=== PATIENT | female | born 1955 ===

== ENCOUNTER → 2019-12-29 14:15 | Outpatient (BNVA) | payer MEDICARE, MEDICAID, SELFPAY | PROVIDERS: PCP Internal Medicine; Visit Provider Internal Medicine | DX: I26.99 Other pulmonary embolism without acute cor pulmonale (principal); Z51.81 Encounter for therapeutic drug level monitoring; Z79.01 Long term (current) use of anticoagulants | CPT/HCPCS: 85610 ==

== ENCOUNTER 2020-01-12 15:00 | Outpatient (REF) | payer MEDICARE, MEDICAID, SELFPAY ==
[2020-01-12 15:51] LABS: Glucose Urine UA 100 MG/DL (NEG); Leukocyte Esterase Urine NEG (NEG); Nitrite Urine NEG (NEG); Specific Gravity - Urine 1.025 (1.005-1.025); Urine Blood 1+ (NEG); Urine Ketones NEG (NEG); Urine Protein NEG (NEG-TRACE)
[2020-01-12 15:53] LABS: Appearance Urine CLEAR; Color Urine YELLOW
[2020-01-12 16:10] LABS: Bacteria Urine 1+ /LPF; Squamous Epithelial Cell Urine 1+ /LPF
[2020-01-12 16:37] LABS: Creatinine Urine 87.42 mg/dL; Protein/Creatinine Ratio, Ur 0.18 (<0.2); Total Protein Urine Random 16 mg/dL (<12)
[2020-01-17 12:32] LABS: Metanephrine, Free <25 pg/mL (<=57); Normetanephrines, Free 75 pg/mL (<=148); Total Metanephrine, Free 75 pg/mL (<=205)
[2020-01-21 17:21] LABS: Renin 0.23 ng/mL/h (0.25-5.82)
== END 2020-01-12 15:01 | disposition home or self-care (01) ==
LOC: HO.LAB 15:00
PROVIDERS: PCP Internal Medicine; Visit Provider Internal Medicine Hypertension Specialist
DX: E78.00 Pure hypercholesterolemia, unspecified (principal); I10 Essential (primary) hypertension; E11.9 Type 2 diabetes mellitus without complications
CPT/HCPCS: 81001; 82088; 83835; 84156; 84244; 85610

== ENCOUNTER 2020-01-25 13:38 | Outpatient (REF) | payer MEDICARE, MEDICAID, SELFPAY ==
--- NOTE | 2020-01-25 13:47 | XR_ITS ---
EXAMINATION: LUMBAR SPINE AND RIGHT HIP. CLINICAL INFORMATION: Low back pain. COMPARISON: None. TECHNIQUE: 3 views lumbar spine and 2 views right hip. FINDINGS: LUMBAR SPINE: There is normal lumbar lordosis. The vertebral heights, alignment and disc heights are normal. No visible acute fracture, dislocation or lytic process seen. The paravertebral soft tissues are normal. RIGHT HIP: There is no acute fracture, dislocation or subluxation seen. There is soft tissue calcification superior to the greater trochanter, likely calcific tendonitis. The soft tissues are unremarkable. XR/XR hip RT min 2V IMPRESSION: Unremarkable lumbar spine exam. Likely calcific tendinitis superior to the greater trochanter right hip.
--- NOTE | 2020-01-25 13:47 | XR_ITS ---
EXAMINATION: LUMBAR SPINE AND RIGHT HIP. CLINICAL INFORMATION: Low back pain. COMPARISON: None. TECHNIQUE: 3 views lumbar spine and 2 views right hip. FINDINGS: LUMBAR SPINE: There is normal lumbar lordosis. The vertebral heights, alignment and disc heights are normal. No visible acute fracture, dislocation or lytic process seen. The paravertebral soft tissues are normal. RIGHT HIP: There is no acute fracture, dislocation or subluxation seen. There is soft tissue calcification superior to the greater trochanter, likely calcific tendonitis. The soft tissues are unremarkable. XR/XR lumbar spine 2-3V IMPRESSION: Unremarkable lumbar spine exam. Likely calcific tendinitis superior to the greater trochanter right hip.
== END 2020-01-25 13:39 | disposition home or self-care (01) ==
LOC: HO.XRAY 13:38
PROVIDERS: PCP Internal Medicine; Visit Provider Internal Medicine
DX: M25.551 Pain in right hip (principal); M54.5 Low back pain
CPT/HCPCS: 72100; 73502

== ENCOUNTER → 2020-04-16 15:01 | Outpatient (BNVA) | payer MEDICARE, MEDICAID, SELFPAY | PROVIDERS: PCP Internal Medicine; Referring Provider Internal Medicine; Visit Provider Internal Medicine | DX: E11.9 Type 2 diabetes mellitus without complications (principal); I10 Essential (primary) hypertension; E78.5 Hyperlipidemia, unspecified; E04.9 Nontoxic goiter, unspecified | CPT/HCPCS: 82947; 99202 ==

== ENCOUNTER 2020-04-25 13:56 | Outpatient (REF) | payer MEDICARE, MEDICAID, SELFPAY ==
--- NOTE | ~2020-04-25 | US_ITS ---
EXAMINATION: US THYROID CLINICAL INFORMATION: Vitamin D deficiency, unspecified COMPARISON: None TECHNIQUE: Linear transducer grayscale and color Doppler examination with attention to the region of the thyroid. FINDINGS: SIZE: Measurements of the thyroid lobes and nodules are given in sagittal, anteroposterior and transverse dimensions respectively. Right Thyroid Lobe: 5.1 x 2.1 x 1.5 cm, volume 8.4 mL. Parenchyma: The gland echotexture is heterogeneous. Thyroid vascularity is increased. Left Thyroid Lobe: 4.3 x 1.9 x 1.7 cm, volume 7.3 mL. Parenchyma: The gland echotexture is heterogeneous. Thyroid vascularity is increased. Isthmus: 0.5 cm in maximum AP dimension. Estimated total number of nodules greater than or equal to 1 cm: 1. Customer Support Manager nodules are described as follows: 1. Location: Right mid. Size: 0.8 x 0.7 x 0.7 cm, volume 0.2 mL. Nodule characteristics: Composition: Solid (2). Echogenicity: Hyperechoic (1). Shape: Not taller than wide (0). Margins: Ill-defined (0). Echogenic Foci: None (0). ACR TI-RADS total points: 3 ACR TI-RADS category: 3 2. Location: Right mid. Size: 0.8 x 0.6 x 0.6 cm, volume 0.2 mL. Nodule characteristics: Composition: Solid (2). Echogenicity: Hyperechoic (1). Shape: Not taller than wide (0). Margins: Ill-defined (0). Echogenic Foci: None (0). ACR TI-RADS total points: 3 ACR TI-RADS category: 3 3. Location: Left lower. Size: 1.5 x 1.3 x 1.2 cm, volume 1.2 mL. Nodule characteristics: Composition: Solid (2). Echogenicity: Hyperechoic (1). Shape: Not taller than wide (0). Margins: Smooth (0). Echogenic Foci: None (0). ACR TI-RADS total points: 3 ACR TI-RADS category: 3 4. Location: Left lower. Size: 0.5 x 0.3 x 0.4 cm, volume 0.03 mL. Nodule characteristics: Composition: Solid (2). Echogenicity: Very hypoechoic (3). Shape: Not taller than wide (0). Margins: Smooth (0). Echogenic Foci: None (0). ACR TI-RADS total points: 5 ACR TI-RADS category: 4 NODES: No lymphadenopathy is seen in the tissue surrounding the thyroid gland. US/US thyroid IMPRESSION: Heterogeneous thyroid gland with increased vascularity. Correlate with thyroid function. Multiple nodules are identified, as detailed above. Nodule #3 is TR3. At a maximum dimension of 1.5 cm, follow-up is recommended in 1, 3, and 5 years. ACR TI-RADS RECOMMENDATIONS: Follow-up ultrasound. * TR1 (0 point) and TR 2 (2 points): No FNA or follow up * TR3 (3 points): FNA if more than or equal to 2.5 cm in maximum dimension, follow up in 1, 3 and 5 years if 1.5 to 2.4 cm in maximum dimension. * TR 4 (4-6 points): FNA if more than or equal to 1.5 cm in maximum dimension, follow up in 1, 2, 3 and 5 years if 1 to 1.4 cm in maximum dimension. * TR 5 (more than or equal to 7 points): FNA if more than or equal to 1 cm in maximum dimension, follow up every year for 5 years if 0.5 to 0.9 cm in maximum dimension. TR3, TR4 or TR5 nodules that are below the size threshold for follow up receive no follow up.
== END 2020-04-25 13:57 | disposition home or self-care (01) ==
LOC: HO.US 13:56
PROVIDERS: Visit Provider Internal Medicine
DX: E04.9 Nontoxic goiter, unspecified (principal); E55.9 Vitamin D deficiency, unspecified
CPT/HCPCS: 76536; 85610; 99211

== ENCOUNTER → 2020-04-27 14:06 | Outpatient (BNVA) | payer MEDICARE, MEDICAID, SELFPAY | PROVIDERS: PCP Internal Medicine; Visit Provider Internal Medicine | DX: I26.99 Other pulmonary embolism without acute cor pulmonale (principal); Z51.81 Encounter for therapeutic drug level monitoring; Z79.01 Long term (current) use of anticoagulants | CPT/HCPCS: 85610; 99211 ==

== ENCOUNTER 2020-05-02 12:48 | Outpatient (REF) | payer MEDICARE, MEDICAID, SELFPAY ==
--- NOTE | ~2020-05-02 | MM_ITS ---
EXAMINATION: MM DIAGNOSTIC DIGITAL BREAST TOMOSYNTHESIS, BILATERAL US DIAGNOSTIC ULTRASOUND BREAST, RIGHT CLINICAL INFORMATION: Palpable lump right periareolar region noted by patient. Also breast pain. Due for yearly. The lifetime risk of breast cancer based on the Tyrer-Cuzick Model is 9%. COMPARISON: Mammography: 10/08/2017, 07/02/2016, 12/23/2012 TECHNIQUE: Digital breast tomosynthesis is performed in both the craniocaudal and mediolateral oblique views along with computer-aided detection (CAD). Synthesized 2D images are generated from the tomosynthesis. Additional views are obtained: Exaggerated left CC, magnification right CC, magnification right ML. Ultrasound right breast is targeted to the area of palpable concern. Additional imaging performed inferior breast 4:00 through 6:00 position. Grayscale imaging and color Doppler are performed without and with harmonics. FINDINGS: There are scattered areas of fibroglandular density (ACR BI-RADS breast composition Category b). The left breast is unremarkable, unchanged from prior studies. There is no mass or architectural abnormality or abnormal calcifications. Scattered vascular and punctate round calcifications are again seen. The right breast has mild increased coarse calcifications outer quadrant mid to posterior 9:30 o'clock position and a few central mid right breast. They are slightly increased since 2018 will be reassessed again in 6 months to include magnification views. Fibronodular parenchymal pattern is similar to prior exam. No architectural abnormality. Ultrasound right breast demonstrates oval heterogeneous hypoechoic circumscribed mass 0.8 x 0.6 cm in contact with the deep dermis at the 8:00 areolar margin and corresponding to the palpable finding. There is no definite claw sign with the deep dermis to confirm an intradermal lesion. No stalk seen extending to skin surface. No increased or decreased through transmission of sound. Color Doppler shows internal vascularity consistent with a solid mass. Results are discussed with the patient at time of visit. Excisional or percutaneous biopsy of the palpable lesion is recommended. Given the location, surgical consult is recommended to assist with management plans. MM/MM tomosynthesis diagnostic BI IMPRESSION: Right: -Nodule 0.8 cm at areolar margin in contact with deep dermis and corresponding to the palpable lesion. Probable benign mildly increased coarse calcifications central and outer right breast. Left: No mammographic evidence of malignancy. ASSESSMENT: BI-RADS 4: Suspicious RECOMMENDATION: 1. Surgical consult regarding management of the right breast mass. 2. Short interval 6 month follow up right mammography for probable benign calcifications right breast. This patient's information was entered into a reminder system with a target due date for their next mammogram.
== END 2020-05-02 12:49 | disposition home or self-care (01) ==
LOC: HO.MAMMO 12:48
PROVIDERS: PCP Nurse Practitioner Family; Visit Provider Nurse Practitioner Family
DX: N64.4 Mastodynia (principal)
CPT/HCPCS: 76642; 77062; 77066; 85610; 99211

== ENCOUNTER → 2020-05-11 10:09 | Outpatient (BNVA) | payer MEDICARE, MEDICAID, SELFPAY | PROVIDERS: PCP Internal Medicine; Visit Provider Internal Medicine | DX: I26.99 Other pulmonary embolism without acute cor pulmonale (principal); Z51.81 Encounter for therapeutic drug level monitoring; Z79.01 Long term (current) use of anticoagulants | CPT/HCPCS: 85610; 99211 ==

== ENCOUNTER → 2020-05-16 15:30 | Outpatient (BNVA) | payer MEDICARE, MEDICAID, SELFPAY | PROVIDERS: PCP Internal Medicine; Visit Provider Surgery | DX: N63.10 Unspecified lump in the right breast, unspecified quadrant (principal) | CPT/HCPCS: 99202 ==

== ENCOUNTER → 2020-05-18 13:53 | Outpatient (BNVA) | payer MEDICARE, MEDICAID, SELFPAY | PROVIDERS: PCP Internal Medicine; Visit Provider Internal Medicine | DX: I26.99 Other pulmonary embolism without acute cor pulmonale (principal); Z51.81 Encounter for therapeutic drug level monitoring; Z79.01 Long term (current) use of anticoagulants | CPT/HCPCS: 85610; 99211 ==

== ENCOUNTER → 2020-05-22 13:58 | Outpatient (BNVA) | payer MEDICARE, MEDICAID, SELFPAY | PROVIDERS: PCP Internal Medicine; Visit Provider Internal Medicine | DX: I26.99 Other pulmonary embolism without acute cor pulmonale (principal); Z51.81 Encounter for therapeutic drug level monitoring; Z79.01 Long term (current) use of anticoagulants | CPT/HCPCS: 85610; 99211 ==

== ENCOUNTER 2020-05-25 07:56 | Outpatient (REF) | payer MEDICARE, MEDICAID, SELFPAY ==
[2020-05-25 07:14] VITALS: BP 196/83; PULSE 84; RESP 17; TEMP 36.9; O2SAT 100; BMI 32.7
--- NOTE | 2020-05-25 08:39 | W.PM.OPN ---
Operative Note Operative Note Date of Service: 05/25/20 Narrative: Preoperative diagnosis:Right nipple cyst Postoperative diagnosis: same Procedure: excision of right nipple cyst Surgeon: Jorge Alberto Humphrey MD Emergency Department Rn: none Anesthesia: local Indications for procedure: 64-year-old female with a previous history of an infected cyst of the right nipple now presented for excision. Operative findings: Cystic lesion located in the 7 to 8 o'clock position within the a areola measuring approximately 1 cm in diameter Specimen: cyst right nipple Estimated blood loss: 2 cc Complications: none Procedure details: patient was brought to the minor surgery suite placed in a supine position. After assuring the site of surgery and assuring informed consent the patient's right breast was prepped with Betadine and draped in a sterile fashion. Local anesthesia consisting 1% lidocaine with epinephrine was infiltrated over the cyst. Incision was then made directly over the cyst and carried down through subcutaneous tissue. Sharp dissection was then used to dissect the cyst from the surrounding subcutaneous tissue. Hemostasis was maintained with light pressure. the cyst was excise sent to pathology for further. Skin was then closed using interrupted 5 0 nylon sutures. 2 x 2 gauze and Tegaderm were then applied. The patient tolerated the procedure well. Sponge, instrument, needle counts were correct. The patient was discharged to home in stable condition.
--- NOTE | 2020-05-25 08:42 | MHC.SHP ---
Pre-Procedural Eval Section A The patient is an INPATIENT: No Changes since office visit: No Cold of Flu in the past 2 weeks, No New Medical Problems, No Changes in Medication and No Patient answered all questions The History & Physical has been completed within 30 days and I have reviewed it.: Yes Section B Chief Complaint: Right Breast Mass Allergies: Allergies Allergy/AdvReac Type Severity Reaction Status Date / Time acetaminophen [From Percocet] Allergy Severe Shortness Verified 05/22/20 13:59 of Breath Penicillins [PENICILLINS] Allergy Severe SOB, rash, Verified 05/22/20 13:59 itching codeine [CODEINE] Allergy Intermediate RASH SOB Verified 05/22/20 13:59 oxycodone [From PERCOCET] Allergy Intermediate RASH SOB Verified 05/22/20 13:59 kiwi [KIWI] Allergy Mild ITCHY IF Verified 05/22/20 13:59 TOUCHES pineapple [PINEAPPLE] Allergy Mild ITCHY IF Verified 05/22/20 13:59 TOUCHES metformin AdvReac Intermediate dizziness, Verified 05/22/20 13:59 blurred vision Plan Diagnosis/Plan: Unchanged I have reviewed the history and physical and performed a pertinent physical examination on my patient. No changes have occurred unless specified.
== END 2020-05-25 07:57 | disposition home or self-care (01) ==
LOC: HO.MS 07:56
PROVIDERS: PCP Internal Medicine; Visit Provider Surgery
PROC: (CPT 19120; principal; 2020-05-25 08:00)
DX: D24.1 Benign neoplasm of right breast (principal); I10 Essential (primary) hypertension; E11.9 Type 2 diabetes mellitus without complications; Z79.899 Other long term (current) drug therapy; Z88.0 Allergy status to penicillin; Z88.8 Allergy status to other drugs, medicaments and biological substances
CPT/HCPCS: 19120; 88304; 88305

== ENCOUNTER → 2020-05-29 14:19 | Outpatient (BNVA) | payer MEDICARE, MEDICAID, SELFPAY | PROVIDERS: PCP Internal Medicine; Visit Provider Internal Medicine | DX: I26.99 Other pulmonary embolism without acute cor pulmonale (principal); Z51.81 Encounter for therapeutic drug level monitoring; Z79.01 Long term (current) use of anticoagulants | CPT/HCPCS: 85610; 99211 ==

== ENCOUNTER → 2020-06-05 14:52 | Outpatient (BNVA) | payer MEDICARE, MEDICAID, SELFPAY | PROVIDERS: PCP Internal Medicine; Visit Provider Surgery | DX: N63.10 Unspecified lump in the right breast, unspecified quadrant (principal) | CPT/HCPCS: 99212 ==

== ENCOUNTER → 2020-06-07 13:30 | Outpatient (BNVA) | payer MEDICARE, MEDICAID, SELFPAY | PROVIDERS: PCP Internal Medicine; Visit Provider Internal Medicine | DX: I26.99 Other pulmonary embolism without acute cor pulmonale (principal); Z51.81 Encounter for therapeutic drug level monitoring; Z79.01 Long term (current) use of anticoagulants | CPT/HCPCS: 85610; 99211 ==

== ENCOUNTER → 2020-06-13 13:29 | Outpatient (BNVA) | payer MEDICARE, MEDICAID, SELFPAY | PROVIDERS: PCP Internal Medicine; Visit Provider Internal Medicine | DX: I26.99 Other pulmonary embolism without acute cor pulmonale (principal); Z51.81 Encounter for therapeutic drug level monitoring; Z79.01 Long term (current) use of anticoagulants | CPT/HCPCS: 85610; 99211 ==

== ENCOUNTER → 2020-06-14 14:08 | Outpatient (BNVA) | payer MEDICARE, MEDICAID, SELFPAY | PROVIDERS: PCP Internal Medicine; Visit Provider Dietitian, Registered ==

== ENCOUNTER 2020-06-15 09:47 | Outpatient (REF) | payer MEDICARE, MEDICAID, SELFPAY ==
[2020-06-15 11:28] LABS: Alanine Aminotransferase 11 U/L (0-31); Alkaline Phosphatase 97 U/L (39-117); Anion Gap 14 (12-20); Aspartate Amino Transferase 11 U/L (5-31); Bilirubin Total 0.7 mg/dL (0.0-1.0); Blood Urea Nitrogen 14 mg/dL (9-16); Calcium 8.7 mg/dL (8.4-10.2); Carbon Dioxide 29 mmol/L (22-29); Chloride 102 mmol/L (96-108); Cholesterol 282 mg/dL; Estimated Average Glucose 180 mg/dL; Estimated Glomerular Filt Rate > 60; Glucose Random 182 mg/dL (60-115); HDL Cholesterol 89 mg/dL; Hemoglobin A1c % 7.9 %; LDL Cholesterol Calculated 174 mg/dl; Potassium 3.6 mmol/L (3.3-5.1); Sodium 141 mmol/L (135-145); Total Protein 6.7 g/dL (6.5-8.0); Triglycerides 97 mg/dL
[2020-06-15 11:45] LABS: Glucose Urine UA NEG (NEG); Leukocyte Esterase Urine NEG (NEG); Nitrite Urine NEG (NEG); Urine Blood 1+ (NEG); Urine Ketones NEG (NEG); Urine Protein NEG (NEG-TRACE)
[2020-06-15 11:49] LABS: Appearance Urine CLEAR; Color Urine YELLOW
[2020-06-15 12:10] LABS: Creatinine Urine 104.84 mg/dL
[2020-06-15 12:17] LABS: Mucus Urine 1+ /LPF; Squamous Epithelial Cell Urine TRACE /LPF; WBC Urine 0 /HPF (0-4)
[2020-06-16 08:07] LABS: LDL Cholesterol Direct 165 mg/dL (<100)
== END 2020-06-15 09:48 | disposition home or self-care (01) ==
LOC: HO.LAB 09:47
PROVIDERS: Absent Provider Nurse Practitioner Family; PCP Internal Medicine; Visit Provider Internal Medicine
DX: E11.9 Type 2 diabetes mellitus without complications (principal); E55.9 Vitamin D deficiency, unspecified; N39.0 Urinary tract infection, site not specified
CPT/HCPCS: 36415; 80053; 80061; 81001; 82043; 82306; 83036; 83721

== ENCOUNTER → 2020-06-27 13:32 | Outpatient (BNVA) | payer MEDICARE, MEDICAID, SELFPAY | PROVIDERS: PCP Internal Medicine; Visit Provider Internal Medicine | DX: I26.99 Other pulmonary embolism without acute cor pulmonale (principal); Z51.81 Encounter for therapeutic drug level monitoring; Z79.01 Long term (current) use of anticoagulants | CPT/HCPCS: 85610; 99211 ==

== ENCOUNTER → 2020-06-29 14:24 | Outpatient (BNVA) | payer MEDICARE, MEDICAID, SELFPAY | PROVIDERS: PCP Internal Medicine; Visit Provider Internal Medicine | DX: I26.99 Other pulmonary embolism without acute cor pulmonale (principal); Z79.01 Long term (current) use of anticoagulants; Z51.81 Encounter for therapeutic drug level monitoring | CPT/HCPCS: 85610; 99211 ==

== ENCOUNTER → 2020-07-05 13:26 | Outpatient (BNVA) | payer MEDICARE, MEDICAID, SELFPAY | PROVIDERS: PCP Internal Medicine; Visit Provider Internal Medicine | DX: Z95.2 Presence of prosthetic heart valve (principal); Z79.01 Long term (current) use of anticoagulants; Z51.81 Encounter for therapeutic drug level monitoring | CPT/HCPCS: 85610; 99211 ==

== ENCOUNTER → 2020-07-12 13:47 | Outpatient (BNVA) | payer MEDICARE, MEDICAID, SELFPAY | PROVIDERS: PCP Internal Medicine; Visit Provider Internal Medicine | DX: I26.99 Other pulmonary embolism without acute cor pulmonale (principal); Z79.01 Long term (current) use of anticoagulants; Z51.81 Encounter for therapeutic drug level monitoring | CPT/HCPCS: 85610; 99211 ==

== ENCOUNTER → 2020-07-19 14:00 | Outpatient (BNVA) | payer MEDICARE, MEDICAID, SELFPAY | PROVIDERS: PCP Internal Medicine; Visit Provider Internal Medicine | DX: I26.99 Other pulmonary embolism without acute cor pulmonale (principal); Z51.81 Encounter for therapeutic drug level monitoring; Z79.01 Long term (current) use of anticoagulants | CPT/HCPCS: 85610; 99211 ==

== ENCOUNTER 2020-07-26 13:17 | Outpatient (REF) | payer MEDICARE, MEDICAID, SELFPAY ==
[2020-07-26 16:45] LABS: Glucose Urine UA 500 MG/DL (NEG); Leukocyte Esterase Urine NEG (NEG); Nitrite Urine NEG (NEG); Specific Gravity - Urine >= 1.030 (1.005-1.025); Urine Blood 1+ (NEG); Urine Ketones 5 MG/DL (NEG); Urine Protein 1+ MG/DL (NEG-TRACE)
[2020-07-26 16:49] LABS: Appearance Urine CLOUDY; Color Urine YELLOW
[2020-07-26 16:56] LABS: Bacteria Urine TRACE /LPF; Squamous Epithelial Cell Urine 2+ /LPF; WBC Urine 0-2 /HPF (0-4)
[2020-07-26 16:57] LABS: Amorphous Sediment Urine 2+ /LPF
[2020-07-27 12:27] LABS: BV Int Neg Control Negative (Negative)
[2020-07-27 12:28] LABS: BV Int Pos Control Positive (Positive)
[2020-07-29 07:32] LABS: HPV mRNA E6/E7 rflx Not Detected (Not Detected)
== END 2020-07-26 13:18 | disposition home or self-care (01) ==
LOC: HO.LAB 13:17
PROVIDERS: Advanced Practice Midwife; PCP Internal Medicine; Visit Provider Internal Medicine
DX: Z01.419 Encounter for gynecological examination (general) (routine) without abnormal findings (principal); N89.8 Other specified noninflammatory disorders of vagina; R35.0 Frequency of micturition; E11.9 Type 2 diabetes mellitus without complications; I10 Essential (primary) hypertension; E78.5 Hyperlipidemia, unspecified; Z88.6 Allergy status to analgesic agent; Z88.5 Allergy status to narcotic agent; Z88.0 Allergy status to penicillin; Z88.8 Allergy status to other drugs, medicaments and biological substances; Z91.018 Allergy to other foods
CPT/HCPCS: 81001; 85610; 87480; 87510; 87624; 87660; 88142; 99211

== ENCOUNTER → 2020-08-09 10:23 | Outpatient (BNVA) | payer MEDICARE, MEDICAID, SELFPAY | PROVIDERS: PCP Internal Medicine; Visit Provider Internal Medicine | DX: K62.5 Hemorrhage of anus and rectum (principal); I26.99 Other pulmonary embolism without acute cor pulmonale; Z51.81 Encounter for therapeutic drug level monitoring; Z79.82 Long term (current) use of aspirin; Z79.01 Long term (current) use of anticoagulants; Z79.899 Other long term (current) drug therapy | CPT/HCPCS: 46600; 85610; 99202; 99211 ==

== ENCOUNTER → 2020-08-16 12:59 | Outpatient (BNVA) | payer MEDICARE, MEDICAID, SELFPAY | PROVIDERS: PCP Internal Medicine; Visit Provider Internal Medicine | DX: E11.9 Type 2 diabetes mellitus without complications (principal); I10 Essential (primary) hypertension; E78.5 Hyperlipidemia, unspecified; E55.9 Vitamin D deficiency, unspecified; I26.99 Other pulmonary embolism without acute cor pulmonale; Z51.81 Encounter for therapeutic drug level monitoring; Z79.01 Long term (current) use of anticoagulants | CPT/HCPCS: 82947; 85610; 99211; 99212 ==

== ENCOUNTER → 2020-08-30 14:24 | Outpatient (BNVA) | payer MEDICARE, MEDICAID, SELFPAY | PROVIDERS: PCP Internal Medicine; Visit Provider Internal Medicine | DX: I26.99 Other pulmonary embolism without acute cor pulmonale (principal); Z51.81 Encounter for therapeutic drug level monitoring; Z79.01 Long term (current) use of anticoagulants | CPT/HCPCS: 85610; 99211 ==

== ENCOUNTER 2020-09-18 17:50 | Outpatient (REF) | payer MEDICARE, MEDICAID, SELFPAY | END 2020-09-18 17:51 | disposition home or self-care (01) | LOC: HO.LNP 17:50 | PROVIDERS: Visit Provider Internal Medicine | DX: R35.0 Frequency of micturition (principal); R30.0 Dysuria | CPT/HCPCS: 87086; 87088; 87186 ==

== ENCOUNTER 2020-09-21 06:44 | Day surgery (SDC) | payer MEDICARE, MEDICAID, SELFPAY ==
[2020-09-17 11:07] VITALS: BMI 32.8
--- NOTE | 2020-09-20 09:28 | P.CONAN_ITS ---
Documented by User: Keisha Bray 09/20/20 09:39 HPI - Anesthesia Eval Consult details Narrative: 64yo F for Colonoscopy with poss Polypectomy started on abx for UTI 09/18/20 Coumadin for h/o PE PMFSH Active Problems Active Problems: All Active Problems (Updated 09/18/20 @ 15:15 by Erick Villanueva MD) Erythematous rash (Acute) Urinary frequency (Acute) Varicose veins of both lower extremities with pain (Acute) Current use of anticoagulant therapy (Acute) Personal history of pulmonary embolism (Acute) Diabetes (Acute) Breast mass, right (Acute) 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 (Acute) Rectal bleeding (Acute) Obesity (BMI 30-39.9) (Acute) Overactive bladder (Acute) Migraine (Acute) GERD without esophagitis (Acute) Allergic rhinitis (Acute) Fibromyalgia (Acute) Vitamin B12 deficiency (Acute) Asthma (Acute) Bilateral primary osteoarthritis of knee (Acute) Pure hypercholesterolemia (Acute) Benign essential hypertension (Acute) Bilateral lower extremity edema (Acute) Medicare annual wellness visit, initial (Acute) Mammogram abnormal (Acute) Intertrigo (Acute) UTI (urinary tract infection) (Acute) Breast nodule (Acute) Goiter (Acute) Vitamin D deficiency (Acute) HLD (hyperlipidemia) (Acute) HTN (hypertension) (Acute) T2DM (type 2 diabetes mellitus) (Acute) Arthritis (Acute) Breast pain, right (Acute) Calcific tendinitis of right hip (Acute) Right lumbar radiculopathy (Acute) Right hip pain (Acute) Low back pain (Acute) Past Medical History Medical History Allergic rhinitis Arthritis Asthma Benign essential hypertension Bilateral lower extremity edema Bilateral primary osteoarthritis of knee Breast nodule Breast pain, right Calcific tendinitis of right hip Fibromyalgia GERD without esophagitis Goiter HLD (hyperlipidemia) HTN (hypertension) Hx pulmonary embolism Intertrigo Low back pain Mammogram abnormal Medicare annual wellness visit, initial Migraine Obesity (BMI 30-39.9) Overactive bladder Pure hypercholesterolemia Rectal bleeding Right hip pain Right lumbar radiculopathy T2DM (type 2 diabetes mellitus) Urinary frequency UTI (urinary tract infection) Varicose veins of both lower extremities with pain Vitamin B12 deficiency Vitamin D deficiency Family History Family History Father Hypertension Myocardial infarction Stroke Mother Hypertension Diabetes Surgical History Surgical History History of colonoscopy History of incision and drainage History of mammogram History of tonsillectomy and adenoidectomy Hx of breast surgery Hx of cataract extraction Hx of cholecystectomy Hx of eye surgery Hx of tubal ligation Social History Social History Housing: House Alcohol intake: never Patient Tobacco Use Status: Never used Tobacco Second Hand Smoke Exposure: No Use of substances other than those prescribed or required for medical reasons: No Have you been hit, kicked, punched, or otherwise hurt by someone within the past year? If so, by whom?: No Are you DNR?: No Advance Directives: No Advance Directives Information Provided: No Advance Directives on File: No Recently lost weight without trying: No Eating poorly because of decreased appetite: No Nutrition Risks: No Nutritional Risk Patient : No service: No Current occupational status: disabled Meds Allergies Allergy/AdvReac Type Severity Reaction Status Date / Time Penicillins [PENICILLINS] Allergy Severe SOB, rash, Verified 09/21/20 07:23 itching codeine [CODEINE] Allergy Intermediate RASH SOB Verified 09/21/20 07:23 oxycodone [From PERCOCET] Allergy Intermediate RASH SOB Verified 09/21/20 07:23 kiwi [KIWI] Allergy Mild ITCHY IF Verified 09/21/20 07:23 TOUCHES pineapple [PINEAPPLE] Allergy Mild ITCHY IF Verified 09/21/20 07:23 TOUCHES metformin AdvReac Intermediate dizziness, Verified 09/21/20 07:23 blurred vision Home Medications Medication Instructions Recorded Confirmed Last Taken Type albuterol sulfate 90 mcg/actuation 2 puff INHALATION Q4-6H PRN 01/24/20 09/18/20 Unknown History aerosol inhaler amlodipine 10 mg tablet 10 mg PO DAILY 01/24/20 09/18/20 Unknown History ascorbate calcium (vitamin C) 500 500 mg PO DAILY 01/24/20 09/18/20 Unknown History mg tablet aspirin 81 mg tablet,delayed 81 mg PO DAILY 01/24/20 09/18/20 09/20/20 History release budesonide-formoterol HFA 160 2 puff INHALATION BID 01/24/20 09/18/20 Unknown History mcg-4.5 mcg/actuation aerosol inhaler clonidine HCl 0.1 mg tablet 0.1 mg PO BID 01/24/20 09/18/20 Unknown History cocoa butter-zinc oxide 76 %-10 % 1 supp IN BEDTIME 01/24/20 09/18/20 Unknown History rectal suppository cyanocobalamin (vitamin B-12) 1,000 mcg PO DAILY 01/24/20 09/18/20 Unknown History 1,000 mcg capsule desloratadine 5 mg tablet 5 mg PO DAILY 01/24/20 09/18/20 Unknown History ezetimibe 10 mg tablet 10 mg PO DAILY 01/24/20 09/18/20 Unknown History fluticasone 250 mcg-salmeterol 50 1 inh INHALATION BID 01/24/20 09/18/20 Unknown History mcg/dose blistr powdr for inhalation fluticasone propionate 50 2 spray INTRANASAL DAILY 01/24/20 09/18/20 Unknown History mcg/actuation nasal spray,suspension hydrochlorothiazide 25 mg tablet 25 mg PO DAILY 01/24/20 09/18/20 Unknown His tory labetalol 200 mg tablet 200 mg PO BID 01/24/20 09/18/20 Unknown History montelukast 10 mg tablet 10 mg PO DAILY 01/24/20 09/18/20 Unknown History omeprazole 20 mg capsule,delayed 20 mg PO DAILY 01/24/20 09/18/20 Unknown History release ondansetron 8 mg disintegrating 8 mg PO Q8H 01/24/20 09/18/20 Unknown History tablet sitagliptin 100 mg tablet 100 mg PO DAILY 01/24/20 09/18/20 Unknown History topiramate 25 mg tablet 25 mg PO BEDTIME tab 01/24/20 09/18/20 Unknown History metformin 500 mg tablet 1,000 mg PO BID tab 04/16/20 09/18/20 Unknown History albuterol sulfate 2.5 mg CONTINUOUS NEBULIZATION 06/13/20 09/18/20 Unknown History Q4-6H PRN metformin 500 mg tablet,extended mg PO 07/05/20 09/18/20 Unknown History release 24 hr Exam Exam Date and Time: September 20, 2020 0928 Height,Weight and Vital Signs: Height 5 ft 7 in Weight 95.254 kg Pertinent Lab Results Pertinent Lab Results: Laboratory Tests 05/03/19 06/15/20 12:10 10:10 WBC 6.4 Hgb 10.8 L Hct 34.4 L Plt Count 268 Sodium 141 Potassium 3.6 Chloride 102 Carbon Dioxide 29 BUN 14 Creatinine 0.69 Assessment and Plan Assessment Anesthesia Assessment: Chart Reviewed Documented by User: Katt Mayberry 09/21/20 07:37 [facility] Past Medical History Medical History Allergic rhinitis Arthritis Asthma Benign essential hypertension Bilateral lower extremity edema Bilateral primary osteoarthritis of knee Breast nodule Breast pain, right Calcific tendinitis of right hip Fibromyalgia GERD without esophagitis Goiter HLD (hyperlipidemia) HTN (hypertension) Hx pulmonary embolism Intertrigo Low back pain Mammogram abnormal Medicare annual wellness visit, initial Migraine Obesity (BMI 30-39.9) Overactive bladder Pure hypercholesterolemia Rectal bleeding Right hip pain Right lumbar radiculopathy T2DM (type 2 diabetes mellitus) Urinary frequency UTI (urinary tract infection) Varicose veins of both lower extremities with pain Vitamin B12 deficiency Vitamin D deficiency Family History Family History Father Hypertension Myocardial infarction Stroke Mother Hypertension Diabetes Surgical History Surgical History History of colonoscopy History of incision and drainage History of mammogram History of tonsillectomy and adenoidectomy Hx of breast surgery Hx of cataract extraction Hx of cholecystectomy Hx of eye surgery Hx of tubal ligation Social History Social History Housing: House Alcohol intake: never Patient Tobacco Use Status: Never used Tobacco Second Hand Smoke Exposure: No Use of substances other than those prescribed or required for medical reasons: No Have you been hit, kicked, punched, or otherwise hurt by someone within the past year? If so, by whom?: No Are you DNR?: No Advance Directives: No Advance Directives Information Provided: No Advance Directives on File: No Recently lost weight without trying: No Eating poorly because of decreased appetite: No Nutrition Risks: No Nutritional Risk Patient : No service: No Current occupational status: disabled Meds Allergies Allergy/AdvReac Type Severity Reaction Status Date / Time Penicillins [PENICILLINS] Allergy Severe SOB, rash, Verified 09/21/20 07:23 itching codeine [CODEINE] Allergy Intermediate RASH SOB Verified 09/21/20 07:23 oxycodone [From PERCOCET] Allergy Intermediate RASH SOB Verified 09/21/20 07:23 kiwi [KIWI] Allergy Mild ITCHY IF Verified 09/21/20 07:23 TOUCHES pineapple [PINEAPPLE] Allergy Mild ITCHY IF Verified 09/21/20 07:23 TOUCHES metformin AdvReac Intermediate dizziness, Verified 09/21/20 07:23 blurred vision Home Medications Medication Instructions Recorded Confirmed Last Taken Type albuterol sulfate 90 mcg/actuation 2 puff INHALATION Q4-6H PRN 01/24/20 09/18/20 Unknown History aerosol inhaler amlodipine 10 mg tablet 10 mg PO DAILY 01/24/20 09/18/20 Unknown History ascorbate calcium (vitamin C) 500 500 mg PO DAILY 01/24/20 09/18/20 Unknown History mg tablet aspirin 81 mg tablet,delayed 81 mg PO DAILY 01/24/20 09/18/20 09/20/20 History release budesonide-formoterol HFA 160 2 puff INHALATION BID 01/24/20 09/18/20 Unknown History mcg-4.5 mcg/actuation aerosol inhaler clonidine HCl 0.1 mg tablet 0.1 mg PO BID 01/24/20 09/18/20 Unknown History cocoa butter-zinc oxide 76 %-10 % 1 supp IN BEDTIME 01/24/20 09/18/20 Unknown History rectal suppository cyanocobalamin (vitamin B-12) 1,000 mcg PO DAILY 01/24/20 09/18/20 Unknown History 1,000 mcg capsule desloratadine 5 mg tablet 5 mg PO DAILY 01/24/20 09/18/20 Unknown History ezetimibe 10 mg tablet 10 mg PO DAILY 01/24/20 09/18/20 Unknown History fluticasone 250 mcg-salmeterol 50 1 inh INHALATION BID 01/24/20 09/18/20 Unknown History mcg/dose blistr powdr for inhalation fluticasone propionate 50 2 spray INTRANASAL DAILY 01/24/20 09/18/20 Unknown History mcg/actuation nasal spray,suspension hydrochlorothiazide 25 mg tablet 25 mg PO DAILY 01/24/20 09/18/20 Unknown History labetalol 200 mg tablet 200 mg PO BID 01/24/20 09/18/20 Unknown History montelukast 10 mg tablet 10 mg PO DAILY 01/24/20 09/18/20 Unknown History omeprazole 20 mg capsule,delayed 20 mg PO DAILY 01/24/20 09/18/20 Unknown History release ondansetron 8 mg disintegrating 8 mg PO Q8H 01/24/20 09/18/20 Unknown History tablet sitagliptin 100 mg tablet 100 mg PO DAILY 01/24/20 09/18/20 Unknown History topiramate 25 mg tablet 25 mg PO BEDTIME tab 01/24/20 09/18/20 Unknown History metformin 500 mg tablet 1,000 mg PO BID tab 04/16/20 09/18/20 Unknown History albuterol sulfate 2.5 mg CONTINUOUS NEBULIZATION 06/13/20 09/18/20 Unknown History Q4-6H PRN metformin 500 mg tablet,extended mg PO 07/05/20 09/18/20 Unknown History release 24 hr Exam Airway Mallampati Class: II TM Dist: >3cm Neck ROM: Full Heart: RRR Lungs: CTA Assessment and Plan Assessment Anesthesia Assessment: Anesthesia Plan Discussed and Chart Reviewed Final Anesthetic Review NPO: Yes ASA Class: III Final Preanesthetic Review: Meds/Allgs Chart Reviewed, Consent Obtained/Reviewed and Anes Risks/Benef Reviewed Patient Risk: Intermediate Procedure Risk: Low Anesthetic Plan Anesthetic Plan: MAC: Disposition: Standard PACU
[2020-09-21 06:56] LABS: Glucose, Whole Blood 253 mg/dL (60-115)
[2020-09-21 07:02] VITALS: BP 193/79; PULSE 96; RESP 18; TEMP 36.3; O2SAT 100
[2020-09-21 07:05] LABS: INTERNATIONAL NORM RATIO 1.3 (0.9-1.1); Prothrombin Time 15.3 SEC (10.8-13.0)
[2020-09-21] MEDS: Lactated Ringers 1,000 ML 100 ML IVCONT (07:18)
--- NOTE | 2020-09-21 07:28 | MHC.SHP ---
Pre-Procedural Eval Section A Date of Service: 09/21/20 Section B Chief Complaint: rectal bleeding Details of Present Illness: has periodic rectal bleeding, on Coumadin Relevant Family History (Specify if Yes): No Relevant Social History: None Present Medications: see Short Stay Collaborative assessment Medical History: Significant History (DM, HTN, fibromylagia, GERD, back pain, h/o of PE) Allergies: Allergies Allergy/AdvReac Type Severity Reaction Status Date / Time Penicillins [PENICILLINS] Allergy Severe SOB, rash, Verified 09/21/20 07:23 itching codeine [CODEINE] Allergy Intermediate RASH SOB Verified 09/21/20 07:23 oxycodone [From PERCOCET] Allergy Intermediate RASH SOB Verified 09/21/20 07:23 kiwi [KIWI] Allergy Mild ITCHY IF Verified 09/21/20 07:23 TOUCHES pineapple [PINEAPPLE] Allergy Mild ITCHY IF Verified 09/21/20 07:23 TOUCHES metformin AdvReac Intermediate dizziness, Verified 09/21/20 07:23 blurred vision Review of Systems Sugical H&P ROS: Negative: Constitution, Cardiovascular, Respiratory, Neurological, Psychiatric, Hem-Onc, Allergic/Immunologic, Gastrointestinal, Genitourinary, Musculoskeletal, Integumentary, Endocrine and Eyes/Ears/Nose/Throat Exam Surgical H&P Exam: Normal: HEENT, Normal: Heart, Normal: Lungs, Normal: Extremities, Normal: Abdomen, Normal: Skin and Normal: Neurological Plan Diagnosis/Plan: Unchanged I have reviewed the history and physical and performed a pertinent physical examination on my patient. No changes have occurred unless specified.
[2020-09-21 07:52] VITALS: BP 126/63; PULSE 80; RESP 14; TEMP 36.2; O2SAT 97
--- NOTE | 2020-09-21 07:53 | W.PM.OPN ---
Operative Note Operative Note Date of Service: 09/21/20 Narrative: Preop diagnosis: Rectal bleeding Postop diagnosis: 1. heavy sigmoid diverticulosis 2. external and internal hemorrhoids Procedure: Colonoscopy Surgeon: Ck Yeung MD the patient is a 64-year-old female referred to me because of passage of bright blood per rectum periodically. She is on anticoagulation for history of PE. Her last colonoscopy was in 2012. I recommended a follow-up colonoscopy because of her bleeding. She understood the technique of the procedure as well as the risks, benefits, and alternatives. She was brought to the operating room placed in left lateral decubitus position under monitored anesthesia care. A full digital rectal wasdone. There was note of bulky internal and external hemorrhoids . The tip of the Olympus scope was gently inserted through the anal orifice and advanced with insufflation all the way to the cecum. The cecum was intubated. The cecum was identified via visualization of the ileocecal valve as well as the appendiceal orifice. The cecal mucosa was unremarkable. The scope was gradually withdrawn with careful examination of the entire colonic mucosa being done with scope withdrawal. The patient had good bowel prep so it was unlikely that any lesion may have been missed. There was note of heavy diverticulosis in the sigmoid. The rectum was reached and there were no lesions seen. The anal canal showed bulky internal andexternal hemorrhoids. The scope was then withdrawn completely. The patient tolerated procedure well. There were no complications noted . She falls at average risk for colon cancer so her next colonoscopy may be in 10 years.
--- NOTE | 2020-09-21 07:57 | PM.OP ---
Brief Operative Note Date of Service: 09/21/20 Pre-op diagnosis: Rectal bleeding Post-op diagnosis: other ( internal and external hemorrhoids, sigmoid diverticulosis) Procedure: colonoscopy Surgeon: Ck Yeung MD Anesthesia: MAC Was an Coronary Care Unit Nurse used for this Procedure?: No Estimated blood loss (mL): 0 Pathology: none sent Condition: stable Disposition: PACU
[2020-09-21 08:07] VITALS: BP 165/79; PULSE 83; RESP 17; TEMP 36.2; O2SAT 97
--- NOTE | 2020-09-21 08:29 | PC.NURSE ---
Pt became nauseous upon going to DC area. Anesthesia Dr. Correa contacted. Medicated with Zofran 4 mg SL. Awaiting for med effect, no vomiting. Skin warm, dry, skin pale. Resting presently. Denies any pain.
== END 2020-09-21 09:05 | disposition home or self-care (01) ==
PROVIDERS: Nurse Practitioner; PCP Internal Medicine; Visit Provider Surgery
PROC: 0DBE8ZZ Excision of Large Intestine, Via Natural or Artificial Opening Endoscopic (ICD-10-PCS; CPT 45378; principal; 2020-09-21 07:30)
DX: K62.5 Hemorrhage of anus and rectum (principal); K57.30 Diverticulosis of large intestine without perforation or abscess without bleeding; K64.8 Other hemorrhoids; K64.4 Residual hemorrhoidal skin tags; K21.9 Gastro-esophageal reflux disease without esophagitis; J45.909 Unspecified asthma, uncomplicated; I10 Essential (primary) hypertension; E11.9 Type 2 diabetes mellitus without complications; Z79.84 Long term (current) use of oral hypoglycemic drugs; Z86.711 Personal history of pulmonary embolism; Z79.01 Long term (current) use of anticoagulants; Z79.51 Long term (current) use of inhaled steroids; Z79.899 Other long term (current) drug therapy; Z79.82 Long term (current) use of aspirin
CPT/HCPCS: 45378; 36415; 82947; 85610; J3010

== ENCOUNTER → 2020-09-25 13:45 | Outpatient (BNVA) | payer MEDICARE, MEDICAID, SELFPAY | PROVIDERS: PCP Internal Medicine; Visit Provider Internal Medicine | DX: I26.99 Other pulmonary embolism without acute cor pulmonale (principal); Z51.81 Encounter for therapeutic drug level monitoring; Z79.01 Long term (current) use of anticoagulants | CPT/HCPCS: 85610; 99211 ==

== ENCOUNTER → 2020-10-04 13:01 | Outpatient (BNVA) | payer MEDICARE, MEDICAID, SELFPAY | PROVIDERS: PCP Internal Medicine; Visit Provider Internal Medicine | DX: I26.99 Other pulmonary embolism without acute cor pulmonale (principal); Z51.81 Encounter for therapeutic drug level monitoring; Z79.01 Long term (current) use of anticoagulants | CPT/HCPCS: 85610; 99211 ==

== ENCOUNTER → 2020-10-11 13:22 | Outpatient (BNVA) | payer MEDICARE, MEDICAID, SELFPAY | PROVIDERS: PCP Internal Medicine; Visit Provider Internal Medicine | DX: I26.99 Other pulmonary embolism without acute cor pulmonale (principal); Z51.81 Encounter for therapeutic drug level monitoring; Z79.01 Long term (current) use of anticoagulants | CPT/HCPCS: 85610; 99211 ==

== ENCOUNTER → 2020-10-18 10:58 | Outpatient (BNVA) | payer MEDICARE, MEDICAID, SELFPAY | PROVIDERS: PCP Internal Medicine; Referring Provider Internal Medicine; Visit Provider Surgery | DX: K62.5 Hemorrhage of anus and rectum (principal); K57.90 Diverticulosis of intestine, part unspecified, without perforation or abscess without bleeding; K64.4 Residual hemorrhoidal skin tags; Z79.52 Long term (current) use of systemic steroids; Z79.02 Long term (current) use of antithrombotics/antiplatelets; Z79.84 Long term (current) use of oral hypoglycemic drugs; Z79.899 Other long term (current) drug therapy | CPT/HCPCS: 99212 ==

== ENCOUNTER → 2020-10-25 13:32 | Outpatient (BNVA) | payer MEDICARE, MEDICAID, SELFPAY | PROVIDERS: PCP Internal Medicine; Visit Provider Surgery Vascular Surgery | DX: I83.11 Varicose veins of right lower extremity with inflammation (principal) | CPT/HCPCS: 85610; 99202; 99211 ==

== ENCOUNTER 2020-10-31 15:12 | Outpatient (REF) | payer MEDICARE, MEDICAID, SELFPAY ==
--- NOTE | ~2020-10-31 | MM_ITS ---
EXAMINATION: MM DIAGNOSTIC DIGITAL BREAST TOMOSYNTHESIS, RIGHT CLINICAL INFORMATION: Short interval six-month follow-up probable benign coarse calcifications central and posterior outer right breast. Prior imaging demonstrated 0.8 cm nodule left areola margin in contact with deep dermis. Subsequent surgical excision performed 05/25/2020 (nipple adenoma; no malignancy identified). The lifetime risk of breast cancer based on the Tyrer-Cuzick Model is 7%. COMPARISON: Mammography: 05/02/2020 (diagnostic), 10/08/2017 (BI-RADS 2), targeted right breast ultrasound 05/02/2020. TECHNIQUE: Digital breast tomosynthesis is performed in both the craniocaudal and mediolateral oblique views along with computer-aided detection (CAD). Synthesized 2D images are generated from the tomosynthesis. Additional magnification views are obtained in the CC x2 and ML projections. FINDINGS: There are scattered areas of fibroglandular density (ACR BI-RADS breast composition Category b). Parenchymal pattern shows no interval mass or architectural abnormality. There are again numerous vascular calcifications. The grouped benign-appearing coarse calcifications central right breast mid depth and posterior 9:30 o'clock position are slightly increased in number between 2017 and 2020. Both areas are stable from prior diagnostic exam. These may represent areas of fibroadenomatous change. Calcifications will be reassessed again at time of annual bilateral mammography, due in 6 months. Results are provided to the patient at time of visit by the technologist. MM/MM tomosynthesis diagnostic RT IMPRESSION: Probable benign calcifications mid central and posterior outer right breast, stable from prior diagnostic exam 05/02/2020. ASSESSMENT: BI-RADS 3: Probably Benign RECOMMENDATION: Diagnostic mammography at time of annual bilateral mammography, due in 6 months. This patient's information was entered into a reminder system with a target due date for their next mammogram.
== END 2020-10-31 15:13 | disposition home or self-care (01) ==
LOC: HO.MAMMO 15:12
PROVIDERS: PCP Internal Medicine; Visit Provider Nurse Practitioner Family
DX: R92.1 Mammographic calcification found on diagnostic imaging of breast (principal); I26.99 Other pulmonary embolism without acute cor pulmonale; Z51.81 Encounter for therapeutic drug level monitoring; Z79.01 Long term (current) use of anticoagulants
CPT/HCPCS: 77061; 77065; 85610; 99211

== ENCOUNTER → 2020-11-06 15:05 | Outpatient (BNVA) | payer MEDICARE, MEDICAID, SELFPAY | PROVIDERS: PCP Internal Medicine; Visit Provider Internal Medicine | DX: I26.99 Other pulmonary embolism without acute cor pulmonale (principal); Z51.81 Encounter for therapeutic drug level monitoring; Z79.01 Long term (current) use of anticoagulants | CPT/HCPCS: 85610; 99211 ==

== ENCOUNTER 2020-11-15 10:04 | Outpatient (REF) | payer MEDICARE, MEDICAID, SELFPAY ==
--- NOTE | ~2020-11-15 | US_ITS ---
EXAMINATION: BILATERAL LOWER EXTREMITY VENOUS ULTRASOUND (Reflux Exam) CLINICAL INDICATION: This is a 64-year-old female with varicose veins. Venous insufficiency. COMPARISON: None. TECHNIQUE: Color flow triplex imaging and compression Doppler was performed to evaluate both the deep and the superficial systems bilaterally. To evaluate the superficial system, the examination was performed in the upright position. Color-flow Doppler ultrasound and compression ultrasound were utilized. In addition, maneuvers were utilized to demonstrate reflux. FINDINGS: 1. DEEP VENOUS ULTRASOUND OF THE RIGHT LOWER EXTREMITY: Common Femoral Vein: Compressible, normal respiratory variation and augmented flow. Femoral vein: Compressible, normal color flow and augmentation. Popliteal Vein: There is reflux in the popliteal vein with the reflux time of 3108 ms. Deep Reflux: There is evidence of reflux in the deep system in the popliteal vein. . There is no evidence of a Quinteros's cyst. 2. SUPERFICIAL ULTRASOUND WITH DOPPLER OF RIGHT LOWER EXTREMITY GREAT SAPHENOUS VEIN: Saphenofemoral junction: 0.8 cm. There is no reflux. Mid thigh: 0.3 cm. There is no reflux. Above knee: 0.4 cm. There is no reflux. Below knee: 0.3 cm. There is no reflux. Mid calf: 0.2 cm. The reflux time is 1160 ms. Ankle: 0.2 cm. There is no reflux. GSV REFLUX: No evidence of reflux at the junction. DUPLICATED GREAT SAPHENOUS VEIN: There is a duplicated lateral great saphenous vein measuring 0.5 cm with reflux at the junction of 3180 ms. SMALL SAPHENOUS VEIN: Upper: 0.3 cm. There is no reflux at the junction. Lower: 0.2 cm SSV REFLUX: There is no evidence of reflux at the junction. VEIN OF GIACOMINI: None Imaged. PERFORATORS: There are 0.2 cm proximal thigh and mid calf perforators. There is reflux in the proximal thigh jamb cutter of 2280 ms. VARICOSITIES: There are 0.2 cm anterior mid calf varicose veins with a reflux time of 1180 ms. 3. DEEP VENOUS ULTRASOUND OF THE LEFT LOWER EXTREMITY: Common Femoral Vein: Compressible, normal respiratory variation and augmented flow. Femoral vein: Compressible, normal color flow and augmentation. Popliteal Vein: There is reflux in the popliteal vein with the reflux time 1040 ms. Deep Reflux: There is is evidence of reflux in the deep system in the popliteal vein. There is no evidence of a Quinteros's cyst. 4. SUPERFICIAL ULTRASOUND WITH DOPPLER OF LEFT LOWER EXTREMITY GREAT SAPHENOUS VEIN: Saphenofemoral junction: 0.6 cm. There is no reflux at the junction. Mid thigh: 0.4 cm. There is no reflux. Above knee: 0.2 cm Below knee: 0.2 cm Mid calf: 0.2 cm. There is a reflux time of 3112 ms Ankle: 0.2 cm. There is no reflux. GSV REFLUX: There is no reflux at the junction. There is isolated reflux at the knee and the mid calf, respectively. DUPLICATED GREAT SAPHENOUS VEIN: There is a 0.3 cm duplicated right lateral great saphenous vein without reflux. SMALL SAPHENOUS VEIN: Upper: 0.2 cm Lower: 0.2 cm SSV REFLUX: No evidence of reflux. VEIN OF GIACOMINI: None Imaged. PERFORATORS: None Imaged VARICOSITIES: There is a 0.2 cm mid thigh varicose vein with reflux time of 2980 ms. US/US venous duplex LE BI IMPRESSION: 1. There are patent bilateral great saphenous veins without evidence of reflux at the saphenofemoral junction. 2. There are patent bilateral small saphenous veins without evidence of reflux at the junction. 3. There is a patent duplicated right lateral great saphenous vein with reflux at the saphenofemoral junction. 4. There are bilateral 0.2 cm varicose veins as noted with reflux.
== END 2020-11-15 10:05 | disposition home or self-care (01) ==
LOC: HO.US 10:04
PROVIDERS: Visit Provider Surgery Vascular Surgery
DX: I83.11 Varicose veins of right lower extremity with inflammation (principal); I26.99 Other pulmonary embolism without acute cor pulmonale; Z51.81 Encounter for therapeutic drug level monitoring; Z79.01 Long term (current) use of anticoagulants
CPT/HCPCS: 85610; 93970; 99211

== ENCOUNTER → 2020-11-29 13:02 | Outpatient (BNVA) | payer MEDICARE, MEDICAID, SELFPAY | PROVIDERS: PCP Internal Medicine; Visit Provider Surgery Vascular Surgery | DX: I83.813 Varicose veins of bilateral lower extremities with pain (principal) | CPT/HCPCS: 99212 ==

== ENCOUNTER 2020-12-21 12:25 | Outpatient (REF) | payer MEDICARE, MEDICAID, SELFPAY ==
[2020-12-21 09:23] LABS: MANUAL DIFF FLAG NO
[2020-12-21 09:58] LABS: Basophils Percent Auto 0.2 % (0-2); Eosinophils Absolute Auto 0.1 X10*3/uL (0.0-0.4); Eosinophils Percent Auto 2.6 % (0-4); Hematocrit 26.7 % (37-47); Hemoglobin 9.2 g/dl (12.0-16.0); Imm Gran Abs Auto 0.01 X10*3/uL (0.00-0.03); Imm Gran Pct Auto 0.2 % (0.0-0.4); Lymphocytes Absolute Auto 2.4 X10*3/uL (1.2-4.9); Lymphocytes Percent Auto 51.7 % (20-40); Mean Corpuscular HGB Conc 34.5 g/dl (31.0-35.0); Mean Corpuscular Hemoglobin 35.1 pg (27.0-33.0); Mean Corpuscular Volume 101.9 fL (80-98); Mean Platelet Volume 10.4 fL (9.4-12.3); Monocytes Absolute Auto 0.3 X10*3/uL (0.1-1.2); Monocytes Percent Auto 7.2 % (2-11); Neutrophils Absolute Auto 1.8 X10*3/uL (2.0-8.3); Neutrophils Percent Auto 38.1 % (45-73); Platelet Count 331 X10*3/uL (160-400); Red Blood Count 2.62 X10*6/uL (4.20-5.50); Red Cell Distribution Width 15.9 % (11.0-16.0); White Blood Count 4.6 X10*3/uL (4.8-10.8)
[2020-12-21 10:04] LABS: Appearance Urine CLEAR; Color Urine YELLOW; Glucose Urine UA 250 MG/DL (NEG); Leukocyte Esterase Urine NEG (NEG); Nitrite Urine NEG (NEG); Specific Gravity - Urine >= 1.030 (1.005-1.025); UACC Culture Trigger NO; Urine Blood TRACE (NEG); Urine Ketones NEG (NEG); Urine Protein 1+ MG/DL (NEG-TRACE)
[2020-12-21 10:15] LABS: Mucus Urine 3+ /LPF; RBC Urine 0-2 /HPF (0); Squamous Epithelial Cell Urine TRACE /LPF
[2020-12-21 10:27] LABS: Estimated Average Glucose 240 mg/dL
[2020-12-21 10:55] LABS: Erythrocyte Sedimentation Rate 63 MM/HR (0-20)
[2020-12-21 10:58] LABS: TSH reflex Free T4 1.16 uIU/mL (0.32-4.0); Vitamin D 25-OH Total 17.8 ng/mL (>30)
[2020-12-21 11:04] LABS: Creatinine Urine 238.05 mg/dL; Microalbum/Creatinine Ratio Ur 48.7 ug/mg cr
[2020-12-21 11:10] LABS: Folate 5.1 ng/mL (> or = 4.0); Vitamin B12 < 146 pg/mL (200-900)
[2020-12-21 11:11] LABS: Alanine Aminotransferase 11 U/L (0-31); Albumin Level 3.7 g/dL (3.5-5.0); Alkaline Phosphatase 99 U/L (39-117); Anion Gap 11 (12-20); Aspartate Amino Transferase 12 U/L (5-31); Bilirubin Total 0.9 mg/dL (0.0-1.0); Blood Urea Nitrogen 12 mg/dL (9-16); Calcium 8.6 mg/dL (8.4-10.2); Carbon Dioxide 30 mmol/L (22-29); Chloride 101 mmol/L (96-108); Cholesterol 279 mg/dL; Estimated Glomerular Filt Rate > 60; Glucose Fasting 255 mg/dL (60-99); HDL Cholesterol 73 mg/dL; LDL Cholesterol Calculated 182 mg/dl; Potassium 3.3 mmol/L (3.3-5.1); Sodium 139 mmol/L (135-145); Total Protein 6.2 g/dL (6.5-8.0); Triglycerides 120 mg/dL
== END 2020-12-21 12:26 | disposition home or self-care (01) ==
LOC: HO.LAB 12:25
PROVIDERS: Internal Medicine; PCP Internal Medicine; Visit Provider Internal Medicine
DX: I10 Essential (primary) hypertension (principal); K21.9 Gastro-esophageal reflux disease without esophagitis; E53.8 Deficiency of other specified B group vitamins; M79.7 Fibromyalgia; E11.9 Type 2 diabetes mellitus without complications; E78.00 Pure hypercholesterolemia, unspecified; R60.0 Localized edema; E66.9 Obesity, unspecified; E55.9 Vitamin D deficiency, unspecified
CPT/HCPCS: 36415; 80053; 80061; 81001; 82043; 82306; 82607; 82746; 83036; 84443; 85025; 85652

== ENCOUNTER → 2021-01-10 13:46 | Outpatient (BNVA) | payer MEDICARE, MEDICAID, SELFPAY | PROVIDERS: PCP Internal Medicine; Visit Provider Internal Medicine | DX: I26.99 Other pulmonary embolism without acute cor pulmonale (principal); Z51.81 Encounter for therapeutic drug level monitoring; Z79.01 Long term (current) use of anticoagulants | CPT/HCPCS: 85610; 99211 ==

== ENCOUNTER → 2021-01-16 14:01 | Outpatient (BNVA) | payer MEDICARE, MEDICAID, SELFPAY | PROVIDERS: PCP Internal Medicine; Visit Provider Internal Medicine | DX: I26.99 Other pulmonary embolism without acute cor pulmonale (principal); Z51.81 Encounter for therapeutic drug level monitoring; Z79.01 Long term (current) use of anticoagulants | CPT/HCPCS: 85610; 99211 ==

== ENCOUNTER → 2021-01-23 14:01 | Outpatient (BNVA) | payer MEDICARE, MEDICAID, SELFPAY | PROVIDERS: PCP Internal Medicine; Visit Provider Internal Medicine | DX: I26.99 Other pulmonary embolism without acute cor pulmonale (principal); Z51.81 Encounter for therapeutic drug level monitoring; Z79.01 Long term (current) use of anticoagulants | CPT/HCPCS: 85610 ==

== ENCOUNTER → 2021-01-30 10:36 | Outpatient (BNVA) | payer MEDICARE, MEDICAID, SELFPAY | PROVIDERS: PCP Internal Medicine; Visit Provider Internal Medicine | DX: Z86.711 Personal history of pulmonary embolism (principal); Z51.81 Encounter for therapeutic drug level monitoring; Z79.01 Long term (current) use of anticoagulants | CPT/HCPCS: 85610; 99211 ==

== ENCOUNTER 2021-02-06 12:06 | Outpatient (REF) | payer MEDICARE, MEDICAID, SELFPAY ==
[2021-02-06 15:17] LABS: Prothrombin Time 76.1 SEC (9.9-13.0)
[2021-02-06 15:21] LABS: INTERNATIONAL NORM RATIO 6.4 (0.9-1.1)
== END 2021-02-06 12:07 | disposition home or self-care (01) ==
LOC: HO.LAB 12:06
PROVIDERS: Internal Medicine; PCP Internal Medicine; Visit Provider Internal Medicine
DX: I26.99 Other pulmonary embolism without acute cor pulmonale (principal); E11.65 Type 2 diabetes mellitus with hyperglycemia; E11.40 Type 2 diabetes mellitus with diabetic neuropathy, unspecified; E11.319 Type 2 diabetes mellitus with unspecified diabetic retinopathy without macular edema; E11.21 Type 2 diabetes mellitus with diabetic nephropathy; I10 Essential (primary) hypertension; E78.5 Hyperlipidemia, unspecified; E55.9 Vitamin D deficiency, unspecified; Z51.81 Encounter for therapeutic drug level monitoring; Z79.01 Long term (current) use of anticoagulants; Z79.4 Long term (current) use of insulin
CPT/HCPCS: 36415; 82947; 85610; 96372; 99212; J1815

== ENCOUNTER → 2021-02-19 15:48 | Outpatient (BNVA) | payer MEDICARE, MEDICAID, SELFPAY | PROVIDERS: PCP Internal Medicine; Visit Provider Internal Medicine | DX: Z86.711 Personal history of pulmonary embolism (principal); Z51.81 Encounter for therapeutic drug level monitoring; Z79.01 Long term (current) use of anticoagulants | CPT/HCPCS: 85610; 99211 ==

== ENCOUNTER → 2021-02-25 10:36 | Outpatient (BNVA) | payer MEDICARE, MEDICAID, SELFPAY | PROVIDERS: PCP Internal Medicine; Visit Provider Internal Medicine | DX: I26.99 Other pulmonary embolism without acute cor pulmonale (principal); Z51.81 Encounter for therapeutic drug level monitoring; Z79.01 Long term (current) use of anticoagulants | CPT/HCPCS: 85610; 99211 ==

== ENCOUNTER → 2021-03-06 14:30 | Outpatient (BNV) | payer MEDICARE, OTHER, MEDICAID, SELFPAY | PROVIDERS: PCP Internal Medicine; Visit Provider Internal Medicine Medical Oncology | DX: Z86.711 Personal history of pulmonary embolism (principal) | CPT/HCPCS: 99203; 99212; 99213; 99214 ==

== ENCOUNTER 2021-07-24 12:49 | Outpatient (REF) | payer OTHER, MEDICAID, SELFPAY ==
--- NOTE | ~2021-07-24 | MM_ITS ---
EXAMINATION: MM DIAGNOSTIC DIGITAL BREAST TOMOSYNTHESIS, BILATERAL CLINICAL INFORMATION: Due for yearly. Also follow-up probable benign calcifications central and posterior upper outer right breast, possibly fibroadenomatous change. History surgical excision lesion near right nipple 05/25/2020 (nipple adenoma; no malignancy identified). The lifetime risk of breast cancer based on the Tyrer-Cuzick Model is 7%. COMPARISON: Mammography: 10/31/2020, 05/02/2020, 10/08/2017 TECHNIQUE: Digital breast tomosynthesis is performed in both the craniocaudal and mediolateral oblique views along with computer-aided detection (CAD). Synthesized 2D images are generated from the tomosynthesis. Additional magnification right CC and magnification right ML views are provided. FINDINGS: There are scattered areas of fibroglandular density (ACR BI-RADS breast composition Category b). Parenchymal pattern is similar to prior studies and there is no interval mass or architectural abnormality. There is right nipple retraction post surgery. Bilateral scattered punctate and bilateral vascular calcifications are again noted. The relatively coarse calcifications for follow-up mid central right breast and posterior 9:00 position are similar to prior diagnostic studies. They will be reassessed again in 12 months to conclude long-term surveillance. Results are provided to the patient at time of visit by the technologist. MM/MM tomosynthesis diagnostic BI IMPRESSION: Right: -Right breast calcifications for follow-up are stable, probable benign. -Mild right nipple retraction status post surgery (nipple adenoma). -No significant changes from prior study. Left: -No mammographic evidence of malignancy. ASSESSMENT: BI-RADS 3: Probably Benign RECOMMENDATION: Diagnostic mammography at time of next annual exam, due in 12 months. This patient's information was entered into a reminder system with a target due date for their next mammogram.
== END 2021-07-24 12:50 | disposition home or self-care (01) ==
LOC: HO.MAMMO 12:49
PROVIDERS: Visit Provider Internal Medicine
DX: R92.1 Mammographic calcification found on diagnostic imaging of breast (principal)
CPT/HCPCS: 77062; 77066

== ENCOUNTER → 2021-08-14 13:55 | Outpatient (BNVA) | payer OTHER, MEDICAID, SELFPAY | PROVIDERS: PCP Internal Medicine; Referring Provider Internal Medicine; Visit Provider Internal Medicine | DX: R07.2 Precordial pain (principal); R06.02 Shortness of breath; I10 Essential (primary) hypertension | CPT/HCPCS: 93005; 99202 ==

== ENCOUNTER 2021-09-18 15:26 | Outpatient (REF) | payer OTHER, SELFPAY ==
--- NOTE | ~2021-09-18 | XR_ITS ---
EXAMINATION: XR HAND, LEFT CLINICAL INFORMATION: Pain. COMPARISON: None TECHNIQUE: PA, lateral, and oblique views of the left hand. FINDINGS: There is no evidence of acute fracture or dislocation of the left hand. An old healed fracture about the distal 2nd metacarpal is seen. No radiopaque foreign bodies. Joint spaces are generally maintained without erosive change. XR/XR hand LT min 3V IMPRESSION: No acute fracture or dislocation of the left hand.
== END 2021-09-18 15:27 | disposition home or self-care (01) ==
LOC: HO.XRAY 15:26
PROVIDERS: PCP Internal Medicine; Visit Provider Internal Medicine
DX: M79.642 Pain in left hand (principal); M79.645 Pain in left finger(s)
CPT/HCPCS: 73130

== ENCOUNTER → 2021-12-11 07:59 | Outpatient (REF) | payer OTHER, SELFPAY ==
--- NOTE | ~2021-12-11 | NM_ITS ---
Lexiscan Myocardial perfusion study Indication: Chest pain, shortness of breath, assess for coronary disease and ischemia Technique: The patient was brought in for a Lexiscan perfusion study on 12/11/2021 and was injected 0.4 mg of Lexiscan intravenously. Within a minute of this injection 30 mCi of sestamibi was given intravenously. Images were obtained using the SPECT gamma camera interlaced with the gating device. Images were obtained in supine position. Resting perfusion study was performed on 12/13/2021. Patient was administered 30 mCi of sestamibi intravenously at rest. Images were then obtained in supine position. Total DLP 157mGy-cm. Images were processed with the software and compared side to side in short axis, horizontal long axis and vertical long axis views. Findings: Raw acquisition reviewed. Arms by the patient's side. The stress perfusion study showed mildly diminished tracer uptake in the distal inferolateral wall. There is improvement with CT attenuation correction suggestive of diaphragmatic attenuation artifact. However, in the attenuation corrected images, there is reduced uptake in the distal anterior wall and adjacent septum and apex, more likely from technical issues then true findings. The gated study shows normal LV systolic function with calculated LVEF of 57%. LV cavity is normal in size. The gated study shows normal wall thickening and contraction of segments. Resting study shows no significant perfusion abnormality. Gating at rest reveals normal wall motion with ejection fraction at 55%. The findings are consistent with mild reversible distal inferolateral reversible defect, suspected to be from diaphragmatic attenuation artifact. NM/NM cardiolite stress test Impression: 1. Myocardial perfusion imaging study shows likely normal myocardial perfusion. No definitive findings of any ischemia or infarction. 2. Gated LVEF is 57% during stress and 55% during rest. 3. Transient ischemic dilatation not present. EKG component of the test reported separately.
--- NOTE | 2021-12-11 08:02 | CA_ITS ---
Acquisition Time: 2021-12-11 08:23:25 Total Exercise Time: 00:02:00 Test Indications: Chest Pain HTN Medications: SEE H Protocol: LEXISCAN Max HR: 109 BPM 70% of Pred: 154 BPM Max BP: 156/078 mmHG Max Work Load: 1.0 METS Pharmacological stress test with Lexsican injection, while sitting and kicking her legs, without anginal symptoms, without arrythmia, with normotensive response to injection, with nondiagnostic EKG for ischemia. In recovery she reported feeling lightheaded and was treated with Aminophylline 75mg IVP to reverse Lexiscan with resolution of symptom. Nuclear images pending. Test reviewed with Dr Isaacs. Referred By: Shilo Isaacs Overread By: ELAYNE PEREZ
== END ==
LOC: HO.CARD 07:59
PROVIDERS: PCP Internal Medicine; Visit Provider Internal Medicine
DX: R07.2 Precordial pain (principal)
CPT/HCPCS: 78452; 93017; A9500; J0280; J2785

== ENCOUNTER → 2021-12-19 10:27 | Outpatient (REF) | payer OTHER, SELFPAY ==
--- NOTE | 2021-12-19 10:31 | CA_ITS ---
Transthoracic Echocardiogram Patient (Last, First, Middle): Lanny Valderrama, Gender: Female Date of : 1955 Age: 66 Procedure Date: 12/19/2021 Procedure Type: Transthoracic Echocardiogram Location: OP Height: 170.18 cm Weight: 95.71 kg BSA: 2.07 m2 Heart Rate: bpm BP: 182 / 86 mmHg Manufacturing Recruiter: PHUONG Referring MD: Shilo Isaacs MD Drop Wire Stringer: Afshin Garcia MD Symptoms: I25.10 - Atherosclerotic heart disease of [place] coronary... Study Quality: Adequate ECG Rhythm: Sinus Conclusions: - 1. Normal LV systolic function with mild LVH with impaired relaxation filling pattern 2. Normal cardiac valvular Doppler 3. No gross pericardial effusion Findings Left Ventricle Normal left ventricular size and systolic function. There is mildly increased left ventricular wall thickness. The visually estimated ejection fraction is between 60-65%. Spectral Doppler is indicative of an impaired relaxation filling pattern. E/E prime ratio is between 8 and 15 consistent with indeterminate filling pressures. Right Ventricle Normal right ventricular cavity size. There is normal right ventricular systolic function. There is mildly increased right ventricular wall thickness. Atria The left atrium is likely dilated. Interatrial shunt cannot be excluded. The right atrium is normal in size. Aortic Valve There is mild calcification of the aortic valve. There is no aortic valve stenosis. There is no aortic valve regurgitation. Mitral Valve There is mild anterior and posterior mitral leaflet thickening. There is mild mitral annular calcification. There is trace mitral valve regurgitation. There is no mitral valve stenosis. Pulmonic Valve The pulmonic valve was not well visualized. Tricuspid Valve Likely normal tricuspid valve structure and function. Tricuspid regurgitation envelope is inadequate for calculation of right ventricular systolic pressure. Great Vessels All visible segments of the aorta are normal in size. The pulmonary artery was not well visualized. Venous The inferior vena cava is normal in size and collapses greater than 50% with inspiration. Pericardium/Pleural There is no evidence of pericardial effusion. Prior Study Comparison No significant change compared to prior study dated: 11/08/2013. Measurements 2D Linear Measurements IVSd: 1.42 0.6-0.9/0.6-1.0 cm LVIDd: 3.60 3.9-5.3/4.2-5.9 cm LVIDd Index: 1.74 2.4-3.2/2.2-3.1 cm/m2 LVIDs: 2.63 2.0-3.6 cm LVPWd: 1.29 0.7-1.1 cm LA Diam: 3.10 2.7-3.8/3.0-4.0 cm LAIDs Index: 1.50 1.5-2.3 cm/m2 LV Mass: 212.77 67-162/88-224 g LV Mass Index: 102.79 43-95/49-115 g/m2 LVOT Diam: 2.20 3.0+(-)1.3 cm 2D Systolic Function EF 4C: 61.30 >55% EF 2C: 64.70 >55% EF BiP: 65.10 >55% Mitral Valve MV Pk E: 0.94 MV PK A: 1.24 MV Decel Time: 267.00 E/A: 0.80 E'Lateral: 5.00 E'Medial: 4.90 E/E' Med: 19.20 E/E' Lat: 18.90 PHT: 78.00 MVA PHT: 2.82 Decel [place]: 3.53 Aortic Valve AoV Pk Darinel: 1.78 AoV Mn Darinel: 1.20 AoV VTI: 0.38 AoV Pk Grad: 13.00 Aov Mn Grad: 7.00 SHU Cont.VTI: 2.56 LVOT LVOT Pk Darinel: 1.06 LVOT Mn Darinel: 0.75 LVOT VTI: 0.25 LVOT Pk Grad: 4.00 LVOT Mn Grad: 3.00 LVOT Diam: 2.20 LVOT Area: 3.80 Diastolic Function MV Pk E: 0.94 MV Pk A: 1.24 E/A: 0.80 E'Medial: 4.90 E/E' Med: 19.20 E' Laterial: 5.00 E/E' Lat: 18.90 Right Ventricle TAPSE (mm): 21.20 TVS' Darinel: 12.10 Tricuspid Valve RA Press: 3.00 Great Vessels Aorta Sinus of Valsalva: 3.77 2.0-3.[address] [place]: 2.75 1.7-3.4 cm Ao Asc: 3.40 2.1-3.4 cm Updated in Other Vendor System with Status of Final Afshin Garcia MD electronically signed on 12/20/2021 12:23:39 PM with status of Final
== END ==
LOC: HO.CARD 10:27
PROVIDERS: PCP Internal Medicine; Visit Provider Internal Medicine
DX: R07.2 Precordial pain (principal); I25.10 Atherosclerotic heart disease of native coronary artery without angina pectoris
CPT/HCPCS: 93306

== ENCOUNTER 2021-12-25 10:19 | Outpatient (REF) | payer OTHER, SELFPAY ==
[2021-12-25 10:56] LABS: MANUAL DIFF FLAG NO
[2021-12-25 11:38] LABS: Appearance Urine Clear; Color Urine Yellow; Glucose Urine UA Negative (Negative); Leukocyte Esterase Urine Trace (Negative); Nitrite Urine Negative (Negative); PH 5.5 (5.0-9.0); UMIC TRIGGER UACC YES; Urine Blood Negative (Negative); Urine Ketones Negative (Negative); Urine Protein Trace mg/dL (Neg-Trace)
[2021-12-25 11:41] LABS: Basophils Percent Auto 0.5 % (0-2); Eosinophils Absolute Auto 0.1 X10*3/uL (0.0-0.4); Eosinophils Percent Auto 1.5 % (0-4); Hematocrit 34.4 % (37.0-47.0); Hemoglobin 10.8 g/dl (12.0-16.0); Imm Gran Abs Auto 0.01 X10*3/uL (0.00-0.03); Imm Gran Pct Auto 0.2 % (0.0-0.4); Lymphocytes Absolute Auto 2.5 X10*3/uL (1.2-4.9); Lymphocytes Percent Auto 39.9 % (20-40); Mean Corpuscular HGB Conc 31.4 g/dl (31.0-35.0); Mean Corpuscular Hemoglobin 26.3 pg (27.0-33.0); Mean Corpuscular Volume 83.9 fL (80.0-98.0); Mean Platelet Volume 11.1 fL (9.4-12.3); Monocytes Absolute Auto 0.4 X10*3/uL (0.1-1.2); Monocytes Percent Auto 7.2 % (2-11); Neutrophils Absolute Auto 3.1 x10*3/uL (2.0-8.3); Neutrophils Percent Auto 50.7 % (45-73); Platelet Count 384 X10*3/uL (160-400); Red Cell Distribution Width 16.1 % (11.0-16.0); White Blood Count 6.1 X10*3/uL (4.8-10.8)
[2021-12-25 11:43] LABS: Bacteria Urine None Seen (None Seen); Hyaline Casts Urine 0-2 /LPF (0-2); RBC Urine 0-2 /HPF (0-2); Squamous Epithelial Cell Urine 0-2 /HPF (0-2); WBC Urine 0-5 /HPF (0-5)
[2021-12-25 11:48] LABS: Estimated Average Glucose 163 mg/dL; Hemoglobin A1c % 7.3 %
[2021-12-25 11:59] LABS: Creatinine Urine 138.44 mg/dL; Microalbum/Creatinine Ratio Ur 15.8 ug/mg cr
[2021-12-25 12:06] LABS: Alanine Aminotransferase 9 U/L (0-31); Albumin Level 4.3 g/dL (3.5-5.0); Alkaline Phosphatase 90 U/L (39-117); Anion Gap 16 (12-20); Aspartate Amino Transferase 13 U/L (5-31); Bilirubin Total 0.8 mg/dL (0.0-1.0); Blood Urea Nitrogen 14 mg/dL (9-16); Calcium 9.1 mg/dL (8.4-10.2); Carbon Dioxide 27 mmol/L (22-29); Chloride 104 mmol/L (96-108); Cholesterol 293 mg/dL; Estimated Glomerular Filt Rate > 60; Glucose Fasting 148 mg/dL (60-99); HDL Cholesterol 79 mg/dL; LDL Cholesterol Calculated 194 mg/dl; Potassium 4.1 mmol/L (3.3-5.1); Sodium 143 mmol/L (135-145); Total Protein 7.1 g/dL (6.5-8.0); Triglycerides 103 mg/dL
[2021-12-25 12:20] LABS: TSH reflex Free T4 0.55 uIU/mL (0.32-4.0); Vitamin D 25-OH Total 13.8 ng/mL (>30)
[2021-12-25 12:51] LABS: Folate 5.4 ng/mL (> or = 4.0); Vitamin B12 165 pg/mL (200-900)
== END 2021-12-25 10:20 | disposition home or self-care (01) ==
LOC: HO.LAB 10:19
PROVIDERS: PCP Internal Medicine; Visit Provider Internal Medicine
DX: E53.8 Deficiency of other specified B group vitamins (principal); E78.00 Pure hypercholesterolemia, unspecified; E11.9 Type 2 diabetes mellitus without complications; E55.9 Vitamin D deficiency, unspecified; I10 Essential (primary) hypertension
CPT/HCPCS: 36415; 80053; 80061; 81001; 82043; 82306; 82607; 82746; 83036; 84443; 85025

== ENCOUNTER 2022-05-15 15:54 | Outpatient (REF) | payer OTHER, SELFPAY | END 2022-05-15 15:55 | disposition home or self-care (01) | LOC: HO.LAB 15:54 | PROVIDERS: Visit Provider Nurse Practitioner Family | DX: R35.0 Frequency of micturition (principal) | CPT/HCPCS: 87086 ==

== ENCOUNTER 2022-05-21 16:28 | Emergency (ER) | payer OTHER, SELFPAY ==
[2022-05-21 16:48] VITALS: BP 128/70; PULSE 110; RESP 20; TEMP 36.7; O2SAT 97; BMI 28.1
--- NOTE | 2022-05-21 16:57 | ED.GENADULT ---
HPI - General Adult General Chief complaint: General Medical <Yair Kennedy - Last Filed: 05/21/22 16:59> Stated complaint: sugar level is 800 <Yair Kennedy - Last Filed: 05/21/22 16:59> Time Seen by Provider: 05/21/22 21:32 <Yair Kennedy - Last Filed: 05/21/22 16:59> Source: patient and family <Colin Mota MD - Last Filed: 05/22/22 06:36> Mode of arrival: ambulatory <Colin Mota MD - Last Filed: 05/22/22 06:36> Limitations: no limitations <Colin Mota MD - Last Filed: 05/22/22 06:36> History of Present Illness HPI narrative: Patient with History of T2DM on Trulicity 0.75 once a week metformin 1000 twice daily and Lantus 5 units q.h.s. with HbA1c 7.3, osteoarthritis, history of PE in 2003 received cortisone shots in both knees 04/06 since and noted blood sugar is elevated patient missed her Trulicity last week but took it 4 days ago patient has been urinating , having headache body aches and feeling weak , having the involuntary movements of the right arm blood sugar checked was more than 600 hence patient came to the ER, no nausea, no abdominal pain no vomiting labs done prior to my evaluation showed blood glucose of 815 negative acetone <Colin Mota MD - Last Filed: 05/22/22 06:36> Related Data Home medications: Home Medications Medication Instructions Recorded Confirmed amlodipine 10 mg tablet 10 mg PO DAILY 01/24/20 05/15/22 ascorbate calcium (vitamin C) 500 500 mg PO DAILY 01/24/20 05/15/22 mg tablet aspirin 81 mg tablet,delayed 81 mg PO DAILY 01/24/20 05/15/22 release (Adult Aspirin Regimen) budesonide-formoterol HFA 160 2 puff inhalation BID 01/24/20 05/15/22 mcg-4.5 mcg/actuation aerosol inhaler (Symbicort) cyanocobalamin (vitamin B-12) 1,000 mcg PO DAILY 01/24/20 05/15/22 1,000 mcg capsule desloratadine 5 mg tablet 5 mg PO DAILY 01/24/20 05/15/22 (Clarinex) ezetimibe 10 mg tablet (Zetia) 10 mg PO DAILY 01/24/20 05/15/22 hydrochlorothiazide 25 mg tablet 25 mg PO DAILY 01/24/20 05/15/22 omeprazole 20 mg capsule,delayed 20 mg PO DAILY 01/24/20 05/15/22 release diclofenac sodium 1 % topical gel 1 ea topical DAILY 10/31/20 05/15/22 Previous Rx's Medication Instructions Recorded cyclobenzaprine 10 mg tablet 10 mg PO BEDTIME PRN muscle spasm 03/06/20 30 days #30 tabs fwgvqvmseu-cwldqezcbywwc-xtdvvexh 1 cap PO BID-TID PRN for migraine 04/03/20 50 mg-325 mg-40 mg capsule #60 caps compression stockings #2 ea 06/18/20 blood-glucose meter (FreeStyle #1 ea 08/16/20 [place] Lite kit) cholecalciferol (vitamin D3) 50 50 mcg PO DAILY 30 days #30 caps 08/16/20 mcg (2,000 unit) capsule LIGHTWEIGHT WHEELCHAIR #1 ea 01/30/21 dulaglutide 0.75 mg/0.5 mL 0.75 mg (0.5 mL) subcut QWEEK 30 02/06/21 subcutaneous pen injector days #2.5 mL (Trulicity) insulin glargine 100 unit/mL (3 5 unit (0.05 mL) subcut QPM 30 02/06/21 mL) subcutaneous pen (Lantus days #1.5 mL Solostar U-100 Insulin) pen needle, diabetic 32 gauge x #50 ea 02/06/2103/26 (BD Ultra-Fine Micro Pen Needle) metformin 500 mg tablet,extended 1,000 mg PO BID 90 days #360 tabs 02/24/21 release 24 hr apixaban 2.5 mg tablet (Eliquis) 2.5 mg PO BID #60 tabs 02/25/21 folic acid 1 mg tablet 1 mg PO DAILY #90 tabs 02/25/21 losartan 100 mg tablet 100 mg PO DAILY #90 tabs 03/05/21 ondansetron 8 mg disintegrating 8 mg PO Q8H #30 tabs 04/10/21 tablet blood sugar diagnostic (FreeStyle #100 ea 04/12/21 Lite Strips) lancets 28 gauge (FreeStyle #100 ea 04/12/21 Lancets) blood sugar diagnostic (OneTouch #100 ea 04/18/21 Ultra Test strips) blood-glucose meter (OneTouch #1 ea 04/18/21 Ultra2 Meter kit) lancets 33 gauge (OneTouch Delica #100 ea 04/18/21 Lancets) Ventolin HFA 90 mcg/actuation 2 puff inhalation Q4-6H PRN 07/16/21 aerosol inhaler (albuterol sulfate) Bronchospasm #18 grams albuterol sulfate 2.5 mg/3 mL 2.5 mg (3 mL) continuous 07/16/21 (0.083 %) solution for nebulization nebulization Q4-6H PRN Bronchospasm #180 mL fluticasone propionate 50 2 spray intranasal DAILY #48 grams 07/26/21 mcg/actuation nasal spray,suspension carvedilol 25 mg tablet (Coreg) 25 mg PO BID 90 days #180 tabs 08/14/21 rosuvastatin 40 mg tablet 40 mg PO DAILY 90 days #90 tabs 01/01/22 celecoxib 100 mg capsule (Celebrex) 100 mg PO BID PRN pain 30 days #60 02/10/22 caps gabapentin 400 mg capsule 400 mg PO TID 30 days #90 caps 02/21/22 tramadol 50 mg tablet 50 mg PO TID PRN pain 30 days #90 04/29/22 tabs hydrocortisone acetate 25 mg 25 mg OK BID #24 ea 05/15/22 rectal suppository (Anusol-HC) nitrofurantoin 100 mg PO Q12H 7 days #14 caps 05/15/22 monohydrate/macrocrystals 100 mg capsule (Macrobid) insulin glargine 100 unit/mL (3 20 unit (0.2 mL) subcut QPM #3 05/22/22 mL) subcutaneous pen (Lantus syringe Solostar U-100 Insulin) insulin lispro 100 unit/mL 1 sliding scale dose subcut 05/22/22 subcutaneous pen (Humalog KwikPen USEASDIRECTD #15 mL (U-100) Insulin) lorazepam 1 mg tablet (Ativan) 1 mg PO DAILY PRN anxiety #10 tabs 05/22/22 <Yair Kennedy - Last Filed: 05/21/22 16:59> Allergies/adverse reactions: Allergies Allergy/AdvReac Type Severity Reaction Status Date / Time Penicillins [PENICILLINS] Allergy Severe SOB, rash, Verified 05/21/22 23:00 itching codeine [CODEINE] Allergy Intermediate RASH SOB Verified 05/21/22 23:00 oxycodone [From PERCOCET] Allergy Intermediate RASH SOB Verified 05/21/22 23:00 kiwi [KIWI] Allergy Mild ITCHY IF Verified 05/21/22 23:00 TOUCHES pineapple [PINEAPPLE] Allergy Mild ITCHY IF Verified 05/21/22 23:00 TOUCHES metformin AdvReac Intermediate dizziness, Verified 05/21/22 23:00 blurred vision <Yair Kennedy - Last Filed: 05/21/22 16:59> Review of Systems Review of Systems: Yes all other systems are reviewed and are negative <Colin Mota MD - Last Filed: 05/22/22 06:36> [facility] Past Medical History Medical History: Medical History Allergic rhinitis Arthritis Asthma Benign essential hypertension Bilateral lower extremity edema Bilateral primary osteoarthritis of knee Breast nodule Breast pain, right Calcific tendinitis of right hip Carpal tunnel syndrome, bilateral Diverticulosis Fibromyalgia GERD without esophagitis Goiter HLD (hyperlipidemia) Hx pulmonary embolism Internal and external hemorrhoids without complication Intertrigo Low back pain Mammogram abnormal Migraine Obesity (BMI 30-39.9) Overactive bladder Pure hypercholesterolemia Rectal bleed Rectal bleeding Right hip pain Right lumbar radiculopathy T2DM (type 2 diabetes mellitus) Varicose veins of both lower extremities with pain Vitamin B12 deficiency Vitamin D deficiency <Yair Kennedy - Last Filed: 05/21/22 16:59> Surgical History: Surgical History History of colonoscopy History of incision and drainage History of mammogram History of tonsillectomy and adenoidectomy Hx of breast surgery Hx of cataract extraction Hx of cholecystectomy Hx of eye surgery Hx of tubal ligation <Yair Kennedy - Last Filed: 05/21/22 16:59> Family History Family History: Family History Father Hypertension Myocardial infarction Stroke Mother Hypertension Diabetes <Yair Kennedy - Last Filed: 05/21/22 16:59> Social History Social History: Social History Household Members: Spouse and Children Housing: House Are you a primary pharmacist critical care to a significant other at home: No Do you presently have visiting nurse or other home services: No Alcohol intake: never Patient Tobacco Use Status: Never used Tobacco Smoked in Last 30 Days: No Second Hand Smoke Exposure: No Use of substances other than those prescribed or required for medical reasons: No Advance Directives: No Advance Directives Information Provided: Yes service: No Current occupational status: disabled Cognitive needs: No Hearing needs: No Vision needs: Yes <Yair Kennedy - Last Filed: 05/21/22 16:59> Physical Exam ED Vital Signs: Vital Signs - 24 hr 05/21/22 16:48 05/21/22 23:08 05/22/22 01:07 Temperature 98.0 F 98.6 F 98.8 F Pulse Rate 110 H 102 H 106 H Respiratory Rate 20 18 17 Blood Pressure 128/70 186/79 H 144/62 H Pulse Oximetry 97 96 99 Oxygen Delivery Method Room Air Room Air 05/22/22 02:44 Temperature 98.9 F Pulse Rate 100 Respiratory Rate 20 Blood Pressure 149/67 H Pulse Oximetry 99 Oxygen Delivery Method Room Air BMI result Body Mass Index 28.1 <Yair Kennedy - Last Filed: 05/21/22 16:59> Vital Signs - 24 hr 05/21/22 16:48 05/21/22 23:08 05/22/22 01:07 Temperature 98.0 F 98.6 F 98.8 F Pulse Rate 110 H 102 H 106 H Respiratory Rate 20 18 17 Blood Pressure 128/70 186/79 H 144/62 H Pulse Oximetry 97 96 99 Oxygen Delivery Method Room Air Room Air 05/22/22 02:44 Temperature 98.9 F Pulse Rate 100 Respiratory Rate 20 Blood Pressure 149/67 H Pulse Oximetry 99 Oxygen Delivery Method Room Air BMI result Body Mass Index 28.1 <Colin Mota MD - Last Filed: 05/22/22 06:36> Vital Signs - 24 hr 05/21/22 16:48 03/01/23 23:08 05/22/22 01:07 Temperature 98.0 F 98.6 F 98.8 F Pulse Rate 110 H 102 H 106 H Respiratory Rate 20 18 17 Blood Pressure 128/70 186/79 H 144/62 H Pulse Oximetry 97 96 99 Oxygen Delivery Method Room Air Room Air 05/22/22 02:44 Temperature 98.9 F Pulse Rate 100 Respiratory Rate 20 Blood Pressure 149/67 H Pulse Oximetry 99 Oxygen Delivery Method Room Air BMI result Body Mass Index 28.1 <Katt Austin MD - Last Filed: 05/22/22 09:23> Appearance: Alert. Oriented X3. No acute distress. Eyes: PERRLA, No Nystagmus ENT: Pharynx normal. Oral Mucosa dry Neck: Normal inspection. Neck supple. CVS: Normal heart rate and rhythm. Pulses normal. Respiratory: No respiratory distress. Equal air entry bilateral, no wheezing/rales/rhonchi Abdomen: Soft and nontender. Bowel sounds are present, no mass palpable, no CVA tenderness Skin: Skin warm and dry. Normal skin color. Normal skin turgor. Extremities: No lower extremity edema. No calf tenderness Neuro: Oriented X 3. No motor deficit. No sensory deficit.No cerebellar signs , cranial nerves II-XII intact involuntary movements of the right upper extremity <Colin Mota MD - Last Filed: 05/22/22 06:36> Course Course Course Narrative: RME- 66-year-old female with past medical history significant for diabetes presents for evaluation of high blood sugar. She states that she believes her blood sugars ?over 800. Patient is well appearing, vital signs are stable on arrival. Plan of care glucose was greater than 600. Plan for labs including serum acetone <Yair Kennedy - Last Filed: 05/21/22 16:59> Reevaluation(s) Reevaluation #1: I received a call from the pharmacy regarding a prescription for list broke. On review of all documentation it appears that patient's hyperglycemia is secondary to having received a steroid injection. I reviewed her previous medication list and I do not find any evidence of patient being on list pro previously and she currently is on metformin as well as Trulicity. At this time I instructed the pharmacy that they did not need to fill this prescription and asked them to please reiterate to the patient that she needed to follow-up with her primary care provider today. <Katt Austin MD - Last Filed: 05/22/22 09:23> Time: 09:22 <Katt Austin MD - Last Filed: 05/22/22 09:23> Medications Administered Discontinued Medications Generic Name Dose Route Start Last Admin Trade Name Ari PRN Reason Stop Dose Admin Diphenhydramine HCl 25 mg 05/21/22 22:28 05/21/22 23:00 Diphenhydramine Hcl 50 Mg/Ml Vial IVPUSH 05/21/22 22:29 25 mg ONCE ONE Administration Sodium Chloride 1,000 mls @ 999 mls/hr 05/21/22 21:34 05/21/22 23:37 Ns IV 05/21/22 22:34 Infused .Q1H1M ONE Infusion Sodium Chloride 1,000 mls @ 999 mls/hr 05/21/22 23:37 05/22/22 01:43 Ns IV 05/22/22 00:37 Infused .Q1H1M ONE Infusion Insulin Glargine 20 unit 05/21/22 21:35 05/21/22 22:18 Insulin Glargine,Hum.Rec.Anlog 100 Unit/Ml 10 Ml Vial SUBCUT 05/21/22 21:36 20 unit ONCE ONE Administration Insulin Human Lispro 16 unit 05/21/22 21:35 05/21/22 22:18 Insulin Lispro 100 Unit/Ml 3 Ml Vial SUBCUT 05/21/22 21:36 16 unit ONCE ONE Administration Insulin Human Lispro 12 unit 05/21/22 23:37 05/22/22 00:11 Insulin Lispro 100 Unit/Ml 3 Ml Vial SUBCUT 05/21/22 23:38 12 unit ONCE ONE Administration Ketorolac Tromethamine 30 mg 05/21/22 23:42 05/22/22 00:13 Ketorolac Tromethamine 30 Mg/Ml Vial IVPUSH 05/21/22 23:43 30 mg ONCE ONE Administration Lorazepam 1 mg 05/22/22 01:08 05/22/22 01:57 Lorazepam 2 Mg/Ml Vial IVPUSH 05/22/22 01:09 1 mg ONCE ONE Administration <Yair Kennedy - Last Filed: 05/21/22 16:59> Medications Administered Discontinued Medications Generic Name Dose Route Start Last Admin Trade Name Freq PRN Reason Stop Dose Admin Diphenhydramine HCl 25 mg 05/21/22 22:28 05/21/22 23:00 Diphenhydramine Hcl 50 Mg/Ml Vial IVPUSH 05/21/22 22:29 25 mg ONCE ONE Administration Sodium Chloride 1,000 mls @ 999 mls/hr 05/21/22 21:34 05/21/22 23:37 Ns IV 05/21/22 22:34 Infused .Q1H1M ONE Infusion Sodium Chloride 1,000 mls @ 999 mls/hr 05/21/22 23:37 05/22/22 01:43 Ns IV 05/22/22 00:37 Infused .Q1H1M ONE Infusion Insulin Glargine 20 unit 05/21/22 21:35 05/21/22 22:18 Insulin Glargine,Hum.Rec.Anlog 100 Unit/Ml 10 Ml Vial SUBCUT 05/21/22 21:36 20 unit ONCE ONE Administration Insulin Human Lispro 16 unit 05/21/22 21:35 05/21/22 22:18 Insulin Lispro 100 Unit/Ml 3 Ml Vial SUBCUT 05/21/22 21:36 16 unit ONCE ONE Administration Insulin Human Lispro 12 unit 05/21/22 23:37 05/22/22 00:11 Insulin Lispro 100 Unit/Ml 3 Ml Vial SUBCUT 05/21/22 23:38 12 unit ONCE ONE Administration Ketorolac Tromethamine 30 mg 05/21/22 23:42 05/22/22 00:13 Ketorolac Tromethamine 30 Mg/Ml Vial IVPUSH 05/21/22 23:43 30 mg ONCE ONE Administration Lorazepam 1 mg 05/22/22 01:08 05/22/22 01:57 Lorazepam 2 Mg/Ml Vial IVPUSH 05/22/22 01:09 1 mg ONCE ONE Administration <Colin Mota MD - Last Filed: 05/22/22 06:36> Medications Administered Discontinued Medications Generic Name Dose Route Start Last Admin Trade Name Freq PRN Reason Stop Dose Admin Diphenhydramine HCl 25 mg 05/21/22 22:28 05/21/22 23:00 Diphenhydramine Hcl 50 Mg/Ml Vial IVPUSH 05/21/22 22:29 25 mg ONCE ONE Administration Sodium Chloride 1,000 mls @ 999 mls/hr 05/21/22 21:34 05/21/22 23:37 Ns IV 05/21/22 22:34 Infused .Q1H1M ONE Infusion Sodium Chloride 1,000 mls @ 999 mls/hr 05/21/22 23:37 05/22/22 01:43 Ns IV 05/22/22 00:37 Infused .Q1H1M ONE Infusion Insulin Glargine 20 unit 05/21/22 21:35 05/21/22 22:18 Insulin Glargine,Hum.Rec.Anlog 100 Unit/Ml 10 Ml Vial SUBCUT 05/21/22 21:36 20 unit ONCE ONE Administration Insulin Human Lispro 16 unit 05/21/22 21:35 05/21/22 22:18 Insulin Lispro 100 Unit/Ml 3 Ml Vial SUBCUT 05/21/22 21:36 16 unit ONCE ONE Administration Insulin Human Lispro 12 unit 05/21/22 23:37 05/22/22 00:11 Insulin Lispro 100 Unit/Ml 3 Ml Vial SUBCUT 05/21/22 23:38 12 unit ONCE ONE Administration Ketorolac Tromethamine 30 mg 05/21/22 23:42 05/22/22 00:13 Ketorolac Tromethamine 30 Mg/Ml Vial IVPUSH 05/21/22 23:43 30 mg ONCE ONE Administration Lorazepam 1 mg 05/22/22 01:08 05/22/22 01:57 Lorazepam 2 Mg/Ml Vial IVPUSH 05/22/22 01:09 1 mg ONCE ONE Administration <Katt Austin MD - Last Filed: 05/22/22 09:23> Medical Decision Making Medical Decision Making [facility] Narrative: Patient with diabetes with hyperglycemia secondary to steroid injection not ketotic will give IV fluids insulin and recheck <Colin Mota MD - Last Filed: 05/22/22 06:36> Lab Data MDM Lab Attestation statement: I reviewed the patient's lab results. <Colin Mota MD - Last Filed: 05/22/22 06:36> Result Diagrams: 05/21/22 18:13 05/21/22 18:13 <Yair Kennedy - Last Filed: 05/21/22 16:59> Labs: Lab Results 05/21/22 05/21/22 05/21/22 Range/Units 16:51 16:56 18:13 WBC 9.2 (4.8-10.8) X10*3/uL RBC 4.36 (4.20-5.50) X10*6/uL Hgb 11.7 L (12.0-16.0) g/dl Hct 36.7 L (37.0-47.0) % MCV 84.2 (80.0-98.0) fL MCH 26.8 L (27.0-33.0) pg MCHC 31.9 (31.0-35.0) g/dl RDW 14.6 (11.0-16.0) % Plt Count 334 (160-400) X10*3/uL MPV 11.1 (9.4-12.3) fL Immature Gran % (Auto) 0.3 (0.0-0.4) % Neut % (Auto) 59.4 (45-73) % Lymph % (Auto) 34.2 (20-40) % [place] % (Auto) 5.7 (2-11) % Eos % (Auto) 0.3 (0-4) % Baso % (Auto) 0.1 (0-2) % Lymph # (Auto) 3.2 (1.2-4.9) X10*3/uL [place] # (Auto) 0.5 (0.1-1.2) X10*3/uL Eos # (Auto) 0.0 (0.0-0.4) X10*3/uL Baso # (Auto) 0.0 (0.0-0.2) X10*3/uL Abs Immat Gran (auto) 0.03 (0.00-0.03) X10*3/uL Absolute Neuts (auto) 5.5 (2.0-8.3) x10*3/uL Absolute Nucleated RBC 0.000 (0.0-0.012) X10*3/uL Nucleated RBC % (auto) 0.0 (0.0-0.2) /100WBC Sodium (135-145) mmol/L Potassium (3.3-5.1) mmol/L Chloride (96-108) mmol/L Carbon Dioxide (22-29) mmol/L Anion Gap (12-20) BUN (9-16) mg/dL Creatinine (0.5-1.4) mg/dL Estim Creat Clear Calc Estimated GFR POC Glucose > 600 H* > 600 H* (60-115) mg/dL Random Glucose (60-115) mg/dL Estimat Average Glucose Hemoglobin A1c % % Calcium (8.4-10.2) mg/dL Magnesium (1.6-2.6) mg/dL Total Bilirubin (0.0-1.0) mg/dL AST (5-31) U/L ALT (0-31) U/L Alkaline Phosphatase (39-117) U/L Total Protein (6.5-8.0) g/dL Albumin (3.5-5.0) g/dL Urine Color Urine Appearance Urine pH (5.0-9.0) Ur Specific [place] (1.005-1.025) Urine Protein (Neg-Trace) mg/dL Urine Glucose (UA) (Negative) mg/dL Urine Ketones (Negative) mg/dL Urine Blood (Negative) Urine Nitrite (Negative) Ur Leukocyte Esterase (Negative) Urine RBC (0-2) /HPF Urine WBC (0-5) /HPF Ur Squamous Epith Cells (0-2) /HPF Urine Bacteria (None Seen) Hyaline Casts (0-2) /LPF Acetone, Qual (Negative) 05/21/22 05/21/22 05/21/22 Range/Units 18:13 18:13 21:52 WBC (4.8-10.8) X10*3/uL RBC (4.20-5.50) X10*6/uL Hgb (12.0-16.0) g/dl Hct (37.0-47.0) % MCV (80.0-98.0) fL MCH (27.0-33.0) pg MCHC (31.0-35.0) g/dl RDW (11.0-16.0) % Plt Count (160-400) X10*3/uL MPV (9.4-12.3) fL Immature Gran % (Auto) (0.0-0.4) % Neut % (Auto) (45-73) % Lymph % (Auto) (20-40) % [place] % (Auto) (2-11) % Eos % (Auto) (0-4) % Baso % (Auto) (0-2) % Lymph # (Auto) (1.2-4.9) X10*3/uL [place] # (Auto) (0.1-1.2) X10*3/uL Eos # (Auto) (0.0-0.4) X10*3/uL Baso # (Auto) (0.0-0.2) X10*3/uL Abs Immat Gran (auto) (0.00-0.03) X10*3/uL Absolute Neuts (auto) (2.0-8.3) x10*3/uL Absolute Nucleated RBC (0.0-0.012) X10*3/uL Nucleated RBC % (auto) (0.0-0.2) /100WBC Sodium 131 L (135-145) mmol/L Potassium 4.2 (3.3-5.1) mmol/L Chloride 91 L (96-108) mmol/L Carbon Dioxide 28 (22-29) mmol/L Anion Gap 16 (12-20) BUN 7 L (9-16) mg/dL Creatinine 1.02 (0.5-1.4) mg/dL Estim Creat Clear Calc 59.6 Estimated GFR 54 POC Glucose (60-115) mg/dL Random Glucose 689 H* (60-115) mg/dL Estimat Average Glucose TNP Hemoglobin A1c % > 14.0 % Calcium 9.1 (8.4-10.2) mg/dL Magnesium (1.6-2.6) mg/dL Total Bilirubin 0.6 (0.0-1.0) mg/dL AST 12 (5-31) U/L ALT 12 (0-31) U/L Alkaline Phosphatase 128 H (39-117) U/L Total Protein 6.4 L (6.5-8.0) g/dL Albumin 3.8 (3.5-5.0) g/dL Urine Color Yellow Urine Appearance Clear Urine pH 7.0 (5.0-9.0) Ur Specific [place] >= 1.030 H (1.005-1.025) Urine Protein Negative (Neg-Trace) mg/dL Urine Glucose (UA) >=1000 H (Negative) mg/dL Urine Ketones 15 (Negative) mg/dL Urine Blood Negative (Negative) Urine Nitrite Negative (Negative) Ur Leukocyte Esterase Negative (Negative) Urine RBC 0-2 (0-2) /HPF Urine WBC 0-5 (0-5) /HPF Ur Squamous Epith Cells 0-2 (0-2) /HPF Urine Bacteria None Seen (None Seen) Hyaline Casts 0-2 (0-2) /LPF Acetone, Qual Negative (Negative) 05/21/22 05/21/22 05/22/22 Range/Units 22:16 23:11 01:15 WBC (4.8-10.8) X10*3/uL RBC (4.20-5.50) X10*6/uL Hgb (12.0-16.0) g/dl Hct (37.0-47.0) % MCV (80.0-98.0) fL MCH (27.0-33.0) pg MCHC (31.0-35.0) g/dl RDW (11.0-16.0) % Plt Count (160-400) X10*3/uL MPV (9.4-12.3) fL Immature Gran % (Auto) (0.0-0.4) % Neut % (Auto) (45-73) % Lymph % (Auto) (20-40) % [place] % (Auto) (2-11) % Eos % (Auto) (0-4) % Baso % (Auto) (0-2) % Lymph # (Auto) (1.2-4.9) X10*3/uL [place] # (Auto) (0.1-1.2) X10*3/uL Eos # (Auto) (0.0-0.4) X10*3/uL Baso # (Auto) (0.0-0.2) X10*3/uL Abs Immat Gran (auto) (0.00-0.03) X10*3/uL Absolute Neuts (auto) (2.0-8.3) x10*3/uL Absolute Nucleated RBC (0.0-0.012) X10*3/uL Nucleated RBC % (auto) (0.0-0.2) /100WBC Sodium 139 (135-145) mmol/L Potassium 3.3 D (3.3-5.1) mmol/L Chloride 103 (96-108) mmol/L Carbon Dioxide 27 (22-29) mmol/L Anion Gap 12 (12-20) BUN 6 L (9-16) mg/dL Creatinine 0.81 (0.5-1.4) mg/dL Estim Creat Clear Calc 75.1 Estimated GFR > 60 POC Glucose 471 H* 420 H* (60-115) mg/dL Random Glucose 264 H (60-115) mg/dL Estimat Average Glucose Hemoglobin A1c % % Calcium 8.2 L D (8.4-10.2) mg/dL Magnesium 1.7 (1.6-2.6) mg/dL Total Bilirubin (0.0-1.0) mg/dL AST (5-31) U/L ALT (0-31) U/L Alkaline Phosphatase (39-117) U/L Total Protein (6.5-8.0) g/dL Albumin (3.5-5.0) g/dL Urine Color Urine Appearance Urine pH (5.0-9.0) Ur Specific [place] (1.005-1.025) Urine Protein (Neg-Trace) mg/dL Urine Glucose (UA) (Negative) mg/dL Urine Ketones (Negative) mg/dL Urine Blood (Negative) Urine Nitrite (Negative) Ur Leukocyte Esterase (Negative) Urine RBC (0-2) /HPF Urine WBC (0-5) /HPF Ur Squamous Epith Cells (0-2) /HPF Urine Bacteria (None Seen) Hyaline Casts (0-2) /LPF Acetone, Qual (Negative) <Yair Kennedy - Last Filed: 05/21/22 16:59> Lab Results 05/21/22 05/21/22 05/21/22 Range/Units 16:51 16:56 18:13 WBC 9.2 (4.8-10.8) X10*3/uL RBC 4.36 (4.20-5.50) X10*6/uL Hgb 11.7 L (12.0-16.0) g/dl Hct 36.7 L (37.0-47.0) % MCV 84.2 (80.0-98.0) fL MCH 26.8 L (27.0-33.0) pg MCHC 31.9 (31.0-35.0) g/dl RDW 14.6 (11.0-16.0) % Plt Count 334 (160-400) X10*3/uL MPV 11.1 (9.4-12.3) fL Immature Gran % (Auto) 0.3 (0.0-0.4) % Neut % (Auto) 59.4 (45-73) % Lymph % (Auto) 34.2 (20-40) % [place] % (Auto) 5.7 (2-11) % Eos % (Auto) 0.3 (0-4) % Baso % (Auto) 0.1 (0-2) % Lymph # (Auto) 3.2 (1.2-4.9) X10*3/uL [place] # (Auto) 0.5 (0.1-1.2) X10*3/uL Eos # (Auto) 0.0 (0.0-0.4) X10*3/uL Baso # (Auto) 0.0 (0.0-0.2) X10*3/uL Abs Immat Gran (auto) 0.03 (0.00-0.03) X10*3/uL Absolute Neuts (auto) 5.5 (2.0-8.3) x10*3/uL Absolute Nucleated RBC 0.000 (0.0-0.012) X10*3/uL Nucleated RBC % (auto) 0.0 (0.0-0.2) /100WBC Sodium (135-145) mmol/L Potassium (3.3-5.1) mmol/L Chloride (96-108) mmol/L Carbon Dioxide (22-29) mmol/L Anion Gap (12-20) BUN (9-16) mg/dL Creatinine (0.5-1.4) mg/dL Estim Creat Clear Calc Estimated GFR POC Glucose > 600 H* > 600 H* (60-115) mg/dL Random Glucose (60-115) mg/dL Estimat Average Glucose Hemoglobin A1c % % Calcium (8.4-10.2) mg/dL Magnesium (1.6-2.6) mg/dL Total Bilirubin (0.0-1.0) mg/dL AST (5-31) U/L ALT (0-31) U/L Alkaline Phosphatase (39-117) U/L Total Protein (6.5-8.0) g/dL Albumin (3.5-5.0) g/dL Urine Color Urine Appearance Urine pH (5.0-9.0) Ur Specific [place] (1.005-1.025) Urine Protein (Neg-Trace) mg/dL Urine Glucose (UA) (Negative) mg/dL Urine Ketones (Negative) mg/dL Urine Blood (Negative) Urine Nitrite (Negative) Ur Leukocyte Esterase (Negative) Urine RBC (0-2) /HPF Urine WBC (0-5) /HPF Ur Squamous Epith Cells (0-2) /HPF Urine Bacteria (None Seen) Hyaline Casts (0-2) /LPF Acetone, Qual (Negative) 05/21/22 05/21/22 05/21/22 Range/Units 18:13 18:13 21:52 WBC (4.8-10.8) X10*3/uL RBC (4.20-5.50) X10*6/uL Hgb (12.0-16.0) g/dl Hct (37.0-47.0) % MCV (80.0-98.0) fL MCH (27.0-33.0) pg MCHC (31.0-35.0) g/dl RDW (11.0-16.0) % Plt Count (160-400) X10*3/uL MPV (9.4-12.3) fL Immature Gran % (Auto) (0.0-0.4) % Neut % (Auto) (45-73) % Lymph % (Auto) (20-40) % [place] % (Auto) (2-11) % Eos % (Auto) (0-4) % Baso % (Auto) (0-2) % Lymph # (Auto) (1.2-4.9) X10*3/uL [place] # (Auto) (0.1-1.2) X10*3/uL Eos # (Auto) (0.0-0.4) X10*3/uL Baso # (Auto) (0.0-0.2) X10*3/uL Abs Immat Gran (auto) (0.00-0.03) X10*3/uL Absolute Neuts (auto) (2.0-8.3) x10*3/uL Absolute Nucleated RBC (0.0-0.012) X10*3/uL Nucleated RBC % (auto) (0.0-0.2) /100WBC Sodium 131 L (135-145) mmol/L Potassium 4.2 (3.3-5.1) mmol/L Chloride 91 L (96-108) mmol/L Carbon Dioxide 28 (22-29) mmol/L Anion Gap 16 (12-20) BUN 7 L (9-16) mg/dL Creatinine 1.02 (0.5-1.4) mg/dL Estim Creat Clear Calc 59.6 Estimated GFR 54 POC Glucose (60-115) mg/dL Random Glucose 689 H* (60-115) mg/dL Estimat Average Glucose TNP Hemoglobin A1c % > 14.0 % Calcium 9.1 (8.4-10.2) mg/dL Magnesium (1.6-2.6) mg/dL Total Bilirubin 0.6 (0.0-1.0) mg/dL AST 12 (5-31) U/L ALT 12 (0-31) U/L Alkaline Phosphatase 128 H (39-117) U/L Total Protein 6.4 L (6.5-8.0) g/dL Albumin 3.8 (3.5-5.0) g/dL Urine Color Yellow Urine Appearance Clear Urine pH 7.0 (5.0-9.0) Ur Specific [place] >= 1.030 H (1.005-1.025) Urine Protein Negative (Neg-Trace) mg/dL Urine Glucose (UA) >=1000 H (Negative) mg/dL Urine Ketones 15 (Negative) mg/dL Urine Blood Negative (Negative) Urine Nitrite Negative (Negative) Ur Leukocyte Esterase Negative (Negative) Urine RBC 0-2 (0-2) /HPF Urine WBC 0-5 (0-5) /HPF Ur Squamous Epith Cells 0-2 (0-2) /HPF Urine Bacteria None Seen (None Seen) Hyaline Casts 0-2 (0-2) /LPF Acetone, Qual Negative (Negative) 05/21/22 05/21/22 05/22/22 Range/Units 22:16 23:11 01:15 WBC (4.8-10.8) X10*3/uL RBC (4.20-5.50) X10*6/uL Hgb (12.0-16.0) g/dl Hct (37.0-47.0) % MCV (80.0-98.0) fL MCH (27.0-33.0) pg MCHC (31.0-35.0) g/dl RDW (11.0-16.0) % Plt Count (160-400) X10*3/uL MPV (9.4-12.3) fL Immature Gran % (Auto) (0.0-0.4) % Neut % (Auto) (45-73) % Lymph % (Auto) (20-40) % [place] % (Auto) (2-11) % Eos % (Auto) (0-4) % Baso % (Auto) (0-2) % Lymph # (Auto) (1.2-4.9) X10*3/uL [place] # (Auto) (0.1-1.2) X10*3/uL Eos # (Auto) (0.0-0.4) X10*3/uL Baso # (Auto) (0.0-0.2) X10*3/uL Abs Immat Gran (auto) (0.00-0.03) X10*3/uL Absolute Neuts (auto) (2.0-8.3) x10*3/uL Absolute Nucleated RBC (0.0-0.012) X10*3/uL Nucleated RBC % (auto) (0.0-0.2) /100WBC Sodium 139 (135-145) mmol/L Potassium 3.3 D (3.3-5.1) mmol/L Chloride 103 (96-108) mmol/L Carbon Dioxide 27 (22-29) mmol/L Anion Gap 12 (12-20) BUN 6 L (9-16) mg/dL Creatinine 0.81 (0.5-1.4) mg/dL Estim Creat Clear Calc 75.1 Estimated GFR > 60 POC Glucose 471 H* 420 H* (60-115) mg/dL Random Glucose 264 H (60-115) mg/dL Estimat Average Glucose Hemoglobin A1c % % Calcium 8.2 L D (8.4-10.2) mg/dL Magnesium 1.7 (1.6-2.6) mg/dL Total Bilirubin (0.0-1.0) mg/dL AST (5-31) U/L ALT (0-31) U/L Alkaline Phosphatase (39-117) U/L Total Protein (6.5-8.0) g/dL Albumin (3.5-5.0) g/dL Urine Color Urine Appearance Urine pH (5.0-9.0) Ur Specific [place] (1.005-1.025) Urine Protein (Neg-Trace) mg/dL Urine Glucose (UA) (Negative) mg/dL Urine Ketones (Negative) mg/dL Urine Blood (Negative) Urine Nitrite (Negative) Ur Leukocyte Esterase (Negative) Urine RBC (0-2) /HPF Urine WBC (0-5) /HPF Ur Squamous Epith Cells (0-2) /HPF Urine Bacteria (None Seen) Hyaline Casts (0-2) /LPF Acetone, Qual (Negative) <Colin Mota MD - Last Filed: 05/22/22 06:36> Lab Results 05/21/22 05/21/22 05/21/22 Range/Units 16:51 16:56 18:13 WBC 9.2 (4.8-10.8) X10*3/uL RBC 4.36 (4.20-5.50) X10*6/uL Hgb 11.7 L (12.0-16.0) g/dl Hct 36.7 L (37.0-47.0) % MCV 84.2 (80.0-98.0) fL MCH 26.8 L (27.0-33.0) pg MCHC 31.9 (31.0-35.0) g/dl RDW 14.6 (11.0-16.0) % Plt Count 334 (160-400) X10*3/uL MPV 11.1 (9.4-12.3) fL Immature Gran % (Auto) 0.3 (0.0-0.4) % Neut % (Auto) 59.4 (45-73) % Lymph % (Auto) 34.2 (20-40) % [place] % (Auto) 5.7 (2-11) % Eos % (Auto) 0.3 (0-4) % Baso % (Auto) 0.1 (0-2) % Lymph # (Auto) 3.2 (1.2-4.9) X10*3/uL [place] # (Auto) 0.5 (0.1-1.2) X10*3/uL Eos # (Auto) 0.0 (0.0-0.4) X10*3/uL Baso # (Auto) 0.0 (0.0-0.2) X10*3/uL Abs Immat Gran (auto) 0.03 (0.00-0.03) X10*3/uL Absolute Neuts (auto) 5.5 (2.0-8.3) x10*3/uL Absolute Nucleated RBC 0.000 (0.0-0.012) X10*3/uL Nucleated RBC % (auto) 0.0 (0.0-0.2) /100WBC Sodium (135-145) mmol/L Potassium (3.3-5.1) mmol/L Chloride (96-108) mmol/L Carbon Dioxide (22-29) mmol/L Anion Gap (12-20) BUN (9-16) mg/dL Creatinine (0.5-1.4) mg/dL Estim Creat Clear Calc Estimated GFR POC Glucose > 600 H* > 600 H* (60-115) mg/dL Random Glucose (60-115) mg/dL Estimat Average Glucose Hemoglobin A1c % % Calcium (8.4-10.2) mg/dL Magnesium (1.6-2.6) mg/dL Total Bilirubin (0.0-1.0) mg/dL AST (5-31) U/L ALT (0-31) U/L Alkaline Phosphatase (39-117) U/L Total Protein (6.5-8.0) g/dL Albumin (3.5-5.0) g/dL Urine Color Urine Appearance Urine pH (5.0-9.0) Ur Specific [place] (1.005-1.025) Urine Protein (Neg-Trace) mg/dL Urine Glucose (UA) (Negative) mg/dL Urine Ketones (Negative) mg/dL Urine Blood (Negative) Urine Nitrite (Negative) Ur Leukocyte Esterase (Negative) Urine RBC (0-2) /HPF Urine WBC (0-5) /HPF Ur Squamous Epith Cells (0-2) /HPF Urine Bacteria (None Seen) Hyaline Casts (0-2) /LPF Acetone, Qual (Negative) 05/21/22 05/21/22 05/21/22 Range/Units 18:13 18:13 21:52 WBC (4.8-10.8) X10*3/uL RBC (4.20-5.50) X10*6/uL Hgb (12.0-16.0) g/dl Hct (37.0-47.0) % MCV (80.0-98.0) fL MCH (27.0-33.0) pg MCHC (31.0-35.0) g/dl RDW (11.0-16.0) % Plt Count (160-400) X10*3/uL MPV (9.4-12.3) fL Immature Gran % (Auto) (0.0-0.4) % Neut % (Auto) (45-73) % Lymph % (Auto) (20-40) % [place] % (Auto) (2-11) % Eos % (Auto) (0-4) % Baso % (Auto) (0-2) % Lymph # (Auto) (1.2-4.9) X10*3/uL [place] # (Auto) (0.1-1.2) X10*3/uL Eos # (Auto) (0.0-0.4) X10*3/uL Baso # (Auto) (0.0-0.2) X10*3/uL Abs Immat Gran (auto) (0.00-0.03) X10*3/uL Absolute Neuts (auto) (2.0-8.3) x10*3/uL Absolute Nucleated RBC (0.0-0.012) X10*3/uL Nucleated RBC % (auto) (0.0-0.2) /100WBC Sodium 131 L (135-145) mmol/L Potassium 4.2 (3.3-5.1) mmol/L Chloride 91 L (96-108) mmol/L Carbon Dioxide 28 (22-29) mmol/L Anion Gap 16 (12-20) BUN 7 L (9-16) mg/dL Creatinine 1.02 (0.5-1.4) mg/dL Estim Creat Clear Calc 59.6 Estimated GFR 54 POC Glucose (60-115) mg/dL Random Glucose 689 H* (60-115) mg/dL Estimat Average Glucose TNP Hemoglobin A1c % > 14.0 % Calcium 9.1 (8.4-10.2) mg/dL Magnesium (1.6-2.6) mg/dL Total Bilirubin 0.6 (0.0-1.0) mg/dL AST 12 (5-31) U/L ALT 12 (0-31) U/L Alkaline Phosphatase 128 H (39-117) U/L Total Protein 6.4 L (6.5-8.0) g/dL Albumin 3.8 (3.5-5.0) g/dL Urine Color Yellow Urine Appearance Clear Urine pH 7.0 (5.0-9.0) Ur Specific [place] >= 1.030 H (1.005-1.025) Urine Protein Negative (Neg-Trace) mg/dL Urine Glucose (UA) >=1000 H (Negative) mg/dL Urine Ketones 15 (Negative) mg/dL Urine Blood Negative (Negative) Urine Nitrite Negative (Negative) Ur Leukocyte Esterase Negative (Negative) Urine RBC 0-2 (0-2) /HPF Urine WBC 0-5 (0-5) /HPF Ur Squamous Epith Cells 0-2 (0-2) /HPF Urine Bacteria None Seen (None Seen) Hyaline Casts 0-2 (0-2) /LPF Acetone, Qual Negative (Negative) 05/21/22 05/21/22 05/22/22 Range/Units 22:16 23:11 01:15 WBC (4.8-10.8) X10*3/uL RBC (4.20-5.50) X10*6/uL Hgb (12.0-16.0) g/dl Hct (37.0-47.0) % MCV (80.0-98.0) fL MCH (27.0-33.0) pg MCHC (31.0-35.0) g/dl RDW (11.0-16.0) % Plt Count (160-400) X10*3/uL MPV (9.4-12.3) fL Immature Gran % (Auto) (0.0-0.4) % Neut % (Auto) (45-73) % Lymph % (Auto) (20-40) % [place] % (Auto) (2-11) % Eos % (Auto) (0-4) % Baso % (Auto) (0-2) % Lymph # (Auto) (1.2-4.9) X10*3/uL [place] # (Auto) (0.1-1.2) X10*3/uL Eos # (Auto) (0.0-0.4) X10*3/uL Baso # (Auto) (0.0-0.2) X10*3/uL Abs Immat Gran (auto) (0.00-0.03) X10*3/uL Absolute Neuts (auto) (2.0-8.3) x10*3/uL Absolute Nucleated RBC (0.0-0.012) X10*3/uL Nucleated RBC % (auto) (0.0-0.2) /100WBC Sodium 139 (135-145) mmol/L Potassium 3.3 D (3.3-5.1) mmol/L Chloride 103 (96-108) mmol/L Carbon Dioxide 27 (22-29) mmol/L Anion Gap 12 (12-20) BUN 6 L (9-16) mg/dL Creatinine 0.81 (0.5-1.4) mg/dL Estim Creat Clear Calc 75.1 Estimated GFR > 60 POC Glucose 471 H* 420 H* (60-115) mg/dL Random Glucose 264 H (60-115) mg/dL Estimat Average Glucose Hemoglobin A1c % % Calcium 8.2 L D (8.4-10.2) mg/dL Magnesium 1.7 (1.6-2.6) mg/dL Total Bilirubin (0.0-1.0) mg/dL AST (5-31) U/L ALT (0-31) U/L Alkaline Phosphatase (39-117) U/L Total Protein (6.5-8.0) g/dL Albumin (3.5-5.0) g/dL Urine Color Urine Appearance Urine pH (5.0-9.0) Ur Specific [place] (1.005-1.025) Urine Protein (Neg-Trace) mg/dL Urine Glucose (UA) (Negative) mg/dL Urine Ketones (Negative) mg/dL Urine Blood (Negative) Urine Nitrite (Negative) Ur Leukocyte Esterase (Negative) Urine RBC (0-2) /HPF Urine WBC (0-5) /HPF Ur Squamous Epith Cells (0-2) /HPF Urine Bacteria (None Seen) Hyaline Casts (0-2) /LPF Acetone, Qual (Negative) <Katt Austin MD - Last Filed: 05/22/22 09:23> Discharge Plan Discharge Clinical Impression: Hyperglycemia due to type 2 diabetes mellitus <Yair Kennedy - Last Filed: 05/21/22 16:59> Patient Disposition: Home, Self-Care <Yair Kennedy - Last Filed: 05/21/22 16:59> Instructions: Diabetic Hyperglycemia (ED) <Yair Kennedy - Last Filed: 05/21/22 16:59> Additional Instructions: Drink plenty of fluids Increase the dose of Lantus insulin to 20 units every night Humalog insulin 3 times a day before meals as advised on the sliding scale Follow-up with your PCP and diabetic specialist 0-150: 0 Unit 151-200: 2 Units 201-250: 4 units 251-300 : 6 units 301-350 : 8 units 351-400: 10 units and call MD/or come to ED Ativan for anxiety and abnormal hand movements as adv <Yair Kennedy - Last Filed: 05/21/22 16:59> Prescriptions: New insulin glargine [Lantus Solostar U-100 Insulin] 100 unit/mL (3 mL) insulin pen 20 unit subcut QPM Qty: 3 0RF insulin lispro [Humalog KwikPen Insulin] 100 unit/mL insulin pen 1 sliding scale dose subcut USEASDIRECTD Qty: 15 3RF lorazepam [Ativan] 1 mg tablet 1 mg PO DAILY PRN (Reason: anxiety) Qty: 10 0RF No Action [id number] 50-325-40 mg capsule 1 cap PO BID-TID PRN (Reason: for migraine) Qty: 60 0RF (DME) compression stockings See Rx Instructions .Route .MEDSUPPLY Qty: 2 1RF Rx Instructions: Use daily as directed as needed, strength - medium; length - knee high losartan 100 mg tablet 100 mg PO DAILY Qty: 90 0RF ondansetron 8 mg tablet,disintegrating 8 mg PO Q8H Qty: 30 0RF (DME) FreeStyle Lite Strips Strip See Rx Instructions .Route Qty: 100 11RF Rx Instructions: As directed to test blood sugar three times a day (DME) lancets [FreeStyle Lancets] 28 gauge misc See Rx Instructions .Route Qty: 100 11RF Rx Instructions: As directed test blood sugar three times a day (DME) blood-glucose meter [OneTouch Ultra2 Meter] Kit See Rx Instructions .Route Qty: 1 0RF Rx Instructions: As directed 3x/day (DME) OneTouch Ultra Test Strip See Rx Instructions .Route Qty: 100 11RF Rx Instructions: As directed 3x/day (DME) lancets [OneTouch Delica Lancets] 33 gauge misc See Rx Instructions .ROUTE .MEDSUPPLY Qty: 100 11RF Rx Instructions: Three times a day albuterol sulfate 2.5 mg /3 mL (0.083 %) solution for nebulization 2.5 mg continuous nebulization Q4-6H PRN (Reason: Bronchospasm) Qty: 180 5RF albuterol sulfate [Ventolin HFA] 90 mcg/actuation HFA aerosol inhaler 2 puff inhalation Q4-6H PRN (Reason: Bronchospasm) Qty: 18 5RF fluticasone propionate 50 mcg/actuation spray,suspension 2 spray intranasal DAILY Qty: 48 0RF celecoxib [Celebrex] 100 mg capsule 100 mg PO BID PRN (Reason: pain) 30 Days Qty: 60 3RF gabapentin 400 mg capsule 400 mg PO TID 30 Days Qty: 90 3RF tramadol 50 mg tablet 50 mg PO TID PRN (Reason: pain) 30 Days Qty: 90 0RF Eliquis 2.5 mg Tablet 2.5 mg PO BID Qty: 60 6RF folic acid 1 mg Tablet 1 mg PO DAILY Qty: 90 4RF cyanocobalamin (vitamin B-12) 1,000 mcg capsule 1,000 mcg PO DAILY desloratadine [Clarinex] 5 mg tablet 5 mg PO DAILY ascorbate calcium (vitamin C) 500 mg tablet 500 mg PO DAILY amlodipine 10 mg tablet 10 mg PO DAILY hydrochlorothiazide 25 mg tablet 25 mg PO DAILY budesonide-formoterol [Symbicort] 160-4.5 mcg/actuation HFA aerosol inhaler 2 puff inhalation BID aspirin [Adult Aspirin Regimen] 81 mg tablet,delayed release (DR/EC) 81 mg PO DAILY ezetimibe [Zetia] 10 mg tablet 10 mg PO DAILY omeprazole 20 mg capsule,delayed release(DR/EC) 20 mg PO DAILY cyclobenzaprine 10 mg tablet 10 mg PO BEDTIME PRN (Reason: muscle spasm) 30 Days Qty: 30 0RF (DME) LIGHTWEIGHT WHEELCHAIR See Rx Instructions .Route .MEDSUPPLY Qty: 1 0RF Rx Instructions: As directed rosuvastatin 40 mg tablet 40 mg PO DAILY 90 Days Qty: 90 1RF metformin 500 mg tablet extended release 24 hr 1,000 mg PO BID 90 Days Qty: 360 1RF hydrocortisone acetate [Anusol-HC] 25 mg suppository 25 mg OK BID Qty: 24 0RF nitrofurantoin monohyd/m-cryst [Macrobid] 100 mg capsule 100 mg PO Q12H 7 Days Qty: 14 0RF Rx Instructions: must administer with a meal/food (DME) blood-glucose meter [BiotixStyle [place] Lite] Kit See Rx Instructions .ROUTE .MEDSUPPLY Qty: 1 0RF Rx Instructions: As directed cholecalciferol (vitamin D3) 50 mcg (2,000 unit) capsule 50 mcg PO DAILY 30 Days Qty: 30 11RF diclofenac sodium 1 % gel 1 ea topical DAILY Lantus Solostar U-100 Insulin 100 unit/mL (3 mL) insulin pen 5 unit subcut QPM 30 Days Qty: 1.5 11RF (DME) pen needle, diabetic [BD Ultra-Fine Micro Pen Needle] 32 gauge x 1/4 needle See Rx Instructions .ROUTE .MEDSUPPLY Qty: 50 11RF Rx Instructions: As directed Trulicity 0.75 mg/0.5 mL pen injector 0.75 mg subcut QWEEK 30 Days Qty: 2.5 11RF carvedilol [Coreg] 25 mg tablet 25 mg PO BID 90 Days Qty: 180 3RF Rx Instructions: must administer with a meal/food <Yair Kennedy - Last Filed: 05/21/22 16:59> Interventions: ED Discharge Assessment Last Done: 05/22/22 02:52 <Yair Kennedy - Last Filed: 05/21/22 16:59> Discharge Date/Time: 05/22/22 02:52 <Yair Kennedy - Last Filed: 05/21/22 16:59>
[2022-05-21 17:08] LABS: Glucose, Whole Blood > 600 mg/dL (60-115)
[2022-05-21 17:08] LABS: Glucose, Whole Blood > 600 mg/dL (60-115)
[2022-05-21 18:19] LABS: MANUAL DIFF FLAG NO
[2022-05-21 18:25] LABS: Basophils Percent Auto 0.1 % (0-2); Eosinophils Percent Auto 0.3 % (0-4); Hematocrit 36.7 % (37.0-47.0); Hemoglobin 11.7 g/dl (12.0-16.0); Imm Gran Abs Auto 0.03 X10*3/uL (0.00-0.03); Imm Gran Pct Auto 0.3 % (0.0-0.4); Lymphocytes Absolute Auto 3.2 X10*3/uL (1.2-4.9); Lymphocytes Percent Auto 34.2 % (20-40); Mean Corpuscular HGB Conc 31.9 g/dl (31.0-35.0); Mean Corpuscular Hemoglobin 26.8 pg (27.0-33.0); Mean Corpuscular Volume 84.2 fL (80.0-98.0); Mean Platelet Volume 11.1 fL (9.4-12.3); Monocytes Absolute Auto 0.5 X10*3/uL (0.1-1.2); Monocytes Percent Auto 5.7 % (2-11); Neutrophils Absolute Auto 5.5 x10*3/uL (2.0-8.3); Neutrophils Percent Auto 59.4 % (45-73); Platelet Count 334 X10*3/uL (160-400); Red Blood Count 4.36 X10*6/uL (4.20-5.50); Red Cell Distribution Width 14.6 % (11.0-16.0); White Blood Count 9.2 X10*3/uL (4.8-10.8)
[2022-05-21 18:54] LABS: Acetone, serum QL Negative (Negative)
[2022-05-21 18:55] LABS: Alanine Aminotransferase 12 U/L (0-31); Albumin Level 3.8 g/dL (3.5-5.0); Alkaline Phosphatase 128 U/L (39-117); Anion Gap 16 (12-20); Aspartate Amino Transferase 12 U/L (5-31); Bilirubin Total 0.6 mg/dL (0.0-1.0); Blood Urea Nitrogen 7 mg/dL (9-16); Calcium 9.1 mg/dL (8.4-10.2); Carbon Dioxide 28 mmol/L (22-29); Chloride 91 mmol/L (96-108); Creatinine Clr Calc Pharmacy 59.6; Estimated Glomerular Filt Rate 54; Glucose Random 689 mg/dL (60-115); Potassium 4.2 mmol/L (3.3-5.1); Sodium 131 mmol/L (135-145); Total Protein 6.4 g/dL (6.5-8.0)
[2022-05-21 21:59] LABS: Appearance Urine Clear; Color Urine Yellow; Glucose Urine UA >=1000 mg/dL (Negative); Leukocyte Esterase Urine Negative (Negative); Nitrite Urine Negative (Negative); Specific Gravity - Urine >= 1.030 (1.005-1.025); UMIC TRIGGER UACC YES; Urine Blood Negative (Negative); Urine Ketones 15 mg/dL (Negative); Urine Protein Negative (Neg-Trace)
[2022-05-21] MEDS: 0.9 % Sodium Chloride 1,000 ML 999 ML IV (22:09)
[2022-05-21 22:15] LABS: Bacteria Urine None Seen (None Seen); Hyaline Casts Urine 0-2 /LPF (0-2); RBC Urine 0-2 /HPF (0-2); Squamous Epithelial Cell Urine 0-2 /HPF (0-2); WBC Urine 0-5 /HPF (0-5)
[2022-05-21] MEDS: Insulin Glargine,Hum.rec.anlog 100 UNIT/ML 10 ML VIAL 20 UNIT SUBCUT (22:18)
[2022-05-21] MEDS: Insulin Lispro 100 UNIT/ML 3 ML VIAL 16 UNIT SUBCUT (22:18)
[2022-05-21 22:25] LABS: Glucose, Whole Blood 471 mg/dL (60-115)
[2022-05-21] MEDS: diphenhydrAMINE HCL 50 MG/ML VIAL 25 MG IVPUSH (23:00)
--- NOTE | 2022-05-21 23:02 | PC.NURSE ---
pt a&ox3, vss, medicated per provider order, pt resting quietly, daughter at bedside.
[2022-05-21 23:08] VITALS: BP 186/79; PULSE 102; RESP 18; TEMP 37; O2SAT 96
[2022-05-21 23:17] LABS: Glucose, Whole Blood 420 mg/dL (60-115)
--- NOTE | 2022-05-21 23:36 | PC.NURSE ---
assumed care of pt daughter at bedside pt c/o headache, will f/u with provider no apparent distress
--- NOTE | 2022-05-21 23:41 | PC.NURSE ---
provider notified of headache meds to follow
[2022-05-22] MEDS: Insulin Lispro 100 UNIT/ML 3 ML VIAL 12 UNIT SUBCUT (00:11)
[2022-05-22] MEDS: Ketorolac Tromethamine 30 MG/ML VIAL IVPUSH (00:13)
[2022-05-22] MEDS: 0.9 % Sodium Chloride 1,000 ML 999 ML IV (00:16)
[2022-05-22 01:07] VITALS: BP 144/62; PULSE 106; RESP 17; TEMP 37.1; O2SAT 99
[2022-05-22 01:49] LABS: Anion Gap 12 (12-20); Blood Urea Nitrogen 6 mg/dL (9-16); Calcium 8.2 mg/dL (8.4-10.2); Carbon Dioxide 27 mmol/L (22-29); Chloride 103 mmol/L (96-108); Creatinine Clr Calc Pharmacy 75.1; Estimated Glomerular Filt Rate > 60; Glucose Random 264 mg/dL (60-115); Magnesium 1.7 mg/dL (1.6-2.6); Potassium 3.3 mmol/L (3.3-5.1); Sodium 139 mmol/L (135-145)
[2022-05-22] MEDS: LORazepam 2 MG/ML VIAL 1 MG IVPUSH (01:57)
[2022-05-22 02:44] VITALS: BP 149/67; PULSE 100; RESP 20; TEMP 37.2; O2SAT 99
--- NOTE | 2022-05-22 02:50 | PC.NURSE ---
discharge instructions given/explained, ambulates with one assist at baseline, pt is with son and leaving with him, no apparent distress, IV cath tip intact upon removal
[2022-05-22 05:50] LABS: Hemoglobin A1c % > 14.0 %
== END 2022-05-22 02:52 | disposition home or self-care (01) ==
PROVIDERS: Physician Assistant; Emergency Provider Internal Medicine; PCP Internal Medicine
DX: E11.65 Type 2 diabetes mellitus with hyperglycemia (principal); I10 Essential (primary) hypertension; E78.5 Hyperlipidemia, unspecified; Z86.711 Personal history of pulmonary embolism; Z79.01 Long term (current) use of anticoagulants; Z79.82 Long term (current) use of aspirin; Z79.899 Other long term (current) drug therapy; Z79.84 Long term (current) use of oral hypoglycemic drugs; Z79.85 Long-term (current) use of injectable non-insulin antidiabetic drugs
CPT/HCPCS: 36415; 80048; 80053; 81001; 81003; 82009; 82947; 83036; 83735; 85025; 96361; 96374; 96375; 99284; J1200; J1885; J2060

== ENCOUNTER 2022-06-03 12:06 | Outpatient (REF) | payer OTHER, SELFPAY ==
--- NOTE | ~2022-06-03 | XR_ITS ---
EXAMINATION: XR RIGHT SHOULDER XR CERVICAL SPINE CLINICAL INDICATION: Pain in right shoulder and pain in right arm. COMPARISON: Cervical spine 10/31/2014 TECHNIQUE: Right shoulder 3 views. Cervical spine 7 views. FINDINGS: RIGHT SHOULDER: There is no visible acute fracture, dislocation or subluxation. The glenohumeral joint space is normal. There is loss of right AC joint space with inferior spurring. No soft tissue abnormality seen. CERVICAL SPINE: There is normal cervical lordosis. The vertebral heights, alignment and disc heights are normal. The neural foramina are patent bilaterally on oblique views. No visible acute fracture, dislocation or lytic process seen. The prevertebral and paravertebral soft tissues are normal. XR/XR cervical spine 4V IMPRESSION: 1. Mild degenerative changes right AC joint with inferior spurring. No acute fracture or dislocation right shoulder. 2. Unremarkable cervical spine exam. 3. No major change from 2014.
--- NOTE | ~2022-06-03 | XR_ITS ---
EXAMINATION: XR RIGHT SHOULDER XR CERVICAL SPINE CLINICAL INDICATION: Pain in right shoulder and pain in right arm. COMPARISON: Cervical spine 10/31/2014 TECHNIQUE: Right shoulder 3 views. Cervical spine 7 views. FINDINGS: RIGHT SHOULDER: There is no visible acute fracture, dislocation or subluxation. The glenohumeral joint space is normal. There is loss of right AC joint space with inferior spurring. No soft tissue abnormality seen. CERVICAL SPINE: There is normal cervical lordosis. The vertebral heights, alignment and disc heights are normal. The neural foramina are patent bilaterally on oblique views. No visible acute fracture, dislocation or lytic process seen. The prevertebral and paravertebral soft tissues are normal. XR/XR shoulder RT min 2V IMPRESSION: 1. Mild degenerative changes right AC joint with inferior spurring. No acute fracture or dislocation right shoulder. 2. Unremarkable cervical spine exam. 3. No major change from 2014.
[2022-06-03 12:25] LABS: MANUAL DIFF FLAG NO
[2022-06-03 13:13] LABS: Basophils Percent Auto 0.3 % (0-2); Eosinophils Absolute Auto 0.1 X10*3/uL (0.0-0.4); Eosinophils Percent Auto 1.2 % (0-4); Hematocrit 35.3 % (37.0-47.0); Hemoglobin 11.1 g/dl (12.0-16.0); Imm Gran Abs Auto 0.02 X10*3/uL (0.00-0.03); Imm Gran Pct Auto 0.3 % (0.0-0.4); Lymphocytes Absolute Auto 2.4 X10*3/uL (1.2-4.9); Lymphocytes Percent Auto 36.1 % (20-40); Mean Corpuscular HGB Conc 31.4 g/dl (31.0-35.0); Mean Corpuscular Hemoglobin 27.5 pg (27.0-33.0); Mean Corpuscular Volume 87.6 fL (80.0-98.0); Mean Platelet Volume 10.6 fL (9.4-12.3); Monocytes Absolute Auto 0.4 X10*3/uL (0.1-1.2); Monocytes Percent Auto 6.3 % (2-11); Neutrophils Absolute Auto 3.6 x10*3/uL (2.0-8.3); Neutrophils Percent Auto 55.8 % (45-73); Platelet Count 362 X10*3/uL (160-400); Red Blood Count 4.03 X10*6/uL (4.20-5.50); Red Cell Distribution Width 14.5 % (11.0-16.0); White Blood Count 6.5 X10*3/uL (4.8-10.8)
[2022-06-03 13:48] LABS: Alanine Aminotransferase 11 U/L (0-31); Albumin Level 3.8 g/dL (3.5-5.0); Alkaline Phosphatase 92 U/L (39-117); Anion Gap 15 (12-20); Aspartate Amino Transferase 12 U/L (5-31); Bilirubin Total 0.8 mg/dL (0.0-1.0); Blood Urea Nitrogen 12 mg/dL (9-16); C Reactive Protein 0.55 mg/dL (< or = 0.50); Calcium 8.9 mg/dL (8.4-10.2); Carbon Dioxide 29 mmol/L (22-29); Chloride 100 mmol/L (96-108); Estimated Glomerular Filt Rate > 60; Glucose Random 356 mg/dL (60-115); Potassium 3.4 mmol/L (3.3-5.1); Rheumatoid Factor < 13.0 IU/mL (<15.0); Sodium 141 mmol/L (135-145); Total Protein 6.3 g/dL (6.5-8.0)
[2022-06-03 13:53] LABS: Erythrocyte Sedimentation Rate 53 MM/HR (0-20)
[2022-06-03 14:15] LABS: Folate 3.4 ng/mL (> or = 4.0); TSH reflex Free T4 1.62 uIU/mL (0.32-4.0); Vitamin B12 257 pg/mL (200-900); Vitamin D 25-OH Total 8.9 ng/mL (>30)
[2022-06-03 14:20] LABS: Hemoglobin A1c % > 14.0 %
[2022-06-06 10:48] LABS: Anti Nuclear Antibody Screen NEGATIVE (NEGATIVE)
[2022-06-08 01:53] LABS: CK-BB None Detected (None Detected); CK-MB 0 % (<5); CK-MM 100 % (95-100); Creatine Kinase,Total,Serum 28 U/L (29-143)
== END 2022-06-03 12:07 | disposition home or self-care (01) ==
LOC: HO.LAB 12:06
PROVIDERS: PCP Internal Medicine; Visit Provider Internal Medicine
DX: E55.9 Vitamin D deficiency, unspecified (principal); R20.0 Anesthesia of skin; E53.8 Deficiency of other specified B group vitamins; M25.511 Pain in right shoulder; M79.601 Pain in right arm; M79.604 Pain in right leg; M54.2 Cervicalgia; E11.9 Type 2 diabetes mellitus without complications; D68.59 Other primary thrombophilia
CPT/HCPCS: 36415; 72050; 73030; 80053; 82306; 82552; 82607; 82746; 83036; 84443; 85025; 85652; 86038; 86039; 86140; 86431

== ENCOUNTER → 2022-06-11 14:28 | Outpatient (BNVA) | payer OTHER, MEDICAID, SELFPAY | PROVIDERS: PCP Internal Medicine; Visit Provider Surgery | DX: K64.9 Unspecified hemorrhoids (principal) | CPT/HCPCS: 46600; 99212 ==

== ENCOUNTER → 2022-07-03 14:49 | Outpatient (BNVA) | payer OTHER, MEDICAID, SELFPAY | PROVIDERS: PCP Internal Medicine; Visit Provider Nurse Practitioner Family | DX: G25.5 Other chorea (principal) | CPT/HCPCS: 99202 ==

== ENCOUNTER → 2022-08-06 14:41 | Outpatient (BNVA) | payer OTHER, MEDICAID, SELFPAY | PROVIDERS: PCP Internal Medicine; Visit Provider Nurse Practitioner Family | DX: G25.5 Other chorea (principal); R25.9 Unspecified abnormal involuntary movements; Z79.899 Other long term (current) drug therapy | CPT/HCPCS: 99212 ==

== ENCOUNTER 2022-08-20 12:52 | Outpatient (REF) | payer OTHER, SELFPAY ==
--- NOTE | 2022-08-20 12:57 | EEG_ITS ---
FINDINGS: Waking background activity consists of a low voltage posterior 10 hertz alpha frequency that is seen symmetrically and attenuates well with eye opening on low voltage fast frequencies predominate anteriorly. Photic stimulation is without activation. No focal, lateralizing, or paroxysmal discharges were seen. IMPRESSION: This waking EEG is within normal limits. MD LADAN Edwards/LAKSHMI / [phone]
== END 2022-08-20 12:53 | disposition home or self-care (01) ==
LOC: HO.NEURO 12:52
PROVIDERS: PCP Internal Medicine; Visit Provider Nurse Practitioner Family
DX: G25.5 Other chorea (principal)
CPT/HCPCS: 95816

== ENCOUNTER 2022-09-09 10:23 | Outpatient (REF) | payer OTHER, MEDICAID, SELFPAY ==
--- NOTE | ~2022-09-09 | MR_ITS ---
EXAMINATION: MR BRAIN WITHOUT AND WITH CONTRAST CLINICAL INFORMATION: 66-year-old with abnormal involuntary movements. COMPARISON: None available. TECHNIQUE: Multiplanar, multisequence MRI of the brain was obtained before and after the intravenous administration of 10 mL Gadavist. Some limitations related to motion artifact. FINDINGS: BRAIN VOLUME: Mild generalized diffuse supratentorial parenchymal volume loss within the limitations of qualitative assessment. STRUCTURAL: No malformations. BRAIN AND MENINGES: DWI sequence demonstrates no restricted diffusion to suggest acute or subacute cerebral ischemia. Magnetic susceptibility weighted imaging was limited due to motion artifact. There are scattered foci of FLAIR/T2 signal hyperintensity in the subcortical white matter of both cerebral hemispheres predominantly in the frontal lobes bilaterally and posterior left temporal lobe which are nonspecific findings but could reflect chronic ischemic microangiopathy. There is deep periventricular T2 hyperintensity on the left which appears asymmetric associated with low T1 signal without abnormal enhancement, likely reflecting chronic ischemic changes. There is a zone of T2 hyperintensity in the left putamen associated with precontrast T1 hyperintensity and a small focus of cavitation. Given the appearance, this could reflect sequelae of toxic/metabolic injury. The findings are not typical for a lacunar infarct. There is also precontrast T1 shortening in the left caudate nucleus involving the caudate head which may reflect the same etiology. The left globus pallidus also is most likely involved. No definite mass lesions or pathologic intracranial enhancement are identified and there is no extra-axial fluid collection, space-occupying process or mass effect. There is a tiny developmental venous anomaly in the anterolateral left cerebellar hemisphere. VENTRICLES AND SUBARACHNOID SPACES: There is mild asymmetry of the lateral ventricles with the left being slightly larger than the right which may be developmental or related to asymmetric deep white matter volume loss on the left. No hydrocephalus. ORBITAL STRUCTURES: Right-sided lens extraction noted. Otherwise, the visualized orbital structures are grossly unremarkable within the limitations of the study. Limited assessment. VASCULAR: Signal voids are noted in the visualized major intracranial vessels. OSSEOUS STRUCTURES, SINUSES/MASTOIDS, EXTRACRANIAL SOFT TISSUES: Somewhat heterogeneous bone marrow signal intensity seen within the diploic space is a nonspecific finding. There is mild mucosal thickening in the ethmoid complex and maxillary sinuses. The visualized extracranial soft tissue structures appear grossly unremarkable. MR/MR head/brain wo/w con IMPRESSION: 1. Findings in the left putamen and left globus pallidus as described above which are nonspecific findings but could reflect sequelae of a toxic/metabolic injury. Correlation with CT scan may be of additional value to assess for calcification. 2. 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 3. No definite mass lesions or pathologic intracranial enhancement. 4. Some limitations related to motion artifact. 5. Nonspecific heterogeneous bone marrow signal intensity in the diploic space of the skull base which is a nonspecific finding. Correlate with CBC with differential and clinical history. Cannot exclude a marrow infiltrative process. 6. Mild paranasal sinus mucosal inflammatory changes.
== END 2022-09-09 10:24 | disposition home or self-care (01) ==
LOC: HO.MRI 10:23
PROVIDERS: PCP Internal Medicine; Visit Provider Nurse Practitioner Family
DX: R25.9 Unspecified abnormal involuntary movements (principal)
CPT/HCPCS: 70553; A9585

== ENCOUNTER → 2022-09-15 12:12 | Outpatient (BNVA) | payer OTHER, SELFPAY | PROVIDERS: PCP Internal Medicine; Visit Provider Internal Medicine | DX: E78.5 Hyperlipidemia, unspecified (principal); E11.9 Type 2 diabetes mellitus without complications | CPT/HCPCS: Q3014 ==

== ENCOUNTER 2022-10-16 12:55 | Outpatient (AMB) | payer OTHER, SELFPAY ==
--- NOTE | 2022-10-16 12:57 | MHC.OFFVIS ---
Intake Vital Signs 10/16/22 13:00 Weight 202 lb BP 140/90 H Blood Pressure Location Rt brachial Position Sitting Pulse 90 Pulse Source Pulse Oximeter Pulse Oximetry (%) 96 Oxygen Delivery Method Room Air Intake Visit Reasons: Cervicalgia/Pain R arm & Leg - Conf thru clearwave Intake Note: Pt presents today for fup for leg and arm pain , still no relief Allergies Penicillins [PENICILLINS] Allergy (Severe, Verified 10/16/22 13:03) SOB, rash, itching codeine [CODEINE] Allergy (Intermediate, Verified 10/16/22 13:03) RASH SOB oxycodone [From PERCOCET] Allergy (Intermediate, Verified 10/16/22 13:03) RASH SOB kiwi [KIWI] Allergy (Mild, Verified 10/16/22 13:03) ITCHY IF TOUCHES pineapple [PINEAPPLE] Allergy (Mild, Verified 10/16/22 13:03) ITCHY IF TOUCHES metformin Adverse Reaction (Intermediate, Verified 10/16/22 13:03) dizziness, blurred vision HPI HPI Comments History of Present Illness Details 66 y/o female patient presents for follow up of chorea. Pt reports that her EEG scheduled on August 20 and MRI of brain scheduled on Sep 09. Pt states that her right arm involuntary movement has been decreased a little with risperidone 0.5 BID. However, she still can't control her right hand movement, especially in the morning. She needs to hold her right hand to suppress the movement or use left hand to brush her teeth. And right upper extremity chorea can be decreased a little bit in the afternoon. Pt states that her BS still high, 201 this morning. She is followed by service dismantler and is on trulicity weekly and insulin injection 5 times a day. She also followed by diabetic education and dietitian to manage her blood sugar. MRI of brain report reviewed. 1. Findings in the left putamen and left globus pallidus as described above which are nonspecific findings but could reflect sequelae of a toxic/metabolic injury. Correlation with CT scan may be of additional value to assess for calcification. ? 2. 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 ? 3. No definite mass lesions or pathologic intracranial enhancement. ? 4. Some limitations related to motion artifact. ? 5. Nonspecific heterogeneous bone marrow signal intensity in the diploic space of the skull base which is a nonspecific finding. Correlate with CBC with differential and clinical history. Cannot exclude a marrow infiltrative process. ? 6. Mild paranasal sinus mucosal inflammatory changes. FOR[facility]LY [facility] Medical History Allergic rhinitis Arthritis Asthma Benign essential hypertension Bilateral lower extremity edema Bilateral primary osteoarthritis of knee Bleeding hemorrhoids Breast nodule Breast pain, right Calcific tendinitis of right hip Carpal tunnel syndrome, bilateral Diverticulosis Fibromyalgia GERD without esophagitis Goiter HLD (hyperlipidemia) Hx pulmonary embolism Internal and external hemorrhoids without complication Intertrigo Low back pain Mammogram abnormal Migraine Obesity (BMI 30-39.9) Overactive bladder Pure hypercholesterolemia Rectal bleed Rectal bleeding Right hip pain Right lumbar radiculopathy T2DM (type 2 diabetes mellitus) Varicose veins of both lower extremities with pain Vitamin B12 deficiency Vitamin D deficiency Surgical History History of colonoscopy History of incision and drainage History of mammogram History of tonsillectomy and adenoidectomy Hx of breast surgery Hx of cataract extraction Hx of cholecystectomy Hx of eye surgery Hx of tubal ligation Family History Father Hypertension Myocardial infarction Stroke Mother Hypertension Diabetes Social History Household Members: Spouse and Children Housing: House Are you a primary neonatal intensive care unit nurse to a significant other at home: No Do you presently have visiting nurse or other home services: No Alcohol intake: never Patient Tobacco Use Status: Never used Tobacco e-Cigarette/Vaping Use: Never Used Second Hand Smoke Exposure: No service: No Current occupational status: disabled Cognitive needs: No Hearing needs: No Vision needs: Yes Review of Systems Const All systems reviewed & are unremarkable except as noted in HPI and below Physical Exam Vital Signs: Last Vital Signs Pulse 90 10/16/22 13:00 BP 140/90 H 10/16/22 13:00 Pulse Ox 96 10/16/22 13:00 Oxygen Delivery Method Room Air 10/16/22 13:00 Const Orientation/consciousness: patient oriented x3 Neuro Other: right arm, leg and facial abnormal, involuntary and uncontrollable movement. 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 Code(s): R25.9 - Unspecified abnormal involuntary movements Plan Continue to take risperidone to 0.5 mg BID. Advised patient to undergo CT of brain to assess calcification. Advised patient to have consultation and assess for marrow infiltrative process. Continue to manage BS and increase daily exercise. Orders: Orders CT head/brain wo IV con Today E11.42 - Type 2 diabetes mellitus with diabetic polyneuropathy, G25.5 - Other chorea, R25.9 - Unspecified abnormal involuntary movements Coding Level of Care Code Est Pt Level 4 (97421) Diagnoses Chorea G25.5 Abnormal involuntary movement R25.9
[2022-10-16 13:00] VITALS: BP 140/90; PULSE 90; O2SAT 96
== END 2022-10-16 13:26 | disposition home or self-care (01) ==
PROVIDERS: Visit Provider Nurse Practitioner Family
DX: G25.5 Other chorea (principal)
CPT/HCPCS: 99214

== ENCOUNTER → 2022-10-16 12:55 | Outpatient (BNVA) | payer OTHER, SELFPAY | PROVIDERS: Visit Provider Nurse Practitioner Family | DX: G25.2 Other specified forms of tremor (principal); E11.42 Type 2 diabetes mellitus with diabetic polyneuropathy | CPT/HCPCS: 99212 ==

== ENCOUNTER 2023-01-13 12:54 | Outpatient (REF) | payer OTHER, SELFPAY ==
--- NOTE | ~2023-01-13 | MM_ITS ---
EXAMINATION: MM DIAGNOSTIC DIGITAL BREAST TOMOSYNTHESIS, BILATERAL CLINICAL INFORMATION: Patient presents for follow-up CALCIFICATIONS in the upper outer quadrant of the right breast. COMPARISON: Mammography: This study is compared with prior mammograms dating back to September 2017. TECHNIQUE: Digital breast tomosynthesis is performed in both the craniocaudal and mediolateral oblique views along with computer-aided detection (CAD). Synthesized 2D images are generated from the tomosynthesis. CC and lateral magnification imaging of the upper outer quadrant of the right breast. FINDINGS: There are scattered areas of fibroglandular density (ACR BI-RADS breast composition Category b). There are no significant masses, abnormal calcifications, or other abnormalities. The calcifications in the upper outer quadrant of the right breast a coarsening over time and are benign. MM/MM tomosynthesis diagnostic BI IMPRESSION: No mammographic signs of malignancy in either breast. Benign calcifications right breast. ASSESSMENT: BI-RADS BI-RADS 2 - Benign Findings RECOMMENDATION: 1 year F/U Results were provided to the patient at time of visit by the technologist. This patient's information was entered into a reminder system with a target due date for their next mammogram.
== END 2023-01-13 12:55 | disposition home or self-care (01) ==
LOC: HO.MAMMO 12:54
PROVIDERS: PCP Internal Medicine; Visit Provider Internal Medicine
DX: R92.1 Mammographic calcification found on diagnostic imaging of breast (principal)
CPT/HCPCS: 77062; 77066

== ENCOUNTER → 2023-01-13 13:00 | Outpatient (BNV) | payer OTHER, SELFPAY | PROVIDERS: PCP Internal Medicine; Visit Provider Radiology Diagnostic Radiology | DX: R92.1 Mammographic calcification found on diagnostic imaging of breast (principal) | CPT/HCPCS: 77062; 77066; G0279 ==

== ENCOUNTER 2023-01-20 12:52 | Outpatient (AMB) | payer OTHER, SELFPAY ==
[2023-01-20 13:40] VITALS: BP 142/86; PULSE 90; O2SAT 98; BMI 31.3
--- NOTE | 2023-01-20 13:40 | MHC.PC.OV ---
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 Required: No Accompanied by: Self / Same As Patient Allergies Penicillins [PENICILLINS] Allergy (Severe, Verified 01/26/23 02:32) SOB, rash, itching codeine [CODEINE] Allergy (Intermediate, Verified 01/26/23 02:32) RASH SOB oxycodone [From PERCOCET] Allergy (Intermediate, Verified 01/26/23 02:32) RASH SOB kiwi [KIWI] Allergy (Mild, Verified 01/26/23 02:32) ITCHY IF TOUCHES pineapple [PINEAPPLE] Allergy (Mild, Verified 01/26/23 02:32) ITCHY IF TOUCHES metformin Adverse Reaction (Intermediate, Verified 01/26/23 02:32) dizziness, blurred vision Medication List - Last Reconciled 01/26/23 by Erick Villanueva MD albuterol sulfate 2.5 mg (3 mL) continuous nebulization Q4-6H PRN amlodipine 10 mg PO DAILY ascorbate calcium (vitamin C) 500 mg PO DAILY aspirin (Adult Aspirin Regimen) 81 mg PO DAILY 90 days blood sugar diagnostic (OneTouch Ultra Test strips) 5 times per day blood sugar diagnostic (FreeStyle Lite Strips) As directed to test blood sugar three times a day blood-glucose meter (FreeStyle [place] Lite kit) As directed blood-glucose meter (OneTouch Ultra2 Meter kit) As directed 3x/day budesonide-formoterol 160-4.5 mcg/actuation (Symbicort) 2 puffs inhalation BID [id number]-[id number]-xpcg 50-325-40 mg 1 cap PO BID-TID PRN carvedilol (Coreg) 25 mg PO BID 90 days celecoxib (Celebrex) 100 mg PO BID PRN 30 days cholecalciferol (vitamin D3) 50 mcg PO DAILY 30 days [compression stockings Use daily as directed as needed, strength - medium; length - knee high ] cyanocobalamin (vitamin B-12) 1,000 mcg PO DAILY cyclobenzaprine 10 mg PO BEDTIME PRN 30 days desloratadine (Clarinex) 5 mg PO DAILY diclofenac sodium 1% 1 ea topical DAILY dulaglutide (Trulicity) 0.75 mg (0.5 mL) subcut QWEEK 30 days ezetimibe (Zetia) 10 mg PO DAILY fluticasone propionate 50 mcg/actuation 2 sprays intranasal DAILY folic acid 1 mg PO DAILY gabapentin 400 mg PO TID 30 days hydrochlorothiazide 25 mg PO DAILY hydrocortisone acetate (Anusol-HC) 25 mg [place] BID insulin aspart U-100 (Novolog FlexPen U-100 Insulin aspart) Take 2 to 10 units, dosed PER SLIDING SCALE, 4 times a day - with meals and at bedtime, subcutaneously; insulin glargine (Lantus Solostar U-100 Insulin) 30 units (0.3 mL) subcut QPM 30 days lancets 5 times per day lancets (FreeStyle Lancets) As directed test blood sugar three times a day [LIGHTWEIGHT WHEELCHAIR As directed] lorazepam (Ativan) 1 mg PO DAILY PRN losartan 100 mg PO DAILY 90 days menthol-zinc oxide 0.44-20.6 % (Calmoseptine) 1 appl topical QID PRN metformin ER 1,000 mg (2 x 500 mg) PO BID 90 days omeprazole 20 mg PO DAILY ondansetron 8 mg PO Q8H PRN pen needle, diabetic (BD Nella 2nd Gen Pen Needle) test 5 times per day pen needle, diabetic (BD Ultra-Fine Micro Pen Needle) 5 times a day as directed - Lantus QD and Humalog QID risperidone (Risperdal) 0.5 mg PO BID 30 days rosuvastatin 40 mg PO DAILY 90 days tizanidine 4 mg PO Q8H PRN tramadol 50 mg PO TID PRN 30 days Ventolin HFA 90 mcg/actuation (albuterol sulfate) 2 puffs inhalation Q4-6H PRN NS Tobacco use date assessed: 01/20/23 Fall risk assessment: No Falls in past year Last assessed Fall Risk: 01/20/23 Dental Screening Dental Screen Date: 01/20/23 Did you have a dental visit in the last 12 months?: Yes Did you have a dental problem in the last 6 months where you did not have access to dental care?: No Was dental information given to patient?: Patient has dentist HPI Involuntary muscle movements Rt arm HPI Details Patient comes in today for her follow up visit She continues to exhibit frequent involuntary movements and twitching of the muscles on her right side, mostly over the right side of her face and her right arm Patient had a brain MRI done back in August 2022 that revealed findings of chronic ischemic microangiopathic changes and findings in the basal ganglia suggestive of previous toxic metabolic injury - There is a zone of T2 hyperintensity in the left putamen associated with precontrast T1 hyperintensity and a small focus of cavitation that is possibly a sequelae of toxic/metabolic injury - the findings are not typical for a lacunar infarct. There is also precontrast T1 shortening in the left caudate nucleus involving the caudate head which may reflect the same etiology. The left globus pallidus also is most likely involved. No definite mass lesions or abnormal enhancements are seen. Correlation with CT scan may be of additional value to assess for calcification and she is advised to get a head CT done by Neurology but this has not yet been scheduled States that she is scheduled to see Neurology tomorrow for her follow-up appointment Patient states that her diffuse pain remains adequately controlled currently and that she feels okay otherwise She denies any headaches or dizziness Denies any chest pains, no increased shortness of breath No nausea / vomiting, no abdominal pain No change in bowel habits noted Needs a couple of her Rx refilled PFSH Medical History Bleeding hemorrhoids Carpal tunnel syndrome, bilateral Internal and external hemorrhoids without complication Diverticulosis Rectal bleed Varicose veins of both lower extremities with pain Hx pulmonary embolism Rectal bleeding Obesity (BMI 30-39.9) Overactive bladder Migraine GERD without esophagitis Allergic rhinitis Fibromyalgia Vitamin B12 deficiency Asthma Bilateral primary osteoarthritis of knee Pure hypercholesterolemia Benign essential hypertension Bilateral lower extremity edema Mammogram abnormal Intertrigo Breast nodule Goiter Vitamin D deficiency HLD (hyperlipidemia) T2DM (type 2 diabetes mellitus) Arthritis Breast pain, right Calcific tendinitis of right hip Right lumbar radiculopathy Right hip pain Low back pain Surgical History Hx of breast surgery History of colonoscopy History of mammogram History of incision and drainage Hx of cataract extraction Hx of cholecystectomy Hx of tubal ligation Hx of eye surgery History of tonsillectomy and adenoidectomy Family History Father Hypertension Myocardial infarction Stroke Mother Hypertension Diabetes Social History Household Members: Spouse and Children Housing: House Are you a primary manager of care to a significant other at home: No Do you presently have visiting nurse or other home services: No Alcohol intake: never Patient Tobacco Use Status: Never used Tobacco e-Cigarette/Vaping Use: Never Used Second Hand Smoke Exposure: No service: No Current occupational status: disabled Cognitive needs: No Hearing needs: No Vision needs: Yes Questionnaire PHQ-9 Over the last 2 weeks, how often have you been bothered by any of the following problems? Depression Screening Interpretation: Negative Depression Screening Done: Yes Source: Developed by Drs. Taj Willson, Elaine Tsai, Dyllan Singh and colleagues, with an educational cory from [employer]. Thrive Questionnaire Date Thrive assessed: 08/20/22 Currently or been in a relationship where the following occur: no concerns reported LELE-7 AMB Questionnaire LELE-7 Date LELE - 7 assessed: 08/20/22 Source: Developed by Drs. Taj Willson, Elaine Tsai, Dyllan Sinhg and colleagues, with an educational cory from [employer]. Review of Systems Const Denies chills, Reports fatigue, Denies fever(s) and Denies headache(s) ENT Denies dysphagia, Denies dizziness, Denies otalgia, Denies headache(s), Reports neck pain (increased lately), Denies odynophagia and Denies sore throat Card Denies chest pain, Denies rapid heart rate, Denies palpitations and Reports dyspnea on exertion (mild) Resp Denies cough and Reports dyspnea on exertion (mild) GI Denies abdominal pain, Denies dysphagia, Denies nausea, Denies odynophagia and Denies vomiting Musc Details: (+) pain over her entire right side, from the neck and shoulder down to the leg Reports arthralgias (involving both shoulders, right elbow and the right arm and right leg), Denies joint swelling, Reports neck pain (increased lately) and Reports numbness (on and off, over the fingers of the right hand) Neuro Details: (+) recurrent, involuntary tics involving primarily the right side of the face and right arm/hand Denies dizziness, Denies headache(s) and Reports numbness (on and off, over the fingers of the right hand) Psych Reports anxiety and Reports depression Endo Reports fatigue and Denies palpitations Physical exam (Primary Care) Vital Signs: Last Vital Signs Pulse 90 01/20/23 13:40 BP 142/86 H 01/20/23 13:40 Pulse Ox 98 01/20/23 13:40 Oxygen Delivery Method Room Air 01/20/23 13:40 BMI result Body Mass Index 31.3 Tobacco/Smoking Status: Tobacco use Status Tobacco use date assessed 01/20/23 01/20/23 13:42 Patient Tobacco Use Status Never used Tobacco 01/20/23 13:42 e-Cigarette/Vaping Use Never Used 01/20/23 13:42 Depression Screening Interpretation: Negative Thrive Assessment: Date of Thrive Assessment Date Thrive assessed 08/20/22 01/20/23 13:42 Currently or been in a relationship where the following occur: no concerns reported Const General: no acute distress and alert HENMT Throat: Yes posterior oropharynx normal and Yes tonsils normal (no TP congestion noted) Neck Neck: Yes no lymphadenopathy, Yes supple and Yes tender (over the cervical spine on exam) Resp Auscultation: clear to auscultation bilaterally, no rales and no wheezes Cardio Rate: regular rate Rhythm: regular rhythm Heart sounds: no murmurs GI Palpation (GI): Soft to palpation and nontender Auscultation: normal bowel sounds Back/Spine/Pelvis Cervical Spine: cervical muscular tenderness (bilateral) and Cervical spine tenderness Thoracic/Lumbar Spine: paraspinal muscle tenderness bilaterally in the upper thoracic and lumbar spinal tenderness Skin Rashes: no rashes Neuro Gait exam (Neuro): Antalgic gait present and Assistive device used (cane) Motor exam (neuro): Motor abnormalites present dystonia (involving mainly the right side of the face and the right arm) Extrem General: No clubbing, No cyanosis and Yes edema (1+ bipedal edema) Right upper extremity: shoulder/upper arm Details: tenderness Location: of the A-C joint; no swelling, elbow/forearm Details: tenderness Location: of the olecranon and of the lateral epicondyle and wrist Details: tenderness Location: of the volar wrist (on deep palpation) Right lower extremity: knee Details: tenderness and swelling (mild) Left lower extremity: knee Details: tenderness, swelling (mild) and crepitus Results AMB Hemoglobin A1c AMB Hemoglobin A1c 9.7 % Last Edit by Quintin Lauren on 01/20/23 15:33 Results Reviewed Results Reviewed: Laboratory Last Values Hgb A1c (Clinic) 9.7 % (4.0-6.0) H 01/20/23 15:17 Assessment and Plan Assessment & Plan (1) Dystonia: Code(s): G24.9 - Dystonia, unspecified Plan: Possibly due to recent injuries in the basal ganglia - ?etiology Brain MRI done back in August 2022 revealed findings of chronic ischemic microangiopathic changes as well as findings in the basal ganglia suggestive of previous toxic metabolic injury - There is a zone of T2 hyperintensity in the left putamen associated with precontrast T1 hyperintensity and a small focus of cavitation that is possibly a sequelae of toxic/metabolic injury - the findings are not typical for a lacunar infarct. There is also precontrast T1 shortening in the left caudate nucleus involving the caudate head which may reflect the same etiology. The left globus pallidus also is most likely involved. No definite mass lesions or abnormal enhancements are seen. Correlation with CT scan may be of additional value to assess for calcification and she is advised to get a head CT done by Neurology but this has not yet been scheduled States that she is scheduled to see Neurology tomorrow for her follow-up appointment but is frustrated at the lack of answers regarding her symptoms and is considering getting a second opinion Have advised patient to keep her follow up visit with neurology tomorrow and encouraged her to get her head CT done as soon as possible Will refer her, per request, to Dr. Dowling for a second opinion regarding her persistent right-sided dystonic movements (2) PMR (polymyalgia rheumatica): Code(s): M35.3 - Polymyalgia rheumatica Plan: Patient is currently OFF Prednisone; was previously on Prednisone at 60 mg QD and her diffuse pain have improved considerably with the Rx although she now has been dealing with persistent dystonic movements involving primarily her right side - right arm, right leg and right side of the face - for months now (3) Right shoulder pain: Code(s): M25.511 - Pain in right shoulder Qualifiers: Chronicity: unspecified Qualified Code(s): M25.511 - Pain in right shoulder Plan: Her recurrent shoulder symptoms were most likely related to her polymyalgia although her x-rays done recently did show some findings of AC arthritis in the joint States that her shoulder symptoms have improved with physical therapy Continue Tizanidine 4 mg Q HS (4) Numbness of right hand: Code(s): R20.0 - Anesthesia of skin Plan: Her symptoms seem to suggest carpal tunnel syndrome as Tinel's sign is positive on her exam; was advised that they may also be related to her polymyalgia May need NCV & EMG for further evaluation if her symptoms progress although her current dystonic movements on the right side makes getting an EMG and NCV impossible at this time Recommend that she continue to wear her wrist splints PRN for now for symptomatic relief (5) Right leg pain: Code(s): M79.604 - Pain in right leg Plan: May be likely related to her knee OA; had cortisone injections into her knees from [facility] a few months ago and she felt that the injections were the trigger(s) of most of her recent symptoms Advised that she will most likely need to continue to follow up with orthopedics for her knee issues but she would want to hold off on any further cortisone injections in the future (6) 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: Code(s): E11.9 - Type 2 diabetes mellitus without complications Qualifiers: 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 complication status: with hyperglycemia 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 use: without buttermilk drier operator use 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 type: type 2 Qualified Code(s): E11.65 - Type 2 diabetes mellitus with hyperglycemia Plan: In-office HgbA1c done today is at 9.7% (was at 9.6% a few months ago) - goal is <7.0% Reinforced diabetic diet Continue Metformin ER 1000 mg BID, Lantus 30 units Q HS, Trulicity 0.75 mg once a week and Humalog 2 to 10 units with meals and at bedtime per sliding scale for now Follow-up with endocrinology as scheduled (7) Pure hypercholesterolemia: Code(s): E78.00 - Pure hypercholesterolemia, unspecified Plan: Cautioned again that her cholesterol level back in December 2021 were very high and had increased further from previous - total cholesterol was at 293 mg/dl and LDL cholesterol was at 194 mg/dl; patient has not been able to get these rechecked since Reinforced low cholesterol diet Continue Rosuvastatin 40 mg QD and Ezetimibe 10 mg QD for now Will recheck her labs and fasting lipids in 3 months for follow up (8) Benign essential hypertension: Code(s): I10 - Essential (primary) hypertension Plan: Reinforced low-sodium diet - goal is systolic BP of at least 120-130 mm or less Continue Amlodipine 10 mg once a day, Clonidine 0.1 mg twice a day, Losartan 100 mg once a day, Hydrochlorothiazide 25 mg once a day in the morning and Labetalol 200 mg twice a day Follow up with cardiology as scheduled (9) Bilateral primary osteoarthritis of knee: Comment: X-rays of the knees done back on 03/15/2016 showed severe tricompartmental arthritis in both knees Symptoms have improved with cortisone injections from Orthopedics as needed Code(s): M17.0 - Bilateral primary osteoarthritis of knee Plan: Patient currently remains very limited with her activity and mobility due to her knee osteoarthritis Follow up with orthopedics at [facility] as scheduled (10) Personal history of pulmonary embolism: Code(s): Z86.711 - Personal history of pulmonary embolism Plan: Was taken off Coumadin and switched over to Apixaban 2.5 mg BID by hematology last year Patient has not had any recurrence of her embolism for years now Continue Apixaban 2.5 mg BID Follow up with hematology/oncology as scheduled (11) Carpal tunnel syndrome, bilateral: Code(s): G56.03 - Carpal tunnel syndrome, bilateral upper limbs Plan: EMG and NCV done back in 2014 revealed (+) moderate carpal tunnel syndrome on the right and mild carpal tunnel syndrome on the left side; EMG was normal Advised that she will need a repeat NCV & EMG if she feels that her symptoms are getting worse and if repeat NCV confirms progression and severity of her CTS, will need to consider referral to orthopedics for median nerve release Would not be able to get her EMG and NCV done at this time due to her current dystonic movements (12) Asthma: Code(s): J45.909 - Unspecified asthma, uncomplicated Qualifiers: Asthma complication type: uncomplicated Asthma persistence: persistent Asthma severity: moderate Qualified Code(s): J45.40 - Moderate persistent asthma, uncomplicated Plan: Stable currently Continue Symbicort 160-4.5 mcg 2 inhalations BID, ,Montelukast 10 mg QD and Ventolin HFA 2 inhalations every 6 hours PRN (13) GERD without esophagitis: Comment: Barium swallow done a couple of years ago showed (+) hiatal hernia with (+) significant acid reflux Code(s): K21.9 - Gastro-esophageal reflux disease without esophagitis Plan: Dietary restrictions reinforced Continue Omeprazole 20 mg 2 capsules QD (14) Vitamin D deficiency: Code(s): E55.9 - Vitamin D deficiency, unspecified Plan: Continue Vitamin D2 36573 units once a week (added by endocrinology) and Vitamin D3 2000 units daily (15) Fibromyalgia: Code(s): M79.7 - Fibromyalgia Plan: Follow up with Rheumatology as scheduled; can also see rheumatology regarding her PMR if she wants Patient again encouraged on regular exercise and physical activity to help manage her symptoms Continue Gabapentin 400 mg 3 times a day (16) Vitamin B12 deficiency: Code(s): E53.8 - Deficiency of other specified B group vitamins Plan: Continue Vitamin B12 injections 1000 mcg once a month and oral Vitamin B12 tablets 1000 mcg tablets once a day (17) Obesity (BMI 30-39.9): Code(s): E66.9 - Obesity, unspecified Plan: Reinforced diet; exercise and weight loss are unrealistic given patient's comorbidities and recent issues Plan Follow up in 3 months Orders: Orders Lipid Panel 3 Months E78.00 - Pure hypercholesterolemia, unspecified Comprehensive [place]. Panel Fast 3 Months E78.00 - Pure hypercholesterolemia, unspecified Microalbumin, Random (w Creat) 3 Months E11.9 - Type 2 diabetes mellitus without complications Vitamin D 25-OH Total 3 Months E55.9 - Vitamin D deficiency, unspecified Vitamin B12 and Folate 3 Months E53.8 - Deficiency of other specified B group vitamins Complete Blood Count Auto Diff 3 Months I10 - Essential (primary) hypertension Hemoglobin A1c 3 Months E11.9 - Type 2 diabetes mellitus without complications TSH reflex Free T4 3 Months E78.00 - Pure hypercholesterolemia, unspecified UA CC w/rflx Micro + Cult 3 Months R30.0 - Dysuria AMB Hemoglobin A1c 01/20/23 Z13.9 - Encounter for screening, unspecified Referrals Neurology Referral G24.9 - Dystonia, unspecified, R25.9 - Unspecified abnormal involuntary movements Medications: Refilled aspirin (Adult Aspirin Regimen) 81 mg PO DAILY 90 days 90 tabs 3RF lorazepam (Ativan) 1 mg PO DAILY PRN 30 tabs 0RF anxiety Coding Level of Care Code Est Pt Level 4 (38943) Diagnoses Dystonia G24.9 PMR (polymyalgia rheumatica) M35.3 Right shoulder pain, unspecified chronicity M25.511 Chronicity: unspecified Numbness of right hand R20.0 Right leg pain M79.604 Type 2 diabetes mellitus with hyperglycemia, without long-term current use of insulin E11.65 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 complication status: with hyperglycemia 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 longterm insulin use: without buttermilk drier operator use 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 type: type 2 Pure hypercholesterolemia E78.00 Benign essential hypertension I10 Bilateral primary osteoarthritis of knee M17.0 Personal history of pulmonary embolism Z86.711 Carpal tunnel syndrome, bilateral G56.03 Moderate persistent asthma without complication J45.40 Asthma complication type: uncomplicated Asthma persistence: persistent Asthma severity: moderate GERD without esophagitis K21.9 Vitamin D deficiency E55.9 Fibromyalgia M79.7 Vitamin B12 deficiency E53.8 Obesity (BMI 30-39.9) E66.9
== END 2023-01-20 15:18 | disposition home or self-care (01) ==
LOC: HO.HMGH 12:52
PROVIDERS: PCP Internal Medicine; Visit Provider Internal Medicine
DX: G24.9 Dystonia, unspecified (principal); E11.9 Type 2 diabetes mellitus without complications; M35.3 Polymyalgia rheumatica; M25.511 Pain in right shoulder; R20.0 Anesthesia of skin
CPT/HCPCS: 83036; 99214

== ENCOUNTER 2023-01-22 14:01 | Outpatient (AMB) | payer OTHER, SELFPAY ==
--- NOTE | 2023-01-22 14:02 | MHC.OFFVIS ---
Intake Vital Signs 01/22/23 14:05 Weight 200 lb 6 oz BP 130/88 Blood Pressure Location Rt brachial Position Sitting Pulse 78 Pulse Source Pulse Oximeter Pulse Oximetry (%) 98 Oxygen Delivery Method Room Air Intake Visit Reasons: 3m follow up Cervicalgia/Pain R arm & Leg Intake Note: Pt is here for fup still having consistent tremors Allergies Penicillins [PENICILLINS] Allergy (Severe, Verified 01/22/23 14:07) SOB, rash, itching codeine [CODEINE] Allergy (Intermediate, Verified 01/22/23 14:07) RASH SOB oxycodone [From PERCOCET] Allergy (Intermediate, Verified 01/22/23 14:07) RASH SOB kiwi [KIWI] Allergy (Mild, Verified 01/22/23 14:07) ITCHY IF TOUCHES pineapple [PINEAPPLE] Allergy (Mild, Verified 01/22/23 14:07) ITCHY IF TOUCHES metformin Adverse Reaction (Intermediate, Verified 01/22/23 14:07) dizziness, blurred vision HPI HPI Comments History of Present Illness Details 67 y/o female patient presents for follow up of chorea. Pt states that her right arm involuntary movement has been decreased a little with risperidone 0.5 BID. However, she still can't control her right hand movement. She needs to hold her right hand to suppress the movement or use left hand to brush her teeth. Pt states that her BS still high, 260s in the morning lately. She is followed by pharmacy technician assistant and is on trulicity weekly and insulin injection 4-[address] of brain is not done. [facility] Medical History Allergic rhinitis Arthritis Asthma Benign essential hypertension Bilateral lower extremity edema Bilateral primary osteoarthritis of knee Bleeding hemorrhoids Breast nodule Breast pain, right Calcific tendinitis of right hip Carpal tunnel syndrome, bilateral Diverticulosis Fibromyalgia GERD without esophagitis Goiter HLD (hyperlipidemia) Hx pulmonary embolism Internal and external hemorrhoids without complication Intertrigo Low back pain Mammogram abnormal Migraine Obesity (BMI 30-39.9) Overactive bladder Pure hypercholesterolemia Rectal bleed Rectal bleeding Right hip pain Right lumbar radiculopathy T2DM (type 2 diabetes mellitus) Varicose veins of both lower extremities with pain Vitamin B12 deficiency Vitamin D deficiency Surgical History Hx of breast surgery History of colonoscopy History of mammogram History of incision and drainage Hx of cataract extraction Hx of cholecystectomy Hx of tubal ligation Hx of eye surgery History of tonsillectomy and adenoidectomy Family History Father Hypertension Myocardial infarction Stroke Mother Hypertension Diabetes Social History Household Members: Spouse and Children Housing: House Are you a primary zoo caretaker to a significant other at home: No Do you presently have visiting nurse or other home services: No Alcohol intake: never Patient Tobacco Use Status: Never used Tobacco e-Cigarette/Vaping Use: Never Used Second Hand Smoke Exposure: No service: No Current occupational status: disabled Cognitive needs: No Hearing needs: No Vision needs: Yes Review of Systems Const All systems reviewed & are unremarkable except as noted in HPI and below Physical Exam Vital Signs: Last Vital Signs Pulse 78 01/22/23 14:05 BP 130/88 01/22/23 14:05 Pulse Ox 98 01/22/23 14:05 Oxygen Delivery Method Room Air 01/22/23 14:05 Const Orientation/consciousness: patient oriented x3 Neuro Other: right arm, leg and facial abnormal, involuntary and uncontrollable movement. 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 Code(s): R25.9 - Unspecified abnormal involuntary movements Plan Continue to take risperidone to 0.5 mg BID. Advised patient to undergo CT of brain to assess calcification. Continue to manage BS and increase daily exercise. Medications: Refilled risperidone (Risperdal) 0.5 mg PO BID 60 tabs 1RF 30 days Coding Level of Care Code Est Pt Level 3 (62320) Diagnoses Chorea G25.5 Abnormal involuntary movement R25.9
[2023-01-22 14:05] VITALS: BP 130/88; PULSE 78; O2SAT 98
== END 2023-01-22 14:30 | disposition home or self-care (01) ==
PROVIDERS: PCP Internal Medicine; Visit Provider Nurse Practitioner Family
DX: G25.5 Other chorea (principal)
CPT/HCPCS: 99213

== ENCOUNTER → 2023-01-22 14:01 | Outpatient (BNVA) | payer OTHER, MEDICAID, SELFPAY | PROVIDERS: PCP Internal Medicine; Visit Provider Nurse Practitioner Family | DX: G25.5 Other chorea (principal); R25.9 Unspecified abnormal involuntary movements | CPT/HCPCS: 99212 ==

== ENCOUNTER 2023-02-06 13:08 | Outpatient (RCR) | payer OTHER, MEDICAID, SELFPAY ==
[2023-02-06 13:24] VITALS: BP 164/80; PULSE 98
--- NOTE | 2023-02-06 17:31 | MHC.PT.EP ---
[facility] [place] Office [place] Office [place] Office [address] Yohannes Camacho [address] [phone] F: [phone] F: [phone] F: [phone] F: [phone] Physical Therapy Plan of Care Date of Evaluation: 02/06/23 Date of Surgery: Diagnosis: Pain in R shoulder, dystonia unspecified, unspecified abnormal involuntary movements, other sun, polymyalgia. Assessment: Pt is a 67 y/o female how is legally blind with Hx of metabolic stroke, PE, fibromyalgia, dystonia unspecified, unspecified abnormal involuntary movements, other sun, polymyalgia presents for eval and treat of pain in R shoulder resulting in decreased tolerance for restful nights' sleep, tolerating static postures, performing ADLs of dressing pullovers, dressing hair, performing heavy and light HH chores secondary to Hx of stroke in may affecting R side, uncontrolled athetoid movements if R UE, decreased R shoulder ROM, TTP of R shoulder, and pain. Pt is deemed an appropriate candidate to receive skilled PT services to address her physical impairments in order to improve her functional ability. Frequency and Duration: The patient will be seen 2 x/ kw x 4 wks. Short Term Goals: Initiate home program. Improve baseline R shoulder pain to < 5/10; initial: 8/10. [employer] Goals: I with home program. Improve SPADI outcome measure by at least 13 points. Decrease TTP of R shoulder from 3+ considerable to at most 1+ mild. Pt will report improved sleep to < 25% disturbed: initial: reports 50% disturbed. Treatment Plan: Modalities to reduce pain, spasms and effusion. Manual therapy to restore motion and function. Therapeutic exercise to improve strength and flexibility. Neuromuscular re-education for posture and balance. Therapeutic activities to return to functional activities of daily living. Electronically signed by: Rafi Denny PT. Please sign and return to therapist. Thank you for your referral.
--- NOTE | 2023-06-26 10:48 | MHC.PT.DC ---
[facility] [place] [facility] [place] [facility] [address] Yohannes Camacho [address] [facility] [phone] F: [phone] F: [phone] F: [phone] F: [phone] Physical Therapy Discharge Report Diagnosis: Pain in R shoulder, dystonia unspecified, unspecified abnormal involuntary movements, other sun, polymyalgia. Date of Surgery: Date of Evaluation: 02/06/23 Date of Discharge: 06/26/23 Treatments to Date: 1 Cancellations to Date: No Shows to Date: Discharge Status: Patient Elected to Stop Discharge Summary: Electronically signed by: Rafi Denny PT. Please sign and return to therapist. Thank you for your referral.
== END 2023-06-26 10:49 | disposition home or self-care (01) ==
LOC: HO.PT 13:08
PROVIDERS: PCP Internal Medicine; Visit Provider Internal Medicine
DX: M35.3 Polymyalgia rheumatica (principal); M25.511 Pain in right shoulder; G25.5 Other chorea; G24.9 Dystonia, unspecified
CPT/HCPCS: 97162

== ENCOUNTER 2023-04-28 13:12 | Outpatient (AMB) | payer OTHER, SELFPAY ==
[2023-04-28 13:13] VITALS: BP 156/82; PULSE 81; O2SAT 96; BMI 28.0
--- NOTE | 2023-04-28 13:13 | A.OFFPC_ITS ---
Vital Signs 04/28/23 13:13 Height 5 ft 7 in Weight 178 lb 9.191 oz BMI 28.0 BP 156/82 H Blood Pressure Location Lt brachial Position Sitting Pulse 81 Pulse Source Pulse Oximeter Pulse Oximetry (%) 96 Oxygen Delivery Method Room Air Intake Visit Reasons: 3 month f/u Social Work Nurse Required: No Accompanied by: Self / Same As Patient Allergies Penicillins [PENICILLINS] Allergy (Severe, Verified 04/28/23 14:08) SOB, rash, itching codeine [CODEINE] Allergy (Intermediate, Verified 04/28/23 14:08) RASH SOB oxycodone [From PERCOCET] Allergy (Intermediate, Verified 04/28/23 14:08) RASH SOB kiwi [KIWI] Allergy (Mild, Verified 04/28/23 14:08) ITCHY IF TOUCHES pineapple [PINEAPPLE] Allergy (Mild, Verified 04/28/23 14:08) ITCHY IF TOUCHES metformin Adverse Reaction (Intermediate, Verified 04/28/23 14:08) dizziness, blurred vision Medication List - Last Reconciled 04/28/23 by Erick Villanueva MD albuterol sulfate 2.5 mg (3 mL) continuous nebulization Q4-6H PRN amlodipine 10 mg PO DAILY ascorbate calcium (vitamin C) 500 mg PO DAILY aspirin (Adult Aspirin Regimen) 81 mg PO DAILY 90 days blood sugar diagnostic (OneTouch Ultra Test strips) 5 times per day blood sugar diagnostic (FreeStyle Lite Strips) As directed to test blood sugar three times a day blood-glucose meter (FreeStyle [place] Lite kit) As directed blood-glucose meter (OneTouch Ultra2 Meter kit) As directed 3x/day budesonide-formoterol 160-4.5 mcg/actuation (Symbicort) 2 puffs inhalation BID bxrgppofjd-aioktnaghhbhx-keeb 50-325-40 mg 1 cap PO BID-TID PRN carvedilol (Coreg) 25 mg PO BID 90 days celecoxib (Celebrex) 100 mg PO BID PRN 30 days cholecalciferol (vitamin D3) 50 mcg PO DAILY 30 days [compression stockings Use daily as directed as needed, strength - medium; length - knee high ] cyanocobalamin (vitamin B-12) 1,000 mcg PO DAILY cyclobenzaprine 10 mg PO BEDTIME PRN 30 days desloratadine (Clarinex) 5 mg PO DAILY diclofenac sodium 1% 1 ea topical DAILY dulaglutide (Trulicity) 0.75 mg (0.5 mL) subcut QWEEK 30 days ezetimibe (Zetia) 10 mg PO DAILY fluticasone propionate 50 mcg/actuation 2 sprays intranasal DAILY folic acid 1 mg PO DAILY gabapentin 400 mg PO TID 30 days hydrochlorothiazide 25 mg PO DAILY hydrocortisone acetate (Anusol-HC) 25 mg NM BID insulin aspart U-100 (Novolog FlexPen U-100 Insulin aspart) Take 2 to 10 units, dosed PER SLIDING SCALE, 4 times a day - with meals and at bedtime, subcutaneously; insulin glargine (Lantus Solostar U-100 Insulin) 30 units (0.3 mL) subcut QPM 30 days lancets 5 times per day lancets (FreeStyle Lancets) As directed test blood sugar three times a day [LIGHTWEIGHT WHEELCHAIR As directed] lorazepam (Ativan) 1 mg PO DAILY PRN losartan 100 mg PO DAILY 90 days menthol-zinc oxide 0.44-20.6 % (Calmoseptine) 1 appl topical QID PRN metformin ER 1,000 mg (2 x 500 mg) PO BID 90 days omeprazole 20 mg PO DAILY ondansetron 8 mg PO Q8H PRN pen needle, diabetic (BD Nella 2nd Gen Pen Needle) test 5 times per day pen needle, diabetic (BD Ultra-Fine Micro Pen Needle) 5 times a day as directed - Lantus QD and Humalog QID risperidone (Risperdal) 0.5 mg PO BID 30 days rosuvastatin 40 mg PO DAILY 90 days tizanidine 4 mg PO Q8H PRN tramadol 50 mg PO TID PRN 30 days Ventolin HFA 90 mcg/actuation (albuterol sulfate) 2 puffs inhalation Q4-6H PRN NS Tobacco use date assessed: 04/28/23 Fall risk assessment: No Falls in past year Last assessed Fall Risk: 04/28/23 Dental Screening Dental Screen Date: 04/28/23 Did you have a dental visit in the last 12 months?: Yes Did you have a dental problem in the last 6 months where you did not have access to dental care?: No Was dental information given to patient?: Patient has dentist HPI 3 month f/u HPI Details Patient comes in today for her follow up visit States that she still has the uncontrollable movements on her right side, especially on her face She was seen by [facility] back in January 2023 for follow up and was advised to just continue on her Risperidone and get her CT done, which she has not done yet She was also referred to Dr. Dowling for a second opinion regarding her symptoms but she still has not yet seen him - recalls that she was told to call their office to schedule her appt some time ago but she has not yet gotten around to it States that she has been feeling very thirsty often lately but is afraid that she will keep going to the bathroom if she keeps drinking She denies any headaches or dizziness Denies any chest pains, no increased SOB No nausea/vomiting, no abdominal pain No change in bowel habits noted Adds that her right knee is still bothering her and feels that the pain in her knee has gotten worse lately Was not able to get her follow up labs done yet - states that she will try to get these done tomorrow [facility] Medical History Bleeding hemorrhoids Carpal tunnel syndrome, bilateral Internal and external hemorrhoids without complication Diverticulosis Rectal bleed Varicose veins of both lower extremities with pain Hx pulmonary embolism Rectal bleeding Obesity (BMI 30-39.9) Overactive bladder Migraine GERD without esophagitis Allergic rhinitis Fibromyalgia Vitamin B12 deficiency Asthma Bilateral primary osteoarthritis of knee Pure hypercholesterolemia Benign essential hypertension Bilateral lower extremity edema Mammogram abnormal Intertrigo Breast nodule Goiter Vitamin D deficiency HLD (hyperlipidemia) T2DM (type 2 diabetes mellitus) Arthritis Breast pain, right Calcific tendinitis of right hip Right lumbar radiculopathy Right hip pain Low back pain Surgical History Hx of breast surgery History of colonoscopy History of mammogram History of incision and drainage Hx of cataract extraction Hx of cholecystectomy Hx of tubal ligation Hx of eye surgery History of tonsillectomy and adenoidectomy Family History Father Hypertension Myocardial infarction Stroke Mother Hypertension Diabetes Social History Household Members: Spouse and Children Housing: House Are you a primary insurance healthcare consultant to a significant other at home: No Do you presently have visiting nurse or other home services: No Alcohol intake: never Patient Tobacco Use Status: Never used Tobacco e-Cigarette/Vaping Use: Never Used Second Hand Smoke Exposure: No service: No Current occupational status: disabled Cognitive needs: No Hearing needs: No Vision needs: Yes Questionnaire PHQ-9 Over the last 2 weeks, how often have you been bothered by any of the following problems? 1. Little interest or pleasure in doing things: not at all 2. Feeling down, depressed, or hopeless: not at all 3. Trouble falling or staying asleep, or sleeping too much: not at all 4. Feeling tired or having little energy: not at all 5. Poor appetite or overeating: not at all 6. Feeling bad about yourself - or that you are a failure or have let yourself or your family down: not at all 7. Trouble concentrating on things, such as reading the newspaper or watching television: not at all 8. Moving or speaking so slowly that other people could have noticed. Or the opposite - being so fidgety or restless that you have been moving around a lot more than usual: not at all 9. Thoughts that you would be better off or of hurting yourself in some way: not at all Total score: 0 Depression Screening Interpretation: Negative Depression Screening Done: Yes 93514 - PHQ-9 Billing: Yes Source: Developed by Drs. Taj Willson, Elaine Tsai, Dyllan Singh and colleagues, with an educational cory from [employer]. Thrive Questionnaire Date Thrive assessed: 04/28/23 I am a: Patient What is your living situation today?: I have a steady place to live Within the past 12 months, did the food you bought not last and you didn't have the money to get more?: Never true Within the past 12 months, did you worry whether your food would run out before you got money to buy more?: Never true Do you have trouble paying for medicines?: No Do you have trouble getting transportation to medical appointments?: No Do you have trouble paying your heating and electricity bill?: No Do you have trouble taking care of your child, family member or friend?: No Do you have trouble with day-to-day activities such as bathing, preparing meals, shopping, managing finances, etc.?: No Are you currently unemployed and looking for a job?: No Are you interested in more education?: No Please select the resources that you would like help with: None Currently or been in a relationship where the following occur: no concerns reported THRIVE Score: 0 AUDIT C Alcohol Use Questionnaire (AUDIT-C) 1. How often do you have a drink containing alcohol?: Never 3. How often do you have six or more drinks on one occasion?: Never Total Score: 0 Score Reviewed/Action Taken: Yes LELE-7 AMB Questionnaire LELE-7 Date LELE - 7 assessed: 04/28/23 Feeling nervous, anxious, or on edge: 0 = Not at all Not being able to stop or control worryin = Not at all Worrying too much about different things: 0 = Not at all Trouble relaxin = Not at all Being so restless that it is hard to sit still: 0 = Not at all Becoming easily annoyed or irritable: 0 = Not at all Feeling afraid as if something awful might happen: 0 = Not at all Total LELE-7 score (0-4 normal; 5-9 mild; 10-14 moderate; 15-21 severe): 0 Source: Developed by Drs. Taj Willson, Elaine Tsai, Dyllan Singh and colleagues, with an educational cory from [employer]. Review of Systems Const Denies chills, Reports fatigue, Denies fever(s) and Denies headache(s) ENT Denies dysphagia, Denies dizziness, Denies otalgia, Denies headache(s), Reports neck pain (increased lately), Denies odynophagia and Denies sore throat Card Denies chest pain, Denies rapid heart rate, Denies palpitations and Reports dyspnea on exertion (mild) Resp Denies cough and Reports dyspnea on exertion (mild) GI Denies abdominal pain, Denies dysphagia, Denies nausea, Denies odynophagia and Denies vomiting Musc Details: (+) pain over her entire right side, from the neck and shoulder down to the leg Reports arthralgias (involving both shoulders, right elbow, arm and leg; R knee - increasing), Denies joint swelling, Reports neck pain (increased lately) and Reports numbness (on and off, over the fingers of the right hand) Skin/Breast Denies rash Neuro Details: (+) recurrent, involuntary tics involving primarily the right side of the face and right arm/hand Denies dizziness, Denies headache(s) and Reports numbness (on and off, over the fingers of the right hand) Psych Reports anxiety and Reports depression Endo Reports fatigue and Denies palpitations Physical exam (Primary Care) Vital Signs: Last Vital Signs Pulse 81 04/28/23 13:13 BP 156/82 H 04/28/23 13:13 Pulse Ox 96 04/28/23 13:13 Oxygen Delivery Method Room Air 04/28/23 13:13 BMI result Body Mass Index 28.0 Tobacco/Smoking Status: Tobacco use Status Tobacco use date assessed 04/28/23 04/28/23 13:18 Patient Tobacco Use Status Never used Tobacco 04/28/23 13:18 e-Cigarette/Vaping Use Never Used 04/28/23 13:18 PHQ-9: PHQ-9 Score PHQ-9: Total score 0 04/28/23 19:22 Depression Screening Interpretation: Negative Thrive Assessment: Date of Thrive Assessment Date Thrive assessed 04/28/23 04/28/23 13:18 Currently or been in a relationship where the following occur: no concerns reported Const General: no acute distress and alert HENMT Throat: Yes posterior oropharynx normal and Yes tonsils normal (no TP congestion noted) Neck Neck: Yes no lymphadenopathy, Yes supple and Yes tender (over the cervical spine on exam) Resp Auscultation: clear to auscultation bilaterally, no rales and no wheezes Cardio Rate: regular rate Rhythm: regular rhythm Heart sounds: no murmurs GI Palpation (GI): Soft to palpation and nontender Auscultation: normal bowel sounds Back/Spine/Pelvis Cervical Spine: cervical muscular tenderness (bilateral) and Cervical spine tenderness Thoracic/Lumbar Spine: paraspinal muscle tenderness bilaterally in the upper thoracic and lumbar spinal tenderness Skin Rashes: no rashes Neuro Gait exam (Neuro): Antalgic gait present and Assistive device used (cane) Motor exam (neuro): Motor abnormalites present dystonia (involving mainly the right side of the face and the right arm) Extrem General: No clubbing, No cyanosis and Yes edema (1+ bipedal edema) Right upper extremity: shoulder/upper arm Details: tenderness Location: of the A-C joint; no swelling, elbow/forearm Details: tenderness Location: of the olecranon and of the lateral epicondyle and wrist Details: tenderness Location: of the volar wrist (on deep palpation) Right lower extremity: knee Details: tenderness and swelling (mild) Left lower extremity: knee Details: tenderness, swelling (mild) and crepitus Results AMB Hemoglobin A1c AMB Hemoglobin A1c 14.0 % Last Edit by Quintin Lauren on 04/28/23 13:39 Results Reviewed Results Reviewed: Laboratory Last Values Hgb A1c (Clinic) 14.0 % (4.0-6.0) H 04/28/23 13:18 Assessment and Plan Assessment & Plan (1) Dystonia: Code(s): G24.9 - Dystonia, unspecified Plan: Discussed again that her symptoms may be due to the effects of her very high blood sugar over the past year (HgbA1c has been consistently >14%) Advised that the toxic effects of hyperglycemia on the brain can sometimes cause symptoms similar to what she has but her symptoms may also be possibly be due to recent injuries in the basal ganglia brought about by other causes - her etiology remains unclear at this time Brain MRI done back in August 2022 revealed findings of chronic ischemic microangiopathic changes as well as findings in the basal ganglia suggestive of previous toxic metabolic injury - There is a zone of T2 hyperintensity in the left putamen associated with precontrast T1 hyperintensity and a small focus of cavitation that is possibly a sequelae of toxic/metabolic injury - the findings are not typical for a lacunar infarct. There is also precontrast T1 shortening in the left caudate nucleus involving the caudate head which may reflect the same etiology. The left globus pallidus also is most likely involved. No definite mass lesions or abnormal enhancements are seen. Correlation with CT scan may be of additional value to assess for calcification, per radiology, and she is advised to get a head CT done by Neurology but this has not yet been scheduled or done I am concerned that she may have some heretofore undiagnosed progressive cerebrovascular condition or arteriopathy that caused her symptoms and may continue to do so I have referred her previously, per her request, to Dr. Dowling for a second opinion regarding her persistent right-sided dystonic symptoms States that she was instructed a while back to call Dr. Dowling's office to schedule her appt but she has not yet been able to do so and is encouraged to get this done L[facility] I have instructed her to continue on low dose Aspirin therapy (81 mg) daily in the meantime (2) PMR (polymyalgia rheumatica): Code(s): M35.3 - Polymyalgia rheumatica Plan: Patient is currently OFF Prednisone; was previously on Prednisone at 60 mg QD and her diffuse pain have improved considerably with the Rx although she now has been dealing with persistent dystonic movements involving primarily her right side - right arm, right leg and right side of the face - for months now (3) Right shoulder pain: Code(s): M25.511 - Pain in right shoulder Qualifiers: Chronicity: unspecified Qualified Code(s): M25.511 - Pain in right shoulder Plan: Her recurrent shoulder symptoms were most likely related to her polymyalgia although her x-rays done recently did show some findings of AC arthritis in the joint States that her shoulder symptoms have improved with physical therapy Continue Tizanidine 4 mg Q HS (4) Numbness of right hand: Code(s): R20.0 - Anesthesia of skin Plan: Her symptoms seem to suggest carpal tunnel syndrome as Tinel's sign is positive on her exam; was advised that they may also be related to her polymyalgia May need NCV & EMG for further evaluation if her symptoms progress although her current dystonic movements on the right side makes getting an EMG and NCV impossible at this time Recommend that she continue to wear her wrist splints PRN for now for symptomatic relief (5) Right leg pain: Code(s): M79.604 - Pain in right leg Plan: May be likely related to her knee OA; had cortisone injections into her knees from [facility] a few months ago and she felt that the injections were the trigger(s) of most of her recent symptoms Advised that she will most likely need to continue to follow up with orthopedics for her knee issues but she would want to hold off on any further cortisone injections in the future Will send her for repeat x-rays of the right knee for further evaluation of her recent increasing knee pain (6) 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: Code(s): E11.9 - Type 2 diabetes mellitus without complications Qualifiers: 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 complication status: with hyperglycemia 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 ad terminal makeup operator insulin use: without residential use 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 type: type 2 Qualified Code(s): E11.65 - Type 2 diabetes mellitus with hyperglycemia Plan: In-office HgbA1c done today is again >14.0% - goal is <7.0% Reinforced diabetic diet Continue Metformin ER 1000 mg BID, Lantus 30 units Q HS, Trulicity 0.75 mg once a week and Humalog 2 to 10 units with meals and at bedtime per sliding scale for now Will have her go and get her previously ordered labs done LIDIA (tomorrow morning) and will readjust or change her meds accordingly depending on how her labs come out Follow-up with endocrinology as scheduled (7) Pure hypercholesterolemia: Code(s): E78.00 - Pure hypercholesterolemia, unspecified Plan: Cautioned again that her cholesterol level back in December 2021 were very high and had increased further from previous - total cholesterol was at 293 mg/dl and LDL cholesterol was at 194 mg/dl; patient has not been able to get these rechecked since Should try to get her follow up labs done L[facility] Reinforced low cholesterol diet Continue Rosuvastatin 40 mg QD and Ezetimibe 10 mg QD for now Will recheck her labs and fasting lipids in 3 months for follow up (8) Benign essential hypertension: Code(s): I10 - Essential (primary) hypertension Plan: Reinforced low-sodium diet - goal is systolic BP of at least 120-130 mm or less Continue Amlodipine 10 mg once a day, Clonidine 0.1 mg twice a day, Losartan 100 mg once a day, Hydrochlorothiazide 25 mg once a day in the morning and Labetalol 200 mg twice a day Follow up with cardiology as scheduled (9) Bilateral primary osteoarthritis of knee: Comment: X-rays of the knees done back on 03/15/2016 showed severe tricompartmental arthritis in both knees Symptoms have improved with cortisone injections from Orthopedics as needed Code(s): M17.0 - Bilateral primary osteoarthritis of knee Plan: Patient currently remains very limited with her activity and mobility due to her knee osteoarthritis Follow up with orthopedics at [facility] as scheduled (10) Personal history of pulmonary embolism: Code(s): Z86.711 - Personal history of pulmonary embolism Plan: Was taken off Coumadin and switched over to Apixaban 2.5 mg BID by hematology last year Patient has not had any recurrence of her embolism for years now Continue Apixaban 2.5 mg BID Follow up with hematology/oncology as scheduled (11) Carpal tunnel syndrome, bilateral: Code(s): G56.03 - Carpal tunnel syndrome, bilateral upper limbs Plan: EMG and NCV done back in 2014 revealed (+) moderate carpal tunnel syndrome on the right and mild carpal tunnel syndrome on the left side; EMG was normal Advised that she will need a repeat NCV & EMG if she feels that her symptoms are getting worse and if repeat NCV confirms progression and severity of her CTS, will need to consider referral to orthopedics for median nerve release Would not be able to get her EMG and NCV done at this time due to her current dystonic movements (12) Asthma: Code(s): J45.909 - Unspecified asthma, uncomplicated Qualifiers: Asthma complication type: uncomplicated Asthma persistence: persistent Asthma severity: moderate Qualified Code(s): J45.40 - Moderate persistent as thma, uncomplicated Plan: Stable currently Continue Symbicort 160-4.5 mcg 2 inhalations BID, ,Montelukast 10 mg QD and Ventolin HFA 2 inhalations every 6 hours PRN (13) GERD without esophagitis: Comment: Barium swallow done a couple of years ago showed (+) hiatal hernia with (+) significant acid reflux Code(s): K21.9 - Gastro-esophageal reflux disease without esophagitis Plan: Dietary restrictions reinforced Continue Omeprazole 20 mg 2 capsules QD (14) Vitamin D deficiency: Code(s): E55.9 - Vitamin D deficiency, unspecified Plan: Continue Vitamin D2 14785 units once a week (added by endocrinology) and Vitamin D3 2000 units daily (15) Fibromyalgia: Code(s): M79.7 - Fibromyalgia Plan: Follow up with Rheumatology as scheduled; can also see rheumatology regarding her PMR if she wants Patient again encouraged on regular exercise and physical activity to help manage her symptoms Continue Gabapentin 400 mg 3 times a day (16) Vitamin B12 deficiency: Code(s): E53.8 - Deficiency of other specified B group vitamins Plan: Continue Vitamin B12 injections 1000 mcg once a month and oral Vitamin B12 tablets 1000 mcg tablets once a day (17) Obesity (BMI 30-39.9): Code(s): E66.9 - Obesity, unspecified Plan: Reinforced diet; exercise and weight loss are unrealistic given patient's comorbidities and recent issues Plan Follow up in 3 months Orders: Orders AMB Hemoglobin A1c 04/28/23 Z13.9 - Encounter for screening, unspecified Hemoglobin A1c 3 Months E11.9 - Type 2 diabetes mellitus without complications Complete Blood Count Auto Diff 3 Months D64.9 - Anemia, unspecified UA CC w/rflx Micro + Cult 3 Months R30.0 - Dysuria C Peptide Today E11.9 - Type 2 diabetes mellitus without complications Glutamic acid decarboxylase Ab Today E11.9 - Type 2 diabetes mellitus without complications XR knee RT 4V Today M25.561 - Pain in right knee Microalbumin, Random (w Creat) 3 Months E11.9 - Type 2 diabetes mellitus without complications Comprehensive [place]. Panel Fast 3 Months E78.00 - Pure hypercholesterolemia, unspecified Lipid Panel 3 Months E78.00 - Pure hypercholesterolemia, unspecified TSH reflex Free T4 3 Months E78.00 - Pure hypercholesterolemia, unspecified Vitamin D 25-OH Total 3 Months E55.9 - Vitamin D deficiency, unspecified Coding Level of Care Code Est Pt Level 4 (11664) Diagnoses Dystonia G24.9 PMR (polymyalgia rheumatica) M35.3 Right shoulder pain, unspecified chronicity M25.511 Chronicity: unspecified Numbness of right hand R20.0 Right leg pain M79.604 Type 2 diabetes mellitus with hyperglycemia, without long-term current use of insulin E11.65 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 complication status: with hyperglycemia 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 ad terminal makeup operator insulin use: without residential use 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 type: type 2 Pure hypercholesterolemia E78.00 Benign essential hypertension I10 Bilateral primary osteoarthritis of knee M17.0 Personal history of pulmonary embolism Z86.711 Carpal tunnel syndrome, bilateral G56.03 Moderate persistent asthma without complication J45.40 Asthma complication type: uncomplicated Asthma persistence: persistent Asthma severity: moderate GERD without esophagitis K21.9 Vitamin D deficiency E55.9 Fibromyalgia M79.7 Vitamin B12 deficiency E53.8 Obesity (BMI 30-39.9) E66.9
== END 2023-04-28 14:27 | disposition home or self-care (01) ==
PROVIDERS: PCP Internal Medicine; Visit Provider Internal Medicine
DX: E11.9 Type 2 diabetes mellitus without complications (principal)
CPT/HCPCS: 83036; 99214

== ENCOUNTER 2023-04-29 09:14 | Outpatient (REF) | payer OTHER, SELFPAY ==
--- NOTE | ~2023-04-29 | XR_ITS ---
EXAMINATION: XR KNEE, RIGHT CLINICAL INFORMATION: Pain. COMPARISON: None available. TECHNIQUE: AP, lateral, and both oblique views of the right knee. FINDINGS: There is bony demineralization. There is marked asymmetric narrowing of the medial joint space compartment. The lateral and patellofemoral joint space compartments are well-maintained. There is a moderate varus configuration. There is tricompartment peripheral osteophyte formation. No fracture or dislocation is seen. There is a small joint effusion. No foreign body is seen. There are femoral atherosclerotic calcifications. XR/XR knee RT 4V IMPRESSION: 1. There is tricompartment osteoarthritic change of the right knee, most pronounced of the lateral joint space compartment, where degenerative change is severe. 2. There is a moderate varus configuration. 3. There is a small joint effusion.
[2023-04-29 09:47] LABS: MANUAL DIFF FLAG NO
[2023-04-29 10:16] LABS: Basophils Percent Auto 0.4 % (0-2); Eosinophils Absolute Auto 0.1 X10*3/uL (0.0-0.4); Eosinophils Percent Auto 1.3 % (0-4); Hematocrit 36.5 % (37.0-47.0); Hemoglobin 11.6 g/dl (12.0-16.0); Imm Gran Abs Auto 0.01 X10*3/uL (0.00-0.03); Imm Gran Pct Auto 0.2 % (0.0-0.4); Lymphocytes Absolute Auto 2.3 X10*3/uL (1.2-4.9); Lymphocytes Percent Auto 42.4 % (20-40); Mean Corpuscular HGB Conc 31.8 g/dl (31.0-35.0); Mean Corpuscular Volume 81.8 fL (80.0-98.0); Mean Platelet Volume 11.1 fL (9.4-12.3); Monocytes Absolute Auto 0.4 X10*3/uL (0.1-1.2); Neutrophils Absolute Auto 2.6 x10*3/uL (2.0-8.3); Neutrophils Percent Auto 47.7 % (45-73); Platelet Count 329 X10*3/uL (160-400); Red Blood Count 4.46 X10*6/uL (4.20-5.50); Red Cell Distribution Width 14.6 % (11.0-16.0); White Blood Count 5.5 X10*3/uL (4.8-10.8)
[2023-04-29 10:29] LABS: Hemoglobin A1c % > 14.0 % (<6.0)
[2023-04-29 10:49] LABS: Appearance Urine Clear; Color Urine Yellow; Glucose Urine UA >=1000 mg/dL (Negative); Leukocyte Esterase Urine Negative (Negative); Nitrite Urine Negative (Negative); PH 5.5 (5.0-9.0); Specific Gravity - Urine >= 1.030 (1.005-1.025); UMIC TRIGGER UACC YES; Urine Blood Negative (Negative); Urine Ketones 15 mg/dL (Negative); Urine Protein Trace mg/dL (Neg-Trace)
[2023-04-29 10:58] LABS: Erythrocyte Sedimentation Rate 51 MM/HR (0-20)
[2023-04-29 11:05] LABS: Bacteria Urine None Seen (None Seen); Hyaline Casts Urine 0-2 /LPF (0-2); RBC Urine 0-2 /HPF (0-2); Squamous Epithelial Cell Urine 0-2 /HPF (0-2); WBC Urine 0-5 /HPF (0-5)
[2023-04-29 11:15] LABS: Alanine Aminotransferase 8 U/L (0-31); Albumin Level 3.9 g/dL (3.5-5.0); Alkaline Phosphatase 120 U/L (39-117); Anion Gap 14 (12-20); Aspartate Amino Transferase 10 U/L (5-31); Bilirubin Total 0.7 mg/dL (0.0-1.0); Blood Urea Nitrogen 9 mg/dL (9-16); C Reactive Protein 1.05 mg/dL (< or = 0.50); Calcium 9.2 mg/dL (8.4-10.2); Carbon Dioxide 27 mmol/L (22-29); Chloride 100 mmol/L (96-108); Cholesterol 288 mg/dL (<200); Estimated Glomerular Filt Rate > 60; Glucose Fasting 424 mg/dL (60-99); HDL Cholesterol 76 mg/dL (>40); LDL Cholesterol Calculated 191 mg/dL (<100); Sodium 138 mmol/L (135-145); Total Protein 7.2 g/dL (6.5-8.0); Triglycerides 108 mg/dL (<150)
[2023-04-29 11:19] LABS: TSH reflex Free T4 1.08 uIU/mL (0.32-4.0); Vitamin D 25-OH Total 11.4 ng/mL (>30)
[2023-04-29 11:31] LABS: Creatinine Urine 74.77 mg/dL; Microalbum/Creatinine Ratio Ur 109.6 ug/mg cr (<30)
[2023-04-29 11:59] LABS: Folate 5.7 ng/mL (> or = 4.0); Vitamin B12 < 148 pg/mL (200-900)
[2023-04-30 15:29] LABS: C Peptide 1.38 ng/mL (0.80-3.85)
[2023-05-03 15:24] LABS: Glutamic acid decarboxylase Ab <5 IU/mL (<5)
== END 2023-04-29 09:15 | disposition home or self-care (01) ==
LOC: HO.LAB 09:14
PROVIDERS: PCP Internal Medicine; Visit Provider Internal Medicine
DX: I10 Essential (primary) hypertension (principal); E11.9 Type 2 diabetes mellitus without complications; E78.00 Pure hypercholesterolemia, unspecified; E53.8 Deficiency of other specified B group vitamins; E55.9 Vitamin D deficiency, unspecified; M25.561 Pain in right knee; M79.7 Fibromyalgia; M35.3 Polymyalgia rheumatica
CPT/HCPCS: 36415; 73564; 80053; 80061; 81001; 82043; 82306; 82570; 82607; 82746; 83036; 84443; 84681; 85025; 85652; 86140; 86341

== ENCOUNTER 2023-05-06 13:55 | Outpatient (AMB) | payer OTHER, MEDICAID, SELFPAY ==
--- NOTE | 2023-05-06 13:59 | AM.OFFVISNUR ---
Intake Intake Visit Reasons: Vitamin B12 Allergies Penicillins [PENICILLINS] Allergy (Severe, Verified 04/28/23 14:08) SOB, rash, itching codeine [CODEINE] Allergy (Intermediate, Verified 04/28/23 14:08) RASH SOB oxycodone [From PERCOCET] Allergy (Intermediate, Verified 04/28/23 14:08) RASH SOB kiwi [KIWI] Allergy (Mild, Verified 04/28/23 14:08) ITCHY IF TOUCHES pineapple [PINEAPPLE] Allergy (Mild, Verified 04/28/23 14:08) ITCHY IF TOUCHES metformin Adverse Reaction (Intermediate, Verified 04/28/23 14:08) dizziness, blurred vision Office Meds cyanocobalamin (vitamin B-12) 1,000 mcg/mL injection solution Performing Provider: Erick Villanueva MD [facility] [place] Administered by: yTron Eden PA-C on 05/06/23 13:59 Dose Route Admin Location Dispensed Lot Number Expiration Date [facility] Soccer Coach 1,000 mcg IM 1 mL [id number] 01/22/24 7453-9727-95 [facility] Coding Assessment & Plan Assessment & Plan Orders: Orders AMB Vitamin B12 Injection Patient Supplied Today E53.8 - Deficiency of other specified B group vitamins
== END 2023-05-06 16:23 | disposition home or self-care (01) ==
PROVIDERS: PCP Internal Medicine; Visit Provider Internal Medicine
DX: E53.8 Deficiency of other specified B group vitamins (principal)
CPT/HCPCS: 96372; J3420

== ENCOUNTER 2023-05-08 13:34 | Outpatient (AMB) | payer OTHER, MEDICAID, SELFPAY ==
--- NOTE | 2023-05-08 13:25 | AM.OFFVISNUR ---
Intake Intake Visit Reasons: b12 injection Allergies Penicillins [PENICILLINS] Allergy (Severe, Verified 04/28/23 14:08) SOB, rash, itching codeine [CODEINE] Allergy (Intermediate, Verified 04/28/23 14:08) RASH SOB oxycodone [From PERCOCET] Allergy (Intermediate, Verified 04/28/23 14:08) RASH SOB kiwi [KIWI] Allergy (Mild, Verified 04/28/23 14:08) ITCHY IF TOUCHES pineapple [PINEAPPLE] Allergy (Mild, Verified 04/28/23 14:08) ITCHY IF TOUCHES metformin Adverse Reaction (Intermediate, Verified 04/28/23 14:08) dizziness, blurred vision Office Meds cyanocobalamin (vitamin B-12) 1,000 mcg/mL injection solution Performing Provider: Erick Villanueva MD [facility] Administered by: Elaina Cosby RN on 05/08/23 13:25 Dose Route Admin Location Dispensed Lot Number Expiration Date [facility] Television Technician 1,000 mcg IM right deltoid 1 mL [id number] 02/20/24 8930-5198-55 [facility] Coding Assessment & Plan Assessment & Plan Orders: Orders AMB Vitamin B12 Injection Patient Supplied Today E53.8 - Deficiency of other specified B group vitamins
== END 2023-05-08 14:33 | disposition home or self-care (01) ==
PROVIDERS: PCP Internal Medicine; Visit Provider Internal Medicine
DX: E53.8 Deficiency of other specified B group vitamins (principal)
CPT/HCPCS: 96372; J3420

== ENCOUNTER 2023-05-11 13:20 | Outpatient (AMB) | payer OTHER, MEDICAID, SELFPAY ==
--- NOTE | 2023-05-11 13:39 | AM.OFFVISNUR ---
Intake Intake Visit Reasons: B-12 Allergies Penicillins [PENICILLINS] Allergy (Severe, Verified 04/28/23 14:08) SOB, rash, itching codeine [CODEINE] Allergy (Intermediate, Verified 04/28/23 14:08) RASH SOB oxycodone [From PERCOCET] Allergy (Intermediate, Verified 04/28/23 14:08) RASH SOB kiwi [KIWI] Allergy (Mild, Verified 04/28/23 14:08) ITCHY IF TOUCHES pineapple [PINEAPPLE] Allergy (Mild, Verified 04/28/23 14:08) ITCHY IF TOUCHES metformin Adverse Reaction (Intermediate, Verified 04/28/23 14:08) dizziness, blurred vision Office Meds cyanocobalamin (vitamin B-12) 1,000 mcg/mL injection solution Performing Provider: Erick Villanueva MD [facility] Administered by: Elaina Cosby RN on 05/11/23 13:48 Dose Route Admin Location Dispensed Lot Number Expiration Date [facility] [employer] Executive Director 1,000 mcg IM 1 mL [id number] 02/20/24 7276-8243-24 [facility] Coding Assessment & Plan Assessment & Plan Orders: Orders AMB Vitamin B12 Injection Patient Supplied Today E53.8 - Deficiency of other specified B group vitamins
== END 2023-05-11 13:50 | disposition home or self-care (01) ==
LOC: HO.HMGH 13:20
PROVIDERS: PCP Internal Medicine; Visit Provider Internal Medicine
DX: E53.8 Deficiency of other specified B group vitamins (principal)
CPT/HCPCS: 96372; J3420

== ENCOUNTER 2023-05-12 13:14 | Outpatient (AMB) | payer OTHER, MEDICAID, SELFPAY ==
--- NOTE | 2023-05-12 13:31 | AM.OFFVISNUR ---
Intake Visit Reasons: B-12 Allergies Penicillins [PENICILLINS] Allergy (Severe, Verified 02/09/24 15:18) SOB, rash, itching codeine [CODEINE] Allergy (Intermediate, Verified 02/09/24 15:18) RASH SOB oxycodone [From PERCOCET] Allergy (Intermediate, Verified 02/09/24 15:18) RASH SOB kiwi [KIWI] Allergy (Mild, Verified 02/09/24 15:18) ITCHY IF TOUCHES pineapple [PINEAPPLE] Allergy (Mild, Verified 02/09/24 15:18) ITCHY IF TOUCHES metformin Adverse Reaction (Intermediate, Verified 02/09/24 15:18) dizziness, blurred vision Office Meds cyanocobalamin (vitamin B-12) 1,000 mcg/mL injection solution Performing Provider: Erick Villanueva MD [facility] Administered by: Ailyn Orlando RN on 05/12/23 13:31 Dose Route Admin Location Dispensed Lot Number Expiration Date [facility] Medical Equipment Sales 1,000 mcg IM right deltoid 1 mL [id number] 02/20/24 2627-7621-38 [facility] Assessment & Plan Assessment & Plan Orders: Orders AMB Vitamin B12 Injection Patient Supplied 05/12/23 E53.8 - Deficiency of other specified B group vitamins
== END 2023-05-12 13:34 | disposition home or self-care (01) ==
PROVIDERS: PCP Internal Medicine; Visit Provider Internal Medicine
DX: E53.8 Deficiency of other specified B group vitamins (principal)
CPT/HCPCS: 96372; J3420

== ENCOUNTER 2023-05-13 13:31 | Outpatient (AMB) | payer OTHER, MEDICAID, SELFPAY ==
--- NOTE | 2023-05-13 13:34 | AM.OFFVISNUR ---
Intake Intake Visit Reasons: b12 Allergies Penicillins [PENICILLINS] Allergy (Severe, Verified 04/28/23 14:08) SOB, rash, itching codeine [CODEINE] Allergy (Intermediate, Verified 04/28/23 14:08) RASH SOB oxycodone [From PERCOCET] Allergy (Intermediate, Verified 04/28/23 14:08) RASH SOB kiwi [KIWI] Allergy (Mild, Verified 04/28/23 14:08) ITCHY IF TOUCHES pineapple [PINEAPPLE] Allergy (Mild, Verified 04/28/23 14:08) ITCHY IF TOUCHES metformin Adverse Reaction (Intermediate, Verified 04/28/23 14:08) dizziness, blurred vision Office Meds cyanocobalamin (vitamin B-12) 1,000 mcg/mL injection solution Performing Provider: Tyron Eden PA-C Performing Location: [facility] Administered by: Tyron Eden PA-C on 05/13/23 13:35 Dose Route Admin Location Dispensed Lot Number Expiration Date [facility] Water Pump Installer 1,000 mcg IM 1 mL [id number] 01/22/24 5607-7415-06 [facility] Coding Assessment & Plan Assessment & Plan Orders: Orders AMB Vitamin B12 Injection Patient Supplied Today E53.8 - Deficiency of other specified B group vitamins
== END 2023-05-13 15:36 | disposition home or self-care (01) ==
PROVIDERS: PCP Internal Medicine; Visit Provider Physician Assistant
DX: E53.8 Deficiency of other specified B group vitamins (principal)
CPT/HCPCS: 96372; J3420

== ENCOUNTER 2023-05-14 13:18 | Outpatient (AMB) | payer OTHER, MEDICAID, SELFPAY ==
--- NOTE | 2023-05-14 13:35 | AM.OFFVISNUR ---
Intake Intake Visit Reasons: B12 Allergies Penicillins [PENICILLINS] Allergy (Severe, Verified 04/28/23 14:08) SOB, rash, itching codeine [CODEINE] Allergy (Intermediate, Verified 04/28/23 14:08) RASH SOB oxycodone [From PERCOCET] Allergy (Intermediate, Verified 04/28/23 14:08) RASH SOB kiwi [KIWI] Allergy (Mild, Verified 04/28/23 14:08) ITCHY IF TOUCHES pineapple [PINEAPPLE] Allergy (Mild, Verified 04/28/23 14:08) ITCHY IF TOUCHES metformin Adverse Reaction (Intermediate, Verified 04/28/23 14:08) dizziness, blurred vision Office Meds cyanocobalamin (vitamin B-12) 1,000 mcg/mL injection solution Performing Provider: Erick Villanueva MD [facility] Administered by: Elaina Cosby RN on 05/14/23 13:36 Dose Route Admin Location Dispensed Lot Number Expiration Date [facility] [employer] Cleaner 1,000 mcg IM 1 mL [id number] 02/20/24 Coding Assessment & Plan Assessment & Plan Orders: Orders AMB Vitamin B12 Injection Patient Supplied Today E53.8 - Deficiency of other specified B group vitamins
== END 2023-05-14 13:38 | disposition home or self-care (01) ==
PROVIDERS: PCP Internal Medicine; Visit Provider Internal Medicine
DX: E53.8 Deficiency of other specified B group vitamins (principal)
CPT/HCPCS: 96372; J3420

== ENCOUNTER 2023-05-19 13:34 | Outpatient (AMB) | payer OTHER, MEDICAID, SELFPAY ==
--- NOTE | 2023-05-19 13:47 | AM.OFFVISNUR ---
Intake Intake Visit Reasons: b-12 Shot Allergies Penicillins [PENICILLINS] Allergy (Severe, Verified 04/28/23 14:08) SOB, rash, itching codeine [CODEINE] Allergy (Intermediate, Verified 04/28/23 14:08) RASH SOB oxycodone [From PERCOCET] Allergy (Intermediate, Verified 04/28/23 14:08) RASH SOB kiwi [KIWI] Allergy (Mild, Verified 04/28/23 14:08) ITCHY IF TOUCHES pineapple [PINEAPPLE] Allergy (Mild, Verified 04/28/23 14:08) ITCHY IF TOUCHES metformin Adverse Reaction (Intermediate, Verified 04/28/23 14:08) dizziness, blurred vision Office Meds cyanocobalamin (vitamin B-12) 1,000 mcg/mL injection solution Performing Provider: Erick Villanueva MD Performing [facility] Administered by: Ailyn Orlando RN on 05/19/23 13:47 Dose Route Admin Location Dispensed Lot Number Expiration Date [facility] Pencil Inspector 1,000 mcg IM left deltoid 1 mL [id number] 02/20/24 [id number] [facility] Coding Assessment & Plan Assessment & Plan Orders: Orders AMB Vitamin B12 Injection Patient Supplied Today E53.8 - Deficiency of other specified B group vitamins
== END 2023-05-19 13:49 | disposition home or self-care (01) ==
PROVIDERS: PCP Internal Medicine; Visit Provider Internal Medicine
DX: E53.8 Deficiency of other specified B group vitamins (principal)
CPT/HCPCS: 96372; J3420

== ENCOUNTER 2023-05-26 13:44 | Inpatient (IN) | payer OTHER, MEDICAID, SELFPAY ==
--- NOTE | ~2023-05-26 | CT_ITS ---
EXAMINATION: CT HEAD WITHOUT CONTRAST (STROKE PROTOCOL) CLINICAL INFORMATION: Stroke protocol. Right sided hemiparesis. COMPARISON: MRI brain 09/09/2022 TECHNIQUE: Contiguous axial imaging was performed from the skull base to vertex without intravenous administration of contrast. This CT examination was performed using dose optimization techniques as appropriate, variously including the following: *Automated exposure control *Adjustment of mA and/or kV according to patient size (this includes techniques or standardized protocols for targeted exams where dose is matched to indication/reason for exam; i.e. extremities or head) *Use of iterative reconstruction technique DLP: 705 mGy-cm FINDINGS: There is old shape hypodensity left insula extending the left external capsule and lateral basal ganglia likely old infarction as noted on the previous MRI brain. There is no acute intra-axial, extra-axial bleed, masses or midline shift. There is no acute infarction evolution. There is no acute edema or midline shift. The buck to white matter differentiation is maintained normal. The major cerebral vasculature shows no hyperdense sign. The lateral ventricles are symmetrical in size and configuration with mild asymmetry with enlarged left lateral ventricle. Bone windows reveal no calvarial abnormality. The scalp soft tissues are normal. Bilateral paranasal sinuses and mastoid air cells are well-aerated. There is mild paradoxical right middle turbinate. CT/CT head for stroke IMPRESSION: No acute intracranial process seen. There is old left lateral basal ganglia, external capsule and medial insular old infarct. There is no associated edema. This critical result was discussed with Dr. Carolina Judge at 2:15 PM on 05/26/2023. It was ascertained that the content and urgency of the report was understood at the time of direct communication.
--- NOTE | ~2023-05-26 | MR_ITS ---
EXAMINATION: MR BRAIN WITHOUT CONTRAST CLINICAL INFORMATION: Right hemiparesis. COMPARISON: CT head from 05/26/2023. TECHNIQUE: MRI of the brain was obtained using routine sequences without contrast. FINDINGS: Small region of restricted diffusion within the deep white matter of the left frontal lobe. No focal restricted diffusion is demonstrated to suggest acute or subacute cerebral ischemia. Region of chronic encephalomalacia within the left lentiform nucleus with hemosiderin staining. No evidence of acute hemorrhagic products on heme-sensitive imaging. Scattered and partially confluent periventricular, deep white matter, and brainstem T2 FLAIR hyperintensities consistent with mild to moderate underlying microangiopathy. Ex vacuo dilatation of the left lateral ventricle. Otherwise, proportional prominence of the ventricles and sulcal spaces without evidence of obstructive hydrocephalus. No abnormal mass effect. No midline shift. Normal appearance of the pituitary gland. Normal positioning of the cerebellar tonsils. Normal arterial and venous vascular flow voids are present. Normal, homogeneous marrow signal. Mild mucosal thickening of the paranasal sinuses. No signal abnormalities within the mastoids. MR/MR head/brain wo con IMPRESSION: 1. Small acute white matter infarct within the deep white matter of the left frontal lobe. 2. Chronic encephalomalacia of the left lentiform nucleus. Mild to moderate underlying microangiopathy and generalized cerebral volume loss.
--- NOTE | ~2023-05-26 | CT_ITS ---
CT ANGIOGRAM NECK WITH CONTRAST CT ANGIOGRAM BRAIN WITH CONTRAST CLINICAL INFORMATION: Right-sided hemiparesis and slurred speech. COMPARISON: Head CT performed the same day. Brain MRI 09/09/2022. TECHNIQUE: Test bolus sequences followed by intravenous administration 70 mL of Omnipaque 350. Helical imaging was performed in the axial plane from the thoracic inlet to the skull vertex. Delayed postcontrast imaging of the head was also performed. The data was processed at the electro mechanical technologist workstation for generation of MIP sequences. Angled MIPs and volume rendered reformatted images were also generated at an offline 3D workstation under concurrent supervision. Stenoses are assessed in accordance with NASCET criteria unless otherwise indicated. This CT examination was performed using dose optimization techniques as appropriate, variously including the following: *Automated exposure control *Adjustment of mA and/or kV according to patient size (this includes techniques or standardized protocols for targeted exams where dose is matched to indication/reason for exam; i.e. extremities or head) *Use of iterative reconstruction technique FINDINGS: BRAIN: Similar-appearing chronic left striatocapsular infarct when compared to the brain MRI from 09/09/2022. If there is new neurologic deficit clinically, MRI would be more sensitive in assessment. There is no intracranial hemorrhage, hydrocephalus, extra-axial surface collection, midline shift, or other herniation pattern. The basilar cisterns are preserved. No significant soft tissue abnormality. No acute osseous abnormality. The paranasal sinuses and the mastoid air cells are well aerated.] Right lens extraction. CERVICAL SOFT TISSUES AND LUNG APICES: Imaged upper lungs are clear. There is multilevel cervical spondylosis. NECK CTA: [There is a classic 3 vessel configuration of the aortic arch. Proximal arch vessels are non-stenotic. The vertebral arteries are codominant. No significant ostial stenosis is visualized on either side. Both vertebral arteries are widely patent throughout their extracranial cervical course. Normal variant fenestration of the V3 segment of the right vertebral artery. Both common and internal carotid arteries are normal in course and caliber.] BRAIN CTA: There is atherosclerotic calcification throughout the carotid siphons bilaterally resulting in mild luminal narrowing. Severe stenosis involving the left P2/P3 posterior cerebral artery junction. Mild narrowing of the left M1 MCA segment. A 2.5 mm aneurysm projects inferomedially from the communicating segment of the left internal carotid artery. There is also a shallow possible 2 mm aneurysm along the undersurface of the communicating segment of the right internal carotid artery. Timing of the contrast bolus allows assessment of the major dural venous sinuses, which all opacify normally] CT/CT angio head neck stroke IMPRESSION: - No definite acute intracranial findings. Similar-appearing chronic left striatocapsular infarct when compared to the brain MRI from 09/09/2022. If there is new neurologic deficit clinically, MRI would be more sensitive in assessment. - No acute arterial occlusions intracranially. Severe stenosis involving the left P2/P3 posterior cerebral artery junction. No significant - A 2.5 mm aneurysm projects inferomedially from the communicating segment of the left internal carotid artery. There is also a shallow possible 2 mm aneurysm along the undersurface of the communicating segment of the right internal carotid artery. Findings discussed with Dr. Sumner at 2:40 PM on 05/26/2023.
[2023-05-26 13:49] VITALS: BP 119/55; PULSE 96; RESP 16; TEMP 36.1; O2SAT 100; BMI 33.4
--- NOTE | 2023-05-26 13:53 | ED.GENADULT ---
HPI - General Adult General Chief complaint: Neuro Symptoms/Deficit Stated complaint: R Leg Pain Fall 05/26/23 Time Seen by Provider: 05/26/23 13:57 Source: patient, family and old records reviewed Mode of arrival: ambulatory Limitations: no limitations History of Present Illness HPI narrative: 67 yo female with PMH of dystonia, movement disorder, DM, PE was on coumadin now off, GI bleed, asthma, GERD, HTN, HLD, comes in with family member - patient initially did not want to get medical treatment. Presents with R arm, leg weakness, slurring of speech, R lower facial droop and reports worsening vision in R eye. Symptoms started 10pm. Family member had to coax her to come. Denies trauma. complaint: R sided weakness Onset (ago): day(s) (10pm yesterday) Location: face, right, upper extremity and lower extremity Radiation: non-radiation Severity: moderate Relieving factors: none Exacerbating factors: movement Associated symptoms: headaches Treatments prior to arrival: none Related Data Home Medications Medication Instructions Recorded Confirmed amlodipine 10 mg tablet 10 mg PO DAILY 01/24/20 04/28/23 ascorbate calcium (vitamin C) 500 500 mg PO DAILY 01/24/20 04/28/23 mg tablet budesonide-formoterol HFA 160 2 puff inhalation BID 01/24/20 04/28/23 mcg-4.5 mcg/actuation aerosol inhaler (Symbicort) cyanocobalamin (vitamin B-12) 1,000 mcg PO DAILY 01/24/20 04/28/23 1,000 mcg capsule desloratadine 5 mg tablet 5 mg PO DAILY 01/24/20 04/28/23 (Clarinex) ezetimibe 10 mg tablet (Zetia) 10 mg PO DAILY 01/24/20 04/28/23 hydrochlorothiazide 25 mg tablet 25 mg PO DAILY 01/24/20 04/28/23 omeprazole 20 mg capsule,delayed 20 mg PO DAILY 01/24/20 04/28/23 release diclofenac sodium 1 % topical gel 1 ea topical DAILY 10/31/20 04/28/23 Previous Rx's Medication Instructions Recorded cyclobenzaprine 10 mg tablet 10 mg PO BEDTIME PRN muscle spasm 03/06/20 30 days #30 tabs dswiceypil-ggfjeyfzdobgy-htnijmvi 1 cap PO BID-TID PRN for migraine 04/03/20 50 mg-325 mg-40 mg capsule #60 caps compression stockings #2 ea 06/18/20 blood-glucose meter (FreeStyle #1 ea 08/16/20 [place] Lite kit) LIGHTWEIGHT WHEELCHAIR #1 ea 01/30/21 metformin 500 mg tablet,extended 1,000 mg (2 x 500 mg) PO BID 90 02/24/21 release 24 hr days #360 tabs folic acid 1 mg tablet 1 mg PO DAILY #90 tabs 02/25/21 blood sugar diagnostic (FreeStyle #100 ea 04/12/21 Lite Strips) lancets 28 gauge (FreeStyle #100 ea 04/12/21 Lancets) blood-glucose meter (OneTouch #1 ea 04/18/21 Ultra2 Meter kit) Ventolin HFA 90 mcg/actuation 2 puff inhalation Q4-6H PRN 07/16/21 aerosol inhaler (albuterol sulfate) Bronchospasm #18 grams carvedilol 25 mg tablet (Coreg) 25 mg PO BID 90 days #180 tabs 08/14/21 rosuvastatin 40 mg tablet 40 mg PO DAILY 90 days #90 tabs 01/01/22 hydrocortisone acetate 25 mg 25 mg VT BID #24 ea 05/15/22 rectal suppository (Anusol-HC) ondansetron 8 mg disintegrating 8 mg PO Q8H PRN nausea and 06/03/22 tablet vomiting #30 tabs menthol 0.44 %-zinc oxide 20.6 % 1 appl topical QID PRN perianal 06/11/22 topical ointment (Calmoseptine) skin irritation #113 grams tizanidine 4 mg tablet 4 mg PO Q8H PRN muscle spasms #30 06/20/22 tabs insulin glargine 100 unit/mL (3 30 unit (0.3 mL) subcut QPM 30 07/09/22 mL) subcutaneous pen (Lantus days #9 mL Solostar U-100 Insulin) insulin aspart U-100 100 unit/mL See Rx Instructions .Route 07/10/22 (3 mL) subcutaneous pen (Novolog .COMPLEX #15 mL FlexPen U-100 Insulin aspart) dulaglutide 0.75 mg/0.5 mL 0.75 mg (0.5 mL) subcut QWEEK 30 09/15/22 subcutaneous pen injector days #2.5 mL (Trulicity) albuterol sulfate 2.5 mg/3 mL 2.5 mg (3 mL) continuous 09/26/22 (0.083 %) solution for nebulization nebulization Q4-6H PRN Bronchospasm #180 mL blood sugar diagnostic (OneTouch #100 ea 09/26/22 Ultra Test strips) fluticasone propionate 50 2 spray intranasal DAILY #48 grams 09/26/22 mcg/actuation nasal spray,suspension lancets 33 gauge #100 ea 09/26/22 pen needle, diabetic 32 gauge x #150 ea 09/26/2203/26 (BD Ultra-Fine Micro Pen Needle) pen needle, diabetic 32 gauge x #1,200 ea 09/26/22 (BD Nella 2nd Gen Pen Needle) gabapentin 400 mg capsule 400 mg PO TID 30 days #90 caps 12/01/22 celecoxib 100 mg capsule (Celebrex) 100 mg PO BID PRN pain 30 days #60 03/11/23 caps risperidone 0.5 mg tablet 0.5 mg PO BID 30 days #60 tabs 03/11/23 (Risperdal) aspirin 81 mg tablet,delayed 81 mg PO DAILY 90 days #90 tabs 03/17/23 release (Adult Aspirin Regimen) tramadol 50 mg tablet 50 mg PO TID PRN pain 30 days #90 03/17/23 tabs lorazepam 1 mg tablet (Ativan) 1 mg PO DAILY PRN anxiety #30 tabs 03/26/23 losartan 100 mg tablet 100 mg PO DAILY 90 days #90 tabs 03/26/23 cholecalciferol (vitamin D3) 125 5,000 unit PO DAILY 30 days #30 04/29/23 mcg (5,000 unit) capsule caps cyanocobalamin (vitamin B-12) 1,000 mcg IM DAILY 1 week #7 mL 04/29/23 1,000 mcg/mL injection solution potassium chloride 20 mEq 20 meq PO DAILY 30 days #30 tabs 04/29/23 tablet,extended release(part/cryst) (Klor-Con M) Allergies Allergy/AdvReac Type Severity Reaction Status Date / Time Penicillins [PENICILLINS] Allergy Severe SOB, rash, Verified 04/28/23 14:08 itching codeine [CODEINE] Allergy Intermediate RASH SOB Verified 04/28/23 14:08 oxycodone [From PERCOCET] Allergy Intermediate RASH SOB Verified 04/28/23 14:08 kiwi [KIWI] Allergy Mild ITCHY IF Verified 04/28/23 14:08 TOUCHES pineapple [PINEAPPLE] Allergy Mild ITCHY IF Verified 04/28/23 14:08 TOUCHES metformin AdvReac Intermediate dizziness, Verified 04/28/23 14:08 blurred vision Review of Systems Review of Systems: Constitutional : No Fever, No Chills, No Fatigue ENT/Mouth : No sore throat, No Rhinorrhea Eyes: No Eye Pain, No Swelling, No Redness Cardiovascular : No Chest Pain, No SOB, No Dyspnea on Exertion Respiratory : No Cough, No Sputum Gastrointestinal : No Nausea, No Vomiting, No Diarrhea, No abdominal Pain Genitourinary : No Dysuria, No Urinary Frequency, No Hematuria, Musculoskeletal : No joint pain, No Myalgias, No Joint Swelling Skin : No Skin Lesions, No rash Neuro : pos Weakness, No Numbness, No Dizziness, positive Headache Psych : No Anxiety/Panic, No Depression All other systems reviewed and are negative [facility] Past Medical History Attestation statement: The following information was validated with the patient. Source: old records reviewed Medical History Bleeding hemorrhoids Carpal tunnel syndrome, bilateral Internal and external hemorrhoids without complication Diverticulosis Rectal bleed Varicose veins of both lower extremities with pain Hx pulmonary embolism Rectal bleeding Obesity (BMI 30-39.9) Overactive bladder Migraine GERD without esophagitis Allergic rhinitis Fibromyalgia Vitamin B12 deficiency Asthma Bilateral primary osteoarthritis of knee Pure hypercholesterolemia Benign essential hypertension Bilateral lower extremity edema Mammogram abnormal Intertrigo Breast nodule Goiter Vitamin D deficiency HLD (hyperlipidemia) T2DM (type 2 diabetes mellitus) Arthritis Breast pain, right Calcific tendinitis of right hip Right lumbar radiculopathy Right hip pain Low back pain Surgical History Hx of breast surgery History of colonoscopy History of mammogram History of incision and drainage Hx of cataract extraction Hx of cholecystectomy Hx of tubal ligation Hx of eye surgery History of tonsillectomy and adenoidectomy Family History Family History Father Hypertension Myocardial infarction Stroke Mother Hypertension Diabetes Social History Social History Household Members: Spouse and Children Housing: House Are you a primary intensive care medicine specialist to a significant other at home: No Do you presently have visiting nurse or other home services: No Alcohol intake: never Patient Tobacco Use Status: Never used Tobacco e-Cigarette/Vaping Use: Never Used Second Hand Smoke Exposure: No Advance Directives: No service: No Current occupational status: disabled Cognitive needs: No Hearing needs: No Vision needs: Yes Physical Exam ED Vital Signs: Vital Signs - 24 hr 05/26/23 13:49 05/26/23 14:00 Temperature 97 F Pulse Rate 96 85 Respiratory Rate 16 13 Blood Pressure 119/55 L 187/80 H Pulse Oximetry 100 95 Oxygen Delivery Method Room Air Room Air BMI result Body Mass Index 33.4 Appearance: Alert. Oriented X3. No acute distress. Eyes: Pupils equal, round and reactive to light. reports she has vision out of L temporal area ENT: Pharynx normal. Neck: Normal inspection. Neck supple. CVS: Normal heart rate and rhythm. Pulses normal. Respiratory: No respiratory distress. Breath sounds normal. Abdomen: Soft and nontender. Skin: Skin warm and dry. Normal skin color. Normal skin turgor. Extremities: No lower extremity edema. No calf ttp Neuro: Oriented X 3. R sided hemiparesis limited movement R hand, R leg sig weakness, R lower facial droop, mild slurred speech NIH Stroke Scale Internal: Initial- Upon Arrival Time: 13:48 Level of Consciousness: Alert Level of Consciousness Questions: Answers both questions correctly Level of Consciousness Commands: Performs both tasks correctly Best Gaze: Normal Visual: Partial hemianopia Facial Palsy: Minor paralyis Motor Arm (Right): Some effort against gravity Motor Arm (Left): No drift Motor Leg (Right): No effort against gravity Motor Leg (Left): No drift Limb Ataxia: Absent Sensory: Normal Best Language: No aphasia Dysarthia: Mild to moderate dysarthria Extinction and Inattention: No abnormality Score: 8 Course Course Course Narrative: RME- 67-year-old female with past medical history significant for CVA, not currently anticoagulated, She reports stopping warfarin 3 weeks ago presenting for evaluation of right-sided weakness. Patient reports feeling weakness in both of her legs last night around 10:00 p.m., she felt that her right leg was ?heavy. ? She also endorses weakness to her right arm but is able to move that somewhat. She does describe involuntary movements of her right arm. Per the patient's daughter the patient has some slurred speech which is appreciable. She also has some mild left facial droop. Plan for stroke workup in the patient be brought back as soon as possible. She is well outside the window for TNK/tPA treatment Medications Administered Discontinued Medications Generic Name Dose Route Start Last Admin Trade Name Ari PRN Reason Stop Dose Admin Iohexol 100 ml 05/26/23 14:13 05/26/23 14:13 Iohexol 350 Mg/Ml 100 Ml Infus..Btl IV 05/26/23 14:14 70 ml ONCE ONE Administration Medical Decision Making Medical Decision Making [facility] Narrative: 67 yo female with PMH of dystonia, movement disorder, DM, PE was on coumadin now off, GI bleed, asthma, GERD, HTN, HLD here with delayed presentation of R sided hemiparesis worsening vision changes, slurred speech at this time given window she is not a candidate for TNK will obtain labs, CT head/CTA stroke protocol, EKG, basic labs. No trauma reported. Differential Diagnosis Differential Diagnoses: The differential diagnosis associated with the presentation includes stroke, LVO Admission/Observation Consideration of admission/observation: Escalation of care including admission/observation considered will admit for stroke workup PO aspirin ordered initially 325mg ordered she then stated she was on lovenox so 81mg aspirin ordered but got confused and is actually on lantus so initial 325mg aspirin ordered Consult Healthcare Provider Management of the patient was discussed with: Hospitalist (will admit) and Behavioral Health Aide Lab Data [facility] Lab Attestation statement: I reviewed the patient's lab results. 05/26/23 14:55 05/26/23 14:55 Labs: Lab Results 05/26/23 05/26/23 Range/Units 14:12 14:55 WBC 6.7 (4.8-10.8) X10*3/uL RBC 4.13 L (4.20-5.50) X10*6/uL Hgb 10.9 L (12.0-16.0) g/dl Hct 34.0 L (37.0-47.0) % MCV 82.3 (80.0-98.0) fL MCH 26.4 L (27.0-33.0) pg MCHC 32.1 (31.0-35.0) g/dl RDW 14.6 (11.0-16.0) % Plt Count 273 (160-400) X10*3/uL MPV 11.0 (9.4-12.3) fL Immature Gran % (Auto) 0.2 (0.0-0.4) % Neut % (Auto) 66.8 (45-73) % Lymph % (Auto) 27.0 (20-40) % [place] % (Auto) 5.3 (2-11) % Eos % (Auto) 0.5 (0-4) % Baso % (Auto) 0.2 (0-2) % Lymph # (Auto) 1.8 (1.2-4.9) X10*3/uL [place] # (Auto) 0.4 (0.1-1.2) X10*3/uL Eos # (Auto) 0.0 (0.0-0.4) X10*3/uL Baso # (Auto) 0.0 (0.0-0.2) X10*3/uL Abs Immat Gran (auto) 0.01 (0.00-0.03) X10*3/uL Absolute Neuts (auto) 4.5 (2.0-8.3) x10*3/uL Absolute Nucleated RBC 0.000 (0.0-0.012) X10*3/uL Nucleated RBC % (auto) 0.0 (0.0-0.2) /100WBC POC Glucose 393 H* (60-115) mg/dL Independent Interpretation I performed an independent interpretation of an: EKG and CT Scan (no ICH, no LVO) Interpretation: Rate: 86 Rhythm: NSR [place]: normal Normal P waves. Normal SUSAN. Normal QRS complex. ST T wave : no ISSAC, inverted t waves I aVL, V3-V6 changed from 2014 qTC: 497 prior studies: changed from 2015 The study has been interpreted contemporaneously by me. . Radiology Impression Discussion of test interpretation with radiology: I discussed test interpretation with the radiologist and I have reviewed the radiologist's reading. Radiologist Impression: no ICH no LVO small aneurysm 240pm Independent Historian Clinical information obtained from an independent historian. History obtained from or confirmed by: EMS and Other (family) radiology 215pm - no ICH External Record Review External record reviewed: Inpatient record Critical Care Time Critical Care Time Critical Care Time: Yes Total Critical Care Time: 40 Attestation: review of records, family discussion, admit to hospital, stroke protocol I attest to this time spent taking care of the patient Discharge Plan Discharge Clinical Impression: Acute right-sided weakness, Acute hyperglycemia, ST segment changes on electrocardiography Patient Disposition: Admitted As Inpatient
--- NOTE | 2023-05-26 13:54 | ECG_ITS ---
Test Reason : STROKE SYMPTOMS Blood Pressure : / mmHG Vent. Rate : 086 BPM Atrial Rate : 086 BPM P-R Int : 138 ms QRS Dur : 084 ms QT Int : 416 ms P-R-T Axes : 041 014 125 degrees QTc Int : 497 ms Normal sinus rhythm Possible Left atrial enlargement ST & T wave abnormality, consider anterolateral ischemia Prolonged QT Abnormal ECG When compared with ECG of 20-NOV-2017 11:15, Non-specific change in ST segment in Anterior leads T wave inversion more evident in Anterolateral leads QT has lengthened Referred By: Carolina Sumner Electronically Signed By:Fred Messina
[2023-05-26 14:00] VITALS: BP 187/80; PULSE 85; RESP 13; O2SAT 95
[2023-05-26] MEDS: iohexoL 350 MG/ML 100 ML INFUS..BTL IV (14:13)
[2023-05-26 14:22] LABS: Glucose, Whole Blood 393 mg/dL (60-115)
[2023-05-26 15:00] LABS: MANUAL DIFF FLAG NO
[2023-05-26 15:03] LABS: Basophils Percent Auto 0.2 % (0-2); Eosinophils Percent Auto 0.5 % (0-4); Hemoglobin 10.9 g/dl (12.0-16.0); Imm Gran Abs Auto 0.01 X10*3/uL (0.00-0.03); Imm Gran Pct Auto 0.2 % (0.0-0.4); Lymphocytes Absolute Auto 1.8 X10*3/uL (1.2-4.9); Mean Corpuscular HGB Conc 32.1 g/dl (31.0-35.0); Mean Corpuscular Hemoglobin 26.4 pg (27.0-33.0); Mean Corpuscular Volume 82.3 fL (80.0-98.0); Monocytes Absolute Auto 0.4 X10*3/uL (0.1-1.2); Monocytes Percent Auto 5.3 % (2-11); Neutrophils Absolute Auto 4.5 x10*3/uL (2.0-8.3); Neutrophils Percent Auto 66.8 % (45-73); Platelet Count 273 X10*3/uL (160-400); Red Blood Count 4.13 X10*6/uL (4.20-5.50); Red Cell Distribution Width 14.6 % (11.0-16.0); White Blood Count 6.7 X10*3/uL (4.8-10.8)
[2023-05-26 15:09] LABS: INTERNATIONAL NORM RATIO 0.9 (0.9-1.1); Prothrombin Time 10.9 SEC (11.1-13.3)
[2023-05-26 15:12] LABS: Partial Thromboplastin Time 28.3 SEC (26.0-36.8)
[2023-05-26 15:18] LABS: Appearance Urine Clear; Color Urine Yellow; Glucose Urine UA >=1000 mg/dL (Negative); Leukocyte Esterase Urine Negative (Negative); Nitrite Urine Negative (Negative); Specific Gravity - Urine >= 1.030 (1.005-1.025); UMIC TRIGGER UACC YES; Urine Blood Negative (Negative); Urine Ketones Negative (Negative); Urine Protein Negative (Neg-Trace)
[2023-05-26 15:22] LABS: Cholesterol 275 mg/dL (<200); HDL Cholesterol 80 mg/dL (>40); LDL Cholesterol Calculated 169 mg/dL (<100); Triglycerides 132 mg/dL (<150)
[2023-05-26 15:26] LABS: COVID-19 Test Negative (Negative); IDNOW Serial# 152EDE1D
[2023-05-26 15:28] LABS: Bacteria Urine None Seen (None Seen); Hyaline Casts Urine 0-2 /LPF (0-2); RBC Urine 0-2 /HPF (0-2); Squamous Epithelial Cell Urine 0-2 /HPF (0-2); WBC Urine 0-5 /HPF (0-5)
[2023-05-26 15:28] LABS: Amphetamine Screen Urine Not Detected (Not Detect); Barbiturates, Urine Not Detected (Not Detect); Benzodiazepines Screen Urine Not Detected (Not Detect); Cannabinoid Screen Urine Not Detected (Not Detect); Cocaine Screen Urine Not Detected (Not Detect); Fentanyl, urine Not Detected (Not Detect); Opiate Screen Urine Not Detected (Not Detect); Phencyclidine Screen Urine Not Detected (Not Detect)
[2023-05-26 15:37] LABS: Alanine Aminotransferase 7 U/L (0-31); Albumin Level 3.7 g/dL (3.5-5.0); Alkaline Phosphatase 114 U/L (39-117); Anion Gap 10 (12-20); Aspartate Amino Transferase 8 U/L (5-31); Bilirubin Direct 0.2 mg/dL (0.0-0.5); Bilirubin Total 0.7 mg/dL (0.0-1.0); Blood Urea Nitrogen 8 mg/dL (9-16); Calcium 9.3 mg/dL (8.4-10.2); Carbon Dioxide 31 mmol/L (22-29); Chloride 102 mmol/L (96-108); Creatinine Clr Calc Pharmacy 76.6; Estimated Glomerular Filt Rate > 60; Ethanol < 10 mg/dL; Glucose Random 421 mg/dL (60-115); Lipase 27 U/L (8-78); Magnesium 1.7 mg/dL (1.6-2.6); Potassium 3.5 mmol/L (3.3-5.1); Sodium 139 mmol/L (135-145); Total Protein 6.8 g/dL (6.5-8.0)
[2023-05-26 15:38] LABS: Troponin-I High Sensitivity < 2.7 ng/L (<3.5-17.0)
--- NOTE | 2023-05-26 15:56 | MHC.STROKE ---
Notified by provider of stroke protocol. Arrived to ED to see patient and spoke with both the patient and her daughter. Pt is awake, alert and oriented x 3. Skin warm and dry. Resp unlabored. Speech is clear and patient answers questions appropriately. smile symmetrical, tongue midline. Pt reports that she has difficulty with vision in her right eye at baseline. Right sided arm drift and right leg weakness noted. Hand grasp weak on the right. Pt reports that she was at school last night until 2200 and got home around 2230. She reports that she almost fell getting through the door. Pt reports that she took a short nap and around 0200 she decided to take a shower. Patient reports that her right leg felt very heavy and she had trouble getting into the tub and fell. Pt states that her had to come and help her. Pt denies hitting her head. Denies LOC and denies headache. Pt arrived to ED this afternoon after being persuaded by her daughter to come. She continues with weakness to the right side. Stroke education provided. Swallow screen to be completed. Family at bedside. Patient updated on plan of care.
[2023-05-26] MEDS: Aspirin 325 MG TABLET PO (15:59)
[2023-05-26] MEDS: Insulin Regular, Human 100 UNIT/ML 3 ML VIAL IVPUSH (16:02)
--- NOTE | 2023-05-26 16:25 | PM.IMHP ---
History of Present Illness Date of Service: 05/26/23 Chief Complaint: right hemiparesis 67F PMH DM, cva with residual mild right hemiparesis, dystonia, movement disorder, PMR, htn, history of pe no longer on AC, b12 deficiency, mild intermittent asthma, hld, presented with right hemiparesis. At baseline patient does have mild right hemiparesis from stroke from May 2022. However, on day prior to presentation patient noted sudden onset of worsening right sided weakness with tingling and slurred speech. Patient went home. Not evening in the middle of the night had worsening of her symptoms unable to ambulate. Patient was reluctant to come to the hospital until family convinced her to come. She arrived outside thrombolytic window. CTA head and neck did not show acute stroke or large vessel occlusion, did have incidental 2.5 mm aneurysm. Patient continues to have right hemiparesis worsened baseline. Review of Systems Review of Systems: Yes all other systems are reviewed and are negative [facility] Medical History Bleeding hemorrhoids Carpal tunnel syndrome, bilateral Internal and external hemorrhoids without complication Diverticulosis Rectal bleed Varicose veins of both lower extremities with pain Hx pulmonary embolism Rectal bleeding Obesity (BMI 30-39.9) Overactive bladder Migraine GERD without esophagitis Allergic rhinitis Fibromyalgia Vitamin B12 deficiency Asthma Bilateral primary osteoarthritis of knee Pure hypercholesterolemia Benign essential hypertension Bilateral lower extremity edema Mammogram abnormal Intertrigo Breast nodule Goiter Vitamin D deficiency HLD (hyperlipidemia) T2DM (type 2 diabetes mellitus) Arthritis Breast pain, right Calcific tendinitis of right hip Right lumbar radiculopathy Right hip pain Low back pain Family History Father Hypertension Myocardial infarction Stroke Mother Hypertension Diabetes Surgical History Hx of breast surgery History of colonoscopy History of mammogram History of incision and drainage Hx of cataract extraction Hx of cholecystectomy Hx of tubal ligation Hx of eye surgery History of tonsillectomy and adenoidectomy Social History Household Members: Spouse and Children Housing: House Are you a primary career services representative to a significant other at home: No Do you presently have visiting nurse or other home services: No Alcohol intake: never Patient Tobacco Use Status: Never used Tobacco e-Cigarette/Vaping Use: Never Used Second Hand Smoke Exposure: No Advance Directives: No service: No Current occupational status: disabled Cognitive needs: No Hearing needs: No Vision needs: Yes Meds Allergies Allergy/AdvReac Type Severity Reaction Status Date / Time Penicillins [PENICILLINS] Allergy Severe SOB, rash, Verified 04/28/23 14:08 itching codeine [CODEINE] Allergy Intermediate RASH SOB Verified 04/28/23 14:08 oxycodone [From PERCOCET] Allergy Intermediate RASH SOB Verified 04/28/23 14:08 kiwi [KIWI] Allergy Mild ITCHY IF Verified 04/28/23 14:08 TOUCHES pineapple [PINEAPPLE] Allergy Mild ITCHY IF Verified 04/28/23 14:08 TOUCHES metformin AdvReac Intermediate dizziness, Verified 04/28/23 14:08 blurred vision Active Medications: Current Medications Acetaminophen (Acetaminophen 325 Mg Tablet) 650 mg PO Q6H PRN PRN Reason: Pain, Mild (Pain Scale 1-3) Aspirin (Aspirin Enteric Coated 81 Mg Tablet.Dr) 81 mg PO DAILY KENDAL Atorvastatin Calcium (Atorvastatin Calcium 80 Mg Tablet) 80 mg PO BEDTIME KENDAL Ondansetron HCl (Ondansetron Hcl 4 Mg/2 Ml Vial) 4 mg IVPUSH Q8H PRN PRN Reason: Nausea and Vomiting Home Medications Medication Instructions Recorded Confirmed Last Taken Type amlodipine 10 mg tablet 10 mg PO DAILY 01/24/20 04/28/23 Unknown History ascorbate calcium (vitamin C) 500 500 mg PO DAILY 01/24/20 04/28/23 Unknown History mg tablet budesonide-formoterol HFA 160 2 puff inhalation BID 01/24/20 04/28/23 Unknown History mcg-4.5 mcg/actuation aerosol inhaler (Symbicort) cyanocobalamin (vitamin B-12) 1,000 mcg PO DAILY 01/24/20 04/28/23 Unknown History 1,000 mcg capsule desloratadine 5 mg tablet 5 mg PO DAILY 01/24/20 04/28/23 Unknown History (Clarinex) ezetimibe 10 mg tablet (Zetia) 10 mg PO DAILY 01/24/20 04/28/23 Unknown History hydrochlorothiazide 25 mg tablet 25 mg PO DAILY 01/24/20 04/28/23 Unknown History omeprazole 20 mg capsule,delayed 20 mg PO DAILY 01/24/20 04/28/23 Unknown History release diclofenac sodium 1 % topical gel 1 ea topical DAILY 10/31/20 04/28/23 Unknown History Physical Exam Vital Signs and Narrative: Vital Signs: Last Vital Signs Temp 97 F 05/26/23 13:49 Pulse 85 05/26/23 14:00 Resp 13 05/26/23 14:00 BP 187/80 H 05/26/23 14:00 Pulse Ox 95 05/26/23 14:00 O2 Del Method Room Air 05/26/23 14:00 BMI result Body Mass Index 33.4 General: AO X 3, no acute distress Resp: CTA bilateral, no accessory muscles used CVS: S1,S2,RRR GI: soft, non tender, non distended Neuro: rUE 3/5, RLE 2+/5, alert Psych: appropriate affect, appropriate insight Results Labs 05/26/23 14:55 05/26/23 14:55 Labs: Laboratory Results - last 24 hr 05/26/23 05/26/23 05/26/23 14:12 14:55 15:02 MCV 82.3 MCH 26.4 L MCHC 32.1 RDW 14.6 Plt Count 273 MPV 11.0 Immature Gran % (Auto) 0.2 Neut % (Auto) 66.8 Lymph % (Auto) 27.0 [place] % (Auto) 5.3 Eos % (Auto) 0.5 Baso % (Auto) 0.2 Lymph # (Auto) 1.8 [place] # (Auto) 0.4 Eos # (Auto) 0.0 Baso # (Auto) 0.0 Abs Immat Gran (auto) 0.01 Absolute Neuts (auto) 4.5 Absolute Nucleated RBC 0.000 Nucleated RBC % (auto) 0.0 PT 10.9 L INR 0.9 D APTT 28.3 Anion Gap 10 L Estim Creat Clear Calc 76.6 Estimated GFR > 60 POC Glucose 393 H* Random Glucose 421 H* Calcium 9.3 Magnesium 1.7 Total Bilirubin 0.7 Direct Bilirubin 0.2 AST 8 ALT 7 Alkaline Phosphatase 114 Troponin I High Sens < 2.7 Total Protein 6.8 Albumin 3.7 Triglycerides 132 Cholesterol 275 H LDL Cholesterol, Calc 169 H HDL Cholesterol 80 Lipase 27 Urine Color Yellow Urine Appearance Clear Urine pH 6.0 Ur Specific [place] >= 1.030 H Urine Protein Negative Urine Glucose (UA) >=1000 H Urine Ketones Negative Urine Blood Negative Urine Nitrite Negative Ur Leukocyte Esterase Negative Urine RBC 0-2 Urine WBC 0-5 Ur Squamous Epith Cells 0-2 Urine Bacteria None Seen Hyaline Casts 0-2 Urine Opiates Screen Urine Fentanyl Screen Ur Barbiturates Screen Ur Phencyclidine Scrn Ur Amphetamines Screen U Benzodiazepines Scrn Urine Cocaine Screen U Marijuana (THC) Screen Ethyl Alcohol < 10 COVID-19 ([facility]) Negative COVID-19 Clin Com See Note 05/26/23 15:08 MCV MCH MCHC RDW Plt Count MPV Immature Gran % (Auto) Neut % (Auto) Lymph % (Auto) [place] % (Auto) Eos % (Auto) Baso % (Auto) Lymph # (Auto) [place] # (Auto) Eos # (Auto) Baso # (Auto) Abs Immat Gran (auto) Absolute Neuts (auto) Absolute Nucleated RBC Nucleated RBC % (auto) PT INR APTT Anion Gap Estim Creat Clear Calc Estimated GFR POC Glucose Random Glucose Calcium Magnesium Total Bilirubin Direct Bilirubin AST ALT Alkaline Phosphatase Troponin I High Sens Total Protein Albumin Triglycerides Cholesterol LDL Cholesterol, Calc HDL Cholesterol Lipase Urine Color Urine Appearance Urine pH Ur Specific [place] Urine Protein Urine Glucose (UA) Urine Ketones Urine Blood Urine Nitrite Ur Leukocyte Esterase Urine RBC Urine WBC Ur Squamous Epith Cells Urine Bacteria Hyaline Casts Urine Opiates Screen Not Detected Urine Fentanyl Screen Not Detected Ur Barbiturates Screen Not Detected Ur Phencyclidine Scrn Not Detected Ur Amphetamines Screen Not Detected U Benzodiazepines Scrn Not Detected Urine Cocaine Screen Not Detected U Marijuana (THC) Screen Not Detected Ethyl Alcohol COVID-19 ([facility]) COVID-19 Clin Com Imaging Radiologist's Impressions: Impressions Head CT 05/26/23 14:03 IMPRESSION: No acute intracranial process seen. There is old left lateral basal ganglia, external capsule and medial insular old infarct. There is no associated edema. This critical result was discussed with Dr. Carolina Judge at 2:15 PM on 05/26/2023. It was ascertained that the content and urgency of the report was understood at the time of direct communication. Head/Neck CTA 05/26/23 14:19 IMPRESSION: - No definite acute intracranial findings. Similar-appearing chronic left striatocapsular infarct when compared to the brain MRI from 09/09/2022. If there is new neurologic deficit clinically, MRI would be more sensitive in assessment. - No acute arterial occlusions intracranially. Severe stenosis involving the left P2/P3 posterior cerebral artery junction. No significant - A 2.5 mm aneurysm projects inferomedially from the communicating segment of the left internal carotid artery. There is also a shallow possible 2 mm aneurysm along the undersurface of the communicating segment of the right internal carotid artery. Findings discussed with Dr. Sumner at 2:40 PM on 05/26/2023. Assessment and Plan (1) Acute hyperglycemia: Status: Acute Plan 67F PMH DM, cva with residual mild right hemiparesis, dystonia, movement disorder, PMR, htn, history of pe no longer on AC, b12 deficiency, mild intermittent asthma, hld, presented with right hemiparesis acute on chronic right hemiparesis concern for CVA asa, statin, neuro evat pt, ot echo, mri tele DM with hyperglycemia basal bolus insulin, monitor htn permissive htn history of pe no longer on AC b12 deficiency b12 supplement mild intermittent asthma stable hld statin dvt prophylaxis - lovenox full code patient with acute stroke, due to history of cva, dm, htn, at risk for short term recurrence, will likely need atleast 2 midnights in patient. Quality Stroke Does the patient have a stroke diagnosis?: Yes Reason for No Anti-thrombotic by Day Two: N/A - Med Ordered VTE Prior VTE?: Yes VTE Risk Level:: Medical - moderate - high VTE Device Contraindication: Treatment Not Indicated VTE Drug Contraindication: N/A - Med Ordered
[2023-05-26 16:51] VITALS: BP 164/87; PULSE 88; RESP 21; O2SAT 98
[2023-05-26 17:04] VITALS: BP 164/87; PULSE 85; RESP 21
--- NOTE | 2023-05-26 17:09 | PHA.MEDREC ---
Pharmacy Consult ? Medication Reconciliation Pharmacy has completed the medication reconciliation. Patient reported taking ezetimibe, simvastatin, HCTz and carvedilol. Pharmacy has no history of caredilol, ezetimibe or HCTZ. Carvedilol was prescribed by airplane cabin attendant in 2021. Pharmacy's last histroy of a statin was 2021 when rosuvastatin was prescribed by PCP. Since patient reports taking medications, I left on home medications list. Marilee Borrego, CalistaD
[2023-05-26 17:15] LABS: Glucose, Whole Blood 241 mg/dL (60-115)
[2023-05-26] MEDS: Insulin Lispro 100 UNIT/ML 3 ML VIAL SUBCUT ×2 (17:32→21:03)
[2023-05-26 19:05] LABS: Prothrombin Time Whole Bld POC 11.2 sec (11.1-13.5); ~PT, ~INR - Anti Coag Clinic 0.9 (0.9-1.1)
[2023-05-26 19:19] VITALS: BP 165/79; PULSE 76; RESP 18; TEMP 36.6; O2SAT 98
--- NOTE | 2023-05-26 19:20 | PC.NURSE ---
this rn assumed care of pt. pt sitting in stretcher, no acute distress at this time. vss.
[2023-05-26 20:02] LABS: Hemoglobin A1c % > 14 % (<6.0)
[2023-05-26 21:01] LABS: Glucose, Whole Blood 274 mg/dL (60-115)
[2023-05-26] MEDS: Insulin Glargine,Hum.rec.anlog 100 UNIT/ML 10 ML VIAL 15 UNIT SUBCUT (21:03)
[2023-05-26] MEDS: Gabapentin 400 MG CAPSULE PO (21:04)
[2023-05-26] MEDS: Atorvastatin Calcium 80 MG TABLET PO (21:04)
--- NOTE | 2023-05-26 21:36 | PC.NURSE ---
pharmacy to bring medication up for pt.
[2023-05-26] MEDS: Celecoxib 100 MG CAPSULE PO (21:39)
--- NOTE | 2023-05-26 21:41 | PC.NURSE ---
pt medicated per mar,pt tolerated well with water.
--- NOTE | 2023-05-26 23:52 | MHC.EDTECH ---
PT used her call cervantes, When this tech went in she asked for assistance to the commode. This tech helped her to and from the commode. All set
[2023-05-27] VITALS (8 sets, daily range): BP systolic 160–184; BP diastolic 71–85; PULSE 76–97; RESP 16–23; TEMP 36.3–36.7; O2SAT 96–98; BMI 27.7
[2023-05-27 05:31] LABS: Hematocrit 32.2 % (37.0-47.0); Hemoglobin 10.3 g/dl (12.0-16.0); Mean Corpuscular Hemoglobin 26.2 pg (27.0-33.0); Mean Corpuscular Volume 81.9 fL (80.0-98.0); Platelet Count 276 X10*3/uL (160-400); Red Blood Count 3.93 X10*6/uL (4.20-5.50); Red Cell Distribution Width 14.6 % (11.0-16.0); White Blood Count 5.9 X10*3/uL (4.8-10.8)
[2023-05-27 05:43] LABS: Anion Gap 10 (12-20); Blood Urea Nitrogen 15 mg/dL (9-16); Calcium 8.8 mg/dL (8.4-10.2); Carbon Dioxide 27 mmol/L (22-29); Chloride 105 mmol/L (96-108); Creatinine Clr Calc Pharmacy 95.8; Estimated Glomerular Filt Rate > 60; Glucose Fasting 195 mg/dL (60-99); Potassium 3.1 mmol/L (3.3-5.1); Sodium 139 mmol/L (135-145)
[2023-05-27] MEDS: Omeprazole 20 MG CAPSULE.DR PO (06:09)
--- NOTE | 2023-05-27 06:10 | PC.NURSE ---
pt medicated per mar, pt tolerated well with water. pt a&ox4, respirations even and unlabored.
--- NOTE | 2023-05-27 06:23 | MHC.EDTECH ---
Pt was assisted to beside commode during rounds. Pt needed 1 assist to the bedside commode due to them being weak and knees buckling when trying to stand on their own. Pt urinated and was assisted with personal hygiene and a partial bed bath. Linen were changed and pt was assited with oral hygiene.
--- NOTE | 2023-05-27 07:00 | CA_ITS ---
Transthoracic Echocardiogram Patient (Last, First, Middle): Lanny Valderrama, Gender: Female Date of : 1955 Age: 67 Procedure Date: 05/27/2023 Procedure Type: Transthoracic Echocardiogram Location: ER Height: 170.18 cm Weight: 96.62 kg BSA: 2.08 m2 Heart Rate: 74 bpm BP: 163 / 78 mmHg [employer]: [employer] Referring MD: Hany Medina MD Symptoms: cva Study Quality: Adequate ECG Rhythm: Sinus Conclusions: - Normal left ventricular cavity size. The left ventricular systolic function is hyperdynamic. The visually estimated ejection fraction is >70%. There is no evidence of regional wall motion abnormalities. Diastolic function is indeterminate on the basis of available data. There is severe septal asymmetric hypertrophy. - Normal right ventricular cavity size and systolic function. Findings Left Ventricle Normal left ventricular cavity size. The left ventricular systolic function is hyperdynamic. The visually estimated ejection fraction is >70%. There is no evidence of regional wall motion abnormalities. Diastolic function is indeterminate on the basis of available data. There is severe septal asymmetric hypertrophy. Right Ventricle Normal right ventricular cavity size and systolic function. Atria The left atrium is normal in size. The right atrium is normal in size. Aortic Valve There is a normal trileaflet aortic valve. There is mild calcification of the aortic valve. There is no aortic valve stenosis. There is no aortic valve regurgitation. Mitral Valve There is severe mitral annular calcification. There is mild mitral valve regurgitation. There is no mitral valve stenosis. Pulmonic Valve The pulmonic valve is normal. There is no pulmonic valve regurgitation. Tricuspid Valve Normal tricuspid valve structure. There is trace tricuspid valve regurgitation. Normal right atrial pressure. There is no evidence of pulmonary hypertension. Great Vessels All visible segments of the aorta are normal in size. Venous The inferior vena cava is normal in size and collapses greater than 50% with inspiration. Pericardium/Pleural There is no evidence of pericardial effusion. Prior Study Comparison Changes noted compared to prior study dated: 12/19/2021. Hyperdynamic LV. Measurements 2D Linear Measurements IVSd: 1.25 0.6-0.9/0.6-1.0 cm LVIDd: 4.66 3.9-5.3/4.2-5.9 cm LVIDd Index: 2.24 2.4-3.2/2.2-3.1 cm/m2 LVIDs: 2.98 2.0-3.6 cm LVPWd: 0.86 0.7-1.1 cm LA Diam: 4.00 2.7-3.8/3.0-4.0 cm LAIDs Index: 1.92 1.5-2.3 cm/m2 LV Mass: 217.46 67-162/88-224 g LV Mass Index: 104.55 43-95/49-115 g/m2 LVOT Diam: 2.30 3.0+(-)1.3 cm 2D Systolic Function EF 4C: 61.00 >55% EF 2C: 57.20 >55% EF BiP: 58.50 >55% Mitral Valve MV VTI: 0.34 MV Pk Darinel: 1.39 MV Mn Darinel: 0.84 MV Pk Grad: 8.00 MV Mn Grad: 4.00 MV Pk E: 0.93 MV PK A: 1.22 MV Decel Time: 261.00 E/A: 0.80 E'Lateral: 4.24 E'Medial: 4.57 E/E' Med: 20.40 E/E' Lat: 22.00 PHT: 76.00 MVA PHT: 2.89 MVA Continuity: 3.27 Decel Bulloch: 3.58 Aortic Valve AoV Pk Darinel: 1.96 AoV Mn Darinel: 1.26 AoV VTI: 0.35 AoV Pk Grad: 15.00 Aov Mn Grad: 8.00 SHU Cont.VTI: 3.22 LVOT LVOT Pk Darinel: 1.42 LVOT Mn Darinel: 0.92 LVOT VTI: 0.27 LVOT Pk Grad: 8.00 LVOT Mn Grad: 4.00 LVOT Diam: 2.30 LVOT Area: 4.15 Diastolic Function MV Pk E: 0.93 MV Pk A: 1.22 E/A: 0.80 E'Medial: 4.57 E/E' Med: 20.40 E' Laterial: 4.24 E/E' Lat: 22.00 Right Ventricle TAPSE (mm): 18.50 TVS' Darinel: 14.10 Tricuspid Valve TR Pk Darinel: 2.44 TR Pk Grad: 24.00 RA Press: 3.00 RVSP: 27.00 Great Vessels Aorta Sinus of Valsalva: 3.30 2.0-3.5 cm Ao Asc: 3.50 2.1-3.4 cm Pulmonary Valve PV Pk Darinel: 0.94 Peak PV Grad: 4.00 Updated in Other Vendor System with Status of Final Fred Messina MD electronically signed on 05/27/2023 8:35:38 PM with status of Final
[2023-05-27 07:17] LABS: Glucose, Whole Blood 205 mg/dL (60-115)
[2023-05-27] MEDS: Insulin Lispro 100 UNIT/ML 3 ML VIAL SUBCUT ×5 (07:49→20:12)
[2023-05-27] MEDS: Enoxaparin Sodium 40 MG/0.4 ML SYRINGE SUBCUT (07:51)
[2023-05-27] MEDS: LORazepam 1 MG TABLET PO (07:51)
[2023-05-27] MEDS: Cholecalciferol (Vitamin D3) 25 MCG TABLET 125 MCG PO (07:51)
[2023-05-27] MEDS: Ezetimibe 10 MG TABLET PO (07:52)
[2023-05-27] MEDS: Gabapentin 400 MG CAPSULE PO ×3 (07:52→20:11)
[2023-05-27] MEDS: Potassium Chloride ER 20 MEQ TAB.ER.PRT PO (07:52)
[2023-05-27] MEDS: Cyanocobalamin (Vitamin B-12) 1,000 MCG TABLET 1000 MCG PO (07:52)
[2023-05-27] MEDS: Aspirin Enteric Coated 81 MG TABLET.DR PO (07:52)
[2023-05-27] MEDS: Ascorbic Acid 500 MG TABLET PO (07:52)
[2023-05-27] MEDS: Folic Acid 1 MG TABLET PO (07:52)
--- NOTE | 2023-05-27 08:02 | PC.NURSE ---
Patient alert and oriented, respirations even and unlabored, patient reports 5/10 headache, right sided weakness noted in RUE and RLE, smile even at this time, left eye reactive to light, right eye not reactive to light due to cataracts and patient reports loss of vision which is baseline to right eye, vss.
--- NOTE | 2023-05-27 08:15 | PC.NURSE ---
called pharmacy to bring celebrex to ED
[2023-05-27] MEDS: Celecoxib 100 MG CAPSULE PO ×2 (09:13→20:11)
[2023-05-27] MEDS: Acetaminophen 325 MG TABLET 650 MG PO ×2 (09:17→21:18)
--- NOTE | 2023-05-27 09:36 | HO.PM.IMPN ---
Subjective Subjective Date of Service: 05/27/23 Interval History: no improvement in RLE hemiparesis Review of Systems Review of Systems: Yes all other systems are reviewed and are negative Physical Exam Vital Signs: Vital Signs: Last Vital Signs Temp 97.9 F 05/27/23 08:19 Pulse 81 05/27/23 08:19 Resp 23 H 05/27/23 08:19 BP 165/71 H 05/27/23 08:19 Pulse Ox 97 05/27/23 08:19 O2 Del Method Room Air 05/27/23 08:19 BMI result Body Mass Index 33.4 General: AO X 3, no acute distress Resp: CTA bilateral, no accessory muscles used CVS: S1,S2,RRR GI: soft, non tender, non distended Neuro: right arm choreaform movements, RUE 4/5, RLE 2+/5 Psych: appropriate affect, appropriate insight Objective Data Active Medications Acetaminophen (Acetaminophen 325 Mg Tablet) 650 mg PO Q6H PRN PRN Reason: Pain, Mild (Pain Scale 1-3) Last Admin: 05/27/23 09:17 Dose: 650 mg Documented By: SHOAIB Albuterol Sulfate (Albuterol Sulfate (0.083%) 2.5 Mg/3 Ml Vial.Neb) 2.5 mg INHALE Q4H PRN PRN Reason: Bronchospasm Albuterol Sulfate (Albuterol Sulfate 90 Mcg 8 Gm Inhaler) 2 puff INHALE Q4H PRN PRN Reason: Bronchospasm Ascorbic Acid (Ascorbic Acid 500 Mg Tablet) 500 mg PO DAILY [facility] Last Admin: 05/27/23 07:52 Dose: 500 mg Documented By: SHOAIB Aspirin (Aspirin Enteric Coated 81 Mg Tablet.) 81 mg PO DAILY [facility] Last Admin: 05/27/23 07:52 Dose: 81 mg Documented By: SHOAIB Atorvastatin Calcium (Atorvastatin Calcium 80 Mg Tablet) 80 mg PO BEDTIME [facility] Last Admin: 05/26/23 21:04 Dose: 80 mg Documented By: TC Celecoxib (Celecoxib 100 Mg Capsule) 100 mg PO BID [facility] Last Admin: 05/27/23 09:13 Dose: 100 mg Documented By: SHOAIB Cyanocobalamin (Cyanocobalamin (Vitamin B-12) 1,000 Mcg Tablet) 1,000 mcg PO DAILY [facility] Last Admin: 05/27/23 07:52 Dose: 1,000 mcg Documented By: SHOAIB Dextrose (Dextrose 50 % 25 Gm/50 Ml Syringe) 25 gm IVPUSH Q15M PRN; Protocol PRN Reason: per Hypoglycemia Standing Ord. Ezetimibe (Ezetimibe 10 Mg Tablet) 10 mg PO DAILY [facility] Last Admin: 05/27/23 07:52 Dose: 10 mg Documented By: SHOAIB Folic Acid (Folic Acid 1 Mg Tablet) 1 mg PO DAILY [facility] Last Admin: 05/27/23 07:52 Dose: 1 mg Documented By: SHOAIB Gabapentin (Gabapentin 400 Mg Capsule) 400 mg PO TID [facility] Last Admin: 05/27/23 07:52 Dose: 400 mg Documented By: SHOAIB Glucose (Glucose Gel 15 Gm Gel..Gram.) 15 gm PO Q15M PRN; Protocol PRN Reason: per Hypoglycemia Standing Ord. Insulin Glargine (Insulin Glargine,Hum.Rec.Anlog 100 Unit/Ml 10 Ml Vial) 15 unit SUBCUT BEDTIME [facility] Last Admin: 05/26/23 21:03 Dose: 15 unit Documented By: TC Insulin Human Lispro (Insulin Lispro 100 Unit/Ml 3 Ml Vial) 0 unit SUBCUT QIDACHS [facility]; Protocol Last Admin: 05/27/23 07:49 Dose: 4 unit Documented By: SHOAIB Lorazepam (Lorazepam 1 Mg Tablet) 1 mg PO DAILY [facility] Last Admin: 05/27/23 07:51 Dose: 1 mg Documented By: SHOAIB Omeprazole (Omeprazole 20 Mg Abran.) 20 mg PO DAILY@0630 [facility] Last Admin: 05/27/23 06:09 Dose: 20 mg Documented By: YOVANY Ondansetron HCl (Ondansetron Hcl 4 Mg/2 Ml Vial) 4 mg IVPUSH Q8H PRN PRN Reason: Nausea and Vomiting Potassium Chloride (Potassium Chloride Er 20 Meq Tab.Er.Prt) 20 meq PO DAILY [facility] Last Admin: 05/27/23 07:52 Dose: 20 meq Documented By: SHOAIB Vitamin D (Cholecalciferol (Vitamin D3) 25 Mcg Tablet) 125 mcg PO DAILY [facility] Last Admin: 05/27/23 07:51 Dose: 125 mcg Documented By: SHOAIB Labs 05/27/23 05:09 05/27/23 05:09 Labs: Laboratory Results - last 24 hr 05/26/23 05/26/23 05/26/23 14:12 14:15 14:55 MCV 82.3 MCH 26.4 L MCHC 32.1 RDW 14.6 Plt Count 273 MPV 11.0 Immature Gran % (Auto) 0.2 Neut % (Auto) 66.8 Lymph % (Auto) 27.0 [place] % (Auto) 5.3 Eos % (Auto) 0.5 Baso % (Auto) 0.2 Lymph # (Auto) 1.8 [place] # (Auto) 0.4 Eos # (Auto) 0.0 Baso # (Auto) 0.0 Abs Immat Gran (auto) 0.01 Absolute Neuts (auto) 4.5 Absolute Nucleated RBC 0.000 Nucleated RBC % (auto) 0.0 PT 10.9 L Whole Blood PT 11.2 INR 0.9 D Whole Blood INR 0.9 APTT 28.3 Anion Gap 10 L Estim Creat Clear Calc 76.6 Estimated GFR > 60 POC Glucose 393 H* Random Glucose 421 H* Fasting Glucose Estimat Average Glucose TNP Hemoglobin A1c % > 14 H Calcium 9.3 Magnesium 1.7 Total Bilirubin 0.7 Direct Bilirubin 0.2 AST 8 ALT 7 Alkaline Phosphatase 114 Troponin I High Sens < 2.7 Total Protein 6.8 Albumin 3.7 Triglycerides 132 Cholesterol 275 H LDL Cholesterol, Calc 169 H HDL Cholesterol 80 Lipase 27 Urine Color Urine Appearance Urine pH Ur Specific [place] Urine Protein Urine Glucose (UA) Urine Ketones Urine Blood Urine Nitrite Ur Leukocyte Esterase Urine RBC Urine WBC Ur Squamous Epith Cells Urine Bacteria Hyaline Casts Urine Opiates Screen Urine Fentanyl Screen Ur Barbiturates Screen Ur Phencyclidine Scrn Ur Amphetamines Screen U Benzodiazepines Scrn Urine Cocaine Screen U Marijuana (THC) Screen Ethyl Alcohol < 10 COVID-19 ([facility]) Negative COVID-19 Clin Com See Note 05/26/23 05/26/23 05/26/23 15:02 15:08 17:11 MCV MCH MCHC RDW Plt Count MPV Immature Gran % (Auto) Neut % (Auto) Lymph % (Auto) [place] % (Auto) Eos % (Auto) Baso % (Auto) Lymph # (Auto) [place] # (Auto) Eos # (Auto) Baso # (Auto) Abs Immat Gran (auto) Absolute Neuts (auto) Absolute Nucleated RBC Nucleated RBC % (auto) PT Whole Blood PT INR Whole Blood INR APTT Anion Gap Estim Creat Clear Calc Estimated GFR POC Glucose 241 H Random Glucose Fasting Glucose Estimat Average Glucose Hemoglobin A1c % Calcium Magnesium Total Bilirubin Direct Bilirubin AST ALT Alkaline Phosphatase Troponin I High Sens Total Protein Albumin Triglycerides Cholesterol LDL Cholesterol, Calc HDL Cholesterol Lipase Urine Color Yellow Urine Appearance Clear Urine pH 6.0 Ur Specific [place] >= 1.030 H Urine Protein Negative Urine Glucose (UA) >=1000 H Urine Ketones Negative Urine Blood Negative Urine Nitrite Negative Ur Leukocyte Esterase Negative Urine RBC 0-2 Urine WBC 0-5 Ur Squamous Epith Cells 0-2 Urine Bacteria None Seen Hyaline Casts 0-2 Urine Opiates Screen Not Detected Urine Fentanyl Screen Not Detected Ur Barbiturates Screen Not Detected Ur Phencyclidine Scrn Not Detected Ur Amphetamines Screen Not Detected U Benzodiazepines Scrn Not Detected Urine Cocaine Screen Not Detected U Marijuana (THC) Screen Not Detected Ethyl Alcohol COVID-19 ([facility]) COVID-19 Clin [facility] 05/26/23 05/27/23 05/27/23 20:56 05:09 07:13 MCV 81.9 MCH 26.2 L MCHC 32.0 RDW 14.6 Plt Count 276 MPV 11.0 Immature Gran % (Auto) Neut % (Auto) Lymph % (Auto) [place] % (Auto) Eos % (Auto) Baso % (Auto) Lymph # (Auto) [place] # (Auto) Eos # (Auto) Baso # (Auto) Abs Immat Gran (auto) Absolute Neuts (auto) Absolute Nucleated RBC 0.000 Nucleated RBC % (auto) 0.0 PT Whole Blood PT INR Whole Blood INR APTT Anion Gap 10 L Estim Creat Clear Calc 95.8 Estimated GFR > 60 POC Glucose 274 H 205 H Random Glucose Fasting Glucose 195 H Estimat Average Glucose Hemoglobin A1c % Calcium 8.8 Magnesium Total Bilirubin Direct Bilirubin AST ALT Alkaline Phosphatase Troponin I High Sens Total Protein Albumin Triglycerides Cholesterol LDL Cholesterol, Calc HDL Cholesterol Lipase Urine Color Urine Appearance Urine pH Ur Specific [place] Urine Protein Urine Glucose (UA) Urine Ketones Urine Blood Urine Nitrite Ur Leukocyte Esterase Urine RBC Urine WBC Ur Squamous Epith Cells Urine Bacteria Hyaline Casts Urine Opiates Screen Urine Fentanyl Screen Ur Barbiturates Screen Ur Phencyclidine Scrn Ur Amphetamines Screen U Benzodiazepines Scrn Urine Cocaine Screen U Marijuana (THC) Screen Ethyl Alcohol COVID-19 ([facility]) COVID-19 Clin Com Assessment and Plan (1) Acute hyperglycemia: Status: Acute Plan 67F PMH DM, cva with residual mild right hemiparesis, dystonia, movement disorder, PMR, htn, history of pe no longer on AC, b12 deficiency, mild intermittent asthma, hld, presented with worsening right hemiparesis acute on chronic right hemiparesis do to acute CVA MRI: Small acute white matter infarct within the deep white matter of the left frontal lobe. asa, statin, neuro eval pt, ot - recommending acute rehab echo tele DM with hyperglycemia basal bolus insulin, monitor htn permissive htn history of pe no longer on AC b12 deficiency b12 supplement mild intermittent asthma stable, albuterol prn hld statin dvt prophylaxis - lovenox full code reason for continued hospitalization: ongoing stroke work up Quality Stroke Does the patient have a stroke diagnosis?: Yes Reason for No Anti-thrombotic by Day Two: N/A - Med Ordered VTE Prior VTE?: Yes VTE Risk Level:: Medical - moderate - high VTE Device Contraindication: Treatment Not Indicated VTE Drug Contraindication: N/A - Med Ordered
--- NOTE | 2023-05-27 09:39 | P.CNNE_ITS ---
History of Present Illness Data of Consult Service Date: 05/27/23 Primary Care Provider: Unknown Physician HPI Reason for consult: stroke This is a 67 yr old woman with h/o DM, remote stroke in May 2022 with residual mild right hemiparesis, dystonia, movement disorder, PMR, HBP, history of PE no longer on AC, b12 deficiency, mild intermittent asthma, hyperlipidemia, presented with right hemiparesis. At baseline patient does have mild right hemiparesis from previous stroke from May 2022, that had sudden worsening , with tingling and slurred speech. Later in the middle of the night she had worsening of her symptoms unable to ambulate. Patient was reluctant to come to the hospital until family convinced her to come. She arrived outside thrombolytic window. CTA head and neck did not show acute stroke or large vessel occlusion, did have incidental 2.5 mm aneurysm. Patient continues to have right hemiparesis worsened baseline.MRI shows a small acute stroke in the subcortical white matter of the left fronto-parietal area along with the old left basal ganglia stroke . Review of Systems 2 Review of Systems: Constitutional : No Fever, No Chills, No Fatigue ENT/Mouth : No sore throat, No Rhinorrhea Eyes: No Eye Pain, No Swelling, No Redness Cardiovascular : No Chest Pain, No SOB, No Dyspnea on Exertion Respiratory : No Cough, No Sputum Gastrointestinal : No Nausea, No Vomiting, No Diarrhea, No abdominal Pain Genitourinary : No Dysuria, No Urinary Frequency, No Hematuria, Musculoskeletal : No joint pain, No Myalgias, No Joint Swelling Skin : No Skin Lesions, No rash Neuro : pos Weakness, No Numbness, No Dizziness, positive Headache Psych : No Anxiety/Panic, No Depression All other systems reviewed and are negative Yes all other systems are reviewed and are negative [facility] Past Medical History Medical History Bleeding hemorrhoids Carpal tunnel syndrome, bilateral Internal and external hemorrhoids without complication Diverticulosis Rectal bleed Varicose veins of both lower extremities with pain Hx pulmonary embolism Rectal bleeding Obesity (BMI 30-39.9) Overactive bladder Migraine GERD without esophagitis Allergic rhinitis Fibromyalgia Vitamin B12 deficiency Asthma Bilateral primary osteoarthritis of knee Pure hypercholesterolemia Benign essential hypertension Bilateral lower extremity edema Mammogram abnormal Intertrigo Breast nodule Goiter Vitamin D deficiency HLD (hyperlipidemia) T2DM (type 2 diabetes mellitus) Arthritis Breast pain, right Calcific tendinitis of right hip Right lumbar radiculopathy Right hip pain Low back pain Family History Family History Father Hypertension Myocardial infarction Stroke Mother Hypertension Diabetes Surgical History Surgical History Hx of breast surgery History of colonoscopy History of mammogram History of incision and drainage Hx of cataract extraction Hx of cholecystectomy Hx of tubal ligation Hx of eye surgery History of tonsillectomy and adenoidectomy Social History Social History Household Members: Spouse and Children Housing: House Are you a primary child care worker to a significant other at home: No Do you presently have visiting nurse or other home services: No Alcohol intake: never Patient Tobacco Use Status: Never used Tobacco Smoked in Last 30 Days: No e-Cigarette/Vaping Use: Never Used Second Hand Smoke Exposure: No Use of substances other than those prescribed or required for medical reasons: No Advance Directives: No Nutrition Risks: No Nutritional Risk service: No Current occupational status: disabled Cognitive needs: No Hearing needs: No Vision needs: Yes Meds Allergies Allergy/AdvReac Type Severity Reaction Status Date / Time Penicillins [PENICILLINS] Allergy Severe SOB, rash, Verified 04/28/23 14:08 itching codeine [CODEINE] Allergy Intermediate RASH SOB Verified 04/28/23 14:08 oxycodone [From PERCOCET] Allergy Intermediate RASH SOB Verified 04/28/23 14:08 kiwi [KIWI] Allergy Mild ITCHY IF Verified 04/28/23 14:08 TOUCHES pineapple [PINEAPPLE] Allergy Mild ITCHY IF Verified 04/28/23 14:08 TOUCHES metformin AdvReac Intermediate dizziness, Verified 04/28/23 14:08 blurred vision Active Medications: Current Medications Acetaminophen (Acetaminophen 325 Mg Tablet) 650 mg PO Q6H PRN PRN Reason: Pain, Mild (Pain Scale 1-3) Last Admin: 05/27/23 09:17 Dose: 650 mg Albuterol Sulfate (Albuterol Sulfate (0.083%) 2.5 Mg/3 Ml Vial.Neb) 2.5 mg INHALE Q4H PRN PRN Reason: Bronchospasm Albuterol Sulfate (Albuterol Sulfate 90 Mcg 8 Gm Inhaler) 2 puff INHALE Q4H PRN PRN Reason: Bronchospasm Ascorbic Acid (Ascorbic Acid 500 Mg Tablet) 500 mg PO DAILY [facility] Last Admin: 05/27/23 07:52 Dose: 500 mg Aspirin (Aspirin Enteric Coated 81 Mg Tablet.) 81 mg PO DAILY [facility] Last Admin: 05/27/23 07:52 Dose: 81 mg Atorvastatin Calcium (Atorvastatin Calcium 80 Mg Tablet) 80 mg PO BEDTIME [facility] Last Admin: 05/26/23 21:04 Dose: 80 mg Celecoxib (Celecoxib 100 Mg Capsule) 100 mg PO BID [facility] Last Admin: 05/27/23 09:13 Dose: 100 mg Cyanocobalamin (Cyanocobalamin (Vitamin B-12) 1,000 Mcg Tablet) 1,000 mcg PO DAILY [facility] Last Admin: 05/27/23 07:52 Dose: 1,000 mcg Dextrose (Dextrose 50 % 25 Gm/50 Ml Syringe) 25 gm IVPUSH Q15M PRN; Protocol PRN Reason: per Hypoglycemia Standing Ord. Ezetimibe (Ezetimibe 10 Mg Tablet) 10 mg PO DAILY [facility] Last Admin: 05/27/23 07:52 Dose: 10 mg Folic Acid (Folic Acid 1 Mg Tablet) 1 mg PO DAILY [facility] Last Admin: 05/27/23 07:52 Dose: 1 mg Gabapentin (Gabapentin 400 Mg Capsule) 400 mg PO TID [facility] Last Admin: 05/27/23 07:52 Dose: 400 mg Glucose (Glucose Gel 15 Gm Gel..Gram.) 15 gm PO Q15M PRN; Protocol PRN Reason: per Hypoglycemia Standing Ord. Insulin Glargine (Insulin Glargine,Hum.Rec.Anlog 100 Unit/Ml 10 Ml Vial) 15 unit SUBCUT BEDTIME [facility] Last Admin: 05/26/23 21:03 Dose: 15 unit Insulin Human Lispro (Insulin Lispro 100 Unit/Ml 3 Ml Vial) 0 unit SUBCUT QIDACHS [facility]; Protocol Last Admin: 05/27/23 07:49 Dose: 4 unit Lorazepam (Lorazepam 1 Mg Tablet) 1 mg PO DAILY [facility] Last Admin: 05/27/23 07:51 Dose: 1 mg Omeprazole (Omeprazole 20 Mg Capsule.) 20 mg PO DAILY@0630 [facility] Last Admin: 05/27/23 06:09 Dose: 20 mg Ondansetron HCl (Ondansetron Hcl 4 Mg/2 Ml Vial) 4 mg IVPUSH Q8H PRN PRN Reason: Nausea and Vomiting Potassium Chloride (Potassium Chloride Er 20 Meq Tab.Er.Prt) 20 meq PO DAILY [facility] Last Admin: 05/27/23 07:52 Dose: 20 meq Vitamin D (Cholecalciferol (Vitamin D3) 25 Mcg Tablet) 125 mcg PO DAILY [facility] Last Admin: 05/27/23 07:51 Dose: 125 mcg Home Medications Medication Instructions Recorded Confirmed Last Taken Type ascorbate calcium (vitamin C) 500 500 mg PO DAILY 01/24/20 05/26/23 05/25/23 History mg tablet cyanocobalamin (vitamin B-12) 1,000 mcg PO DAILY 01/24/20 05/26/23 05/25/23 History 1,000 mcg capsule ezetimibe 10 mg tablet (Zetia) 10 mg PO DAILY 01/24/20 05/26/23 Unknown History hydrochlorothiazide 25 mg tablet 25 mg PO DAILY 01/24/20 05/26/23 Unknown History omeprazole 20 mg capsule,delayed 20 mg PO DAILY 01/24/20 05/26/23 05/25/23 History release celecoxib 100 mg capsule (Celebrex) 100 mg PO BID pain 05/26/23 05/26/23 05/25/23 History dulaglutide 0.75 mg/0.5 mL 0.75 mg subcut SA 05/26/23 05/26/23 05/25/23 History subcutaneous pen injector (Trulicity) insulin aspart U-100 100 unit/mL 0 sliding scale dose subcut QIDACHS 05/26/23 05/26/23 05/25/23 History (3 mL) subcutaneous pen (Novolog FlexPen U-100 Insulin aspart) lorazepam 1 mg tablet (Ativan) 1 mg PO DAILY anxiety 05/26/23 05/26/23 05/25/23 History Physical Exam 2 Vital Signs: Vital Signs: Last Vital Signs Temp 97.9 F 05/27/23 08:19 Pulse 81 05/27/23 08:19 Resp 23 H 05/27/23 08:19 BP 165/71 H 05/27/23 08:19 Pulse Ox 97 05/27/23 08:19 O2 Del Method Room Air 05/27/23 08:19 BMI result Body Mass Index 33.4 Neuro: Other: She is alert and oriented. Cranial nerrves are normal, but no field cuts. She has a mild right facial droop and mild right hemiparalysis 4-4+/5 in the right upper extremity and 4 minus/5 in the right lower extremity. Plantar responses are extensor on the right. Gait was not tested. Results Labs 05/27/23 05:09 05/27/23 05:09 Labs: Short CBC 05/26/23 05/27/23 Range/Units 14:55 05:09 WBC 6.7 5.9 (4.8-10.8) X10*3/uL Hgb 10.9 L 10.3 L (12.0-16.0) g/dl Hct 34.0 L 32.2 L (37.0-47.0) % Plt Count 273 276 (160-400) X10*3/uL BMP 05/26/23 05/27/23 14:55 05:09 Sodium 139 139 Potassium 3.5 3.1 L Chloride 102 105 Carbon Dioxide 31 H 27 BUN 8 L 15 Creatinine 0.85 0.68 Calcium 9.3 8.8 Liver Function 05/26/23 Range/Units 14:55 Total Bilirubin 0.7 (0.0-1.0) mg/dL Direct Bilirubin 0.2 (0.0-0.5) mg/dL AST 8 (5-31) U/L ALT 7 (0-31) U/L Alkaline Phosphatase 114 (39-117) U/L Albumin 3.7 (3.5-5.0) g/dL Urine 05/26/23 Range/Units 15:02 Urine Color Yellow Urine Appearance Clear Urine pH 6.0 (5.0-9.0) Ur Specific [place] >= 1.030 H (1.005-1.025) Urine Protein Negative (Neg-Trace) mg/dL Urine Glucose (UA) >=1000 H (Negative) mg/dL Assessment and Plan (1) Acute right-sided weakness: Status: Acute She has a new small white matter infarct in the left frontal parietal area. Superimposed on the previous left basal gannglia stroke with residual right hemiparalysis which is increased slightly. The strokes are due to small vessel disease rather than embolic or due to carotid or intracranial disease. I have reviewed, and the CTA and MRI films personally. Recommendations: Aspirin 81 mg a day. Plavix 75 mg a day. Atorvastatin. PT, OT (2) Acute hyperglycemia: Status: Acute Plan 67F PMH DM, cva with residual mild right hemiparesis, dystonia, movement disorder, PMR, htn, history of pe no longer on AC, b12 deficiency, mild intermittent asthma, hld, presented with right hemiparesis acute on chronic right hemiparesis concern for CVA asa, statin, neuro evat pt, ot echo, mri tele DM with hyperglycemia basal bolus insulin, monitor htn permissive htn history of pe no longer on AC b12 deficiency b12 supplement mild intermittent asthma stable hld statin dvt prophylaxis - lovenox full code patient with acute stroke, due to history of cva, dm, htn, at risk for short term recurrence, will likely need atleast 2 midnights in patient. Procedures Date of Service Date of Service: 05/27/23
--- NOTE | 2023-05-27 11:17 | MHC.CM.PN ---
CM ATTEMPTED TO MEET WITH PT WHO WAS SLEEPING CM CALLED PTS DAUGHTER, KULDEEP, WHO PROVIDED SOME INFORMATION, BUT STATED SHE BELIEVES THE PTS IS HER HCP. CM CALLED THE PTS , PR[facility]AN[facility] [phone] AND OBTAINED THE FOLLOWING INFORMATION: PT LIVES AT HOME WITH HER AND IS INDEPENDENT WITH SELF CARE PT IS LEGALLY BLIND AND USES A [facility] MOST OF THE TIME BUT HAS ALSO BEEN USING A WALKER LATELY PT HAD NO SERVICES [employer] PRASANNA BELIEVES THE PT HAS SIGNED A HCP IN THE PAST, BUT IS UNSURE IF THEY HAVE A COPY PCP: MARIXA CRUZ IMM DELIVERED DCP: PT AND OT ARE RECOMMENDING ACUTE REHAB PER [facility] THE PREFERRED [facility]AC[facility], FOLLOWING BY [facility] AND THEN [facility] TRANSPORT
[2023-05-27 12:36] LABS: Glucose, Whole Blood 255 mg/dL (60-115)
[2023-05-27] MEDS: Clopidogrel Bisulfate 75 MG TABLET PO (12:51)
--- NOTE | 2023-05-27 12:55 | PC.NURSE ---
Patient reports dizziness that feels like she is spinning in circles, left eye reactive to light, right eye patient reports cataracts/sluggish to light, right hand weakness, smile equal at this time, patient reports 5/10 headache persists that was unrelieved by tylenol, vss, NS on monitor, admitting aware of new findings.
--- NOTE | 2023-05-27 14:25 | PC.NURSE ---
called pharmacy to bring down meclizine
[2023-05-27] MEDS: Meclizine HCl 12.5 MG TABLET PO (15:45)
[2023-05-27 16:32] LABS: Glucose, Whole Blood 448 mg/dL (60-115)
[2023-05-27 20:09] LABS: Glucose, Whole Blood 247 mg/dL (60-115)
[2023-05-27] MEDS: Atorvastatin Calcium 80 MG TABLET PO (20:11)
[2023-05-27] MEDS: carvediloL 12.5 MG TABLET PO (20:11)
[2023-05-27] MEDS: Insulin Glargine,Hum.rec.anlog 100 UNIT/ML 10 ML VIAL 24 UNIT SUBCUT (20:12)
[2023-05-28] VITALS: BP 156/82; PULSE 76; RESP 18; TEMP 36.2; O2SAT 98
[2023-05-28 03:11] VITALS: BP 146/78; PULSE 71; RESP 18; TEMP 36.1; O2SAT 98
[2023-05-28] MEDS: Omeprazole 20 MG CAPSULE.DR PO (05:51)
[2023-05-28 06:25] LABS: Anion Gap 12 (12-20); Blood Urea Nitrogen 21 mg/dL (9-16); Calcium 8.6 mg/dL (8.4-10.2); Carbon Dioxide 28 mmol/L (22-29); Chloride 102 mmol/L (96-108); Creatinine Clr Calc Pharmacy 88.7; Estimated Glomerular Filt Rate > 60; Glucose Fasting 240 mg/dL (60-99); Magnesium 1.7 mg/dL (1.6-2.6); Potassium 3.5 mmol/L (3.3-5.1); Sodium 138 mmol/L (135-145)
[2023-05-28 06:35] LABS: Hematocrit 31.2 % (37.0-47.0); Hemoglobin 9.9 g/dl (12.0-16.0); Mean Corpuscular HGB Conc 31.7 g/dl (31.0-35.0); Mean Corpuscular Hemoglobin 26.6 pg (27.0-33.0); Mean Corpuscular Volume 83.9 fL (80.0-98.0); Mean Platelet Volume 11.3 fL (9.4-12.3); Platelet Count 283 X10*3/uL (160-400); Red Blood Count 3.72 X10*6/uL (4.20-5.50); Red Cell Distribution Width 14.6 % (11.0-16.0); White Blood Count 5.4 X10*3/uL (4.8-10.8)
[2023-05-28 07:05] VITALS: BP 161/74; PULSE 72; RESP 20; TEMP 36.6; O2SAT 97
[2023-05-28 07:11] LABS: Glucose, Whole Blood 233 mg/dL (60-115)
[2023-05-28] MEDS: Insulin Lispro 100 UNIT/ML 3 ML VIAL SUBCUT ×2 (07:48→12:02)
[2023-05-28] MEDS: Enoxaparin Sodium 40 MG/0.4 ML SYRINGE SUBCUT (07:49)
[2023-05-28] MEDS: Aspirin Enteric Coated 81 MG TABLET.DR PO (08:34)
[2023-05-28] MEDS: Gabapentin 400 MG CAPSULE PO ×2 (08:34→14:43)
[2023-05-28] MEDS: LORazepam 1 MG TABLET PO (08:34)
[2023-05-28] MEDS: Celecoxib 100 MG CAPSULE PO (08:35)
[2023-05-28] MEDS: Folic Acid 1 MG TABLET PO (08:35)
[2023-05-28] MEDS: carvediloL 12.5 MG TABLET PO (08:35)
[2023-05-28] MEDS: Cyanocobalamin (Vitamin B-12) 1,000 MCG TABLET 1000 MCG PO (08:35)
[2023-05-28] MEDS: Ascorbic Acid 500 MG TABLET PO (08:35)
[2023-05-28] MEDS: Clopidogrel Bisulfate 75 MG TABLET PO (08:35)
[2023-05-28] MEDS: Cholecalciferol (Vitamin D3) 25 MCG TABLET 125 MCG PO (08:35)
[2023-05-28] MEDS: Ezetimibe 10 MG TABLET PO (08:36)
[2023-05-28] MEDS: Potassium Chloride ER 20 MEQ TAB.ER.PRT PO (08:36)
--- NOTE | 2023-05-28 10:15 | MHC.CM.PN ---
Per ROUNDS discussion, Patient is medically cleared for dc to Acute Rehab today. Patient's first choice facility ([place]) is not contracted with Patient's insurance. Second choice facility ([place]) has accepted Patient and CM has requested that they initiate [facility] auth. CM will follow.
[2023-05-28 10:54] VITALS: BP 161/74; PULSE 72; O2SAT 97
[2023-05-28 11:13] VITALS: BP 144/69; PULSE 73; RESP 18; TEMP 36.3; O2SAT 96
[2023-05-28 11:20] LABS: Glucose, Whole Blood 181 mg/dL (60-115)
--- NOTE | 2023-05-28 11:38 | PM.DS ---
DS: Providers Provider Date of Service: 05/28/23 Date of admission: 05/26/23 16:21 Primary care physician: Unknown Physician Consults: 05/26/23 16:21 Consult to Neurology Routine Consulting Provider: Jesica Boo Reason for consultation: right thomas DS: Diagnosis Discharge Diagnosis (1) Acute right-sided weakness: Status: Acute (2) Acute hyperglycemia: Status: Acute DS: Summary Hospital Course Hospital Course: Date of Service: 05/26/23 Chief Complaint: right hemiparesis 67F PMH DM, cva with residual mild right hemiparesis, dystonia, movement disorder, PMR, htn, history of pe no longer on AC, b12 deficiency, mild intermittent asthma, hld, presented with right hemiparesis. At baseline patient does have mild right hemiparesis from stroke from May 2022. However, on day prior to presentation patient noted sudden onset of worsening right sided weakness with tingling and slurred speech. Patient went home. Not evening in the middle of the night had worsening of her symptoms unable to ambulate. Patient was reluctant to come to the hospital until family convinced her to come. She arrived outside thrombolytic window. CTA head and neck did not show acute stroke or large vessel occlusion, did have incidental 2.5 mm aneurysm. Patient continues to have right hemiparesis worsened baseline. Hospital course: 67F PMH DM, cva with residual mild right hemiparesis, dystonia, movement disorder, PMR, htn, history of pulmonary embolism, no longer on AC, b12 deficiency, mild intermittent asthma, hyperlipidemia, presented with worsening right hemiparesis and diagnosed to have acute CVA, MRI showed small acute white matter infarction within deep white matter of the frontal lobe patient evaluated by Neurology they recommend to continue aspirin, statin and added Plavix patient evaluated by Physical therapy and Occupational therapy they recommended acute rehab due to persistent dense right lower extremity weakness, and echocardiogram showed EF greater than 70 no wall motion abnormality and indeterminate diastolic function patient noted to have LDL of 169 and blood sugars in 200s strongly recommend compliance with statin and good blood sugar and blood pressure control. DM on insulin recommend to continue diabetic diet and Lantus Hypertension on multiple antihypertensive medication recommend to continue Coreg and losartan, hydrochlorothiazide discontinued recommend to follow blood pressure closely. history of pulmonary embolism no longer on AC b12 deficiency continue supplements mild intermittent asthma is stable continue home inhalers Hyperlipidemia on Crestor 40 mg and Zetia, elevated LDL recommend compliance with diet and medications , will switch to Lipitor 80 mg. Time Attestation Discharge Coordination Time (in mins): 35minutes Quality: Safe Use of Opioids Does Pt have an Active Cancer Diagnosis on the Problem List?: No Quality: Stroke Does the patient have a stroke diagnosis?: No Physical Exam Vital Signs: Vital Signs: Last Vital Signs Temp 97.3 F 05/28/23 11:13 Pulse 73 05/28/23 11:13 Resp 18 05/28/23 11:13 BP 144/69 H 05/28/23 11:13 Pulse Ox 96 05/28/23 11:13 O2 Del Method Room Air 05/28/23 11:13 BMI result Body Mass Index 27.7 Const: Other: General: Ax O X 3, no acute distress Anicteric sclera Neck is supple, no JVD Resp: CTA bilateral, no accessory muscles used CVS: S1,S2,RRR GI: soft, non tender, non distended Neuro: right arm choreaform movements, RUE 4/5, RLE 2+/5 Psych: appropriate affect, appropriate insight DS: Data Data Completed and Pending Labs on day of discharge: Laboratory Results - last 24 hr 05/27/23 05/27/23 05/27/23 12:29 16:28 20:05 WBC RBC Hgb Hct MCV MCH MCHC RDW Plt Count MPV Absolute Nucleated RBC Nucleated RBC % (auto) Sodium Potassium Chloride Carbon Dioxide Anion Gap BUN Creatinine Estim Creat Clear Calc Estimated GFR POC Glucose 255 H 448 H* 247 H Fasting Glucose Calcium Magnesium 05/28/23 05/28/23 05/28/23 05:50 07:08 11:16 WBC 5.4 RBC 3.72 L Hgb 9.9 L Hct 31.2 L MCV 83.9 MCH 26.6 L MCHC 31.7 RDW 14.6 Plt Count 283 MPV 11.3 Absolute Nucleated RBC 0.000 Nucleated RBC % (auto) 0.0 Sodium 138 Potassium 3.5 Chloride 102 Carbon Dioxide 28 Anion Gap 12 BUN 21 H Creatinine 0.67 Estim Creat Clear Calc 88.7 Estimated GFR > 60 POC Glucose 233 H 181 H Fasting Glucose 240 H Calcium 8.6 Magnesium 1.7 Discharge Plan Discharge Anticipated Discharge Date/Time: 05/28/23 11:21 Patient Disposition: Xfer Inpatient Rehab Fac Discharge Diagnosis: Acute CVA Acute on chronic right hemiparesis Referrals: [facility] [Outside] - 1 Week Physician,Unknown J [Primary Care Provider] - 1 Week Discharge Medications: New clopidogrel 75 mg Tablet 75 mg PO DAILY Qty: 30 0RF atorvastatin [Lipitor] 80 mg tablet 80 mg PO BEDTIME Qty: 30 0RF Continued (DME) compression stockings See Rx Instructions .Route .MEDSUPPLY Qty: 2 1RF Rx Instructions: Use daily as directed as needed, strength - medium; length - knee high (DME) FreeStyle Lite Strips Strip See Rx Instructions .Route Qty: 100 11RF Rx Instructions: As directed to test blood sugar three times a day (DME) lancets [FreeStyle Lancets] 28 gauge misc See Rx Instructions .Route Qty: 100 11RF Rx Instructions: As directed test blood sugar three times a day (DME) blood-glucose meter [OneTouch Ultra2 Meter] Kit See Rx Instructions .Route Qty: 1 0RF Rx Instructions: As directed 3x/day albuterol sulfate [Ventolin HFA] 90 mcg/actuation HFA aerosol inhaler 2 puff inhalation Q4-6H PRN (Reason: Bronchospasm) Qty: 18 5RF (DME) pen needle, diabetic [BD Ultra-Fine Micro Pen Needle] 32 gauge x 1/4 needle See Rx Instructions .ROUTE .MEDSUPPLY Qty: 150 11RF Rx Instructions: 5 times a day as directed - Lantus QD and Humalog QID (DME) pen needle, diabetic [BD Nella 2nd Gen Pen Needle] 32 gauge x 5/32 needle See Rx Instructions .ROUTE .MEDSUPPLY Qty: 1200 3RF Rx Instructions: test 5 times per day albuterol sulfate 2.5 mg /3 mL (0.083 %) solution for nebulization 2.5 mg continuous nebulization Q4-6H PRN (Reason: Bronchospasm) Qty: 180 5RF (DME) OneTouch Ultra Test Strip See Rx Instructions .Route Qty: 100 11RF Rx Instructions: 5 times per day (DME) lancets 33 gauge misc See Rx Instructions .ROUTE .MEDSUPPLY Qty: 100 11RF Rx Instructions: 5 times per day gabapentin 400 mg capsule 400 mg PO TID 30 Days Qty: 90 3RF aspirin [Adult Aspirin Regimen] 81 mg tablet,delayed release (DR/EC) 81 mg PO DAILY 90 Days Qty: 90 3RF tramadol 50 mg tablet 50 mg PO TID PRN (Reason: pain) 30 Days Qty: 90 0RF losartan 100 mg tablet 100 mg PO DAILY 90 Days Qty: 90 3RF cholecalciferol (vitamin D3) 125 mcg (5,000 unit) capsule 5,000 unit PO DAILY 30 Days Qty: 30 1RF risperidone [Risperdal] 0.5 mg tablet 0.5 mg PO BID 30 Days Qty: 60 1RF folic acid 1 mg Tablet 1 mg PO DAILY Qty: 90 4RF lorazepam [Ativan] 1 mg tablet 1 mg PO DAILY Trulicity 0.75 mg/0.5 mL pen injector 0.75 mg subcut SA celecoxib [Celebrex] 100 mg capsule 100 mg PO BID insulin aspart U-100 [Novolog FlexPen U-100 Insulin] 100 unit/mL (3 mL) insulin pen 0 sliding scale dose subcut QIDACHS Protocol: Insulin Correction Scale Less than or equal to 110 ---- Give (units): 0 111 to 150 Give (units): 0 151 to 200 Give (units): 2 201 to 250 Give (units): 4 251 to 300 Give (units): 6 301 to 350 Give (units): 8 Greater than 350 Give (units): 10 Call MD if Blood Glucose > : 350 Rx Instructions: Take 2 to 10 units, dosed PER SLIDING SCALE, 4 times a day - with meals and at bedtime, subcutaneously; cyanocobalamin (vitamin B-12) 1,000 mcg capsule 1,000 mcg PO DAILY ascorbate calcium (vitamin C) 500 mg tablet 500 mg PO DAILY ezetimibe [Zetia] 10 mg tablet 10 mg PO DAILY omeprazole 20 mg capsule,delayed release(DR/EC) 20 mg PO DAILY (DME) LIGHTWEIGHT WHEELCHAIR See Rx Instructions .Route .MEDSUPPLY Qty: 1 0RF Rx Instructions: As directed insulin glargine [Lantus Solostar U-100 Insulin] 100 unit/mL (3 mL) insulin pen 30 unit subcut QPM 30 Days Qty: 9 3RF ondansetron 8 mg tablet,disintegrating 8 mg PO Q8H PRN (Reason: nausea and vomiting) Qty: 30 2RF (DME) blood-glucose meter [FreeStyle Plato Lite] Kit See Rx Instructions .ROUTE .MEDSUPPLY Qty: 1 0RF Rx Instructions: As directed carvedilol [Coreg] 25 mg tablet 25 mg PO BID 90 Days Qty: 180 3RF Rx Instructions: must administer with a meal/food Discontinued potassium chloride [Klor-Con M20] 20 mEq tablet,ER particles/crystals 20 meq PO DAILY 30 Days Qty: 30 0RF hydrochlorothiazide 25 mg tablet 25 mg PO DAILY rosuvastatin 40 mg tablet 40 mg PO DAILY 90 Days Qty: 90 1RF Discharge Orders: Discharge Order (Routine); Ordered 05/28/23 Ordered By: Tressa Moon Diet: Diabetic diet Activity on Discharge: As tolerated Stand Alone Forms: Patient Portal Discharge page Care Plan Goals: Acute CVA with right lower extremity dense hemiparesis recommend acute rehab to maximize function and safety at home Strongly recommend to follow diabetic low-fat diet, elevated LDL recommend compliance with home medications and diet and repeat labs in 3-4 months Health Concerns: Hypertension Hyperlipidemia Diabetes Plan of Treatment: Outpatient follow-up with PCP Assessment: As above
--- NOTE | 2023-05-28 11:40 | MHC.CM.PN ---
Per MD, Patient is medically cleared for dc to Acute Rehab today. Patient will dc to [facility] today at 2:30 PM, via [facility]. Patient and her /Sudeep @ [phone] are aware of and in agreement with the dc plan. Last IMM addressed yesterday.
[2023-05-28] MEDS: Losartan Potassium 50 MG TABLET 100 MG PO (12:03)
--- NOTE | 2023-05-28 13:29 | MHC.CM.PN ---
CM met with Patient and her Daughter at bedside and addressed questions regarding dc plan/rehab in general; CM has asked MD to meet with them to address medical questions.
== END 2023-05-28 14:45 | DRG 65 ==
LOC: HO.ED 14:44 → HO.EDOVER 16:31 → HO.S3 05-27 07:31 → HO.EDOVER 05-27 08:01 → HO.IMC 05-27 15:24
PROVIDERS: Admitting Provider Internal Medicine; Emergency Provider Emergency Medicine; PCP Internal Medicine; Visit Provider Hospitalist
DX: I63.9 Cerebral infarction, unspecified (principal); I69.351 Hemiplegia and hemiparesis following cerebral infarction affecting right dominant side; E11.65 Type 2 diabetes mellitus with hyperglycemia; J45.20 Mild intermittent asthma, uncomplicated; R29.708 NIHSS score 8; E53.8 Deficiency of other specified B group vitamins; I10 Essential (primary) hypertension; Z86.711 Personal history of pulmonary embolism; Z20.822 Contact with and (suspected) exposure to COVID-19; Z79.4 Long term (current) use of insulin; Z79.85 Long-term (current) use of injectable non-insulin antidiabetic drugs; Z79.899 Other long term (current) drug therapy
CPT/HCPCS: 36415; 70450; 70496; 70498; 70551; 80048; 80061; 80076; 80307; 81001; 82947; 83036; 83690; 83735; 84484; 85025; 85027; 85610; 85730; 87635; 93005; 93306; 97110; 97112; 97163; 97167; 97530; 99285; J1650; Q9967

== ENCOUNTER → 2023-05-26 13:54 | Outpatient (BNV) | payer OTHER, MEDICAID, SELFPAY | PROVIDERS: Admitting Provider Internal Medicine; Emergency Provider Emergency Medicine; Visit Provider Internal Medicine Cardiovascular Disease | DX: R94.31 Abnormal electrocardiogram [ECG] [EKG] (principal) | CPT/HCPCS: 93010 ==

== ENCOUNTER 2023-05-26 16:21 | Outpatient (BNV) | payer OTHER, MEDICAID, SELFPAY | END 2023-05-27 07:00 | PROVIDERS: Admitting Provider Internal Medicine; Emergency Provider Emergency Medicine; Visit Provider Internal Medicine Cardiovascular Disease | DX: I34.0 Nonrheumatic mitral (valve) insufficiency (principal); I35.8 Other nonrheumatic aortic valve disorders | CPT/HCPCS: 93306 ==

== ENCOUNTER → 2023-05-26 16:21 | Outpatient (BNV) | payer OTHER, MEDICAID, SELFPAY | PROVIDERS: Admitting Provider Internal Medicine; Emergency Provider Emergency Medicine; Visit Provider Internal Medicine | DX: E11.65 Type 2 diabetes mellitus with hyperglycemia (principal) | CPT/HCPCS: 99223; 99232; 99239 ==

== ENCOUNTER → 2023-05-26 16:21 | Outpatient (BNV) | payer OTHER, MEDICAID, SELFPAY | PROVIDERS: Admitting Provider Internal Medicine; Emergency Provider Emergency Medicine; Visit Provider Psychiatry & Neurology Neurology | DX: R53.1 Weakness (principal); E11.65 Type 2 diabetes mellitus with hyperglycemia | CPT/HCPCS: 99222 ==

== ENCOUNTER 2023-06-10 22:11 | Emergency (ER) | payer OTHER, MEDICAID, SELFPAY ==
--- NOTE | 2023-06-10 | ECG_ITS ---
Test Reason : CHEST PAIN Blood Pressure : / mmHG Vent. Rate : 108 BPM Atrial Rate : 108 BPM P-R Int : 132 ms QRS Dur : 076 ms QT Int : 324 ms P-R-T Axes : 024 005 098 degrees QTc Int : 434 ms Sinus tachycardia with occasional Premature ventricular complexes ST & T wave abnormality, consider lateral ischemia Abnormal ECG When compared with ECG of 26-MAY-2023 14:48, Premature ventricular complexes are now Present T wave inversion less evident in Anterolateral leads QT has shortened Referred By: Generic ED Physician Electronically Signed By:MARYLU BRITO
--- NOTE | ~2023-06-10 | XR_ITS ---
EXAMINATION: XR CHEST CLINICAL INFORMATION: Cough chest pain COMPARISON: Chest radiograph from 11/20/2017 TECHNIQUE: 2 views of the chest were obtained. FINDINGS: No focal consolidation. No pneumothorax. Trachea is midline. Cardiac mediastinal silhouette is not enlarged. No large pleural effusion. Osseous structures are intact. Soft tissues are unremarkable. XR/XR chest 2V IMPRESSION: No acute cardiopulmonary process.
[2023-06-10 22:12] VITALS: BP 158/64; PULSE 110; RESP 20; TEMP 37.7; O2SAT 94; BMI 28.9
[2023-06-10 22:36] LABS: MANUAL DIFF FLAG NO
[2023-06-10 22:44] LABS: Basophils Percent Auto 0.2 % (0-2); Eosinophils Percent Auto 0.2 % (0-4); Hematocrit 34.7 % (37.0-47.0); Hemoglobin 11.3 g/dl (12.0-16.0); Imm Gran Abs Auto 0.02 X10*3/uL (0.00-0.03); Imm Gran Pct Auto 0.4 % (0.0-0.4); Lymphocytes Percent Auto 19.4 % (20-40); Mean Corpuscular HGB Conc 32.6 g/dl (31.0-35.0); Mean Corpuscular Hemoglobin 26.7 pg (27.0-33.0); Mean Corpuscular Volume 81.8 fL (80.0-98.0); Mean Platelet Volume 10.6 fL (9.4-12.3); Monocytes Absolute Auto 0.5 X10*3/uL (0.1-1.2); Monocytes Percent Auto 9.7 % (2-11); Neutrophils Absolute Auto 3.6 x10*3/uL (2.0-8.3); Neutrophils Percent Auto 70.1 % (45-73); Platelet Count 290 X10*3/uL (160-400); Red Blood Count 4.24 X10*6/uL (4.20-5.50); Red Cell Distribution Width 14.4 % (11.0-16.0); White Blood Count 5.2 X10*3/uL (4.8-10.8)
[2023-06-10 22:50] LABS: Alanine Aminotransferase 21 U/L (0-31); Alkaline Phosphatase 101 U/L (39-117); Anion Gap 16 (12-20); Aspartate Amino Transferase 27 U/L (5-31); Bilirubin Total 0.3 mg/dL (0.0-1.0); Blood Urea Nitrogen 25 mg/dL (9-16); Calcium 9.6 mg/dL (8.4-10.2); Carbon Dioxide 26 mmol/L (22-29); Chloride 99 mmol/L (96-108); Creatinine Clr Calc Pharmacy 54.2; Estimated Glomerular Filt Rate 51; Glucose Random 118 mg/dL (60-115); INTERNATIONAL NORM RATIO 1.1 (0.9-1.1); Magnesium 1.6 mg/dL (1.6-2.6); Potassium 4.6 mmol/L (3.3-5.1); Prothrombin Time 13.7 SEC (11.1-13.3); Sodium 136 mmol/L (135-145); Total Protein 7.4 g/dL (6.5-8.0)
[2023-06-10 22:57] LABS: Troponin-I High Sensitivity 4.6 ng/L (<3.5-17.0)
[2023-06-10 23:13] LABS: Influenza A PCR POSITIVE (Negative); Influenza B PCR NEGATIVE (Negative); Resp Syncy Virus RNA Qual PCR NEGATIVE (Negative); SARS COV2 PCR INHOUSE NEGATIVE (Negative)
[2023-06-10 23:34] VITALS: BP 126/74; PULSE 101; RESP 22; TEMP 37.7; O2SAT 93
[2023-06-10 23:51] VITALS: BP 129/63; PULSE 97; RESP 18; O2SAT 93
--- NOTE | 2023-06-10 23:52 | ED_ITS ---
HPI - General Adult General Chief complaint: General Medical Stated complaint: Chest pain, pneumonia Time Seen by Provider: 06/10/23 23:32 Source: patient and family Mode of arrival: ambulatory History of Present Illness HPI narrative: 67-year-old female was discharged from rehab today after suffering a stroke but family reports she appeared to be confused, increased urination at home and patient states that she has had subjective fevers felt tired and had a sore throat as well as cough since yesterday. Patient also reports chest pain associated with her coughing episodes Related Data Home Medications Medication Instructions Recorded Confirmed ascorbate calcium (vitamin C) 500 500 mg PO DAILY 01/24/20 05/26/23 mg tablet cyanocobalamin (vitamin B-12) 1,000 mcg PO DAILY 01/24/20 05/26/23 1,000 mcg capsule omeprazole 20 mg capsule,delayed 20 mg PO DAILY 01/24/20 05/26/23 release celecoxib 100 mg capsule (Celebrex) 100 mg PO BID pain 05/26/23 05/26/23 insulin aspart U-100 100 unit/mL 0 sliding scale dose subcut QIDACHS 05/26/23 05/26/23 (3 mL) subcutaneous pen (Novolog FlexPen U-100 Insulin aspart) lorazepam 1 mg tablet (Ativan) 1 mg PO DAILY anxiety 05/26/23 05/26/23 Previous Rx's Medication Instructions Recorded compression stockings #2 ea 06/18/20 blood-glucose meter (FreeStyle #1 ea 08/16/20 Reed Lite kit) LIGHTWEIGHT WHEELCHAIR #1 ea 01/30/21 folic acid 1 mg tablet 1 mg PO DAILY #90 tabs 02/25/21 blood sugar diagnostic (FreeStyle #100 ea 04/12/21 Lite Strips) lancets 28 gauge (FreeStyle #100 ea 04/12/21 Lancets) blood-glucose meter (OneTouch #1 ea 04/18/21 Ultra2 Meter kit) Ventolin HFA 90 mcg/actuation 2 puff inhalation Q4-6H PRN 07/16/21 aerosol inhaler (albuterol sulfate) Bronchospasm #18 grams carvedilol 25 mg tablet (Coreg) 25 mg PO BID 90 days #180 tabs 08/14/21 ondansetron 8 mg disintegrating 8 mg PO Q8H PRN nausea and 06/03/22 tablet vomiting #30 tabs insulin glargine 100 unit/mL (3 30 unit (0.3 mL) subcut QPM 30 07/09/22 mL) subcutaneous pen (Lant days #9 mL Solostar U-100 Insulin) albuterol sulfate 2.5 mg/3 mL 2.5 mg (3 mL) continuous 09/26/22 (0.083 %) solution for nebulization nebulization Q4-6H PRN Bronchospasm #180 mL blood sugar diagnostic (OneTouch #100 ea 09/26/22 Ultra Test strips) lancets 33 gauge #100 ea 09/26/22 pen needle, diabetic 32 gauge x #150 ea 09/26/2203/26 (BD Ultra-Fine Micro Pen Needle) pen needle, diabetic 32 gauge x #1,200 ea 09/26/22 (BD Nella 2nd Gen Pen Needle) gabapentin 400 mg capsule 400 mg PO TID 30 days #90 caps 12/01/22 aspirin 81 mg tablet,delayed 81 mg PO DAILY 90 days #90 tabs 03/17/23 release (Adult Aspirin Regimen) tramadol 50 mg tablet 50 mg PO TID PRN pain 30 days #90 03/17/23 tabs losartan 100 mg tablet 100 mg PO DAILY 90 days #90 tabs 03/26/23 cholecalciferol (vitamin D3) 125 5,000 unit PO DAILY 30 days #30 04/29/23 mcg (5,000 unit) capsule caps risperidone 0.5 mg tablet 0.5 mg PO BID 30 days #60 tabs 05/26/23 (Risperdal) atorvastatin 80 mg tablet (Lipitor) 80 mg PO BEDTIME #30 tabs 05/28/23 clopidogrel 75 mg tablet 75 mg PO DAILY #30 tabs 05/28/23 dulaglutide 0.75 mg/0.5 mL 0.75 mg (0.5 mL) subcut QWEEK #2 mL 06/02/23 subcutaneous pen injector (Trulicity) ezetimibe 10 mg tablet (Zetia) 10 mg PO DAILY 90 days #90 tabs 06/03/23 ondansetron 4 mg disintegrating 4 mg PO BID PRN nausea and 06/10/23 tablet vomiting 5 days #10 tabs oseltamivir 75 mg capsule (Tamiflu) 75 mg PO Q12H 5 days #10 caps 06/10/23 Allergies Allergy/AdvReac Type Severity Reaction Status Date / Time Penicillins [PENICILLINS] Allergy Severe SOB, rash, Verified 06/10/23 22:19 itching codeine [CODEINE] Allergy Intermediate RASH SOB Verified 06/10/23 22:19 oxycodone [From PERCOCET] Allergy Intermediate RASH SOB Verified 06/10/23 22:19 kiwi [KIWI] Allergy Mild ITCHY IF Verified 06/10/23 22:19 TOUCHES pineapple [PINEAPPLE] Allergy Mild ITCHY IF Verified 06/10/23 22:19 TOUCHES metformin AdvReac Intermediate dizziness, Verified 06/10/23 22:19 blurred vision Review of Systems 2 Review of Systems: Pertinent positives and negatives as stated in HPI [facility] Past Medical History Source: nursing notes reviewed Medical History Bleeding hemorrhoids Carpal tunnel syndrome, bilateral Internal and external hemorrhoids without complication Diverticulosis Rectal bleed Varicose veins of both lower extremities with pain Hx pulmonary embolism Rectal bleeding Obesity (BMI 30-39.9) Overactive bladder Migraine GERD without esophagitis Allergic rhinitis Fibromyalgia Vitamin B12 deficiency Asthma Bilateral primary osteoarthritis of knee Pure hypercholesterolemia Benign essential hypertension Bilateral lower extremity edema Mammogram abnormal Intertrigo Breast nodule Goiter Vitamin D deficiency HLD (hyperlipidemia) T2DM (type 2 diabetes mellitus) Arthritis Breast pain, right Calcific tendinitis of right hip Right lumbar radiculopathy Right hip pain Low back pain Surgical History Hx of breast surgery History of colonoscopy History of mammogram History of incision and drainage Hx of cataract extraction Hx of cholecystectomy Hx of tubal ligation Hx of eye surgery History of tonsillectomy and adenoidectomy Family History Family History Father Hypertension Myocardial infarction Stroke Mother Hypertension Diabetes Social History Social History Household Members: Spouse, Family and Children Housing: House Are you a primary rn urgent care to a significant other at home: No Do you presently have visiting nurse or other home services: No Alcohol intake: never Patient Tobacco Use Status: Never used Tobacco e-Cigarette/Vaping Use: Never Used Second Hand Smoke Exposure: No service: No Current occupational status: disabled Cognitive needs: No Hearing needs: No Vision needs: Yes Physical Exam ED Vital Signs: Vital Signs - 24 hr 06/10/23 22:12 06/10/23 23:34 06/10/23 23:51 Temperature 99.9 F 99.8 F Pulse Rate 110 H 101 H 97 Respiratory Rate 20 22 H 18 Blood Pressure 158/64 H 126/74 129/63 Pulse Oximetry 94 93 93 Oxygen Delivery Method Room Air Room Air Room Air BMI result Body Mass Index 28.9 VITAL SIGNS: Reviewed. GENERAL: Well developed, well nourished, in no acute distress. HEAD: Normocephalic/atraumatic EYES: PERRLA, EOMI EARS: Ext canals without abnormality, TMs non-bulging and non-erythematous NOSE: Nares patent bilateral OROPHARYNX: no oral lesions noted, posterior pharynx clear and non-erythematous without noted tonsillar enlargement/erythema/exudates NECK: Supple, no adenopathy LUNGS: Normal breath sounds. No adventitious sounds or accessory muscle use. SpO2<93> CARDIOVASCULAR: Regular rate and rhythm without noted murmurs, no JVD or lower extremity edema. ABDOMEN: Soft, non-tender, non-distended with bowel sounds. MUSCULOSKELETAL: No tenderness, deformities, or effusions noted on gross inspection. EXTREMITIES: No cyanosis, clubbing or edema. SKIN: Inspection of the skin reveals no rashes NEUROLOGIC: Alert and oriented x 4. Strength and sensation to light touch were grossly intact x 4, patient was some residual facial asymmetry secondary to recent stroke. Medical Decision Making Medical Decision Making MDM Narrative: 67-year-old female with history and clinical presentation, DDX: Viral infection, pneumonia I reviewed all investigations and hematologic indices are negative for leukocytosis or left shift, there is a stable normocytic anemia no thrombocytopenia. Coagulation studies her with in normal limits and chronically stable. Chemistry indices do not demonstrate an ARIANNA or electrolyte/liver enzyme derangements. I sensitivity troponin although detectable is not elevated. Urinalysis is negative for UTI or hematuria. Viral testing is positive for influenza a and patient received combination analgesics as well as 1st dose of Tamiflu. Chest x-ray negative for infiltrate or venous congestion and otherwise my interpretation is in agreement with radiology's impression. Differential Diagnosis Differential Diagnoses: The differential diagnosis associated with the presentation includes Please see the discussion above Admission/Observation Consideration of admission/observation: Escalation of care including admission/observation considered Please see the discussion above Lab Data MDM Lab Attestation statement: I reviewed the patient's lab results. Please see the discussion above 06/10/23 22:31 06/10/23 22:31 Labs: Lab Results 06/10/23 06/10/23 Range/Units 22:31 23:52 WBC 5.2 (4.8-10.8) X10*3/uL RBC 4.24 (4.20-5.50) X10*6/uL Hgb 11.3 L (12.0-16.0) g/dl Hct 34.7 L (37.0-47.0) % MCV 81.8 (80.0-98.0) fL MCH 26.7 L (27.0-33.0) pg MCHC 32.6 (31.0-35.0) g/dl RDW 14.4 (11.0-16.0) % Plt Count 290 (160-400) X10*3/uL MPV 10.6 (9.4-12.3) fL Immature Gran % (Auto) 0.4 (0.0-0.4) % Neut % (Auto) 70.1 (45-73) % Lymph % (Auto) 19.4 L (20-40) % [place] % (Auto) 9.7 (2-11) % Eos % (Auto) 0.2 (0-4) % Baso % (Auto) 0.2 (0-2) % Lymph # (Auto) 1.0 L (1.2-4.9) X10*3/uL [place] # (Auto) 0.5 (0.1-1.2) X10*3/uL Eos # (Auto) 0.0 (0.0-0.4) X10*3/uL Baso # (Auto) 0.0 (0.0-0.2) X10*3/uL Abs Immat Gran (auto) 0.02 (0.00-0.03) X10*3/uL Absolute Neuts (auto) 3.6 (2.0-8.3) x10*3/uL Absolute Nucleated RBC 0.000 (0.0-0.012) X10*3/uL Nucleated RBC % (auto) 0.0 (0.0-0.2) /100WBC PT 13.7 H D (11.1-13.3) SEC INR 1.1 (0.9-1.1) Sodium 136 (135-145) mmol/L Potassium 4.6 D (3.3-5.1) mmol/L Chloride 99 (96-108) mmol/L Carbon Dioxide 26 (22-29) mmol/L Anion Gap 16 (12-20) BUN 25 H (9-16) mg/dL Creatinine 1.08 (0.5-1.4) mg/dL Estim Creat Clear Calc 54.2 Estimated GFR 51 Random Glucose 118 H (60-115) mg/dL Calcium 9.6 D (8.4-10.2) mg/dL Magnesium 1.6 (1.6-2.6) mg/dL Total Bilirubin 0.3 (0.0-1.0) mg/dL AST 27 (5-31) U/L ALT 21 (0-31) U/L Alkaline Phosphatase 101 (39-117) U/L Troponin I High Sens 4.6 D (<3.5-17.0) ng/L Total Protein 7.4 (6.5-8.0) g/dL Albumin 4.0 (3.5-5.0) g/dL Urine Color Yellow Urine Appearance Clear Urine pH 5.5 (5.0-9.0) Ur Specific [place] 1.020 (1.005-1.025) Urine Protein Trace (Neg-Trace) mg/dL Urine Glucose (UA) Negative (Negative) mg/dL Urine Ketones Trace (Negative) mg/dL Urine Blood Negative (Negative) Urine Nitrite Negative (Negative) Ur Leukocyte Esterase Small (1+) H (Negative) Urine RBC 0-2 (0-2) /HPF Urine WBC 0-5 (0-5) /HPF Ur Squamous Epith Cells 6-10 (0-2) /HPF Urine Bacteria None Seen (None Seen) Hyaline Casts 3-5 (0-2) /LPF Influenza Type A (PCR) POSITIVE A (Negative) Influenza Type B (PCR) NEGATIVE (Negative) RSV RNA Qual (PCR) NEGATIVE (Negative) SARS-CoV-2 RNA (RT-PCR) NEGATIVE (Negative) Independent Interpretation I performed an independent interpretation of an: EKG Interpretation: Sinus tachycardia, HR-108, no STEMI, FL/QRS/QTC is within normal limits. Radiology Impression Discussion of test interpretation with radiology: I have reviewed the radiologist's reading. Radiologist Impression: Please see the discussion above Chronic Conditions Patient?s care impacted by: Diabetes and Hypertension History CVA Critical Care Time Critical Care Time Critical Care Time: Yes Total Critical Care Time: 30 Attestation: I personally attest to this time spent taking care of the patient. Discharge Plan Discharge Clinical Impression: Viral syndrome, Influenza A Patient Disposition: Home, Self-Care Instructions: Influenza (ED), Viral Syndrome (ED) Additional Instructions: 1. Resume all other home medications as prescribed. Recommend Tylenol for the treatment of any body aches, temperatures greater than 100.4. 2. Follow-up with your primary care doctor in the next 1-2 days. 3. Complete the entire course of Tamiflu as prescribed. Return to the ER for any worsening symptoms. Prescriptions: New oseltamivir [Tamiflu] 75 mg capsule 75 mg PO Q12H 5 Days Qty: 10 0RF ondansetron 4 mg tablet,disintegrating 4 mg PO BID PRN (Reason: nausea and vomiting) 5 Days Qty: 10 0RF No Action (DME) compression stockings See Rx Instructions .Route .MEDSUPPLY Qty: 2 1RF Rx Instructions: Use daily as directed as needed, strength - medium; length - knee high (DME) FreeStyle Lite Strips Strip See Rx Instructions .Route Qty: 100 11RF Rx Instructions: As directed to test blood sugar three times a day (DME) lancets [FreeStyle Lancets] 28 gauge misc See Rx Instructions .Route Qty: 100 11RF Rx Instructions: As directed test blood sugar three times a day (DME) blood-glucose meter [OneTouch Ultra2 Meter] Kit See Rx Instructions .Route Qty: 1 0RF Rx Instructions: As directed 3x/day albuterol sulfate [Ventolin HFA] 90 mcg/actuation HFA aerosol inhaler 2 puff inhalation Q4-6H PRN (Reason: Bronchospasm) Qty: 18 5RF (DME) pen needle, diabetic [BD Ultra-Fine Micro Pen Needle] 32 gauge x 1/4 needle See Rx Instructions .ROUTE .MEDSUPPLY Qty: 150 11RF Rx Instructions: 5 times a day as directed - Lantus QD and Humalog QID (DME) pen needle, diabetic [BD Nella 2nd Gen Pen Needle] 32 gauge x 5/32 needle See Rx Instructions .ROUTE .MEDSUPPLY Qty: 1200 3RF Rx Instructions: test 5 times per day albuterol sulfate 2.5 mg /3 mL (0.083 %) solution for nebulization 2.5 mg continuous nebulization Q4-6H PRN (Reason: Bronchospasm) Qty: 180 5RF (DME) OneTouch Ultra Test Strip See Rx Instructions .Route Qty: 100 11RF Rx Instructions: 5 times per day (DME) lancets 33 gauge misc See Rx Instructions .ROUTE .MEDSUPPLY Qty: 100 11RF Rx Instructions: 5 times per day gabapentin 400 mg capsule 400 mg PO TID 30 Days Qty: 90 3RF aspirin [Adult Aspirin Regimen] 81 mg tablet,delayed release (DR/EC) 81 mg PO DAILY 90 Days Qty: 90 3RF tramadol 50 mg tablet 50 mg PO TID PRN (Reason: pain) 30 Days Qty: 90 0RF losartan 100 mg tablet 100 mg PO DAILY 90 Days Qty: 90 3RF cholecalciferol (vitamin D3) 125 mcg (5,000 unit) capsule 5,000 unit PO DAILY 30 Days Qty: 30 1RF risperidone [Risperdal] 0.5 mg tablet 0.5 mg PO BID 30 Days Qty: 60 1RF Trulicity 0.75 mg/0.5 mL pen injector 0.75 mg subcut QWEEK Qty: 2 3RF ezetimibe [Zetia] 10 mg tablet 10 mg PO DAILY 90 Days Qty: 90 1RF folic acid 1 mg Tablet 1 mg PO DAILY Qty: 90 4RF lorazepam [Ativan] 1 mg tablet 1 mg PO DAILY celecoxib [Celebrex] 100 mg capsule 100 mg PO BID insulin aspart U-100 [Novolog FlexPen U-100 Insulin] 100 unit/mL (3 mL) insulin pen 0 sliding scale dose subcut QIDACHS Protocol: Insulin Correction Scale Less than or equal to 110 ---- Give (units): 0 111 to 150 Give (units): 0 151 to 200 Give (units): 2 201 to 250 Give (units): 4 251 to 300 Give (units): 6 301 to 350 Give (units): 8 Greater than 350 Give (units): 10 Call MD if Blood Glucose > : 350 Rx Instructions: Take 2 to 10 units, dosed PER SLIDING SCALE, 4 times a day - with meals and at bedtime, subcutaneously; clopidogrel 75 mg Tablet 75 mg PO DAILY Qty: 30 0RF atorvastatin [Lipitor] 80 mg tablet 80 mg PO BEDTIME Qty: 30 0RF cyanocobalamin (vitamin B-12) 1,000 mcg capsule 1,000 mcg PO DAILY ascorbate calcium (vitamin C) 500 mg tablet 500 mg PO DAILY omeprazole 20 mg capsule,delayed release(DR/EC) 20 mg PO DAILY (DME) LIGHTWEIGHT WHEELCHAIR See Rx Instructions .Route .MEDSUPPLY Qty: 1 0RF Rx Instructions: As directed insulin glargine [Lantus Solostar U-100 Insulin] 100 unit/mL (3 mL) insulin pen 30 unit subcut QPM 30 Days Qty: 9 3RF ondansetron 8 mg tablet,disintegrating 8 mg PO Q8H PRN (Reason: nausea and vomiting) Qty: 30 2RF (DME) blood-glucose meter [FreeStyle Reed Lite] Kit See Rx Instructions .ROUTE .MEDSUPPLY Qty: 1 0RF Rx Instructions: As directed carvedilol [Coreg] 25 mg tablet 25 mg PO BID 90 Days Qty: 180 3RF Rx Instructions: must administer with a meal/food
[2023-06-10 23:58] LABS: Appearance Urine Clear; Color Urine Yellow; Glucose Urine UA Negative (Negative); Leukocyte Esterase Urine Small (1+) (Negative); Nitrite Urine Negative (Negative); PH 5.5 (5.0-9.0); UMIC TRIGGER UACC YES; Urine Blood Negative (Negative); Urine Ketones Trace mg/dL (Negative); Urine Protein Trace mg/dL (Neg-Trace)
[2023-06-11 00:07] LABS: Bacteria Urine None Seen (None Seen); RBC Urine 0-2 /HPF (0-2); UACC Culture Trigger YES; WBC Urine 0-5 /HPF (0-5)
[2023-06-11] MEDS: Acetaminophen 325 MG TABLET 975 MG PO (00:08)
[2023-06-11] MEDS: Ibuprofen 400 MG TABLET PO (00:09)
[2023-06-11] MEDS: Oseltamivir Phosphate 75 MG CAPSULE PO (00:09)
[2023-06-11 00:41] VITALS: BP 125/65; PULSE 95; RESP 18; TEMP 37.7; O2SAT 95
== END 2023-06-11 00:43 | disposition home or self-care (01) ==
PROVIDERS: Emergency Provider Student in an Organized Health Care Education/Training Program; PCP Internal Medicine
DX: J10.1 Influenza due to other identified influenza virus with other respiratory manifestations (principal); B34.9 Viral infection, unspecified; R05.9 Cough, unspecified; R07.89 Other chest pain; R35.0 Frequency of micturition; R41.0 Disorientation, unspecified; Z11.52 Encounter for screening for COVID-19; Z20.822 Contact with and (suspected) exposure to COVID-19; Z79.899 Other long term (current) drug therapy
CPT/HCPCS: 0241U; 36415; 71046; 80053; 81001; 83735; 84484; 85025; 85610; 87086; 93005; 99283; 99284

== ENCOUNTER → 2023-06-10 22:23 | Outpatient (BNV) | payer OTHER, MEDICAID, SELFPAY | PROVIDERS: Emergency Provider Student in an Organized Health Care Education/Training Program; PCP Internal Medicine; Visit Provider Internal Medicine | DX: R07.9 Chest pain, unspecified (principal) | CPT/HCPCS: 93010 ==

== ENCOUNTER 2023-07-08 16:27 | Outpatient (AMB) | payer OTHER, MEDICAID, SELFPAY ==
[2023-07-08 16:30] VITALS: BP 148/70; PULSE 66; O2SAT 97
--- NOTE | 2023-07-08 16:30 | MHC.PC.OV ---
Vital Signs 07/08/23 16:30 Height 5 ft 6 in BMI Reason not done Patient refused/unable BP 148/70 H Blood Pressure Location Lt brachial Position Sitting Pulse 66 Pulse Source Pulse Oximeter Pulse Oximetry (%) 97 Oxygen Delivery Method Room Air Intake Visit Reasons: [facility]F [facility] Stroke 06/07/23 Intake Note: Patient is here for hospital discharge follow up. 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: No Allergies Penicillins [PENICILLINS] Allergy (Severe, Verified 07/08/23 16:43) SOB, rash, itching codeine [CODEINE] Allergy (Intermediate, Verified 07/08/23 16:43) RASH SOB oxycodone [From PERCOCET] Allergy (Intermediate, Verified 07/08/23 16:43) RASH SOB kiwi [KIWI] Allergy (Mild, Verified 07/08/23 16:43) ITCHY IF TOUCHES pineapple [PINEAPPLE] Allergy (Mild, Verified 07/08/23 16:43) ITCHY IF TOUCHES metformin Adverse Reaction (Intermediate, Verified 07/08/23 16:43) dizziness, blurred vision Medication List - Last Reconciled 07/08/23 by Erick Villanueva MD albuterol sulfate 2.5 mg (3 mL) continuous nebulization Q4-6H PRN ascorbate calcium (vitamin C) 500 mg PO DAILY aspirin (Adult Aspirin Regimen) 81 mg PO DAILY 90 days atorvastatin 40 mg PO BEDTIME blood sugar diagnostic (OneTouch Ultra Test strips) 5 times per day blood sugar diagnostic (FreeStyle Lite Strips) As directed to test blood sugar three times a day blood-glucose meter (FreeStyle [place] Lite kit) As directed blood-glucose meter (OneTouch Ultra2 Meter kit) As directed 3x/day carvedilol (Coreg) 25 mg PO BID 90 days cholecalciferol (vitamin D3) 5,000 units PO DAILY 30 days clopidogrel 75 mg PO DAILY [compression stockings Use daily as directed as needed, strength - medium; length - knee high ] cyanocobalamin (vitamin B-12) 1,000 mcg PO DAILY dulaglutide (Trulicity) 0.75 mg (0.5 mL) subcut QWEEK folic acid 1 mg PO DAILY gabapentin 400 mg PO TID 30 days insulin aspart U-100 (Novolog FlexPen U-100 Insulin aspart) See Protocol Take 2 to 10 units, dosed PER SLIDING SCALE, 4 times a day - with meals and at bedtime, subcutaneously; insulin glargine (Lantus Solostar U-100 Insulin) 30 units (0.3 mL) subcut QPM 30 days lancets 5 times per day lancets (FreeStyle Lancets) As directed test blood sugar three times a day lansoprazole 15 mg PO DAILY [LIGHTWEIGHT STANDARD WHEELCHAIR As directed] [LIGHTWEIGHT WHEELCHAIR As directed] lorazepam (Ativan) 1 mg PO DAILY losartan 100 mg PO DAILY 90 days pen needle, diabetic (BD Nella 2nd Gen Pen Needle) test 5 times per day pen needle, diabetic (BD Ultra-Fine Micro Pen Needle) 5 times a day as directed - Lantus QD and Humalog QID risperidone (Risperdal) 0.5 mg PO BID 30 days tramadol 50 mg PO TID PRN 30 days [Transport wheel chair As directed] Ventolin HFA 90 mcg/actuation (albuterol sulfate) 2 puffs inhalation Q4-6H PRN NS Tobacco use date assessed: 07/08/23 Fall risk assessment: No Falls in past year Last assessed Fall Risk: 07/08/23 Dental Screening Dental Screen Date: 04/28/23 [facility] Stroke 06/07/23 HPI Details Patient comes in today for her [facility] follow up visit She was initially admitted briefly to [facility] early last month for worsening of her right-sided weakness to the point where she could not walk As she arrived outside the thrombolytic window, she was not a candidate for thrombolysis treatment Brain MRI done revealed (+) small acute white matter infarct within the deep white matter of the left frontal lobe She was seen by neurology and recommend adding Clopidogrel and statin Tx to her Aspirin 81 mg QD and she was subsequently discharged to short-term rehab at [facility] but she started experiencing retrosternal chest pains after a few hours at rehab and was sent to [facility] for further evaluation Patient's EKG at the ER showed T-wave inversions in the anterolateral leads and she was admitted for further evaluation Cardiac workups done at the hospital were negative, troponin x3 negative and her EKG showed no changes from previous and she was then subsequently discharged back to [facility] for continue PT and OT She was eventually discharged home after a couple of weeks on 06/10/2023 and she is presently continuing with home physical therapy She has not yet seen or followed up with Neurology since her discharge and currently has no appointment scheduled States that she is currently still experiencing some on and off chest pains; she denies any increased shortness of breath Denies any headaches or dizziness No nausea/vomiting, no abdominal pain No change in bowel habits noted She still has frequent dystonic movements on her right side, with right hemiparesis Needs her Tramadol and a few other Rx refilled States that she would also like to get a prescription for her own wheelchair Patient's daughter also needs her FMLA form filled out so she can take time off as needed to help her mother with her ADLs as well as with her appointments and follow-up visits [facility] Medical History (Updated 07/09/23 @ 02:47 by Erick Villanueva MD) CVA (cerebral vascular accident) Bleeding hemorrhoids Carpal tunnel syndrome, bilateral Internal and external hemorrhoids without complication Diverticulosis Rectal bleed Varicose veins of both lower extremities with pain Hx pulmonary embolism Rectal bleeding Obesity (BMI 30-39.9) Overactive bladder Migraine GERD without esophagitis Allergic rhinitis Fibromyalgia Vitamin B12 deficiency Asthma Bilateral primary osteoarthritis of knee Pure hypercholesterolemia Benign essential hypertension Bilateral lower extremity edema Mammogram abnormal Intertrigo Breast nodule Goiter Vitamin D deficiency HLD (hyperlipidemia) T2DM (type 2 diabetes mellitus) Arthritis Breast pain, right Calcific tendinitis of right hip Right lumbar radiculopathy Right hip pain Low back pain Surgical History Hx of breast surgery History of colonoscopy History of mammogram History of incision and drainage Hx of cataract extraction Hx of cholecystectomy Hx of tubal ligation Hx of eye surgery History of tonsillectomy and adenoidectomy Family History Father Hypertension Myocardial infarction Stroke Mother Hypertension Diabetes Social History Household Members: Spouse, Family and Children Housing: House Are you a primary progressive care nurse to a significant other at home: No Do you presently have visiting nurse or other home services: No Alcohol intake: never Patient Tobacco Use Status: Never used Tobacco e-Cigarette/Vaping Use: Never Used Second Hand Smoke Exposure: No service: No Current occupational status: disabled Cognitive needs: No Hearing needs: No Vision needs: Yes Questionnaire Thrive Questionnaire Date Thrive assessed: 05/27/23 AUDIT C Alcohol Use Questionnaire (AUDIT-C) 1. How often do you have a drink containing alcohol?: Never 3. How often do you have six or more drinks on one occasion?: Never Total Score: 0 Score Reviewed/Action Taken: Yes LELE-7 AMB Questionnaire LELE-7 Date LELE - 7 assessed: 04/28/23 Source: Developed by Drs. Taj Willson, Elaine Tsai, Dyllan Singh and colleagues, with an educational cory from [employer]. Review of Systems Const Denies chills, Reports fatigue, Denies fever(s) and Denies headache(s) ENT Denies dysphagia, Denies dizziness, Denies otalgia, Denies headache(s), Reports neck pain, Denies odynophagia and Denies sore throat Card Reports chest pain (on and off), Denies rapid heart rate, Denies palpitations and Reports dyspnea on exertion (mild) Resp Denies cough and Reports dyspnea on exertion (mild) GI Denies abdominal pain, Denies dysphagia, Denies nausea, Denies odynophagia and Denies vomiting Denies nocturia, Denies dysuria and Denies urinary urgency Musc Details: (+) pain over her entire right side, from the neck and shoulder down to the leg Reports arthralgias (involving both shoulders, right elbow, arm and leg; R knee), Denies joint swelling, Reports neck pain and Reports numbness (on and off, over the fingers of the right hand) Skin/Breast Denies rash Neuro Details: (+) recurrent, involuntary movements involving primarily the right side of the face and right arm/hand Denies dizziness, Denies headache(s) and Reports numbness (on and off, over the fingers of the right hand) Psych Reports anxiety and Reports depression Endo Reports fatigue and Denies palpitations Physical exam (Primary Care) Vital Signs: Last Vital Signs Pulse 66 07/08/23 16:30 BP 148/70 H 07/08/23 16:30 Pulse Ox 97 07/08/23 16:30 Oxygen Delivery Method Room Air 07/08/23 16:30 Tobacco/Smoking Status: Tobacco use Status Tobacco use date assessed 07/08/23 07/08/23 16:34 Patient Tobacco Use Status Never used Tobacco 07/08/23 16:34 e-Cigarette/Vaping Use Never Used 07/08/23 16:34 Thrive Assessment: Date of Thrive Assessment Date Thrive assessed 05/27/23 07/08/23 16:34 Const General: no acute distress and alert HENMT Throat: Yes posterior oropharynx normal and Yes tonsils normal (no TP congestion noted) Neck Neck: Yes no lymphadenopathy, Yes supple and Yes tender (over the cervical spine on exam) Thyroid: Thyroid normal Resp Auscultation: clear to auscultation bilaterally, no rales and no wheezes Cardio Rate: regular rate Rhythm: regular rhythm Heart sounds: no murmurs GI Palpation (GI): Soft to palpation and nontender Auscultation: normal bowel sounds Back/Spine/Pelvis Cervical Spine: cervical muscular tenderness (bilateral) and Cervical spine tenderness Thoracic/Lumbar Spine: paraspinal muscle tenderness bilaterally in the upper thoracic and lumbar spinal tenderness Skin Rashes: no rashes Neuro Other: right hemiparesis Cognition (Neuro): normal cognition Gait exam (Neuro): Antalgic gait present and Assistive device used (cane) Motor exam (neuro): Motor abnormalites present dystonia (involving mainly the right side of the face and the right arm) Extrem General: No clubbing, No cyanosis and Yes edema (1+ bipedal edema) Right upper extremity: shoulder/upper arm Details: tenderness Location: of the A-C joint; no swelling, elbow/forearm Details: tenderness Location: of the olecranon and of the lateral epicondyle and wrist Details: tenderness Location: of the volar wrist (on deep palpation) Right lower extremity: knee Details: tenderness and swelling (mild) Left lower extremity: knee Details: tenderness, swelling (mild) and crepitus Assessment and Plan Assessment & Plan (1) CVA (cerebral vascular accident): Code(s): I63.9 - Cerebral infarction, unspecified Qualifiers: CVA mechanism: unspecified Qualified Code(s): I63.9 - Cerebral infarction, unspecified Plan: S/P CVA in May 2022; new CVA in May 2023 - repeat brain MRI revealed (+) new small acute white matter infarct within the deep white matter of the left frontal lobe Continue Aspirin 81 mg QD, Clopidogrel 75 mg QD and high dose statins Follow up with neurology as scheduled - family is instructed to call up neurology to schedule a follow up appt for her LIDIA Per request, patient's daughter's FMLA for filled out and completed (2) Hemiparesis affecting right side as late effect of cerebrovascular accident (CVA): Code(s): I69.351 - Hemiplegia and hemiparesis following cerebral infarction affecting right dominant side Plan: S/P PT and OT at [facility] last month - discharged on 06/10/2023 She is currently still receiving home PT Rx for standard lightweight wheelchair provided to patient (3) Dystonia: Code(s): G24.9 - Dystonia, unspecified Plan: This is likely a sequelae of her previous CVA in May 2022 and may gradually subside over time although there is no guarantee on this (4) Pure hypercholesterolemia: Code(s): E78.00 - Pure hypercholesterolemia, unspecified Plan: Cautioned again that her cholesterol level back in December 2021 were very high and had increased further from previous - total cholesterol was at 293 mg/dl and LDL cholesterol was at 194 mg/dl She was finally able to get her fasting lipids rechecked last month (May 2023), with her total cholesterol now still at 275 mg/dl and LDL at 169 mg/dl She was previously on Rosuvastatin 40 mg QD and Ezetimibe 10 mg QD but since her hospital admission last month, her Rx was changed to Atorvastatin 40 mg QD alone Will have her continue on this for now and see how her numbers are when she has her follow up labs done next month Reinforced low cholesterol diet If her cholesterol numbers have not improved significantly by next month, may need to consider starting her on one of the newer PCSK9 inhibitors for better efficacy (5) 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: Code(s): E11.9 - Type 2 diabetes mellitus without complications Qualifiers: 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 type: type 2 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 fci insulin use: without fci use 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 complication status: with hyperglycemia Qualified Code(s): E11.65 - Type 2 diabetes mellitus with hyperglycemia Plan: In-office HgbA1c was >14.0% a couple of months ago - goal is <7.0% Reinforced diabetic diet Continue Metformin ER 1000 mg BID, Lantus 30 units Q HS, Trulicity 0.75 mg once a week and Humalog 2 to 10 units with meals and at bedtime per sliding scale for now Follow up with endocrinology as scheduled Will try to send in Rx for CGM to help patient better monitor and manage her blood sugar (6) Benign essential hypertension: Code(s): I10 - Essential (primary) hypertension Plan: Reinforced low-sodium diet - goal is systolic BP of at least 120-130 mm or less Continue Losartan 100 mg QD and Carvedilol 25 mg BID Follow up with cardiology as scheduled (7) Personal history of pulmonary embolism: Code(s): Z86.711 - Personal history of pulmonary embolism Plan: Was taken off Coumadin and switched over to Apixaban 2.5 mg BID by hematology last year as patient has not had any recurrence of her embolism for years This was discontinued and patient was started instead on Clopidogrel 75 mg QD after her recent CVA Follow up with hematology/oncology as scheduled (8) PMR (polymyalgia rheumatica): Code(s): M35.3 - Polymyalgia rheumatica Plan: Patient is currently OFF Prednisone; was previously on Prednisone at 60 mg QD and her diffuse pain have improved considerably with the Rx (9) Fibromyalgia: Code(s): M79.7 - Fibromyalgia Plan: Follow up with Rheumatology as scheduled; can also see rheumatology regarding her PMR if she wants Patient again encouraged on regular exercise and physical activity to help manage her symptoms Continue Gabapentin 400 mg 3 times a day (10) Bilateral primary osteoarthritis of knee: Comment: X-rays of the knees done back on 03/15/2016 showed severe tricompartmental arthritis in both knees Symptoms have improved with cortisone injections from Orthopedics as needed Code(s): M17.0 - Bilateral primary osteoarthritis of knee Plan: Patient currently remains very limited with her activity and mobility due to her knee osteoarthritis and her CVA She is advised that her right leg pain is most likely related to her knee OA; had cortisone injections into her knees from [facility] last year and she felt that the injections were the trigger(s) of most of her recent symptoms of dystonia Repeat x-rays of the right knee in April 2023 revealed (+) tricompartment osteoarthritic change of the right knee, most pronounced in the lateral joint space compartment, where degenerative change is severe Follow up with orthopedics ([facility]) as scheduled (11) Right shoulder pain: Code(s): M25.511 - Pain in right shoulder Qualifiers: Chronicity: unspecified Qualified Code(s): M25.511 - Pain in right shoulder Plan: Right shoulder x-rays done last year showed some findings of AC arthritis in the joint Her shoulder symptoms have since improved with physical therapy Continue Tramadol 50 mg TID PRN for pain (12) Carpal tunnel syndrome, bilateral: Code(s): G56.03 - Carpal tunnel syndrome, bilateral upper limbs Plan: EMG and NCV done back in 2014 revealed (+) moderate carpal tunnel syndrome on the right and mild carpal tunnel syndrome on the left side; EMG was normal Advised that she will need a repeat NCV & EMG if she feels that her right hand symptoms are getting worse and if repeat NCV confirms progression and severity of her CTS, will need to consider referral to orthopedics for median nerve release Would not be able to get her EMG and NCV done at this time due to her current dystonic movements (13) Asthma: Code(s): J45.909 - Unspecified asthma, uncomplicated Qualifiers: Asthma severity: moderate Asthma persistence: persistent Asthma complication type: uncomplicated Qualified Code(s): J45.40 - Moderate persistent asthma, uncomplicated Plan: Stable currently Continue Symbicort 160-4.5 mcg 2 inhalations BID, ,Montelukast 10 mg QD and Ventolin HFA 2 inhalations every 6 hours PRN (14) GERD without esophagitis: Comment: Barium swallow done a couple of years ago showed (+) hiatal hernia with (+) significant acid reflux Code(s): K21.9 - Gastro-esophageal reflux disease without esophagitis Plan: Dietary restrictions reinforced Her previous Omeprazole was changed to Lansoprazole 15 mg QD due to potential interactions of Omeprazole with Clopidogrel (15) Vitamin D deficiency: Code(s): E55.9 - Vitamin D deficiency, unspecified Plan: Continue Vitamin D2 89349 units once a week (added by endocrinology) and Vitamin D3 2000 units daily (16) Vitamin B12 deficiency: Code(s): E53.8 - Deficiency of other specified B group vitamins Plan: Continue Vitamin B12 injections 1000 mcg once a month and oral Vitamin B12 tablets 1000 mcg tablets once a day (17) Obesity (BMI 30-39.9): Code(s): E66.9 - Obesity, unspecified Plan: Reinforced diet; exercise and weight loss are unrealistic given patient's comorbidities and recent issues Plan Follow up as scheduled next month Patient is reminded to get her follow-up labs done before she returns for her appointment next month Medications: New [LIGHTWEIGHT STANDARD WHEELCHAIR] As directed 1 ea 0RF I69.351 - Hemiplegia and hemiparesis following cerebral infarction affecting right dominant side flash glucose scanning reader (FreeStyle [place] 2 [place]) As directed 1 ea 5RF E11.9 - Type 2 diabetes mellitus without complications flash glucose sensor (FreeStyle [place] 2 Sensor kit) As directed 1 ea 5RF E11.9 - Type 2 diabetes mellitus without complications Changed From ascorbate calcium (vitamin C) 500 mg PO DAILY To ascorbate calcium (vitamin C) 500 mg PO DAILY 90 days 90 tabs 3RF From cyanocobalamin (vitamin B-12) 1,000 mcg PO DAILY To cyanocobalamin (vitamin B-12) 1,000 mcg PO DAILY 90 days 90 caps 3RF From cholecalciferol (vitamin D3) 5,000 units PO DAILY 30 days 30 caps 1RF E11.9 - Type 2 diabetes mellitus without complications To cholecalciferol (vitamin D3) 5,000 units PO DAILY 90 days 90 caps 3RF E11.9 - Type 2 diabetes mellitus without complications Refilled tramadol 50 mg PO TID 30 days PRN 90 tabs 0RF pain insulin glargine (Lantus Solostar U-100 Insulin) 30 units (0.3 mL) subcut QPM 30 days 9 mL 3RF Coding Level of Care Code Est Pt Level 4 (30822) Diagnoses Cerebrovascular accident (CVA), unspecified mechanism I63.9 CVA mechanism: unspecified Hemiparesis affecting right side as late effect of cerebrovascular accident (CVA) I69.351 Dystonia G24.9 Pure hypercholesterolemia E78.00 Type 2 diabetes mellitus with hyperglycemia, without long-term current use of insulin E11.65 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 type: type 2 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 fci insulin use: without local intermodal truck driver use 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 complication status: with hyperglycemia Benign essential hypertension I10 Personal history of pulmonary embolism Z86.711 PMR (polymyalgia rheumatica) M35.3 Fibromyalgia M79.7 Bilateral primary osteoarthritis of knee M17.0 Right shoulder pain, unspecified chronicity M25.511 Chronicity: unspecified Carpal tunnel syndrome, bilateral G56.03 Moderate persistent asthma without complication J45.40 Asthma severity: moderate Asthma persistence: persistent Asthma complication type: uncomplicated GERD without esophagitis K21.9 Vitamin D deficiency E55.9 Vitamin B12 deficiency E53.8 Obesity (BMI 30-39.9) E66.9
== END 2023-07-08 17:36 | disposition home or self-care (01) ==
PROVIDERS: PCP Internal Medicine; Visit Provider Internal Medicine
DX: E11.65 Type 2 diabetes mellitus with hyperglycemia (principal); I69.351 Hemiplegia and hemiparesis following cerebral infarction affecting right dominant side; M35.3 Polymyalgia rheumatica; G24.9 Dystonia, unspecified; E78.00 Pure hypercholesterolemia, unspecified; I10 Essential (primary) hypertension; Z86.711 Personal history of pulmonary embolism; M79.7 Fibromyalgia; M17.0 Bilateral primary osteoarthritis of knee; M25.511 Pain in right shoulder; G56.03 Carpal tunnel syndrome, bilateral upper limbs; J45.40 Moderate persistent asthma, uncomplicated
CPT/HCPCS: 99214

== ENCOUNTER 2023-07-22 09:20 | Outpatient (REF) | payer OTHER, MEDICAID, SELFPAY ==
[2023-07-22 09:48] LABS: MANUAL DIFF FLAG NO
[2023-07-22 10:53] LABS: Basophils Percent Auto 0.2 % (0-2); Hematocrit 30.7 % (37.0-47.0); Hemoglobin 9.6 g/dl (12.0-16.0); Mean Corpuscular HGB Conc 31.3 g/dl (31.0-35.0); Mean Corpuscular Hemoglobin 26.4 pg (27.0-33.0); Mean Corpuscular Volume 84.3 fL (80.0-98.0); Neutrophils Absolute Auto 2.6 x10*3/uL (2.0-8.3); Platelet Count 317 X10*3/uL (160-400); Red Blood Count 3.64 X10*6/uL (4.20-5.50); White Blood Count 4.9 X10*3/uL (4.8-10.8)
[2023-07-22 11:22] LABS: Estimated Average Glucose 220 mg/dL; Hemoglobin A1c % 9.3 % (<6.0)
[2023-07-22 11:54] LABS: Alanine Aminotransferase 10 U/L (0-31); Albumin Level 3.6 g/dL (3.5-5.0); Alkaline Phosphatase 66 U/L (39-117); Aspartate Amino Transferase 10 U/L (5-31); Bilirubin Total 0.5 mg/dL (0.0-1.0); Calcium 8.9 mg/dL (8.4-10.2); Chloride 106 mmol/L (96-108); Cholesterol 222 mg/dL (<200); Estimated Glomerular Filt Rate > 60; Glucose Fasting 196 mg/dL (60-99); HDL Cholesterol 66 mg/dL (>40); LDL Cholesterol Calculated 141 mg/dL (<100); Potassium 3.3 mmol/L (3.3-5.1); Sodium 142 mmol/L (135-145); Total Protein 6.4 g/dL (6.5-8.0); Triglycerides 77 mg/dL (<150)
[2023-07-22 11:55] LABS: Vitamin D 25-OH Total 28.2 ng/mL (>30)
[2023-07-22 12:15] LABS: Appearance Urine Clear; Color Urine Yellow; Glucose Urine UA Negative (Negative); Leukocyte Esterase Urine Negative (Negative); Nitrite Urine Negative (Negative); PH 5.5 (5.0-9.0); Urine Blood Negative (Negative); Urine Ketones Negative (Negative); Urine Protein Trace mg/dL (Neg-Trace)
[2023-07-22 12:45] LABS: Creatinine Urine 136.77 mg/dL; Microalbum/Creatinine Ratio Ur 10.2 ug/mg cr (<30)
[2023-07-25 05:39] LABS: Methylmalonic Acid 154 nmol/L (87-318)
== END 2023-07-22 09:21 | disposition home or self-care (01) ==
LOC: HO.LAB 09:20
PROVIDERS: Visit Provider Internal Medicine
DX: R30.0 Dysuria (principal); E53.8 Deficiency of other specified B group vitamins; E78.00 Pure hypercholesterolemia, unspecified; E11.9 Type 2 diabetes mellitus without complications; D64.9 Anemia, unspecified; E55.9 Vitamin D deficiency, unspecified
CPT/HCPCS: 36415; 80053; 80061; 81003; 82043; 82306; 82570; 82607; 82746; 83036; 83921; 84443; 85025

== ENCOUNTER 2023-07-28 12:27 | Outpatient (AMB) | payer OTHER, MEDICAID, SELFPAY ==
[2023-07-28 12:30] VITALS: BP 130/68; PULSE 76; O2SAT 98; BMI 30.4
--- NOTE | 2023-07-28 12:30 | A.OFFPC_ITS ---
Vital Signs 07/28/23 12:30 Height 5 ft 6 in Weight 188 lb 7.924 oz BMI 30.4 BP 130/68 Blood Pressure Location Lt brachial Position Sitting Pulse 76 Pulse Source Pulse Oximeter Pulse Oximetry (%) 98 Oxygen Delivery Method Room Air Intake Visit Reasons: dystonia, DM Intake Note: Patient is here to follow up Portfolio Assistant Required: No Allergies Penicillins [PENICILLINS] Allergy (Severe, Verified 07/28/23 12:52) SOB, rash, itching codeine [CODEINE] Allergy (Intermediate, Verified 07/28/23 12:52) RASH SOB oxycodone [From PERCOCET] Allergy (Intermediate, Verified 07/28/23 12:52) RASH SOB kiwi [KIWI] Allergy (Mild, Verified 07/28/23 12:52) ITCHY IF TOUCHES pineapple [PINEAPPLE] Allergy (Mild, Verified 07/28/23 12:52) ITCHY IF TOUCHES metformin Adverse Reaction (Intermediate, Verified 07/28/23 12:52) dizziness, blurred vision Medication List - Last Reconciled 07/28/23 by Erick Villanueva MD albuterol sulfate 2.5 mg (3 mL) continuous nebulization Q4-6H PRN ascorbate calcium (vitamin C) 500 mg PO DAILY 90 days aspirin (Adult Aspirin Regimen) 81 mg PO DAILY 90 days atorvastatin 40 mg PO BEDTIME blood sugar diagnostic (OneTouch Ultra Test strips) 5 times per day blood sugar diagnostic (FreeStyle Lite Strips) As directed to test blood sugar three times a day blood-glucose meter (FreeStyle [place] Lite kit) As directed blood-glucose meter (OneTouch Ultra2 Meter kit) As directed 3x/day carvedilol (Coreg) 25 mg PO BID 90 days cholecalciferol (vitamin D3) 5,000 units PO DAILY 90 days clopidogrel 75 mg PO DAILY [compression stockings Use daily as directed as needed, strength - medium; length - knee high ] cyanocobalamin (vitamin B-12) 1,000 mcg PO DAILY 90 days dulaglutide (Trulicity) 0.75 mg (0.5 mL) subcut QWEEK flash glucose scanning reader (VSS MonitoringStTarget Data Carol 2 [place]) As directed flash glucose sensor (FreeStyle Carol 2 Sensor kit) As directed folic acid 1 mg PO DAILY gabapentin 400 mg PO TID 30 days insulin aspart U-100 (Novolog FlexPen U-100 Insulin aspart) See Protocol Take 2 to 10 units, dosed PER SLIDING SCALE, 4 times a day - with meals and at bedtime, subcutaneously; insulin glargine (Lantus Solostar U-100 Insulin) 30 units (0.3 mL) subcut QPM 30 days lancets 5 times per day lancets (FreeStyle Lancets) As directed test blood sugar three times a day lansoprazole 15 mg PO DAILY [LIGHTWEIGHT STANDARD WHEELCHAIR As directed] [LIGHTWEIGHT WHEELCHAIR As directed] lorazepam (Ativan) 1 mg PO DAILY losartan 100 mg PO DAILY 90 days pen needle, diabetic (BD Nella 2nd Gen Pen Needle) test 5 times per day pen needle, diabetic (BD Ultra-Fine Micro Pen Needle) 5 times a day as directed - Lantus QD and Humalog QID risperidone (Risperdal) 0.5 mg PO BID 30 days tramadol 50 mg PO TID PRN 30 days [Transport wheel chair As directed] Ventolin HFA 90 mcg/actuation (albuterol sulfate) 2 puffs inhalation Q4-6H PRN NS Tobacco use date assessed: 07/28/23 Fall risk assessment: No Falls in past year Last assessed Fall Risk: 07/28/23 Dental Screening Dental Screen Date: 04/28/23 HPI dystonia, DM HPI Details Patient comes in today for her follow up visit States that she currently feels okay She denies any headaches or dizziness Denies any chest pains, no SOB No nausea/vomiting, no abdominal pain No change in bowel habits noted Needs a few of her Rx refilled Had her follow up labs done last week - to discuss her results [facility] Medical History (Updated 07/28/23 @ 13:23 by Erick Villanueva MD) CVA (cerebral vascular accident) Bleeding hemorrhoids Carpal tunnel syndrome, bilateral Internal and external hemorrhoids without complication Diverticulosis Rectal bleed Varicose veins of both lower extremities with pain Hx pulmonary embolism Rectal bleeding Obesity (BMI 30-39.9) Overactive bladder Migraine GERD without esophagitis Allergic rhinitis Fibromyalgia Vitamin B12 deficiency Asthma Bilateral primary osteoarthritis of knee Pure hypercholesterolemia Benign essential hypertension Bilateral lower extremity edema Mammogram abnormal Intertrigo Breast nodule Goiter Vitamin D deficiency HLD (hyperlipidemia) T2DM (type 2 diabetes mellitus) Arthritis Breast pain, right Calcific tendinitis of right hip Right lumbar radiculopathy Right hip pain Low back pain Surgical History Hx of breast surgery History of colonoscopy History of mammogram History of incision and drainage Hx of cataract extraction Hx of cholecystectomy Hx of tubal ligation Hx of eye surgery History of tonsillectomy and adenoidectomy Family History Father Hypertension Myocardial infarction Stroke Mother Hypertension Diabetes Social History Household Members: Spouse, Family and Children Housing: House Are you a primary respiratory care instructor to a significant other at home: No Do you presently have visiting nurse or other home services: No Alcohol intake: never Patient Tobacco Use Status: Never used Tobacco e-Cigarette/Vaping Use: Never Used Second Hand Smoke Exposure: No service: No Current occupational status: disabled Cognitive needs: No Hearing needs: No Vision needs: Yes Questionnaire Thrive Questionnaire Date Thrive assessed: 05/27/23 AUDIT C Alcohol Use Questionnaire (AUDIT-C) 1. How often do you have a drink containing alcohol?: Never 3. How often do you have six or more drinks on one occasion?: Never Total Score: 0 Score Reviewed/Action Taken: Yes LELE-7 AMB Questionnaire LELE-7 Date LELE - 7 assessed: 04/28/23 Source: Developed by Drs. Taj Willson, Elaine Tsai, Dyllan Snigh and colleagues, with an educational cory from [employer]. Physical exam (Primary Care) Vital Signs: Last Vital Signs Pulse 76 07/28/23 12:30 BP 130/68 07/28/23 12:30 Pulse Ox 98 07/28/23 12:30 Oxygen Delivery Method Room Air 07/28/23 12:30 BMI result Body Mass Index 30.4 Tobacco/Smoking Status: Tobacco use Status Tobacco use date assessed 07/28/23 07/28/23 12:38 Patient Tobacco Use Status Never used Tobacco 07/28/23 12:38 e-Cigarette/Vaping Use Never Used 07/28/23 12:38 Thrive Assessment: Date of Thrive Assessment Date Thrive assessed 05/27/23 07/28/23 12:38 Assessment and Plan Assessment & Plan (1) CVA (cerebral vascular accident): Code(s): I63.9 - Cerebral infarction, unspecified Qualifiers: CVA mechanism: unspecified Qualified Code(s): I63.9 - Cerebral infarction, unspecified Plan: S/P CVA in May 2022; new CVA in May 2023 - repeat brain MRI revealed (+) new small acute white matter infarct within the deep white matter of the left frontal lobe Continue Aspirin 81 mg QD, Clopidogrel 75 mg QD and high dose statins Follow up with neurology as scheduled - family is instructed to call up neurology to schedule a follow up appt for her LIDIA Per request, patient's daughter's FMLA for filled out and completed (2) Hemiparesis affecting right side as late effect of cerebrovascular accident (CVA): Code(s): I69.351 - Hemiplegia and hemiparesis following cerebral infarction affecting right dominant side Plan: S/P PT and OT at [facility] last month - discharged on 06/10/2023 She is currently still receiving home PT Rx for standard lightweight wheelchair provided to patient (3) Dystonia: Code(s): G24.9 - Dystonia, unspecified Plan: This is likely a sequelae of her previous CVA in May 2022 and may gradually subside over time although there is no guarantee on this (4) Pure hypercholesterolemia: Code(s): E78.00 - Pure hypercholesterolemia, unspecified Plan: Cautioned again that her cholesterol level back in December 2021 were very high and had increased further from previous - total cholesterol was at 293 mg/dl and LDL cholesterol was at 194 mg/dl She was finally able to get her fasting lipids rechecked last month (May 2023), with her total cholesterol now still at 275 mg/dl and LDL at 169 mg/dl She was previously on Rosuvastatin 40 mg QD and Ezetimibe 10 mg QD but since her hospital admission last month, her Rx was changed to Atorvastatin 40 mg QD alone Will have her continue on this for now and see how her numbers are when she has her follow up labs done next month Reinforced low cholesterol diet If her cholesterol numbers have not improved significantly by next month, may need to consider starting her on one of the newer PCSK9 inhibitors for better efficacy (5) 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: Code(s): E11.9 - Type 2 diabetes mellitus without complications Qualifiers: 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 type: type 2 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 director of field sales insulin use: without mcfp use 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 complication status: with hyperglycemia Qualified Code(s): E11.65 - Type 2 diabetes mellitus with hyperglycemia Plan: In-office HgbA1c was >14.0% a couple of months ago - goal is <7.0% Reinforced diabetic diet Continue Metformin ER 1000 mg BID, Lantus 30 units Q HS, Trulicity 0.75 mg once a week and Humalog 2 to 10 units with meals and at bedtime per sliding scale for now Follow up with endocrinology as scheduled Will try to send in Rx for CGM to help patient better monitor and manage her blood sugar (6) Benign essential hypertension: Code(s): I10 - Essential (primary) hypertension Plan: Reinforced low-sodium diet - goal is systolic BP of at least 120-130 mm or less Continue Losartan 100 mg QD and Carvedilol 25 mg BID Follow up with cardiology as scheduled (7) Personal history of pulmonary embolism: Code(s): Z86.711 - Personal history of pulmonary embolism Plan: Was taken off Coumadin and switched over to Apixaban 2.5 mg BID by hematology last year as patient has not had any recurrence of her embolism for years This was discontinued and patient was started instead on Clopidogrel 75 mg QD after her recent CVA Follow up with hematology/oncology as scheduled (8) PMR (polymyalgia rheumatica): Code(s): M35.3 - Polymyalgia rheumatica Plan: Patient is currently OFF Prednisone; was previously on Prednisone at 60 mg QD and her diffuse pain have improved considerably with the Rx (9) Fibromyalgia: Code(s): M79.7 - Fibromyalgia Plan: Follow up with Rheumatology as scheduled; can also see rheumatology regarding her PMR if she wants Patient again encouraged on regular exercise and physical activity to help manage her symptoms Continue Gabapentin 400 mg 3 times a day (10) Bilateral primary osteoarthritis of knee: Comment: X-rays of the knees done back on 03/15/2016 showed severe tricompartmental arthritis in both knees Symptoms have improved with cortisone injections from Orthopedics as needed Code(s): M17.0 - Bilateral primary osteoarthritis of knee Plan: Patient currently remains very limited with her activity and mobility due to her knee osteoarthritis and her CVA She is advised that her right leg pain is most likely related to her knee OA; had cortisone injections into her knees from [facility] last year and she felt that the injections were the trigger(s) of most of her recent symptoms of dystonia Repeat x-rays of the right knee in April 2023 revealed (+) tricompartment osteoarthritic change of the right knee, most pronounced in the lateral joint space compartment, where degenerative change is severe Follow up with orthopedics ([facility]) as scheduled (11) Right shoulder pain: Code(s): M25.511 - Pain in right shoulder Qualifiers: Chronicity: unspecified Qualified Code(s): M25.511 - Pain in right shoulder Plan: Right shoulder x-rays done last year showed some findings of AC arthritis in the joint Her shoulder symptoms have since improved with physical therapy Continue Tramadol 50 mg TID PRN for pain (12) Carpal tunnel syndrome, bilateral: Code(s): G56.03 - Carpal tunnel syndrome, bilateral upper limbs Plan: EMG and NCV done back in 2014 revealed (+) moderate carpal tunnel syndrome on the right and mild carpal tunnel syndrome on the left side; EMG was normal Advised that she will need a repeat NCV & EMG if she feels that her right hand symptoms are getting worse and if repeat NCV confirms progression and severity of her CTS, will need to consider referral to orthopedics for median nerve release Would not be able to get her EMG and NCV done at this time due to her current dystonic movements (13) Asthma: Code(s): J45.909 - Unspecified asthma, uncomplicated Qualifiers: Asthma severity: moderate Asthma persistence: persistent Asthma complication type: uncomplicated Qualified Code(s): J45.40 - Moderate persistent asthma, uncomplicated Plan: Stable currently Continue Symbicort 160-4.5 mcg 2 inhalations BID, ,Montelukast 10 mg QD and Ventolin HFA 2 inhalations every 6 hours PRN (14) GERD without esophagitis: Comment: Barium swallow done a couple of years ago showed (+) hiatal hernia with (+) significant acid reflux Code(s): K21.9 - Gastro-esophageal reflux disease without esophagitis Plan: Dietary restrictions reinforced Her previous Omeprazole was changed to Lansoprazole 15 mg QD due to potential interactions of Omeprazole with Clopidogrel (15) Vitamin D deficiency: Code(s): E55.9 - Vitamin D deficiency, unspecified Plan: Continue Vitamin D2 71870 units once a week (added by endocrinology) and Vitamin D3 2000 units daily (16) Vitamin B12 deficiency: Code(s): E53.8 - Deficiency of other specified B group vitamins Plan: Continue Vitamin B12 injections 1000 mcg once a month and oral Vitamin B12 tablets 1000 mcg tablets once a day (17) Obesity (BMI 30-39.9): Code(s): E66.9 - Obesity, unspecified Plan: Reinforced diet; exercise and weight loss are unrealistic given patient's comorbidities and recent issues Plan Follow up as scheduled next month Patient is reminded to get her follow-up labs done before she returns for her appointment next month Orders: Orders Complete Blood Count Auto Diff 3 Months D64.9 - Anemia, unspecified Hemoglobin A1c 3 Months E11.9 - Type 2 diabetes mellitus without complications TSH reflex Free T4 3 Months E78.00 - Pure hypercholesterolemia, unspecified Lipid Panel 3 Months E78.00 - Pure hypercholesterolemia, unspecified Comprehensive [place]. Panel Fast 3 Months E78.00 - Pure hypercholesterolemia, unspecified Microalbumin, Random (w Creat) 3 Months E11.9 - Type 2 diabetes mellitus without complications UA CC w/rflx Micro + Cult 3 Months R30.0 - Dysuria Vitamin D 25-OH Total 3 Months E55.9 - Vitamin D deficiency, unspecified Vitamin B12 and Folate 3 Months E53.8 - Deficiency of other specified B group vitamins Referrals Hematology & Oncology Referral D64.9 - Anemia, unspecified Medications: Changed From atorvastatin 40 mg PO BEDTIME To atorvastatin 40 mg PO BEDTIME 90 days 90 tabs 1RF From folic acid 1 mg PO DAILY 90 tabs 4RF To folic acid 1 mg PO DAILY 90 days 90 tabs 3RF Refilled tramadol 50 mg PO TID 30 days PRN 90 tabs 0RF pain Coding Diagnoses Cerebrovascular accident (CVA), unspecified mechanism I63.9 CVA mechanism: unspecified Hemiparesis affecting right side as late effect of cerebrovascular accident (CVA) I69.351 Dystonia G24.9 Pure hypercholesterolemia E78.00 Type 2 diabetes mellitus with hyperglycemia, without long-term current use of insulin E11.65 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 type: type 2 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 director of field sales insulin use: without mcfp use 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 complication status: with hyperglycemia Benign essential hypertension I10 Personal history of pulmonary embolism Z86.711 PMR (polymyalgia rheumatica) M35.3 Fibromyalgia M79.7 Bilateral primary osteoarthritis of knee M17.0 Right shoulder pain, unspecified chronicity M25.511 Chronicity: unspecified Carpal tunnel syndrome, bilateral G56.03 Moderate persistent asthma without complication J45.40 Asthma severity: moderate Asthma persistence: persistent Asthma complication type: uncomplicated GERD without esophagitis K21.9 Vitamin D deficiency E55.9 Vitamin B12 deficiency E53.8 Obesity (BMI 30-39.9) E66.9
--- NOTE | 2023-07-28 12:30 | MHC.PC.OV ---
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 Required: No Allergies Penicillins [PENICILLINS] Allergy (Severe, Verified 05/16/24 16:36) SOB, rash, itching codeine [CODEINE] Allergy (Intermediate, Verified 05/16/24 16:36) RASH SOB oxycodone [From PERCOCET] Allergy (Intermediate, Verified 05/16/24 16:36) RASH SOB kiwi [KIWI] Allergy (Mild, Verified 05/16/24 16:36) ITCHY IF TOUCHES pineapple [PINEAPPLE] Allergy (Mild, Verified 05/16/24 16:36) ITCHY IF TOUCHES metformin Adverse Reaction (Intermediate, Verified 05/16/24 16:36) dizziness, blurred vision Medication List - Last Reconciled 07/28/23 by Erick Villanueva MD albuterol sulfate 2.5 mg (3 mL) continuous nebulization Q4-6H PRN ascorbate calcium (vitamin C) 500 mg PO DAILY 90 days aspirin (Adult Aspirin Regimen) 81 mg PO DAILY 90 days atorvastatin 40 mg PO BEDTIME blood sugar diagnostic (OneTouch Ultra Test strips) 5 times per day blood sugar diagnostic (FreeStyle Lite Strips) As directed to test blood sugar three times a day blood-glucose meter (FreeStyle Woodson Lite kit) As directed blood-glucose meter (OneTouch Ultra2 Meter kit) As directed 3x/day carvedilol (Coreg) 25 mg PO BID 90 days cholecalciferol (vitamin D3) 5,000 units PO DAILY 90 days clopidogrel 75 mg PO DAILY [compression stockings Use daily as directed as needed, strength - medium; length - knee high ] cyanocobalamin (vitamin B-12) 1,000 mcg PO DAILY 90 days dulaglutide (Trulicity) 0.75 mg (0.5 mL) subcut QWEEK flash glucose scanning reader (Amplience Carol 2 Auberry) As directed flash glucose sensor (FreeStyle Carol 2 Sensor kit) As directed folic acid 1 mg PO DAILY gabapentin 400 mg PO TID 30 days insulin aspart U-100 (Novolog FlexPen U-100 Insulin aspart) See Protocol Take 2 to 10 units, dosed PER SLIDING SCALE, 4 times a day - with meals and at bedtime, subcutaneously; insulin glargine (Lantus Solostar U-100 Insulin) 30 units (0.3 mL) subcut QPM 30 days lancets 5 times per day lancets (FreeStyle Lancets) As directed test blood sugar three times a day lansoprazole 15 mg PO DAILY [LIGHTWEIGHT STANDARD WHEELCHAIR As directed] [LIGHTWEIGHT WHEELCHAIR As directed] lorazepam (Ativan) 1 mg PO DAILY losartan 100 mg PO DAILY 90 days pen needle, diabetic (BD Nella 2nd Gen Pen Needle) test 5 times per day pen needle, diabetic (BD Ultra-Fine Micro Pen Needle) 5 times a day as directed - Lantus QD and Humalog QID risperidone (Risperdal) 0.5 mg PO BID 30 days tramadol 50 mg PO TID PRN 30 days [Transport wheel chair As directed] Ventolin HFA 90 mcg/actuation (albuterol sulfate) 2 puffs inhalation Q4-6H PRN NS Tobacco use date assessed: 07/28/23 Fall risk assessment: No Falls in past year Last assessed Fall Risk: 07/28/23 Dental Screening Dental Screen Date: 04/28/23 HPI dystonia, DM HPI Details Patient comes in today for her follow up visit States that she still has her recurrent right-sided dystonic movements and right-sided pain but she otherwise feels okay She denies any headaches or dizziness lately Denies any chest pains, no increased SOB No nausea/vomiting, no abdominal pain No change in bowel habits noted Needs a few of her Rx refilled She had her follow up labs done last week - to discuss her results [facility] Medical History Primary osteoarthritis, right shoulder CVA (cerebral vascular accident) Bleeding hemorrhoids Carpal tunnel syndrome, bilateral Internal and external hemorrhoids without complication Diverticulosis Rectal bleed Varicose veins of both lower extremities with pain Hx pulmonary embolism Rectal bleeding Obesity (BMI 30-39.9) Overactive bladder Migraine GERD without esophagitis Allergic rhinitis Fibromyalgia Vitamin B12 deficiency Asthma Bilateral primary osteoarthritis of knee Pure hypercholesterolemia Benign essential hypertension Bilateral lower extremity edema Mammogram abnormal Intertrigo Breast nodule Goiter Vitamin D deficiency HLD (hyperlipidemia) T2DM (type 2 diabetes mellitus) Arthritis Breast pain, right Calcific tendinitis of right hip Right lumbar radiculopathy Right hip pain Low back pain Surgical History Hx of breast surgery History of colonoscopy History of mammogram History of incision and drainage Hx of cataract extraction Hx of cholecystectomy Hx of tubal ligation Hx of eye surgery History of tonsillectomy and adenoidectomy Family History Father Hypertension Myocardial infarction Stroke Mother Hypertension Diabetes Social History Household Members: Spouse, Family and Children Housing: House Are you a primary care associate to a significant other at home: No Do you presently have visiting nurse or other home services: No Alcohol intake: never Patient Tobacco Use Status: Never used Tobacco e-Cigarette/Vaping Use: Never Used Second Hand Smoke Exposure: No service: No Current occupational status: disabled Cognitive needs: No Hearing needs: No Vision needs: Yes Questionnaire Thrive Questionnaire Date Thrive assessed: 05/27/23 AUDIT C Alcohol Use Questionnaire (AUDIT-C) 1. How often do you have a drink containing alcohol?: Never 3. How often do you have six or more drinks on one occasion?: Never Total Score: 0 Score Reviewed/Action Taken: Yes LELE-7 AMB Questionnaire LELE-7 Date ELLE - 7 assessed: 04/28/23 Source: Developed by Drs. Taj Willson, Elaine Tsai, Dyllan Singh and colleagues, with an educational cory from [employer]. Review of Systems Const Denies chills, Reports fatigue, Denies fever(s) and Denies headache(s) ENT Denies dysphagia, Denies dizziness, Denies otalgia, Denies headache(s), Reports neck pain, Denies odynophagia and Denies sore throat Card Reports chest pain (on and off), Denies rapid heart rate, Denies palpitations and Reports dyspnea on exertion (mild) Resp Denies cough and Reports dyspnea on exertion (mild) GI Denies abdominal pain, Denies dysphagia, Denies nausea, Denies odynophagia and Denies vomiting Denies nocturia, Denies dysuria and Denies urinary urgency Musc Details: (+) pain over her entire right side, from the neck and shoulder down to the leg Reports arthralgias (involving both shoulders, right elbow, arm and leg; R knee), Denies joint swelling, Reports neck pain and Reports numbness (on and off, over the fingers of the right hand) Skin/Breast Denies rash Neuro Details: (+) recurrent, involuntary movements involving primarily the right side of the face and right arm/hand Denies dizziness, Denies headache(s) and Reports numbness (on and off, over the fingers of the right hand) Psych Reports anxiety and Reports depression Endo Reports fatigue and Denies palpitations Physical exam (Primary Care) Vital Signs: Last Vital Signs Pulse 76 07/28/23 12:30 BP 130/68 07/28/23 12:30 Pulse Ox 98 07/28/23 12:30 Oxygen Delivery Method Room Air 07/28/23 12:30 BMI result Body Mass Index 30.4 Tobacco/Smoking Status: Tobacco use Status Tobacco use date assessed 07/28/23 07/28/23 12:38 Patient Tobacco Use Status Never used Tobacco 07/28/23 12:38 e-Cigarette/Vaping Use Never Used 07/28/23 12:38 Thrive Assessment: Date of Thrive Assessment Date Thrive assessed 05/27/23 07/28/23 12:38 Const General: no acute distress and alert HENMT Throat: Yes posterior oropharynx normal and Yes tonsils normal (no TP congestion noted) Neck Neck: Yes no lymphadenopathy, Yes supple and Yes tender (over the cervical spine on exam) Thyroid: Thyroid normal Resp Auscultation: clear to auscultation bilaterally, no rales and no wheezes Cardio Rate: regular rate Rhythm: regular rhythm Heart sounds: no murmurs GI Palpation (GI): Soft to palpation and nontender Auscultation: normal bowel sounds Back/Spine/Pelvis Cervical Spine: cervical muscular tenderness (bilateral) and Cervical spine tenderness Thoracic/Lumbar Spine: paraspinal muscle tenderness bilaterally in the upper thoracic and lumbar spinal tenderness Skin Rashes: no rashes Neuro Other: right hemiparesis Cognition (Neuro): normal cognition Gait exam (Neuro): Antalgic gait present and Assistive device used (cane) Motor exam (neuro): Motor abnormalites present dystonia (involving mainly the right side of the face and the right arm) Extrem General: No clubbing, No cyanosis and Yes edema (1+ bipedal edema) Right upper extremity: shoulder/upper arm Details: tenderness Location: of the A-C joint; no swelling, elbow/forearm Details: tenderness Location: of the olecranon and of the lateral epicondyle and wrist Details: tenderness Location: of the volar wrist (on deep palpation) Right lower extremity: knee Details: tenderness and swelling (mild) Left lower extremity: knee Details: tenderness, swelling (mild) and crepitus Results Reviewed Results Reviewed: Laboratory Tests 07/22/23 07/22/23 12/31/23 09:47 10:56 04:20 WBC 4.9 6.4 Hgb 9.6 L 11.5 L Hct 30.7 L 35.8 L Plt Count 317 313 Sodium 142 Potassium 3.3 D Creatinine 0.62 Estimated GFR > 60 Fasting Glucose 196 H Hemoglobin A1c % 9.3 H Calcium 8.9 D Total Bilirubin 0.5 AST 10 ALT 10 Triglycerides 77 Cholesterol 222 H LDL Cholesterol, Calc 141 H HDL Cholesterol 66 Vitamin B12 544 25-OH Vitamin D Total 28.2 L TSH 0.52 Urine pH 5.5 Ur Specific Rowan 1.020 Urine Protein Trace Urine Glucose (UA) Negative Urine Blood Negative Urine Nitrite Negative Ur Leukocyte Esterase Negative Microalb/Creat Ratio 10.2 Coding Level of Care Code Est Pt Level 4 (84935) Diagnoses Cerebrovascular accident (CVA), unspecified mechanism I63.9 CVA mechanism: unspecified Hemiparesis affecting right side as late effect of cerebrovascular accident (CVA) I69.351 Dystonia G24.9 Pure hypercholesterolemia E78.00 Type 2 diabetes mellitus with hyperglycemia, without long-term current use of insulin E11.65 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 complication status: with hyperglycemia 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 halfway insulin use: without halfway use 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 type: type 2 Benign essential hypertension I10 Personal history of pulmonary embolism Z86.711 PMR (polymyalgia rheumatica) M35.3 Fibromyalgia M79.7 Bilateral primary osteoarthritis of knee M17.0 Right shoulder pain, unspecified chronicity M25.511 Chronicity: unspecified Carpal tunnel syndrome, bilateral G56.03 Moderate persistent asthma without complication J45.40 Asthma complication type: uncomplicated Asthma persistence: persistent Asthma severity: moderate GERD without esophagitis K21.9 Vitamin D deficiency E55.9 Vitamin B12 deficiency E53.8 Obesity (BMI 30-39.9) E66.9
== END 2023-07-28 13:30 | disposition home or self-care (01) ==
PROVIDERS: PCP Internal Medicine; Visit Provider Internal Medicine
DX: I63.9 Cerebral infarction, unspecified (principal); I69.351 Hemiplegia and hemiparesis following cerebral infarction affecting right dominant side; G24.9 Dystonia, unspecified; E78.00 Pure hypercholesterolemia, unspecified; E11.65 Type 2 diabetes mellitus with hyperglycemia; I10 Essential (primary) hypertension; Z86.711 Personal history of pulmonary embolism; M35.3 Polymyalgia rheumatica; M79.7 Fibromyalgia; M17.0 Bilateral primary osteoarthritis of knee; M25.511 Pain in right shoulder; G56.03 Carpal tunnel syndrome, bilateral upper limbs; J45.40 Moderate persistent asthma, uncomplicated; K21.9 Gastro-esophageal reflux disease without esophagitis; E55.9 Vitamin D deficiency, unspecified; E53.8 Deficiency of other specified B group vitamins; E66.9 Obesity, unspecified
CPT/HCPCS: 99499

== ENCOUNTER 2023-08-11 13:27 | Outpatient (AMB) | payer OTHER, SELFPAY ==
[2023-08-11 13:29] VITALS: BP 130/70; PULSE 60
--- NOTE | 2023-08-11 13:29 | MHC.OFFVIS ---
Vital Signs 08/11/23 13:29 Height 5 ft 6 in BP 130/70 Blood Pressure Location Rt brachial Position Sitting Pulse 60 Pulse Source Pulse Oximeter Intake Visit Reasons: DM2, previously Dr. Padilla[facility] Intake Note: Patient present today to follow up on Type 2 Diabetes Mellitus. Last seen by Dr. Freitas on 09/15/22. Last Diabetic Eye exam: 06/26/2023 [facility] Last Podiatry Visit: Doesn't have one Random Glucose: 113 mg/dl HgA1C: 9.3% 07/22/2023 Head Of Operation And Logistics Required: No Accompanied by: Daughter Allergies Penicillins [PENICILLINS] Allergy (Severe, Verified 08/11/23 13:35) SOB, rash, itching codeine [CODEINE] Allergy (Intermediate, Verified 08/11/23 13:35) RASH SOB oxycodone [From PERCOCET] Allergy (Intermediate, Verified 08/11/23 13:35) RASH SOB kiwi [KIWI] Allergy (Mild, Verified 08/11/23 13:35) ITCHY IF TOUCHES pineapple [PINEAPPLE] Allergy (Mild, Verified 08/11/23 13:35) ITCHY IF TOUCHES metformin Adverse Reaction (Intermediate, Verified 08/11/23 13:35) dizziness, blurred vision HPI Comments Details: 67 YO F with PMHx T2DM who is seen in F/U for T2DM. The patient last saw Dr. Freitas on 09/15/2022 Initially diagnosed with T2DM in 2001. Was initially started on treatment with Metformin. Current regimen Metformin 1000 mg PO BID stopped it , Lantus 30 units AC and Novolog sliding scale AC 2-5 units . . She currently on truclity 0.75 mg once a week and Jardiance 25 mg PO daily but stopped these of her own accord. Unable to review her sugars today. Reports low sugars in the3 X/in last 2 mos Treats lows with juice. Checks sugar after to ensure it is rising. Treats according to rule of 15's. Most recent A1C: 9.3% 07/22/2023, Family history of T2DM in her Mother and Sister. Last eye exam last mo , has retinopathy. Has neuropathy. Refused foot exam today. Has nephropathy, on Losartan 100 mg PO daily. UAC 48.7 12/21/2020. Has HLD, on Atorvastatin 40 mg PO daily and Zetia 10 mg PO daily. LDL 182 12/21/2020. Denies CAD. Has not had diabetes education. Labs: Laboratory Tests 12/21/20 12/21/20 12/21/20 09:19 09:19 09:19 Creatinine 0.71 Estimated GFR > 60 Glucose (Clinic) Hemoglobin A1c % 10.0 LDL Cholesterol, Calc 182 Vitamin B12 < 146 L TSH 1.16 Microalb/Creat Ratio 12/21/20 02/06/21 09:20 12:26 Creatinine Estimated GFR Glucose (Clinic) 393 H* Hemoglobin A1c % LDL Cholesterol, Calc Vitamin B12 TSH Microalb/Creat Ratio 48.7 PFSH Medical History (Updated 07/28/23 @ 13:23 by Erick Villanueva MD) CVA (cerebral vascular accident) Bleeding hemorrhoids Carpal tunnel syndrome, bilateral Internal and external hemorrhoids without complication Diverticulosis Rectal bleed Varicose veins of both lower extremities with pain Hx pulmonary embolism Rectal bleeding Obesity (BMI 30-39.9) Overactive bladder Migraine GERD without esophagitis Allergic rhinitis Fibromyalgia Vitamin B12 deficiency Asthma Bilateral primary osteoarthritis of knee Pure hypercholesterolemia Benign essential hypertension Bilateral lower extremity edema Mammogram abnormal Intertrigo Breast nodule Goiter Vitamin D deficiency HLD (hyperlipidemia) T2DM (type 2 diabetes mellitus) Arthritis Breast pain, right Calcific tendinitis of right hip Right lumbar radiculopathy Right hip pain Low back pain Surgical History Hx of breast surgery History of colonoscopy History of mammogram History of incision and drainage Hx of cataract extraction Hx of cholecystectomy Hx of tubal ligation Hx of eye surgery History of tonsillectomy and adenoidectomy Family History Father Hypertension Myocardial infarction Stroke Mother Hypertension Diabetes Social History Household Members: Spouse, Family and Children Housing: House Are you a primary md do resident urgent care to a significant other at home: No Do you presently have visiting nurse or other home services: No Alcohol intake: never Patient Tobacco Use Status: Never used Tobacco e-Cigarette/Vaping Use: Never Used Second Hand Smoke Exposure: No service: No Current occupational status: disabled Cognitive needs: No Hearing needs: No Vision needs: Yes Physical Exam Vital Signs: Last Vital Signs Pulse 60 08/11/23 13:29 BP 130/70 08/11/23 13:29 Absence of Cushingoid features. Absence of acromegalic features. Neck exam reveals nl size thyroid about 15 gms. No thyroid nodules palpable. No carotid bruits present. Lungs CTA. Heart S1 S2, Reg R/R. No M/R/ G. Skin exam reveals absence of vitiligo or acanthosis nigricans. Abdominal exam reveals Soft NT/ND with NA BS. No organomegaly present. Neck Other: . Extrem Other: Visual exam of foot performed. No ulcerations or open lesions. No onchomycosis, no callouses.Pulses 2 + distally Sensation intact to monofilament exam. Vibratory sensation sensed is decreased with 128 Hz tuning fork Results Reviewed Results Reviewed: Laboratory Last Values Glucose (Clinic) 113 mg/dL (60-115) 08/11/23 13:37 Assessment & Plan Assessment & Plan (1) T2DM (type 2 diabetes mellitus): Code(s): E11.9 - Type 2 diabetes mellitus without complications Category: Medical Plan: This is a 67-year-old female with a history of type 2 diabetes being treated with metformin and basal-bolus insulin with poor glycemic control and known microvascular and macrovascular complications namely neuropathy, CKD and CVA. Plan is to have the patient check her point cares pre and post meals. She had be a good candidate for Carol and I will reinitiate the Carol or Dexcom. I also prescribed glucagon rescue Baqimi. I made appointments with community health educator and litharge mill operator. Can not make any changes to the patient's regimen because of lack of data today. Went over with patient and daughter correlation of poor glycemic control with development and progression of complications. (2) Pure hypercholesterolemia: Code(s): E78.00 - Pure hypercholesterolemia, unspecified Category: Medical Plan: LDL not at goal considering history of CVAs. Will increase atorvastatin to 80 mg recheck lipid profile in about 8 week's time Orders: Orders Lipid Panel 2 Months E78.00 - Pure hypercholesterolemia, unspecified Referrals Diabetes Education Referral E11.9 - Type 2 diabetes mellitus without complications Nutrition/Dietitian Referral E11.9 - Type 2 diabetes mellitus without complications Medications: New glucagon 3 mg/actuation (Baqsimi) 3 mg intranasal ONCE 2 ea 4RF atorvastatin 80 mg PO DAILY 30 tabs 5RF Discontinued atorvastatin Discontinued Reason: Doctor's Order 40 mg PO BEDTIME 90 days 90 tabs 1RF Coding Level of Care Code Est Pt Level 4 (13807) Diagnoses T2DM (type 2 diabetes mellitus) E11.9 Pure hypercholesterolemia E78.00
[2023-08-11 13:41] LABS: Glucose, Whole Blood 113 mg/dL (60-115)
== END 2023-08-11 14:26 | disposition home or self-care (01) ==
PROVIDERS: PCP Internal Medicine; Visit Provider Internal Medicine Endocrinology, Diabetes & Metabolism
DX: E11.9 Type 2 diabetes mellitus without complications (principal); E78.00 Pure hypercholesterolemia, unspecified
CPT/HCPCS: 99214

== ENCOUNTER → 2023-08-11 13:27 | Outpatient (BNVA) | payer OTHER, SELFPAY | PROVIDERS: PCP Internal Medicine; Visit Provider Internal Medicine Endocrinology, Diabetes & Metabolism | DX: E11.9 Type 2 diabetes mellitus without complications (principal); E78.00 Pure hypercholesterolemia, unspecified | CPT/HCPCS: 82947; 99212 ==

== ENCOUNTER 2023-09-08 14:02 | Outpatient (AMB) | payer OTHER, SELFPAY ==
--- NOTE | 2023-09-08 15:16 | A.OFFVIS_ITS ---
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 Accompanied by: Daughter Allergies Penicillins [PENICILLINS] Allergy (Severe, Verified 08/14/23 14:28) SOB, rash, itching codeine [CODEINE] Allergy (Intermediate, Verified 08/14/23 14:28) RASH SOB oxycodone [From PERCOCET] Allergy (Intermediate, Verified 08/14/23 14:28) RASH SOB kiwi [KIWI] Allergy (Mild, Verified 08/14/23 14:28) ITCHY IF TOUCHES pineapple [PINEAPPLE] Allergy (Mild, Verified 08/14/23 14:28) ITCHY IF TOUCHES metformin Adverse Reaction (Intermediate, Verified 08/14/23 14:28) dizziness, blurred vision HPI Comprehensive Diabetes Asmnt Most Recent Diabetes Results: Microalb/Creat Ratio 10.2 ug/mg cr (<30) 07/22/23 Cholesterol 222 mg/dL (<200) H 07/22/23 HDL Cholesterol 66 mg/dL (>40) 07/22/23 Triglycerides 77 mg/dL (<150) 07/22/23 Creatinine 0.81 mg/dL (0.5-1.4) 08/14/23 Blood Urea Nitrogen 23 mg/dL (9-16) H 08/14/23 Sodium 141 mmol/L (135-145) 08/14/23 Potassium 4.3 mmol/L (3.3-5.1) 08/14/23 Chloride 104 mmol/L (96-108) 08/14/23 Carbon Dioxide 29 mmol/L (22-29) 08/14/23 Calcium 9.8 mg/dL (8.4-10.2) 08/14/23 AST 90 U/L (5-31) H 08/14/23 ALT 208 U/L (0-31) H 08/14/23 Total Protein 7.2 g/dL (6.5-8.0) 08/14/23 Albumin 4.0 g/dL (3.5-5.0) 08/14/23 [facility] Medical History (Updated 08/14/23 @ 14:33 by Polina Medina MD) CVA (cerebral vascular accident) Bleeding hemorrhoids Carpal tunnel syndrome, bilateral Internal and external hemorrhoids without complication Diverticulosis Rectal bleed Varicose veins of both lower extremities with pain Hx pulmonary embolism Rectal bleeding Obesity (BMI 30-39.9) Overactive bladder Migraine GERD without esophagitis Allergic rhinitis Fibromyalgia Vitamin B12 deficiency Asthma Bilateral primary osteoarthritis of knee Pure hypercholesterolemia Benign essential hypertension Bilateral lower extremity edema Mammogram abnormal Intertrigo Breast nodule Goiter Vitamin D deficiency HLD (hyperlipidemia) T2DM (type 2 diabetes mellitus) Arthritis Breast pain, right Calcific tendinitis of right hip Right lumbar radiculopathy Right hip pain Low back pain Surgical History Hx of breast surgery History of colonoscopy History of mammogram History of incision and drainage Hx of cataract extraction Hx of cholecystectomy Hx of tubal ligation Hx of eye surgery History of tonsillectomy and adenoidectomy Family History Father Hypertension Myocardial infarction Stroke Mother Hypertension Diabetes Social History Household Members: Spouse, Family and Children Housing: House Are you a primary career resource technician to a significant other at home: No Do you presently have visiting nurse or other home services: No Alcohol intake: never Patient Tobacco Use Status: Never used Tobacco e-Cigarette/Vaping Use: Never Used Second Hand Smoke Exposure: No service: No Current occupational status: disabled Cognitive needs: No Hearing needs: No Vision needs: Yes Assessment & Plan Assessment & Plan (1) 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: Code(s): E11.9 - Type 2 diabetes mellitus without complications Qualifiers: 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 type: type 2 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 usp insulin use: without usp use 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 complication status: with hyperglycemia Qualified Code(s): E11.65 - Type 2 diabetes mellitus with hyperglycemia Plan: Learning objectives: The patient was provided with verbal and written education on the following topics as outlined below. Assess patient education level/literacy/barriers, patient at visit with her 2 daughters, patient using a wheelchair has limited mobility option Patient questions/concerns, patient reports having diabetes for over 20 years. Patient's last A1c on 07/22/2023 9.3%, this was down from 14% in 04/11/2023 Patient has been prescribed Carol 2 sensor, has not picked it up from pharmacy. Patient is on Lantus 30 units daily NovoLog sliding scale, however patient's daughter stated that she does not always follow sliding scale Trulicity 0.75 mg weekly The patient met all learning objectives and was able to verbalize understanding and provide teach back of education topics discussed . The patient was provided with the opportunity to ask questions and all questions were answered. Topics covered in today?s session included: Medications (If applicable) * Name of medication? * Dosing/administration instructions? * Mechanism of action? * Potential side effects? * Potential adverse reaction and appropriate treatment? * Review onset, peak, duration Assess for concerns re: insurance coverage, cost, barriers to compliance Insulin/Injectables (If applicable) * Storage/care of insulin?? * Injection sites? * Site rotation? * Onset, peak, duration * Drawing up insulin? * Injecting insulin/other injectables? * Sharps disposal Continuous blood glucose monitoring (if applicable) Hypoglycemia and Hyperglycemia * Signs and symptoms? * Causes?? * Treatment? * Preventing hypoglycemia? * When to seek medical attention * Blood glucose targets and how you feel when your blood glucose is in and out of your target ranges. * Monitoring and knowing your A1C. * What can make blood glucose go up and down and preventing high and low blood glucose. * Review of blood sugar targets in expected goal range and outside of expected goal range. * Problem solving and preventing hyper/hypoglycemia. * Sick day management of diabetes. * Using blood sugar results in decision making process in managing diabetes. ?Patient was receptive to information provided and participated in the discussion. Asked?appropriate questions and demonstrated good understanding of the topics discussed.? ? Educational Materials: The patient was provided with the following written educational materials: Target Goal handout Smart Goal:? Patient will use sliding scale as prescribed Patient Response to instructions: Comprehension of Instructions: Fair Readiness to make changes:? Contemplation How confident they feel about making changes: Fair Portions of this note were created using voice recognition software, please excuse any words or phrases that may have been misinterpreted. Patient Instructions: Patient will make follow-up appointment on 09/15/2023 for Carol set up Coding Level of Care Code Est Pt Level 1 (58588) Diagnoses Type 2 diabetes mellitus with hyperglycemia, without long-term current use of insulin E11.65 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 type: type 2 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 usp insulin use: without usp use 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 complication status: with hyperglycemia
== END 2023-09-08 15:18 | disposition home or self-care (01) ==
PROVIDERS: PCP Internal Medicine; Visit Provider Registered Nurse Diabetes Educator
DX: E11.65 Type 2 diabetes mellitus with hyperglycemia (principal)

== ENCOUNTER 2023-09-08 14:02 | Outpatient (AMB) | payer OTHER, SELFPAY ==
[2023-09-08 09:26] VITALS: BMI 33.0
--- NOTE | 2023-09-08 14:23 | A.OFFVIS_ITS ---
VS Expanded 09/08/23 09:26 09/17/23 09:27 Height 5 ft 7 in 5 ft 7 in Weight 211 lb 211 lb BMI 33.0 33.0 Intake Visit Reasons: T2DM/CONFIRMED Allergies Penicillins [PENICILLINS] Allergy (Severe, Verified 08/14/23 14:28) SOB, rash, itching codeine [CODEINE] Allergy (Intermediate, Verified 08/14/23 14:28) RASH SOB oxycodone [From PERCOCET] Allergy (Intermediate, Verified 08/14/23 14:28) RASH SOB kiwi [KIWI] Allergy (Mild, Verified 08/14/23 14:28) ITCHY IF TOUCHES pineapple [PINEAPPLE] Allergy (Mild, Verified 08/14/23 14:28) ITCHY IF TOUCHES metformin Adverse Reaction (Intermediate, Verified 08/14/23 14:28) dizziness, blurred vision Nutrition Presentation Details: Pt presents for initial MNT for T2DM Pt presents with daughters to this appt. BS Monitoring Most Recent Diabetes Results: Microalb/Creat Ratio 10.2 ug/mg cr (<30) 07/22/23 Cholesterol 222 mg/dL (<200) H 07/22/23 HDL Cholesterol 66 mg/dL (>40) 07/22/23 Triglycerides 77 mg/dL (<150) 07/22/23 Creatinine 0.81 mg/dL (0.5-1.4) 08/14/23 Blood Urea Nitrogen 23 mg/dL (9-16) H 08/14/23 Sodium 141 mmol/L (135-145) 08/14/23 Potassium 4.3 mmol/L (3.3-5.1) 08/14/23 Chloride 104 mmol/L (96-108) 08/14/23 Carbon Dioxide 29 mmol/L (22-29) 08/14/23 Calcium 9.8 mg/dL (8.4-10.2) 08/14/23 AST 90 U/L (5-31) H 08/14/23 ALT 208 U/L (0-31) H 08/14/23 Total Protein 7.2 g/dL (6.5-8.0) 08/14/23 Albumin 4.0 g/dL (3.5-5.0) 08/14/23 DGN-Pobbapf-Tg.Jeor Equation Height: 5 ft 7 in Weight: 211 lb Resting Metabolic Rate: 1529.11 Calculated Activity Level: Sedentary Calories Needed to Maintain Weight: 1834.93 Diagnosis Nutrition problem #1: food nutri know defi As related to (etiology) #1: diagnosis As evidenced by (sign/symptom) #1: knowledge deficit of diet Monitoring/Goals Nutrition problem monitoring: HgbA1c and level of knowledge/skill Nutrition goal/outcome: HgbA1c <7% in 3 months, list 3 CHO foods and wt gain 5lbs in 2 months Outcome progress: verbalized understanding Learning/Education Readiness to learn: fair [facility] Medical History (Updated 08/14/23 @ 14:33 by Polina Medina MD) CVA (cerebral vascular accident) Bleeding hemorrhoids Carpal tunnel syndrome, bilateral Internal and external hemorrhoids without complication Diverticulosis Rectal bleed Varicose veins of both lower extremities with pain Hx pulmonary embolism Rectal bleeding Obesity (BMI 30-39.9) Overactive bladder Migraine GERD without esophagitis Allergic rhinitis Fibromyalgia Vitamin B12 deficiency Asthma Bilateral primary osteoarthritis of knee Pure hypercholesterolemia Benign essential hypertension Bilateral lower extremity edema Mammogram abnormal Intertrigo Breast nodule Goiter Vitamin D deficiency HLD (hyperlipidemia) T2DM (type 2 diabetes mellitus) Arthritis Breast pain, right Calcific tendinitis of right hip Right lumbar radiculopathy Right hip pain Low back pain Surgical History Hx of breast surgery History of colonoscopy History of mammogram History of incision and drainage Hx of cataract extraction Hx of cholecystectomy Hx of tubal ligation Hx of eye surgery History of tonsillectomy and adenoidectomy Family History Father Hypertension Myocardial infarction Stroke Mother Hypertension Diabetes Social History Household Members: Spouse, Family and Children Housing: House Are you a primary urgent care technician to a significant other at home: No Do you presently have visiting nurse or other home services: No Alcohol intake: never Patient Tobacco Use Status: Never used Tobacco e-Cigarette/Vaping Use: Never Used Second Hand Smoke Exposure: No service: No Current occupational status: disabled Cognitive needs: No Hearing needs: No Vision needs: Yes Assessment & Plan Assessment & Plan (1) 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: Code(s): E11.9 - Type 2 diabetes mellitus without complications Category: Medical Qualifiers: 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 type: type 2 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 remote computer terminal operator insulin use: without remote computer terminal operator use 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 complication status: with hyperglycemia Qualified Code(s): E11.65 - Type 2 diabetes mellitus with hyperglycemia Plan: Wt: 96 Kg ( 08/2023 ) Est kcal needs as per MSJ: 1800 (40% carb, 30% protein/fat) Est fluid needs as per 25ml/d: 2400 Est prot per day as per 1 g/kg bw: 96 Recommend fiber intake : 8-10 g per day and gradually increase to 25-28 g per day for women and 35-38 g for men or as tolerated Recommend sodium intake per day : less than 2000 mg Educated patient on: ( R = reviewed V = verbalizes understanding N/R = needs review N/A = not applicable * Food sources of carbohydrate, adequate serving sizes and its role in various health conditions: R * Differences between complex carbohydrates a simple carbohydrates, role of fiber in diet: R V N/R * Lean protein sources of foods: R V NR * Differences between types of fats and role in diet (mono on saturated fat fatty acids, saturated fatty acids, trans fats): R V N/R * Food sources of sodium in salt and healthy modifications for heart health in kidney health: R V R/V * Vitamins and minerals: R V N/R * Healthy plate method concept: R * Physical activity: Benefits a precaution: R V N/R * Hypoglycemia protocol (rule of 15): R V N/R * Dietary prevention of Hyperglycemia: R Patient Instructions: Follow healthy plate method at dinner Reduce carb as snack to 20 g and combine with a lean protein food Choose low sugar beverages or milk with your meals and water with your snacks Coding Level of Care Code Nutr Indiv Intake (28517) Diagnoses Type 2 diabetes mellitus with hyperglycemia, without long-term current use of insulin E11.65 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 type: type 2 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 detention insulin use: without remote computer terminal operator use 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 complication status: with hyperglycemia Time Spent (min) 30
[2023-09-17 09:27] VITALS: BMI 33.0
== END 2023-09-08 15:21 | disposition home or self-care (01) ==
PROVIDERS: PCP Internal Medicine; Visit Provider Dietitian, Registered
DX: E11.65 Type 2 diabetes mellitus with hyperglycemia (principal)

== ENCOUNTER → 2023-09-08 14:02 | Outpatient (BNVA) | payer OTHER, SELFPAY | PROVIDERS: PCP Internal Medicine; Visit Provider Registered Nurse Diabetes Educator | DX: E11.65 Type 2 diabetes mellitus with hyperglycemia (principal); Z71.3 Dietary counseling and surveillance | CPT/HCPCS: 97802; 99211 ==

== ENCOUNTER 2023-09-15 15:31 | Outpatient (AMB) | payer OTHER, SELFPAY ==
--- NOTE | 2023-09-15 15:57 | A.OFFVIS_ITS ---
Intake Intake Visit Reasons: 3:30 for Carol setup Allergies Penicillins [PENICILLINS] Allergy (Severe, Verified 08/14/23 14:28) SOB, rash, itching codeine [CODEINE] Allergy (Intermediate, Verified 08/14/23 14:28) RASH SOB oxycodone [From PERCOCET] Allergy (Intermediate, Verified 08/14/23 14:28) RASH SOB kiwi [KIWI] Allergy (Mild, Verified 08/14/23 14:28) ITCHY IF TOUCHES pineapple [PINEAPPLE] Allergy (Mild, Verified 08/14/23 14:28) ITCHY IF TOUCHES metformin Adverse Reaction (Intermediate, Verified 08/14/23 14:28) dizziness, blurred vision HPI Comprehensive Diabetes Asmnt Most Recent Diabetes Results: Microalb/Creat Ratio 10.2 ug/mg cr (<30) 07/22/23 Cholesterol 222 mg/dL (<200) H 07/22/23 HDL Cholesterol 66 mg/dL (>40) 07/22/23 Triglycerides 77 mg/dL (<150) 07/22/23 Creatinine 0.81 mg/dL (0.5-1.4) 08/14/23 Blood Urea Nitrogen 23 mg/dL (9-16) H 08/14/23 Sodium 141 mmol/L (135-145) 08/14/23 Potassium 4.3 mmol/L (3.3-5.1) 08/14/23 Chloride 104 mmol/L (96-108) 08/14/23 Carbon Dioxide 29 mmol/L (22-29) 08/14/23 Calcium 9.8 mg/dL (8.4-10.2) 08/14/23 AST 90 U/L (5-31) H 08/14/23 ALT 208 U/L (0-31) H 08/14/23 Total Protein 7.2 g/dL (6.5-8.0) 08/14/23 Albumin 4.0 g/dL (3.5-5.0) 08/14/23 [facility] Medical History (Updated 08/14/23 @ 14:33 by Polina Medina MD) CVA (cerebral vascular accident) Bleeding hemorrhoids Carpal tunnel syndrome, bilateral Internal and external hemorrhoids without complication Diverticulosis Rectal bleed Varicose veins of both lower extremities with pain Hx pulmonary embolism Rectal bleeding Obesity (BMI 30-39.9) Overactive bladder Migraine GERD without esophagitis Allergic rhinitis Fibromyalgia Vitamin B12 deficiency Asthma Bilateral primary osteoarthritis of knee Pure hypercholesterolemia Benign essential hypertension Bilateral lower extremity edema Mammogram abnormal Intertrigo Breast nodule Goiter Vitamin D deficiency HLD (hyperlipidemia) T2DM (type 2 diabetes mellitus) Arthritis Breast pain, right Calcific tendinitis of right hip Right lumbar radiculopathy Right hip pain Low back pain Surgical History Hx of breast surgery History of colonoscopy History of mammogram History of incision and drainage Hx of cataract extraction Hx of cholecystectomy Hx of tubal ligation Hx of eye surgery History of tonsillectomy and adenoidectomy Family History Father Hypertension Myocardial infarction Stroke Mother Hypertension Diabetes Social History Household Members: Spouse, Family and Children Housing: House Are you a primary field care coordinator to a significant other at home: No Do you presently have visiting nurse or other home services: No Alcohol intake: never Patient Tobacco Use Status: Never used Tobacco e-Cigarette/Vaping Use: Never Used Second Hand Smoke Exposure: No service: No Current occupational status: disabled Cognitive needs: No Hearing needs: No Vision needs: Yes Assessment & Plan Assessment & Plan (1) 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: Code(s): E11.9 - Type 2 diabetes mellitus without complications Qualifiers: 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 type: type 2 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 fpc insulin use: without long chain quiller tender use 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 complication status: with hyperglycemia Qualified Code(s): E11.65 - Type 2 diabetes mellitus with hyperglycemia Plan: Patient at visit to set up an insert Carol 2 Instructed patient sensors water proof you can shower, or swim do not submerge sensor in water for over 30 minutes Is sensor falls off cannot put back in you need to replace sensor, customer service number given to patient for sensor replacement Sensor placed on the back of R arm Patient left visit with sensor in warmup Reviewed how to interpret trend arrows Reminded patient that to check finger sticks if symptoms do not match sensor reading. Discussed lag time between finger stick and sensor data.? Instructed patient she should always keep blood glucometer for backup testing if needed Reviewed delay of CGM from fingersticks Reminded pt that if symptoms do not match sensor still needs to check fingersticks. Portions of this note were created using voice recognition software, please excuse any words or phrases that may have been misinterpreted. Patient Instructions: Patient instruction: CGM provides information on blood glucose control throughout the day, including hyperglycemia and hypoglycemia. ? Continue to monitor blood glucose as instructed. Follow nutrition guidelines provided. Report any discomfort promptly to health care provider. ?Stay well-hydrated. You can bathe ,shower, swim and exercise while wearing the glucose sensor. Do not submerge glucose sensor in water for more than 30 minutes. Coding Level of Care Code Est Pt Level 1 (71433) Diagnoses Type 2 diabetes mellitus with hyperglycemia, without long-term current use of insulin E11.65 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 type: type 2 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 fpc insulin use: without fpc use 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 complication status: with hyperglycemia
== END 2023-09-15 16:06 | disposition home or self-care (01) ==
PROVIDERS: PCP Internal Medicine; Visit Provider Registered Nurse Diabetes Educator
DX: E11.65 Type 2 diabetes mellitus with hyperglycemia (principal)

== ENCOUNTER → 2023-09-15 15:31 | Outpatient (BNVA) | payer OTHER, SELFPAY | PROVIDERS: PCP Internal Medicine; Visit Provider Registered Nurse Diabetes Educator | DX: E11.65 Type 2 diabetes mellitus with hyperglycemia (principal) | CPT/HCPCS: 99211 ==

== ENCOUNTER 2023-09-29 09:02 | Outpatient (AMB) | payer OTHER, SELFPAY ==
--- NOTE | 2023-09-29 09:38 | MHC.AMDMED ---
Intake Intake Visit Reasons: 60 min Scrap Preparation Supervisor Required: No Accompanied by: Daughter Allergies Penicillins [PENICILLINS] Allergy (Severe, Verified 08/14/23 14:28) SOB, rash, itching codeine [CODEINE] Allergy (Intermediate, Verified 08/14/23 14:28) RASH SOB oxycodone [From PERCOCET] Allergy (Intermediate, Verified 08/14/23 14:28) RASH SOB kiwi [KIWI] Allergy (Mild, Verified 08/14/23 14:28) ITCHY IF TOUCHES pineapple [PINEAPPLE] Allergy (Mild, Verified 08/14/23 14:28) ITCHY IF TOUCHES metformin Adverse Reaction (Intermediate, Verified 08/14/23 14:28) dizziness, blurred vision HPI Comprehensive Diabetes Asmnt Most Recent Diabetes Results: Microalb/Creat Ratio 10.2 ug/mg cr (<30) 07/22/23 Cholesterol 222 mg/dL (<200) H 07/22/23 HDL Cholesterol 66 mg/dL (>40) 07/22/23 Triglycerides 77 mg/dL (<150) 07/22/23 Creatinine 0.81 mg/dL (0.5-1.4) 08/14/23 Blood Urea Nitrogen 23 mg/dL (9-16) H 08/14/23 Sodium 141 mmol/L (135-145) 08/14/23 Potassium 4.3 mmol/L (3.3-5.1) 08/14/23 Chloride 104 mmol/L (96-108) 08/14/23 Carbon Dioxide 29 mmol/L (22-29) 08/14/23 Calcium 9.8 mg/dL (8.4-10.2) 08/14/23 AST 90 U/L (5-31) H 08/14/23 ALT 208 U/L (0-31) H 08/14/23 Total Protein 7.2 g/dL (6.5-8.0) 08/14/23 Albumin 4.0 g/dL (3.5-5.0) 08/14/23 [facility] Medical History (Updated 08/14/23 @ 14:33 by Polina Medina MD) CVA (cerebral vascular accident) Bleeding hemorrhoids Carpal tunnel syndrome, bilateral Internal and external hemorrhoids without complication Diverticulosis Rectal bleed Varicose veins of both lower extremities with pain Hx pulmonary embolism Rectal bleeding Obesity (BMI 30-39.9) Overactive bladder Migraine GERD without esophagitis Allergic rhinitis Fibromyalgia Vitamin B12 deficiency Asthma Bilateral primary osteoarthritis of knee Pure hypercholesterolemia Benign essential hypertension Bilateral lower extremity edema Mammogram abnormal Intertrigo Breast nodule Goiter Vitamin D deficiency HLD (hyperlipidemia) T2DM (type 2 diabetes mellitus) Arthritis Breast pain, right Calcific tendinitis of right hip Right lumbar radiculopathy Right hip pain Low back pain Surgical History Hx of breast surgery History of colonoscopy History of mammogram History of incision and drainage Hx of cataract extraction Hx of cholecystectomy Hx of tubal ligation Hx of eye surgery History of tonsillectomy and adenoidectomy Family History Father Hypertension Myocardial infarction Stroke Mother Hypertension Diabetes Social History Household Members: Spouse, Family and Children Housing: House Are you a primary long term care administrator to a significant other at home: No Do you presently have visiting nurse or other home services: No Alcohol intake: never Patient Tobacco Use Status: Never used Tobacco e-Cigarette/Vaping Use: Never Used Second Hand Smoke Exposure: No service: No Current occupational status: disabled Cognitive needs: No Hearing needs: No Vision needs: Yes Assessment & Plan Assessment & Plan (1) 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: Code(s): E11.9 - Type 2 diabetes mellitus without complications Qualifiers: 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 type: type 2 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 bed bug exterminator insulin use: without bed bug exterminator use 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 complication status: with hyperglycemia Qualified Code(s): E11.65 - Type 2 diabetes mellitus with hyperglycemia Plan: Personal Continuous Glucose Monitor: Patients CGM information reviewed Reviewed patient's sensor data: Hypoglycemia: ? 1% Hyperglycemia:?15% Time in Range:? 84% Average glucose for the last 2 weeks 144? mg/dL Pt had 2 episodes of hypo, reviewed Rule of 15s, handout given. If hypos continue contact Diabetes Education Nurse Pt will be due for next A1c in 10/2023 f/u with DM nurse in 1 month Reviewed how to interpret trend arrows Reminded patient that to check finger sticks if symptoms do not match sensor reading. Discussed lag time between finger stick and sensor data.? Patient able to insert sensor independently at home without issue.? Portions of this note were created using voice recognition software, please excuse any words or phrases that may have been misinterpreted. Coding Level of Care Code Est Pt Level 1 (44750) Diagnoses Type 2 diabetes mellitus with hyperglycemia, without long-term current use of insulin E11.65 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 type: type 2 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 bed bug exterminator insulin use: without detention use 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 complication status: with hyperglycemia
== END 2023-09-29 09:42 | disposition home or self-care (01) ==
PROVIDERS: PCP Internal Medicine; Visit Provider Registered Nurse Diabetes Educator
DX: E11.65 Type 2 diabetes mellitus with hyperglycemia (principal)

== ENCOUNTER → 2023-09-29 09:02 | Outpatient (BNVA) | payer OTHER, SELFPAY | PROVIDERS: PCP Internal Medicine; Visit Provider Registered Nurse Diabetes Educator | DX: E11.65 Type 2 diabetes mellitus with hyperglycemia (principal) | CPT/HCPCS: 99211 ==

== ENCOUNTER 2023-10-06 15:00 | Outpatient (RCR) | payer OTHER, SELFPAY ==
--- NOTE | 2023-09-16 16:39 | MHC.PT.EP ---
[facility] [place] Office [place] [facility] [place] Office [address] Yohannes Camacho [address] [phone] F: [phone] F: [phone] F: [phone] F: [phone] Physical Therapy Plan of Care Date of Evaluation: 09/16/23 Date of Surgery: N/A Diagnosis: CVA affecting right side, strain of shoulder (RL) Assessment: pt is a 67 y/o female presenting to physical therapy w/ referring diagnosis of CVA affecting right side, strain of shoulder. pt has residual impairments from a CVA affecting her R side causing athetoid movements that is not well managed via medication. She does present w/ B pain and L side is more painful at this time. Overall, her poor habitual posturing is most likely causing her symptoms. Will continue to monitor and refer as appropriate. Impairments include pain, decreased range of motion, decreased strength, impaired functional mobility, impaired postural awareness, and altered ambulation mechanics. pt is a fair candidate for skilled PT due to age, potential remediation of impairments, typical disease/condition progression and prognosis, comorbidities, and motivation. pt would benefit from skilled PT intervention to provide a tailored strengthening and stretching exercise program, functional training, gait training, postural re-training, neuromuscular re-education, modalities as needed for pain, equipment safety demonstration. Frequency and Duration: The patient will be seen 2x/wk for 4 wks Short Term Goals: pt will be I w/ HEP to promote self-management of condition. pt will improve L shoulder flexion by at least 10 degrees to promote ease in overhead reaching. Content Assistant Goals: pt will demo neutral cervical and shoulder posturing w/ standing and ambulating using rollator walker to reduce stress on UEs and reduce fall risk. pt will report <5/10 L shoulder pain w/ picking up 5# object to promote return to some meal prep. Treatment Plan: Modalities to reduce pain, spasms and effusion. Manual therapy to restore motion and function. Therapeutic exercise to improve strength and flexibility. Neuromuscular re-education for posture and balance. Therapeutic activities to return to functional activities of daily living. Electronically signed by: Regine Jerry PT, DPT Please sign and return to therapist. Thank you for your referral.
--- NOTE | 2023-11-11 14:33 | MHC.PT.DC ---
[facility] [place] [facility] [place] [facility] [place] [facility] [address] Yohannes Camacho [address] [phone] F: [phone] F: [phone] F: [phone] F: [phone] Physical Therapy Discharge Report Diagnosis: CVA affecting right side, strain of shoulder (RL) Date of Surgery: N/A Date of Evaluation: 09/16/23 Date of Discharge: 11/11/23 Treatments to Date: 5 Cancellations to Date: 2 No Shows to Date: 1 Discharge Status: Improved Function Visit Non-compliance Discharge Summary: Patient has not been seen in 35 days. Per last treatment note on 10/06/23: pt reporting less intense pain since starting PT. She has better postural awareness but does require mod verbal cueing to avoid [place] compensation. When she self-approximates her hand in an attempt to reduce involuntary movements she tends to horizontally adduct and internally rotate. She would continue to benefit from postural awareness, periscap strengthening, and soft tissue work to continue to reduce pain. I do not feel PT will address her functional limitations. She sees neuro on 11/01. Encouraged her to advocate for herself to see what injections/medications are available. She is discharged from this physical therapy plan of care due to non-compliance. Electronically signed by: Regine Jerry PT, DPT Please sign and return to therapist. Thank you for your referral.
== END 2023-11-11 14:33 | disposition home or self-care (01) ==
LOC: HO.PT 15:00
PROVIDERS: PCP Internal Medicine; Visit Provider Internal Medicine
DX: S46.912D Strain of unspecified muscle, fascia and tendon at shoulder and upper arm level, left arm, subsequent encounter (principal); I63.9 Cerebral infarction, unspecified; I69.351 Hemiplegia and hemiparesis following cerebral infarction affecting right dominant side
CPT/HCPCS: 97110; 97112; 97140; 97162

== ENCOUNTER 2023-10-13 13:05 | Outpatient (AMB) | payer OTHER, SELFPAY ==
[2023-10-13 11:40] VITALS: BMI 33.0
--- NOTE | 2023-10-13 13:16 | A.OFFVIS_ITS ---
VS Expanded 10/13/23 11:40 Height 5 ft 7 in Weight 211 lb BMI 33.0 Intake Visit Reasons: T2DM/LVM Allergies Penicillins [PENICILLINS] Allergy (Severe, Verified 08/14/23 14:28) SOB, rash, itching codeine [CODEINE] Allergy (Intermediate, Verified 08/14/23 14:28) RASH SOB oxycodone [From PERCOCET] Allergy (Intermediate, Verified 08/14/23 14:28) RASH SOB kiwi [KIWI] Allergy (Mild, Verified 08/14/23 14:28) ITCHY IF TOUCHES pineapple [PINEAPPLE] Allergy (Mild, Verified 08/14/23 14:28) ITCHY IF TOUCHES metformin Adverse Reaction (Intermediate, Verified 08/14/23 14:28) dizziness, blurred vision Nutrition Presentation Details: Pt presents for MNT f/u for T2DM Pt reports working on diet modification. BS Monitoring Most Recent Diabetes Results: Cholesterol 277 mg/dL 02/25/21 HDL Cholesterol 66 mg/dL 02/25/21 Triglycerides 173 mg/dL 02/25/21 Creatinine 0.81 mg/dL (0.5-1.4) 08/14/23 Blood Urea Nitrogen 23 mg/dL (9-16) H 08/14/23 Sodium 141 mmol/L (135-145) 08/14/23 Potassium 4.3 mmol/L (3.3-5.1) 08/14/23 Chloride 104 mmol/L (96-108) 08/14/23 Carbon Dioxide 29 mmol/L (22-29) 08/14/23 Calcium 9.8 mg/dL (8.4-10.2) 08/14/23 AST 90 U/L (5-31) H 08/14/23 ALT 208 U/L (0-31) H 08/14/23 Total Protein 7.2 g/dL (6.5-8.0) 08/14/23 Albumin 4.0 g/dL (3.5-5.0) 08/14/23 [facility] Medical History (Updated 08/14/23 @ 14:33 by Polina Medina MD) CVA (cerebral vascular accident) Bleeding hemorrhoids Carpal tunnel syndrome, bilateral Internal and external hemorrhoids without complication Diverticulosis Rectal bleed Varicose veins of both lower extremities with pain Hx pulmonary embolism Rectal bleeding Obesity (BMI 30-39.9) Overactive bladder Migraine GERD without esophagitis Allergic rhinitis Fibromyalgia Vitamin B12 deficiency Asthma Bilateral primary osteoarthritis of knee Pure hypercholesterolemia Benign essential hypertension Bilateral lower extremity edema Mammogram abnormal Intertrigo Breast nodule Goiter Vitamin D deficiency HLD (hyperlipidemia) T2DM (type 2 diabetes mellitus) Arthritis Breast pain, right Calcific tendinitis of right hip Right lumbar radiculopathy Right hip pain Low back pain Surgical History Hx of breast surgery History of colonoscopy History of mammogram History of incision and drainage Hx of cataract extraction Hx of cholecystectomy Hx of tubal ligation Hx of eye surgery History of tonsillectomy and adenoidectomy Family History Father Hypertension Myocardial infarction Stroke Mother Hypertension Diabetes Social History Household Members: Spouse, Family and Children Housing: House Are you a primary behavioral health care manager to a significant other at home: No Do you presently have visiting nurse or other home services: No Alcohol intake: never Patient Tobacco Use Status: Never used Tobacco e-Cigarette/Vaping Use: Never Used Second Hand Smoke Exposure: No service: No Current occupational status: disabled Cognitive needs: No Hearing needs: No Vision needs: Yes Assessment & Plan Assessment & Plan (1) 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: Code(s): E11.9 - Type 2 diabetes mellitus without complications Category: Medical Qualifiers: 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 type: type 2 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 snf insulin use: without snf use 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 complication status: with hyperglycemia Qualified Code(s): E11.65 - Type 2 diabetes mellitus with hyperglycemia Plan: Wt: 96 Kg ( 08/2023 ), 09/2023 Est kcal needs as per MSJ: 1800 (40% carb, 30% protein/fat) Est fluid needs as per 25ml/d: 2400 Est prot per day as per 1 g/kg bw: 96 Recommend fiber intake : 8-10 g per day and gradually increase to 25-28 g per day for women and 35-38 g for men or as tolerated Recommend sodium intake per day : less than 2000 mg Educated patient on: ( R = reviewed V = verbalizes understanding N/R = needs review N/A = not applicable * Food sources of carbohydrate, adequate serving sizes and its role in various health conditions: R * Differences between complex carbohydrates a simple carbohydrates, role of fiber in diet: R * Lean protein sources of foods: R V NR * Differences between types of fats and role in diet (mono on saturated fat fatty acids, saturated fatty acids, trans fats): R V N/R * Food sources of sodium in salt and healthy modifications for heart health in kidney health: R V R/V * Vitamins and minerals: R V N/R * Healthy plate method concept: R * Physical activity: Benefits a precaution: R V N/R * Hypoglycemia protocol (rule of 15): R , V * Dietary prevention of Hyperglycemia: R Patient Instructions: Choose foods with fiber (vegetables, seeds, nuts, fruits, whole grain foods, when reading food labels choose food with 3 g fiber or more per serving ) Treat low blood sugar by following rule of 15 , continue medication recommendations as per your doctor, /certified diabetes educator call for nutrition questions Coding Level of Care Code Nutr Indiv Subseq (01225) Diagnoses Type 2 diabetes mellitus with hyperglycemia, without long-term current use of insulin E11.65 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 type: type 2 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 snf insulin use: without director long term care use 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 complication status: with hyperglycemia Time Spent (min) 30
== END 2023-10-13 13:45 | disposition home or self-care (01) ==
PROVIDERS: PCP Internal Medicine; Visit Provider Dietitian, Registered
DX: E11.65 Type 2 diabetes mellitus with hyperglycemia (principal)

== ENCOUNTER → 2023-10-13 13:05 | Outpatient (BNVA) | payer OTHER, SELFPAY | PROVIDERS: PCP Internal Medicine; Visit Provider Dietitian, Registered | DX: E11.65 Type 2 diabetes mellitus with hyperglycemia (principal); Z71.3 Dietary counseling and surveillance | CPT/HCPCS: 97803 ==

== ENCOUNTER 2023-10-28 12:50 | Outpatient (AMB) | payer OTHER, MEDICAID, SELFPAY ==
[2023-10-28 12:59] VITALS: BP 162/92; PULSE 87; O2SAT 96; BMI 29.8
--- NOTE | 2023-10-28 12:59 | A.OFFPC_ITS ---
Vital Signs 10/28/23 12:59 Height 5 ft 7 in Weight 190 lb BMI 29.8 BP 162/92 H Blood Pressure Location Lt brachial Position Sitting Pulse 87 Pulse Source Pulse Oximeter Pulse Oximetry (%) 96 Oxygen Delivery Method Room Air Intake Visit Reasons: CVA, DM, hyperlipidemia, anemia Allergies Penicillins [PENICILLINS] Allergy (Severe, Verified 10/28/23 14:15) SOB, rash, itching codeine [CODEINE] Allergy (Intermediate, Verified 10/28/23 14:15) RASH SOB oxycodone [From PERCOCET] Allergy (Intermediate, Verified 10/28/23 14:15) RASH SOB kiwi [KIWI] Allergy (Mild, Verified 10/28/23 14:15) ITCHY IF TOUCHES pineapple [PINEAPPLE] Allergy (Mild, Verified 10/28/23 14:15) ITCHY IF TOUCHES metformin Adverse Reaction (Intermediate, Verified 10/28/23 14:15) dizziness, blurred vision Medication List - Last Reconciled 10/28/23 by Erick Villanueva MD albuterol sulfate 2.5 mg (3 mL) continuous nebulization Q4-6H PRN ascorbate calcium (vitamin C) 500 mg PO DAILY 90 days aspirin (Adult Aspirin Regimen) 81 mg PO DAILY 90 days atorvastatin 80 mg PO DAILY blood sugar diagnostic (OneTouch Ultra Test strips) 5 times per day blood sugar diagnostic (FreeStyle Lite Strips) As directed to test blood sugar three times a day blood-glucose meter (FreeStyle [place] Lite kit) As directed blood-glucose meter (OneTouch Ultra2 Meter kit) As directed 3x/day carvedilol (Coreg) 25 mg PO BID 90 days cholecalciferol (vitamin D3) 5,000 units PO DAILY 90 days clopidogrel 75 mg PO DAILY [compression stockings Use daily as directed as needed, strength - medium; length - knee high ] cyanocobalamin (vitamin B-12) 1,000 mcg PO DAILY 90 days dulaglutide (Trulicity) 0.75 mg (0.5 mL) subcut QWEEK ferrous sulfate 325 mg PO BID flash glucose scanning reader (iSoftStoneStyle Carol 2 [place]) As directed flash glucose sensor (FreeStyle Carol 2 Sensor kit) As directed change every 14 days folic acid 1 mg PO DAILY 90 days gabapentin 400 mg PO TID 30 days glucagon (Gvoke HypoPen 1-Pack) 1 mg (0.2 mL) subcut ONCE insulin glargine (Lantus Solostar U-100 Insulin) 30 units (0.3 mL) subcut QPM 30 days lancets 5 times per day lancets (FreeStyle Lancets) As directed test blood sugar three times a day lansoprazole 15 mg PO DAILY [LIGHTWEIGHT STANDARD WHEELCHAIR As directed] [LIGHTWEIGHT WHEELCHAIR As directed] losartan 100 mg PO DAILY 90 days Novolog FlexPen U-100 Insulin (insulin aspart U-100) See Protocol Take 2 to 10 units, dosed PER SLIDING SCALE, 4 times a day - with meals and at bedtime, subcutaneously; NS pen needle, diabetic (BD Nella 2nd Gen Pen Needle) test 5 times per day pen needle, diabetic (BD Ultra-Fine Micro Pen Needle) 5 times a day as directed - Lantus QD and Humalog QID [ROLLATOR As directed] tramadol 50 mg PO TID PRN 30 days [Transport wheel chair As directed] Ventolin HFA 90 mcg/actuation (albuterol sulfate) 2 puffs inhalation Q4-6H PRN NS [WALKER LEG RUBBER TIPS As directed] Tobacco use date assessed: 07/28/23 Fall risk assessment: 2 + Falls in past year Last assessed Fall Risk: 10/28/23 Dental Screening Dental Screen Date: 04/28/23 HPI CVA, DM, hyperlipidemia, anemia HPI Details Patient comes in today for her follow up visit States that she has been experiencing increased pain over the back of her neck for a while now and she does not feel that it has improved much at all over the past few months States that her last 2 sessions of physical therapy was cancelled and she has not yet been able to call them up to reschedule but will try to do so in the next few days She also still has the involuntary repetitive movements of her right arm but states that she has no trouble sleeping at night and her gait also appears to have improved over the past few months as she is seen to be moving around much faster although she still uses her walker all the time States that the leg tips of her walker are both worn out and she may need a new replacement - states that the metal leg of the walker is now often causing scratches on her wooden floor She does have a follow up appointment with Dr. Boo (neurology) coming up in a couple of weeks She denies any headaches or dizziness Denies any chest pains, no SOB No nausea/vomiting, no abdominal pain No change in bowel habits noted She was not able to get her follow up labs done prior to her appointment today - have advised her to try to get these done L[facility] as I am not only tracking her cholesterol numbers but am also following up on her significantly elevated LFTs from a few months ago [facility] Medical History CVA (cerebral vascular accident) Bleeding hemorrhoids Carpal tunnel syndrome, bilateral Internal and external hemorrhoids without complication Diverticulosis Rectal bleed Varicose veins of both lower extremities with pain Hx pulmonary embolism Rectal bleeding Obesity (BMI 30-39.9) Overactive bladder Migraine GERD without esophagitis Allergic rhinitis Fibromyalgia Vitamin B12 deficiency Asthma Bilateral primary osteoarthritis of knee Pure hypercholesterolemia Benign essential hypertension Bilateral lower extremity edema Mammogram abnormal Intertrigo Breast nodule Goiter Vitamin D deficiency HLD (hyperlipidemia) T2DM (type 2 diabetes mellitus) Arthritis Breast pain, right Calcific tendinitis of right hip Right lumbar radiculopathy Right hip pain Low back pain Surgical History Hx of breast surgery History of colonoscopy History of mammogram History of incision and drainage Hx of cataract extraction Hx of cholecystectomy Hx of tubal ligation Hx of eye surgery History of tonsillectomy and adenoidectomy Family History Father Hypertension Myocardial infarction Stroke Mother Hypertension Diabetes Social History Household Members: Spouse, Family and Children Housing: House Are you a primary care assistant to a significant other at home: No Do you presently have visiting nurse or other home services: No Alcohol intake: never Patient Tobacco Use Status: Never used Tobacco e-Cigarette/Vaping Use: Never Used Second Hand Smoke Exposure: No service: No Current occupational status: disabled Cognitive needs: No Hearing needs: No Vision needs: Yes Questionnaire PHQ-9 Over the last 2 weeks, how often have you been bothered by any of the following problems? 1. Little interest or pleasure in doing things: not at all 2. Feeling down, depressed, or hopeless: not at all 3. Trouble falling or staying asleep, or sleeping too much: not at all 4. Feeling tired or having little energy: not at all 5. Poor appetite or overeating: not at all 6. Feeling bad about yourself - or that you are a failure or have let yourself or your family down: not at all 7. Trouble concentrating on things, such as reading the newspaper or watching television: not at all 8. Moving or speaking so slowly that other people could have noticed. Or the opposite - being so fidgety or restless that you have been moving around a lot more than usual: not at all 9. Thoughts that you would be better off or of hurting yourself in some way: not at all Total score: 0 Depression Screening Interpretation: Negative Depression Screening Done: Yes 50480 - PHQ-9 Billing: Yes Source: Developed by Drs. Taj Willson, Elaine Tsai, Dyllan Singh and colleagues, with an educational cory from [employer]. Thrive Questionnaire Date Thrive assessed: 05/27/23 AUDIT C Alcohol Use Questionnaire (AUDIT-C) 1. How often do you have a drink containing alcohol?: Never 3. How often do you have six or more drinks on one occasion?: Never Total Score: 0 Score Reviewed/Action Taken: Yes LELE-7 AMB Questionnaire LELE-7 Date LELE - 7 assessed: 04/28/23 Source: Developed by Drs. Taj Willson, Elaine Tsai, Dyllan Singh and colleagues, with an educational cory from [employer]. Review of Systems Const Denies chills, Reports fatigue, Denies fever(s) and Denies headache(s) ENT Denies dysphagia, Denies dizziness, Denies otalgia, Denies headache(s), Reports neck pain (increasing), Denies odynophagia and Denies sore throat Card Denies chest pain, Denies rapid heart rate, Denies palpitations and Reports dyspnea on exertion (mild) Resp Denies cough, Reports dyspnea on exertion (mild) and Denies wheezing GI Denies abdominal pain, Denies dysphagia, Denies nausea, Denies odynophagia and Denies vomiting Denies nocturia, Denies dysuria and Denies urinary urgency Musc Details: (+) pain over her entire right side, from the neck and shoulder down to the leg Denies back pain, Reports arthralgias (involving both shoulders, right elbow, arm and leg; R knee), Denies joint swelling, Reports neck pain (increasing) and Reports numbness (on and off, over the fingers of the right hand) Skin/Breast Denies rash Neuro Details: (+) recurrent, involuntary movements involving primarily the right side of the face and right arm/hand Denies dizziness, Denies headache(s) and Reports numbness (on and off, over the fingers of the right hand) Psych Reports anxiety (better controlled) and Reports depression (better controlled) Endo Reports fatigue and Denies palpitations Aller/Immun Denies wheezing Physical exam (Primary Care) Vital Signs: Last Vital Signs Pulse 87 10/28/23 12:59 BP 162/92 H 10/28/23 12:59 Pulse Ox 96 10/28/23 12:59 Oxygen Delivery Method Room Air 10/28/23 12:59 BMI result Body Mass Index 29.8 Tobacco/Smoking Status: Tobacco use Status Tobacco use date assessed 07/28/23 10/28/23 13:01 Patient Tobacco Use Status Never used Tobacco 10/28/23 13:01 e-Cigarette/Vaping Use Never Used 10/28/23 13:01 PHQ-9: PHQ-9 Score PHQ-9: Total score 0 10/28/23 13:13 Depression Screening Interpretation: Negative Thrive Assessment: Date of Thrive Assessment Date Thrive assessed 05/27/23 10/28/23 13:01 Const General: no acute distress and alert HENMT Ears: TM's normal bilaterally and EAC's normal Throat: Yes posterior oropharynx normal and Yes tonsils normal (no TP congestion noted) Neck Neck: Yes no lymphadenopathy, Yes supple and Yes tender (over the cervical spine on exam) Thyroid: Thyroid normal Resp Auscultation: clear to auscultation bilaterally, no rales and no wheezes Cardio Rate: regular rate Rhythm: regular rhythm Heart sounds: no murmurs GI Palpation (GI): Soft to palpation and nontender Auscultation: normal bowel sounds Back/Spine/Pelvis Cervical Spine: cervical muscular tenderness (bilateral) and Cervical spine tenderness Thoracic/Lumbar Spine: paraspinal muscle tenderness bilaterally in the upper thoracic and lumbar spinal tenderness Skin Rashes: no rashes Neuro Other: right hemiparesis Cognition (Neuro): normal cognition Gait exam (Neuro): Antalgic gait present and Assistive device used (cane) Motor exam (neuro): Motor abnormalites present dystonia (involving mainly the right side of the face and the right arm) Extrem General: No clubbing, No cyanosis and Yes edema (1+ bipedal edema) Right upper extremity: shoulder/upper arm Details: tenderness Location: of the A-C joint; no swelling, elbow/forearm Details: tenderness Location: of the olecranon and of the lateral epicondyle and wrist Details: tenderness Location: of the volar wrist (on deep palpation) Right lower extremity: knee Details: tenderness and swelling (mild) Left lower extremity: knee Details: tenderness, swelling (mild) and crepitus Results AMB Hemoglobin A1c AMB Hemoglobin A1c 7.0 % Last Edit by Yolanda Pedro CMA on 10/28/23 13 :14 Results Reviewed Results Reviewed: Laboratory Last Values Hgb A1c (Clinic) 7.0 % (4.0-6.0) H 10/28/23 13:02 Assessment and Plan Assessment & Plan (1) CVA (cerebral vascular accident): Code(s): I63.9 - Cerebral infarction, unspecified Qualifiers: CVA mechanism: unspecified Qualified Code(s): I63.9 - Cerebral infarction, unspecified Plan: S/P CVA in May 2022; new CVA in May 2023 - repeat brain MRI revealed (+) new small acute white matter infarct within the deep white matter of the left frontal lobe Continue Aspirin 81 mg QD, Clopidogrel 75 mg QD and high dose statins Follow up with neurology as scheduled - she has appointment with Dr. Boo coming up in a couple of weeks (2) Hemiparesis affecting right side as late effect of cerebrovascular accident (CVA): Code(s): I69.351 - Hemiplegia and hemiparesis following cerebral infarction affecting right dominant side Plan: S/P PT and OT at [facility] a few months ago - was discharged from there on 06/10/2023 She is currently still receiving home PT (3) Dystonia: Code(s): G24.9 - Dystonia, unspecified Plan: This is likely a sequelae of her previous CVA in May 2022 and may gradually subside over time although there is no guarantee on this She is currently on Chlorpromazine 25 mg TID - started by neurology (4) Pure hypercholesterolemia: Code(s): E78.00 - Pure hypercholesterolemia, unspecified Plan: She is cautioned again that her cholesterol level back in December 2021 were very high and had increased further from previous - total cholesterol was at 293 mg/dl and LDL cholesterol was at 194 mg/dl She was finally able to get her fasting lipids rechecked last month (May 2023), with her total cholesterol now still at 275 mg/dl and LDL at 169 mg/dl She was previously on Rosuvastatin 40 mg QD and Ezetimibe 10 mg QD but since her hospital admission last month, her Rx was changed to Atorvastatin 40 mg QD alone Will have her continue on this for now and see how her numbers are when she has her follow up labs done - was instructed to get these done L[facility] Reinforced low cholesterol diet If her cholesterol numbers have not improved significantly with her current Rx, then may need to consider starting her on one of the newer PCSK9 inhibitors for better efficacy (5) 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: Code(s): E11.9 - Type 2 diabetes mellitus without complications Qualifiers: 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 type: type 2 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 halfway insulin use: without terminal block assembler use 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 complication status: with hyperglycemia Qualified Code(s): E11.65 - Type 2 diabetes mellitus with hyperglycemia Plan: Her in-office HgbA1c today is at 7.0% - was >14.0% just a few months ago in April 2023 - goal is <7.0% Reinforced diabetic diet Continue Metformin ER 1000 mg BID, Lantus 30 units Q HS, Trulicity 0.75 mg once a week and Humalog 2 to 10 units with meals and at bedtime per sliding scale for now Follow up with endocrinology as scheduled (6) Benign essential hypertension: Code(s): I10 - Essential (primary) hypertension Plan: Reinforced low-sodium diet - goal is systolic BP of at least 120-130 mm or less Continue Losartan 100 mg QD and Carvedilol 25 mg BID Follow up with cardiology as scheduled (7) Personal history of pulmonary embolism: Code(s): Z86.711 - Personal history of pulmonary embolism Plan: She was taken off Coumadin and switched over to Apixaban 2.5 mg BID by hematology last year as patient has not had any recurrence of her embolism for years This was discontinued and patient was started instead on Clopidogrel 75 mg QD after her recent CVA Follow up with hematology/oncology as scheduled (8) PMR (polymyalgia rheumatica): Code(s): M35.3 - Polymyalgia rheumatica Plan: Patient is currently OFF Prednisone; was previously on Prednisone at 60 mg QD and her diffuse pain have improved considerably with the Rx (9) Fibromyalgia: Code(s): M79.7 - Fibromyalgia Plan: Follow up with Rheumatology as scheduled; can also see rheumatology regarding her PMR if she wants Patient again encouraged on regular exercise and physical activity to help manage her symptoms Continue Gabapentin 400 mg 3 times a day (10) Bilateral primary osteoarthritis of knee: Comment: X-rays of the knees done back on 03/15/2016 showed severe tricompartmental arthritis in both knees Symptoms have improved with cortisone injections from Orthopedics as needed Code(s): M17.0 - Bilateral primary osteoarthritis of knee Plan: Patient currently remains very limited with her activity and mobility due to her knee osteoarthritis and her CVA She is advised that her right leg pain is most likely related to her knee OA; had cortisone injections into her knees from [facility] last year and she felt that the injections were the trigger(s) of most of her recent symptoms of dystonia Repeat x-rays of the right knee in April 2023 revealed (+) tricompartment osteoarthritic change of the right knee, most pronounced in the lateral joint space compartment, where degenerative change is severe Follow up with orthopedics ([facility]) as scheduled (11) Right shoulder pain: Code(s): M25.511 - Pain in right shoulder Qualifiers: Chronicity: unspecified Qualified Code(s): M25.511 - Pain in right shoulder Plan: Right shoulder x-rays done last year showed some findings of AC arthritis in the joint Her shoulder symptoms have since improved with physical therapy Continue Tramadol 50 mg TID PRN for pain (12) Carpal tunnel syndrome, bilateral: Code(s): G56.03 - Carpal tunnel syndrome, bilateral upper limbs Plan: EMG and NCV done back in 2014 revealed (+) moderate carpal tunnel syndrome on the right and mild carpal tunnel syndrome on the left side; EMG was normal Advised that she will need a repeat NCV & EMG if she feels that her right hand symptoms are getting worse and if repeat NCV confirms progression and severity of her CTS, will need to consider referral to orthopedics for median nerve release Would not be able to get her EMG and NCV done at this time due to her current dystonic movements (13) Asthma: Code(s): J45.909 - Unspecified asthma, uncomplicated Qualifiers: Asthma severity: moderate Asthma persistence: persistent Asthma complication type: uncomplicated Qualified Code(s): J45.40 - Moderate persistent asthma, uncomplicated Plan: Stable currently Continue Symbicort 160-4.5 mcg 2 inhalations BID, ,Montelukast 10 mg QD and Ventolin HFA 2 inhalations every 6 hours PRN (14) GERD without esophagitis: Comment: Barium swallow done a couple of years ago showed (+) hiatal hernia with (+) significant acid reflux Code(s): K21.9 - Gastro-esophageal reflux disease without esophagitis Plan: Dietary restrictions reinforced Her previous Omeprazole was changed to Lansoprazole 15 mg QD due to potential interactions of Omeprazole with Clopidogrel (15) Vitamin D deficiency: Code(s): E55.9 - Vitamin D deficiency, unspecified Plan: Continue Vitamin D2 67915 units once a week (added by endocrinology) and Vitamin D3 2000 units daily (16) Vitamin B12 deficiency: Code(s): E53.8 - Deficiency of other specified B group vitamins Plan: Continue Vitamin B12 injections 1000 mcg once a month and oral Vitamin B12 tablets 1000 mcg tablets once a day Will have her recheck her Vitamin B12 level LIDIA for follow up (17) Obesity (BMI 30-39.9): Code(s): E66.9 - Obesity, unspecified Plan: Reinforced diet; exercise and weight loss are unrealistic given patient's comorbidities and recent issues Plan Follow up in 3 months Orders: Orders Complete Blood Count Auto Diff 3 Months D64.9 - Anemia, unspecified Microalbumin, Random (w Creat) 3 Months E11.9 - Type 2 diabetes mellitus without complications AMB Hemoglobin A1c Today Z13.9 - Encounter for screening, unspecified Hemoglobin A1c 3 Months E11.9 - Type 2 diabetes mellitus without complications Comprehensive Candor. Panel Fast 3 Months E78.00 - Pure hypercholesterolemia, unspecified Lipid Panel 3 Months E78.00 - Pure hypercholesterolemia, unspecified UA CC w/rflx Micro + Cult 3 Months R30.0 - Dysuria Vitamin D 25-OH Total 3 Months E55.9 - Vitamin D deficiency, unspecified Medications: New [WALKER LEG RUBBER TIPS] As directed 2 ea 0RF I63.9 - Cerebral infarction, unspecified, I69.351 - Hemiplegia and hemiparesis following cerebral infarction affecting right dominant side [ROLLATOR] As directed 1 ea 0RF I63.9 - Cerebral infarction, unspecified, I69.351 - Hemiplegia and hemiparesis following cerebral infarction affecting right dominant side Coding Level of Care Code Est Pt Level 4 (84862) Complex EM visit Add On G2211 Diagnoses Cerebrovascular accident (CVA), unspecified mechanism I63.9 CVA mechanism: unspecified Hemiparesis affecting right side as late effect of cerebrovascular accident (CVA) I69.351 Dystonia G24.9 Pure hypercholesterolemia E78.00 Type 2 diabetes mellitus with hyperglycemia, without long-term current use of insulin E11.65 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 type: type 2 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 halfway insulin use: without terminal block assembler use 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 complication status: with hyperglycemia Benign essential hypertension I10 Personal history of pulmonary embolism Z86.711 PMR (polymyalgia rheumatica) M35.3 Fibromyalgia M79.7 Bilateral primary osteoarthritis of knee M17.0 Right shoulder pain, unspecified chronicity M25.511 Chronicity: unspecified Carpal tunnel syndrome, bilateral G56.03 Moderate persistent asthma without complication J45.40 Asthma severity: moderate Asthma persistence: persistent Asthma complication type: uncomplicated GERD without esophagitis K21.9 Vitamin D deficiency E55.9 Vitamin B12 deficiency E53.8 Obesity (BMI 30-39.9) E66.9
== END 2023-10-28 14:00 | disposition home or self-care (01) ==
PROVIDERS: PCP Internal Medicine; Visit Provider Internal Medicine
DX: I69.351 Hemiplegia and hemiparesis following cerebral infarction affecting right dominant side (principal); G24.9 Dystonia, unspecified; E11.65 Type 2 diabetes mellitus with hyperglycemia; M35.3 Polymyalgia rheumatica; I10 Essential (primary) hypertension; Z86.711 Personal history of pulmonary embolism; M17.0 Bilateral primary osteoarthritis of knee; M25.511 Pain in right shoulder; G56.03 Carpal tunnel syndrome, bilateral upper limbs; J45.40 Moderate persistent asthma, uncomplicated; K21.9 Gastro-esophageal reflux disease without esophagitis; E55.9 Vitamin D deficiency, unspecified; E53.8 Deficiency of other specified B group vitamins
CPT/HCPCS: 83036; 99214; G2211

== ENCOUNTER 2023-10-29 09:08 | Outpatient (REF) | payer OTHER, SELFPAY ==
[2023-10-29 09:27] LABS: MANUAL DIFF FLAG NO
[2023-10-29 09:36] LABS: Basophils Percent Auto 0.4 % (0-2); Eosinophils Absolute Auto 0.1 X10*3/uL (0.0-0.4); Eosinophils Percent Auto 2.3 % (0-4); Hematocrit 36.1 % (37.0-47.0); Hemoglobin 11.5 g/dl (12.0-16.0); Imm Gran Abs Auto 0.01 X10*3/uL (0.00-0.03); Imm Gran Pct Auto 0.2 % (0.0-0.4); Lymphocytes Absolute Auto 1.8 X10*3/uL (1.2-4.9); Lymphocytes Percent Auto 34.5 % (20-40); Mean Corpuscular HGB Conc 31.9 g/dl (31.0-35.0); Mean Corpuscular Hemoglobin 26.4 pg (27.0-33.0); Mean Corpuscular Volume 82.8 fL (80.0-98.0); Mean Platelet Volume 10.3 fL (9.4-12.3); Monocytes Absolute Auto 0.4 X10*3/uL (0.1-1.2); Monocytes Percent Auto 7.2 % (2-11); Neutrophils Absolute Auto 2.9 x10*3/uL (2.0-8.3); Neutrophils Percent Auto 55.4 % (45-73); Platelet Count 298 X10*3/uL (160-400); Red Blood Count 4.36 X10*6/uL (4.20-5.50); Red Cell Distribution Width 14.2 % (11.0-16.0); White Blood Count 5.3 X10*3/uL (4.8-10.8)
[2023-10-29 10:19] LABS: Alanine Aminotransferase 9 U/L (0-31); Albumin Level 4.2 g/dL (3.5-5.0); Alkaline Phosphatase 94 U/L (39-117); Anion Gap 12 (12-20); Aspartate Amino Transferase 11 U/L (5-31); Bilirubin Total 0.5 mg/dL (0.0-1.0); Blood Urea Nitrogen 11 mg/dL (9-16); Calcium 9.7 mg/dL (8.4-10.2); Carbon Dioxide 29 mmol/L (22-29); Chloride 104 mmol/L (96-108); Estimated Glomerular Filt Rate > 60; Glucose Fasting 192 mg/dL (60-99); Potassium 3.6 mmol/L (3.3-5.1); Sodium 141 mmol/L (135-145)
[2023-10-29 10:25] LABS: TSH reflex Free T4 0.57 uIU/mL (0.32-4.0); Vitamin D 25-OH Total 46.5 ng/mL (>30)
[2023-10-29 10:35] LABS: Estimated Average Glucose 163 mg/dL; Hemoglobin A1c % 7.3 % (<6.0)
[2023-10-29 11:16] LABS: Folate 13.7 ng/mL (> or = 4.0); Vitamin B12 779 pg/mL (200-900)
[2023-10-29 11:16] LABS: Appearance Urine Clear; Color Urine Yellow; Glucose Urine UA Negative (Negative); Leukocyte Esterase Urine Trace (Negative); Nitrite Urine Negative (Negative); PH 6.5 (5.0-9.0); Specific Gravity - Urine 1.015 (1.005-1.025); UMIC TRIGGER UACC YES; Urine Blood Negative (Negative); Urine Ketones Negative (Negative); Urine Protein Negative (Neg-Trace)
[2023-10-29 11:19] LABS: Bacteria Urine None Seen (None Seen); Hyaline Casts Urine 0-2 /LPF (0-2); RBC Urine 0-2 /HPF (0-2); Squamous Epithelial Cell Urine 0-2 /HPF (0-2); WBC Urine 0-5 /HPF (0-5)
[2023-10-29 11:39] LABS: Creatinine Urine 87.26 mg/dL; Microalbum/Creatinine Ratio Ur 18.3 ug/mg cr (<30)
== END 2023-10-29 09:09 | disposition home or self-care (01) ==
LOC: HO.LAB 09:08
PROVIDERS: PCP Internal Medicine; Visit Provider Internal Medicine
DX: E11.9 Type 2 diabetes mellitus without complications (principal); D64.9 Anemia, unspecified; E78.00 Pure hypercholesterolemia, unspecified; E55.9 Vitamin D deficiency, unspecified; E53.8 Deficiency of other specified B group vitamins
CPT/HCPCS: 36415; 80053; 81001; 82043; 82306; 82570; 82607; 82746; 83036; 84443; 85025

== ENCOUNTER → 2023-11-17 14:05 | Outpatient (BNVA) | payer OTHER, SELFPAY | PROVIDERS: PCP Internal Medicine; Visit Provider Registered Nurse Diabetes Educator | DX: E11.65 Type 2 diabetes mellitus with hyperglycemia (principal); Z79.4 Long term (current) use of insulin | CPT/HCPCS: 99211 ==

== ENCOUNTER 2023-12-24 14:04 | Outpatient (AMB) | payer OTHER, SELFPAY ==
--- NOTE | 2023-12-24 14:10 | A.OFFVIS_ITS ---
Vital Signs 12/24/23 14:12 Height 5 ft 7 in Weight 196 lb 3.382 oz BMI 30.7 BP 142/68 H Blood Pressure Location Rt brachial Position Sitting Pulse 72 Pulse Source Pulse Oximeter Intake Visit Reasons: T2DM Intake Note: Patient presents today to re-establish treatment for Type Diabetes Mellitus: Last Diabetic eye exam was on: DUE Last Podiatry exam was on: Does not see a Senior Javascript Developer Most recent HbA1c: 7.3%, 10/29/2023 Random Glucose- ___ mg/dL, Today Medical Billing Clerk Required: Yes Medical Billing Clerk Language: School Photograph Editor Services: Medical Billing Clerk Offered & Declined Accompanied by: Self / Same As Patient Allergies Penicillins [PENICILLINS] Allergy (Severe, Verified 12/24/23 14:11) SOB, rash, itching codeine [CODEINE] Allergy (Intermediate, Verified 12/24/23 14:11) RASH SOB oxycodone [From PERCOCET] Allergy (Intermediate, Verified 12/24/23 14:11) RASH SOB kiwi [KIWI] Allergy (Mild, Verified 12/24/23 14:11) ITCHY IF TOUCHES pineapple [PINEAPPLE] Allergy (Mild, Verified 12/24/23 14:11) ITCHY IF TOUCHES metformin Adverse Reaction (Intermediate, Verified 12/24/23 14:11) dizziness, blurred vision HPI Comments Details: 67 YO F with PMHx T2DM who is seen in F/U for T2DM. The patient last saw Dr. Freitas on 09/15/2022 Initially diagnosed with T2DM in 2001. Current meds: Lantus 30 units and Novolog currently taking 2u TIDac( stopped bedtime dose in October was having some hypoglycemia). She currently on truclity 0.75 mg once a week Previously on Metformin and Jardiance 25 mg PO daily but stopped these over the past year 2/2 side effects Last A1C 7.3% in 10/28. Carol download 69% use with GMI 8.2%, 69% high, 31% target no lows. Hyperglycemic in 200s almost all of the time in past two weeks. She did have her psych med uptitrated-she has gained 6 pounds since the beginning of October. Treats lows with juice. Checks sugar after to ensure it is rising. Treats according to rule of 15's. Family history of T2DM in her Mother and Sister. Last eye exam last mo , has retinopathy. Has neuropathy. Refused foot exam today. Has nephropathy, on Losartan 100 mg PO daily. Has HLD, on Atorvastatin 40 mg PO daily and Zetia 10 mg PO daily. Denies CAD. ROS CONSTITUTIONAL: Denies weight loss, fever and chills. HEENT: Denies changes in vision and hearing. RESPIRATORY: Denies SOB and cough. CV: Denies palpitations and CP GI: Denies abdominal pain, nausea, vomiting and diarrhea. : Denies dysuria and urinary frequency. MSK: Denies new myalgia and joint pain. SKIN: Denies rash and pruritus. NEUROLOGICAL: Denies headache PSYCHIATRIC: Denies recent changes in mood. PHYSICAL EXAM: GENERAL: Alert and oriented x 3. NAD EYES: EOMI. Anicteric. HENT: Moist mucous membranes. No scleral icterus. No cervical lymphadenopathy. LUNGS: Clear to auscultation bilaterally. CARDIOVASCULAR: Regular rate and rhythm. No murmur. No JVD. ABDOMEN: Soft, non-tender +bs EXTREMITIES: No edema. Non-tender. SKIN: No rashes or lesions. Warm. NEUROLOGIC: No focal neurological deficits. CN II-XII grossly intact PSYCHIATRIC: Cooperative. Appropriate mood and affect [facility] Medical History CVA (cerebral vascular accident) Bleeding hemorrhoids Carpal tunnel syndrome, bilateral Internal and external hemorrhoids without complication Diverticulosis Rectal bleed Varicose veins of both lower extremities with pain Hx pulmonary embolism Rectal bleeding Obesity (BMI 30-39.9) Overactive bladder Migraine GERD without esophagitis Allergic rhinitis Fibromyalgia Vitamin B12 deficiency Asthma Bilateral primary osteoarthritis of knee Pure hypercholesterolemia Benign essential hypertension Bilateral lower extremity edema Mammogram abnormal Intertrigo Breast nodule Goiter Vitamin D deficiency HLD (hyperlipidemia) T2DM (type 2 diabetes mellitus) Arthritis Breast pain, right Calcific tendinitis of right hip Right lumbar radiculopathy Right hip pain Low back pain Surgical History Hx of breast surgery History of colonoscopy History of mammogram History of incision and drainage Hx of cataract extraction Hx of cholecystectomy Hx of tubal ligation Hx of eye surgery History of tonsillectomy and adenoidectomy Family History Father Hypertension Myocardial infarction Stroke Mother Hypertension Diabetes Social History Household Members: Spouse, Family and Children Housing: House Are you a primary hospice care transitions coordinator to a significant other at home: No Do you presently have visiting nurse or other home services: No Alcohol intake: never Patient Tobacco Use Status: Never used Tobacco e-Cigarette/Vaping Use: Never Used Second Hand Smoke Exposure: No service: No Current occupational status: disabled Cognitive needs: No Hearing needs: No Vision needs: Yes Physical Exam Vital Signs: Last Vital Signs Pulse 72 12/24/23 14:12 BP 142/68 H 12/24/23 14:12 BMI result Body Mass Index 30.7 Assessment & Plan Assessment & Plan (1) 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: Code(s): E11.9 - Type 2 diabetes mellitus without complications Category: Medical Qualifiers: 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 type: type 2 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 fci insulin use: without delicatessen clerk use 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 complication status: with hyperglycemia Qualified Code(s): E11.65 - Type 2 diabetes mellitus with hyperglycemia Plan: With weight gain and hyperglycemia in past few weeks Need to avoid hypoglycemia Increase novolog to 4 units before meals. continue lantus 30 u. Increase trulicity to 1.5mg weekly Follow up in 4 weeks Medications: New dulaglutide (Trulicity) 1.5 mg (0.5 mL) subcut QWEEK 6 mL 3RF E11.9 - Type 2 diabetes mellitus without complications Changed From Novolog FlexPen U-100 Insulin (insulin aspart U-100) See Protocol Take 2 to 10 units, dosed PER SLIDING SCALE, 4 times a day - with meals and at bedtime, subcutaneously; 15 mL 5RF NS To Novolog FlexPen U-100 Insulin (insulin aspart U-100) 4 units See Protocol subcut TIDWMEAL 15 mL 5RF NS Discontinued dulaglutide (Trulicity) Discontinued Reason: Doctor's Order 0.75 mg (0.5 mL) subcut QWEEK 2 mL 2RF E11.65 - Type 2 diabetes mellitus with hyperglycemia Coding Level of Care Code Est Pt Level 5 (14114) Diagnoses Type 2 diabetes mellitus with hyperglycemia, without long-term current use of insulin E11.65 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 type: type 2 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 delicatessen clerk insulin use: without fci use 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 complication status: with hyperglycemia Time Spent (min) 42
[2023-12-24 14:12] VITALS: BP 142/68; PULSE 72; BMI 30.7
[2023-12-29 15:49] LABS: Glucose, Whole Blood 210 mg/dL (60-115)
== END 2023-12-24 14:37 | disposition home or self-care (01) ==
PROVIDERS: PCP Internal Medicine; Visit Provider Internal Medicine
DX: E11.65 Type 2 diabetes mellitus with hyperglycemia (principal)

== ENCOUNTER → 2023-12-24 14:04 | Outpatient (BNVA) | payer OTHER, SELFPAY | PROVIDERS: PCP Internal Medicine; Visit Provider Internal Medicine | DX: E11.65 Type 2 diabetes mellitus with hyperglycemia (principal); Z79.4 Long term (current) use of insulin | CPT/HCPCS: 82947; 99212 ==

== ENCOUNTER 2023-12-31 16:07 | Outpatient (REF) | payer OTHER, SELFPAY ==
[2023-12-31 16:22] LABS: MANUAL DIFF FLAG NO
[2023-12-31 16:47] LABS: Basophils Percent Auto 0.3 % (0-2); Eosinophils Absolute Auto 0.1 X10*3/uL (0.0-0.4); Eosinophils Percent Auto 1.1 % (0-4); Hematocrit 35.8 % (37.0-47.0); Hemoglobin 11.5 g/dl (12.0-16.0); Imm Gran Abs Auto 0.02 X10*3/uL (0.00-0.03); Imm Gran Pct Auto 0.3 % (0.0-0.4); Lymphocytes Absolute Auto 2.9 X10*3/uL (1.2-4.9); Lymphocytes Percent Auto 44.6 % (20-40); Mean Corpuscular HGB Conc 32.1 g/dl (31.0-35.0); Mean Corpuscular Hemoglobin 26.8 pg (27.0-33.0); Mean Corpuscular Volume 83.4 fL (80.0-98.0); Mean Platelet Volume 10.8 fL (9.4-12.3); Monocytes Absolute Auto 0.5 X10*3/uL (0.1-1.2); Monocytes Percent Auto 7.8 % (2-11); Neutrophils Absolute Auto 2.9 x10*3/uL (2.0-8.3); Neutrophils Percent Auto 45.9 % (45-73); Platelet Count 313 X10*3/uL (160-400); Red Blood Count 4.29 X10*6/uL (4.20-5.50); Red Cell Distribution Width 14.6 % (11.0-16.0); White Blood Count 6.4 X10*3/uL (4.8-10.8)
[2023-12-31 17:39] LABS: Erythrocyte Sedimentation Rate 38 MM/HR (0-20)
== END 2023-12-31 16:08 | disposition home or self-care (01) ==
LOC: HO.LAB 16:07
PROVIDERS: PCP Internal Medicine; Visit Provider Psychiatry & Neurology Neurology
DX: I63.9 Cerebral infarction, unspecified (principal)
CPT/HCPCS: 36415; 85025; 85652

== ENCOUNTER 2024-02-09 14:53 | Outpatient (AMB) | payer OTHER, SELFPAY ==
[2024-02-09 15:03] VITALS: BP 136/80; PULSE 88; O2SAT 97; BMI 30.9
--- NOTE | 2024-02-09 15:03 | A.OFFPC_ITS ---
Vital Signs 02/09/24 15:03 Height 5 ft 7 in Weight 197 lb 2 oz BMI 30.9 BP 136/80 Blood Pressure Location Lt brachial Position Sitting Pulse 88 Pulse Source Pulse Oximeter Pulse Oximetry (%) 97 Oxygen Delivery Method Room Air Intake Visit Reasons: 3mth f/u Corsets Salesperson Required: No Accompanied by: Self / Same As Patient Allergies Penicillins [PENICILLINS] Allergy (Severe, Verified 02/09/24 15:18) SOB, rash, itching codeine [CODEINE] Allergy (Intermediate, Verified 02/09/24 15:18) RASH SOB oxycodone [From PERCOCET] Allergy (Intermediate, Verified 02/09/24 15:18) RASH SOB kiwi [KIWI] Allergy (Mild, Verified 02/09/24 15:18) ITCHY IF TOUCHES pineapple [PINEAPPLE] Allergy (Mild, Verified 02/09/24 15:18) ITCHY IF TOUCHES metformin Adverse Reaction (Intermediate, Verified 02/09/24 15:18) dizziness, blurred vision Medication List - Last Reconciled 02/09/24 by Erick Villanueva MD albuterol sulfate 2.5 mg (3 mL) continuous nebulization Q4-6H PRN ascorbate calcium (vitamin C) 500 mg PO DAILY 90 days aspirin (Adult Aspirin Regimen) 81 mg PO DAILY 90 days atorvastatin 80 mg PO DAILY blood sugar diagnostic (OneTouch Ultra Test strips) 5 times per day blood sugar diagnostic (FreeStyle Lite Strips) As directed to test blood sugar three times a day blood-glucose meter (FreeStyle [place] Lite kit) As directed blood-glucose meter (OneTouch Ultra2 Meter kit) As directed 3x/day carvedilol (Coreg) 25 mg PO BID 90 days chlorpromazine 50 mg PO TID cholecalciferol (vitamin D3) 5,000 units PO DAILY 90 days clopidogrel 75 mg PO DAILY [compression stockings Use daily as directed as needed, strength - medium; length - knee high ] cyanocobalamin (vitamin B-12) 1,000 mcg PO DAILY 90 days dulaglutide (Trulicity) 1.5 mg (0.5 mL) subcut QWEEK ferrous sulfate 325 mg PO BID flash glucose scanning reader ([employer] Cod [employer]Style Carol 2 Devol) As directed flash glucose sensor (FreeStyle Carol 2 Sensor kit) As directed change every 14 days folic acid 1 mg PO DAILY 90 days gabapentin 400 mg PO TID 30 days glucagon (Gvoke HypoPen 1-Pack) 1 mg (0.2 mL) subcut ONCE insulin glargine (Lantus Solostar U-100 Insulin) 30 units (0.3 mL) subcut QPM 30 days lancets 5 times per day lancets (FreeStyle Lancets) As directed test blood sugar three times a day lansoprazole 15 mg PO DAILY [LIGHTWEIGHT STANDARD WHEELCHAIR As directed] [LIGHTWEIGHT WHEELCHAIR As directed] losartan 100 mg PO DAILY 90 days Novolog FlexPen U-100 Insulin (insulin aspart U-100) 4 units See Protocol subcut TIDWMEAL NS pen needle, diabetic (BD Nella 2nd Gen Pen Needle) test 5 times per day pen needle, diabetic (BD Ultra-Fine Micro Pen Needle) 5 times a day as directed - Lantus QD and Humalog QID [ROLLATOR As directed] tramadol 50 mg PO TID PRN 30 days [Transport wheel chair As directed] Ventolin HFA 90 mcg/actuation (albuterol sulfate) 2 puffs inhalation Q4-6H PRN NS [WALKER LEG RUBBER TIPS As directed] Tobacco use date assessed: 02/09/24 Fall risk assessment: 2 + Falls in past year Last assessed Fall Risk: 02/09/24 Dental Screening Dental Screen Date: 02/09/24 Did you have a dental visit in the last 12 months?: Yes Did you have a dental problem in the last 6 months where you did not have access to dental care?: No Was dental information given to patient?: Patient has dentist HPI 3mth f/u HPI Details Patient comes in today for her follow up visit States that she still has the involuntary repetitive movements of her right arm and that they are driving her crazy These movements seem to be more pronounced when the patient is sitting down and is idle as opposed to when she is up and moving about and grasping her walker with her hand - her involuntary movements are hardly noticeable when she is using her walker States that Dr. Boo just recently increased her Chlorpromazine to 50 mg TID but that has not really resulted in any noticeable improvement on the patient's part States that she has no trouble sleeping at night and that the movements do not bother her or keep her up Her gait also appears to have improved over the past few months as she is seen to be moving around much faster although she still uses her walker all the time when moving about She is wondering if a referral to a specialty clinic for movement disorders may be helpful for her situation Would like to try to get a referral to neurology at [facility] to look into this She is also currently out of her Plavix - states that her Rx ran out a few weeks ago and she could not get her Rx refilled for unclear reasons and is wondering if this means that her Rx has been stopped although she does not recall being advised by any of her doctors to do so She denies any increased headaches or dizziness Denies any chest pains, no SOB No nausea/vomiting, no abdominal pain No change in bowel habits noted She was also apparently started by endocrinology on Trulicity at her last visit with them She does not appear to have had any follow up labs done recently [facility] Medical History (Updated 02/15/24 @ 02:56 by Erick Villanueva MD) Primary osteoarthritis, right shoulder CVA (cerebral vascular accident) Bleeding hemorrhoids Carpal tunnel syndrome, bilateral Internal and external hemorrhoids without complication Diverticulosis Rectal bleed Varicose veins of both lower extremities with pain Hx pulmonary embolism Rectal bleeding Obesity (BMI 30-39.9) Overactive bladder Migraine GERD without esophagitis Allergic rhinitis Fibromyalgia Vitamin B12 deficiency Asthma Bilateral primary osteoarthritis of knee Pure hypercholesterolemia Benign essential hypertension Bilateral lower extremity edema Mammogram abnormal Intertrigo Breast nodule Goiter Vitamin D deficiency HLD (hyperlipidemia) T2DM (type 2 diabetes mellitus) Arthritis Breast pain, right Calcific tendinitis of right hip Right lumbar radiculopathy Right hip pain Low back pain Surgical History Hx of breast surgery History of colonoscopy History of mammogram History of incision and drainage Hx of cataract extraction Hx of cholecystectomy Hx of tubal ligation Hx of eye surgery History of tonsillectomy and adenoidectomy Family History Father Hypertension Myocardial infarction Stroke Mother Hypertension Diabetes Social History Household Members: Spouse, Family and Children Housing: House Are you a primary healthcare interpreter to a significant other at home: No Do you presently have visiting nurse or other home services: No Alcohol intake: never Patient Tobacco Use Status: Never used Tobacco e-Cigarette/Vaping Use: Never Used Second Hand Smoke Exposure: No service: No Current occupational status: disabled Cognitive needs: No Hearing needs: No Vision needs: Yes Questionnaire PHQ-9 Over the last 2 weeks, how often have you been bothered by any of the following problems? 1. Little interest or pleasure in doing things: not at all 2. Feeling down, depressed, or hopeless: not at all 3. Trouble falling or staying asleep, or sleeping too much: not at all 4. Feeling tired or having little energy: not at all 5. Poor appetite or overeating: not at all 6. Feeling bad about yourself - or that you are a failure or have let yourself or your family down: not at all 7. Trouble concentrating on things, such as reading the newspaper or watching television: not at all 8. Moving or speaking so slowly that other people could have noticed. Or the opposite - being so fidgety or restless that you have been moving around a lot more than usual: not at all 9. Thoughts that you would be better off or of hurting yourself in some way: not at all Total score: 0 Depression Screening Interpretation: Negative Depression Screening Done: Yes 61319 - PHQ-9 Billing: Yes Source: Developed by Drs. Taj Willson, Elaine Tsai, Dyllan Singh and colleagues, with an educational cory from [employer]. Thrive Questionnaire Date Thrive assessed: 02/09/24 I am a: Patient What is your living situation today?: I have a steady place to live Within the past 12 months, did the food you bought not last and you didn't have the money to get more?: Never true Within the past 12 months, did you worry whether your food would run out before you got money to buy more?: Never true Do you have trouble paying for medicines?: No Do you have trouble getting transportation to medical appointments?: No Do you have trouble paying your heating and electricity bill?: No Do you have trouble taking care of your child, family member or friend?: No Do you have trouble with day-to-day activities such as bathing, preparing meals, shopping, managing finances, etc.?: No Are you currently unemployed and looking for a job?: No Are you interested in more education?: No Please select the resources that you would like help with: None Currently or been in a relationship where the following occur: No concerns reported THRIVE Score: 0 AUDIT C Alcohol Use Questionnaire (AUDIT-C) 1. How often do you have a drink containing alcohol?: Never 3. How often do you have six or more drinks on one occasion?: Never Total Score: 0 Score Reviewed/Action Taken: Yes LELE-7 AMB Questionnaire LELE-7 Date LELE - 7 assessed: 02/09/24 Feeling nervous, anxious, or on edge: 0 = Not at all Not being able to stop or control worryin = Not at all Worrying too much about different things: 0 = Not at all Trouble relaxin = Not at all Being so restless that it is hard to sit still: 0 = Not at all Becoming easily annoyed or irritable: 0 = Not at all Feeling afraid as if something awful might happen: 0 = Not at all Total LELE-7 score (0-4 normal; 5-9 mild; 10-14 moderate; 15-21 severe): 0 Source: Developed by Drs. Taj Willson, Elaine Tsai, Dyllan Singh and colleagues, with an educational cory from [employer]. Review of Systems Const Denies chills, Reports fatigue, Denies fever(s) and Denies headache(s) ENT Denies dysphagia, Denies dizziness, Denies otalgia, Denies headache(s), Reports neck pain (increasing), Denies odynophagia and Denies sore throat Card Denies chest pain, Denies rapid heart rate, Denies palpitations and Reports dyspnea on exertion (mild) Resp Denies cough, Reports dyspnea on exertion (mild) and Denies wheezing GI Denies abdominal pain, Denies dysphagia, Denies nausea, Denies odynophagia and Denies vomiting Denies nocturia, Denies dysuria and Denies urinary urgency Musc Details: (+) pain over her entire right side, from the neck and shoulder down to the leg Denies back pain, Reports arthralgias (involving both shoulders, right elbow, arm and leg; R knee), Denies joint swelling, Reports neck pain (increasing) and Reports numbness (on and off, over the fingers of the right hand) Skin/Breast Denies rash Neuro Details: (+) recurrent, involuntary movements involving primarily the right side of the face and right arm/hand Denies dizziness, Denies headache(s) and Reports numbness (on and off, over the fingers of the right hand) Psych Reports anxiety (better controlled) and Reports depression (better controlled) Endo Reports fatigue and Denies palpitations Aller/Immun Denies wheezing Physical exam (Primary Care) Vital Signs: Last Vital Signs Pulse 88 02/09/24 15:03 BP 136/80 02/09/24 15:03 Pulse Ox 97 02/09/24 15:03 Oxygen Delivery Method Room Air 02/09/24 15:03 BMI result Body Mass Index 30.9 Tobacco/Smoking Status: Tobacco use Status Tobacco use date assessed 02/09/24 02/09/24 15:10 Patient Tobacco Use Status Never used Tobacco 02/09/24 15:10 e-Cigarette/Vaping Use Never Used 02/09/24 15:10 PHQ-9: PHQ-9 Score PHQ-9: Total score 0 02/09/24 15:33 Depression Screening Interpretation: Negative Thrive Assessment: Date of Thrive Assessment Date Thrive assessed 02/09/24 02/09/24 15:10 Currently or been in a relationship where the following occur: No concerns reported Const General: no acute distress and alert HENMT Ears: TM's normal bilaterally and EAC's normal Throat: Yes posterior oropharynx normal and Yes tonsils normal (no TP congestion noted) Neck Neck: Yes no lymphadenopathy, Yes supple and Yes tender (over the cervical spine on exam) Thyroid: Thyroid normal Resp Auscultation: clear to auscultation bilaterally, no rales and no wheezes Cardio Rate: regular rate Rhythm: regular rhythm Heart sounds: no murmurs GI Palpation (GI): Soft to palpation and nontender Auscultation: normal bowel sounds Back/Spine/Pelvis Cervical Spine: cervical muscular tenderness (bilateral) and Cervical spine tenderness Thoracic/Lumbar Spine: paraspinal muscle tenderness bilaterally in the upper thoracic and lumbar spinal tenderness Skin Rashes: no rashes Neuro Other: right hemiparesis Cognition (Neuro): normal cognition Gait exam (Neuro): Antalgic gait present and Assistive device used (cane) Motor exam (neuro): Motor abnormalites present dystonia (involving mainly the right side of the face and the right arm) Extrem General: No clubbing, No cyanosis and Yes edema (1+ bipedal edema) Right upper extremity: shoulder/upper arm Details: tenderness Location: of the A-C joint; no swelling, elbow/forearm Details: tenderness Location: of the olecranon and of the lateral epicondyle and wrist Details: tenderness Location: of the volar wrist (on deep palpation) Right lower extremity: knee Details: tenderness and swelling (mild) Left lower extremity: knee Details: tenderness, swelling (mild) and crepitus Coding Level of Care Code Est Pt Level 4 (67638) Complex EM visit Add On G2211 Diagnoses Cerebrovascular accident (CVA), unspecified mechanism I63.9 CVA mechanism: unspecified Hemiparesis affecting right side as late effect of cerebrovascular accident (CVA) I69.351 Dystonia G24.9 Pure hypercholesterolemia E78.00 Type 2 diabetes mellitus with hyperglycemia, without long-term current use of insulin E11.65 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 type: type 2 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 terminal operations manager insulin use: without detention use 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 complication status: with hyperglycemia Benign essential hypertension I10 Personal history of pulmonary embolism Z86.711 Fibromyalgia M79.7 Bilateral primary osteoarthritis of knee M17.0 Primary osteoarthritis, right shoulder M19.011 Carpal tunnel syndrome, bilateral G56.03 Moderate persistent asthma without complication J45.40 Asthma severity: moderate Asthma persistence: persistent Asthma complication type: uncomplicated GERD without esophagitis K21.9 Vitamin B12 deficiency E53.8 Vitamin D deficiency E55.9 Obesity (BMI 30-39.9) E66.9 Additional Codes PHQ-9 - 36623 - PHQ-9 Billing: Yes ([id number]) Assessment & Plan Assessment & Plan (1) CVA (cerebral vascular accident): Code(s): I63.9 - Cerebral infarction, unspecified Category: Medical Qualifiers: CVA mechanism: unspecified Qualified Code(s): I63.9 - Cerebral infarction, unspecified Plan: S/P CVA in May 2022; new CVA in May 2023 - repeat brain MRI revealed (+) new small acute white matter infarct within the deep white matter of the left frontal lobe Continue Aspirin 81 mg QD, Clopidogrel 75 mg QD and high dose statins Follow up with neurology (Dr. Boo) as scheduled (2) Hemiparesis affecting right side as late effect of cerebrovascular accident (CVA): Code(s): I69.351 - Hemiplegia and hemiparesis following cerebral infarction affecting right dominant side Category: Medical Plan: S/P PT and OT at [facility] earlier this year (was discharged from there on 06/10/2023), followed by home PT for a while She is currently requesting for a referral for PT again as she feels that her mobility has declined recently due to a perceived increased in her right-sided dystonic movements Will refer her back to PT, per her request (3) Dystonia: Code(s): G24.9 - Dystonia, unspecified Category: Medical Plan: This is likely a sequelae of her previous CVA in May 2022 and may gradually subside over time although there is no guarantee on this Continue Chlorpromazine 50 mg TID Follow up with neurology as scheduled Per request, we will also try referring patient to neurology at [facility] to see if they have any recommendations regarding having patient go to their Movement Disorder Clinic there or not (4) Pure hypercholesterolemia: Code(s): E78.00 - Pure hypercholesterolemia, unspecified Category: Medical Plan: She was cautioned that her cholesterol level back in December 2021 were very high and had increased further from previous - total cholesterol was at 293 mg/dl and LDL cholesterol was at 194 mg/dl Her fasting lipids rechecked in May 2023 revealed a total cholesterol of 275 mg/dl and LDL at 169 mg/dl She was previously on Rosuvastatin 40 mg QD and Ezetimibe 10 mg QD but since her hospital admission a few months ago, her Rx was changed to Atorvastatin 40 mg QD alone She has not been able to get her cholesterol levels rechecked since Reinforced low cholesterol diet Will have her recheck her fasting lipids in 3 months - if her cholesterol numbers have not improved significantly with her current Rx, then may need to consider starting her on one of the newer PCSK9 inhibitors for better efficacy (5) 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: Code(s): E11.9 - Type 2 diabetes mellitus without complications Category: Medical Qualifiers: 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 type: type 2 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 terminal operations manager insulin use: without terminal operations manager use 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 complication status: with hyperglycemia Qualified Code(s): E11.65 - Type 2 diabetes mellitus with hyperglycemia Plan: Her HgbA1c was at 7.3% when last checked a few months ago on 10/29/2023 - goal is at least <7.0% Reinforced diabetic diet Continue Metformin ER 1000 mg BID, Lantus 30 units Q HS, Trulicity 0.75 mg once a week and Humalog 2 to 10 units with meals and at bedtime per sliding scale for now Follow up with endocrinology as scheduled (6) Benign essential hypertension: Code(s): I10 - Essential (primary) hypertension Category: Medical Plan: Reinforced low-sodium diet - goal is systolic BP of at least 120-130 mm or less Continue Losartan 100 mg QD and Carvedilol 25 mg BID Follow up with cardiology as scheduled (7) Personal history of pulmonary embolism: Code(s): Z86.711 - Personal history of pulmonary embolism Category: Medical Plan: She was taken off Coumadin and switched over to Apixaban 2.5 mg BID by hematology last year as patient has not had any recurrence of her embolism for years This was discontinued and patient was started instead on Clopidogrel 75 mg QD after her recent CVA Follow up with hematology/oncology as scheduled (8) Fibromyalgia: Code(s): M79.7 - Fibromyalgia Category: Medical Plan: Follow up with Rheumatology as scheduled Patient again encouraged on regular exercise and physical activity to help manage her symptoms Continue Gabapentin 400 mg 3 times a day (9) Bilateral primary osteoarthritis of knee: Comment: X-rays of the knees done back on 03/15/2016 showed severe tricompartmental arthritis in both knees Symptoms have improved with cortisone injections from Orthopedics as needed Code(s): M17.0 - Bilateral primary osteoarthritis of knee Category: Medical Plan: Patient currently remains very limited with her activity and mobility due to her knee osteoarthritis and her CVA She is advised that her right leg pain is most likely related to her knee OA; had cortisone injections into her knees from [facility] last year and she felt that the injections were the trigger(s) of most of her recent symptoms of dystonia Repeat x-rays of the right knee in April 2023 revealed (+) tricompartment osteoarthritic change of the right knee, most pronounced in the lateral joint space compartment, where degenerative change is severe Follow up with orthopedics ([facility]) as scheduled (10) Primary osteoarthritis, right shoulder: Code(s): M19.011 - Primary osteoarthritis, right shoulder Category: Medical Plan: Right shoulder x-rays done last year showed some findings of AC arthritis in the joint Her shoulder symptoms have since improved with physical therapy Continue Tramadol 50 mg TID PRN for pain (11) Carpal tunnel syndrome, bilateral: Code(s): G56.03 - Carpal tunnel syndrome, bilateral upper limbs Category: Medical Plan: EMG and NCV done back in 2014 revealed (+) moderate carpal tunnel syndrome on the right and mild carpal tunnel syndrome on the left side; EMG was normal Advised that she will need a repeat NCV & EMG if she feels that her right hand symptoms are getting worse and if repeat NCV confirms progression and severity of her CTS, will need to consider referral to orthopedics for median nerve relea se She would not be able to get her EMG and NCV done at this time due to her current dystonic movements (12) Asthma: Code(s): J45.909 - Unspecified asthma, uncomplicated Category: Medical Qualifiers: Asthma severity: moderate Asthma persistence: persistent Asthma complication type: uncomplicated Qualified Code(s): J45.40 - Moderate pers istent asthma, uncomplicated Plan: Stable currently Continue Symbicort 160-4.5 mcg 2 inhalations BID, ,Montelukast 10 mg QD and Ventolin HFA 2 inhalations every 6 hours PRN (13) GERD without esophagitis: Comment: Barium swallow done a couple of years ago showed (+) hiatal hernia with (+) significant acid reflux Code(s): K21.9 - Gastro-esophageal reflux disease without esophagitis Category: Medical Plan: Dietary restrictions reinforced Her previous Omeprazole was changed to Lansoprazole 15 mg QD due to potential interactions of Omeprazole with Clopidogrel (14) Vitamin B12 deficiency: Code(s): E53.8 - Deficiency of other specified B group vitamins Category: Medical Plan: Continue Vitamin B12 injections 1000 mcg once a month and oral Vitamin B12 tablets 1000 mcg tablets once a day (15) Vitamin D deficiency: Code(s): E55.9 - Vitamin D deficiency, unspecified Category: Medical Plan: Continue Vitamin D2 14946 units once a week (added by endocrinology) and Vitamin D3 2000 units daily (16) Obesity (BMI 30-39.9): Code(s): E66.9 - Obesity, unspecified Category: Medical Plan: Reinforced diet; exercise and weight loss are unrealistic given patient's comorbidities and recent issues Plan Follow up in 3 months Orders: Orders Complete Blood Count Auto Diff 3 Months D64.9 - Anemia, unspecified PT Evaluation and Treatment 02/09/24 I63.9 - Cerebral infarction, unspecified, I69.351 - Hemiplegia and hemiparesis following cerebral infarction affecting right dominant side, R25.9 - Unspecified abnormal involuntary movements Hemoglobin A1c 3 Months E11.9 - Type 2 diabetes mellitus without complications Lipid Panel 3 Months E78.00 - Pure hypercholesterolemia, unspecified Comprehensive [place]. Panel Fast 3 Months E78.00 - Pure hypercholesterolemia, unspecified TSH reflex Free T4 3 Months E78.00 - Pure hypercholesterolemia, unspecified UA CC w/rflx Micro + Cult 3 Months R30.0 - Dysuria Vitamin D 25-OH Total 3 Months E55.9 - Vitamin D deficiency, unspecified Referrals Neurology Referral I69.351 - Hemiplegia and hemiparesis following cerebral infarction affecting right dominant side Medications: Changed From clopidogrel 75 mg PO DAILY 90 tabs 0RF To clopidogrel 75 mg PO DAILY 90 days 90 tabs 3RF
== END 2024-02-09 15:39 | disposition home or self-care (01) ==
PROVIDERS: PCP Internal Medicine; Visit Provider Internal Medicine
DX: E11.65 Type 2 diabetes mellitus with hyperglycemia (principal); I69.351 Hemiplegia and hemiparesis following cerebral infarction affecting right dominant side; G24.9 Dystonia, unspecified; E78.00 Pure hypercholesterolemia, unspecified; I10 Essential (primary) hypertension; Z86.711 Personal history of pulmonary embolism; M79.7 Fibromyalgia; M17.0 Bilateral primary osteoarthritis of knee; M19.011 Primary osteoarthritis, right shoulder; G56.03 Carpal tunnel syndrome, bilateral upper limbs; J45.40 Moderate persistent asthma, uncomplicated; K21.9 Gastro-esophageal reflux disease without esophagitis

== ENCOUNTER → 2024-02-09 14:53 | Outpatient (BNVA) | payer OTHER, SELFPAY | PROVIDERS: PCP Internal Medicine; Visit Provider Internal Medicine | DX: I63.9 Cerebral infarction, unspecified (principal); G24.9 Dystonia, unspecified; E78.00 Pure hypercholesterolemia, unspecified; I69.351 Hemiplegia and hemiparesis following cerebral infarction affecting right dominant side; E11.65 Type 2 diabetes mellitus with hyperglycemia; I10 Essential (primary) hypertension; M79.7 Fibromyalgia; M17.0 Bilateral primary osteoarthritis of knee; M19.011 Primary osteoarthritis, right shoulder; J45.40 Moderate persistent asthma, uncomplicated; G56.03 Carpal tunnel syndrome, bilateral upper limbs; Z86.711 Personal history of pulmonary embolism | CPT/HCPCS: 96127; 99212 ==

== ENCOUNTER 2024-03-01 14:15 | Outpatient (REF) | payer OTHER, SELFPAY | END 2024-03-01 14:16 | disposition home or self-care (01) | LOC: HO.MRI 14:15 | PROVIDERS: PCP Internal Medicine; Visit Provider Psychiatry & Neurology Neurology | DX: G25.9 Extrapyramidal and movement disorder, unspecified (principal) | CPT/HCPCS: 70551 ==

== ENCOUNTER 2024-05-16 15:45 | Outpatient (AMB) | payer MEDICARE, SELFPAY ==
--- NOTE | 2024-05-16 15:54 | MHC.PC.OV ---
Vital Signs 05/16/24 15:55 05/16/24 16:38 Height 5 ft 7 in BMI Reason not done Patient refused/unable BP 158/90 H 160/90 H Blood Pressure Location Lt brachial Lt brachial Position Sitting Sitting Pulse 104 H Pulse Source Pulse Oximeter Pulse Oximetry (%) 95 Oxygen Delivery Method Room Air Intake Visit Reasons: 3 Months f/u Class C Driver Required: No Accompanied by: Self / Same As Patient Allergies Penicillins [PENICILLINS] Allergy (Severe, Verified 05/16/24 16:36) SOB, rash, itching codeine [CODEINE] Allergy (Intermediate, Verified 05/16/24 16:36) RASH SOB oxycodone [From PERCOCET] Allergy (Intermediate, Verified 05/16/24 16:36) RASH SOB kiwi [KIWI] Allergy (Mild, Verified 05/16/24 16:36) ITCHY IF TOUCHES pineapple [PINEAPPLE] Allergy (Mild, Verified 05/16/24 16:36) ITCHY IF TOUCHES metformin Adverse Reaction (Intermediate, Verified 05/16/24 16:36) dizziness, blurred vision Medication List - Last Reconciled 05/16/24 by Erick Villanueva MD albuterol sulfate 2.5 mg (3 mL) continuous nebulization Q4-6H PRN ascorbate calcium (vitamin C) 500 mg PO DAILY 90 days aspirin (Adult Aspirin Regimen) 81 mg PO DAILY 90 days atorvastatin 80 mg PO DAILY blood sugar diagnostic (OneTouch Ultra Test strips) 5 times per day blood sugar diagnostic (FreeStyle Lite Strips) As directed to test blood sugar three times a day blood-glucose meter (FreeStyle [place] Lite kit) As directed blood-glucose meter (OneTouch Ultra2 Meter kit) As directed 3x/day carvedilol (Coreg) 25 mg PO BID 90 days chlorpromazine 50 mg PO TID cholecalciferol (vitamin D3) 5,000 units PO DAILY 90 days clopidogrel 75 mg PO DAILY 90 days [compression stockings Use daily as directed as needed, strength - medium; length - knee high ] cyanocobalamin (vitamin B-12) 1,000 mcg PO DAILY 90 days dulaglutide (Trulicity) 1.5 mg (0.5 mL) subcut QWEEK ferrous sulfate 325 mg PO BID flash glucose scanning reader (shoply Carol 2 [place]) As directed flash glucose sensor (FreeStyle Carol 2 Sensor kit) As directed change every 14 days folic acid 1 mg PO DAILY 90 days gabapentin 400 mg PO TID 30 days glucagon (Gvoke HypoPen 1-Pack) 1 mg (0.2 mL) subcut ONCE insulin glargine (Lantus Solostar U-100 Insulin) 30 units (0.3 mL) subcut QPM 30 days lancets 5 times per day lancets (FreeStyle Lancets) As directed test blood sugar three times a day lansoprazole 15 mg PO DAILY [LIGHTWEIGHT STANDARD WHEELCHAIR As directed] [LIGHTWEIGHT WHEELCHAIR As directed] losartan 100 mg PO DAILY 90 days Novolog FlexPen U-100 Insulin (insulin aspart U-100) 4 units See Protocol subcut TIDWMEAL NS pen needle, diabetic (BD Nella 2nd Gen Pen Needle) test 5 times per day pen needle, diabetic (BD Ultra-Fine Micro Pen Needle) 5 times a day as directed - Lantus QD and Humalog QID [ROLLATOR As directed] tramadol 50 mg PO TID PRN 30 days [Transport wheel chair As directed] Ventolin HFA 90 mcg/actuation (albuterol sulfate) 2 puffs inhalation Q4-6H PRN NS [WALKER LEG RUBBER TIPS As directed] Tobacco use date assessed: 05/16/24 Fall risk assessment: No Falls in past year Last assessed Fall Risk: 05/16/24 Dental Screening Dental Screen Date: 05/16/24 Did you have a dental visit in the last 12 months?: No Did you have a dental problem in the last 6 months where you did not have access to dental care?: No Was dental information given to patient?: No HPI 3 Months f/u HPI Details Patient comes in today for her follow-up visit States that she is flying out to [place] tomorrow for a couple of weeks Relates that she has been experiencing some on and off dizziness lately; denies any headaches She denies any chest pains, no increased shortness of breath No nausea/vomiting, no abdominal pain No change in bowel habits noted She was not able to get her follow-up labs done prior to her appointment today It also appears that she missed her neurology follow-up appointment last month (March 2024) but her daughter states that they had to cancel that appointment due to some issues with patient's insurance and they will try to reschedule her appointment again once this is clarified [facility] Medical History Primary osteoarthritis, right shoulder CVA (cerebral vascular accident) Bleeding hemorrhoids Carpal tunnel syndrome, bilateral Internal and external hemorrhoids without complication Diverticulosis Rectal bleed Varicose veins of both lower extremities with pain Hx pulmonary embolism Rectal bleeding Obesity (BMI 30-39.9) Overactive bladder Migraine GERD without esophagitis Allergic rhinitis Fibromyalgia Vitamin B12 deficiency Asthma Bilateral primary osteoarthritis of knee Pure hypercholesterolemia Benign essential hypertension Bilateral lower extremity edema Mammogram abnormal Intertrigo Breast nodule Goiter Vitamin D deficiency HLD (hyperlipidemia) T2DM (type 2 diabetes mellitus) Arthritis Breast pain, right Calcific tendinitis of right hip Right lumbar radiculopathy Right hip pain Low back pain Surgical History Hx of breast surgery History of colonoscopy History of mammogram History of incision and drainage Hx of cataract extraction Hx of cholecystectomy Hx of tubal ligation Hx of eye surgery History of tonsillectomy and adenoidectomy Family History Father Hypertension Myocardial infarction Stroke Mother Hypertension Diabetes Social History Household Members: Spouse, Family and Children Housing: House Are you a primary lawn care technician to a significant other at home: No Do you presently have visiting nurse or other home services: No Alcohol intake: never Patient Tobacco Use Status: Never used Tobacco e-Cigarette/Vaping Use: Never Used Second Hand Smoke Exposure: No service: No Current occupational status: disabled Cognitive needs: No Hearing needs: No Vision needs: Yes Questionnaire PHQ-9 Over the last 2 weeks, how often have you been bothered by any of the following problems? 1. Little interest or pleasure in doing things: not at all 2. Feeling down, depressed, or hopeless: not at all 3. Trouble falling or staying asleep, or sleeping too much: not at all 4. Feeling tired or having little energy: not at all 5. Poor appetite or overeating: not at all 6. Feeling bad about yourself - or that you are a failure or have let yourself or your family down: not at all 7. Trouble concentrating on things, such as reading the newspaper or watching television: not at all 8. Moving or speaking so slowly that other people could have noticed. Or the opposite - being so fidgety or restless that you have been moving around a lot more than usual: not at all 9. Thoughts that you would be better off or of hurting yourself in some way: not at all Total score: 0 Depression Screening Interpretation: Negative Depression Screening Done: Yes 85774 - PHQ-9 Billing: Yes Source: Developed by Drs. Taj Willson, Elaine Tsai, Dyllan Singh and colleagues, with an educational cory from [employer]. Thrive Questionnaire Date Thrive assessed: 05/16/24 I am a: Patient What is your living situation today?: I have a steady place to live Within the past 12 months, did the food you bought not last and you didn't have the money to get more?: Never true Within the past 12 months, did you worry whether your food would run out before you got money to buy more?: Never true Do you have trouble paying for medicines?: No Do you have trouble getting transportation to medical appointments?: No Do you have trouble paying your heating and electricity bill?: No Do you have trouble taking care of your child, family member or friend?: No Do you have trouble with day-to-day activities such as bathing, preparing meals, shopping, managing finances, etc.?: No Are you currently unemployed and looking for a job?: No Are you interested in more education?: No Please select the resources that you would like help with: None Currently or been in a relationship where the following occur: No concerns reported THRIVE Score: 0 AUDIT C Alcohol Use Questionnaire (AUDIT-C) 1. How often do you have a drink containing alcohol?: Never 3. How often do you have six or more drinks on one occasion?: Never Total Score: 0 Score Reviewed/Action Taken: Yes LELE-7 AMB Questionnaire LELE-7 Date LELE - 7 assessed: 05/16/24 Feeling nervous, anxious, or on edge: 0 = Not at all Not being able to stop or control worryin = Not at all Worrying too much about different things: 0 = Not at all Trouble relaxin = Not at all Being so restless that it is hard to sit still: 0 = Not at all Becoming easily annoyed or irritable: 0 = Not at all Feeling afraid as if something awful might happen: 0 = Not at all Total LELE-7 score (0-4 normal; 5-9 mild; 10-14 moderate; 15-21 severe): 0 Source: Developed by Drs. Taj Willson, Elaine Tsai, Dyllan Singh and colleagues, with an educational cory from [employer]. Review of Systems Const Denies chills, Reports fatigue, Denies fever(s) and Denies headache(s) ENT Denies dysphagia, Reports dizziness (on and off lately), Denies otalgia, Denies headache(s), Reports neck pain (chronic), Denies odynophagia and Denies sore throat Card Denies chest pain, Denies rapid heart rate, Denies palpitations and Reports dyspnea on exertion (mild) Resp Denies chest congestion, Denies cough and Reports dyspnea on exertion (mild) GI Denies abdominal pain, Denies constipation, Denies dysphagia, Denies heartburn, Denies diarrhea, Denies nausea, Denies odynophagia and Denies vomiting Denies difficulty voiding, Denies nocturia, Denies dysuria and Denies urinary urgency Musc Details: (+) pain over her entire right side, from the neck and shoulder down to the leg Denies back pain, Reports arthralgias (involving both shoulders, right elbow, arm and leg; R knee), Denies joint swelling, Reports neck pain (chronic) and Reports numbness (on and off, over the fingers of the right hand) Skin/Breast Denies rash Neuro Details: (+) recurrent, involuntary movements involving primarily the right side of the face and right arm/hand but these appear much better controlled/less prominent currently Reports dizziness (on and off lately), Denies headache(s) and Reports numbness (on and off, over the fingers of the right hand) Psych Reports anxiety (better controlled) and Reports depression (better controlled) Endo Reports fatigue and Denies palpitations Physical exam (Primary Care) Vital Signs: Last Vital Signs Pulse 104 H 05/16/24 15:55 BP 160/90 H 05/16/24 16:38 Pulse Ox 95 05/16/24 15:55 Oxygen Delivery Method Room Air 05/16/24 15:55 Tobacco/Smoking Status: Tobacco use Status Tobacco use date assessed 05/16/24 05/16/24 16:00 Patient Tobacco Use Status Never used Tobacco 05/16/24 16:00 e-Cigarette/Vaping Use Never Used 05/16/24 16:00 PHQ-9: PHQ-9 Score PHQ-9: Total score 0 05/16/24 16:40 Depression Screening Interpretation: Negative Thrive Assessment: Date of Thrive Assessment Date Thrive assessed 05/16/24 05/16/24 16:00 Currently or been in a relationship where the following occur: No concerns reported Const General: no acute distress and alert HENMT Ears: TM's normal bilaterally and EAC's normal Throat: Yes posterior oropharynx normal and Yes tonsils normal (no TP congestion noted) Neck Neck: Yes no lymphadenopathy, Yes supple and Yes tender (over the cervical spine on exam) Thyroid: Thyroid normal Resp Auscultation: clear to auscultation bilaterally, no rales and no wheezes Cardio Rate: regular rate Rhythm: regular rhythm Heart sounds: no murmurs GI Palpation (GI): Soft to palpation and nontender Auscultation: normal bowel sounds Back/Spine/Pelvis Cervical Spine: cervical muscular tenderness (bilateral) and Cervical spine tenderness Thoracic/Lumbar Spine: paraspinal muscle tenderness bilaterally in the upper thoracic and lumbar spinal tenderness Skin Rashes: no rashes Neuro Other: right hemiparesis Cognition (Neuro): normal cognition Gait exam (Neuro): Antalgic gait present and Assistive device used (cane) Motor exam (neuro): Motor abnormalites present dystonia (involving mainly the right side of the face and the right arm) Extrem General: No clubbing, No cyanosis and Yes edema (1+ bipedal edema) Right upper extremity: shoulder/upper arm Details: tenderness Location: of the A-C joint; no swelling, elbow/forearm Details: tenderness Location: of the olecranon and of the lateral epicondyle and wrist Details: tenderness Location: of the volar wrist (on deep palpation) Right lower extremity: knee Details: tenderness and swelling (mild) Left lower extremity: knee Details: tenderness, swelling (mild) and crepitus Results AMB Hemoglobin A1c AMB Hemoglobin A1c 13.1 % Last Edit by ADRIENNE Peña on 05/16/24 16:39 Results Reviewed Results Reviewed: Laboratory Last Values Hgb A1c (Clinic) 13.1 % (4.0-6.0) H 05/16/24 16:37 Coding Level of Care Code Est Pt Level 4 (23287) Complex EM visit Add On G2211 Diagnoses Cerebrovascular accident (CVA), unspecified mechanism I63.9 CVA mechanism: unspecified Hemiparesis affecting right side as late effect of cerebrovascular accident (CVA) I69.351 Dystonia G24.9 Pure hypercholesterolemia E78.00 Type 2 diabetes mellitus with hyperglycemia, without long-term current use of insulin E11.65 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 complication status: with hyperglycemia 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 senior care insulin use: without lumber puller use 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 type: type 2 Benign essential hypertension I10 Personal history of pulmonary embolism Z86.711 Fibromyalgia M79.7 Bilateral primary osteoarthritis of knee M17.0 Primary osteoarthritis, right shoulder M19.011 Carpal tunnel syndrome, bilateral G56.03 Moderate persistent asthma without complication J45.40 Asthma complication type: uncomplicated Asthma persistence: persistent Asthma severity: moderate GERD without esophagitis K21.9 Vitamin B12 deficiency E53.8 Vitamin D deficiency E55.9 Obesity (BMI 30-39.9) E66.9 Additional Codes PHQ-9 - 01019 - PHQ-9 Billing: Yes ([id number]) Assessment & Plan Assessment & Plan (1) CVA (cerebral vascular accident): Code(s): I63.9 - Cerebral infarction, unspecified Category: Medical Qualifiers: CVA mechanism: unspecified Qualified Code(s): I63.9 - Cerebral infarction, unspecified Plan: S/P CVA in May 2022; new CVA in May 2023 - repeat brain MRI revealed (+) new small acute white matter infarct within the deep white matter of the left frontal lobe Continue Aspirin 81 mg QD, Clopidogrel 75 mg QD and high dose statins Follow up with neurology (Dr. Boo) as scheduled (2) Hemiparesis affecting right side as late effect of cerebrovascular accident (CVA): Code(s): I69.351 - Hemiplegia and hemiparesis following cerebral infarction affecting right dominant side Category: Medical Plan: S/P PT and OT at [facility] last year (was discharged from there on 06/10/2023), followed by home PT for a while She was referred back to PT last year as she felt that her mobility has declined due to a perceived increase in her right-sided dystonic movements Will refer her back to physical therapy on an as-needed basis at this time (3) Dystonia: Code(s): G24.9 - Dystonia, unspecified Category: Medical Plan: This is likely a sequelae of her previous CVA in May 2022 Continue Chlorpromazine 50 mg TID Follow up with neurology as scheduled (4) Pure hypercholesterolemia: Code(s): E78.00 - Pure hypercholesterolemia, unspecified Category: Medical Plan: Patient was again not able to get her follow up labs done prior to her appointment today Her fasting lipids last checked in July 2023 were still high, with total cholesterol at 222 mg/dl and LDL at 141 mg/dl She was previously on Rosuvastatin 40 mg QD and Ezetimibe 10 mg QD but since her hospital admission last year, her Rx was changed to Atorvastatin 40 mg QD alone Reinforced low cholesterol diet Will have her recheck her labs and fasting lipids in 1 month for follow up and we have emphasized to her daughter today that these need to be done without fail and will have to help her mother ensure this as patient has not been very compliant at all with her medical care over the past couple of years - not sure if this is just due to her own personal choice or she may have some cognitive impairment or impairment of executive functioning at this time that is affecting her judgment They have been advised that if her cholesterol numbers have not improved significantly with her current Rx when her labs are done next month, then we may need to consider starting her on one of the newer PCSK9 inhibitors for better efficacy (5) 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: Code(s): E11.9 - Type 2 diabetes mellitus without complications Category: Medical Qualifiers: 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 complication status: with hyperglycemia 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 senior care insulin use: without senior care use 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 type: type 2 Qualified Code(s): E11.65 - Type 2 diabetes mellitus with hyperglycemia Plan: Patient's in-office HgbA1c today is at 13.1% (her HgbA1c was at 7.3% when previously checked on 10/29/2023) - goal is at least <7.0% Reinforced diabetic diet - patient admits to poor compliance with her diet over the recent holiday season Continue Metformin ER 1000 mg BID, Lantus 30 units Q HS, Trulicity 1.5 mg once a week and Humalog 4 units with meals and at bedtime per sliding scale for now Follow up with endocrinology as scheduled (6) Benign essential hypertension: Code(s): I10 - Essential (primary) hypertension Category: Medical Plan: Reinforced low-sodium diet - goal is systolic BP of at least 120-130 mm or less Continue Losartan 100 mg QD and Carvedilol 25 mg BID for now she is flying out to [place] tomorrow and it would not be a good idea to adjust her medications if she will be out of the country and unable to check back in for any unexpected symptoms or side effects He will have her return in a month when she returns from her overseas trip to address this further (7) Personal history of pulmonary embolism: Code(s): Z86.711 - Personal history of pulmonary embolism Category: Medical Plan: She was taken off Coumadin and switched over to Apixaban 2.5 mg BID by hematology last year as patient has not had any recurrence of her embolism for years This was discontinued and patient was started instead on Clopidogrel 75 mg QD after her recent CVA Follow up with hematology/oncology as scheduled (8) Fibromyalgia: Code(s): M79.7 - Fibromyalgia Category: Medical Plan: Follow up with Rheumatology as scheduled Patient again encouraged on regular exercise and physical activity to help manage her symptoms Continue Gabapentin 400 mg 3 times a day (9) Bilateral primary osteoarthritis of knee: Comment: X-rays of the knees done back on 03/15/2016 showed severe tricompartmental arthritis in both knees Symptoms have improved with cortisone injections from Orthopedics as needed Code(s): M17.0 - Bilateral primary osteoarthritis of knee Category: Medical Plan: Patient currently remains very limited with her activity and mobility due to her knee osteoarthritis and her CVA She is advised that her right leg pain is most likely related to her knee OA; she had cortisone injections into her knees from [facility] last year and she felt that the injections were the trigger(s) of most of her symptoms of dystonia (and not her CVA) Repeat x-rays of the right knee in April 2023 revealed (+) tricompartment osteoarthritic change of the right knee, most pronounced in the lateral joint space compartment, where degenerative change is severe Follow up with orthopedics ([facility]) as scheduled (10) Primary osteoarthritis, right shoulder: Code(s): M19.011 - Primary osteoarthritis, right shoulder Category: Medical Plan: Right shoulder x-rays done a couple of years ago revealed some findings of AC arthritis in the joint Her shoulder symptoms have since improved with physical therapy Continue Tramadol 50 mg TID PRN for pain (11) Carpal tunnel syndrome, bilateral: Code(s): G56.03 - Carpal tunnel syndrome, bilateral upper limbs Category: Medical Plan: EMG and NCV done back in 2014 revealed (+) moderate carpal tunnel syndrome on the right and mild carpal tunnel syndrome on the left side; EMG was normal She has been advised that she will need repeat NCV & EMG if she feels that her right hand symptoms are getting worse and if repeat NCV confirms progression and severity of her CTS, will need to consider referral to orthopedics for median nerve release She would not be able to get her EMG and NCV done at this time due to her recurrent dystonic movements (12) Asthma: Code(s): J45.909 - Unspecified asthma, uncomplicated Category: Medical Qualifiers: Asthma complication type: uncomplicated Asthma persistence: persistent Asthma severity: moderate Qualified Code(s): J45.40 - Moderate persistent asthma, uncomplicated Plan: Stable currently Continue Symbicort 160-4.5 mcg 2 inhalations BID, ,Montelukast 10 mg QD and Ventolin HFA 2 inhalations every 6 hours PRN (13) GERD without esophagitis: Comment: Barium swallow done a couple of years ago showed (+) hiatal hernia with (+) significant acid reflux Code(s): K21.9 - Gastro-esophageal reflux disease without esophagitis Category: Medical Plan: Dietary restrictions reinforced Her previous Omeprazole was changed to Lansoprazole 15 mg QD due to potential interactions of Omeprazole with Clopidogrel (14) Vitamin B12 deficiency: Code(s): E53.8 - Deficiency of other specified B group vitamins Category: Medical Plan: Continue Vitamin B12 injections 1000 mcg once a month and oral Vitamin B12 tablets 1000 mcg tablets once a day (15) Vitamin D deficiency: Code(s): E55.9 - Vitamin D deficiency, unspecified Category: Medical Plan: Continue Vitamin D2 67244 units once a week (added by endocrinology) and Vitamin D3 2000 units daily (16) Obesity (BMI 30-39.9): Code(s): E66.9 - Obesity, unspecified Category: Medical Plan: Reinforced diet; exercise and weight loss are unrealistic given patient's comorbidities and recent issues with her CVA and right-sided dystonic movements Plan Follow up in 1 month Orders: Orders AMB Hemoglobin A1c 05/16/24 Z13.9 - Encounter for screening, unspecified Complete Blood Count Auto Diff 1 Month D64.9 - Anemia, unspecified Comprehensive [place]. Panel Fast 1 Month E78.00 - Pure hypercholesterolemia, unspecified Hemoglobin A1c 1 Month E11.9 - Type 2 diabetes mellitus without complications Vitamin D 25-OH Total 1 Month E55.9 - Vitamin D deficiency, unspecified Lipid Panel 1 Month E78.00 - Pure hypercholesterolemia, unspecified TSH reflex Free T4 1 Month E78.00 - Pure hypercholesterolemia, unspecified UA CC w/rflx Micro + Cult 1 Month R30.0 - Dysuria
[2024-05-16 15:55] VITALS: BP 158/90; PULSE 104; O2SAT 95
[2024-05-16 16:38] VITALS: BP 160/90
== END 2024-05-16 16:51 | disposition home or self-care (01) ==
PROVIDERS: PCP Internal Medicine; Visit Provider Internal Medicine
DX: Z13.9 Encounter for screening, unspecified (principal)

== ENCOUNTER → 2024-05-16 15:45 | Outpatient (BNVA) | payer MEDICARE, SELFPAY | PROVIDERS: PCP Internal Medicine; Visit Provider Internal Medicine | DX: I63.9 Cerebral infarction, unspecified (principal); G24.9 Dystonia, unspecified; E78.00 Pure hypercholesterolemia, unspecified; E11.65 Type 2 diabetes mellitus with hyperglycemia; I10 Essential (primary) hypertension; M79.7 Fibromyalgia; M17.0 Bilateral primary osteoarthritis of knee; M19.011 Primary osteoarthritis, right shoulder; J45.40 Moderate persistent asthma, uncomplicated; E53.8 Deficiency of other specified B group vitamins; K21.9 Gastro-esophageal reflux disease without esophagitis; E55.9 Vitamin D deficiency, unspecified; E66.9 Obesity, unspecified; Z86.711 Personal history of pulmonary embolism | CPT/HCPCS: 83036; 96127; 99212 ==

== ENCOUNTER 2024-06-02 14:40 | Outpatient (AMB) | payer MEDICARE, MEDICAID, SELFPAY ==
--- NOTE | 2024-06-02 11:31 | MHC.OFFVIS ---
Vital Signs 06/02/24 14:44 Height 5 ft 7 in BMI Reason not done Patient refused/unable BP 148/80 H Blood Pressure Location Rt brachial Position Sitting Pulse 96 Pulse Source Pulse Oximeter Pulse Oximetry (%) 97 Oxygen Delivery Method Room Air Intake Visit Reasons: T2DM Intake Note: Patient presents today for a follow-up on Type 2 Diabetes Mellitus: Last Diabetic eye exam was on: DUE Last Podiatry exam was on: Does not see a Sharepoint Solutions Developer Most recent HbA1c: 13.1%, 05/16/2024 Random Glucose- 219 mg/dL, Today Meter Readers Supervisor Required: Yes Meter Readers Supervisor Language: Farm [employer] Member Services: Meter Readers Supervisor Offered & Declined Meter Readers Supervisor Name: DAUGHTER Accompanied by: Self / Same As Patient Allergies Penicillins [PENICILLINS] Allergy (Severe, Verified 05/16/24 16:36) SOB, rash, itching codeine [CODEINE] Allergy (Intermediate, Verified 05/16/24 16:36) RASH SOB oxycodone [From PERCOCET] Allergy (Intermediate, Verified 05/16/24 16:36) RASH SOB kiwi [KIWI] Allergy (Mild, Verified 05/16/24 16:36) ITCHY IF TOUCHES pineapple [PINEAPPLE] Allergy (Mild, Verified 05/16/24 16:36) ITCHY IF TOUCHES metformin Adverse Reaction (Intermediate, Verified 05/16/24 16:36) dizziness, blurred vision HPI Comments Details: 68 YO F with PMHx T2DM who is seen in F/U for T2DM. The patient last saw 12/24/23 at which time bolus insulin and Trulicity were increased. Hemoglobin A1c 06/02/2024 13 %, 10/29/2023 7.3. She was in [place] several weeks ago without her insulin. Glucose readings were in the 700. She did go to the ER in [place] and her NovoLog insulin was increased. Her daughter is concerned that she may have had a stroke at the time and did have some difficulty with speech temporarily when her glucose was high. she has an upcoming appointment with her PCP Initially diagnosed with T2DM in 2001. Previous medications: Metformin and Jardiance which were both stopped secondary to side effects Current meds: Lantus 30 units Novolog 10 units tid before meals Trulicity 1.5mg weekly freestyle sensor: 224 average overnight 12am to 6am 170's, 194 fasting 293 12noon mid 200's throughout the day Treats lows with juice. Checks sugar after to ensure it is rising. Treats according to rule of 15's. Family history of T2DM in her Mother and Sister. Has retinopathy Last eye exam 11/2023 Has neuropathy. Symptoms reported: Numbness, tingling, no pain or cramping does not see podiatry Has nephropathy, on Losartan 100 mg PO daily. 10/29/2023 microalbumin 16.0 11/13/2023 eGFR>60 Has HLD, on Atorvastatin 40 mg PO daily and Zetia 10 mg PO daily. Denies CAD. [facility] [place] Medical History Primary osteoarthritis, right shoulder CVA (cerebral vascular accident) Bleeding hemorrhoids Carpal tunnel syndrome, bilateral Internal and external hemorrhoids without complication Diverticulosis Rectal bleed Varicose veins of both lower extremities with pain Hx pulmonary embolism Rectal bleeding Obesity (BMI 30-39.9) Overactive bladder Migraine GERD without esophagitis Allergic rhinitis Fibromyalgia Vitamin B12 deficiency Asthma Bilateral primary osteoarthritis of knee Pure hypercholesterolemia Benign essential hypertension Bilateral lower extremity edema Mammogram abnormal Intertrigo Breast nodule Goiter Vitamin D deficiency HLD (hyperlipidemia) T2DM (type 2 diabetes mellitus) Arthritis Breast pain, right Calcific tendinitis of right hip Right lumbar radiculopathy Right hip pain Low back pain Surgical History Hx of breast surgery History of colonoscopy History of mammogram History of incision and drainage Hx of cataract extraction Hx of cholecystectomy Hx of tubal ligation Hx of eye surgery History of tonsillectomy and adenoidectomy Family History Father Hypertension Myocardial infarction Stroke Mother Hypertension Diabetes Social History Household Members: Spouse, Family and Children Housing: House Are you a primary child care development specialist to a significant other at home: No Do you presently have visiting nurse or other home services: No Alcohol intake: never Patient Tobacco Use Status: Never used Tobacco e-Cigarette/Vaping Use: Never Used Second Hand Smoke Exposure: No service: No Current occupational status: disabled Cognitive needs: No Hearing needs: No Vision needs: Yes Physical Exam Vital Signs: Last Vital Signs Pulse 96 06/02/24 14:44 BP 148/80 H 06/02/24 14:44 Pulse Ox 97 06/02/24 14:44 Oxygen Delivery Method Room Air 06/02/24 14:44 Const Other: Absence of Cushingoid features. Absence of acromegalic features. Neck exam reveals nl size thyroid about 15 gms. No thyroid nodules palpable. Heart S1 S2, Reg R/R. systolic murmur, no R G. Skin exam reveals absence of vitiligo or acanthosis nigricans. No edema. utilizes walker for ambulation. some involuntary right arm movements (baseline per daughter) Visual exam of foot performed. No ulcerations or open lesions. No inter digit maceration or fissuring. No onychomycosis, no callouses. Sensation intact to monofilament exam. Vibratory sensation is normal with 128 Hz tuning fork. good cap refil Results Reviewed Results Reviewed: Laboratory Last Values Glucose (Clinic) 219 mg/dL (60-115) H 06/02/24 14:45 Assessment & Plan Assessment & Plan (1) T2DM (type 2 diabetes mellitus): Code(s): E11.9 - Type 2 diabetes mellitus without complications Category: Medical Plan: This is a 68-year-old female with a history of type 2 diabetes being treated with metformin and basal-bolus insulin with poor glycemic control and known microvascular and macrovascular complications namely neuropathy, CKD and CVA. She was hospitalized several weeks ago in [place] with glucose readings in the 600s. freestyle average is now 223. new dosing: Lantus 32 units NovoLog 12 units before meals continue Trulicity 1.5 weekly Will start low-dose pioglitazone 15mg as this has been shown to decrease chances of additional stroke. side effects which typically occur at higher dose were reviewed with patient and daughter. will keep it low dose She reports being diagnosed approximately 20 years ago and has been on Lantus almost since the time of diagnosis. will check labs for Brianda. The patient had an opportunity to ask questions regarding treatment plan. The patient expressed understanding and agreement with the above treatment plan. The patient is aware they should contact our office by phone for worsening glucose readings or for any low blood sugars which may warrant a change in diabetes medication. Compliance is encouraged with medications and any followup testing/consults which may have been ordered. Orders: Orders Islet Cell Antibody Scrn/Titer Today E11.9 - Type 2 diabetes mellitus without complications Glutamic acid decarboxylase Ab Today E11.9 - Type 2 diabetes mellitus without complications C Peptide Today E11.9 - Type 2 diabetes mellitus without complications Medications: New pioglitazone 15 mg PO DAILY 30 days 30 tabs 2RF blood-glucose sensor (FreeStyle Carol 3 Plus Sensor device) As directed every 15 days 2 ea 11RF Changed From insulin glargine (Lantus Solostar U-100 Insulin) 30 units (0.3 mL) subcut QPM 30 days 9 mL 3RF To insulin glargine (Lantus Solostar U-100 Insulin) 32 units (0.32 mL) subcut QPM 30 days 12 mL 3RF Discontinued flash glucose scanning reader (FreeStyle Carol 2 [place]) Discontinued Reason: No Longer Medically Relevant As directed 1 ea 5RF E11.9 - Type 2 diabetes mellitus without complications flash glucose sensor (FreeStyle Carol 2 Sensor kit) Discontinued Reason: Doctor's Order As directed change every 14 days 2 ea 5RF E11.9 - Type 2 diabetes mellitus without complications Patient Instructions: plate method given and reviewed. The patient was counseled to achieve a target A1C of 7% (154 avg). Fasting blood sugars should be 90-130 in the morning and less than 180 two hours after meals. Reviewed the relationship between poor diabetic control and the development of complications. Take 15 carb carbohydrate grams to treat a low sugar (3-4 glucose tablets, half a glass of juice or 15 carbohydrate grams of soft candy such as gummie snacks). Recheck your sugar in 15 minutes and re-treat again with 15 carbohydrate grams if low or still with symptoms. Do not drive a car or operate machinery if you do not know what your blood sugar is, if it is low or in excess of 300. Check your feet daily looking for any signs of infection, drainage, redness, ulceration and seek medical attention if this occurs. Break in shoes gradually and do not wear open-toed shoes or walk stocking footed or barefooted. Sick day management reviewed. Coding Level of Care Code Est Pt Level 5 (99838) Complex EM visit Add On G2211 Diagnoses T2DM (type 2 diabetes mellitus) E11.9 Time Spent (min) 45 Comment Time spent reviewing labs/provider notes, face to face, chart doc
[2024-06-02 14:44] VITALS: BP 148/80; PULSE 96; O2SAT 97
[2024-06-02 14:49] LABS: Glucose, Whole Blood 219 mg/dL (60-115)
== END 2024-06-02 15:25 | disposition home or self-care (01) ==
LOC: HO.ENCR 14:41
PROVIDERS: PCP Internal Medicine; Visit Provider Nurse Practitioner Adult Health
DX: E11.9 Type 2 diabetes mellitus without complications (principal)
CPT/HCPCS: 99215; G2211

== ENCOUNTER → 2024-06-02 14:40 | Outpatient (BNVA) | payer MEDICARE, MEDICAID, SELFPAY | PROVIDERS: PCP Internal Medicine; Visit Provider Nurse Practitioner Adult Health | DX: E11.319 Type 2 diabetes mellitus with unspecified diabetic retinopathy without macular edema (principal); E11.40 Type 2 diabetes mellitus with diabetic neuropathy, unspecified; E11.21 Type 2 diabetes mellitus with diabetic nephropathy; E78.5 Hyperlipidemia, unspecified; Z79.4 Long term (current) use of insulin; Z79.899 Other long term (current) drug therapy | CPT/HCPCS: 82947; 99212 ==

== ENCOUNTER 2024-06-13 15:52 | Outpatient (AMB) | payer MEDICARE, SELFPAY ==
--- NOTE | 2024-06-13 16:02 | A.OFFPC_ITS ---
Vital Signs 06/13/24 16:03 Height 5 ft 7 in Weight 193 lb 4 oz BMI 30.3 BP 140/70 H Blood Pressure Location Lt brachial Position Sitting Pulse 87 Pulse Source Pulse Oximeter Temp 96.4 F L Temp Source Temporal Artery Scan Pulse Oximetry (%) 96 Oxygen Delivery Method Room Air Intake Visit Reasons: uncontrolled DM, hyperlipidemia, HTN Intake Note: Patient is here to follow up on Uncontrolled DM, HLD, HTN. Nozzleman Required: No Acid Concentrator: Present Accompanied by: Daughter Allergies Penicillins [PENICILLINS] Allergy (Severe, Verified 06/13/24 16:12) SOB, rash, itching codeine [CODEINE] Allergy (Intermediate, Verified 06/13/24 16:12) RASH SOB oxycodone [From PERCOCET] Allergy (Intermediate, Verified 06/13/24 16:12) RASH SOB kiwi [KIWI] Allergy (Mild, Verified 06/13/24 16:12) ITCHY IF TOUCHES pineapple [PINEAPPLE] Allergy (Mild, Verified 06/13/24 16:12) ITCHY IF TOUCHES metformin Adverse Reaction (Intermediate, Verified 06/13/24 16:12) dizziness, blurred vision Medication List - Last Reconciled 06/13/24 by BECKY Amezcua albuterol sulfate 2.5 mg (3 mL) continuous nebulization Q4-6H PRN ascorbate calcium (vitamin C) 500 mg PO DAILY 90 days aspirin (Adult Aspirin Regimen) 81 mg PO DAILY 90 days atorvastatin 80 mg PO DAILY blood sugar diagnostic (OneTouch Ultra Test strips) 5 times per day blood sugar diagnostic (FreeStyle Lite Strips) As directed to test blood sugar three times a day blood-glucose meter (FreeStyle [place] Lite kit) As directed blood-glucose meter (OneTouch Ultra2 Meter kit) As directed 3x/day blood-glucose sensor (FreeStyle Carol 3 Plus Sensor device) As directed every 15 days carvedilol (Coreg) 25 mg PO BID 90 days chlorpromazine 50 mg PO TID cholecalciferol (vitamin D3) 5,000 units PO DAILY 90 days clopidogrel 75 mg PO DAILY 90 days [compression stockings Use daily as directed as needed, strength - medium; length - knee high ] cyanocobalamin (vitamin B-12) 1,000 mcg PO DAILY 90 days dulaglutide (Trulicity) 1.5 mg (0.5 mL) subcut QWEEK ferrous sulfate 325 mg PO BID folic acid 1 mg PO DAILY 90 days gabapentin 400 mg PO TID 30 days glucagon (Gvoke HypoPen 1-Pack) 1 mg (0.2 mL) subcut ONCE insulin glargine (Lantus Solostar U-100 Insulin) 32 units (0.32 mL) subcut QPM 30 days lancets 5 times per day lancets (FreeStyle Lancets) As directed test blood sugar three times a day lansoprazole 15 mg PO DAILY [LIGHTWEIGHT STANDARD WHEELCHAIR As directed] [LIGHTWEIGHT WHEELCHAIR As directed] losartan 100 mg PO DAILY 90 days Novolog FlexPen U-100 Insulin (insulin aspart U-100) 4 units See Protocol subcut TIDWMEAL NS pen needle, diabetic (BD Nella 2nd Gen Pen Needle) test 5 times per day pen needle, diabetic (BD Ultra-Fine Micro Pen Needle) 5 times a day as directed - Lantus QD and Humalog QID pioglitazone 15 mg PO DAILY 30 days [ROLLATOR As directed] tramadol 50 mg PO TID PRN 30 days [Transport wheel chair As directed] Ventolin HFA 90 mcg/actuation (albuterol sulfate) 2 puffs inhalation Q4-6H PRN NS [WALKER LEG RUBBER TIPS As directed] Tobacco use date assessed: 06/13/24 Fall risk assessment: No Falls in past year Last assessed Fall Risk: 06/13/24 Dental Screening Dental Screen Date: 05/16/24 HPI uncontrolled DM, hyperlipidemia, HTN HPI Details The patient is a 68 year old female who is presenting with her daughter. Patient of [facility]: DM, remote stroke in May 2022 with residual mild right hemiparesis, dystonia, movement disorder, PMR, HTN, history of PE no longer on AC, b12 deficiency, mild intermittent asthma, hyperlipidemia, sustained another stroke in 2023 Patient is presenting today for follow up of her chronic conditions Patient did not get blood work done-she has some labs available from different specialties that were reviewed for her and daughter The patient reports that few weeks ago, she was in [place] and the forgot he insulin and was without insulin for over a week Reports that she started slurring her word and was noted to be off from her bas good Her blood pressure was checked and the meter resulted with the word Hi instead of a number She was brought to the ER in [place] and had to be admitted because her blood sugar was in the 700s Reports that every since that happens the tremors in her right arm have increased. Reports that she gets tired easily. Reports that she would of her [facility] to see if she had another stroke. The reports that she gets chest pain every day on random intermittently. The patient pointed to the right side of her chest, just below the right shoulder-reports that this pain is in her right shoulder as well She described the pain as tightness. She denies any other symptoms-nausea, diaphoresis, dizziness or lightheadedness during these episodes Reports that she does feel dizziness or lightheaded on and off when her blood sugars are out of control Soft systolic murmur heard on auscultation. The patient reports that she is going to get pre-scheduled labs done tomorrow-will add an ekg as well to further evaluate The patient was seen by endocrine on 06/02/24 A1C was 13% on 10/29/23 it was 7.3%. The patient is concern that she might have had an stroke in [place]-causing her to have the increased tremors in the right arm The patient is presenting with HG&E paperwork to be filled out [facility] Medical History Primary osteoarthritis, right shoulder CVA (cerebral vascular accident) Bleeding hemorrhoids Carpal tunnel syndrome, bilateral Internal and external hemorrhoids without complication Diverticulosis Rectal bleed Varicose veins of both lower extremities with pain Hx pulmonary embolism Rectal bleeding Obesity (BMI 30-39.9) Overactive bladder Migraine GERD without esophagitis Allergic rhinitis Fibromyalgia Vitamin B12 deficiency Asthma Bilateral primary osteoarthritis of knee Pure hypercholesterolemia Benign essential hypertension Bilateral lower extremity edema Mammogram abnormal Intertrigo Breast nodule Goiter Vitamin D deficiency HLD (hyperlipidemia) T2DM (type 2 diabetes mellitus) Arthritis Breast pain, right Calcific tendinitis of right hip Right lumbar radiculopathy Right hip pain Low back pain Surgical History Hx of breast surgery History of colonoscopy History of mammogram History of incision and drainage Hx of cataract extraction Hx of cholecystectomy Hx of tubal ligation Hx of eye surgery History of tonsillectomy and adenoidectomy Family History Father Hypertension Myocardial infarction Stroke Mother Hypertension Diabetes Social History Household Members: Spouse, Family and Children Housing: House Are you a primary critical care rn to a significant other at home: No Do you presently have visiting nurse or other home services: No Alcohol intake: never Patient Tobacco Use Status: Never used Tobacco e-Cigarette/Vaping Use: Never Used Second Hand Smoke Exposure: No service: No Current occupational status: disabled Cognitive needs: No Hearing needs: No Vision needs: Yes Questionnaire Thrive Questionnaire Date Thrive assessed: 05/16/24 LELE-7 AMB Questionnaire LELE-7 Date LELE - 7 assessed: 05/16/24 Source: Developed by Drs. Taj Willson, Elaine Tsai, Dyllan Singh and colleagues, with an educational cory from [employer]. Review of Systems Const Reports fatigue, Denies headache(s) and Reports weakness Eyes Denies loss of vision ENT Denies vertigo, Denies dizziness, Denies headache(s) and Denies sore throat Card Reports chest pain (right sided/pressure/right shoulder involvement-everyday intermittently), Denies leg edema and Denies lightheadedness Resp Denies cough, Denies hemoptysis and Denies wheezing GI Denies abdominal pain, Denies melena, Denies constipation, Denies diarrhea and Denies vomiting Denies urinary frequency, Denies dysuria and Denies urinary urgency Musc Reports arthralgias (bilateral knees), Denies joint swelling, Denies numbness and Denies tingling Neuro Denies Abnormal speech present, Denies behavioral changes, Denies vertigo, Denies dizziness, Denies headache(s), Reports lack of coordination (right arm), Denies loss of vision, Denies memory loss, Denies numbness, Denies tingling, Reports paresthesias (right arm), Reports tremor(s) (right arm tremors) and Reports weakness Psych Denies anxiety, Denies behavioral changes, Denies depression, Denies memory loss and Denies panic attacks Endo Reports fatigue Ruben/Lymph Denies easy bleeding and Denies easy bruising Aller/Immun Denies wheezing Physical exam (Primary Care) Vital Signs: Last Vital Signs Temp 96.4 F L 06/13/24 16:03 Pulse 87 06/13/24 16:03 BP 140/70 H 06/13/24 16:03 Pulse Ox 96 06/13/24 16:03 Oxygen Delivery Method Room Air 06/13/24 16:03 BMI result Body Mass Index 30.3 Tobacco/Smoking Status: Tobacco use Status Tobacco use date assessed 06/13/24 06/13/24 16:09 Patient Tobacco Use Status Never used Tobacco 06/13/24 16:09 e-Cigarette/Vaping Use Never Used 06/13/24 16:09 Thrive Assessment: Date of Thrive Assessment Date Thrive assessed 05/16/24 06/13/24 16:09 Const General: healthy appearing, no acute distress, alert and awake Nutritional Appearance: well nourished Orientation/consciousness: oriented to person, oriented to place and oriented to time HENMT Ears: TM's normal bilaterally General nose exam: Normal nasal mucous membranes and turbinates present Eyes Conjunctivae: conjunctivae normal Sclerae: sclerae normal Pupils: Equal, round and reactive pupils present Neck Neck: Yes no lymphadenopathy and Yes no JVD Thyroid: Thyroid normal Carotids: no bruits Resp Effort & Inspection: normal respiratory effort and not tachypneic Auscultation: no crackles, no rales, no rhonchi and no wheezes Cardio Rate: regular rate Rhythm: regular rhythm Heart sounds: Murmur heart sound present systolic Peripheral pulses: Peripheral pulses 2+ throughout GI Palpation (GI): Soft to palpation, nontender, no hepatomegaly and no splenomegaly Auscultation: normal bowel sounds General: Yes no CVA tenderness Back/Spine/Pelvis Back: no CVA tenderness Skin General skin exam: no rashes or lesions noted and dry skin Neuro General: oriented to person, oriented to place and oriented to time Cranial nerves: Yes Equal, round and reactive pupils present Speech: No Abnormal speech present Gait exam (Neuro): Normal gait present Motor exam (neuro): Tremors during motor activity present (right arm) Extrem Right upper extremity: ROM limited (passive ROM in right arm) Left upper extremity: full ROM Right lower extremity: full ROM and knee Details: tenderness; no swelling; no edema Left lower extremity: full ROM and knee Details: tenderness; no swelling; no edema Psych Mental Status: mental status grossly normal Speech and movement: Normal speech and movement present Affect: normal affect Attitude: cooperative Thought process: Normal thought process present Coding Level of Care Code Est Pt Level 4 (92028) Diagnoses Precordial pain R07.2 Chest pain type: precordial pain Type 2 diabetes mellitus with hyperglycemia, with long-term current use of insulin E11.65; Z79.4 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: with truck terminal manager use 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 complication status: with hyperglycemia Hemiparesis affecting right side as late effect of cerebrovascular accident (CVA) I69.351 Primary osteoarthritis, right shoulder M19.011 Uncontrolled hypertension I10 B12 deficiency E53.8 Obesity (BMI 30-39.9) E66.9 GERD without esophagitis K21.9 Migraine without status migrainosus, not intractable, unspecified migraine type G43.909 Intractability: not intractable Migraine type: unspecified Status migrainosus presence: without status migrainosus Fibromyalgia M79.7 Pure hypercholesterolemia E78.00 Vitamin D deficiency E55.9 Time Spent (min) 45 Assessment & Plan Assessment & Plan (1) Chest pain: Code(s): R07.9 - Chest pain, unspecified Category: Medical Qualifiers: Chest pain type: precordial pain Qualified Code(s): R07.2 - Precordial pain Plan: Right-sided chest pain, just below right clavicle, suspected referred pain due to reported right shoulder with each episode. Patient reports that she has this pain everyday intermittently. Reports that the pain is random and does not last long. Patient denies shortness of breath, heart palpitation, diaphoresis, nausea associated with this pain. Patient reports that she is going to complete her scheduled labs in the morning. EKG added to further evaluate. 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 Her A1c prior was 7.3%. Patient reports going to [place] for 3 weeks ago and forgetting to take her insulin. Reports that she was without insulin for over a week until she was noted to be altered. Her blood sugars was checked and the meter showed Hi instead of a number. She was brought to the emergency room in [place]. There they found her blood sugar to be in the 700s. The patient was held for a couple of days for observation. She reports that her right arm involuntary movements have increased significantly since this episode and she is worried that she might have sustained another stroke while she was in [place]. Patient was evaluated by Endocrine on 06/02/2024 and her regimen was adjusted accordingly. Continue Lantus 30 units subQ q.p.m., on NovoLog 4 units t.i.d. with meals and pioglitazone 15 mg daily. Monitor blood sugar regularly (3) Hemiparesis affecting right side as late effect of cerebrovascular accident (CVA): Code(s): I69.351 - Hemiplegia and hemiparesis following cerebral infarction affecting right dominant side Category: Medical Plan: Patient has a history of CVA x2. Residual of right arm dystonia-reports that the tremors in her right arm has increased since hyperglycemic episode in [place]. Patient is concerned that she might have had another stroke in [place] and is asking for a CT of the head to evaluate. Continue aspirin 81 mg daily, atorvastatin 80 mg daily, and Plavix [address] of the head without contrast ordered (4) Primary osteoarthritis, right shoulder: Code(s): M19.011 - Primary osteoarthritis, right shoulder Category: Medical Plan: Ongoing. Continue gabapentin 400 mg t.i.d and tramadol 50 mg p.o. t.i.d. p.r.n. (5) Uncontrolled hypertension: Code(s): I10 - Essential (primary) hypertension Category: Medical Plan: Patient blood pressure continue to be elevated. She is currently on losartan 100 mg daily, carvedilol 25 mg b.i.d. we will add amlodipine 5 mg daily. Encourage patient to reestablish contact with Cardiology. Reinforced low-sodium diet (6) B12 deficiency: Code(s): E53.8 - Deficiency of other specified B group vitamins Category: Medical Plan: Continue vitamin B12 a 1000 mcg daily (7) Obesity (BMI 30-39.9): Code(s): E66.9 - Obesity, unspecified Category: Medical Plan: Reinforced low cholesterol diet and activity as tolerated (8) GERD without esophagitis: Comment: Barium swallow done a couple of years ago showed (+) hiatal hernia with (+) significant acid reflux Code(s): K21.9 - Gastro-esophageal reflux disease without esophagitis Category: Medical Plan: Do not eat meals or drink carbonated beverages within 3 hr of bedtime Decrease the amount of fried, fatty, and spicy foods to decrease gastric acid production Raise the head of the bed using 4 to 6-inch blocks, especially if nocturnal symptoms are present Lose weight if indicated; avoid tight-fitting clothing, especially around the waist Avoid foods that relax the Lower esophageal sphincter (chocolate, peppermint, high-fat foods etc.,) Continue lansoprazole 15 mg daily (9) Migraine: Code(s): G43.909 - Migraine, unspecified, not intractable, without status migrainosus Category: Medical Qualifiers: Intractability: not intractable Migraine type: unspecified Status migrainosus presence: without status migrainosus Qualified Code(s): G43.909 - Migraine, unspecified, not intractable, without status migrainosus Plan: Lifestyle changes for acute onset or preventative migraine headache Consistent swelling times, at least 8 hours a night Regularly scheduled meals and between meal snacks Adequate fluid intake to prevent dehydration, especially with high intensity sports/activity Avoid triggers (bright light, loud noises, strong smells, etc.,0 Keep headache diary to try to pinpoint triggers (10) Fibromyalgia: Code(s): M79.7 - Fibromyalgia Category: Medical Plan: Patient is encouraged to stay as active as possible. Continue gabapentin 400 mg t.i.d. (11) Pure hypercholesterolemia: Code(s): E78.00 - Pure hypercholesterolemia, unspecified Category: Medical Plan: Last lipid panel 07/2023. Total cholesterol and LDL were elevated. No recent labs, patient will be getting labs in the morning. 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, E11.9 - Type 2 diabetes mellitus without complications, E53.8 - Deficiency of other specified B group vitamins, E55.9 - Vitamin D deficiency, unspecified, E66.9 - Obesity, unspecified, E78.00 - Pure hypercholesterolemia, unspecified, G43.909 - Migraine, unspecified, not intractable, without status migrainosus, I10 - Essential (primary) hypertension, I69.351 - Hemiplegia and hemiparesis following cerebral infarction affecting right dominant side, K21.9 - Gastro- esophageal reflux disease without esophagitis, M35.3 - Polymyalgia rheumatica, R20.0 - Anesthesia of skin, Z79.01 - 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 (current) use of anticoagulants, Z86.711 - Personal history of pulmonary embolism TSH reflex Free T4 3 Months 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, E11.9 - Type 2 diabetes mellitus without complications, E53.8 - Deficiency of other specified B group vitamins, E55.9 - Vitamin D deficiency, unspecified, E66.9 - Obesity, unspecified, E78.00 - Pure hypercholesterolemia, unspecified, G43.909 - Migraine, unspecified, not intractable, without status migrainosus, I10 - Essential (primary) hypertension, I69.351 - Hemiplegia and hemiparesis following cerebral infarction affecting right dominant side, K21.9 - Gastro-esophageal reflux disease without esophagitis, M35.3 - Polymyalgia rheumatica, R20.0 - Anesthesia of skin, Z79.01 - 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 (current) use of anticoagulants, Z86.711 - Personal history of pulmonary embolism UA CC w/rflx Micro + Cult 3 Months 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, E11.9 - Type 2 diabetes mellitus without complications, E53.8 - Deficiency of other specified B group vitamins, E55.9 - Vitamin D deficiency, unspecified, E66.9 - Obesity, unspecified, E78.00 - Pure hypercholesterolemia, unspecified, G43.909 - Migraine, unspecified, not intractable, without status migrainosus, I10 - Essential (primary) hypertension, I69.351 - Hemiplegia and hemiparesis following cerebral infarction affecting right dominant side, K21.9 - Gastro-esophageal reflux disease without esophagitis, M35.3 - Polymyalgia rheumatica, R20.0 - Anes thesia of skin, Z79.01 - snf (current) use of anticoagulants, Z86.711 - Personal history of pulmonary embolism Hemoglobin A1c 3 Months 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, E11.9 - Type 2 diabetes mellitus without complications, E53.8 - Deficiency of other specified B group vitamins, E55.9 - Vitamin D deficiency, unspecified, E66.9 - Obesity, unspecified, E78.00 - Pure hypercholesterolemia, unspecified, G43.909 - Migraine, unspecified, not intractable, without status migrainosus, I10 - Essential (primary) hypertension, I69.351 - Hemiplegia and hemiparesis following cerebral infarction affecting right dominant side, K21.9 - Gastro-esophageal reflux disease without esophagitis, M35.3 - Polymyalgia rheumatica, R20.0 - Anesthesia of skin, Z79.01 - snf (current) use of anticoagulants, Z86.711 - Personal history of pulmonary embolism Vitamin B12 and Folate 3 Months 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, E11.9 - Type 2 diabetes mellitus without complications, E53.8 - Deficiency of other specified B group vitamins, E55.9 - Vitamin D deficiency, unspecified, E66.9 - Obesity, unspecified, E78.00 - Pure hypercholesterolemia, unspecified, G43.909 - Migraine, unspecified, not intractable, without status migrainosus, I10 - Essential (primary) hypertension, I69.351 - Hemiplegia and hemiparesis following cerebral infarction affecting right dominant side, K21.9 - Gastro-esophageal reflux disease without esophagitis, M35.3 - Polymyalgia rheumatica, R20.0 - Anesthesia of skin, Z79.01 - snf (current) use of anticoagulants, Z86.711 - Personal history of pulmonary embolism ECG 12 lead EKG 06/13/24 I10 - Essential (primary) hypertension, R07.9 - Chest pain, unspecified CT head/brain wo IV con 06/13/24 I69.351 - Hemiplegia and hemiparesis following cerebral infarction affecting right dominant side Comprehensive [place]. 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, E11.9 - Type 2 diabetes mellitus without complications, E53.8 - Deficiency of other specified B group vitamins, E55.9 - Vitamin D deficiency, unspecified, E66.9 - Obesity, unspecified, E78.00 - Pure hypercholesterolemia, unspecified, G43.909 - Migraine, unspecified, not intractable, without status migrainosus, I10 - Essential (primary) hypertension, I69.351 - Hemiplegia and hemiparesis following cerebral infarction affecting right dominant side, K21.9 - Gastro- esophageal reflux disease without esophagitis, M35.3 - Polymyalgia rheumatica, R20.0 - Anesthesia of skin, Z79.01 - snf (current) use of anticoagulants, Z86.711 - Personal history of pulmonary embolism Vitamin D 25-OH Total 3 Months 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, E11.9 - Type 2 diabetes mellitus without complications, E53.8 - Deficiency of other specified B group vitamins, E55.9 - Vitamin D deficiency, unspecified, E66.9 - Obesity, unspecified, E78.00 - Pure hypercholesterolemia, unspecified, G43.909 - Migraine, unspecified, not intractable, without status migrainosus, I10 - Essential (primary) hypertension, I69.351 - Hemiplegia and hemiparesis following cerebral infarction affecting right dominant side, K21.9 - Gastro-esophageal reflux disease without esophagitis, M35.3 - Polymyalgia rheumatica, R20.0 - Anesthesia of skin, Z79.01 - 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 (current) use of anticoagulants, Z86.711 - Personal history of pulmonary embolism Lipid Panel 3 Months 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, E11.9 - Type 2 diabetes mellitus without complications, E53.8 - Deficiency of other specified B group vitamins, E55.9 - Vitamin D deficiency, unspecified, E66.9 - Obesity, unspecified, E78.00 - Pure hypercholesterolemia, unspecified, G43.909 - Migraine, unspecified, not intractable, without status migrainosus, I10 - Essential (primary) hypertension, I69.351 - Hemiplegia and hemiparesis following cerebral infarction affecting right dominant side, K21.9 - Gastro-esophageal reflux disease without esophagitis, M35.3 - Polymyalgia rheumatica, R20.0 - Anesthesia of skin, Z79.01 - 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 (current) use of anticoagulants, Z86.711 - Personal history of pulmonary embolism Glucose Fasting 3 Months 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, E11.9 - Type 2 diabetes mellitus without complications, E53.8 - Deficiency of other specified B group vitamins, E55.9 - Vitamin D deficiency, unspecified, E66.9 - Obesity, unspecified, E78.00 - Pure hypercholesterolemia, unspecified, G43.909 - Migraine, unspecified, not intractable, without status migrainosus, I10 - Essential (primary) hypertension, I69.351 - Hemiplegia and hemiparesis following cerebral infarction affecting right dominant side, K21.9 - Gastro-esophageal reflux disease without esophagitis, M35.3 - Polymyalgia rheumatica, R20.0 - Anesthesia of skin, Z79.01 - 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 (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) use of anticoagulants, Z86.711 - Personal history of pulmonary embolism Microalbumin, Random (w Creat) 3 Months 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, E11.9 - Type 2 diabetes mellitus without complications, E53.8 - Deficiency of other specified B group vitamins, E55.9 - Vitamin D deficiency, unspecified, E66.9 - Obesity, unspecified, E78.00 - Pure hypercholesterolemia, unspecified, G43.909 - Migraine, unspecified, not intractable, without status migrainosus, I10 - Essential (primary) hypertension, 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
[2024-06-13 16:03] VITALS: BP 140/70; PULSE 87; TEMP 35.8; O2SAT 96; BMI 30.3
== END 2024-06-13 16:58 | disposition home or self-care (01) ==
LOC: HO.HMCH 15:52
PROVIDERS: PCP Internal Medicine
DX: E11.65 Type 2 diabetes mellitus with hyperglycemia (principal); Z79.4 Long term (current) use of insulin; I69.351 Hemiplegia and hemiparesis following cerebral infarction affecting right dominant side; Z68.30 Body mass index [BMI] 30.0-30.9, adult; E66.9 Obesity, unspecified; R07.2 Precordial pain; M19.011 Primary osteoarthritis, right shoulder; I10 Essential (primary) hypertension; E53.8 Deficiency of other specified B group vitamins; K21.9 Gastro-esophageal reflux disease without esophagitis; G43.909 Migraine, unspecified, not intractable, without status migrainosus; M79.7 Fibromyalgia

== ENCOUNTER → 2024-06-13 15:52 | Outpatient (BNVA) | payer MEDICARE, SELFPAY | PROVIDERS: PCP Internal Medicine | DX: R07.2 Precordial pain (principal); E11.65 Type 2 diabetes mellitus with hyperglycemia; Z79.4 Long term (current) use of insulin; I69.351 Hemiplegia and hemiparesis following cerebral infarction affecting right dominant side; M19.011 Primary osteoarthritis, right shoulder; I10 Essential (primary) hypertension; E53.8 Deficiency of other specified B group vitamins; E66.9 Obesity, unspecified; K21.9 Gastro-esophageal reflux disease without esophagitis; G43.909 Migraine, unspecified, not intractable, without status migrainosus; M79.7 Fibromyalgia; E78.00 Pure hypercholesterolemia, unspecified; E55.9 Vitamin D deficiency, unspecified | CPT/HCPCS: 99212 ==

== ENCOUNTER 2024-06-14 07:50 | Outpatient (REF) | payer MEDICARE, SELFPAY ==
[2024-06-14 08:34] LABS: MANUAL DIFF FLAG NO
[2024-06-14 08:58] LABS: Basophils Percent Auto 0.3 % (0-2); Eosinophils Absolute Auto 0.1 X10*3/uL (0.0-0.4); Eosinophils Percent Auto 2.3 % (0-4); Hematocrit 33.7 % (37.0-47.0); Hemoglobin 10.7 g/dl (12.0-16.0); Imm Gran Abs Auto 0.03 X10*3/uL (0.00-0.03); Imm Gran Pct Auto 0.5 % (0.0-0.4); Lymphocytes Absolute Auto 2.1 X10*3/uL (1.2-4.9); Mean Corpuscular HGB Conc 31.8 g/dl (31.0-35.0); Mean Corpuscular Hemoglobin 26.8 pg (27.0-33.0); Mean Corpuscular Volume 84.3 fL (80.0-98.0); Mean Platelet Volume 10.5 fL (9.4-12.3); Monocytes Absolute Auto 0.5 X10*3/uL (0.1-1.2); Monocytes Percent Auto 7.7 % (2-11); Neutrophils Absolute Auto 3.3 x10*3/uL (2.0-8.3); Neutrophils Percent Auto 54.2 % (45-73); Platelet Count 285 X10*3/uL (160-400); Red Cell Distribution Width 13.6 % (11.0-16.0); White Blood Count 6.1 X10*3/uL (4.8-10.8)
[2024-06-14 09:14] LABS: Appearance Urine Cloudy; Color Urine Yellow; Glucose Urine UA 250 mg/dL (Negative); Leukocyte Esterase Urine Small (1+) (Negative); Nitrite Urine Negative (Negative); PH 5.5 (5.0-9.0); UMIC TRIGGER UACC YES; Urine Blood Negative (Negative); Urine Ketones Trace mg/dL (Negative); Urine Protein 30 (1+) mg/dL (Neg-Trace)
[2024-06-14 09:25] LABS: Estimated Average Glucose 318 mg/dL; Hemoglobin A1c % 12.7 % (<6.0)
[2024-06-14 09:32] LABS: Bacteria Urine None Seen (None Seen); Hyaline Casts Urine 0-2 /LPF (0-2); RBC Urine 0-2 /HPF (0-2); UACC Culture Trigger YES; WBC Urine 0-5 /HPF (0-5)
[2024-06-14 09:42] LABS: Alanine Aminotransferase 12 U/L (0-31); Albumin Level 3.8 g/dL (3.5-5.0); Alkaline Phosphatase 101 U/L (39-117); Anion Gap 13 (12-20); Aspartate Amino Transferase 17 U/L (5-31); Bilirubin Total 0.7 mg/dL (0.0-1.0); Blood Urea Nitrogen 14 mg/dL (9-16); Carbon Dioxide 26 mmol/L (22-29); Chloride 106 mmol/L (96-108); Cholesterol 173 mg/dL (<200); Estimated Glomerular Filt Rate > 60; Glucose Fasting 238 mg/dL (60-99); HDL Cholesterol 63 mg/dL (>40); LDL Cholesterol Calculated 94 mg/dL (<100); Potassium 3.5 mmol/L (3.3-5.1); Sodium 141 mmol/L (135-145); Total Protein 6.6 g/dL (6.5-8.0); Triglycerides 82 mg/dL (<150)
[2024-06-14 09:53] LABS: Creatinine Urine 179.08 mg/dL; Microalbum/Creatinine Ratio Ur 35.7 ug/mg cr (<30)
[2024-06-14 10:00] LABS: TSH reflex Free T4 0.84 uIU/mL (0.32-4.0); Vitamin D 25-OH Total 47.7 ng/mL (>30)
[2024-06-17 07:54] LABS: Islet Cell Antibody Screen NEGATIVE (NEGATIVE)
[2024-06-18 08:23] LABS: C Peptide 1.44 ng/mL (0.80-3.85)
[2024-06-20 16:28] LABS: Glutamic acid decarboxylase Ab <5 IU/mL (<5)
== END 2024-06-14 07:51 | disposition home or self-care (01) ==
LOC: HO.LAB 07:50
PROVIDERS: Nurse Practitioner Adult Health; PCP Internal Medicine; Visit Provider Internal Medicine
DX: E11.9 Type 2 diabetes mellitus without complications (principal); D64.9 Anemia, unspecified; E78.00 Pure hypercholesterolemia, unspecified; E55.9 Vitamin D deficiency, unspecified; R30.0 Dysuria
CPT/HCPCS: 36415; 80053; 80061; 81001; 82043; 82306; 82570; 83036; 84443; 84681; 85025; 86341; 87086

== ENCOUNTER 2024-06-22 15:47 | Outpatient (REF) | payer MEDICARE, SELFPAY ==
[2024-06-22 17:29] LABS: C Reactive Protein 0.77 mg/dL (< or = 0.50)
[2024-06-22 18:06] LABS: Erythrocyte Sedimentation Rate 71 MM/HR (0-20)
== END 2024-06-22 15:48 | disposition home or self-care (01) ==
LOC: HO.LAB 15:47
PROVIDERS: PCP Internal Medicine; Visit Provider Registered Nurse
DX: I63.9 Cerebral infarction, unspecified (principal)
CPT/HCPCS: 36415; 85652; 86140

== ENCOUNTER 2024-06-30 14:56 | Outpatient (AMB) | payer MEDICARE, SELFPAY ==
--- NOTE | 2024-06-30 15:10 | A.OFFVIS_ITS ---
Vital Signs 06/30/24 15:11 Height 5 ft 7 in Weight 189 lb 9.561 oz BMI 29.7 BP 134/82 Blood Pressure Location Rt brachial Position Sitting Pulse 96 Pulse Source Pulse Oximeter Pulse Oximetry (%) 98 Oxygen Delivery Method Room Air Intake Visit Reasons: T2DM Intake Note: Patient presents today for a follow-up on Type 2 Diabetes Mellitus: Last Diabetic eye exam was on: DUE Last Podiatry exam was on: Does not see a Geophysical Party Chief Most recent HbA1c: 13.1%, 05/16/2024 Random Glucose- 265 mg/dL, Today Electronic Tester Required: Yes Electronic Tester Language: Gang Hemstitching Machine Operator Services: Electronic Tester Offered & Declined Electronic Tester Name: DAUGHTER Accompanied by: Self / Same As Patient Allergies Penicillins [PENICILLINS] Allergy (Severe, Verified 06/30/24 15:14) SOB, rash, itching codeine [CODEINE] Allergy (Intermediate, Verified 06/30/24 15:14) RASH SOB oxycodone [From PERCOCET] Allergy (Intermediate, Verified 06/30/24 15:14) RASH SOB kiwi [KIWI] Allergy (Mild, Verified 06/30/24 15:14) ITCHY IF TOUCHES pineapple [PINEAPPLE] Allergy (Mild, Verified 06/30/24 15:14) ITCHY IF TOUCHES metformin Adverse Reaction (Intermediate, Verified 06/30/24 15:14) dizziness, blurred vision HPI Comments Details: 68 YO F with PMHx T2DM who is seen in F/U for T2DM. The patient last saw 12/24/23 at which time bolus insulin and Trulicity were increased. Hemoglobin A1c 06/02/2024 13 %, 10/29/2023 7.3. She was in [place] several months ago without her insulin. Glucose readings were in the 700. She did go to the ER in [place] and her NovoLog insulin was increased. Her daughter is concerned that she may have had a stroke at the time and did have some difficulty with speech temporarily when her glucose was high. she has an upcoming appointment with her PCP Initially diagnosed with T2DM in 2001. Previous medications: Metformin and Jardiance which were both stopped secondary to side effects Current meds: Lantus 30 units Novolog 10 units tid before meals Trulicity 1.5mg weekly freestyle sensor: 224 average overnight 12am to 6am 170's, 194 fasting 293 12noon mid 200's throughout the day Treats lows with juice. Checks sugar after to ensure it is rising. Treats according to rule of 15's. Family history of T2DM in her Mother and Sister. Has retinopathy Last eye exam 11/2023 Has neuropathy. Symptoms reported: Numbness, tingling, no pain or cramping does not see podiatry Has nephropathy, on Losartan 100 mg PO daily. 10/29/2023 microalbumin 16.0 11/13/2023 eGFR>60 Has HLD, on Atorvastatin 40 mg PO daily and Zetia 10 mg PO daily. Denies CAD. [facility] Medical History Primary osteoarthritis, right shoulder CVA (cerebral vascular accident) Bleeding hemorrhoids Carpal tunnel syndrome, bilateral Internal and external hemorrhoids without complication Diverticulosis Rectal bleed Varicose veins of both lower extremities with pain Hx pulmonary embolism Rectal bleeding Obesity (BMI 30-39.9) Overactive bladder Migraine GERD without esophagitis Allergic rhinitis Fibromyalgia Vitamin B12 deficiency Asthma Bilateral primary osteoarthritis of knee Pure hypercholesterolemia Benign essential hypertension Bilateral lower extremity edema Mammogram abnormal Intertrigo Breast nodule Goiter Vitamin D deficiency HLD (hyperlipidemia) T2DM (type 2 diabetes mellitus) Arthritis Breast pain, right Calcific tendinitis of right hip Right lumbar radiculopathy Right hip pain Low back pain Surgical History Hx of breast surgery History of colonoscopy History of mammogram History of incision and drainage Hx of cataract extraction Hx of cholecystectomy Hx of tubal ligation Hx of eye surgery History of tonsillectomy and adenoidectomy Family History Father Hypertension Myocardial infarction Stroke Mother Hypertension Diabetes Social History (Reviewed 08/03/24 @ 15:11 by AGUSTIN Patino Household Members: Spouse, Family and Children Housing: House Are you a primary gericare aide to a significant other at home: No Do you presently have visiting nurse or other home services: No Alcohol intake: never Patient Tobacco Use Status: Never used Tobacco e-Cigarette/Vaping Use: Never Used Second Hand Smoke Exposure: No service: No Current occupational status: disabled Cognitive needs: No Hearing needs: No Vision needs: Yes Physical Exam Vital Signs: Last Vital Signs Pulse 96 06/30/24 15:11 BP 134/82 06/30/24 15:11 Pulse Ox 98 06/30/24 15:11 Oxygen Delivery Method Room Air 06/30/24 15:11 BMI result Body Mass Index 29.7 Const Other: Absence of Cushingoid features. Absence of acromegalic features. Neck exam reveals nl size thyroid about 15 gms. No thyroid nodules palpable. Heart S1 S2, Reg R/R. No M/R G. Skin exam reveals absence of vitiligo or acanthosis nigricans. No edema. utilizes walker for ambulation. some involuntary right arm movements (baseline per daughter) Visual exam of foot performed. No ulcerations or open lesions. No inter digit maceration or fissuring. No onychomycosis, no callouses. Sensation intact to monofilament exam. Vibratory sensation is normal with 128 Hz tuning fork. good cap refil Results Reviewed Results Reviewed: Laboratory Last Values Glucose (Clinic) 265 mg/dL (60-115) H 06/30/24 15:15 Assessment & Plan Assessment & Plan (1) T2DM (type 2 diabetes mellitus): Code(s): E11.9 - Type 2 diabetes mellitus without complications Category: Medical Qualifiers: 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 retirement insulin use: with retirement use 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 complication status: with hyperglycemia Qualified Code(s): E11.65 - Type 2 diabetes mellitus with hyperglycemia; Z79.4 - MCFP (current) use of insulin Plan: 60-year-old type 2 diabetic with neuropathy, nephropathy and retinopathy with sugars remaining above target. We will increase insulin New dosing: Lantus 32 units Novolog 12 units before meals Trulicity 1.5 weekly The patient had an opportunity to ask questions regarding treatment plan. The patient expressed understanding and agreement with the above treatment plan. The patient is aware they should contact our office by phone for worsening glucose readings or for any low blood sugars which may warrant a change in diabetes medication. Compliance is encouraged with medications and any followup testing/consults which may have been ordered. Coding Level of Care Code Est Pt Level 4 (42118) Complex EM visit Add On G2211 Diagnoses Type 2 diabetes mellitus with hyperglycemia, with long-term current use of insulin E11.65; Z79.4 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 retirement insulin use: with intermediate manager use 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 complication status: with hyperglycemia
[2024-06-30 15:11] VITALS: BP 134/82; PULSE 96; O2SAT 98; BMI 29.7
[2024-06-30 15:19] LABS: Glucose, Whole Blood 265 mg/dL (60-115)
== END 2024-06-30 15:46 | disposition home or self-care (01) ==
LOC: HO.ENCR 14:57
PROVIDERS: PCP Internal Medicine; Visit Provider Nurse Practitioner Adult Health
DX: E11.65 Type 2 diabetes mellitus with hyperglycemia (principal); Z79.4 Long term (current) use of insulin
CPT/HCPCS: 99214; G2211

== ENCOUNTER → 2024-06-30 14:56 | Outpatient (BNVA) | payer MEDICARE, SELFPAY | PROVIDERS: PCP Internal Medicine; Visit Provider Nurse Practitioner Adult Health | DX: E11.65 Type 2 diabetes mellitus with hyperglycemia (principal); Z79.4 Long term (current) use of insulin; Z79.899 Other long term (current) drug therapy | CPT/HCPCS: 82947; 99212 ==

== ENCOUNTER 2024-08-03 14:20 | Outpatient (AMB) | payer MEDICARE, SELFPAY ==
--- NOTE | 2024-08-03 07:57 | MHC.OFFVIS ---
Intake Visit Reasons: T2DM Allergies Penicillins [PENICILLINS] Allergy (Severe, Verified 06/30/24 15:14) SOB, rash, itching codeine [CODEINE] Allergy (Intermediate, Verified 06/30/24 15:14) RASH SOB oxycodone [From PERCOCET] Allergy (Intermediate, Verified 06/30/24 15:14) RASH SOB kiwi [KIWI] Allergy (Mild, Verified 06/30/24 15:14) ITCHY IF TOUCHES pineapple [PINEAPPLE] Allergy (Mild, Verified 06/30/24 15:14) ITCHY IF TOUCHES metformin Adverse Reaction (Intermediate, Verified 06/30/24 15:14) dizziness, blurred vision HPI Comments Details: 68 YO F with PMHx T2DM who is seen in F/U for T2DM. The patient was last seen 06/02/2024 at which time her insulin dosing was increased and pioglitazone low-dose was added for stroke prevention. Her A1c had risen dramatically because she went to [place] and did not have any medications for 3 weeks. Her family was concerned that she might have had a small stroke when she was there when her sugars were high because she had slurred speech for a short time. Initially diagnosed with T2DM in 2001. Previous medications: Metformin and Jardiance which were both stopped secondary to side effects Current meds: Lantus 32 units NovoLog 12 units before meals Trulicity 1.5 weekly pioglitazone 15mg Freestyle maria c sensor 3 average glucose: [ ] 14 day continuous glucose sensor report reviewed Glucose Management indicator [ ] % Time CGM active [ ] % TIme in ranges: [ ] % very high (above 250) [ ] % high (181-250) [ ] % in range (70-180] [ ] % low (69-55) [ ] % very low (below 54) [ ] Glucose variability [ ] (target <36%) Interpretation of CGMS [ ] Treats lows with juice. Checks sugar after to ensure it is rising. Treats according to rule of 15's. Family history of T2DM in her Mother and Sister. Has retinopathy Last eye exam 11/2023 Has neuropathy. Symptoms reported: Numbness, tingling, no pain or cramping does not see podiatry Has nephropathy, on Losartan 100 mg PO daily. 10/29/2023 microalbumin 16.0 11/13/2023 eGFR>60 Has HLD, on Atorvastatin 40 mg PO daily and Zetia 10 mg PO daily. Denies CAD. [facility] Medical History Primary osteoarthritis, right shoulder CVA (cerebral vascular accident) Bleeding hemorrhoids Carpal tunnel syndrome, bilateral Internal and external hemorrhoids without complication Diverticulosis Rectal bleed Varicose veins of both lower extremities with pain Hx pulmonary embolism Rectal bleeding Obesity (BMI 30-39.9) Overactive bladder Migraine GERD without esophagitis Allergic rhinitis Fibromyalgia Vitamin B12 deficiency Asthma Bilateral primary osteoarthritis of knee Pure hypercholesterolemia Benign essential hypertension Bilateral lower extremity edema Mammogram abnormal Intertrigo Breast nodule Goiter Vitamin D deficiency HLD (hyperlipidemia) T2DM (type 2 diabetes mellitus) Arthritis Breast pain, right Calcific tendinitis of right hip Right lumbar radiculopathy Right hip pain Low back pain Surgical History Hx of breast surgery History of colonoscopy History of mammogram History of incision and drainage Hx of cataract extraction Hx of cholecystectomy Hx of tubal ligation Hx of eye surgery History of tonsillectomy and adenoidectomy Family History Father Hypertension Myocardial infarction Stroke Mother Hypertension Diabetes Social History Household Members: Spouse, Family and Children Housing: House Are you a primary care companion to a significant other at home: No Do you presently have visiting nurse or other home services: No Alcohol intake: never Patient Tobacco Use Status: Never used Tobacco e-Cigarette/Vaping Use: Never Used Second Hand Smoke Exposure: No service: No Current occupational status: disabled Cognitive needs: No Hearing needs: No Vision needs: Yes Coding
[2024-08-03 14:24] VITALS: BP 194/94; PULSE 100; O2SAT 98; BMI 28.3
--- NOTE | 2024-08-03 14:24 | A.OFFVIS_ITS ---
Vital Signs 08/03/24 14:24 Height 5 ft 7 in Weight 180 lb 12.465 oz BMI 28.3 BP 194/94 H Blood Pressure Location Rt brachial Position Sitting Pulse 100 Pulse Source Pulse Oximeter Pulse Oximetry (%) 98 Oxygen Delivery Method Room Air Intake Visit Reasons: T2DM Intake Note: Patient presents today for a follow-up on Type 2 Diabetes Mellitus: Last Diabetic eye exam was on: DUE Last Podiatry exam was on: Does not see a Leg Man Most recent HbA1c: 12.7%, 06/14/2024 Random Glucose- 595 mg/dL, Today, Patient advised to go to the ER. Ambulance was called. International Tax Manager Required: No Accompanied by: Self / Same As Patient Allergies Penicillins [PENICILLINS] Allergy (Severe, Verified 06/30/24 15:14) SOB, rash, itching codeine [CODEINE] Allergy (Intermediate, Verified 06/30/24 15:14) RASH SOB oxycodone [From PERCOCET] Allergy (Intermediate, Verified 06/30/24 15:14) RASH SOB kiwi [KIWI] Allergy (Mild, Verified 06/30/24 15:14) ITCHY IF TOUCHES pineapple [PINEAPPLE] Allergy (Mild, Verified 06/30/24 15:14) ITCHY IF TOUCHES metformin Adverse Reaction (Intermediate, Verified 06/30/24 15:14) dizziness, blurred vision HPI Comments Details: The patient arrived in our clinic 20 minutes late for her appt. On check in her glucose was 595. She was alert, orientated and talking. I advised the patient that it was best for her to be transported via ambulance to the hospital. She expressed her desire to go to [facility] which was communicated to the EMT's. The patient agreed with the treatment plan [facility] Medical History Primary osteoarthritis, right shoulder CVA (cerebral vascular accident) Bleeding hemorrhoids Carpal tunnel syndrome, bilateral Internal and external hemorrhoids without complication Diverticulosis Rectal bleed Varicose veins of both lower extremities with pain Hx pulmonary embolism Rectal bleeding Obesity (BMI 30-39.9) Overactive bladder Migraine GERD without esophagitis Allergic rhinitis Fibromyalgia Vitamin B12 deficiency Asthma Bilateral primary osteoarthritis of knee Pure hypercholesterolemia Benign essential hypertension Bilateral lower extremity edema Mammogram abnormal Intertrigo Breast nodule Goiter Vitamin D deficiency HLD (hyperlipidemia) T2DM (type 2 diabetes mellitus) Arthritis Breast pain, right Calcific tendinitis of right hip Right lumbar radiculopathy Right hip pain Low back pain Surgical History Hx of breast surgery History of colonoscopy History of mammogram History of incision and drainage Hx of cataract extraction Hx of cholecystectomy Hx of tubal ligation Hx of eye surgery History of tonsillectomy and adenoidectomy Family History Father Hypertension Myocardial infarction Stroke Mother Hypertension Diabetes Social History Household Members: Spouse, Family and Children Housing: House Are you a primary managed care coordinator to a significant other at home: No Do you presently have visiting nurse or other home services: No Alcohol intake: never Patient Tobacco Use Status: Never used Tobacco e-Cigarette/Vaping Use: Never Used Second Hand Smoke Exposure: No service: No Current occupational status: disabled Cognitive needs: No Hearing needs: No Vision needs: Yes Physical Exam Vital Signs: Last Vital Signs Pulse 100 08/03/24 14:24 BP 194/94 H 08/03/24 14:24 Pulse Ox 98 08/03/24 14:24 Oxygen Delivery Method Room Air 08/03/24 14:24 BMI result Body Mass Index 28.3 Const Other: Absence of Cushingoid features. Absence of acromegalic features. No dyspnea noted.Alert and orientated, responds to questions. No edema Skin exam reveals absence of vitiligo or acanthosis nigricans.BP elevated. Results Reviewed Results Reviewed: Laboratory Last Values Glucose (Clinic) 595 mg/dL (60-115) H* 08/03/24 14:26 Assessment & Plan Assessment & Plan (1) T2DM (type 2 diabetes mellitus): Code(s): E11.9 - Type 2 diabetes mellitus without complications Category: Medical Qualifiers: 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 intermediate insulin use: with intermediate designer use 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 complication status: with hyperglycemia Qualified Code(s): E11.65 - Type 2 diabetes mellitus with hyperglycemia; Z79.4 - custodial (current) use of insulin Plan: Patient is a 68-year-old type 2 diabetic who presented to clinic 20 minutes after the start of her appointment. Her blood sugar on check in was 595. She was awake alert and speaking and breathing comfortably. She agreed to the [facility] to transport by [address] [facility]. Coding Level of Care Code Est Pt Level 1 (17917) Diagnoses Type 2 diabetes mellitus with hyperglycemia, with long-term current use of insulin E11.65; Z79.4 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 intermediate insulin use: with intermediate designer use 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 complication status: with hyperglycemia Time Spent (min) 10 Comment discussion of treatment plan to transport to [facility]
[2024-08-03 14:32] LABS: Glucose, Whole Blood 595 mg/dL (60-115)
== END 2024-08-03 15:18 | disposition home or self-care (01) ==
LOC: HO.ENCR 14:21
PROVIDERS: PCP Internal Medicine; Visit Provider Nurse Practitioner Adult Health
DX: E11.65 Type 2 diabetes mellitus with hyperglycemia (principal); Z79.4 Long term (current) use of insulin

== ENCOUNTER → 2024-08-03 14:20 | Outpatient (BNVA) | payer MEDICARE, SELFPAY | PROVIDERS: PCP Internal Medicine; Visit Provider Nurse Practitioner Adult Health | DX: E11.65 Type 2 diabetes mellitus with hyperglycemia (principal); Z79.4 Long term (current) use of insulin | CPT/HCPCS: 82947; 99211 ==

== ENCOUNTER 2024-08-30 13:23 | Outpatient (AMB) | payer MEDICARE, SELFPAY ==
[2024-08-30 13:26] VITALS: BP 190/94; PULSE 93; RESP 24; TEMP 36.8; O2SAT 99; BMI 28.9
--- NOTE | 2024-08-30 13:26 | MHC.PC.OV ---
Vital Signs 08/30/24 13:26 08/30/24 14:05 Height 5 ft 7 in Weight 184 lb 11.958 oz BMI 28.9 BP 190/94 H 196/102 H Blood Pressure Location Lt brachial Lt brachial Position Sitting Respiration 24 H Pulse 93 Pulse Source Pulse Oximeter Temp 98.2 F Temp Source Oral Pulse Oximetry (%) 99 Oxygen Delivery Method Room Air Intake Visit Reasons: T2DM/HTN with Supervisor Telephone Answering Service Required: No Accompanied by: Self / Same As Patient Allergies Penicillins [PENICILLINS] Allergy (Severe, Verified 08/30/24 15:12) SOB, rash, itching codeine [CODEINE] Allergy (Intermediate, Verified 08/30/24 15:12) RASH SOB oxycodone [From PERCOCET] Allergy (Intermediate, Verified 08/30/24 15:12) RASH SOB kiwi [KIWI] Allergy (Mild, Verified 08/30/24 15:12) ITCHY IF TOUCHES pineapple [PINEAPPLE] Allergy (Mild, Verified 08/30/24 15:12) ITCHY IF TOUCHES metformin Adverse Reaction (Intermediate, Verified 08/30/24 15:12) dizziness, blurred vision Medication List - Last Reconciled 08/30/24 by BECKY Amezcua albuterol sulfate 2.5 mg (3 mL) continuous nebulization Q4-6H PRN amlodipine 5 mg PO DAILY ascorbate calcium (vitamin C) 500 mg PO DAILY 90 days aspirin (Adult Aspirin Regimen) 81 mg PO DAILY 90 days atorvastatin 80 mg PO DAILY blood sugar diagnostic (OneTouch Ultra Test strips) 5 times per day blood sugar diagnostic (FreeStyle Lite Strips) As directed to test blood sugar three times a day blood-glucose meter (FreeStyle Chester Lite kit) As directed blood-glucose meter (OneTouch Ultra2 Meter kit) As directed 3x/day blood-glucose sensor (FreeStyle Carol 3 Plus Sensor device) As directed every 15 days carvedilol (Coreg) 25 mg PO BID 90 days chlorpromazine 50 mg PO TID cholecalciferol (vitamin D3) 5,000 units PO DAILY 90 days clopidogrel 75 mg PO DAILY 90 days [compression stockings Use daily as directed as needed, strength - medium; length - knee high ] cyanocobalamin (vitamin B-12) 1,000 mcg PO DAILY 90 days dulaglutide (Trulicity) 1.5 mg (0.5 mL) subcut QWEEK ferrous sulfate 325 mg PO BID folic acid 1 mg PO DAILY 90 days gabapentin 400 mg PO TID 30 days glucagon (Gvoke HypoPen 1-Pack) 1 mg subcut QID insulin glargine (Lantus Solostar U-100 Insulin) 32 units (0.32 mL) subcut QPM 30 days lancets 5 times per day lancets (FreeStyle Lancets) As directed test blood sugar three times a day lansoprazole 15 mg PO DAILY [LIGHTWEIGHT STANDARD WHEELCHAIR As directed] [LIGHTWEIGHT WHEELCHAIR As directed] losartan 100 mg PO DAILY 90 days Novolog FlexPen U-100 Insulin (insulin aspart U-100) 4 units See Protocol subcut TIDWMEAL NS pen needle, diabetic (BD Nella 2nd Gen Pen Needle) test 5 times per day pen needle, diabetic (BD Ultra-Fine Micro Pen Needle) 5 times a day as directed - Lantus QD and Humalog QID pioglitazone 15 mg PO DAILY 30 days [ROLLATOR As directed] tramadol 50 mg PO TID PRN 30 days [Transport wheel chair As directed] Ventolin HFA 90 mcg/actuation (albuterol sulfate) 2 puffs inhalation Q4-6H PRN NS [WALKER LEG RUBBER TIPS As directed] Tobacco use date assessed: 08/30/24 Fall risk assessment: 2 + Falls in past year Last assessed Fall Risk: 08/30/24 Dental Screening Dental Screen Date: 08/30/24 Did you have a dental visit in the last 12 months?: Yes Did you have a dental problem in the last 6 months where you did not have access to dental care?: No Was dental information given to patient?: Patient has dentist HPI T2DM/HTN with HPI Details Patient is a 68-year-old female with significant past medical history of CVA x2 right-sided residual, uncontrolled diabetes and HTN. She is presenting today for follow up appointment. She is status post 2 days discharged from [facility] for high blood pressure/high glucose concerns. Prior to [facility] the patient had went into see her info analyst on 08/03/2024, her blood sugar was 595 and she was sent to [place] [facility] and from there she was transferred to [facility]. Per patient, they were not ready to discharge her but compromised with her because it was her son's graduation. Patient blood pressure is elevated in office 190/94, recheck 196/102. Patient denies chest pain. Reports progressively increased dyspnea. Denies lightheadedness or change in vision. Denies headache, denies nausea or vomiting. Per patient she checked her blood sugar this morning and it was in the 200s. Blood sugar checked in office, and read high and was to elevated to be detected by our machine. Advised the patient to go back to the emergency room. Ambulance was called. The patient daughter that dropped her off was called and updated on the plan to transfer her back to the emergency room. No new deficits noted, RUE weakness an action tremors, RLE weakness, gait was steady with rolling walker. She left via stretcher with two attendants. [facility] Medical History Primary osteoarthritis, right shoulder CVA (cerebral vascular accident) Bleeding hemorrhoids Carpal tunnel syndrome, bilateral Internal and external hemorrhoids without complication Diverticulosis Rectal bleed Varicose veins of both lower extremities with pain Hx pulmonary embolism Rectal bleeding Obesity (BMI 30-39.9) Overactive bladder Migraine GERD without esophagitis Allergic rhinitis Fibromyalgia Vitamin B12 deficiency Asthma Bilateral primary osteoarthritis of knee Pure hypercholesterolemia Benign essential hypertension Bilateral lower extremity edema Mammogram abnormal Intertrigo Breast nodule Goiter Vitamin D deficiency HLD (hyperlipidemia) T2DM (type 2 diabetes mellitus) Arthritis Breast pain, right Calcific tendinitis of right hip Right lumbar radiculopathy Right hip pain Low back pain Surgical History Hx of breast surgery History of colonoscopy History of mammogram History of incision and drainage Hx of cataract extraction Hx of cholecystectomy Hx of tubal ligation Hx of eye surgery History of tonsillectomy and adenoidectomy Family History Father Hypertension Myocardial infarction Stroke Mother Hypertension Diabetes Social History Household Members: Spouse, Family and Children Housing: House Are you a primary career technology teacher to a significant other at home: No Do you presently have visiting nurse or other home services: No Alcohol intake: never Patient Tobacco Use Status: Never used Tobacco Smoked in Last 30 Days: No e-Cigarette/Vaping Use: Never Used Second Hand Smoke Exposure: No Use of substances other than those prescribed or required for medical reasons: No Advance Directives: No Advance Directives Information Provided: No service: No Current occupational status: disabled Cognitive needs: No Hearing needs: No Vision needs: Yes (Glasses) Questionnaire PHQ-9 Over the last 2 weeks, how often have you been bothered by any of the following problems? 1. Little interest or pleasure in doing things: not at all 2. Feeling down, depressed, or hopeless: not at all 3. Trouble falling or staying asleep, or sleeping too much: not at all 4. Feeling tired or having little energy: not at all 5. Poor appetite or overeating: not at all 6. Feeling bad about yourself - or that you are a failure or have let yourself or your family down: not at all 7. Trouble concentrating on things, such as reading the newspaper or watching television: not at all 8. Moving or speaking so slowly that other people could have noticed. Or the opposite - being so fidgety or restless that you have been moving around a lot more than usual: not at all 9. Thoughts that you would be better off or of hurting yourself in some way: not at all Total score: 0 Depression Screening Interpretation: Negative Depression Screening Done: Yes Source: Developed by Drs. Taj Willson, Elaine Tsai, Dyllan Singh and colleagues, with an educational cory from [email or web address]. Thrive Questionnaire Date Thrive assessed: 08/30/24 I am a: Patient What is your living situation today?: I have a steady place to live Within the past 12 months, did the food you bought not last and you didn't have the money to get more?: Never true Within the past 12 months, did you worry whether your food would run out before you got money to buy more?: Never true Do you have trouble paying for medicines?: No Do you have trouble getting transportation to medical appointments?: No Do you have trouble paying your heating and electricity bill?: No Do you have trouble taking care of your child, family member or friend?: No Do you have trouble with day-to-day activities such as bathing, preparing meals, shopping, managing finances, etc.?: No Are you currently unemployed and looking for a job?: No Are you interested in more education?: No Please select the resources that you would like help with: None Currently or been in a relationship where the following occur: No concerns reported THRIVE Score: 0 AUDIT C Alcohol Use Questionnaire (AUDIT-C) 1. How often do you have a drink containing alcohol?: Never Total Score: 0 Score Reviewed/Action Taken: No LELE-7 AMB Questionnaire LELE-7 Date LELE - 7 assessed: 08/30/24 Feeling nervous, anxious, or on edge: 0 = Not at all Not being able to stop or control worryin = Not at all Worrying too much about different things: 0 = Not at all Trouble relaxin = Not at all Being so restless that it is hard to sit still: 0 = Not at all Becoming easily annoyed or irritable: 0 = Not at all Feeling afraid as if something awful might happen: 0 = Not at all Total LELE-7 score (0-4 normal; 5-9 mild; 10-14 moderate; 15-21 severe): 0 Source: Developed by Drs. Taj Willson, Elaine Tsai, Dyllan Singh and colleagues, with an educational cory from [email or web address]. LELE-7 Assessment Billing LELE-7 Assessment Tool: LELE-7 Assessment 05590 Review of Systems Const Denies headache(s) Eyes Reports loss of vision (In right eye) ENT Denies vertigo, Denies dizziness, Denies headache(s) and Denies sore throat Card Denies chest pain, Denies leg edema, Denies lightheadedness and Reports dyspnea (progressively getting worse since discharge) Resp Denies cough, Denies hemoptysis, Reports dyspnea (progressively getting worse since discharge) and Denies wheezing GI Denies abdominal pain, Denies melena, Denies constipation, Denies diarrhea and Denies vomiting Denies urinary frequency, Denies dysuria and Denies urinary urgency Musc Denies numbness Neuro Denies Abnormal speech present, Denies behavioral changes, Denies vertigo, Denies dizziness, Denies headache(s), Reports focal weakness ([id number] weakness status post CVA), Reports loss of vision (In right eye), Denies numbness and Reports tremor(s) (Right arm uncoordinated movements-chronic) Psych Denies anxiety, Denies behavioral changes, Denies depression and Denies panic attacks Ruben/Lymph Denies easy bleeding and Denies easy bruising Aller/Immun Denies wheezing Physical exam (Primary Care) Vital Signs: Last Vital Signs Temp 98.2 F 08/30/24 13:26 Pulse 93 08/30/24 13:26 Resp 24 H 08/30/24 13:26 BP 196/102 H 08/30/24 14:05 Pulse Ox 99 08/30/24 13:26 Oxygen Delivery Method Room Air 08/30/24 13:26 BMI result Body Mass Index 28.9 Tobacco/Smoking Status: Tobacco use Status Tobacco use date assessed 08/30/24 08/30/24 13:30 Patient Tobacco Use Status Never used Tobacco 08/30/24 13:30 e-Cigarette/Vaping Use Never Used 08/30/24 13:30 PHQ-9: PHQ-9 Score PHQ-9: Total score 0 08/30/24 14:07 Depression Screening Interpretation: Negative Thrive Assessment: Date of Thrive Assessment Date Thrive assessed 08/30/24 08/30/24 13:30 Currently or been in a relationship where the following occur: No concerns reported Const General: healthy appearing, no acute distress, alert and awake Nutritional Appearance: well nourished Orientation/consciousness: oriented to person, oriented to place and oriented to time HENMT Ears: external ears normal General nose exam: Normal external nose present Eyes Conjunctivae: conjunctivae normal Sclerae: sclerae normal Pupils: Equal, round and reactive pupils present Neck Neck: Yes no lymphadenopathy Thyroid: Thyroid normal Carotids: no bruits Resp Effort & Inspection: normal respiratory effort and not tachypneic Auscultation: no crackles, no rales, no rhonchi and no wheezes Cardio Rate: regular rate Rhythm: regular rhythm Heart sounds: no murmurs and normal S1 and S2 GI Palpation (GI): Soft to palpation, nontender, no hepatomegaly and no splenomegaly Auscultation: normal bowel sounds Skin General skin exam: no rashes or lesions noted and dry skin Neuro General: oriented to person, oriented to place and oriented to time Cranial nerves: Yes Equal, round and reactive pupils present Speech: No Abnormal speech present Gait exam (Neuro): Normal gait present Extrem Right upper extremity: full ROM Left upper extremity: full ROM Right lower extremity: full ROM; no edema Left lower extremity: full ROM; no edema Psych Mental Status: mental status grossly normal Speech and movement: Normal speech and movement present Affect: normal affect Attitude: cooperative Thought process: Normal thought process present Results AMB Random Glucose (hemocue) AMB Random Glucose (hemocue) 401 mg/dL Last Edit by Patricia Rios CMA on 08/30/24 14:01 [facility] Patricia Rios 08/30/24 14:01 [facility] Results Reviewed Results Reviewed: Laboratory Last Values Random Glu (Clinic) 401 mg/dL H* 08/30/24 13:52 Coding Level of Care Code New Pt Level 5 (26476) Diagnoses SOB (shortness of breath) R06.02 Uncontrolled hypertension I10 Type 2 diabetes mellitus with hyperglycemia, with long-term current use of insulin E11.65; Z79.4 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 residential insulin use: with exterminator helper use 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 complication status: with hyperglycemia Additional Codes LELE-7 Assessment Billing - LELE-7 Assessment Tool: LELE-7 Assessment 22370 ([id number]) Time Spent (min) 45 Assessment & Plan Assessment & Plan (1) SOB (shortness of breath): Code(s): R06.02 - Shortness of breath Category: Medical Plan: Reports progressive shortness of breath with exertion Lung sounds are clear History of asthma and PE, denies chest pain Given the patient other symptoms she was advised to go to emergency room (2) Uncontrolled hypertension: Code(s): I10 - Essential (primary) hypertension Category: Medical Plan: Uncontrolled blood pressure 190/94, repeat 196/102 Again patient denies chest pain but endorses shortness of breath has been progressively getting worse She was advised to go to emergency room, ambulance called, waiting with the patient and reported off to EMT staff (3) T2DM (type 2 diabetes mellitus): Code(s): E11.9 - Type 2 diabetes mellitus without complications Category: Medical Qualifiers: 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 residential insulin use: with exterminator helper use 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 complication status: with hyperglycemia Qualified Code(s): E11.65 - Type 2 diabetes mellitus with hyperglycemia; Z79.4 - retirement (current) use of insulin Plan: Patient reports that her blood sugar this morning was in the 200s Rechecked in office and blood pressure was too high to be detected on the machine She was sent to the emergency room to be evaluated Orders: Orders AMB Random Glucose (hemocue) Today BECKY Amezcua E11.65 - Type 2 diabetes mellitus with hyperglycemia Medications: Changed From glucagon (Gvoke HypoPen 1-Pack) 1 mg (0.2 mL) subcut ONCE 0.1 mL 5RF To glucagon (Gvoke HypoPen 1-Pack) 1 mg subcut QID Taj Velez MD Refilled blood-glucose sensor (FreeStyle Carol 3 Plus Sensor device) As directed every 15 days 2 ea 11RF BECKY Amezcua
[2024-08-30 14:05] VITALS: BP 196/102
== END 2024-08-30 14:24 | disposition home or self-care (01) ==
LOC: HO.HMCH 13:24
PROVIDERS: PCP Internal Medicine
DX: R06.02 Shortness of breath (principal); I10 Essential (primary) hypertension; E11.65 Type 2 diabetes mellitus with hyperglycemia; Z79.4 Long term (current) use of insulin

== ENCOUNTER → 2024-08-30 13:23 | Outpatient (BNVA) | payer MEDICARE, SELFPAY | PROVIDERS: PCP Internal Medicine | DX: Z13.89 Encounter for screening for other disorder (principal) | CPT/HCPCS: 82948; 96127; 99212 ==

== ENCOUNTER 2024-08-30 14:33 | Emergency (ER) | payer MEDICARE, SELFPAY ==
--- NOTE | 2024-08-30 15:01 | ECG_ITS ---
Test Reason : cp Blood Pressure : */* mmHG Vent. Rate : 78 BPM Atrial Rate : 78 BPM P-R Int : 144 ms QRS Dur : 84 ms QT Int : 430 ms P-R-T Axes : 53 46 197 degrees QTcB Int : 490 ms Normal sinus rhythm Left ventricular hypertrophy with repolarization abnormality ( Sokolow-Wallace , V[place]org product ) Prolonged QT Abnormal ECG When compared with ECG of 10-Jun-2023 22:23, Premature ventricular complexes are no longer Present Non-specific change in ST segment in Anterior leads T wave inversion now evident in Inferior leads T wave inversion more evident in Anterolateral leads QT has lengthened Referred By: Elizabeth Travis Electronically Signed By: LEEANNA NELSON MD
--- NOTE | 2024-08-30 15:04 | ED_ITS ---
HPI - Weakness General Chief complaint: Recheck/Abnormal Lab/Rx Stated complaint: HTN/hyperglycemia (POC 505) from PCP office Time Seen by Provider: 08/30/24 14:47 History of Present Illness HPI Narrative: Patient is a 68-year-old female with a history of strokes history of diabetes, hypercholesterolemia previous history of PE presented today with having elevated sugar noted by the primary care doctor's office. Patient had lunch she claims she ate a hot dog with some catch-up. No soda no desert. The dose of insulin was unchanged patient took her blood pressure medication this morning including amlodipine, carvedilol and losartan. There is no fever no chills no chest pain or shortness breath patient has no symptoms that is new. 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 Related Data Home Medications ?Medication ?Instructions ?Recorded ?Confirmed lansoprazole 15 mg delayed 15 mg PO DAILY 07/08/23 08/30/24 release,disintegrating tablet chlorpromazine 50 mg tablet 50 mg PO TID 02/09/24 08/30/24 glucagon 0.5 mg/0.1 mL 1 mg subcut QID 08/30/24 08/30/24 subcutaneous auto-injector (Gvoke HypoPen 1-Pack) Previous Rx's ?Medication ?Instructions ?Recorded compression stockings #2 ea 06/18/20 blood-glucose meter (FreeStyle #1 ea 08/16/20 [place] Lite kit) LIGHTWEIGHT WHEELCHAIR #1 ea 01/30/21 blood sugar diagnostic (FreeStyle #100 ea 04/12/21 Lite Strips) lancets 28 gauge (FreeStyle #100 ea 04/12/21 Lancets) blood-glucose meter (OneTouch #1 ea 04/18/21 Ultra2 Meter kit) carvedilol 25 mg tablet (Coreg) 25 mg PO BID 90 days #180 tabs 08/14/21 albuterol sulfate 2.5 mg/3 mL 2.5 mg (3 mL) continuous 09/26/22 (0.083 %) solution for nebulization nebulization Q4-6H PRN Bronchospasm #180 mL lancets 33 gauge #100 ea 09/26/22 pen needle, diabetic 32 gauge x #150 ea 09/26/22 1/4 (BD Ultra-Fine Micro Pen Needle) pen needle, diabetic 32 gauge x #1,200 ea 09/26/22 532 (BD Nella 2nd Gen Pen Needle) Transport wheel chair #1 ea 06/16/23 losartan 100 mg tablet 100 mg PO DAILY 90 days #90 tabs 06/26/23 LIGHTWEIGHT STANDARD WHEELCHAIR #1 ea 07/08/23 ascorbate calcium (vitamin C) 500 500 mg PO DAILY 90 days #90 tabs 07/08/23 mg tablet cholecalciferol (vitamin D3) 125 5,000 unit PO DAILY 90 days #90 07/08/23 mcg (5,000 unit) capsule caps blood sugar diagnostic (OneTouch #100 ea 08/19/23 Ultra Test strips) ROLLATOR #1 ea 11/30/23 cyanocobalamin (vitamin B-12) 1,000 mcg PO DAILY 90 days #90 caps 12/03/23 1,000 mcg capsule folic acid 1 mg tablet 1 mg PO DAILY 90 days #90 tabs 12/03/23 WALKER LEG RUBBER TIPS #2 ea 12/11/23 Novolog FlexPen U-100 Insulin 100 4 unit subcut TIDWMEAL #15 mL 12/24/23 unit/mL (3 mL) subcutaneous (insulin aspart U-100) dulaglutide 1.5 mg/0.5 mL 1.5 mg (0.5 mL) subcut QWEEK #6 mL 12/29/23 subcutaneous pen injector (Trulicity) aspirin 81 mg tablet,delayed 81 mg PO DAILY 90 days #90 tabs 02/07/24 release (Adult Aspirin Regimen) clopidogrel 75 mg tablet 75 mg PO DAILY 90 days #90 tabs 02/09/24 atorvastatin 80 mg tablet 80 mg PO DAILY #30 tabs 03/11/24 Ventolin HFA 90 mcg/actuation 2 puff inhalation Q4-6H PRN 05/05/24 aerosol inhaler (albuterol sulfate) Bronchospasm #18 grams gabapentin 400 mg capsule 400 mg PO TID 30 days #90 caps 05/11/24 insulin glargine 100 unit/mL (3 32 unit (0.32 mL) subcut QPM 30 06/02/24 mL) subcutaneous pen (Lantus days #12 mL Solostar U-100 Insulin) pioglitazone 15 mg tablet 15 mg PO DAILY 30 days #30 tabs 06/02/24 amlodipine 5 mg tablet 5 mg PO DAILY #90 tabs 06/13/24 ferrous sulfate 325 mg (65 mg 325 mg PO BID #60 tabs 06/13/24 iron) tablet tramadol 50 mg tablet 50 mg PO TID PRN pain 30 days #90 07/29/24 tabs blood-glucose sensor (FreeStyle #2 ea 08/30/24 Carol 3 Plus Sensor device) Allergies Allergy/AdvReac Type Severity Reaction Status Date / Time Penicillins [PENICILLINS] Allergy Severe SOB, rash, Verified 08/30/24 15:12 itching codeine [CODEINE] Allergy Intermediate RASH SOB Verified 08/30/24 15:12 oxycodone [From PERCOCET] Allergy Intermediate RASH SOB Verified 08/30/24 15:12 kiwi [KIWI] Allergy Mild ITCHY IF Verified 08/30/24 15:12 TOUCHES pineapple [PINEAPPLE] Allergy Mild ITCHY IF Verified 08/30/24 15:12 TOUCHES metformin AdvReac Intermediate dizziness, Verified 08/30/24 15:12 blurred vision Review of Systems 2 Review of Systems: No fever no chills no chest pain or shortness of breath no systemic complaints Yes all other systems are reviewed and are negative [facility] Past Medical History Attestation statement: The following information was validated with the patient. Medical History Primary osteoarthritis, right shoulder CVA (cerebral vascular accident) Bleeding hemorrhoids Carpal tunnel syndrome, bilateral Internal and external hemorrhoids without complication Diverticulosis Rectal bleed Varicose veins of both lower extremities with pain Hx pulmonary embolism Rectal bleeding Obesity (BMI 30-39.9) Overactive bladder Migraine GERD without esophagitis Allergic rhinitis Fibromyalgia Vitamin B12 deficiency Asthma Bilateral primary osteoarthritis of knee Pure hypercholesterolemia Benign essential hypertension Bilateral lower extremity edema Mammogram abnormal Intertrigo Breast nodule Goiter Vitamin D deficiency HLD (hyperlipidemia) T2DM (type 2 diabetes mellitus) Arthritis Breast pain, right Calcific tendinitis of right hip Right lumbar radiculopathy Right hip pain Low back pain Surgical History Hx of breast surgery History of colonoscopy History of mammogram History of incision and drainage Hx of cataract extraction Hx of cholecystectomy Hx of tubal ligation Hx of eye surgery History of tonsillectomy and adenoidectomy Family History Family History Father Hypertension Myocardial infarction Stroke Mother Hypertension Diabetes Social History Social History Household Members: Spouse, Family and Children Housing: House Are you a primary geriatric personal care aide to a significant other at home: No Do you presently have visiting nurse or other home services: No Alcohol intake: never Patient Tobacco Use Status: Never used Tobacco Smoked in Last 30 Days: No e-Cigarette/Vaping Use: Never Used Second Hand Smoke Exposure: No Use of substances other than those prescribed or required for medical reasons: No Advance Directives: No Advance Directives Information Provided: No service: No Current occupational status: disabled Cognitive needs: No Hearing needs: No Vision needs: Yes (Glasses) Physical Exam 2 Vital Signs: Vital Signs: Last Vital Signs Temp 98.1 F 08/30/24 15:36 Pulse 80 08/30/24 16:55 Resp 18 08/30/24 16:55 BP 172/82 H 08/30/24 16:55 Pulse Ox 99 08/30/24 16:55 O2 Del Method Room Air 08/30/24 16:55 BMI result Body Mass Index 28.8 Appearance: Alert. Oriented X3. No acute distress. Eyes: Pupils equal, round and reactive to light. ENT: Pharynx normal. Neck: Normal inspection. Neck supple. No lymph nodes noted. No crepitus CVS: Normal heart rate and rhythm. Pulses normal. Normal S1 and S2 Respiratory: No respiratory distress. Breath sounds normal. No Wheezing. No rales Abdomen: Soft and nontender. No rigidity. No distention. good BS x4 Skin: Skin warm and dry. Normal skin color. Normal skin turgor. Extremities: No lower extremity edema. Neurovascular intact to all extremities. No Lacerations. No Rash Neuro: Oriented X 3. No motor deficit. No sensory deficit. Moving all extermities. No slurred speech Medications Administered Discontinued Medications Generic Name Dose Route Start Last Admin Trade Name Freq PRN Reason Stop Dose Admin Amlodipine Besylate 5 mg 08/30/24 15:02 08/30/24 15:41 Amlodipine Besylate 5 Mg Tablet PO 08/30/24 15:03 5 mg ONCE ONE Administration Protocol Sodium Chloride 1,000 mls @ 999 mls/hr 08/30/24 15:15 08/30/24 15:41 Ns IV 08/30/24 16:15 999 mls/hr .Q1H1M KENDAL Administration Insulin Human Regular 8 unit 08/30/24 15:40 08/30/24 15:46 Insulin Regular, Human 100 Unit/Ml 10 Ml Vial IVPUSH 08/30/24 15:41 8 unit ONCE ONE Administration Medical Decision Making Medical Decision Making [facility] Narrative: Patient was given 5 mg of amlodipine. Monitor in the emergency department. Insulin was given for the elevated glucose about 500. Came down nicely. Patient is asymptomatic. Electrolytes showed no evidence of diabetic ketoacidosis. PH was normal. My interpretation of patient's EKG showed a sinus rhythm heart rate was 70 SC QRS QTC normal there is significant T-wave inversions over the anterior and lateral leads. When compared to previous EKGs these findings was also present patient's troponin was negative no distress. Will discharge patient home explained to patient the need to follow her diet carefully. Will need close follow-up with her primary physician for blood pressure recheck. Patient's current blood pressure is proximally 160/90. Differential Diagnosis Differential Diagnoses: The differential diagnosis associated with the presentation includes Hypertensive urgency hypertensive emergency, hyperglycemia, diabetic ketoacidosis Admission/Observation Consideration of admission/observation: Escalation of care including admission/observation considered Lab Data [facility] Lab Attestation statement: I reviewed the patient's lab results. 08/30/24 15:15 08/30/24 15:15 Labs: Lab Results 08/30/24 08/30/24 08/30/24 Range/Units 15:05 15:15 15:20 WBC 6.8 (4.8-10.8) X10*3/uL RBC 3.98 L (4.20-5.50) X10*6/uL Hgb 10.9 L (12.0-16.0) g/dl Hct 32.5 L (37.0-47.0) % MCV 81.7 (80.0-98.0) fL MCH 27.4 (27.0-33.0) pg MCHC 33.5 (31.0-35.0) g/dl RDW 13.5 (11.0-16.0) % Plt Count 278 (160-400) X10*3/uL MPV 10.6 (9.4-12.3) fL Immature Gran % (Auto) 0.3 (0.0-0.4) % Neut % (Auto) 62.5 (45-73) % Lymph % (Auto) 29.5 (20-40) % Dawson % (Auto) 6.8 (2-11) % Eos % (Auto) 0.6 (0-4) % Baso % (Auto) 0.3 (0-2) % Lymph # (Auto) 2.0 (1.2-4.9) X10*3/uL Dawson # (Auto) 0.5 (0.1-1.2) X10*3/uL Eos # (Auto) 0.0 (0.0-0.4) X10*3/uL Baso # (Auto) 0.0 (0.0-0.2) X10*3/uL Abs Immat Gran (auto) 0.02 (0.00-0.03) X10*3/uL Absolute Neuts (auto) 4.2 (2.0-8.3) x10*3/uL Absolute Nucleated RBC 0.000 (0.0-0.012) X10*3/uL Nucleated RBC % (auto) 0.0 (0.0-0.2) /100WBC VBG pH 7.46 H (7.32-7.43) VBG pCO2 36 mmHg VBG pO2 40 mmHg VBG HCO3 26 (22-26) mmol/L VBG O2 Saturation 58.0 % VBG Base Excess 2.4 mmol/L Sodium 137 (135-145) mmol/L Potassium 3.7 (3.3-5.1) mmol/L Chloride 102 (96-108) mmol/L Carbon Dioxide 25 (22-29) mmol/L Anion Gap 14 (12-20) BUN 16 (9-16) mg/dL Creatinine 0.95 (0.5-1.4) mg/dL Estim Creat Clear Calc 62.9 Estimated GFR 58 POC Glucose 424 H* (60-115) mg/dL Random Glucose 452 H* (60-115) mg/dL Calcium 9.4 (8.4-10.2) mg/dL Troponin I High Sens < 2.7 (<3.5-17.0) ng/L Beta-Hydroxybutyrate 0.11 (0.02-0.27) mmol/L 08/30/24 Range/Units 16:53 WBC (4.8-10.8) X10*3/uL RBC (4.20-5.50) X10*6/uL Hgb (12.0-16.0) g/dl Hct (37.0-47.0) % MCV (80.0-98.0) fL MCH (27.0-33.0) pg MCHC (31.0-35.0) g/dl RDW (11.0-16.0) % Plt Count (160-400) X10*3/uL MPV (9.4-12.3) fL Immature Gran % (Auto) (0.0-0.4) % Neut % (Auto) (45-73) % Lymph % (Auto) (20-40) % Dawson % (Auto) (2-11) % Eos % (Auto) (0-4) % Baso % (Auto) (0-2) % Lymph # (Auto) (1.2-4.9) X10*3/uL Dawson # (Auto) (0.1-1.2) X10*3/uL Eos # (Auto) (0.0-0.4) X10*3/uL Baso # (Auto) (0.0-0.2) X10*3/uL Abs Immat Gran (auto) (0.00-0.03) X10*3/uL Absolute Neuts (auto) (2.0-8.3) x10*3/uL Absolute Nucleated RBC (0.0-0.012) X10*3/uL Nucleated RBC % (auto) (0.0-0.2) /100WBC VBG pH (7.32-7.43) VBG pCO2 mmHg VBG pO2 mmHg VBG HCO3 (22-26) mmol/L VBG O2 Saturation % VBG Base Excess mmol/L Sodium (135-145) mmol/L Potassium (3.3-5.1) mmol/L Chloride (96-108) mmol/L Carbon Dioxide (22-29) mmol/L Anion Gap (12-20) BUN (9-16) mg/dL Creatinine (0.5-1.4) mg/dL Estim Creat Clear Calc Estimated GFR POC Glucose 148 H (60-115) mg/dL Random Glucose (60-115) mg/dL Calcium (8.4-10.2) mg/dL Troponin I High Sens (<3.5-17.0) ng/L Beta-Hydroxybutyrate (0.02-0.27) mmol/L Independent Interpretation I performed an independent interpretation of an: EKG (My interpretation patient's EKG as above) External Record Review External record reviewed: Office record Chronic Conditions Patient?s care impacted by: Diabetes and Hypertension Social Determinants Patient?s care significantly limited by Social Determinants of Health including: Problems related to primary support group Discharge Plan Discharge Clinical Impression: Acute hyperglycemia, Hypertension Patient Disposition: Home, Self-Care Instructions: Hypertension (ED), Diabetic Hyperglycemia (ED) Prescriptions: No Action (DME) compression stockings See Rx Instructions .Route .MEDSUPPLY Qty: 2 1RF Rx Instructions: Use daily as directed as needed, strength - medium; length - knee high (DME) FreeStyle Lite Strips Strip See Rx Instructions .Route Qty: 100 11RF Rx Instructions: As directed to test blood sugar three times a day (DME) lancets [FreeStyle Lancets] 28 gauge misc See Rx Instructions .Route Qty: 100 11RF Rx Instructions: As directed test blood sugar three times a day (DME) blood-glucose meter [OneTouch Ultra2 Meter] Kit See Rx Instructions .Route Qty: 1 0RF Rx Instructions: As directed 3x/day (DME) pen needle, diabetic [BD Ultra-Fine Micro Pen Needle] 32 gauge x 1/4 needle See Rx Instructions .ROUTE .MEDSUPPLY Qty: 150 11RF Rx Instructions: 5 times a day as directed - Lantus QD and Humalog QID (DME) pen needle, diabetic [BD Nella 2nd Gen Pen Needle] 32 gauge x 5/32 needle See Rx Instructions .ROUTE .MEDSUPPLY Qty: 1200 3RF Rx Instructions: test 5 times per day albuterol sulfate 2.5 mg /3 mL (0.083 %) solution for nebulization 2.5 mg continuous nebulization Q4-6H PRN (Reason: Bronchospasm) Qty: 180 5RF (DME) lancets 33 gauge misc See Rx Instructions .ROUTE .MEDSUPPLY Qty: 100 11RF Rx Instructions: 5 times per day (DME) Transport wheel chair See Rx Instructions .Route .MEDSUPPLY Qty: 1 0RF Rx Instructions: As directed losartan 100 mg tablet 100 mg PO DAILY 90 Days Qty: 90 3RF (DME) OneTouch Ultra Test Strip See Rx Instructions .Route Qty: 100 11RF Rx Instructions: 5 times per day (DME) ROLLATOR See Rx Instructions .Route .MEDSUPPLY Qty: 1 0RF Rx Instructions: As directed cyanocobalamin (vitamin B-12) 1,000 mcg capsule 1,000 mcg PO DAILY 90 Days Qty: 90 3RF folic acid 1 mg tablet 1 mg PO DAILY 90 Days Qty: 90 3RF (DME) WALKER LEG RUBBER TIPS See Rx Instructions .Route .MEDSUPPLY Qty: 2 0RF Rx Instructions: As directed Trulicity 1.5 mg/0.5 mL pen injector 1.5 mg subcut QWEEK Qty: 6 3RF aspirin [Adult Aspirin Regimen] 81 mg tablet,delayed release (DR/EC) 81 mg PO DAILY 90 Days Qty: 90 3RF atorvastatin 80 mg tablet 80 mg PO DAILY Qty: 30 5RF albuterol sulfate [Ventolin HFA] 90 mcg/actuation HFA aerosol inhaler 2 puff inhalation Q4-6H PRN (Reason: Bronchospasm) Qty: 18 5RF gabapentin 400 mg capsule 400 mg PO TID 30 Days Qty: 90 11RF amlodipine 5 mg tablet 5 mg PO DAILY Qty: 90 0RF tramadol 50 mg tablet 50 mg PO TID PRN (Reason: pain) 30 Days Qty: 90 0RF ferrous sulfate 325 mg (65 mg iron) Tablet 325 mg PO BID Qty: 60 5RF (DME) LIGHTWEIGHT WHEELCHAIR See Rx Instructions .Route .MEDSUPPLY Qty: 1 0RF Rx Instructions: As directed (DME) LIGHTWEIGHT STANDARD WHEELCHAIR See Rx Instructions .Route .MEDSUPPLY Qty: 1 0RF Rx Instructions: As directed lansoprazole 15 mg tablet,disintegrat, delay rel 15 mg PO DAILY cholecalciferol (vitamin D3) 125 mcg (5,000 unit) capsule 5,000 unit PO DAILY 90 Days Qty: 90 3RF ascorbate calcium (vitamin C) 500 mg tablet 500 mg PO DAILY 90 Days Qty: 90 3RF (DME) blood-glucose meter [FreeStyle [place] Lite] Kit See Rx Instructions .ROUTE .MEDSUPPLY Qty: 1 0RF Rx Instructions: As directed carvedilol [Coreg] 25 mg tablet 25 mg PO BID 90 Days Qty: 180 3RF Rx Instructions: must administer with a meal/food chlorpromazine 50 mg tablet 50 mg PO TID clopidogrel 75 mg tablet 75 mg PO DAILY 90 Days Qty: 90 3RF pioglitazone 15 mg tablet 15 mg PO DAILY 30 Days Qty: 30 2RF insulin glargine [Lantus Solostar U-100 Insulin] 100 unit/mL (3 mL) insulin pen 32 unit subcut QPM 30 Days Qty: 12 3RF insulin aspart U-100 [Novolog FlexPen U-100 Insulin] 100 unit/mL (3 mL) insulin pen 4 unit subcut TIDWMEAL Qty: 15 5RF Protocol: Insulin Correction Scale Less than or equal to 110 ---- Give (units): 0 111 to 150 Give (units): 0 151 to 200 Give (units): 2 201 to 250 Give (units): 4 251 to 300 Give (units): 6 301 to 350 Give (units): 8 Greater than 350 Give (units): 10 Call MD if Blood Glucose > : 350 Gvoke HypoPen 1-Pack 0.5 mg/0.1 mL auto-injector 1 mg subcut QID (DME) FreeStyle Carol 3 Plus Sensor Device See Rx Instructions .ROUTE .MEDSUPPLY Qty: 2 11RF Rx Instructions: As directed every 15 days Referrals: Erick Villanueva MD [Primary Care Provider] - 09/01/24 Print Language: Turkish
[2024-08-30 15:08] LABS: Glucose, Whole Blood 424 mg/dL (60-115)
[2024-08-30 15:09] VITALS: BP 146/108; PULSE 94; O2SAT 95; BMI 28.8
[2024-08-30 15:19] LABS: MANUAL DIFF FLAG NO
[2024-08-30 15:21] LABS: Basophils Percent Auto 0.3 % (0-2); Eosinophils Percent Auto 0.6 % (0-4); Hematocrit 32.5 % (37.0-47.0); Hemoglobin 10.9 g/dl (12.0-16.0); Imm Gran Abs Auto 0.02 X10*3/uL (0.00-0.03); Imm Gran Pct Auto 0.3 % (0.0-0.4); Lymphocytes Percent Auto 29.5 % (20-40); Mean Corpuscular HGB Conc 33.5 g/dl (31.0-35.0); Mean Corpuscular Hemoglobin 27.4 pg (27.0-33.0); Mean Corpuscular Volume 81.7 fL (80.0-98.0); Mean Platelet Volume 10.6 fL (9.4-12.3); Monocytes Absolute Auto 0.5 X10*3/uL (0.1-1.2); Monocytes Percent Auto 6.8 % (2-11); Neutrophils Absolute Auto 4.2 x10*3/uL (2.0-8.3); Neutrophils Percent Auto 62.5 % (45-73); Platelet Count 278 X10*3/uL (160-400); Red Blood Count 3.98 X10*6/uL (4.20-5.50); Red Cell Distribution Width 13.5 % (11.0-16.0); White Blood Count 6.8 X10*3/uL (4.8-10.8)
[2024-08-30 15:23] LABS: Venous Blood Gas Refer to POC result
[2024-08-30 15:23] LABS: VBG Base Excess 2.4 mmol/L; VBG HCO3 26 mmol/L (22-26); VBG pCO2 36 mmHg; VBG pH 7.46 (7.32-7.43); VBG pO2 40 mmHg
[2024-08-30 15:33] LABS: Beta-Hydroxybutyrate 0.11 mmol/L (0.02-0.27)
[2024-08-30 15:36] VITALS: BP 201/81; PULSE 81; RESP 18; TEMP 36.7; O2SAT 94
[2024-08-30 15:38] LABS: Anion Gap 14 (12-20); Blood Urea Nitrogen 16 mg/dL (9-16); Calcium 9.4 mg/dL (8.4-10.2); Carbon Dioxide 25 mmol/L (22-29); Chloride 102 mmol/L (96-108); Creatinine Clr Calc Pharmacy 62.9; Estimated Glomerular Filt Rate 58; Glucose Random 452 mg/dL (60-115); Potassium 3.7 mmol/L (3.3-5.1); Sodium 137 mmol/L (135-145)
[2024-08-30 15:41] VITALS: BP 201/81
[2024-08-30] MEDS: 0.9 % Sodium Chloride 1,000 ML 999 ML IV (15:41)
[2024-08-30] MEDS: amLODIPine Besylate 5 MG TABLET PO (15:41)
[2024-08-30] MEDS: Insulin Regular, Human 100 UNIT/ML 10 ML VIAL 8 UNIT IVPUSH (15:46)
[2024-08-30 16:01] LABS: Troponin-I High Sensitivity < 2.7 ng/L (<3.5-17.0)
--- NOTE | 2024-08-30 16:09 | PC.NURSE ---
Pt walked to BR with walker and was very dizzy and unsteady on feet returning. Bed was brought to patient.
[2024-08-30 16:55] VITALS: BP 172/82; PULSE 80; RESP 18; O2SAT 99
[2024-08-30 16:57] LABS: Glucose, Whole Blood 148 mg/dL (60-115)
--- NOTE | 2024-08-30 19:14 | PC.NURSE ---
this rn assumed care of pt, this rn assisted pt to bathroom with stand by assist, denied dizziness at this time, fluids administering.
[2024-08-30 20:00] VITALS: BP 162/82; PULSE 84; RESP 17; TEMP 36.9; O2SAT 99
--- NOTE | 2024-08-30 20:00 | PC.NURSE ---
manual bp taken at this time, provider aware, pt offers no complaints at this time
[2024-08-30 20:50] VITALS: BP 162/82; PULSE 84; RESP 17; TEMP 36.9; O2SAT 99
== END 2024-08-30 21:01 | disposition home or self-care (01) ==
PROVIDERS: Emergency Provider Emergency Medicine Emergency Medical Services; PCP Internal Medicine
DX: R79.89 Other specified abnormal findings of blood chemistry (principal); E11.65 Type 2 diabetes mellitus with hyperglycemia; R07.89 Other chest pain; R11.0 Nausea; R94.31 Abnormal electrocardiogram [ECG] [EKG]; I10 Essential (primary) hypertension; Z79.4 Long term (current) use of insulin; Z79.899 Other long term (current) drug therapy
CPT/HCPCS: 36415; 80048; 82010; 82803; 82947; 82948; 84484; 85025; 93005; 96127; 96361; 96374; 99212; 99285

== ENCOUNTER → 2024-08-30 15:01 | Outpatient (BNV) | payer MEDICARE, SELFPAY | PROVIDERS: Emergency Provider Emergency Medicine Emergency Medical Services; PCP Internal Medicine; Visit Provider Internal Medicine Cardiovascular Disease | DX: I51.7 Cardiomegaly (principal) | CPT/HCPCS: 93010 ==

== ENCOUNTER → 2024-09-02 13:59 | Outpatient (BNVA) | payer MEDICARE, SELFPAY | PROVIDERS: PCP Internal Medicine | DX: Z13.89 Encounter for screening for other disorder (principal) ==

== ENCOUNTER 2024-09-08 12:44 | Outpatient (REF) | payer MEDICARE, SELFPAY ==
--- NOTE | ~2024-09-08 | MM_ITS ---
EXAMINATION: DXA BONE DENSITY AXIAL HISTORY: Osteopenia TECHNIQUE: Browsarity Dual energy absorptiometry (DEXA) of the lumbar spine, total left hip, and femoral neck was performed. COMPARISON: Comparison is made with the prior examination dated 01/22/2010. FINDINGS: The bone mineral density of the lumbar spine is 0.907, corresponding to a T-score of -2.3, and a Z-score of -1.6. This is indicative of osteopenia. This represents a BMD change of -18.8% compared to the prior exam. This is statistically significant. The bone mineral density of the left total hip is 0.631, corresponding to a T-score of -3.0, and a Z-score of -2.3. This is indicative of osteoporosis. This represents a BMD change of -30.2% compared to the prior exam. This is statistically significant. The bone mineral density of the left femoral neck is 0.701, corresponding to a T-score of -2.4, and a Z-score of -1.4. This is indicative of osteopenia. This represents a BMD change of -25.1% compared to the prior exam. MM/XR DEXA axial skeleton IMPRESSION: Based on bone mineral density, and according to World Health Organization (WHO) criteria, the diagnosis is consistent with osteoporosis. All bone density values are in grams per centimeter squared (g/cm2). Statistically, 68% of repeat scans fall within 1 SD (+/- 0.010 g/cm2 for AP spine L1-L4) and 1 SD (+/- 0.012 g/cm2 for femur total) FRAX is a trademark of the [employer] [place] for Metabolic Bone Disease, a World Health Organization (WHO) Collaborating Center. Electronically signed by: Taj Lozano MD 09/12/2024 07:12 AM EDT
--- NOTE | ~2024-09-08 | MM_ITS ---
EXAMINATION: MM SCREENING DIGITAL BREAST TOMOSYNTHESIS, BILATERAL CLINICAL INFORMATION: Screening. Asymptomatic. COMPARISON: Mammography: Comparison is made with available priors TECHNIQUE: Digital breast mammography with tomosynthesis is performed in both the craniocaudal and mediolateral oblique views along with computer-aided detection (CAD). FINDINGS: There are scattered areas of fibroglandular density (ACR BI-RADS breast composition Category b). There are no significant masses, abnormal calcifications, or other abnormalities. MM/MM tomosynthesis screening BI IMPRESSION: No mammographic evidence of malignancy. ASSESSMENT: BI-RADS BI-RADS 1 - Negative RECOMMENDATION: Routine annual mammography screening. 1 year F/U This examination should not preclude the clinical evaluation of a suspicious palpable abnormality. This patient's information was entered into a reminder system with a target due date for their next mammogram. Electronically signed by: Sallie Pringle DO 09/13/2024 03:51 PM EDT
== END 2024-09-08 12:45 | disposition home or self-care (01) ==
LOC: HO.MAMMO 12:44
PROVIDERS: PCP Internal Medicine; Visit Provider Internal Medicine Medical Oncology
DX: Z12.31 Encounter for screening mammogram for malignant neoplasm of breast (principal); Z13.820 Encounter for screening for osteoporosis; M81.0 Age-related osteoporosis without current pathological fracture
CPT/HCPCS: 77063; 77067; 77080

== ENCOUNTER → 2024-09-08 13:00 | Outpatient (BNV) | payer MEDICARE, SELFPAY | PROVIDERS: PCP Internal Medicine; Visit Provider Radiology Diagnostic Radiology | DX: Z12.31 Encounter for screening mammogram for malignant neoplasm of breast (principal) | CPT/HCPCS: 77063; 77067 ==

== ENCOUNTER 2024-09-14 20:41 | Inpatient (IN) | payer MEDICARE, SELFPAY ==
--- NOTE | ~2024-09-14 | CT_ITS ---
CLINICAL HISTORY: ?cva CT head without contrast Comparison: 05/26/2023 Findings: No intracranial mass, midline shift, hydrocephalus, or acute hemorrhage. Mild chronic ischemic white matter disease with volume loss. Old left basal ganglia lacunar infarct with encephalomalacia. No acute process in sinuses or mastoids. No acute bony abnormality. Impression: No acute intracranial process This document has been electronically signed by: Delio Mcdonald MD on 09/14/2024 23:14:21
[2024-09-14 20:46] VITALS: BP 163/73; BP 195/75; PULSE 100; PULSE 102; RESP 16; TEMP 37.2; O2SAT 96; O2SAT 98; BMI 29.6
--- NOTE | 2024-09-14 20:48 | ECG_ITS ---
Test Reason : DIZZINESS Blood Pressure : */* mmHG Vent. Rate : 101 BPM Atrial Rate : 101 BPM P-R Int : 132 ms QRS Dur : 84 ms QT Int : 328 ms P-R-T Axes : 28 6 126 degrees QTcB Int : 425 ms Sinus tachycardia Left ventricular hypertrophy with repolarization abnormality ( R in aVL , Sokolow-Wallace , Gregg product ) Abnormal ECG When compared with ECG of 30-Aug-2024 15:18, T wave inversion no longer evident in Inferior leads T wave inversion no longer evident in Anterior leads QT has shortened Referred By: Generic ED Physician Electronically Signed By: MARYLU BRITO
--- NOTE | 2024-09-14 21:05 | PC.NURSE ---
Notified Dr. Trivedi of possible stroke alert
[2024-09-14 21:07] LABS: Glucose, Whole Blood 445 mg/dL (60-115)
--- NOTE | 2024-09-14 21:20 | PC.NURSE ---
Family at bedside who just arrived notified TW that previous report of PT's slurred speech being baseline was incorrect. Slurred speech is new. Notfified Dr. Trivedi of updated information and updated triage note. Notified charger operatorRosi.
--- NOTE | 2024-09-14 21:20 | ED.NEUROSD ---
HPI - Neuro Symptoms/Deficit General Chief Complaint: Dizziness Stated Complaint: Dizzy,weak, bgl 576 Time Seen by Provider: 09/14/24 21:16 Source: patient and family Mode of arrival: EMS Limitations: no limitations History of Present Illness ED Provider: HPI Narrative: Patient is 68 years old with history of diabetes on insulin CVA with residual right hemiparesis dystonia movement disorder polymyalgia rheumatica hypotension history of PE not on anticoagulation asthma on clopidogrel and aspirin comes here for slurring of the speech started about 20:00. Patient does have similar complaints in the past when will diagnose with acute CVA in 06/13 and started on clopidogrel and aspirin patient apparently missed her insulin earlier today went to the charge had food when she came to the ER her blood sugar was elevated was 576 per EMS give 500 cc of normal saline on arrival patient's blood glucose was 489 patient was not noted to have low-grade temperature of 100.4 on arrival no worsening of the weakness noticed per patient also does have a headache does complain of chills Related Data Home Medications ?Medication ?Instructions ?Recorded ?Confirmed lansoprazole 15 mg delayed 15 mg PO DAILY 07/08/23 08/30/24 release,disintegrating tablet chlorpromazine 50 mg tablet 50 mg PO TID 02/09/24 08/30/24 glucagon 0.5 mg/0.1 mL 1 mg subcut QID 08/30/24 08/30/24 subcutaneous auto-injector (Gvoke HypoPen 1-Pack) Previous Rx's ?Medication ?Instructions ?Recorded compression stockings #2 ea 06/18/20 blood-glucose meter (FreeStyle #1 ea 08/16/20 [place] Lite kit) LIGHTWEIGHT WHEELCHAIR #1 ea 01/30/21 blood sugar diagnostic (FreeStyle #100 ea 04/12/21 Lite Strips) lancets 28 gauge (FreeStyle #100 ea 04/12/21 Lancets) blood-glucose meter (OneTouch #1 ea 04/18/21 Ultra2 Meter kit) carvedilol 25 mg tablet (Coreg) 25 mg PO BID 90 days #180 tabs 08/14/21 albuterol sulfate 2.5 mg/3 mL 2.5 mg (3 mL) continuous 09/26/22 (0.083 %) solution for nebulization nebulization Q4-6H PRN Bronchospasm #180 mL lancets 33 gauge #100 ea 09/26/22 pen needle, diabetic 32 gauge x #150 ea 09/26/22 1/4 (BD Ultra-Fine Micro Pen Needle) pen needle, diabetic 32 gauge x #1,200 ea 09/26/22 (BD Nella 2nd Gen Pen Needle) Transport wheel chair #1 ea 06/16/23 losartan 100 mg tablet 100 mg PO DAILY 90 days #90 tabs 06/26/23 LIGHTWEIGHT STANDARD WHEELCHAIR #1 ea 07/08/23 ascorbate calcium (vitamin C) 500 500 mg PO DAILY 90 days #90 tabs 07/08/23 mg tablet cholecalciferol (vitamin D3) 125 5,000 unit PO DAILY 90 days #90 07/08/23 mcg (5,000 unit) capsule caps blood sugar diagnostic (OneTouch #100 ea 08/19/23 Ultra Test strips) ROLLATOR #1 ea 11/30/23 cyanocobalamin (vitamin B-12) 1,000 mcg PO DAILY 90 days #90 caps 12/03/23 1,000 mcg capsule folic acid 1 mg tablet 1 mg PO DAILY 90 days #90 tabs 12/03/23 WALKER LEG RUBBER TIPS #2 ea 12/11/23 Novolog FlexPen U-100 Insulin 100 4 unit subcut TIDWMEAL #15 mL 12/24/23 unit/mL (3 mL) subcutaneous (insulin aspart U-100) dulaglutide 1.5 mg/0.5 mL 1.5 mg (0.5 mL) subcut QWEEK #6 mL 12/29/23 subcutaneous pen injector (Trulicity) aspirin 81 mg tablet,delayed 81 mg PO DAILY 90 days #90 tabs 02/07/24 release (Adult Aspirin Regimen) clopidogrel 75 mg tablet 75 mg PO DAILY 90 days #90 tabs 02/09/24 atorvastatin 80 mg tablet 80 mg PO DAILY #30 tabs 03/11/24 Ventolin HFA 90 mcg/actuation 2 puff inhalation Q4-6H PRN 05/05/24 aerosol inhaler (albuterol sulfate) Bronchospasm #18 grams gabapentin 400 mg capsule 400 mg PO TID 30 days #90 caps 05/11/24 insulin glargine 100 unit/mL (3 32 unit (0.32 mL) subcut QPM 30 06/02/24 mL) subcutaneous pen (Lantus days #12 mL Solostar U-100 Insulin) amlodipine 5 mg tablet 5 mg PO DAILY #90 tabs 06/13/24 ferrous sulfate 325 mg (65 mg 325 mg PO BID #60 tabs 06/13/24 iron) tablet tramadol 50 mg tablet 50 mg PO TID PRN pain 30 days #90 07/29/24 tabs blood-glucose sensor (FreeStyle #2 ea 08/30/24 Carol 3 Plus Sensor device) pioglitazone 15 mg tablet 15 mg PO DAILY 30 days #30 tabs 09/13/24 Allergies Allergy/AdvReac Type Severity Reaction Status Date / Time Penicillins (PENICILLINS) Allergy Severe SOB, rash, Verified 09/14/24 20:56 itching codeine (CODEINE) Allergy Intermediate RASH SOB Verified 09/14/24 20:56 oxycodone (From PERCOCET) Allergy Intermediate RASH SOB Verified 09/14/24 20:56 kiwi (KIWI) Allergy Mild ITCHY IF Verified 09/14/24 20:56 TOUCHES pineapple (PINEAPPLE) Allergy Mild ITCHY IF Verified 09/14/24 20:56 TOUCHES metformin AdvReac Intermediate dizziness, Verified 09/14/24 20:56 blurred vision Review of Systems Review of Systems: Yes all other systems are reviewed and are negative PMFSH Past Medical History Medical History Primary osteoarthritis, right shoulder CVA (cerebral vascular accident) Bleeding hemorrhoids Carpal tunnel syndrome, bilateral Internal and external hemorrhoids without complication Diverticulosis Rectal bleed Varicose veins of both lower extremities with pain Hx pulmonary embolism Rectal bleeding Obesity (BMI 30-39.9) Overactive bladder Migraine GERD without esophagitis Allergic rhinitis Fibromyalgia Vitamin B12 deficiency Asthma Bilateral primary osteoarthritis of knee Pure hypercholesterolemia Benign essential hypertension Bilateral lower extremity edema Mammogram abnormal Intertrigo Breast nodule Goiter Vitamin D deficiency HLD (hyperlipidemia) T2DM (type 2 diabetes mellitus) Arthritis Breast pain, right Calcific tendinitis of right hip Right lumbar radiculopathy Right hip pain Low back pain Surgical History Hx of breast surgery History of colonoscopy History of mammogram History of incision and drainage Hx of cataract extraction Hx of cholecystectomy Hx of tubal ligation Hx of eye surgery History of tonsillectomy and adenoidectomy Family History Family History Father Hypertension Myocardial infarction Stroke Mother Hypertension Diabetes Social History Social History Household Members: Spouse, Family and Children Housing: House Are you a primary acute care assistant to a significant other at home: No Do you presently have visiting nurse or other home services: No Alcohol intake: never Patient Tobacco Use Status: Never used Tobacco Smoked in Last 30 Days: No e-Cigarette/Vaping Use: Never Used Second Hand Smoke Exposure: No Use of substances other than those prescribed or required for medical reasons: No Advance Directives: Yes Advance Directives Information Provided: Yes Advance Directives on File: No Do you have a plan to hurt others: No Plan Patient : No service: No Current occupational status: disabled Cognitive needs: No Hearing needs: No Vision needs: Yes (Glasses) Physical Exam Vital Signs: Vital Signs: Last Vital Signs Temp 99.3 F 09/14/24 23:23 Pulse 109 H 09/14/24 23:26 Resp 23 H 09/14/24 23:26 BP 141/60 H 09/15/24 01:12 Pulse Ox 96 09/14/24 23:23 O2 Del Method Room Air 09/14/24 23:23 BMI result Body Mass Index 29.6 Appearance: Alert. Oriented X3. No acute distress. Eyes: PERRLA, No Nystagmus ENT: Pharynx normal. Oral Mucosa moist Neck: Normal inspection. Neck supple. CVS: Normal heart rate and rhythm. Pulses normal. Respiratory: No respiratory distress. Equal air entry bilateral, no wheezing/rales/rhonchi Abdomen: Soft and nontender. Bowel sounds are present, no mass palpable, no CVA tenderness Skin: Skin warm and dry. Normal skin color. Normal skin turgor. Extremities: No lower extremity edema. No calf tenderness Neuro: Oriented X 3. Residual right hemiparesis slow speech no dysarthria no aphasia No sensory deficit.No cerebellar signs , cranial nerves II-XII intact Medications Administered Generic Name Dose Route Start Last Admin Trade Name Freq PRN Reason Stop Dose Admin Heparin Sodium (Porcine) 5,000 unit 09/15/24 00:15 09/15/24 01:06 Heparin Sodium,Porcine 5,000 Unit/Ml Vial SUBCUT 5,000 unit Q12H KENDAL Administration Sodium Chloride 1,000 mls @ 100 mls/hr 09/15/24 00:15 09/15/24 01:07 Ns IVCONT 100 mls/hr .Q10H KENDAL Administration Discontinued Medications Generic Name Dose Route Start Last Admin Trade Name Freq PRN Reason Stop Dose Admin Amlodipine Besylate 5 mg 09/15/24 01:02 09/15/24 01:12 Amlodipine Besylate 5 Mg Tablet PO 09/15/24 01:03 5 mg ONCE ONE Administration Protocol Ceftriaxone Sodium 1 gm 09/14/24 22:54 09/14/24 23:19 Ceftriaxone Sodium 1 Gm Vial IVPUSH 09/14/24 22:55 1 gm ONCE ONE Administration Sodium Chloride 1,000 mls @ 999 mls/hr 09/14/24 21:26 09/14/24 23:04 Ns IV 09/14/24 22:26 Infused .Q1H1M ONE Infusion Acetaminophen 1,000 mg in 100 mls @ 400 mls/hr 09/14/24 21:51 09/14/24 22:48 Ofirmev IV 09/14/24 22:05 Infused ONCE ONE Infusion Sodium Chloride 1,000 mls @ 999 mls/hr 09/14/24 22:54 09/15/24 00:30 Ns IV 09/14/24 23:54 Infused .Q1H1M ONE Infusion Insulin Glargine 20 unit 09/15/24 00:19 09/15/24 01:06 Insulin Glargine,Hum.Rec.Anlog 100 Unit/Ml 10 Ml Vial SUBCUT 09/15/24 00:20 20 unit ONCE ONE Administration Insulin Human Lispro 14 unit 09/14/24 21:26 09/14/24 21:50 Insulin Lispro 100 Unit/Ml 3 Ml Vial SUBCUT 09/14/24 21:27 14 unit ONCE ONE Administration Insulin Human Lispro 12 unit 09/14/24 22:54 09/14/24 23:20 Insulin Lispro 100 Unit/Ml 3 Ml Vial SUBCUT 09/14/24 22:55 12 unit ONCE ONE Administration Medical Decision Making Medical Decision Making MDM Narrative: Patient is diabetic with history of CVA on clopidogrel and aspirin comes here for hyperglycemia fever and slow speech CT head was negative for acute patient is noted to have UTI patient has received IV fluids insulin symptoms improved will admit patient for further evaluation Differential Diagnosis Differential Diagnoses: The differential diagnosis associated with the presentation includes Admission/Observation Consideration of admission/observation: Escalation of care including admission/observation considered Consult Healthcare Provider Management of the patient was discussed with: Hospitalist Lab Data MDM Lab Attestation statement: I reviewed the patient's lab results. 09/14/24 21:16 09/14/24 21:16 Labs: Lab Results 09/14/24 09/14/24 09/14/24 Range/Units 21:04 21:15 21:16 WBC 10.6 (4.8-10.8) X10*3/uL RBC 4.08 L (4.20-5.50) X10*6/uL Hgb 10.8 L (12.0-16.0) g/dl Hct 32.9 L (37.0-47.0) % MCV 80.6 (80.0-98.0) fL MCH 26.5 L (27.0-33.0) pg MCHC 32.8 (31.0-35.0) g/dl RDW 13.6 (11.0-16.0) % Plt Count 239 (160-400) X10*3/uL MPV 10.9 (9.4-12.3) fL Immature Gran % (Auto) 0.5 H (0.0-0.4) % Neut % (Auto) 78.5 H (45-73) % Lymph % (Auto) 12.8 L (20-40) % [place] % (Auto) 8.1 (2-11) % Eos % (Auto) 0.0 (0-4) % Baso % (Auto) 0.1 (0-2) % Lymph # (Auto) 1.4 (1.2-4.9) X10*3/uL [place] # (Auto) 0.9 (0.1-1.2) X10*3/uL Eos # (Auto) 0.0 (0.0-0.4) X10*3/uL Baso # (Auto) 0.0 (0.0-0.2) X10*3/uL Abs Immat Gran (auto) 0.05 H (0.00-0.03) X10*3/uL Absolute Neuts (auto) 8.3 (2.0-8.3) x10*3/uL Absolute Nucleated RBC 0.000 (0.0-0.012) X10*3/uL Nucleated RBC % (auto) 0.0 (0.0-0.2) /100WBC PT 12.3 (10.9-12.4) SEC INR 1.1 (0.9-1.1) VBG pH (7.32-7.43) VBG pCO2 mmHg VBG pO2 mmHg VBG HCO3 (22-26) mmol/L VBG O2 Saturation % VBG Base Excess mmol/L Sodium 132 L (135-145) mmol/L Potassium 3.2 L (3.3-5.1) mmol/L Chloride 96 (96-108) mmol/L Carbon Dioxide 24 (22-29) mmol/L Anion Gap 15 (12-20) BUN 17 H (9-16) mg/dL Creatinine 1.75 H (0.5-1.4) mg/dL Estim Creat Clear Calc 34.6 Estimated GFR 29 POC Glucose 445 H* (60-115) mg/dL Random Glucose 489 H* (60-115) mg/dL Lactic Acid (0.5-2.0) mmol/L Lactic Acid F/U @ 2Hr (0.5-2.0) mmol/L Calcium 8.5 D (8.4-10.2) mg/dL Magnesium 1.9 (1.6-2.6) mg/dL Total Bilirubin 0.8 (0.0-1.0) mg/dL AST 13 (5-31) U/L ALT 8 (0-31) U/L Alkaline Phosphatase 96 (39-117) U/L Troponin I High Sens 16.1 D (<3.5-17.0) ng/L B-Natriuretic Peptide 144 H (<100) pg/mL Total Protein 6.6 (6.5-8.0) g/dL Albumin 3.7 (3.5-5.0) g/dL Beta-Hydroxybutyrate 0.07 (0.02-0.27) mmol/L TSH 2.64 (0.32-4.0) uIU/mL Free T4 1.21 (0.71-1.85) ng/dL Urine Color Urine Appearance Urine pH (5.0-9.0) Ur Specific [place] (1.005-1.025) Urine Protein (Neg-Trace) mg/dL Urine Glucose (UA) (Negative) mg/dL Urine Ketones (Negative) mg/dL Urine Blood (Negative) Urine Nitrite (Negative) Ur Leukocyte Esterase (Negative) Urine RBC (0-2) /HPF Urine WBC (0-5) /HPF Ur Squamous Epith Cells (0-2) /HPF Urine Bacteria (None Seen) Hyaline Casts (0-2) /LPF 09/14/24 09/14/24 09/14/24 Range/Units 21:24 21:43 21:55 WBC (4.8-10.8) X10*3/uL RBC (4.20-5.50) X10*6/uL Hgb (12.0-16.0) g/dl Hct (37.0-47.0) % MCV (80.0-98.0) fL MCH (27.0-33.0) pg MCHC (31.0-35.0) g/dl RDW (11.0-16.0) % Plt Count (160-400) X10*3/uL MPV (9.4-12.3) fL Immature Gran % (Auto) (0.0-0.4) % Neut % (Auto) (45-73) % Lymph % (Auto) (20-40) % [place] % (Auto) (2-11) % Eos % (Auto) (0-4) % Baso % (Auto) (0-2) % Lymph # (Auto) (1.2-4.9) X10*3/uL [place] # (Auto) (0.1-1.2) X10*3/uL Eos # (Auto) (0.0-0.4) X10*3/uL Baso # (Auto) (0.0-0.2) X10*3/uL Abs Immat Gran (auto) (0.00-0.03) X10*3/uL Absolute Neuts (auto) (2.0-8.3) x10*3/uL Absolute Nucleated RBC (0.0-0.012) X10*3/uL Nucleated RBC % (auto) (0.0-0.2) /100WBC PT (10.9-12.4) SEC INR (0.9-1.1) VBG pH 7.37 (7.32-7.43) VBG pCO2 47 mmHg VBG pO2 32 mmHg VBG HCO3 27 H (22-26) mmol/L VBG O2 Saturation 34.0 % VBG Base Excess 2.0 mmol/L Sodium (135-145) mmol/L Potassium (3.3-5.1) mmol/L Chloride (96-108) mmol/L Carbon Dioxide (22-29) mmol/L Anion Gap (12-20) BUN (9-16) mg/dL Creatinine (0.5-1.4) mg/dL Estim Creat Clear Calc Estimated GFR POC Glucose 462 H* (60-115) mg/dL Random Glucose (60-115) mg/dL Lactic Acid (0.5-2.0) mmol/L Lactic Acid F/U @ 2Hr (0.5-2.0) mmol/L Calcium (8.4-10.2) mg/dL Magnesium (1.6-2.6) mg/dL Total Bilirubin (0.0-1.0) mg/dL AST (5-31) U/L ALT (0-31) U/L Alkaline Phosphatase (39-117) U/L Troponin I High Sens (<3.5-17.0) ng/L B-Natriuretic Peptide (<100) pg/mL Total Protein (6.5-8.0) g/dL Albumin (3.5-5.0) g/dL Beta-Hydroxybutyrate (0.02-0.27) mmol/L TSH (0.32-4.0) uIU/mL Free T4 (0.71-1.85) ng/dL Urine Color Yellow Urine Appearance Turbid Urine pH 5.5 (5.0-9.0) Ur Specific [place] 1.020 (1.005-1.025) Urine Protein 100 (2+) H (Neg-Trace) mg/dL Urine Glucose (UA) >=1000 H (Negative) mg/dL Urine Ketones Negative (Negative) mg/dL Urine Blood Small (1+) H (Negative) Urine Nitrite Negative (Negative) Ur Leukocyte Esterase Moderate (2+) H (Negative) Urine RBC 6-10 H (0-2) /HPF Urine WBC >50 H (0-5) /HPF Ur Squamous Epith Cells 6-10 (0-2) /HPF Urine Bacteria 1+ (None Seen) Hyaline Casts 6-10 (0-2) /LPF 09/14/24 09/14/24 09/15/24 Range/Units 22:23 22:42 00:50 WBC (4.8-10.8) X10*3/uL RBC (4.20-5.50) X10*6/uL Hgb (12.0-16.0) g/dl Hct (37.0-47.0) % MCV (80.0-98.0) fL MCH (27.0-33.0) pg MCHC (31.0-35.0) g/dl RDW (11.0-16.0) % Plt Count (160-400) X10*3/uL MPV (9.4-12.3) fL Immature Gran % (Auto) (0.0-0.4) % Neut % (Auto) (45-73) % Lymph % (Auto) (20-40) % [place] % (Auto) (2-11) % Eos % (Auto) (0-4) % Baso % (Auto) (0-2) % Lymph # (Auto) (1.2-4.9) X10*3/uL [place] # (Auto) (0.1-1.2) X10*3/uL Eos # (Auto) (0.0-0.4) X10*3/uL Baso # (Auto) (0.0-0.2) X10*3/uL Abs Immat Gran (auto) (0.00-0.03) X10*3/uL Absolute Neuts (auto) (2.0-8.3) x10*3/uL Absolute Nucleated RBC (0.0-0.012) X10*3/uL Nucleated RBC % (auto) (0.0-0.2) /100WBC PT (10.9-12.4) SEC INR (0.9-1.1) VBG pH (7.32-7.43) VBG pCO2 mmHg VBG pO2 mmHg VBG HCO3 (22-26) mmol/L VBG O2 Saturation % VBG Base Excess mmol/L Sodium (135-145) mmol/L Potassium (3.3-5.1) mmol/L Chloride (96-108) mmol/L Carbon Dioxide (22-29) mmol/L Anion Gap (12-20) BUN (9-16) mg/dL Creatinine (0.5-1.4) mg/dL Estim Creat Clear Calc Estimated GFR POC Glucose 386 H* (60-115) mg/dL Random Glucose (60-115) mg/dL Lactic Acid 2.5 H* (0.5-2.0) mmol/L Lactic Acid F/U @ 2Hr 1.5 (0.5-2.0) mmol/L Calcium (8.4-10.2) mg/dL Magnesium (1.6-2.6) mg/dL Total Bilirubin (0.0-1.0) mg/dL AST (5-31) U/L ALT (0-31) U/L Alkaline Phosphatase (39-117) U/L Troponin I High Sens (<3.5-17.0) ng/L B-Natriuretic Peptide (<100) pg/mL Total Protein (6.5-8.0) g/dL Albumin (3.5-5.0) g/dL Beta-Hydroxybutyrate (0.02-0.27) mmol/L TSH (0.32-4.0) uIU/mL Free T4 (0.71-1.85) ng/dL Urine Color Urine Appearance Urine pH (5.0-9.0) Ur Specific [place] (1.005-1.025) Urine Protein (Neg-Trace) mg/dL Urine Glucose (UA) (Negative) mg/dL Urine Ketones (Negative) mg/dL Urine Blood (Negative) Urine Nitrite (Negative) Ur Leukocyte Esterase (Negative) Urine RBC (0-2) /HPF Urine WBC (0-5) /HPF Ur Squamous Epith Cells (0-2) /HPF Urine Bacteria (None Seen) Hyaline Casts (0-2) /LPF Independent Interpretation I performed an independent interpretation of an: EKG Interpretation: Sinus tachycardia with heart rate of 101 beats per minute LVH no acute STT wave changes no acute ischemia Radiology Impression Discussion of test interpretation with radiology: I have reviewed the radiologist's reading. Radiologist Impression: No acute Critical Care Time Critical Care Time Critical Care Time: Yes Total Critical Care Time: 60 Attestation: Time is exclusive of separately billable procedures. Time includes: direct patient care, patient reassessment, coordination of patient care, interpretation of data (laboratory data, pulse oximetry, arterial blood gases and chest xrays), review of patient's medical records, medical consultation and documentation of patient care. Procedures excluded from critical care time: central intravenous line placement and electrocardiography. Discharge Plan Discharge Clinical Impression: Acute hyperglycemia, Acute UTI, ARIANNA (acute kidney injury) Patient Disposition: Admitted As Inpatient Print Language: Spanish
[2024-09-14 21:24] LABS: MANUAL DIFF FLAG NO
--- NOTE | 2024-09-14 21:25 | PC.NURSE ---
pt en route to CT
[2024-09-14 21:30] LABS: Basophils Percent Auto 0.1 % (0-2); Hematocrit 32.9 % (37.0-47.0); Hemoglobin 10.8 g/dl (12.0-16.0); Imm Gran Abs Auto 0.05 X10*3/uL (0.00-0.03); Imm Gran Pct Auto 0.5 % (0.0-0.4); Lymphocytes Absolute Auto 1.4 X10*3/uL (1.2-4.9); Lymphocytes Percent Auto 12.8 % (20-40); Mean Corpuscular HGB Conc 32.8 g/dl (31.0-35.0); Mean Corpuscular Hemoglobin 26.5 pg (27.0-33.0); Mean Corpuscular Volume 80.6 fL (80.0-98.0); Mean Platelet Volume 10.9 fL (9.4-12.3); Monocytes Absolute Auto 0.9 X10*3/uL (0.1-1.2); Monocytes Percent Auto 8.1 % (2-11); Neutrophils Absolute Auto 8.3 x10*3/uL (2.0-8.3); Neutrophils Percent Auto 78.5 % (45-73); Platelet Count 239 X10*3/uL (160-400); Red Blood Count 4.08 X10*6/uL (4.20-5.50); Red Cell Distribution Width 13.6 % (11.0-16.0); White Blood Count 10.6 X10*3/uL (4.8-10.8)
[2024-09-14 21:31] LABS: VBG HCO3 27 mmol/L (22-26); VBG pCO2 47 mmHg; VBG pH 7.37 (7.32-7.43); VBG pO2 32 mmHg
[2024-09-14 21:33] LABS: Venous Blood Gas Refer to POC result
[2024-09-14 21:35] LABS: INTERNATIONAL NORM RATIO 1.1 (0.9-1.1); Prothrombin Time 12.3 SEC (10.9-12.4)
[2024-09-14 21:50] LABS: Troponin-I High Sensitivity 16.1 ng/L (<3.5-17.0)
[2024-09-14] MEDS: Insulin Lispro 100 UNIT/ML 3 ML VIAL 14 UNIT SUBCUT (21:50)
[2024-09-14] MEDS: 0.9 % Sodium Chloride 1,000 ML 999 ML IV ×2 (21:50→23:20)
[2024-09-14 21:52] LABS: Appearance Urine Turbid; Color Urine Yellow; Glucose Urine UA >=1000 mg/dL (Negative); Leukocyte Esterase Urine Moderate (2+) (Negative); Nitrite Urine Negative (Negative); PH 5.5 (5.0-9.0); UMIC TRIGGER UACC YES; Urine Blood Small (1+) (Negative); Urine Ketones Negative (Negative); Urine Protein 100 (2+) mg/dL (Neg-Trace)
[2024-09-14 22:00] VITALS: TEMP 38
[2024-09-14 22:01] LABS: Glucose, Whole Blood 462 mg/dL (60-115)
[2024-09-14 22:16] LABS: Bacteria Urine 1+ (None Seen); UACC Culture Trigger YES; WBC Urine >50 /HPF (0-5)
[2024-09-14] MEDS: Acetaminophen 1,000 MG/100 ML PIGGYBACK 400 MG IV (22:33)
[2024-09-14 22:46] LABS: Glucose, Whole Blood 386 mg/dL (60-115)
[2024-09-14 22:52] VITALS: BP 163/61; PULSE 100; RESP 24; O2SAT 97
[2024-09-14 23:04] LABS: Lactic Acid 2.5 mmol/L (0.5-2.0)
[2024-09-14 23:05] LABS: Alanine Aminotransferase 8 U/L (0-31); Albumin Level 3.7 g/dL (3.5-5.0); Alkaline Phosphatase 96 U/L (39-117); Anion Gap 15 (12-20); Aspartate Amino Transferase 13 U/L (5-31); Bilirubin Total 0.8 mg/dL (0.0-1.0); Blood Urea Nitrogen 17 mg/dL (9-16); Calcium 8.5 mg/dL (8.4-10.2); Carbon Dioxide 24 mmol/L (22-29); Chloride 96 mmol/L (96-108); Creatinine Clr Calc Pharmacy 34.6; Estimated Glomerular Filt Rate 29; Glucose Random 489 mg/dL (60-115); Potassium 3.2 mmol/L (3.3-5.1); Sodium 132 mmol/L (135-145); Total Protein 6.6 g/dL (6.5-8.0)
[2024-09-14] MEDS: cefTRIAXone sodium 1 GM VIAL IVPUSH (23:19)
[2024-09-14] MEDS: Insulin Lispro 100 UNIT/ML 3 ML VIAL 12 UNIT SUBCUT (23:20)
[2024-09-14 23:23] VITALS: BP 178/61; PULSE 113; RESP 25; TEMP 37.4; O2SAT 96
[2024-09-14 23:26] VITALS: PULSE 109; RESP 23
[2024-09-15] VITALS (18 sets, daily range): BP systolic 122–199; BP diastolic 47–111; PULSE 72–137; RESP 18–24; TEMP 36.6–37.6; O2SAT 94–100; BMI 29.5; BMI 29.8
[2024-09-15 00:08] LABS: Beta-Hydroxybutyrate 0.07 mmol/L (0.02-0.27)
--- NOTE | 2024-09-15 00:16 | PM.IMHP ---
History of Present Illness Date of Service: 09/15/24 Attending physician on admission: Chantel Rudolph Chief Complaint: hyperglycemia, dizziness Patient is a 68-year-old female Upper Sorbian speaking with past medical history CVA X2, speech impediment, hypertension, insulin-dependent diabetes type 2, peripheral vascular disease, osteoarthritis bilateral knees with history of cortisone injection, heart murmur/ septal hypertrophy, asthma, CAD, ASHOK, legally blind, GERD presents to ED after being brought in by ambulance from [facility] for high BG level recorded on pt's dexcom and dizziness. Patient states she has been feeling dizzy for the last 4 months. Patient denies any issues with hypoglycemia or thyroid abnormalities. Patient does report recent burning sensation with urination only. Patient denies any diarrhea. Patient is not having any chest pain or shortness of breath at rest or with exertion. Patient denies any recent falls or injury. Patient denies any current open wounds. Work up in ED reveals hyperglycemia, no DKA as CO2 24, gap is closed, UTI with positive UA and HTN. Pt underwent sepsis protocol as pt was febrile 100.4, reported chills, was tachy and has elevated LA of 2.5. Pt was not hypoxic on arrival. UA positive for +2 protein, greater than 1000 glucose, small amount of heme, negative for nitrites positive for moderate leukocyte esterase and white blood cells greater than 50 with minimal squamous epithelial cells. Bacteria +1. Patient was started on ceftriaxone in the ED and this will continue. Pt is reporting a speech impediment that is not new and pt reports her tongue is weak . Pt is reporting issues with swallowing but is nonspecific with description when asked about overall symptoms. Initially emergency department did a CT of the head for suspicion for stroke and that is CT of the head is negative for any acute findings. Pt does have a holosystolic murmur III/ and pt states she was told about this murmur since she was 14 yoa. Last echo 06/13 and noted EF with severe septal asymmetric hypertrophy but no obvious valvular disorder. BNP pending. Patient presents euvolemic. This card writer hand reviewed echocardiogram results from May of [address] Love. Will await BNP results and if abnormal can consider echocardiogram. Review of Systems Review of Systems: Patient denies any chest pain, shortness of breath at rest or with exertion. Patient denies any issues with obvious infection including open wounds. Patient is reporting burning with urination only. Patient's reports dizziness that is been ongoing for the last 4 months. Patient denies any falls or injury. Patient is not having any diarrhea or constipation issues Yes all other systems are reviewed and are negative Constitutional: Constitutional: Reports as per [facility] Medical History Primary osteoarthritis, right shoulder CVA (cerebral vascular accident) Bleeding hemorrhoids Carpal tunnel syndrome, bilateral Internal and external hemorrhoids without complication Diverticulosis Rectal bleed Varicose veins of both lower extremities with pain Hx pulmonary embolism Rectal bleeding Obesity (BMI 30-39.9) Overactive bladder Migraine GERD without esophagitis Allergic rhinitis Fibromyalgia Vitamin B12 deficiency Asthma Bilateral primary osteoarthritis of knee Pure hypercholesterolemia Benign essential hypertension Bilateral lower extremity edema Mammogram abnormal Intertrigo Breast nodule Goiter Vitamin D deficiency HLD (hyperlipidemia) T2DM (type 2 diabetes mellitus) Arthritis Breast pain, right Calcific tendinitis of right hip Right lumbar radiculopathy Right hip pain Low back pain Cognitive capacity: Alert and orientated x3 Functional capacity: uses cane/walker Patient : No Family History Father Hypertension Myocardial infarction Stroke Mother Hypertension Diabetes Surgical History Hx of breast surgery History of colonoscopy History of mammogram History of incision and drainage Hx of cataract extraction Hx of cholecystectomy Hx of tubal ligation Hx of eye surgery History of tonsillectomy and adenoidectomy Social History Household Members: Spouse, Family and Children Housing: House Are you a primary career services assistant to a significant other at home: No Do you presently have visiting nurse or other home services: No Alcohol intake: never Patient Tobacco Use Status: Never used Tobacco Smoked in Last 30 Days: No e-Cigarette/Vaping Use: Never Used Second Hand Smoke Exposure: No Use of substances other than those prescribed or required for medical reasons: No Advance Directives: Yes Advance Directives Information Provided: Yes Advance Directives on File: No Do you have a plan to hurt others: No Plan Patient : No service: No Current occupational status: disabled Cognitive needs: No Hearing needs: No Vision needs: Yes (Glasses) Ebola Risk: Travel/Contact With Anyone From Affected Area/s: No Has Patient Experienced Ebola Symptoms: No Meds Allergies Allergy/AdvReac Type Severity Reaction Status Date / Time Penicillins (PENICILLINS) Allergy Severe SOB, rash, Verified 09/14/24 20:56 itching codeine (CODEINE) Allergy Intermediate RASH SOB Verified 09/14/24 20:56 oxycodone (From PERCOCET) Allergy Intermediate RASH SOB Verified 09/14/24 20:56 kiwi (KIWI) Allergy Mild ITCHY IF Verified 09/14/24 20:56 TOUCHES pineapple (PINEAPPLE) Allergy Mild ITCHY IF Verified 09/14/24 20:56 TOUCHES metformin AdvReac Intermediate dizziness, Verified 09/14/24 20:56 blurred vision Active Medications: Current Medications Acetaminophen (Acetaminophen 325 Mg Tablet) 650 mg PO Q6H PRN PRN Reason: Pain, Mild 1-3,fever,headache Albuterol/Ipratropium (Albuterol/Iprat 2.5/0.5mg 3 Ml Ampul.Neb) 3 ml INHALE Q4H PRN PRN Reason: Shortness of Breath/Wheezing Calcium Carbonate (Calcium Carbonate 750 Mg Tab.Chew) 750 mg PO Q4H PRN PRN Reason: Heartburn Dextrose (Dextrose 50 % 25 Gm/50 Ml Syringe) 25 gm IVPUSH Q15M PRN; Protocol PRN Reason: per Hypoglycemia Standing Ord. Glucose (Glucose Gel 15 Gm Gel..Gram.) 15 gm PO Q15M PRN; Protocol PRN Reason: per Hypoglycemia Standing Ord. Heparin Sodium (Porcine) (Heparin Sodium,Porcine 5,000 Unit/Ml Vial) 5,000 unit SUBCUT Q12H KENDAL Sodium Chloride (Ns) 1,000 mls @ 100 mls/hr IVCONT .Q10H KENDAL Insulin Human Lispro (Insulin Lispro 100 Unit/Ml 3 Ml Vial) 0 unit SUBCUT QIDACHS KENDAL; Protocol Magnesium Hydroxide (Milk Of Magnesia 30 Ml Oral.Susp) 30 ml PO DAILY PRN PRN Reason: Constipation Melatonin (Melatonin 3 Mg Tablet) 6 mg PO BEDTIME PRN PRN Reason: Insomnia Ondansetron HCl (Ondansetron Hcl 4 Mg/2 Ml Vial) 4 mg IVPUSH Q8H PRN PRN Reason: Nausea and Vomiting Polyethylene Glycol (Polyethylene Glycol 3350 17 Gm Powd.Pack) 17 gm PO DAILY PRN PRN Reason: Constipation Senna (Sennosides 8.6 Mg Tablet) 17.2 mg PO BEDTIME KENDAL Sodium Chloride (0.9 % Sodium Chloride Flush 3 Ml Syringe) 3 ml IVFLUSH QSHIFT KENDAL Home Medications ?Medication ?Instructions ?Recorded ?Confirmed ?Last Taken ?Type lansoprazole 15 mg delayed 15 mg PO DAILY 07/08/23 08/30/24 Unknown History release,disintegrating tablet chlorpromazine 50 mg tablet 50 mg PO TID 02/09/24 08/30/24 Unknown History glucagon 0.5 mg/0.1 mL 1 mg subcut QID 08/30/24 08/30/24 Unknown History subcutaneous auto-injector (Gvoke HypoPen 1-Pack) Physical Exam Vital Signs and Narrative: Vital Signs: Last Vital Signs Temp 99.3 F 09/14/24 23:23 Pulse 109 H 09/14/24 23:26 Resp 23 H 09/14/24 23:26 BP 178/61 H 09/14/24 23:23 Pulse Ox 96 09/14/24 23:23 O2 Del Method Room Air 09/14/24 23:23 BMI result Body Mass Index 29.6 Alert and orientated X3, able to give good history. Speech impediment noted Neuro: CN II-X11 intact, visual acuity poor right eye EYES: PERRLA, EOM intact, sclera nonicteric, conjunctiva pink, glasses on ENT: hearing intact, uvula midline, lips moist, nares patent no epistaxis Cardiac: S1 S2 RRR, holosystolic murmur, no JVD, no edema in Lower ext Pulmonary: lungs clear to auscultation B Abdominal: BS active in all 4 quadrants, no guarding, tenderness, rebounding MSK: strength 4/5 upper and lower extremities : no CVA tenderness no bladder distension Extremities: no edema in lower extremities, PT and DP pulses palpable +2 Psych: mood stable, judgement and insight good Skin: Intact Results Labs 09/14/24 21:16 09/14/24 21:16 Labs: Laboratory Results - last 24 hr 09/14/24 09/14/24 09/14/24 21:04 21:16 21:24 MCV 80.6 MCH 26.5 L MCHC 32.8 RDW 13.6 Plt Count 239 MPV 10.9 Immature Gran % (Auto) 0.5 H Neut % (Auto) 78.5 H Lymph % (Auto) 12.8 L [place] % (Auto) 8.1 Eos % (Auto) 0.0 Baso % (Auto) 0.1 Lymph # (Auto) 1.4 [place] # (Auto) 0.9 Eos # (Auto) 0.0 Baso # (Auto) 0.0 Abs Immat Gran (auto) 0.05 H Absolute Neuts (auto) 8.3 Absolute Nucleated RBC 0.000 Nucleated RBC % (auto) 0.0 PT 12.3 INR 1.1 VBG pH 7.37 VBG pCO2 47 VBG pO2 32 VBG HCO3 27 H VBG O2 Saturation 34.0 VBG Base Excess 2.0 Anion Gap 15 Estim Creat Clear Calc 34.6 Estimated GFR 29 POC Glucose 445 H* Random Glucose 489 H* Lactic Acid Calcium 8.5 D Total Bilirubin 0.8 AST 13 ALT 8 Alkaline Phosphatase 96 Troponin I High Sens 16.1 D Total Protein 6.6 Albumin 3.7 Beta-Hydroxybutyrate 0.07 Urine Color Urine Appearance Urine pH Ur Specific [place] Urine Protein Urine Glucose (UA) Urine Ketones Urine Blood Urine Nitrite Ur Leukocyte Esterase Urine RBC Urine WBC Ur Squamous Epith Cells Urine Bacteria Hyaline Casts 09/14/24 09/14/24 09/14/24 21:43 21:55 22:23 MCV MCH MCHC RDW Plt Count MPV Immature Gran % (Auto) Neut % (Auto) Lymph % (Auto) [place] % (Auto) Eos % (Auto) Baso % (Auto) Lymph # (Auto) [place] # (Auto) Eos # (Auto) Baso # (Auto) Abs Immat Gran (auto) Absolute Neuts (auto) Absolute Nucleated RBC Nucleated RBC % (auto) PT INR VBG pH VBG pCO2 VBG pO2 VBG HCO3 VBG O2 Saturation VBG Base Excess Anion Gap Estim Creat Clear Calc Estimated GFR POC Glucose 462 H* Random Glucose Lactic Acid 2.5 H* Calcium Total Bilirubin AST ALT Alkaline Phosphatase Troponin I High Sens Total Protein Albumin Beta-Hydroxybutyrate Urine Color Yellow Urine Appearance Turbid Urine pH 5.5 Ur Specific [place] 1.020 Urine Protein 100 (2+) H Urine Glucose (UA) >=1000 H Urine Ketones Negative Urine Blood Small (1+) H Urine Nitrite Negative Ur Leukocyte Esterase Moderate (2+) H Urine RBC 6-10 H Urine WBC >50 H Ur Squamous Epith Cells 6-10 Urine Bacteria 1+ Hyaline Casts 6-10 09/14/24 22:42 MCV MCH MCHC RDW Plt Count MPV Immature Gran % (Auto) Neut % (Auto) Lymph % (Auto) [place] % (Auto) Eos % (Auto) Baso % (Auto) Lymph # (Auto) [place] # (Auto) Eos # (Auto) Baso # (Auto) Abs Immat Gran (auto) Absolute Neuts (auto) Absolute Nucleated RBC Nucleated RBC % (auto) PT INR VBG pH VBG pCO2 VBG pO2 VBG HCO3 VBG O2 Saturation VBG Base Excess Anion Gap Estim Creat Clear Calc Estimated GFR POC Glucose 386 H* Random Glucose Lactic Acid Calcium Total Bilirubin AST ALT Alkaline Phosphatase Troponin I High Sens Total Protein Albumin Beta-Hydroxybutyrate Urine Color Urine Appearance Urine pH Ur Specific [place] Urine Protein Urine Glucose (UA) Urine Ketones Urine Blood Urine Nitrite Ur Leukocyte Esterase Urine RBC Urine WBC Ur Squamous Epith Cells Urine Bacteria Hyaline Casts ECG Attestation: I personally reviewed and interpreted this ECG as follows: (Sinus tachycardia, left ventricular hypertrophy, T-wave inversions no longer present in inferior and anterior leads) Prior ECG tracings: available for review Imaging Radiologist's Impressions: Head CT No acute findings Assessment and Plan (1) UTI (urinary tract infection): Qualifiers: Hematuria presence: with hematuria Urinary tract infection type: acute cystitis Qualified Code(s): N30.01 - Acute cystitis with hematuria Status: Acute Plan Patient is a 68-year-old female Upper Sorbian speaking with past medical history CVA X2, speech impediment, hypertension, insulin-dependent diabetes type 2, peripheral vascular disease, osteoarthritis bilateral knees with history of cortisone injection, heart murmur/ septal hypertrophy, asthma, CAD, ASHOK, legally blind, GERD presents to the emergency room via ambulance after being at [facility] and noting that her Dexcom indicated a very high blood sugar and patient was reporting dizziness. Incidentally patient has evidence of UTI and was started on ceftriaxone and IV fluids per sepsis protocol. Lactic acid elevated, no leukocytosis but patient tachycardic with fever on arrival. Sepsis -Sepsis protocol followed in the emergency department, patient received 30 mL/kilogram protocol for IV fluids -IVF continue with 0.9 NS at 100 mls per hour -Patient is started on ceftriaxone and this will continue -UA is the likely source, follow urine culture -Blood cultures x2 pending -No hypoxia -Trend lactic acid, 2.5 on admission -Telemetry UTI -Patient is started on ceftriaxone -Follow urine culture -IV fluids ARIANNA/ hyponatremia -Creatinine clearance 34.6, GFR 29 - this is a reduction from patient's baseline -Nephrology consulted -Avoid hypotension -IV fluids running -Avoid nephrotoxic drugs including NSAIDs -Hold losartan -Urine for Na, Creat, Osmo and serum osmo ordered -Trend BMP Hypokalemia K 3.2, replacement ordered BMP in AM Telemetry Dizziness Orthostatics ordered [id number] No report of syncope or near syncopal events May be attributed to urinary tract infection but patient reports dizziness for the last 4 months Pt denies hx of vertigo, reports hx of [address] negative for any acute findings IV fluids administered PT eval History of CVA with noted speech impediment Speech therapy eval ordered, speech impediment not new Patient reports her tongue is ?weak? Head CT negative for any acute findings Hyperglycemia/IDDM II Diabetic diet Sliding scale insulin 1 time dose of Lantus 20 units prior to med rec completion No evidence of DKA or HHS Hydration continues A1C pending HTN No issues with hypotension since admission noting sepsis Hydralazine p.r.n. Patient normally on Coreg, amlodipine, and losartan - med rec pending, losartan held due to ARIANNA Will give amlodipine 5 mg 1 time Murmur on exam Last echo 06/13 - EF >70%, no valvular issues noted but abnormal hypertrophy of the septum indicated BNP pending Patient presents euvolemic Consider echo if BNP is abnormal Asthma, chronic - no hypoxia Duo nebs p.r.n. Pt does not use home O2 GERD Omeprazole DVT prophylaxis: Heparin subQ Ppi prophylaxis: Omeprazole Med rec pending Full Code status Quality Stroke Does the patient have a stroke diagnosis?: No Reason for No Anti-thrombotic by Day Two: N/A - Med Ordered VTE Prior VTE?: No VTE Risk Level:: Medical - moderate - high VTE Device Contraindication: N/A - Device Ordered VTE Drug Contraindication: N/A - Med Ordered
[2024-09-15 00:27] LABS: Reflex Lactate? Lactic Acid Added
[2024-09-15 00:59] LABS: Magnesium 1.9 mg/dL (1.6-2.6)
[2024-09-15 01:06] LABS: Free T4 (Free Thyroxine) 1.21 ng/dL (0.71-1.85); Thyroid Stimulating Hormone 2.64 uIU/mL (0.32-4.0)
[2024-09-15] MEDS: Insulin Glargine,Hum.rec.anlog 100 UNIT/ML 10 ML VIAL 20 UNIT SUBCUT (01:06)
[2024-09-15] MEDS: Heparin Sodium,Porcine 5,000 UNIT/ML VIAL 5000 UNIT SUBCUT ×2 (01:06→11:31)
[2024-09-15] MEDS: 0.9 % Sodium Chloride 1,000 ML 100 ML IVCONT ×2 (01:07→16:21)
[2024-09-15] MEDS: amLODIPine Besylate 5 MG TABLET PO (01:12)
[2024-09-15 01:19] LABS: ~Lactic Acid-LAB USE ONLY 1.5 mmol/L (0.5-2.0)
[2024-09-15 01:34] LABS: B Type Natriuretic Peptide 144 pg/mL (<100)
[2024-09-15] MEDS: hydrALAZINE HCl 20 MG/ML VIAL 10 MG IVPUSH (04:58)
[2024-09-15] MEDS: Acetaminophen 325 MG TABLET 650 MG PO ×2 (04:58→16:25)
--- NOTE | 2024-09-15 05:45 | MHC.EDTECH ---
Assisted patient to use the commode .
[2024-09-15 05:57] LABS: Glucose, Whole Blood 200 mg/dL (60-115)
[2024-09-15] MEDS: carvediloL 25 MG TABLET PO ×2 (06:12→21:04)
[2024-09-15] MEDS: Omeprazole 20 MG CAPSULE.DR PO (06:12)
[2024-09-15 07:09] LABS: Glucose, Whole Blood 249 mg/dL (60-115)
[2024-09-15] MEDS: Insulin Lispro 100 UNIT/ML 3 ML VIAL SUBCUT ×4 (07:38→21:06)
--- NOTE | 2024-09-15 08:37 | MHC.CM.PN ---
CM met with Patient at bedside and addressed IMM with her, providing Patient with the original and a copy has been placed on the chart. Patient lives in a 2 level house, uses a walker, and her /HCP/Caregiver/Sudeep, assists her with stairs.Patient lives with her and adult Son. Patient had no services RECEPTIONIST SCHEDULER and may benefit from a PT Eval to assist with disposition (return home self care as before vs new VNA). CM has initiated and will follow for dc planning. PCP is Dr. Erick Villanueva and will transport to home at time of dc.
--- NOTE | 2024-09-15 08:45 | PHA.MEDREC ---
Addendum entered by Randi Pitts [facility] 09/15/24 08:50: Utilize claims and patient to complete med rec. Will update when family calls. Original Note: Pharmacy Consult ? Medication Reconciliation Pharmacy has completed the medication reconciliation. Spoke with pt, while son slept in room. Confirmed all medications with patient, as she did not have a list. She states she takes Trulicty on Sundays, Lantus 30 units at bedtime, and Humalog on a sliding scale, but could not provide the numbers of the sliding scale, but stated her max dose was 18 unit, with no context with which sugar level. She stated to call her , Sudeep, as he helps her with her meds: he was not aware of the Trulicity day of the week, and could not confirm in the insulin units. Sudeep referred us to call his daughter Martha for these questions. Left voicemail with daughter and will update med rec when she calls back.
[2024-09-15 09:21] LABS: MANUAL DIFF FLAG NO
[2024-09-15 09:22] LABS: Basophils Percent Auto 0.2 % (0-2); Hematocrit 27.2 % (37.0-47.0); Hemoglobin 9.1 g/dl (12.0-16.0); Imm Gran Abs Auto 0.05 X10*3/uL (0.00-0.03); Imm Gran Pct Auto 0.4 % (0.0-0.4); Lymphocytes Absolute Auto 1.9 X10*3/uL (1.2-4.9); Lymphocytes Percent Auto 14.6 % (20-40); Mean Corpuscular HGB Conc 33.5 g/dl (31.0-35.0); Mean Corpuscular Volume 80.7 fL (80.0-98.0); Mean Platelet Volume 10.2 fL (9.4-12.3); Monocytes Absolute Auto 1.1 X10*3/uL (0.1-1.2); Monocytes Percent Auto 8.5 % (2-11); Neutrophils Absolute Auto 9.8 x10*3/uL (2.0-8.3); Neutrophils Percent Auto 76.3 % (45-73); Platelet Count 200 X10*3/uL (160-400); Red Blood Count 3.37 X10*6/uL (4.20-5.50); Red Cell Distribution Width 13.7 % (11.0-16.0); White Blood Count 12.8 X10*3/uL (4.8-10.8)
[2024-09-15 09:38] LABS: Alanine Aminotransferase 13 U/L (0-31); Albumin Level 3.1 g/dL (3.5-5.0); Alkaline Phosphatase 86 U/L (39-117); Anion Gap 11 (12-20); Aspartate Amino Transferase 21 U/L (5-31); Bilirubin Total 0.5 mg/dL (0.0-1.0); Blood Urea Nitrogen 15 mg/dL (9-16); Calcium 7.8 mg/dL (8.4-10.2); Carbon Dioxide 21 mmol/L (22-29); Chloride 106 mmol/L (96-108); Creatinine Clr Calc Pharmacy 48.5; Estimated Glomerular Filt Rate 43; Glucose Random 297 mg/dL (60-115); Sodium 135 mmol/L (135-145); Total Protein 5.6 g/dL (6.5-8.0)
[2024-09-15 09:41] LABS: Estimated Average Glucose 289 mg/dL; Hemoglobin A1c % 11.7 % (<6.0)
[2024-09-15 10:51] LABS: Glucose, Whole Blood 245 mg/dL (60-115)
--- NOTE | 2024-09-15 10:59 | MHC.SL.SWA ---
Speech Pathologist Impression: WFL Risk of Aspiration Due to: Dysphasia Diet Status: Regular/Thin Liquid Consistency and Strategies for Safe Swallow: Liquid Intake Recommendation: Thin Liquid Intake Strategies: Solid Food Consistency: Dietary Recommendations: Regular Additional Modifications to Solid Foods: Oral Medication Intake: Whole with Liquid Please contact the pharmacy regarding appropriate crushable or liquid drug formulations that are available whenever modified delivery is recommended. Compensatory Strategies and Precautions to be Taken for Safe Swallow: Supervision While Eating and Drinking for Safe Swallow: Tray Set Up Foods to Avoid: Too large pieces of food: Patient needs food cut up for her. Swallowing Recommended Treatments: Recommendation for Speech: NA:Typical Evaluation Comment: Patient presents with swallow WFL, and with c/o speech slurring mostly resolved. 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 Recommend continue on REGULAR diet with THIN liquids, pills WHOLE with liquid. Patient reports that caregiver/ cuts up food for her, and will need this assistance with her food tray if no family present at meals. It was recommended to patient if she continues to have concerns about her mild dysarthria, that she seek a referral for outpatient speech from her PCP (not needed as a part of this inpatient stay). It was further recommended that she elect softer foods from the Regular Menu, given difficulty independently cutting up food. No further TRANSPORTATION DEPARTMENT SUPERVISOR service indicated as a part of this inpatient stay, will discharge Speech. EMILY TERRAZAS notified by secure text of recommendations. Frequency/Duration: Date Range for Service Req: Timeline to reassess: Miller Head Wet Process Clinican/Clinical Fellow: No Supervisory Statement: I have reviewed and agree with the student/clinical fellow's documentation: N/A Speech Language Pathologist: Karishma Duenas M.A., CCC-TRANSPORTATION DEPARTMENT SUPERVISOR
[2024-09-15] MEDS: Potassium Chloride ER 20 MEQ TAB.ER.PRT PO (12:27)
[2024-09-15 17:06] LABS: Glucose, Whole Blood 207 mg/dL (60-115)
--- NOTE | 2024-09-15 18:09 | P.PNIM_ITS ---
Subjective Subjective Date of Service: 09/15/24 Interval History: uti,bacteremia ,sepsis Review of Systems no new speech abnormality ,dizziness improving blood pressure flactuating Physical Exam 2 Vital Signs: Vital Signs: Last Vital Signs Temp 99.4 F 09/15/24 16:00 Pulse 95 09/15/24 17:05 Resp 19 09/15/24 16:00 BP 173/81 H 09/15/24 17:05 Pulse Ox 100 09/15/24 16:00 O2 Del Method Room Air 09/15/24 16:00 BMI result Body Mass Index 29.8 Appearance: Alert.? Oriented X3.? cvs: [id number], [id number] , no murmur res: clear to auscultation ,no rhonchii or wheezing abd: no rebound or guarding ,nt, bs present. ext pulses present , no cyanosis . neuro: axo3 , nonfocal. Objective Data Active Medications Acetaminophen (Acetaminophen 325 Mg Tablet) 650 mg PO Q6H PRN PRN Reason: Pain, Mild 1-3,fever,headache Last Admin: 09/15/24 16:25 Dose: 650 mg Documented By: AMPARO Albuterol/Ipratropium (Albuterol/Iprat 2.5/0.5mg 3 Ml Ampul.Neb) 3 ml INHALE Q4H PRN PRN Reason: Shortness of Breath/Wheezing Calcium Carbonate (Calcium Carbonate 750 Mg Tab.Chew) 750 mg PO Q4H PRN PRN Reason: Heartburn Carvedilol (Carvedilol 25 Mg Tablet) 25 mg PO BID [facility]; Protocol Last Admin: 09/15/24 06:12 Dose: 25 mg Documented By: JOANNA Ceftriaxone Sodium (Ceftriaxone Sodium 2 Gm Vial) 2 gm IVPUSH Q24H [facility] Dextrose (Dextrose 50 % 25 Gm/50 Ml Syringe) 25 gm IVPUSH Q15M PRN; Protocol PRN Reason: per Hypoglycemia Standing Ord. Glucose (Glucose Gel 15 Gm Gel..Gram.) 15 gm PO Q15M PRN; Protocol PRN Reason: per Hypoglycemia Standing Ord. Heparin Sodium (Porcine) (Heparin Sodium,Porcine 5,000 Unit/Ml Vial) 5,000 unit SUBCUT Q12H [facility] Last Admin: 09/15/24 11:31 Dose: 5,000 unit Documented By: AMPARO Hydralazine HCl (Hydralazine Hcl 20 Mg/Ml Vial) 10 mg IVPUSH Q6H PRN; Protocol PRN Reason: SBP > 160 Last Admin: 09/15/24 04:58 Dose: 10 mg Documented By: JOANNA Sodium Chloride (Ns) 1,000 mls @ 100 mls/hr IVCONT .Q10H [facility] Last Admin: 09/15/24 16:21 Dose: 100 mls/hr Documented By: AMPARO Insulin Human Lispro (Insulin Lispro 100 Unit/Ml 3 Ml Vial) 0 unit SUBCUT QIDACHS [facility]; Protocol Last Admin: 09/15/24 17:17 Dose: 6 unit Documented By: AMPARO Magnesium Hydroxide (Milk Of Magnesia 30 Ml Oral.Susp) 30 ml PO DAILY PRN PRN Reason: Constipation Melatonin (Melatonin 3 Mg Tablet) 6 mg PO BEDTIME PRN PRN Reason: Insomnia Omeprazole (Omeprazole 20 Mg Capsule.Dr) 20 mg PO DAILY@0630 [facility] Last Admin: 09/15/24 06:12 Dose: 20 mg Documented By: JOANNA Ondansetron HCl (Ondansetron Hcl 4 Mg/2 Ml Vial) 4 mg IVPUSH Q8H PRN PRN Reason: Nausea and Vomiting Polyethylene Glycol (Polyethylene Glycol 3350 17 Gm Powd.Pack) 17 gm PO DAILY PRN PRN Reason: Constipation Senna (Sennosides 8.6 Mg Tablet) 17.2 mg PO BEDTIME [facility] Sodium Chloride (0.9 % Sodium Chloride Flush 3 Ml Syringe) 3 ml IVFLUSH QSHIFT [facility] Last Admin: 09/15/24 17:20 Dose: Not Given Documented By: AMPARO Non-Admin Reason: IV Running Labs 09/15/24 09:16 09/15/24 09:16 Labs: Laboratory Results - last 24 hr 09/14/24 09/14/24 09/14/24 21:04 21:15 21:16 MCV 80.6 MCH 26.5 L MCHC 32.8 RDW 13.6 Plt Count 239 MPV 10.9 Immature Gran % (Auto) 0.5 H Neut % (Auto) 78.5 H Lymph % (Auto) 12.8 L [place] % (Auto) 8.1 Eos % (Auto) 0.0 Baso % (Auto) 0.1 Lymph # (Auto) 1.4 [place] # (Auto) 0.9 Eos # (Auto) 0.0 Baso # (Auto) 0.0 Abs Immat Gran (auto) 0.05 H Absolute Neuts (auto) 8.3 Absolute Nucleated RBC 0.000 Nucleated RBC % (auto) 0.0 PT 12.3 INR 1.1 VBG pH VBG pCO2 VBG pO2 VBG HCO3 VBG O2 Saturation VBG Base Excess Anion Gap 15 Estim Creat Clear Calc 34.6 Estimated GFR 29 POC Glucose 445 H* Random Glucose 489 H* Estimat Average Glucose Hemoglobin A1c % Lactic Acid Lactic Acid F/U @ 2Hr Calcium 8.5 D Magnesium 1.9 Total Bilirubin 0.8 AST 13 ALT 8 Alkaline Phosphatase 96 Troponin I High Sens 16.1 D B-Natriuretic Peptide 144 H Total Protein 6.6 Albumin 3.7 Beta-Hydroxybutyrate 0.07 TSH 2.64 Free T4 1.21 Urine Color Urine Appearance Urine pH Ur Specific [place] Urine Protein Urine Glucose (UA) Urine Ketones Urine Blood Urine Nitrite Ur Leukocyte Esterase Urine RBC Urine WBC Ur Squamous Epith Cells Urine Bacteria Hyaline Casts 09/14/24 09/14/24 09/14/24 21:24 21:43 21:55 MCV MCH MCHC RDW Plt Count MPV Immature Gran % (Auto) Neut % (Auto) Lymph % (Auto) [place] % (Auto) Eos % (Auto) Baso % (Auto) Lymph # (Auto) [place] # (Auto) Eos # (Auto) Baso # (Auto) Abs Immat Gran (auto) Absolute Neuts (auto) Absolute Nucleated RBC Nucleated RBC % (auto) PT INR VBG pH 7.37 VBG pCO2 47 VBG pO2 32 VBG HCO3 27 H VBG O2 Saturation 34.0 VBG Base Excess 2.0 Anion Gap Estim Creat Clear Calc Estimated GFR POC Glucose 462 H* Random Glucose Estimat Average Glucose Hemoglobin A1c % Lactic Acid Lactic Acid F/U @ 2Hr Calcium Magnesium Total Bilirubin AST ALT Alkaline Phosphatase Troponin I High Sens B-Natriuretic Peptide Total Protein Albumin Beta-Hydroxybutyrate TSH Free T4 Urine Color Yellow Urine Appearance Turbid Urine pH 5.5 Ur Specific [place] 1.020 Urine Protein 100 (2+) H Urine Glucose (UA) >=1000 H Urine Ketones Negative Urine Blood Small (1+) H Urine Nitrite Negative Ur Leukocyte Esterase Moderate (2+) H Urine RBC 6-10 H Urine WBC >50 H Ur Squamous Epith Cells 6-10 Urine Bacteria 1+ Hyaline Casts 6-10 09/14/24 09/14/24 09/15/24 22:23 22:42 00:50 MCV MCH MCHC RDW Plt Count MPV Immature Gran % (Auto) Neut % (Auto) Lymph % (Auto) [place] % (Auto) Eos % (Auto) Baso % (Auto) Lymph # (Auto) [place] # (Auto) Eos # (Auto) Baso # (Auto) Abs Immat Gran (auto) Absolute Neuts (auto) Absolute Nucleated RBC Nucleated RBC % (auto) PT INR VBG pH VBG pCO2 VBG pO2 VBG HCO3 VBG O2 Saturation VBG Base Excess Anion Gap Estim Creat Clear Calc Estimated GFR POC Glucose 386 H* Random Glucose Estimat Average Glucose Hemoglobin A1c % Lactic Acid 2.5 H* Lactic Acid F/U @ 2Hr 1.5 Calcium Magnesium Total Bilirubin AST ALT Alkaline Phosphatase Troponin I High Sens B-Natriuretic Peptide Total Protein Albumin Beta-Hydroxybutyrate TSH Free T4 Urine Color Urine Appearance Urine pH Ur Specific [place] Urine Protein Urine Glucose (UA) Urine Ketones Urine Blood Urine Nitrite Ur Leukocyte Esterase Urine RBC Urine WBC Ur Squamous Epith Cells Urine Bacteria Hyaline Casts 09/15/24 09/15/24 09/15/24 05:53 06:59 09:16 MCV 80.7 MCH 27.0 MCHC 33.5 RDW 13.7 Plt Count 200 MPV 10.2 Immature Gran % (Auto) 0.4 Neut % (Auto) 76.3 H Lymph % (Auto) 14.6 L [place] % (Auto) 8.5 Eos % (Auto) 0.0 Baso % (Auto) 0.2 Lymph # (Auto) 1.9 [place] # (Auto) 1.1 Eos # (Auto) 0.0 Baso # (Auto) 0.0 Abs Immat Gran (auto) 0.05 H Absolute Neuts (auto) 9.8 H Absolute Nucleated RBC 0.000 Nucleated RBC % (auto) 0.0 PT INR VBG pH VBG pCO2 VBG pO2 VBG HCO3 VBG O2 Saturation VBG Base Excess Anion Gap 11 L Estim Creat Clear Calc 48.5 Estimated GFR 43 POC Glucose 200 H 249 H Random Glucose 297 H Estimat Average Glucose 289 Hemoglobin A1c % 11.7 H Lactic Acid Lactic Acid F/U @ 2Hr Calcium 7.8 L D Magnesium Total Bilirubin 0.5 AST 21 ALT 13 Alkaline Phosphatase 86 Troponin I High Sens B-Natriuretic Peptide Total Protein 5.6 L Albumin 3.1 L Beta-Hydroxybutyrate TSH Free T4 Urine Color Urine Appearance Urine pH Ur Specific [place] Urine Protein Urine Glucose (UA) Urine Ketones Urine Blood Urine Nitrite Ur Leukocyte Esterase Urine RBC Urine WBC Ur Squamous Epith Cells Urine Bacteria Hyaline Casts 09/15/24 09/15/24 10:43 16:36 MCV MCH MCHC RDW Plt Count MPV Immature Gran % (Auto) Neut % (Auto) Lymph % (Auto) [place] % (Auto) Eos % (Auto) Baso % (Auto) Lymph # (Auto) [place] # (Auto) Eos # (Auto) Baso # (Auto) Abs Immat Gran (auto) Absolute Neuts (auto) Absolute Nucleated RBC Nucleated RBC % (auto) PT INR VBG pH VBG pCO2 VBG pO2 VBG HCO3 VBG O2 Saturation VBG Base Excess Anion Gap Estim Creat Clear Calc Estimated GFR POC Glucose 245 H 207 H Random Glucose Estimat Average Glucose Hemoglobin A1c % Lactic Acid Lactic Acid F/U @ 2Hr Calcium Magnesium Total Bilirubin AST ALT Alkaline Phosphatase Troponin I High Sens B-Natriuretic Peptide Total Protein Albumin Beta-Hydroxybutyrate TSH Free T4 Urine Color Urine Appearance Urine pH Ur Specific [place] Urine Protein Urine Glucose (UA) Urine Ketones Urine Blood Urine Nitrite Ur Leukocyte Esterase Urine RBC Urine WBC Ur Squamous Epith Cells Urine Bacteria Hyaline Casts Microbiology Microbiology Results: Microbiology 09/14/24 22:23 Blood Culture - Preliminary Blood - Venous Prelim: GNR Gram Stain only 09/14/24 22:23 Blood Culture - Preliminary Blood - Venous Prelim: GNR Gram Stain only 09/14/24 Unknown Urine Culture - Preliminary Urine clean catch - Clean Catch Midstream Gram negative telly Assessment and Plan (1) ARIANNA (acute kidney injury): Status: Acute Assessment and Plan: 68-year-old female Kenyan speaking with past medical history CVA X2, speech impediment, hypertension, insulin-dependent diabetes type 2, peripheral vascular disease, osteoarthritis bilateral knees with history of cortisone injection, heart murmur/ septal hypertrophy, asthma, CAD, ASHOK, legally blind, GERD presents to the emergency room via ambulance [facility] being [facility] and noting that her Dexcom indicated a very high blood sugar and patient was reporting dizziness. Incidentally patient has evidence of UTI and was started on ceftriaxone and IV fluids per sepsis protocol. Lactic acid elevated, no leukocytosis but patient tachycardic with fever on arrival. Sepsis sec to uti,gram negative bacteremia acute lactic acidosis-improved. continue iv ceftriaxone. ARIANNA/ hyponatremia -Creatinine clearance 34.6, GFR 29 - this is a reduction from patient's baseline given iv f,Avoid nephrotoxic drugs including NSAIDs,Hold losartan Hypokalemia: repelted moniter bmp. Dizziness Orthostatics negatives No report of syncope or near syncopal events May be attributed to urinary tract infection but patient reports dizziness for the last 4 months Pt denies hx of vertigo, reports hx of [address] negative for any acute findings PT eval. History of CVA with noted speech impediment Speech therapy eval ordered, speech impediment not new Patient reports her tongue is ?weak? Head CT negative for any acute findings. Hyperglycemia/IDDM II: lantus 30 units qpm ,sliding scle coverage hba1c 11.7 Diabetic diet HTN continue on Coreg, amlodipine,hold losaratn due to arianna Murmur on exam Last echo 06/13 - EF >70%, no valvular issues noted but abnormal hypertrophy of the septum indicated seems euvolemic Denies any chest pain or shortness of breath Further workup outpatient. Asthma, chronic - no hypoxia Duo nebs p.r.n. Pt does not use home O2 GERD Omeprazole DVT prophylaxis: Heparin subQ Ppi prophylaxis: Omeprazole Ongoing need: Sepsis and bacteremia-need IV antibiotics, also need close blood pressure monitoring as well as renal function electrolytes monitoring due to ARIANNA. Quality Stroke Does the patient have a stroke diagnosis?: No Reason for No Anti-thrombotic by Day Two: N/A - Med Ordered VTE Prior VTE?: No VTE Risk Level:: Medical - moderate - high VTE Device Contraindication: N/A - Device Ordered VTE Drug Contraindication: N/A - Med Ordered
[2024-09-15] MEDS: Cyanocobalamin (Vitamin B-12) 1,000 MCG TABLET 1000 MCG PO (18:58)
[2024-09-15] MEDS: Potassium Chloride Packet 20 MEQ PACKET PO (18:58)
[2024-09-15] MEDS: Folic Acid 1 MG TABLET PO (18:58)
[2024-09-15] MEDS: Clopidogrel Bisulfate 75 MG TABLET PO (18:58)
[2024-09-15 20:44] LABS: Glucose, Whole Blood 201 mg/dL (60-115)
[2024-09-15] MEDS: Sennosides 8.6 MG TABLET 17.2 MG PO (21:04)
[2024-09-15] MEDS: chlorproMAZINE HCl 25 MG TABLET 50 MG PO (21:04)
[2024-09-15] MEDS: Ferrous Sulfate 324 MG TABLET.DR PO (21:04)
[2024-09-15] MEDS: 0.9 % Sodium Chloride Flush 3 ML SYRINGE IVFLUSH (21:07)
[2024-09-15] MEDS: Insulin Glargine,Hum.rec.anlog 100 UNIT/ML 10 ML VIAL 30 UNIT SUBCUT (21:07)
[2024-09-15] MEDS: traMADoL HCL 50 MG TABLET PO (21:23)
[2024-09-16] VITALS (13 sets, daily range): BP systolic 117–168; BP diastolic 64–82; PULSE 71–100; RESP 16–20; TEMP 36.1–37.6; O2SAT 82–99; BMI 31.4
[2024-09-16] MEDS: cefTRIAXone sodium 2 GM VIAL IVPUSH ×2 (00:23→22:55)
[2024-09-16] MEDS: Heparin Sodium,Porcine 5,000 UNIT/ML VIAL 5000 UNIT SUBCUT ×3 (00:23→23:00)
[2024-09-16] MEDS: Omeprazole 20 MG CAPSULE.DR PO (06:15)
[2024-09-16 07:19] LABS: Glucose, Whole Blood 179 mg/dL (60-115)
[2024-09-16] MEDS: Cholecalciferol (Vitamin D3) 25 MCG TABLET 125 MCG PO (08:53)
[2024-09-16] MEDS: carvediloL 25 MG TABLET PO ×2 (08:54→21:13)
[2024-09-16] MEDS: Clopidogrel Bisulfate 75 MG TABLET PO (08:54)
[2024-09-16] MEDS: Ferrous Sulfate 324 MG TABLET.DR PO ×2 (08:54→21:13)
[2024-09-16] MEDS: Aspirin Enteric Coated 81 MG TABLET.DR PO (08:54)
[2024-09-16] MEDS: chlorproMAZINE HCl 25 MG TABLET 50 MG PO ×3 (08:54→21:13)
[2024-09-16] MEDS: amLODIPine Besylate 5 MG TABLET PO (08:54)
[2024-09-16] MEDS: Cyanocobalamin (Vitamin B-12) 1,000 MCG TABLET 1000 MCG PO (08:54)
[2024-09-16] MEDS: Ascorbic Acid 500 MG TABLET PO (08:54)
[2024-09-16] MEDS: Atorvastatin Calcium 80 MG TABLET PO (08:55)
[2024-09-16] MEDS: Folic Acid 1 MG TABLET PO (08:55)
[2024-09-16] MEDS: Insulin Lispro 100 UNIT/ML 3 ML VIAL SUBCUT ×4 (09:01→21:14)
[2024-09-16] MEDS: Acetaminophen 325 MG TABLET 650 MG PO ×2 (09:01→22:55)
[2024-09-16] MEDS: 0.9 % Sodium Chloride Flush 3 ML SYRINGE IVFLUSH ×3 (09:02→21:15)
[2024-09-16 10:46] LABS: Anion Gap 11 (12-20); Blood Urea Nitrogen 13 mg/dL (9-16); Calcium 8.3 mg/dL (8.4-10.2); Carbon Dioxide 22 mmol/L (22-29); Chloride 104 mmol/L (96-108); Creatinine Clr Calc Pharmacy 64.9; Estimated Glomerular Filt Rate 58; Glucose Random 257 mg/dL (60-115); Potassium 2.9 mmol/L (3.3-5.1); Sodium 134 mmol/L (135-145)
[2024-09-16 11:11] LABS: Glucose, Whole Blood 199 mg/dL (60-115)
--- NOTE | 2024-09-16 11:12 | MHC.CM.PN ---
Per ROUNDS discussion, Patient is not yet medically cleared for dc (still Bacteremic/cultures pending); PT is recommending home with services and CM will continue to follow.
[2024-09-16 16:11] LABS: Glucose, Whole Blood 232 mg/dL (60-115)
--- NOTE | 2024-09-16 16:31 | HO.PM.IMPN ---
Subjective Subjective Date of Service: 09/16/24 Interval History: uti/bactermia Review of Systems seem improving denies any chest pain or sob dizziness improving Physical Exam Vital Signs: Vital Signs: Last Vital Signs Temp 97.6 F 09/16/24 15:04 Pulse 75 09/16/24 15:04 Resp 18 09/16/24 15:04 BP 146/64 H 09/16/24 15:04 Pulse Ox 98 09/16/24 15:04 O2 Del Method Room Air 09/16/24 15:04 BMI result Body Mass Index 31.4 Appearance: Alert.? Oriented X3.? cvs: [id number], [id number] . res: clear to auscultation ,no rhonchii or wheezing abd: no rebound or guarding ,nt, bs present. ext pulses present , no cyanosis . neuro: axo3 , nonfocal. Objective Data Active Medications Acetaminophen (Acetaminophen 325 Mg Tablet) 650 mg PO Q6H PRN PRN Reason: Pain, Mild 1-3,fever,headache Last Admin: 09/16/24 09:01 Dose: 650 mg Documented By: CLEMENCIA Albuterol Sulfate (Albuterol Sulfate (0.083%) 2.5 Mg/3 Ml Vial.Neb) 2.5 mg INHALE Q4H PRN PRN Reason: Bronchospasm Albuterol Sulfate (Albuterol Sulfate 90 Mcg 8 Gm Inhaler) 2 puff INHALE Q4H PRN PRN Reason: Bronchospasm Albuterol/Ipratropium (Albuterol/Iprat 2.5/0.5mg 3 Ml Ampul.Neb) 3 ml INHALE Q4H PRN PRN Reason: Shortness of Breath/Wheezing Amlodipine Besylate (Amlodipine Besylate 5 Mg Tablet) 5 mg PO DAILY [facility]; Protocol Last Admin: 09/16/24 08:54 Dose: 5 mg Documented By: CLEMENCIA Ascorbic Acid (Ascorbic Acid 500 Mg Tablet) 500 mg PO DAILY [facility] Last Admin: 09/16/24 08:54 Dose: 500 mg Documented By: CLEMENCIA Aspirin (Aspirin Enteric Coated 81 Mg Tablet.) 81 mg PO DAILY [facility] Last Admin: 09/16/24 08:54 Dose: 81 mg Documented By: CLEMENCIA Atorvastatin Calcium (Atorvastatin Calcium 80 Mg Tablet) 80 mg PO DAILY [facility] Last Admin: 09/16/24 08:55 Dose: 80 mg Documented By: CLEMENCIA Calcium Carbonate (Calcium Carbonate 750 Mg Tab.Chew) 750 mg PO Q4H PRN PRN Reason: Heartburn Carvedilol (Carvedilol 25 Mg Tablet) 25 mg PO BID [facility]; Protocol Last Admin: 09/16/24 08:54 Dose: 25 mg Documented By: CLEMENCIA Ceftriaxone Sodium (Ceftriaxone Sodium 2 Gm Vial) 2 gm IVPUSH Q24H [facility] Last Admin: 09/16/24 00:23 Dose: 2 gm Documented By: COLE Chlorpromazine HCl (Chlorpromazine Hcl 25 Mg Tablet) 50 mg PO TID [facility] Last Admin: 09/16/24 08:54 Dose: 50 mg Documented By: CLEMENCIA Clopidogrel Bisulfate (Clopidogrel Bisulfate 75 Mg Tablet) 75 mg PO DAILY [facility] Last Admin: 09/16/24 08:54 Dose: 75 mg Documented By: CLEMENCIA Cyanocobalamin (Cyanocobalamin (Vitamin B-12) 1,000 Mcg Tablet) 1,000 mcg PO DAILY [facility] Last Admin: 09/16/24 08:54 Dose: 1,000 mcg Documented By: CLEMENCIA Dextrose (Dextrose 50 % 25 Gm/50 Ml Syringe) 25 gm IVPUSH Q15M PRN; Protocol PRN Reason: per Hypoglycemia Standing Ord. Ferrous Sulfate (Ferrous Sulfate 324 Mg Tablet.Dr) 324 mg PO BID [facility] Last Admin: 09/16/24 08:54 Dose: 324 mg Documented By: CLEMENCIA Folic Acid (Folic Acid 1 Mg Tablet) 1 mg PO DAILY [facility] Last Admin: 09/16/24 08:55 Dose: 1 mg Documented By: CLEMENCIA Glucose (Glucose Gel 15 Gm Gel..Gram.) 15 gm PO Q15M PRN; Protocol PRN Reason: per Hypoglycemia Standing Ord. Heparin Sodium (Porcine) (Heparin Sodium,Porcine 5,000 Unit/Ml Vial) 5,000 unit SUBCUT Q12H [facility] Last Admin: 09/16/24 11:44 Dose: 5,000 unit Documented By: CLEMENCIA Hydralazine HCl (Hydralazine Hcl 20 Mg/Ml Vial) 10 mg IVPUSH Q6H PRN; Protocol PRN Reason: SBP > 160 Last Admin: 09/15/24 04:58 Dose: 10 mg Documented By: MONTEKRISHAN Insulin Glargine (Insulin Glargine,Hum.Rec.Anlog 100 Unit/Ml 10 Ml Vial) 30 unit SUBCUT BEDTIME [facility] Last Admin: 09/15/24 21:07 Dose: 30 unit Documented By: COLE Insulin Human Lispro (Insulin Lispro 100 Unit/Ml 3 Ml Vial) 0 unit SUBCUT QIDACHS [facility]; Protocol Last Admin: 09/16/24 11:44 Dose: 4 unit Documented By: CLEMENCIA Magnesium Hydroxide (Milk Of Magnesia 30 Ml Oral.Susp) 30 ml PO DAILY PRN PRN Reason: Constipation Melatonin (Melatonin 3 Mg Tablet) 6 mg PO BEDTIME PRN PRN Reason: Insomnia Non-Formulary Medication (Dulaglutide [Trulicity]) 1.5 mg SUBCUT MYERS@0900 [facility] Omeprazole (Omeprazole 20 Mg Capsule.Dr) 20 mg PO DAILY@0630 [facility] Last Admin: 09/16/24 06:15 Dose: 20 mg Documented By: COLE Ondansetron HCl (Ondansetron Hcl 4 Mg/2 Ml Vial) 4 mg IVPUSH Q8H PRN PRN Reason: Nausea and Vomiting Polyethylene Glycol (Polyethylene Glycol 3350 17 Gm Powd.Pack) 17 gm PO DAILY PRN PRN Reason: Constipation Senna (Sennosides 8.6 Mg Tablet) 17.2 mg PO BEDTIME [facility] Last Admin: 09/15/24 21:04 Dose: 17.2 mg Documented By: COLE Sodium Chloride (0.9 % Sodium Chloride Flush 3 Ml Syringe) 3 ml IVFLUSH QSHIFT [facility] Last Admin: 09/16/24 09:02 Dose: 3 ml Documented By: CLEMENCIA Vitamin D (Cholecalciferol (Vitamin D3) 25 Mcg Tablet) 125 mcg PO DAILY [facility] Last Admin: 09/16/24 08:53 Dose: 125 mcg Documented By: CLEMENCIA Labs 09/15/24 09:16 09/16/24 10:13 Labs: Laboratory Results - last 24 hr 09/15/24 09/15/24 09/16/24 16:36 20:37 07:12 Anion Gap Estim Creat Clear Calc Estimated GFR POC Glucose 207 H 201 H 179 H Random Glucose Calcium 09/16/24 09/16/24 09/16/24 10:13 11:05 16:07 Anion Gap 11 L Estim Creat Clear Calc 64.9 Estimated GFR 58 POC Glucose 199 H 232 H Random Glucose 257 H Calcium 8.3 L D Microbiology Microbiology Results: Microbiology 09/14/24 Unknown Urine Culture - Final Urine clean catch - Clean Catch Midstream Escherichia coli 09/14/24 22:23 Blood Culture - Preliminary Blood - Venous Gram negative telly 09/14/24 22:23 Blood Culture - Preliminary Blood - Venous Gram negative telly Assessment and Plan (1) ARIANNA (acute kidney injury): Status: Acute Assessment and Plan: 68-year-old female Cambodian speaking with past medical history CVA X2, speech impediment, hypertension, insulin-dependent diabetes type 2, peripheral vascular disease, osteoarthritis bilateral knees with history of cortisone injection, heart murmur/ septal hypertrophy, asthma, CAD, ASHOK, legally blind, GERD presents to the emergency room via ambulance [facility] being at [facility] and noting that her Dexcom indicated a very high blood sugar and patient was reporting dizziness. Incidentally patient has evidence of UTI and was started on ceftriaxone and IV fluids per sepsis protocol. Lactic acid elevated, no leukocytosis but patient tachycardic with fever on arrival. Sepsis sec to uti,gram negative bacteremia acute lactic acidosis-improved. continue iv ceftriaxone. ARIANNA/ hyponatremia -improving given ivf,Avoid nephrotoxic drugs including NSAIDs,Hold losartan Hypokalemia: repelted moniter bmp. Dizziness Orthostatics negatives No report of syncope or near syncopal events May be attributed to urinary tract infection but patient reports dizziness for the last 4 months Pt denies hx of vertigo, reports hx of [address] negative for any acute findings PT eval. History of CVA with noted speech impediment Speech therapy eval ordered, speech impediment not new Patient reports her tongue is ?weak? Head CT negative for any acute findings. Hyperglycemia/IDDM II: lantus 30 units qpm ,sliding scle coverage hba1c 11.7 Diabetic diet HTN continue on Coreg, amlodipine,hold losaratn due to arianna Murmur on exam Last echo 06/13 - EF >70%, no valvular issues noted but abnormal hypertrophy of the septum indicated seems euvolemic Denies any chest pain or shortness of breath Further workup outpatient. Asthma, chronic - no hypoxia Duo nebs p.r.n. Pt does not use home O2 GERD Omeprazole DVT prophylaxis: Heparin subQ Ppi prophylaxis: Omeprazole Ongoing need: Sepsis and bacteremia-need IV antibiotics, also need close blood pressure monitoring as well as renal function electrolytes monitoring due to ARIANNA. Quality Stroke Does the patient have a stroke diagnosis?: No Reason for No Anti-thrombotic by Day Two: N/A - Med Ordered VTE Prior VTE?: No VTE Risk Level:: Medical - moderate - high VTE Device Contraindication: N/A - Device Ordered VTE Drug Contraindication: N/A - Med Ordered
--- NOTE | 2024-09-16 16:36 | P.CDIM_ITS ---
PROVIDER RESPONSE TEXT: To clarify, the appropriate diagnosis supported by the clinical indicators: Mild intermittent QUERY TEXT: PHYSICIAN'S DOCUMENTATION REQUEST Date of Query: 09/16/2024 08:14 AM EDT Patient Name: Lanny Valderrama Admit Date: 09/15/2024 Dear Cecil Cruz MD, A review of the medical record indicates additional documentation may be needed. Please review below and update the documentation accordingly. Clinical indicators: Progress notes 09/15/24: Asthma, chronic No hypoxia Albuterol 3ml inhale Q4H prn Based on the above, please clarify in the Progress Notes further specificity regarding the type of asthma: Mild intermittent Mild persistent Moderate persistent Severe persistent Exercise induced Other (explain) Clinically unable to determine (explain) Thank you, Libra Lynn, CCS, CDIS Use of terms such as suspected, likely, concern for, or probable (associated with a specific diagnosis that is being evaluated, monitored, or treated as if it exists) are acceptable and can be coded in the inpatient setting, when documented at the time of discharge. Please use your independent medical judgment in providing your response. THIS QUERY IS PART OF THE PERMANENT MEDICAL RECORD
[2024-09-16] MEDS: Potassium Chloride ER 20 MEQ TAB.ER.PRT 40 MEQ PO (16:40)
[2024-09-16 20:55] LABS: Glucose, Whole Blood 255 mg/dL (60-115)
[2024-09-16] MEDS: Sennosides 8.6 MG TABLET 17.2 MG PO (21:14)
[2024-09-16] MEDS: Insulin Glargine,Hum.rec.anlog 100 UNIT/ML 10 ML VIAL 32 UNIT SUBCUT (21:14)
[2024-09-17] VITALS (11 sets, daily range): BP systolic 142–198; BP diastolic 66–85; PULSE 78–94; RESP 16–18; TEMP 36.1–36.7; O2SAT 95–99; BMI 31.9
[2024-09-17] MEDS: Omeprazole 20 MG CAPSULE.DR PO (06:07)
[2024-09-17 07:35] LABS: Glucose, Whole Blood 101 mg/dL (60-115)
[2024-09-17] MEDS: Aspirin Enteric Coated 81 MG TABLET.DR PO (08:12)
[2024-09-17] MEDS: chlorproMAZINE HCl 25 MG TABLET 50 MG PO ×3 (08:12→21:56)
[2024-09-17] MEDS: Cyanocobalamin (Vitamin B-12) 1,000 MCG TABLET 1000 MCG PO (08:12)
[2024-09-17] MEDS: Folic Acid 1 MG TABLET PO (08:12)
[2024-09-17] MEDS: Clopidogrel Bisulfate 75 MG TABLET PO (08:12)
[2024-09-17] MEDS: Cholecalciferol (Vitamin D3) 25 MCG TABLET 125 MCG PO (08:12)
[2024-09-17] MEDS: Ferrous Sulfate 324 MG TABLET.DR PO ×2 (08:12→21:55)
[2024-09-17] MEDS: Ascorbic Acid 500 MG TABLET PO (08:13)
[2024-09-17] MEDS: amLODIPine Besylate 5 MG TABLET PO (08:13)
[2024-09-17] MEDS: carvediloL 25 MG TABLET PO ×2 (08:13→21:56)
[2024-09-17] MEDS: Atorvastatin Calcium 80 MG TABLET PO (08:13)
[2024-09-17] MEDS: traMADoL HCL 50 MG TABLET PO (08:13)
[2024-09-17] MEDS: 0.9 % Sodium Chloride Flush 3 ML SYRINGE IVFLUSH ×3 (08:16→22:09)
[2024-09-17 08:18] LABS: Anion Gap 13 (12-20); Blood Urea Nitrogen 12 mg/dL (9-16); Calcium 8.8 mg/dL (8.4-10.2); Carbon Dioxide 24 mmol/L (22-29); Chloride 107 mmol/L (96-108); Creatinine Clr Calc Pharmacy 62.8; Estimated Glomerular Filt Rate 55; Glucose Random 110 mg/dL (60-115); Magnesium 1.7 mg/dL (1.6-2.6); Potassium 3.3 mmol/L (3.3-5.1); Sodium 141 mmol/L (135-145)
--- NOTE | 2024-09-17 11:14 | P.PNIM_ITS ---
Subjective Subjective Date of Service: 09/17/24 Interval History: uti/bactermia Review of Systems no new c/o Review of Systems: Yes all other systems are reviewed and are negative Physical Exam 2 Vital Signs: Vital Signs: Last Vital Signs Temp 97.8 F 09/17/24 07:59 Pulse 94 09/17/24 08:10 Resp 18 09/17/24 07:59 BP 180/77 H 09/17/24 08:10 Pulse Ox 96 09/17/24 07:59 O2 Del Method Room Air 09/17/24 07:59 BMI result Body Mass Index 31.9 Appearance: Alert.? Oriented X3.? cvs: rrr, [id number] . res: clear to auscultation ,no rhonchii or wheezing abd: no rebound or guarding ,nt, bs present. ext pulses present , no cyanosis . neuro: axo3 , nonfocal. Objective Data Active Medications Acetaminophen (Acetaminophen 325 Mg Tablet) 650 mg PO Q6H PRN PRN Reason: Pain, Mild 1-3,fever,headache Last Admin: 09/16/24 22:55 Dose: 650 mg Documented By: JONES Albuterol Sulfate (Albuterol Sulfate (0.083%) 2.5 Mg/3 Ml Vial.Neb) 2.5 mg INHALE Q4H PRN PRN Reason: Bronchospasm Albuterol Sulfate (Albuterol Sulfate 90 Mcg 8 Gm Inhaler) 2 puff INHALE Q4H PRN PRN Reason: Bronchospasm Albuterol/Ipratropium (Albuterol/Iprat 2.5/0.5mg 3 Ml Ampul.Neb) 3 ml INHALE Q4H PRN PRN Reason: Shortness of Breath/Wheezing Amlodipine Besylate (Amlodipine Besylate 5 Mg Tablet) 5 mg PO DAILY [facility]; Protocol Last Admin: 09/17/24 08:13 Dose: 5 mg Documented By: CLEMENCIA Amlodipine Besylate (Amlodipine Besylate 2.5 Mg Tablet) 2.5 mg PO BEDTIME [facility]; Protocol Ascorbic Acid (Ascorbic Acid 500 Mg Tablet) 500 mg PO DAILY [facility] Last Admin: 09/17/24 08:13 Dose: 500 mg Documented By: CLEMENCIA Aspirin (Aspirin Enteric Coated 81 Mg Tablet.) 81 mg PO DAILY [facility] Last Admin: 09/17/24 08:12 Dose: 81 mg Documented By: CLEMENCIA Atorvastatin Calcium (Atorvastatin Calcium 80 Mg Tablet) 80 mg PO DAILY [facility] Last Admin: 09/17/24 08:13 Dose: 80 mg Documented By: CLEMENCIA Calcium Carbonate (Calcium Carbonate 750 Mg Tab.Chew) 750 mg PO Q4H PRN PRN Reason: Heartburn Carvedilol (Carvedilol 25 Mg Tablet) 25 mg PO BID [facility]; Protocol Last Admin: 09/17/24 08:13 Dose: 25 mg Documented By: CLEMENCIA Ceftriaxone Sodium (Ceftriaxone Sodium 2 Gm Vial) 2 gm IVPUSH Q24H [facility] Last Admin: 09/16/24 22:55 Dose: 2 gm Documented By: JONES Chlorpromazine HCl (Chlorpromazine Hcl 25 Mg Tablet) 50 mg PO TID [facility] Last Admin: 09/17/24 08:12 Dose: 50 mg Documented By: CLEMENCIA Clopidogrel Bisulfate (Clopidogrel Bisulfate 75 Mg Tablet) 75 mg PO DAILY [facility] Last Admin: 09/17/24 08:12 Dose: 75 mg Documented By: CLEMENCIA Cyanocobalamin (Cyanocobalamin (Vitamin B-12) 1,000 Mcg Tablet) 1,000 mcg PO DAILY [facility] Last Admin: 09/17/24 08:12 Dose: 1,000 mcg Documented By: CLEMENCIA Dextrose (Dextrose 50 % 25 Gm/50 Ml Syringe) 25 gm IVPUSH Q15M PRN; Protocol PRN Reason: per Hypoglycemia Standing Ord. Ferrous Sulfate (Ferrous Sulfate 324 Mg Tablet.) 324 mg PO BID [facility] Last Admin: 09/17/24 08:12 Dose: 324 mg Documented By: CLEMENCIA Folic Acid (Folic Acid 1 Mg Tablet) 1 mg PO DAILY [facility] Last Admin: 09/17/24 08:12 Dose: 1 mg Documented By: CLEMENCIA Glucose (Glucose Gel 15 Gm Gel..Gram.) 15 gm PO Q15M PRN; Protocol PRN Reason: per Hypoglycemia Standing Ord. Heparin Sodium (Porcine) (Heparin Sodium,Porcine 5,000 Unit/Ml Vial) 5,000 unit SUBCUT Q12H [facility] Last Admin: 09/16/24 23:00 Dose: 5,000 unit Documented By: JONES Hydralazine HCl (Hydralazine Hcl 20 Mg/Ml Vial) 10 mg IVPUSH Q6H PRN; Protocol PRN Reason: SBP > 160 Last Admin: 09/15/24 04:58 Dose: 10 mg Documented By: JOANNA Insulin Glargine (Insulin Glargine,Hum.Rec.Anlog 100 Unit/Ml 10 Ml Vial) 32 unit SUBCUT BEDTIME [facility] Last Admin: 09/16/24 21:14 Dose: 32 unit Documented By: JONES Insulin Human Lispro (Insulin Lispro 100 Unit/Ml 3 Ml Vial) 0 unit SUBCUT QIDACHS [facility]; Protocol Last Admin: 09/17/24 07:43 Dose: Not Given Documented By: CLEMENCIA Non-Admin Reason: No Insulin Coverage Magnesium Hydroxide (Milk Of Magnesia 30 Ml Oral.Susp) 30 ml PO DAILY PRN PRN Reason: Constipation Melatonin (Melatonin 3 Mg Tablet) 6 mg PO BEDTIME PRN PRN Reason: Insomnia Non-Formulary Medication (Dulaglutide [Trulicity]) 1.5 mg SUBCUT MYERS@0900 [facility] Omeprazole (Omeprazole 20 Mg Capsule.Dr) 20 mg PO DAILY@0630 [facility] Last Admin: 09/17/24 06:07 Dose: 20 mg Documented By: JONES Ondansetron HCl (Ondansetron Hcl 4 Mg/2 Ml Vial) 4 mg IVPUSH Q8H PRN PRN Reason: Nausea and Vomiting Polyethylene Glycol (Polyethylene Glycol 3350 17 Gm Powd.Pack) 17 gm PO DAILY PRN PRN Reason: Constipation Senna (Sennosides 8.6 Mg Tablet) 17.2 mg PO BEDTIME [facility] Last Admin: 09/16/24 21:14 Dose: 17.2 mg Documented By: JONES Sodium Chloride (0.9 % Sodium Chloride Flush 3 Ml Syringe) [facility] Last Admin: 09/17/24 08:16 Dose: 3 ml Documented By: CLEMENCIA Vitamin D (Cholecalciferol (Vitamin D3) 25 Mcg Tablet) 125 mcg PO DAILY [facility] Last Admin: 09/17/24 08:12 Dose: 125 mcg Documented By: CLEMENCIA Labs 09/15/24 09:16 09/17/24 07:58 Labs: Laboratory Results - last 24 hr 09/16/24 09/16/24 09/17/24 16:07 20:51 07:23 Anion Gap Estim Creat Clear Calc Estimated GFR POC Glucose 232 H 255 H 101 Random Glucose Calcium Magnesium 09/17/24 07:58 Anion Gap 13 Estim Creat Clear Calc 62.8 Estimated GFR 55 POC Glucose Random Glucose 110 Calcium 8.8 D Magnesium 1.7 Microbiology Microbiology Results: Microbiology 09/14/24 22:23 Blood Culture - Final Blood - Venous Escherichia coli 09/14/24 22:23 Blood Culture - Final Blood - Venous Escherichia coli 09/14/24 Unknown Urine Culture - Final Urine clean catch - Clean Catch Midstream Escherichia coli Assessment and Plan (1) ARIANNA (acute kidney injury): Status: Acute Assessment and Plan: 68-year-old female Frisian speaking with past medical history CVA X2, speech impediment, hypertension, insulin-dependent diabetes type 2, peripheral vascular disease, osteoarthritis bilateral knees with history of cortisone injection, heart murmur/ septal hypertrophy, asthma, CAD, [place], legally blind, GERD presents to the emergency room via ambulance after being [facility] and noting that her Dexcom indicated a very high blood sugar and patient was reporting dizziness. Incidentally patient has evidence of UTI and was started on ceftriaxone and IV fluids per sepsis protocol. Lactic acid elevated, no leukocytosis but patient tachycardic with fever on arrival. Sepsis sec to uti,gram negative bacteremia acute lactic acidosis-improved. continue iv ceftriaxone. ARIANNA/ hyponatremia -improving given ivf,Avoid nephrotoxic drugs including NSAIDs,Hold losartan Hypokalemia: repelted moniter bmp. Dizziness Orthostatics negatives No report of syncope or near syncopal events May be attributed to urinary tract infection but patient reports dizziness for the last 4 months Pt denies hx of vertigo, reports hx of [address] negative for any acute findings PT eval. History of CVA with noted speech impediment Speech therapy eval ordered, speech impediment not new Patient reports her tongue is ?weak? Head CT negative for any acute findings. Hyperglycemia/IDDM II: lantus 30 units qpm ,sliding scle coverage hba1c 11.7 Diabetic diet HTN continue on Coreg, amlodipine,hold losaratn due to arianna Murmur on exam Last echo 06/13 - EF >70%, no valvular issues noted but abnormal hypertrophy of the septum indicated seems euvolemic Denies any chest pain or shortness of breath Further workup outpatient per pcp in needed. Asthma, chronic - no hypoxia Duo nebs p.r.n. Pt does not use home O2 GERD Omeprazole DVT prophylaxis: Heparin subQ Ppi prophylaxis: Omeprazole Ongoing need: Sepsis and bacteremia-need IV antibiotics, also need close blood pressure monitoring as well as renal function electrolytes monitoring due to ARIANNA. Quality Stroke Does the patient have a stroke diagnosis?: No Reason for No Anti-thrombotic by Day Two: N/A - Med Ordered VTE Prior VTE?: No VTE Risk Level:: Medical - moderate - high VTE Device Contraindication: N/A - Device Ordered VTE Drug Contraindication: N/A - Med Ordered
[2024-09-17 11:36] LABS: Glucose, Whole Blood 242 mg/dL (60-115)
[2024-09-17] MEDS: Insulin Lispro 100 UNIT/ML 3 ML VIAL SUBCUT ×3 (13:15→21:55)
[2024-09-17] MEDS: Heparin Sodium,Porcine 5,000 UNIT/ML VIAL 5000 UNIT SUBCUT (13:16)
[2024-09-17 16:07] LABS: Glucose, Whole Blood 200 mg/dL (60-115)
[2024-09-17 20:46] LABS: Glucose, Whole Blood 133 mg/dL (60-115)
[2024-09-17] MEDS: Insulin Glargine,Hum.rec.anlog 100 UNIT/ML 10 ML VIAL 32 UNIT SUBCUT (21:54)
[2024-09-17] MEDS: Sennosides 8.6 MG TABLET 17.2 MG PO (21:55)
[2024-09-17] MEDS: amLODIPine Besylate 2.5 MG TABLET PO (21:58)
[2024-09-17] MEDS: Acetaminophen 325 MG TABLET 650 MG PO (22:07)
[2024-09-17] MEDS: cefTRIAXone sodium 2 GM VIAL IVPUSH (22:09)
--- NOTE | 2024-09-17 23:48 | W.PM.IDCN ---
History of Present Illness Data of Consult Service Date: 09/17/24 Requesting physician: Cecil Cruz Primary Care Provider: Erick Villanueva MD HPI Reason for consult: chills, E coli bacteremia She presents with chills as well as mental status changes and weakness. She hs E coli bacteremia. She has right hemiparesis ,had previously. [facility] Past Medical History Medical History (Updated 09/17/24 @ 23:54 by Cintia Davidson MD) Bacteremia Primary osteoarthritis, right shoulder CVA (cerebral vascular accident) Bleeding hemorrhoids Carpal tunnel syndrome, bilateral Internal and external hemorrhoids without complication Diverticulosis Rectal bleed Varicose veins of both lower extremities with pain Hx pulmonary embolism Rectal bleeding Obesity (BMI 30-39.9) Overactive bladder Migraine GERD without esophagitis Allergic rhinitis Fibromyalgia Vitamin B12 deficiency Asthma Bilateral primary osteoarthritis of knee Pure hypercholesterolemia Benign essential hypertension Bilateral lower extremity edema Mammogram abnormal Intertrigo Breast nodule Goiter Vitamin D deficiency HLD (hyperlipidemia) T2DM (type 2 diabetes mellitus) Arthritis Breast pain, right Calcific tendinitis of right hip Right lumbar radiculopathy Right hip pain Low back pain Family History Family History Father Hypertension Myocardial infarction Stroke Mother Hypertension Diabetes Surgical History Surgical History Hx of breast surgery History of colonoscopy History of mammogram History of incision and drainage Hx of cataract extraction Hx of cholecystectomy Hx of tubal ligation Hx of eye surgery History of tonsillectomy and adenoidectomy Social History Social History Household Members: Spouse and Children Housing: Homeless Are you a primary childcare center administrator to a significant other at home: No Do you presently have visiting nurse or other home services: No Alcohol intake: never Patient Tobacco Use Status: Never used Tobacco e-Cigarette/Vaping Use: Never Used Second Hand Smoke Exposure: No service: No Current occupational status: disabled Cognitive needs: No Hearing needs: No Vision needs: Yes (Glasses) Travel History Ebola Risk: Travel/Contact With Anyone From Affected Area/s: No Has Patient Experienced Ebola Symptoms: No Meds Allergies Allergy/AdvReac Type Severity Reaction Status Date / Time Penicillins (PENICILLINS) Allergy Severe SOB, rash, Verified 09/14/24 20:56 itching codeine (CODEINE) Allergy Intermediate RASH SOB Verified 09/14/24 20:56 oxycodone (From PERCOCET) Allergy Intermediate RASH SOB Verified 09/14/24 20:56 kiwi (KIWI) Allergy Mild ITCHY IF Verified 09/14/24 20:56 TOUCHES pineapple (PINEAPPLE) Allergy Mild ITCHY IF Verified 09/14/24 20:56 TOUCHES metformin AdvReac Intermediate dizziness, Verified 09/14/24 20:56 blurred vision Active Medications: Current Medications Acetaminophen (Acetaminophen 325 Mg Tablet) 650 mg PO Q6H PRN PRN Reason: Pain, Mild 1-3,fever,headache Last Admin: 09/17/24 22:07 Dose: 650 mg Albuterol Sulfate (Albuterol Sulfate (0.083%) 2.5 Mg/3 Ml Vial.Neb) 2.5 mg INHALE Q4H PRN PRN Reason: Bronchospasm Albuterol Sulfate (Albuterol Sulfate 90 Mcg 8 Gm Inhaler) 2 puff INHALE Q4H PRN PRN Reason: Bronchospasm Albuterol/Ipratropium (Albuterol/Iprat 2.5/0.5mg 3 Ml Ampul.Neb) 3 ml INHALE Q4H PRN PRN Reason: Shortness of Breath/Wheezing Amlodipine Besylate (Amlodipine Besylate 5 Mg Tablet) 5 mg PO DAILY [facility]; Protocol Last Admin: 09/17/24 08:13 Dose: 5 mg Amlodipine Besylate (Amlodipine Besylate 2.5 Mg Tablet) 2.5 mg PO BEDTIME [facility]; Protocol Last Admin: 09/17/24 21:58 Dose: 2.5 mg Ascorbic Acid (Ascorbic Acid 500 Mg Tablet) 500 mg PO DAILY [facility] Last Admin: 09/17/24 08:13 Dose: 500 mg Aspirin (Aspirin Enteric Coated 81 Mg Tablet.Dr) 81 mg PO DAILY [facility] Last Admin: 09/17/24 08:12 Dose: 81 mg Atorvastatin Calcium (Atorvastatin Calcium 80 Mg Tablet) 80 mg PO DAILY [facility] Last Admin: 09/17/24 08:13 Dose: 80 mg Calcium Carbonate (Calcium Carbonate 750 Mg Tab.Chew) 750 mg PO Q4H PRN PRN Reason: Heartburn Carvedilol (Carvedilol 25 Mg Tablet) 25 mg PO BID [facility]; Protocol Last Admin: 09/17/24 21:56 Dose: 25 mg Ceftriaxone Sodium (Ceftriaxone Sodium 2 Gm Vial) 2 gm IVPUSH Q24H [facility] Last Admin: 09/17/24 22:09 Dose: 2 gm Chlorpromazine HCl (Chlorpromazine Hcl 25 Mg Tablet) 50 mg PO TID [facility] Last Admin: 09/17/24 21:56 Dose: 50 mg Clopidogrel Bisulfate (Clopidogrel Bisulfate 75 Mg Tablet) 75 mg PO DAILY [facility] Last Admin: 09/17/24 08:12 Dose: 75 mg Cyanocobalamin (Cyanocobalamin (Vitamin B-12) 1,000 Mcg Tablet) 1,000 mcg PO DAILY [facility] Last Admin: 09/17/24 08:12 Dose: 1,000 mcg Dextrose (Dextrose 50 % 25 Gm/50 Ml Syringe) 25 gm IVPUSH Q15M PRN; Protocol PRN Reason: per Hypoglycemia Standing Ord. Ferrous Sulfate (Ferrous Sulfate 324 Mg Tablet.) 324 mg PO BID [facility] Last Admin: 09/17/24 21:55 Dose: 324 mg Folic Acid (Folic Acid 1 Mg Tablet) 1 mg PO DAILY [facility] Last Admin: 09/17/24 08:12 Dose: 1 mg Glucose (Glucose Gel 15 Gm Gel..Gram.) 15 gm PO Q15M PRN; Protocol PRN Reason: per Hypoglycemia Standing Ord. Heparin Sodium (Porcine) (Heparin Sodium,Porcine 5,000 Unit/Ml Vial) 5,000 unit SUBCUT Q12H [facility] Last Admin: 09/17/24 13:16 Dose: 5,000 unit Hydralazine HCl (Hydralazine Hcl 20 Mg/Ml Vial) 10 mg IVPUSH Q6H PRN; Protocol PRN Reason: SBP > 160 Last Admin: 09/15/24 04:58 Dose: 10 mg Insulin Glargine (Insulin Glargine,Hum.Rec.Anlog 100 Unit/Ml 10 Ml Vial) 32 unit SUBCUT BEDTIME [facility] Last Admin: 09/17/24 21:54 Dose: 32 unit Insulin Human Lispro (Insulin Lispro 100 Unit/Ml 3 Ml Vial) 0 unit SUBCUT QIDACHS [facility]; Protocol Last Admin: 09/17/24 21:55 Dose: 2 unit Magnesium Hydroxide (Milk Of Magnesia 30 Ml Oral.Susp) 30 ml PO DAILY PRN PRN Reason: Constipation Melatonin (Melatonin 3 Mg Tablet) 6 mg PO BEDTIME PRN PRN Reason: Insomnia Non-Formulary Medication (Dulaglutide [Trulicity]) 1.5 mg SUBCUT MYERS@0900 [facility] Omeprazole (Omeprazole 20 Mg Capsule.Dr) 20 mg PO DAILY@0630 [facility] Last Admin: 09/17/24 06:07 Dose: 20 mg Ondansetron HCl (Ondansetron Hcl 4 Mg/2 Ml Vial) 4 mg IVPUSH Q8H PRN PRN Reason: Nausea and Vomiting Polyethylene Glycol (Polyethylene Glycol 3350 17 Gm Powd.Pack) 17 gm PO DAILY PRN PRN Reason: Constipation Senna (Sennosides 8.6 Mg Tablet) 17.2 mg PO BEDTIME [facility] Last Admin: 09/17/24 21:55 Dose: 17.2 mg Sodium Chloride (0.9 % Sodium Chloride Flush 3 Ml Syringe) 3 ml IVFLUSH QSHIFT [facility] Last Admin: 09/17/24 22:09 Dose: 3 ml Vitamin D (Cholecalciferol (Vitamin D3) 25 Mcg Tablet) 125 mcg PO DAILY [facility] Last Admin: 09/17/24 08:12 Dose: 125 mcg Home Medications ?Medication ?Instructions ?Recorded ?Confirmed ?Last Taken ?Type chlorpromazine 50 mg tablet 50 mg PO TID 02/09/24 09/15/24 09/14/24 History acetaminophen 325 mg tablet 650 mg PO Q4H PRN Pain 09/15/24 09/15/24 Unknown History dulaglutide 1.5 mg/0.5 mL 1.5 mg subcut MYERS@0900 09/15/24 09/15/24 09/14/24 History subcutaneous pen injector (Trulicity) insulin glargine 100 unit/mL (3 30 unit subcut QPM 09/15/24 09/15/24 09/14/24 History mL) subcutaneous pen (Lantus Solostar U-100 Insulin) insulin lispro 100 unit/mL 0 sliding scale dose subcut TIDAC 09/15/24 09/15/24 09/14/24 History subcutaneous solution (Humalog U-100 Insulin) Physical Exam Vital Signs: Vital Signs: Last Vital Signs Temp 97.8 F 09/17/24 19:49 Pulse 85 09/17/24 19:49 Resp 16 09/17/24 19:49 BP 178/74 H 09/17/24 22:50 Pulse Ox 99 09/17/24 19:49 O2 Del Method Room Air 09/17/24 19:49 BMI result Body Mass Index 31.9 Const: General: cooperative HEENT: Head: Yes normal to inspection Face and sinus: Yes normal facial exam Mouth: Normal oral and palatal mucosa present Teeth and gingiva: dentition normal Eyes: General: appearance normal, both eyes and all related structures Pupils: Equal, round and reactive pupils present Resp: Effort & Inspection: normal respiratory effort Cardio: Other: 2/6 MAYRA Rate: regular rate Rhythm: regular rhythm GI: Palpation (GI): Soft to palpation and nontender : Other: right flank pain General: Yes no CVA tenderness Back/Spine/Pelvis: Back: no CVA tenderness Skin: General skin exam: no rashes or lesions noted Neuro: Other: right hemiparesis Cranial nerves: Yes Equal, round and reactive pupils present Extrem: General: Yes normal to inspection Psych: Appearance: grossly normal Results Labs 09/15/24 09:16 09/17/24 07:58 Labs: BMP 09/17/24 07:58 Sodium 141 Potassium 3.3 Chloride 107 Carbon Dioxide 24 BUN 12 Creatinine 1.00 Calcium 8.8 D Microbiology Microbiology Results: Microbiology 09/14/24 22:23 Blood - Venous Blood Culture - Final Escherichia coli 09/14/24 22:23 Blood - Venous Blood Culture - Final Escherichia coli 09/14/24 Unknown Urine clean catch - Clean Catch Midstream Urine Culture - Final Escherichia coli Assessment and Plan (1) Bacteremia: Status: Acute Plan probably urinary source Ceftriaxone continue Check CT abdomen and pelvis evaluate obstruction urinary tract/stone. Probably 14 d total antibiotics including oral.
[2024-09-18] VITALS (7 sets, daily range): BP systolic 109–190; BP diastolic 55–80; PULSE 72–87; RESP 16–18; TEMP 36.8; O2SAT 96–98; BMI 32.0
[2024-09-18] MEDS: Heparin Sodium,Porcine 5,000 UNIT/ML VIAL 5000 UNIT SUBCUT ×2 (01:14→11:46)
[2024-09-18] MEDS: Omeprazole 20 MG CAPSULE.DR PO (05:07)
[2024-09-18 07:03] LABS: Glucose, Whole Blood 148 mg/dL (60-115)
[2024-09-18] MEDS: Insulin Lispro 100 UNIT/ML 3 ML VIAL SUBCUT ×2 (08:09→11:46)
[2024-09-18] MEDS: Acetaminophen 325 MG TABLET 975 MG PO (08:10)
[2024-09-18] MEDS: chlorproMAZINE HCl 25 MG TABLET 50 MG PO (08:10)
[2024-09-18] MEDS: Aspirin Enteric Coated 81 MG TABLET.DR PO (08:11)
[2024-09-18] MEDS: Folic Acid 1 MG TABLET PO (08:11)
[2024-09-18] MEDS: Cholecalciferol (Vitamin D3) 25 MCG TABLET 125 MCG PO (08:11)
[2024-09-18] MEDS: Cyanocobalamin (Vitamin B-12) 1,000 MCG TABLET 1000 MCG PO (08:11)
[2024-09-18] MEDS: amLODIPine Besylate 2.5 MG TABLET 7.5 MG PO (08:11)
[2024-09-18] MEDS: Ferrous Sulfate 324 MG TABLET.DR PO (08:11)
[2024-09-18] MEDS: Clopidogrel Bisulfate 75 MG TABLET PO (08:11)
[2024-09-18] MEDS: carvediloL 25 MG TABLET PO (08:11)
[2024-09-18] MEDS: Atorvastatin Calcium 80 MG TABLET PO (08:11)
[2024-09-18 08:12] LABS: Hematocrit 28.2 % (37.0-47.0); Hemoglobin 9.2 g/dl (12.0-16.0); Mean Corpuscular HGB Conc 32.6 g/dl (31.0-35.0); Mean Corpuscular Hemoglobin 26.2 pg (27.0-33.0); Mean Corpuscular Volume 80.3 fL (80.0-98.0); Mean Platelet Volume 10.1 fL (9.4-12.3); Platelet Count 261 X10*3/uL (160-400); Red Blood Count 3.51 X10*6/uL (4.20-5.50); Red Cell Distribution Width 13.9 % (11.0-16.0); White Blood Count 4.7 X10*3/uL (4.8-10.8)
[2024-09-18] MEDS: 0.9 % Sodium Chloride Flush 3 ML SYRINGE IVFLUSH (08:12)
[2024-09-18] MEDS: Ascorbic Acid 500 MG TABLET PO (08:12)
[2024-09-18 11:30] LABS: Glucose, Whole Blood 132 mg/dL (60-115)
--- NOTE | 2024-09-18 12:19 | P.F2F_ITS ---
Service Date Service Date: 09/18/24 Encounter Date of encounter: 09/18/24 Encounter: htn, dm ,johnna, uti/bacteremia Reasons for Services Signs and symptoms assessed: Any new symptoms fever or abdominal pain or nausea vomiting or any new symptoms. Reason for halfway: CV/CP assess and/or care, diabetic teaching, monitoring of unstable blood sugar, medication management, medication treatment and teach disease management Reason for physical therapy: home safety and mobility, therapeutic exercises, restore joint function, gait/transfer training, assess need for DME, ADL training, energy conservation and other Reason for speech therapy: swallowing impairment, speech impairment and other MD Overseeing Care: Erick Villanueva Homebound: Leaving the home is medically contraindicated at this time without the asist of a device and/or another person due th the listed conditions above and below. Reason homebound: weakness related to hospital stay Homebound supporting statement: Patient is generalised weak post hospitlisation and need help with going to appointments and labs draws as well as PT. Certification: Based on the above findings, I certify that this patient is confined to the home and needs intermittent halfway care, physical therapy and/or speech therapy, or continues to need occupational therapy. The patient is under my care, and I have initiated the establishment of the plan of care. The patient will be followed by a physician who will periodically review the plan of care. Time Spent With Patient Time: Total time managing care of this patient today ____ minutes.
--- NOTE | 2024-09-18 12:20 | P.DS_ITS ---
DS: Providers Provider Date of Service: 09/18/24 Date of admission: 09/14/24 23:40 Date of discharge: 09/18/24 Primary care physician: Erick Villanueva MD Consults: 09/16/24 16:38 Consult to Infectious Diseases Routine Consulting Provider: [facility] Reason for consultation: gram negative bacteremia Has provider been notified: No Attending physician on discharge: Cecil Cruz Discharging clinician: Cecil Cruz DS: Diagnosis Discharge Diagnosis (1) Bacteremia: Status: Acute DS: Summary Hospital Course Hospital Course: HPI:68-year-old female [place] speaking with past medical history CVA X2, speech impediment, hypertension, insulin-dependent diabetes type 2, peripheral vascular disease, osteoarthritis bilateral knees with history of cortisone injection, heart murmur/ septal hypertrophy, asthma, CAD, ASHOK, legally blind, GERD presents to ED after being brought in by ambulance from [facility] for high BG level recorded on pt's dexcom and dizziness. Patient states she has been feeling dizzy for the last 4 months. Patient denies any issues with hypoglycemia or thyroid abnormalities. Patient does report recent burning sensation with urination only. Patient denies any diarrhea. Patient is not having any chest pain or shortness of breath at rest or with exertion. Patient denies any recent falls or injury. Patient denies any current open wounds. Work up in ED reveals hyperglycemia, no DKA as CO2 24, gap is closed, UTI with positive UA and HTN. Pt underwent sepsis protocol as pt was febrile 100.4, reported chills, was tachy and has elevated LA of 2.5. Pt was not hypoxic on arrival. UA positive for +2 protein, greater than 1000 glucose, small amount of heme, negative for nitrites positive for moderate leukocyte esterase and white blood cells greater than 50 with minimal squamous epithelial cells. Bacteria +1. Patient was started on ceftriaxone in the ED and this will continue. Pt is reporting a speech impediment that is not new and pt reports her tongue is weak . Pt is reporting issues with swallowing but is nonspecific with description when asked about overall symptoms. Initially emergency department did a CT of the head for suspicion for stroke and that is CT of the head is negative for any acute findings. Pt does have a holosystolic murmur III/ and pt states she was told about this murmur since she was 14 yoa. Last echo 06/13 and noted EF with severe septal asymmetric hypertrophy but no obvious valvular disorder. BNP pending. Patient presents euvolemic. 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 Rudolph. Will await BNP results and if abnormal can consider echocardiogram. Hospital course: 68-year-old female [place] speaking with past medical history CVA X2, speech impediment, hypertension, insulin-dependent diabetes type 2, peripheral vascular disease, osteoarthritis bilateral knees with history of cortisone injection, heart murmur/ septal hypertrophy, asthma, CAD, ASHOK, legally blind, GERD presents to the emergency room via ambulance after being at [facility] and noting that her Dexcom indicated a very high blood sugar and patient was reporting dizziness. Incidentally patient has evidence of UTI and was started on ceftriaxone and IV fluids per sepsis protocol. Lactic acid elevated, no leukocytosis but patient tachycardic with fever on arrival. Sepsis sec to uti,gram negative bacteremia acute lactic acidosis-improved. continue iv ceftriaxone. ARIANNA/ hyponatremia -improving given ivf,Avoid nephrotoxic drugs including NSAIDs,Hold losartan. Hypokalemia: repelted moniter bmp. Dizziness/generalised weakness -likely in steting of uti/electrolytic abnormalities:Orthostatics negatives No report of syncope or near syncopal events May be attributed to urinary tract infection but patient reports dizziness for the last 4 months Pt denies hx of vertigo, reports hx of [address] negative for any acute findings. Currently asymptomatic. History of CVA with noted speech impediment (reports her tongue is ?weak?) speech impediment not new. Head CT negative for any acute findings. seen by speech -outpatient speech from her PCP . Hyperglycemia/IDDM II: lantus 30 units qpm ,sliding scle coverage Diabetic diet educated. HTN:continue on Coreg, amlodipine,hold losaratn due to arianna Murmur on exam patient and daughter confirmed since [facility]. Last echo 06/13 - EF >70%, no valvular issues noted but abnormal hypertrophy of the septum indicated seems euvolemic Denies any chest pain or shortness of breath Further workup outpatient per pcp in needed. normocytic anemia : baseline h/h is 10 to 11 range currently in 9.2 range Denies any melena or acute bleeding. Monitor CBC outpatient and further workup with PCP outpatient. plan: Patient was encouraged for hydration, hold losartan due to recent ARIANNA, monitor BP outpatient b.i.d. and also monitor BMP in 1 week-if renal function allows, reintroduce losartan outpatient. While patient is off losartan, amlodipine adjusted to 10 mg daily. potassium 10 meq po dialy for 4 days. Complete Ceftin 500 mg p.o. b.i.d. for 14 days. Diabetes with hyperglycemia Lantus adjusted to 32 unit evening time, monitor fingersticks pre meal and use sliding scale as prescribed. Diabetic education given. Above management discussed with the patient and her daughters in detail length- they all understand and in agreement with the above plan, time spent 40 minute, all question answered, staff present during conversation. Time Attestation Total time managing care of this patient today: 40 mintues. Discharge Coordination Time (in mins): 40 min Quality: Safe Use of Opioids Does Pt have an Active Cancer Diagnosis on the Problem List?: No Quality: Stroke Does the patient have a stroke diagnosis?: No Physical Exam Vital Signs: Vital Signs: Last Vital Signs Temp 98.2 F 09/18/24 11:43 Pulse 79 09/18/24 11:43 Resp 18 09/18/24 11:43 BP 131/79 09/18/24 11:43 Pulse Ox 98 09/18/24 11:43 O2 Del Method Room Air 09/18/24 11:43 BMI result Body Mass Index 32.0 Appearance: Alert.? Oriented X3.? cvs: rrr, [id number] . res: clear to auscultation ,no rhonchii or wheezing abd: no rebound or guarding ,nt, bs present. ext pulses present , no cyanosis . neuro: axo3 , nonfocal. DS: Data Data Completed and Pending Labs on day of discharge: Laboratory Results - last 24 hr 09/17/24 09/17/24 09/18/24 16:03 20:38 06:59 WBC RBC Hgb Hct MCV MCH MCHC RDW Plt Count MPV Absolute Nucleated RBC Nucleated RBC % (auto) POC Glucose 200 H 133 H 148 H 09/18/24 09/18/24 08:05 11:27 WBC 4.7 L RBC 3.51 L Hgb 9.2 L Hct 28.2 L MCV 80.3 MCH 26.2 L MCHC 32.6 RDW 13.9 Plt Count 261 D MPV 10.1 Absolute Nucleated RBC 0.000 Nucleated RBC % (auto) 0.0 POC Glucose 132 H Imaging Chest x-ray: My impression: head ct: Impression: No acute intracranial process Discharge Plan Discharge Anticipated Discharge Date/Time: 09/18/24 11:47 Patient Disposition: Home Health Service Discharge Diagnosis: uti and e coli bacteremia , dm with hyperglycemia, arianna Referrals: [facility] [Outside] Erick Villanueva MD [Primary Care Provider, Internal Medicine] - 1 Week Discharge Medications: New cefuroxime axetil 500 mg Tablet 500 mg PO Q12H Qty: 27 0RF potassium chloride 10 mEq capsule, extended release 10 meq PO DAILY Qty: 4 0RF Continued (DME) compression stockings See Rx Instructions .Route .MEDSUPPLY Qty: 2 1RF Rx Instructions: Use daily as directed as needed, strength - medium; length - knee high (DME) FreeStyle Lite Strips Strip See Rx Instructions .Route Qty: 100 11RF Rx Instructions: As directed to test blood sugar three times a day (DME) lancets [FreeStyle Lancets] 28 gauge misc See Rx Instructions .Route Qty: 100 11RF Rx Instructions: As directed test blood sugar three times a day (DME) blood-glucose meter [OneTouch Ultra2 Meter] Kit See Rx Instructions .Route Qty: 1 0RF Rx Instructions: As directed 3x/day (DME) pen needle, diabetic [BD Ultra-Fine Micro Pen Needle] 32 gauge x 1/4 needle See Rx Instructions .ROUTE .MEDSUPPLY Qty: 150 11RF Rx Instructions: 5 times a day as directed - Lantus QD and Humalog QID (DME) pen needle, diabetic [BD Nella 2nd Gen Pen Needle] 32 gauge x 5/32 needle See Rx Instructions .ROUTE .MEDSUPPLY Qty: 1200 3RF Rx Instructions: test 5 times per day albuterol sulfate 2.5 mg /3 mL (0.083 %) solution for nebulization 2.5 mg continuous nebulization Q4-6H PRN (Reason: Bronchospasm) Qty: 180 5RF (DME) lancets 33 gauge misc See Rx Instructions .ROUTE .MEDSUPPLY Qty: 100 11RF Rx Instructions: 5 times per day (DME) Transport wheel chair See Rx Instructions .Route .MEDSUPPLY Qty: 1 0RF Rx Instructions: As directed (DME) OneTouch Ultra Test Strip See Rx Instructions .Route Qty: 100 11RF Rx Instructions: 5 times per day (DME) ROLLATOR See Rx Instructions .Route .MEDSUPPLY Qty: 1 0RF Rx Instructions: As directed cyanocobalamin (vitamin B-12) 1,000 mcg capsule 1,000 mcg PO DAILY 90 Days Qty: 90 3RF folic acid 1 mg tablet 1 mg PO DAILY 90 Days Qty: 90 3RF (DME) WALKER LEG RUBBER TIPS See Rx Instructions .Route .MEDSUPPLY Qty: 2 0RF Rx Instructions: As directed aspirin [Adult Aspirin Regimen] 81 mg tablet,delayed release (DR/EC) 81 mg PO DAILY 90 Days Qty: 90 3RF atorvastatin 80 mg tablet 80 mg PO DAILY Qty: 30 5RF albuterol sulfate [Ventolin HFA] 90 mcg/actuation HFA aerosol inhaler 2 puff inhalation Q4-6H PRN (Reason: Bronchospasm) Qty: 18 5RF gabapentin 400 mg capsule 400 mg PO TID 30 Days Qty: 90 11RF tramadol 50 mg tablet 50 mg PO TID PRN (Reason: pain) 30 Days Qty: 90 0RF pioglitazone 15 mg tablet 15 mg PO DAILY 30 Days Qty: 30 2RF (DME) blood pressure monitor Kit See Rx Instructions .ROUTE .MEDSUPPLY Qty: 1 0RF Rx Instructions: As directed ferrous sulfate 325 mg (65 mg iron) Tablet 325 mg PO BID Qty: 60 5RF insulin lispro [Humalog U-100 Insulin] 100 unit/mL solution 0 sliding scale dose subcut TIDAC Protocol: Insulin Correction Scale Less than or equal to 110 ---- Give (units): 0 111 to 150 Give (units): 0 151 to 200 Give (units): 2 201 to 250 Give (units): 4 251 to 300 Give (units): 6 301 to 350 Give (units): 8 Greater than 350 Give (units): 10 Call MD if Blood Glucose > : 350 Trulicity 1.5 mg/0.5 mL pen injector 1.5 mg subcut MYESR@0900 acetaminophen 325 mg Tablet 650 mg PO Q4H PRN (Reason: Pain) insulin glargine [Lantus Solostar U-100 Insulin] 100 unit/mL (3 mL) insulin pen 32 unit subcut QPM Qty: 15 0RF (DME) LIGHTWEIGHT WHEELCHAIR See Rx Instructions .Route .MEDSUPPLY Qty: 1 0RF Rx Instructions: As directed (DME) LIGHTWEIGHT STANDARD WHEELCHAIR See Rx Instructions .Route .MEDSUPPLY Qty: 1 0RF Rx Instructions: As directed cholecalciferol (vitamin D3) 125 mcg (5,000 unit) capsule 5,000 unit PO DAILY 90 Days Qty: 90 3RF ascorbate calcium (vitamin C) 500 mg tablet 500 mg PO DAILY 90 Days Qty: 90 3RF (DME) blood-glucose meter [FreeStyle [place] Lite] Kit See Rx Instructions .ROUTE .MEDSUPPLY Qty: 1 0RF Rx Instructions: As directed carvedilol [Coreg] 25 mg tablet 25 mg PO BID 90 Days Qty: 180 3RF Rx Instructions: must administer with a meal/food chlorpromazine 50 mg tablet 50 mg PO TID clopidogrel 75 mg tablet 75 mg PO DAILY 90 Days Qty: 90 3RF (DME) FreeStyle Carol 3 Plus Sensor Device See Rx Instructions .ROUTE .MEDSUPPLY Qty: 2 11RF Rx Instructions: As directed every 15 days Changed amlodipine 5 mg tablet 10 mg PO DAILY Qty: 180 2RF Held losartan 100 mg tablet 100 mg PO DAILY 90 Days Qty: 90 3RF Hold Instructions: Resume on 09/26/24. Discharge Orders: Discharge Order (Routine); Ordered 09/18/24 Ordered By: Cecil Cruz Diet: Advance to usual diet Activity on Discharge: As tolerated Stand Alone Forms: Patient Portal Discharge page Print Language: [place] Other Ambulatory Orders: Basic Metabolic Panel (Routine) Timeframe: 1 Week Facility: [facility] - Location: Laboratory Ordered By: Cecil Cruz Complete Blood Count no Diff (Routine) Timeframe: 1 Week Facility: [facility] - Location: Laboratory Ordered By: Cecil Cruz Hemoglobin A1c (Routine) Timeframe: 1 Week Facility: [facility] - Location: Laboratory Ordered By: Cecil Cruz Care Plan Goals: as below. Health Concerns: Patient was encouraged for hydration, hold losartan due to recent ARIANNA, monitor BP outpatient b.i.d. and also monitor BMP in 1 week-if renal function allows, reintroduce losartan outpatient. While patient is off losartan, amlodipine adjusted to 10 mg daily. potassium 10 meq po dialy for 4 days. Complete Ceftin 500 mg p.o. b.i.d. for 14 days. Diabetes with hyperglycemia Lantus adjusted to 32 unit evening time, monitor fingersticks pre meal and use sliding scale as prescribed. Plan of Treatment: As above. Assessment: As above.
--- NOTE | 2024-09-18 13:37 | MHC.CM.PN ---
PT WILL DC HOME TODAY WITH [facility] VIA PRIVATE TRANSPORT
== END 2024-09-18 16:06 | disposition home health service (06) | DRG 690 ==
LOC: HO.ED 09-15 01:50 → HO.EDOVER 09-15 04:13 → HO.IMC 09-15 05:03
PROVIDERS: Nurse Practitioner Family; Admitting Provider Student in an Organized Health Care Education/Training Program; Emergency Provider Internal Medicine; PCP Internal Medicine; Visit Provider Internal Medicine
DX: N39.0 Urinary tract infection, site not specified (principal); I69.351 Hemiplegia and hemiparesis following cerebral infarction affecting right dominant side; N17.9 Acute kidney failure, unspecified; E87.1 Hypo-osmolality and hyponatremia; E87.21 Acute metabolic acidosis; J45.20 Mild intermittent asthma, uncomplicated; M35.3 Polymyalgia rheumatica; H54.8 Legal blindness, as defined in USA; E11.65 Type 2 diabetes mellitus with hyperglycemia; I10 Essential (primary) hypertension; E87.6 Hypokalemia; K21.9 Gastro-esophageal reflux disease without esophagitis; I69.328 Other speech and language deficits following cerebral infarction; B96.20 Unspecified Escherichia coli [E. coli] as the cause of diseases classified elsewhere; Z86.711 Personal history of pulmonary embolism; Z79.4 Long term (current) use of insulin; Z79.02 Long term (current) use of antithrombotics/antiplatelets; Z79.82 Long term (current) use of aspirin; Z79.899 Other long term (current) drug therapy
CPT/HCPCS: 36415; 70450; 80048; 80053; 81001; 81003; 82010; 82803; 82947; 83036; 83605; 83735; 83880; 84439; 84443; 84484; 85025; 85027; 85610; 87040; 87077; 87086; 87088; 87186; 87205; 92610; 93005; 97162; 99285; J0131; J0360; J0696; J1644

== ENCOUNTER → 2024-09-14 20:48 | Outpatient (BNV) | payer MEDICARE, SELFPAY | PROVIDERS: Admitting Provider Student in an Organized Health Care Education/Training Program; Emergency Provider Internal Medicine; PCP Internal Medicine; Visit Provider Internal Medicine | DX: I51.7 Cardiomegaly (principal); R00.0 Tachycardia, unspecified | CPT/HCPCS: 93010 ==

== ENCOUNTER → 2024-09-14 21:22 | Outpatient (BNV) | payer MEDICARE, SELFPAY | PROVIDERS: Emergency Provider Internal Medicine; PCP Internal Medicine; Visit Provider Radiology Diagnostic Radiology | DX: R42 Dizziness and giddiness (principal) | CPT/HCPCS: 70450 ==

== ENCOUNTER → 2024-09-14 23:40 | Outpatient (BNV) | payer MEDICARE, SELFPAY | PROVIDERS: Admitting Provider Student in an Organized Health Care Education/Training Program; Emergency Provider Internal Medicine; PCP Internal Medicine; Visit Provider Internal Medicine | DX: R78.81 Bacteremia (principal) | CPT/HCPCS: 99222 ==

== ENCOUNTER → 2024-09-14 23:40 | Outpatient (BNV) | payer MEDICARE, SELFPAY | PROVIDERS: Admitting Provider Student in an Organized Health Care Education/Training Program; Emergency Provider Internal Medicine; PCP Internal Medicine; Visit Provider Nurse Practitioner Family | DX: R78.81 Bacteremia (principal) | CPT/HCPCS: 99232; 99239; G0180 ==

== ENCOUNTER 2024-09-28 14:38 | Outpatient (AMB) | payer MEDICARE, MEDICAID, SELFPAY ==
--- NOTE | 2024-09-28 14:41 | MHC.OFFVIS ---
Vital Signs 09/28/24 14:47 Height 5 ft 7 in Weight 181 lb 10.574 oz BMI 28.4 BP 152/72 H Blood Pressure Location Lt brachial Position Sitting Pulse 97 Pulse Source Pulse Oximeter Pulse Oximetry (%) 97 Oxygen Delivery Method Room Air Intake Visit Reasons: DMT2 Follow-Up Intake Note: Patient present today to follow up on Type 2 Diabetes Mellitus. Last seen by Erika Monreal on 08/03/2024. 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 Driving Required: No Accompanied by: Self / Same As Patient Allergies Penicillins (PENICILLINS) Allergy (Severe, Verified 09/28/24 14:47) SOB, rash, itching codeine (CODEINE) Allergy (Intermediate, Verified 09/28/24 14:47) RASH SOB oxycodone (From PERCOCET) Allergy (Intermediate, Verified 09/28/24 14:47) RASH SOB kiwi (KIWI) Allergy (Mild, Verified 09/28/24 14:47) ITCHY IF TOUCHES pineapple (PINEAPPLE) Allergy (Mild, Verified 09/28/24 14:47) ITCHY IF TOUCHES metformin Adverse Reaction (Intermediate, Verified 09/28/24 14:47) dizziness, blurred vision Medication List - Last Reconciled 09/28/24 by Taj Velez MD acetaminophen 650 mg PO Q4H PRN albuterol sulfate 2.5 mg (3 mL) continuous nebulization Q4-6H PRN amlodipine 10 mg (2 x 5 mg) PO DAILY ascorbate calcium (vitamin C) 500 mg PO DAILY 90 days aspirin (Adult Aspirin Regimen) 81 mg PO DAILY 90 days atorvastatin 80 mg PO DAILY blood pressure monitor As directed blood sugar diagnostic (OneTouch Ultra Test strips) 5 times per day blood sugar diagnostic (FreeStyle Lite Strips) As directed to test blood sugar three times a day blood-glucose meter (FreeStyle [place] Lite kit) As directed blood-glucose meter (OneTouch Ultra2 Meter kit) As directed 3x/day blood-glucose sensor (FreeStyle Carol 3 Plus Sensor device) As directed every 15 days carvedilol (Coreg) 25 mg PO BID 90 days cefuroxime axetil 500 mg PO Q12H chlorpromazine 50 mg PO TID cholecalciferol (vitamin D3) 5,000 units PO DAILY 90 days clopidogrel 75 mg PO DAILY 90 days [compression stockings Use daily as directed as needed, strength - medium; length - knee high ] cyanocobalamin (vitamin B-12) 1,000 mcg PO DAILY 90 days dulaglutide (Trulicity) 1.5 mg subcut MYERS@0900 ferrous sulfate 325 mg PO BID folic acid 1 mg PO DAILY 90 days gabapentin 400 mg PO TID 30 days insulin glargine (Lantus Solostar U-100 Insulin) 32 units (0.32 mL) subcut QPM insulin lispro (Humalog U-100 Insulin) 0 sliding scale doses See Protocol subcut TIDAC lancets 5 times per day lancets (FreeStyle Lancets) As directed test blood sugar three times a day [LIGHTWEIGHT STANDARD WHEELCHAIR As directed] [LIGHTWEIGHT WHEELCHAIR As directed] losartan 100 mg PO DAILY 90 days Held on 09/18/24. Instructions: Resume on 09/26/24. pen needle, diabetic (BD Nella 2nd Gen Pen Needle) test 5 times per day pen needle, diabetic (BD Ultra-Fine Micro Pen Needle) 5 times a day as directed - Lantus QD and Humalog QID pioglitazone 15 mg PO DAILY 30 days potassium chloride ER 10 mEq PO DAILY [ROLLATOR As directed] tramadol 50 mg PO TID PRN 30 days [Transport wheel chair As directed] Ventolin HFA 90 mcg/actuation (albuterol sulfate) 2 puffs inhalation Q4-6H PRN NS [WALKER LEG RUBBER TIPS As directed] HPI Comments Details: 68 YO F with PMHx T2DM who is seen in F/U for T2DM. The patient last saw Erika Das NP on 08/03/24 Initially diagnosed with T2DM in 2001. Previous medications: Metformin and Jardiance which were both stopped secondary to side effects Current meds: Lantus 32 units Humalog 10 units tid before meals Trulicity 1.5mg weekly freestyle sensor: Sensor download shows she is using the sensor 74% of the time. Average glucose is 240 with G mi of 9.1% and variability 28.8%. 15% range with 42% hyperglycemia and 42% very hyperglycemic in 1% hypoglycemia. The trend is for decreasing blood sugars overnight with rise in blood sugar after breakfast and a lesser rise mid afternoon Treats lows with juice. Checks sugar after to ensure it is rising. Treats according to rule of 15's. Family history of T2DM in her Mother and Sister. Has retinopathy Last eye exam seeing October 08 2024 Has neuropathy. Symptoms reported: Numbness, tingling, no pain or cramping does not see podiatry Has nephropathy, on Losartan 100 mg PO daily. 10/29/2023 microalbumin 16.0 11/13/2023 eGFR>60 Has HLD, on Atorvastatin 40 mg PO daily and Zetia 10 mg PO daily. Denies CAD. [facility] Medical History (Updated 09/26/24 @ 00:00 by Background [place]) Bacteremia Primary osteoarthritis, right shoulder CVA (cerebral vascular accident) Bleeding hemorrhoids Carpal tunnel syndrome, bilateral Internal and external hemorrhoids without complication Diverticulosis Rectal bleed Varicose veins of both lower extremities with pain Hx pulmonary embolism Rectal bleeding Obesity (BMI 30-39.9) Overactive bladder Migraine GERD without esophagitis Allergic rhinitis Fibromyalgia Vitamin B12 deficiency Asthma Bilateral primary osteoarthritis of knee Pure hypercholesterolemia Benign essential hypertension Bilateral lower extremity edema Mammogram abnormal Intertrigo Breast nodule Goiter Vitamin D deficiency HLD (hyperlipidemia) T2DM (type 2 diabetes mellitus) Arthritis Breast pain, right Calcific tendinitis of right hip Right lumbar radiculopathy Right hip pain Low back pain Surgical History Hx of breast surgery History of colonoscopy History of mammogram History of incision and drainage Hx of cataract extraction Hx of cholecystectomy Hx of tubal ligation Hx of eye surgery History of tonsillectomy and adenoidectomy Family History Father Hypertension Myocardial infarction Stroke Mother Hypertension Diabetes Social History Household Members: Spouse and Children Housing: Homeless Are you a primary director career services to a significant other at home: No Do you presently have visiting nurse or other home services: No Alcohol intake: never Patient Tobacco Use Status: Never used Tobacco e-Cigarette/Vaping Use: Never Used Second Hand Smoke Exposure: No service: No Current occupational status: disabled Cognitive needs: No Hearing needs: No Vision needs: Yes (Glasses) Physical Exam Vital Signs: Last Vital Signs Pulse 97 09/28/24 14:47 BP 152/72 H 09/28/24 14:47 Pulse Ox 97 09/28/24 14:47 Oxygen Delivery Method Room Air 09/28/24 14:47 BMI result Body Mass Index 28.4 Absence of Cushingoid features. Absence of acromegalic features. Neck exam reveals nl size thyroid about 15 gms. No thyroid nodules palpable. No carotid bruits present. Lungs CTA. Heart S1 S2, Reg R/R. No M/R/ G. Skin exam reveals absence of vitiligo or acanthosis nigricans. Abdominal exam reveals Soft NT/ND with NA BS. No organomegaly present. Neck Other: . Extrem Other: Visual exam of foot performed. No ulcerations or open lesions. No onchomycosis, no callouses.Pulses 2 + distally Sensation intact to monofilament exam. Vibratory sensation sensed is decreased with 128 Hz tuning fork Results Reviewed Results Reviewed: Laboratory Last Values Glucose (Clinic) 201 mg/dL (60-115) H 09/28/24 14:55 Assessment & Plan Assessment & Plan (1) T2DM (type 2 diabetes mellitus): Code(s): E11.9 - Type 2 diabetes mellitus without complications Category: Medical Qualifiers: 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 complication status: with hyperglycemia 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 housing inspector insulin use: with senior care use Qualified Code(s): E11.65 - Type 2 diabetes mellitus with hyperglycemia; Z79.4 - care home (current) use of insulin Plan: This is a 67-year-old female with a history of type 2 diabetes being treated with Trulicity and basal-bolus insulin with poor glycemic control and known microvascular and macrovascular complications namely neuropathy, CKD and CVA. Plan is to change the Trulicity to Mounjaro 2.5 mg Q weekly. Went over with patient and daughter side effects of Mounjaro including but not limited to nausea, vomiting rare risk of pancreatitis. Also, increase the Lantus to 36 units and increased Humalog to 14 units before breakfast. Went over with patient and daughter correlation of poor glycemic control with development and progression of complications. Will have patient follow up with primary care diabetes team in about 3-4 weeks will have patient follow up with clinical document improvement educator and supervisor operations (2) Pure hypercholesterolemia: Code(s): E78.00 - Pure hypercholesterolemia, unspecified Category: Medical Plan: LDL now at goal considering history of CVAs. Medications: New glucagon 3 mg/actuation (Baqsimi) 3 mg intranasal ONCE 2 ea 4RF glucose until symptoms of low blood sugar are controlled 4 grams PO Q15M PRN 30 tabs 5RF hypoglycemia Mounjaro (tirzepatide) for 4 weeks 2.5 mg (0.5 mL) subcut QWEEK 2 mL 7RF NS Coding Level of Care Code Est Pt Level 4 (66217) Complex EM visit Add On G2211 Diagnoses Type 2 diabetes mellitus with hyperglycemia, with long-term current use of insulin E11.65; Z79.4 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 complication status: with hyperglycemia 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 housing inspector insulin use: with senior care use Pure hypercholesterolemia E78.00
[2024-09-28 14:47] VITALS: BP 152/72; PULSE 97; O2SAT 97; BMI 28.4
[2024-09-28 15:00] LABS: Glucose, Whole Blood 201 mg/dL (60-115)
== END 2024-09-28 15:33 | disposition home or self-care (01) ==
PROVIDERS: PCP Internal Medicine; Visit Provider Internal Medicine Endocrinology, Diabetes & Metabolism
DX: E11.65 Type 2 diabetes mellitus with hyperglycemia (principal); Z79.4 Long term (current) use of insulin; E78.00 Pure hypercholesterolemia, unspecified
CPT/HCPCS: 99214; G2211

== ENCOUNTER → 2024-09-28 14:38 | Outpatient (BNVA) | payer MEDICARE, MEDICAID, SELFPAY | PROVIDERS: PCP Internal Medicine; Visit Provider Internal Medicine Endocrinology, Diabetes & Metabolism | DX: E11.65 Type 2 diabetes mellitus with hyperglycemia (principal); E78.00 Pure hypercholesterolemia, unspecified; Z79.4 Long term (current) use of insulin; Z79.85 Long-term (current) use of injectable non-insulin antidiabetic drugs | CPT/HCPCS: 82947; 99212 ==

== ENCOUNTER 2024-10-12 13:26 | Outpatient (AMB) | payer MEDICARE, SELFPAY ==
--- NOTE | 2024-10-12 13:38 | A.OFFPC_ITS ---
Vital Signs 10/12/24 13:39 Height 5 ft 7 in Weight 181 lb 8 oz BMI 28.4 BP 152/74 H Blood Pressure Location Lt brachial Position Sitting Pulse 84 Pulse Source Pulse Oximeter Pulse Oximetry (%) 99 Oxygen Delivery Method Room Air Intake Visit Reasons: follow up Certified Art Therapist Required: No Accompanied by: Self / Same As Patient Allergies Penicillins (PENICILLINS) Allergy (Severe, Verified 10/12/24 14:07) SOB, rash, itching codeine (CODEINE) Allergy (Intermediate, Verified 10/12/24 14:07) RASH SOB oxycodone (From PERCOCET) Allergy (Intermediate, Verified 10/12/24 14:07) RASH SOB kiwi (KIWI) Allergy (Mild, Verified 10/12/24 14:07) ITCHY IF TOUCHES pineapple (PINEAPPLE) Allergy (Mild, Verified 10/12/24 14:07) ITCHY IF TOUCHES metformin Adverse Reaction (Intermediate, Verified 10/12/24 14:07) dizziness, blurred vision Medication List - Last Reconciled 10/12/24 by Erick Villanueva MD acetaminophen 650 mg PO Q4H PRN albuterol sulfate 2.5 mg (3 mL) continuous nebulization Q4-6H PRN amlodipine 10 mg PO DAILY ascorbate calcium (vitamin C) 500 mg PO DAILY 90 days aspirin (Adult Aspirin Regimen) 81 mg PO DAILY 90 days atorvastatin 80 mg PO DAILY blood pressure monitor As directed blood sugar diagnostic (OneTouch Ultra Test strips) 5 times per day blood sugar diagnostic (FreeStyle Lite Strips) As directed to test blood sugar three times a day blood-glucose meter (FreeStyle [place] Lite kit) As directed blood-glucose meter (OneTouch Ultra2 Meter kit) As directed 3x/day blood-glucose sensor (FreeStyle Carol 3 Plus Sensor device) As directed every 15 days carvedilol (Coreg) 25 mg PO BID 90 days chlorpromazine 50 mg PO TID cholecalciferol (vitamin D3) 5,000 units PO DAILY 90 days clopidogrel 75 mg PO DAILY 90 days [compression stockings Use daily as directed as needed, strength - medium; length - knee high ] cyanocobalamin (vitamin B-12) 1,000 mcg PO DAILY 90 days ferrous sulfate 325 mg PO BID folic acid 1 mg PO DAILY 90 days gabapentin 400 mg PO TID 30 days glucagon 3 mg/actuation (Baqsimi) 3 mg intranasal ONCE glucose 4 grams PO Q15M PRN insulin glargine (Lantus Solostar U-100 Insulin) 32 units (0.32 mL) subcut QPM insulin lispro (Humalog U-100 Insulin) 0 sliding scale doses See Protocol subcut TIDAC lancets 5 times per day lancets (FreeStyle Lancets) As directed test blood sugar three times a day [LIGHTWEIGHT STANDARD WHEELCHAIR As directed] [LIGHTWEIGHT WHEELCHAIR As directed] losartan 100 mg PO DAILY 90 days Held on 09/18/24. Instructions: Resume on 09/26/24. Mounjaro (tirzepatide) 2.5 mg (0.5 mL) subcut QWEEK NS pen needle, diabetic (BD Nella 2nd Gen Pen Needle) test 5 times per day pen needle, diabetic (BD Ultra-Fine Micro Pen Needle) 5 times a day as directed - Lantus QD and Humalog QID pioglitazone 15 mg PO DAILY 30 days potassium chloride ER 10 mEq PO DAILY [ROLLATOR As directed] tramadol 50 mg PO TID PRN 30 days [Transport wheel chair As directed] Ventolin HFA 90 mcg/actuation (albuterol sulfate) 2 puffs inhalation Q4-6H PRN NS [WALKER LEG RUBBER TIPS As directed] Tobacco use date assessed: 10/12/24 Fall risk assessment: No Falls in past year Last assessed Fall Risk: 10/12/24 Dental Screening Dental Screen Date: 10/12/24 Did you have a dental visit in the last 12 months?: Yes Did you have a dental problem in the last 6 months where you did not have access to dental care?: No Was dental information given to patient?: Patient has dentist HPI follow up HPI Details Patient comes in today for her follow up visit States that she feels okay She denies any headaches or dizziness lately Denies any chest pains, no increased shortness of breath No nausea/vomiting, no abdominal pain No change in bowel habits noted She has had a raised cyst on her right upper back behind her right shoulder for a while now and she would like to see someone to have this taken off as soon as possible She also has a small nontender nodule at the base of her left thumb that she states has been present for a few months now and feels that this has gotten bigger lately Notes (+) mild discomfort in her left thumb at times, especially when she is bending it and thinks that her discomfort is due to the presence of the enlarging ganglion cyst there and she would like to have it removed if possible She is also requesting for a referral again to physical therapy for her right- sided weakness and dystonia Needs a few of her Rx refilled She had her follow-up labs done a few weeks ago - to discuss her results REPLACED BY [facility] Medical History (Updated 10/17/24 @ 01:01 by Erick Villanueva MD) Bacteremia Primary osteoarthritis, right shoulder CVA (cerebral vascular accident) Bleeding hemorrhoids Carpal tunnel syndrome, bilateral Internal and external hemorrhoids without complication Diverticulosis Rectal bleed Varicose veins of both lower extremities with pain Hx pulmonary embolism Rectal bleeding Obesity (BMI 30-39.9) Overactive bladder Migraine GERD without esophagitis Allergic rhinitis Fibromyalgia Vitamin B12 deficiency Asthma Bilateral primary osteoarthritis of knee Pure hypercholesterolemia Benign essential hypertension Bilateral lower extremity edema Mammogram abnormal Intertrigo Breast nodule Goiter Vitamin D deficiency HLD (hyperlipidemia) T2DM (type 2 diabetes mellitus) Arthritis Breast pain, right Calcific tendinitis of right hip Right lumbar radiculopathy Right hip pain Low back pain Surgical History Hx of breast surgery History of colonoscopy History of mammogram History of incision and drainage Hx of cataract extraction Hx of cholecystectomy Hx of tubal ligation Hx of eye surgery History of tonsillectomy and adenoidectomy Family History Father Hypertension Myocardial infarction Stroke Mother Hypertension Diabetes Social History Household Members: Spouse and Children Housing: Homeless Are you a primary nanny caregiver to a significant other at home: No Do you presently have visiting nurse or other home services: No Alcohol intake: never Patient Tobacco Use Status: Never used Tobacco e-Cigarette/Vaping Use: Never Used Second Hand Smoke Exposure: No service: No Current occupational status: disabled Cognitive needs: No Hearing needs: No Vision needs: Yes (Glasses) Questionnaire PHQ-9 Over the last 2 weeks, how often have you been bothered by any of the following problems? 1. Little interest or pleasure in doing things: not at all 2. Feeling down, depressed, or hopeless: not at all 3. Trouble falling or staying asleep, or sleeping too much: not at all 4. Feeling tired or having little energy: not at all 5. Poor appetite or overeating: not at all 6. Feeling bad about yourself - or that you are a failure or have let yourself or your family down: not at all 7. Trouble concentrating on things, such as reading the newspaper or watching television: not at all 8. Moving or speaking so slowly that other people could have noticed. Or the opposite - being so fidgety or restless that you have been moving around a lot more than usual: not at all 9. Thoughts that you would be better off or of hurting yourself in some way: not at all Total score: 0 Depression Screening Interpretation: Negative Depression Screening Done: Yes 33949 - PHQ-9 Billing: Yes Source: Developed by Drs. Taj Willson, Elaine Tsai, Dyllan Singh and colleagues, with an educational cory from [employer] Thrive Questionnaire Date Thrive assessed: 10/12/24 I am a: Patient What is your living situation today?: I have a steady place to live Within the past 12 months, did the food you bought not last and you didn't have the money to get more?: Never true Within the past 12 months, did you worry whether your food would run out before you got money to buy more?: Never true Do you have trouble paying for medicines?: No Do you have trouble getting transportation to medical appointments?: No Do you have trouble paying your heating and electricity bill?: No Do you have trouble taking care of your child, family member or friend?: No Do you have trouble with day-to-day activities such as bathing, preparing meals, shopping, managing finances, etc.?: No Are you currently unemployed and looking for a job?: No Are you interested in more education?: No Please select the resources that you would like help with: None Currently or been in a relationship where the following occur: No concerns reported THRIVE Score: 0 AUDIT C Alcohol Use Questionnaire (AUDIT-C) 1. How often do you have a drink containing alcohol?: Never 3. How often do you have six or more drinks on one occasion?: Never Total Score: 0 Score Reviewed/Action Taken: Yes LELE-7 AMB Questionnaire LELE-7 Date LELE - 7 assessed: 10/12/24 Feeling nervous, anxious, or on edge: 0 = Not at all Not being able to stop or control worryin = Not at all Worrying too much about different things: 0 = Not at all Trouble relaxin = Not at all Being so restless that it is hard to sit still: 0 = Not at all Becoming easily annoyed or irritable: 0 = Not at all Feeling afraid as if something awful might happen: 0 = Not at all Total LELE-7 score (0-4 normal; 5-9 mild; 10-14 moderate; 15-21 severe): 0 Source: Developed by Drs. Taj Willson, Elaine Tsai, Dyllan Singh and colleagues, with an educational cory from [employer]. LELE-7 Assessment Billing LELE-7 Assessment Tool: LELE-7 Assessment 75764 Review of Systems Const Denies chills, Reports fatigue, Denies fever(s) and Denies headache(s) ENT Denies dysphagia, Reports dizziness (on and off lately), Denies otalgia, Denies headache(s), Reports neck pain (chronic), Denies odynophagia and Denies sore throat Card Denies chest pain, Denies rapid heart rate, Denies palpitations and Reports dyspnea on exertion (mild) Resp Denies chest congestion, Denies cough and Reports dyspnea on exertion (mild) GI Denies abdominal pain, Denies constipation, Denies dysphagia, Denies heartburn, Denies diarrhea, Denies nausea, Denies odynophagia and Denies vomiting Denies difficulty voiding, Denies nocturia, Denies dysuria and Denies urinary urgency Musc Details: (+) pain over her entire right side, from the neck and shoulder down to the leg Denies back pain, Reports arthralgias (involving both shoulders, right elbow, arm and leg; R knee), Denies joint swelling, Reports neck pain (chronic) and Reports numbness (on and off, over the fingers of the right hand) Skin/Breast Details: (+) small, raised, non-tender cyst on the right upper back behind the right shoulder; (+) non-tender ganglion cyst at the base of the left thumb Denies rash Neuro Details: (+) recurrent, involuntary movements involving primarily the right side of the face and right arm/hand but these appear much better controlled/less prominent currently Reports dizziness (on and off lately), Denies headache(s) and Reports numbness (on and off, over the fingers of the right hand) Psych Reports anxiety (better controlled) and Reports depression (better controlled) Endo Reports fatigue and Denies palpitations Physical exam (Primary Care) Vital Signs: Last Vital Signs Pulse 84 10/12/24 13:39 BP 152/74 H 10/12/24 13:39 Pulse Ox 99 10/12/24 13:39 Oxygen Delivery Method Room Air 10/12/24 13:39 BMI result Body Mass Index 28.4 Tobacco/Smoking Status: Tobacco use Status Tobacco use date assessed 10/12/24 10/12/24 13:46 Patient Tobacco Use Status Never used Tobacco 10/12/24 13:46 e-Cigarette/Vaping Use Never Used 10/12/24 13:46 PHQ-9: PHQ-9 Score PHQ-9: Total score 0 10/12/24 14:20 Depression Screening Interpretation: Negative Thrive Assessment: Date of Thrive Assessment Date Thrive assessed 10/12/24 10/12/24 13:46 Currently or been in a relationship where the following occur: No concerns reported Const General: no acute distress and alert HENMT Ears: TM's normal bilaterally and EAC's normal Throat: Yes posterior oropharynx normal and Yes tonsils normal (no TP congestion noted) Neck Neck: Yes no lymphadenopathy, Yes supple and Yes tender (over the cervical spine on exam) Thyroid: Thyroid normal Resp Auscultation: clear to auscultation bilaterally, no rales and no wheezes Cardio Rate: regular rate Rhythm: regular rhythm Heart sounds: no murmurs GI Palpation (GI): Soft to palpation and nontender Auscultation: normal bowel sounds Back/Spine/Pelvis Cervical Spine: cervical muscular tenderness (bilateral) and Cervical spine tenderness Thoracic/Lumbar Spine: paraspinal muscle tenderness bilaterally in the upper thoracic and lumbar spinal tenderness Skin Other: (+) small, raised, non-tender cyst on the right upper back behind the right shoulder; (+) non-tender ganglion cyst at the base of the left thumb Rashes: no rashes Neuro Other: right hemiparesis Cognition (Neuro): normal cognition Gait exam (Neuro): Antalgic gait present and Assistive device used (cane) Motor exam (neuro): Motor abnormalites present dystonia (involving mainly the right side of the face and the right arm) Extrem General: No clubbing, No cyanosis and Yes edema (1+ bipedal edema) Right upper extremity: shoulder/upper arm Details: tenderness Location: of the A-C joint; no swelling, elbow/forearm Details: tenderness Location: of the olecranon and of the lateral epicondyle and wrist Details: tenderness Location: of the volar wrist (on deep palpation) Right lower extremity: knee Details: tenderness and swelling (mild) Left lower extremity: knee Details: tenderness, swelling (mild) and crepitus Results Reviewed Results Reviewed: Laboratory Tests 09/14/24 09/14/24 09/14/24 21:15 21:16 21:43 WBC Hgb Hct Plt Count Sodium Potassium Creatinine Estimated GFR POC Glucose Hemoglobin A1c % Calcium Magnesium AST ALT B-Natriuretic Peptide 144 H TSH 2.64 Free T4 1.21 Ur Specific [place] 1.020 Urine Protein 100 (2+) H 09/15/24 09/17/24 09/18/24 09:16 07:58 08:05 WBC 4.7 L Hgb 9.2 L Hct 28.2 L Plt Count 261 D Sodium 141 Potassium 3.3 Creatinine 1.00 Estimated GFR 55 POC Glucose Hemoglobin A1c % 11.7 H Calcium 8.8 D Magnesium 1.7 AST 21 ALT 13 B-Natriuretic Peptide TSH Free T4 Ur Specific [place] Urine Protein 09/18/24 11:27 WBC Hgb Hct Plt Count Sodium Potassium Creatinine Estimated GFR POC Glucose 132 H Hemoglobin A1c % Calcium Magnesium AST ALT B-Natriuretic Peptide TSH Free T4 Ur Specific [place] Urine Protein Coding Level of Care Code Est Pt Level 4 (91753) Diagnoses Cerebrovascular accident (CVA), unspecified mechanism I63.9 CVA mechanism: unspecified Hemiparesis affecting right side as late effect of cerebrovascular accident (CVA) I69.351 Dystonia G24.9 Pure hypercholesterolemia E78.00 Type 2 diabetes mellitus with hyperglycemia, without long-term current use of insulin E11.65 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 complication status: with hyperglycemia 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 detention insulin use: without intermodal owner operator truck driver use 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 type: type 2 Benign essential hypertension I10 Personal history of pulmonary embolism Z86.711 Fibromyalgia M79.7 Bilateral primary osteoarthritis of knee M17.0 Primary osteoarthritis, right shoulder M19.011 Carpal tunnel syndrome, bilateral G56.03 Moderate persistent asthma without complication J45.40 Asthma complication type: uncomplicated Asthma persistence: persistent Asthma severity: moderate GERD without esophagitis K21.9 Vitamin B12 deficiency E53.8 Vitamin D deficiency E55.9 Ganglion cyst of finger of left hand M67.442 Epidermoid cyst of skin of back L72.0 Obesity (BMI 30-39.9) E66.9 Additional Codes LELE-7 Assessment Billing - LELE-7 Assessment Tool: LELE-7 Assessment 15319 ([id number]) PHQ-9 - 21776 - PHQ-9 Billing: Yes ([id number]) Assessment & Plan Assessment & Plan (1) CVA (cerebral vascular accident): Code(s): I63.9 - Cerebral infarction, unspecified Category: Medical Qualifiers: CVA mechanism: unspecified Qualified Code(s): I63.9 - Cerebral infarction, unspecified Plan: S/P CVA in May 2022; new CVA in May 2023 - repeat brain MRI revealed (+) new small acute white matter infarct within the deep white matter of the left frontal lobe Continue Aspirin 81 mg QD, Clopidogrel 75 mg QD and high dose statins Follow up with neurology (Dr. Boo) as scheduled (2) Hemiparesis affecting right side as late effect of cerebrovascular accident (CVA): Code(s): I69.351 - Hemiplegia and hemiparesis following cerebral infarction affecting right dominant side Category: Medical Plan: S/P PT and OT at [facility] last year (was discharged from there on 06/10/2023 ), followed by home PT for a while She was referred back to PT last year as she felt that her mobility has declined due to a perceived increase in her right-sided dystonic movements Per request, will refer her back to physical therapy (3) Dystonia: Code(s): G24.9 - Dystonia, unspecified Category: Medical Plan: This is likely a sequelae of her previous CVA in May 2022 Continue Chlorpromazine 50 mg TID Follow up with neurology as scheduled (4) Pure hypercholesterolemia: Code(s): E78.00 - Pure hypercholesterolemia, unspecified Category: Medical Plan: Results of her labs done last month reviewed and discussed with patient but these did not include her fasting lipid profile Her fasting lipids last checked in May 2024 were acceptable, with total cholesterol at 173 mg/dl and LDL at 94 mg/dl Reinforced low cholesterol diet Continue Atorvastatin 80 mg QD Will have her recheck her labs and fasting lipids in 4 months for follow up (5) 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: Code(s): E11.9 - Type 2 diabetes mellitus without complications Category: Medical Qualifiers: 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 complication status: with hyperglycemia 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 owner operator truck driver insulin use: without detention use 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 type: type 2 Qualified Code(s): E11.65 - Type 2 diabetes mellitus with hyperglycemia Plan: Patient's HgbA1c was at 11.7% on her labs done last month (in-office HgbA1c was at 13.1% back in May 2024 and her HgbA1c was at 7.3% back on 10/29/2023) - goal is at least <7.0% Reinforced diabetic diet Continue Pioglitazone 15 mg QD, Lantus 32 units Q HS, Mounjaro 2.5 mg once a week and Humalog 4 units with meals and at bedtime per sliding scale Follow up with endocrinology as scheduled (6) Benign essential hypertension: Code(s): I10 - Essential (primary) hypertension Category: Medical Plan: Reinforced low-sodium diet - goal is systolic BP of at least 120-130 mm or less Continue Losartan 100 mg QD, Amlodipine 10 mg QD and Carvedilol 25 mg BID (7) Personal history of pulmonary embolism: Code(s): Z86.711 - Personal history of pulmonary embolism Category: Medical Plan: She was taken off Coumadin and switched over to Apixaban 2.5 mg BID by hematology last year as patient has not had any recurrence of her embolism for years This was discontinued and patient was started instead on Clopidogrel 75 mg QD after her recent CVA Follow up with hematology/oncology as scheduled (8) Fibromyalgia: Code(s): M79.7 - Fibromyalgia Category: Medical Plan: Follow up with Rheumatology as scheduled Patient again encouraged on regular exercise and physical activity to help manage her symptoms Continue Gabapentin 400 mg 3 times a day (9) Bilateral primary osteoarthritis of knee: Comment: X-rays of the knees done back on 03/15/2016 showed severe tricompartmental arthritis in both knees Symptoms have improved with cortisone injections from Orthopedics as needed Code(s): M17.0 - Bilateral primary osteoarthritis of knee Category: Medical Plan: Patient currently remains very limited with her activity and mobility due to her knee osteoarthritis and her CVA She is advised that her right leg pain is most likely related to her knee OA; she had cortisone injections into her knees from [facility] last year and she felt that the injections were the trigger(s) of most of her symptoms of dystonia (and not her CVA) Repeat x-rays of the right knee in April 2023 revealed (+) tricompartment osteoarthritic change of the right knee, most pronounced in the lateral joint space compartment, where degenerative change is severe Follow up with orthopedics ([facility]) as scheduled (10) Primary osteoarthritis, right shoulder: Code(s): M19.011 - Primary osteoarthritis, right shoulder Category: Medical Plan: Right shoulder x-rays done a couple of years ago revealed some findings of AC arthritis in the joint Her shoulder symptoms have since improved with physical therapy Continue Tramadol 50 mg TID PRN for pain (11) Carpal tunnel syndrome, bilateral: Code(s): G56.03 - Carpal tunnel syndrome, bilateral upper limbs Category: Medical Plan: EMG and NCV done back in 2014 revealed (+) moderate carpal tunnel syndrome on the right and mild carpal tunnel syndrome on the left side; EMG was normal She has been advised that she will need repeat NCV & EMG if she feels that her right hand symptoms are getting worse and if repeat NCV confirms progression and severity of her CTS, will need to consider referral to orthopedics for median nerve release She would not be able to get her EMG and NCV done at this time due to her recurrent dystonic movements (12) Asthma: Code(s): J45.909 - Unspecified asthma, uncomplicated Category: Medical Qualifiers: Asthma complication type: uncomplicated Asthma persistence: persistent Asthma severity: moderate Qualified Code(s): J45.40 - Moderate persistent asthma, uncomplicated Plan: Controlled Continue Symbicort 160-4.5 mcg 2 inhalations BID, ,Montelukast 10 mg QD and Ventolin HFA 2 inhalations every 6 hours PRN (13) GERD without esophagitis: Comment: Barium swallow done a couple of years ago showed (+) hiatal hernia with (+) significant acid reflux Code(s): K21.9 - Gastro-esophageal reflux disease without esophagitis Category: Medical Plan: Dietary restrictions reinforced Her previous Omeprazole was changed to Lansoprazole 15 mg QD due to potential interactions of Omeprazole with Clopidogrel (14) Vitamin B12 deficiency: Code(s): E53.8 - Deficiency of other specified B group vitamins Category: Medical Plan: Continue Vitamin B12 injections 1000 mcg once a month and oral Vitamin B12 tablets 1000 mcg tablets once a day (15) Vitamin D deficiency: Code(s): E55.9 - Vitamin D deficiency, unspecified Category: Medical Plan: Continue Vitamin D2 12659 units once a week (added by endocrinology) and Vitamin D3 2000 units daily (16) Ganglion cyst of finger of left hand: Comment: at the base of the left thumb Code(s): M67.442 - Ganglion, left hand Category: Medical Plan: Will refer her to orthopedics for further evaluation and management (17) Epidermoid cyst of skin of back: Comment: at the right upper back behind the right shoulder Code(s): L72.0 - Epidermal cyst Category: Medical Plan: Will refer her to surgery for further evaluation and management and consideration for excision (18) Obesity (BMI 30-39.9): Code(s): E66.9 - Obesity, unspecified Category: Medical Plan: Reinforced diet; exercise and weight loss are unrealistic given patient's comorbidities and recent issues with her CVA and right-sided dystonic movements Plan Follow up in 4 months Orders: Orders Hemoglobin A1c 4 Months E11.9 - Type 2 diabetes mellitus without complications Lipid Panel 4 Months E78.00 - Pure hypercholesterolemia, unspecified Complete Blood Count Auto Diff 4 Months D64.9 - Anemia, unspecified Comprehensive [place]. Panel Fast 4 Months E78.00 - Pure hypercholesterolemia, unspecified PT Evaluation and Treatment 10/12/24 G24.9 - Dystonia, unspecified, I69.351 - Hemiplegia and hemiparesis following cerebral infarction affecting right dominant side, R29.898 - Other symptoms and signs involving the musculoskeletal system Microalbumin, Random (w Creat) 4 Months E11.9 - Type 2 diabetes mellitus without complications Referrals General Surgery Referral L72.0 - Epidermal cyst Orthopedics Referral M67.442 - Ganglion, left hand Medications: Refilled tramadol 50 mg PO TID PRN 90 tabs 0RF pain 30 days Resumed losartan 100 mg PO DAILY 90 tabs 3RF 90 days losartan 100 mg PO DAILY 90 days 90 tabs 3RF
[2024-10-12 13:39] VITALS: BP 152/74; PULSE 84; O2SAT 99; BMI 28.4
--- OUTSIDE RECORDS SUMMARY | 2024-10-12 14:00 | XMS_ITS | Clinical Summary ---
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 5 Active clopidogrel (PLAVIX) 75 mg tablet Take 75 mg by mouth daily. 5 Active chlorproMAZINE (THORAZINE) 50 MG tablet Take 50 mg by mouth 3 (three) times a day. 5 Active cholecalciferol 25 MCG (1,000 unit) tablet Take 1,000 Units by mouth daily. 5 Active cefuroxime (CEFTIN) 500 MG tablet Take 500 mg by mouth 2 (two) times a day. 5 Active potassium chloride SA (KLOR-CON M10) 10 MEQ ER tablet Take 10 mEq by mouth daily. 5 Active folic acid (FOLVITE) 1 MG tablet Take 1 mg by mouth daily. 5 Active aspirin 81 mg chewable tablet Take 81 mg by mouth daily. 5 Active atorvastatin (LIPITOR) 80 MG tablet Take 80 mg by mouth daily. 5 Active albuterol 90 mcg/actuation inhaler Inhale 2 puffs into the lungs every 4 (four) hours as needed for shortness of breath/dyspnea . Active traMADoL (ULTRAM) 50 mg tablet Take 50 mg by mouth every 8 (eight) hours as needed for pain (specific location in comments). Active ferrous sulfate 325 mg (65 mg [place] iron) tablet Take 325 mg by mouth daily with breakfast. Active dulaglutide (TRULICITY) 1.5 mg/0.5 mL subcutaneous injection Inject 1.5 mg under the skin once a week. Active insulin lispro (ADMELOG, HUMALOG) 100 unit/mL injection pen Inject 2-10 Units under the skin 3 (three) times a day before meals. VIA SS 5 Active insulin glargine 100 unit/mL (3 mL) InPn injection pen Inject 32 Units under the skin daily. Active acetaminophen (TYLENOL) 325 mg tablet Take 650 mg by mouth every 4 (four) hours as needed for fever, headache or pain (specific location in comments). Active Encounters Date Type Department Care Team Description 10/11/2024 Home Care Visit [facility] [address] [place] [phone] Regine Ramirez, PT CASE COMMUNICATION 10/10/2024 Episode Documentation Update [facility] [address] [place] [phone] Dillan Villalpando 10/06/2024 Home Care Visit [facility] [address] [place] [phone] Regine Ramirez, PT CASE COMMUNICATION 10/04/2024 Home Care Visit [facility] [address] [place] [phone] Luh Hodge, LUANN TELEPHONE ENCOUNTER 09/30/2024 8:00 AM EDT Home Care Visit [facility] [address] [place] [phone] Osiris Goldberg, RN CASE COMMUNICATION 09/29/2024 Home Care Visit [facility] [address] [place] [phone] Luh Hodge, OT TELEPHONE ENCOUNTER 09/27/2024 Home Care Visit [facility] [address] [place] [phone] Luh Hodge, OT TELEPHONE ENCOUNTER 09/26/2024 Home Care Visit [facility] [address] [place] [phone] Luh Hodge, OT TELEPHONE ENCOUNTER 09/22/2024 Home Care Visit [facility] [address] [place] [phone] Dhara Willard, PT TELEPHONE ENCOUNTER 09/22/2024 Plan of Care Documentation [facility] [address] [place] [phone] 09/21/2024 6:00 AM EDT Home Care Visit [facility] [address] [place] [phone] BaezLivia, RN SN OASIS START OF CARE (SOC) 09/20/2024 Home Care Visit [facility] [address] [place] [phone] Yolanda Akers RN CASE COMMUNICATION 09/15/2024 Orders Only [facility] [address] [place] [phone] Homehealth, Interface ProviderMD from Last 3 Months Social History Tobacco Use Types Packs/Day Years Used Date Smoking Tobacco: Never Assessed Home Health Assessment: Transportation Answer Date Recorded Lack of Transportation (Medical) No 09/21/2024 Lack of Transportation (Non-Medical) No 09/21/2024 Patient Unable or Declines to Respond No 09/21/2024 Education Answer Date Recorded Are you interested in more education? Not on oralia e 06/10/2023 Are you concerned about learning? Not on file 06/10/2023 No 06/10/2023 No 06/10/2023 Digital Access Answer Date Recorded No 06/10/2023 No 06/10/2023 Reliable internet access at home? Not on file 06/10/2023 Device with a working camera? Not on file Intimate Partner Violence Answer Date R ecorded Are you denied basic needs s uch as food, clothing, or medical care? No 07/23/2023 In the past 12 months have y ou been in a relationship with a person who hurts, threatens, or tries to control you? No 07/23/2023 Are you denied basic needs s uch as food, clothing, or medical care? No 07/23/2023 In the past 12 months have y ou been in a relationship with a person who hurts, threatens, or tries to control you? No 07/23/2023 Comments Unknown Sex and Gender Information Value Date Recorded Sex Assigned at Female 07/23/2023 1:55 PM EDT Legal Sex Female 8:11 AM EDT Gender Identity Female 07/23/2023 1:55 PM EDT Sexual Orientation Don't know 07/23/2023 2: 04 PM EDT Last Filed Vital Signs Vital Sign Reading Time Taken Comments Blood Pressure 190/90 09/21/2024 2:05 PM EDT Pulse 88 09/21/2024 2:05 PM EDT Temperature 37.1 C (98.7 F) 09/21/2024 2:05 PM EDT Respiratory Rate 18 09/21/2024 2:05 PM EDT Oxygen Saturation 98% 09/21/2024 2:05 PM EDT Inhaled Oxygen Concentration - - Weight 94.8 kg (209 lb) 07/23/2023 3:10 PM EDT Height 170.2 cm (5' 7 ) 07/23/2023 3:10 PM EDT Body Mass Index 32.73 07/23/2023 3:10 PM EDT Plan of Treatment Upcoming Encounters Date Type Department Care Team (Late st Contact Info) Description 10/13/2024 3:00 AM EDT Home Care Visit [facility] [address] [place] [phone] Livia Baez RN [address] [place] [phone] [email or web address] 10/20/2024 2:00 AM EDT Home Care Visit [facility] [address] [place] [phone] Livia Baez RN [address] [place] [address] [email or web address] 10/27/2024 3:00 AM EDT Home Care Visit [facility] [address] [place] [phone] Livia Baez RN [address] [place] [phone] [email or web address] 11/03/2024 2:30 AM EDT Home Care Visit [facility] [address] [place] [phone] Livia Baez RN [address] [place] [phone] [email or web address] 11/10/2024 2:30 AM EDT Home Care Visit [facility] [address] [place] [phone] Livia Baez RN [address] [place] [phone] [email or web address] 11/17/2024 12:30 AM EDT Appointment [facility] [address] [place] [phone] Livia Baez RN [address] [place] [phone] [email or web address] Health Maintenance Due Date Last Done Comments Adult Td,Tdap Booster 1955 LIPID PANEL 1955 DEPRESSION SCREENING 1967 SMOKING Hx and SMOKELESS TOB ACCO SCREENING 11/18/1968 HEPATITIS C SCREENING 11/18/1973 MAMMOGRAM 1995 COLOGUARD 11/18/2000 COLONOSCOPY 11/18/2000 COLORECTAL CANCER SCREENING 11/18/2000 FIT TEST 11/18/2000 FOBT 11/18/2000 SIGMOIDOSCOPY 11/18/2000 VIRTUAL COLONOSCOPY 11/18/2000 PNEUMOCOCCAL VACCINES (50+ y ears) (1 of 1 - PCV) 11/18/2005 ZOSTER VACCINES (1 of 2) 11/18/2005 OSTEOPOROSIS SCREENING INITI AL (ONE-TIME) 11/18/2020 COVID-19 VACCINE (1 - 2023-2 5 season) 2023 POTASSIUM LEVEL 07/22/2024 07/23/2023 SCREENING FOR DIABETES 07/22/2026 07/23/2023 RSV VACCINE (1 - 1-dose 75+ series) 11/18/2030 HEPATITIS A VACCINES Aged Out No long er eligible based on patient's age to complete this topic HIB VACCINES Aged Out No longer eligi ble based on patient's age to complete this topic MENINGOCOCCAL VACCINES (ACWY) Aged Out No longer eligible based on patient's age to complete this topic MENINGOCOCCAL VACCINES (B) Aged Out N o longer eligible based on patient's age to complete this topic Medical Devices Not on file Procedures Procedure Name Priority Date/Time Associated Diagnosis Comments BASIC METABOLIC PANEL STAT 07/23/2023 2:03 PM EDT from Last 3 Months or Most Recently Relevant to Health Maintenance Results * (ABNORMAL) Basic metabolic panel (07/23/2023 2:03 PM EDT) SODIUM 140 133 - 146 mmol/L [facility] CHLORIDE 102 96 - 108 mmol/L [facility] POTASSIUM 3.7 3.3 - 5.1 mmol/L [facility] CO2 25 21 - 35 mmol/L [facility] BUN 17 6 - 19 mg/dL [facility] CREATININE 0.50 0.5 - 1.5 mg/dL [facility] GLUCOSE 57(L) 70 - 99 mg/dL [facility] CALCIUM 8.6 8.4 - 10.3 mg/dL [facility] EGFR 103 >59 mL/min/1.7 3m2 [facility] Comment:Estimated glomerular filtration rate calculated using the CKD-EPI refit equation. ANION GAP 17 10 - 20 mmol/L [facility] Blood 07/23/2023 2:03 PM EDT 07/23/2023 2:06 PM EDT Yulisa Gregg PA-C LAB BLOOD ORDERA BLES Final Result [facility] [address] [place] [address] from Last 3 Months or Most Recently Relevant to Health Maintenance Insurance [facility] MEDICARE PART A & B [facility] MEDICARE REPLACEMENT [place] MEDICARE PART A & B [facility] MEDICARE REPLACEMENT [place] MEDICARE PART A & B Member Subscriber Plan / Payer (Ef fective 2004-Present) Name:Lisha Valderramaina Member ID:[id number] Relation to Subscriber:Self Name:Lisha Valderramaina Subscriber ID:[id number] Payer ID:[id number] Group ID:Not on file Type:Medicare Address: [employer] [address] [place] [id number] [place] [address] MEDICARE REPLACEMENT [facility] MEDICARE PART A & B [facility]IC[facility] B [facility] MEDICARE REPLACEMENT [facility] MEDICARE PART A & B [facility] A[facility] MEDICARE REPLACEMENT Care Teams Head Banquet Waitress Relationship Specialty Start Date End Date Erick Villanueva MD [address] [place] [address] [place] [address] PCP - General Internal Medicine 07/23/23 Additional Source Comments The information contained in this document represents components of the legal health record. It is not the complete legal health record.[facility]
== END 2024-10-12 14:26 | disposition home or self-care (01) ==
LOC: HO.HMCH 13:27
PROVIDERS: PCP Internal Medicine; Visit Provider Internal Medicine
DX: I69.351 Hemiplegia and hemiparesis following cerebral infarction affecting right dominant side (principal); I63.9 Cerebral infarction, unspecified; E11.65 Type 2 diabetes mellitus with hyperglycemia; G24.9 Dystonia, unspecified; E78.00 Pure hypercholesterolemia, unspecified; I10 Essential (primary) hypertension; Z86.711 Personal history of pulmonary embolism; M79.7 Fibromyalgia; M17.0 Bilateral primary osteoarthritis of knee; M19.011 Primary osteoarthritis, right shoulder; G56.03 Carpal tunnel syndrome, bilateral upper limbs; J45.40 Moderate persistent asthma, uncomplicated

== ENCOUNTER → 2024-10-12 13:26 | Outpatient (BNVA) | payer MEDICARE, SELFPAY | PROVIDERS: PCP Internal Medicine; Visit Provider Internal Medicine | DX: G24.9 Dystonia, unspecified (principal); E78.00 Pure hypercholesterolemia, unspecified; E11.65 Type 2 diabetes mellitus with hyperglycemia; I10 Essential (primary) hypertension; M79.7 Fibromyalgia; M17.0 Bilateral primary osteoarthritis of knee; M19.011 Primary osteoarthritis, right shoulder; Z86.711 Personal history of pulmonary embolism; G56.03 Carpal tunnel syndrome, bilateral upper limbs; J45.40 Moderate persistent asthma, uncomplicated; K21.9 Gastro-esophageal reflux disease without esophagitis; L72.0 Epidermal cyst; E53.8 Deficiency of other specified B group vitamins; E55.9 Vitamin D deficiency, unspecified; E66.9 Obesity, unspecified; Z68.28 Body mass index [BMI] 28.0-28.9, adult; Z86.73 Personal history of transient ischemic attack (TIA), and cerebral infarction without residual deficits; Z71.3 Dietary counseling and surveillance | CPT/HCPCS: 96127; 99212 ==

== ENCOUNTER 2024-10-19 15:08 | Outpatient (AMB) | payer MEDICARE, MEDICAID, SELFPAY ==
[2024-10-19 15:10] VITALS: BP 192/96; PULSE 87; BMI 28.3
--- NOTE | 2024-10-19 15:10 | A.OFFVIS_ITS ---
Vital Signs 10/19/24 15:10 Height 5 ft 7 in Weight 180 lb 12.465 oz BMI 28.3 BP 192/96 H Blood Pressure Location Rt brachial Position Sitting Pulse 87 Pulse Source Pulse Oximeter Oxygen Delivery Method Room Air Intake Visit Reasons: T2DM Intake Note: Patient present today to follow up on Type 2 Diabetes Mellitus. 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 Random Glucose: 213 mg/dL Most Recent HgA1C: 11.7% 09/15/2024 Commissary Clerk Required: No Accompanied by: Daughter Allergies Penicillins (PENICILLINS) Allergy (Severe, Verified 10/19/24 15:13) SOB, rash, itching codeine (CODEINE) Allergy (Intermediate, Verified 10/19/24 15:13) RASH SOB oxycodone (From PERCOCET) Allergy (Intermediate, Verified 10/19/24 15:13) RASH SOB kiwi (KIWI) Allergy (Mild, Verified 10/19/24 15:13) ITCHY IF TOUCHES pineapple (PINEAPPLE) Allergy (Mild, Verified 10/19/24 15:13) ITCHY IF TOUCHES metformin Adverse Reaction (Intermediate, Verified 10/19/24 15:13) dizziness, blurred vision HPI Comments Details: 68 YO F with PMHx T2DM who is seen in F/U for T2DM. Initially diagnosed with T2DM in 2001. Previous medications: Metformin and Jardiance which were both stopped secondary to side effects Current meds: Lantus 32 units Humalog-sliding scale. She is sometimes taking more than prescribed and has infrequently forgotten and repeated dose. Today, change to10 units tid before meals Mounjaro 2.5mg weekly. Was transitioned from Trulicity 1.5mg weekly CGM-GMI 9.1% -high 81%, TGT 18%, low 1%. Treats lows with juice. Checks sugar after to ensure it is rising. Treats according to rule of 15's. Family history of T2DM in her Mother and Sister. Has retinopathy Last eye exam September 2024 Has neuropathy. Symptoms reported: Numbness, tingling, no pain or cramping does not see podiatry Has nephropathy, on Losartan 100 mg PO daily. 10/29/2023 microalbumin 16.0 11/13/2023 eGFR>60 Has HLD, on Atorvastatin 40 mg PO daily and Zetia 10 mg PO daily. Denies CAD. [facility] Medical History (Updated 10/17/24 @ 01:01 by Erick Villanueva MD) Bacteremia Primary osteoarthritis, right shoulder CVA (cerebral vascular accident) Bleeding hemorrhoids Carpal tunnel syndrome, bilateral Internal and external hemorrhoids without complication Diverticulosis Rectal bleed Varicose veins of both lower extremities with pain Hx pulmonary embolism Rectal bleeding Obesity (BMI 30-39.9) Overactive bladder Migraine GERD without esophagitis Allergic rhinitis Fibromyalgia Vitamin B12 deficiency Asthma Bilateral primary osteoarthritis of knee Pure hypercholesterolemia Benign essential hypertension Bilateral lower extremity edema Mammogram abnormal Intertrigo Breast nodule Goiter Vitamin D deficiency HLD (hyperlipidemia) T2DM (type 2 diabetes mellitus) Arthritis Breast pain, right Calcific tendinitis of right hip Right lumbar radiculopathy Right hip pain Low back pain Surgical History Hx of breast surgery History of colonoscopy History of mammogram History of incision and drainage Hx of cataract extraction Hx of cholecystectomy Hx of tubal ligation Hx of eye surgery History of tonsillectomy and adenoidectomy Family History Father Hypertension Myocardial infarction Stroke Mother Hypertension Diabetes Social History Household Members: Spouse and Children Housing: Homeless Are you a primary care professional to a significant other at home: No Do you presently have visiting nurse or other home services: No Alcohol intake: never Patient Tobacco Use Status: Never used Tobacco e-Cigarette/Vaping Use: Never Used Second Hand Smoke Exposure: No service: No Current occupational status: disabled Cognitive needs: No Hearing needs: No Vision needs: Yes (Glasses) Physical Exam Vital Signs: Last Vital Signs Pulse 87 10/19/24 15:10 BP 192/96 H 10/19/24 15:10 Oxygen Delivery Method Room Air 10/19/24 15:10 BMI result Body Mass Index 28.3 Results Reviewed Results Reviewed: Laboratory Last Values Glucose (Clinic) 213 mg/dL (60-115) H 10/19/24 15:16 Assessment & Plan Assessment & Plan (1) T2DM (type 2 diabetes mellitus): Code(s): E11.9 - Type 2 diabetes mellitus without complications Category: Medical Qualifiers: 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 child watch attendant insulin use: with child watch attendant use 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 complication status: with hyperglycemia Qualified Code(s): E11.65 - Type 2 diabetes mellitus with hyperglycemia; Z79.4 - half-way (current) use of insulin Plan Type 2 diabetes with hyperglycemia, hypoglycemia Increase once daily insulin to 36 units Decrease mealtime to 10 units TID, avoid repeat dosing Continue mounjaro 2.5mg weekly. Treat hypoglycemia by rules of 15s. close follow up Medications: Changed From insulin glargine (Lantus Solostar U-100 Insulin) 32 units (0.32 mL) subcut QPM 15 mL 0RF To Lantus Solostar U-100 Insulin (insulin glargine) 36 units (0.36 mL) subcut QPM 33 mL 1RF NS From insulin lispro (Humalog U-100 Insulin) See Protocol subcut TIDAC To insulin lispro (Humalog U-100 Insulin) 10 sliding scale doses See Protocol subcut TIDAC 10 mL 1RF Refilled Mounjaro (tirzepatide) for 4 weeks 2.5 mg (0.5 mL) subcut QWEEK 2 mL 7RF NS Coding Level of Care Code Est Pt Level 4 (30908) Diagnoses Type 2 diabetes mellitus with hyperglycemia, with long-term current use of insulin E11.65; Z79.4 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 child watch attendant insulin use: with retirement use 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 complication status: with hyperglycemia
[2024-10-19 15:20] LABS: Glucose, Whole Blood 213 mg/dL (60-115)
--- OUTSIDE RECORDS SUMMARY | 2024-10-19 15:52 | XMS_ITS | Clinical Summary ---
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 Active dulaglutide (TRULICITY) 1.5 mg/0.5 mL subcutaneous injection Inject 1.5 mg under the skin once a week. Active insulin lispro (ADMELOG, HUMALOG) 100 unit/mL injection pen Inject 2-10 Units under the skin 3 (three) times a day before meals. VIA SS Active insulin glargine 100 unit/mL (3 mL) InPn injection pen Inject 32 Units under the skin daily. Active acetaminophen (TYLENOL) 325 mg tablet Take 650 mg by mouth every 4 (four) hours as needed for fever, headache or pain (specific location in comments). Active Encounters Date Type Department Care Team Description 10/19/2024 [facility] Visit [facility] [address] [place] [address] Consuelo Garcia, PT TELEPHONE ENCOUNTER 10/13/2024 3:00 AM EDT Home Care Visit [facility] [address] [place] [address] Livia Baez RN SN DISCIPLINE DISCHARGE NON VISIT/TELEPHONE 10/11/2024 Home Care Visit [facility] [address] [place] [address] Regine Ramirez, PT CASE COMMUNICATION 10/10/2024 Episode Documentation Update [facility] [address] [place] [address] Dillan Villalpando 10/06/2024 Home Care Visit [facility] [address] [place] [phone] Regine Ramirez, PT CASE COMMUNICATION 10/04/2024 Home Care Visit [facility] [address] [place] [address] Luh Hodge, OT TELEPHONE ENCOUNTER 09/30/2024 8:00 AM EDT Home Care Visit [facility] [address] [place] [address] Osiris Goldberg RN CASE COMMUNICATION 09/29/2024 Home Care Visit [facility] [address] [place] [address] Luh Hodge, OT TELEPHONE ENCOUNTER 09/27/2024 Home Care Visit [facility] [address] [place] [address] Luh Hodge, OT TELEPHONE ENCOUNTER 09/26/2024 Home Care Visit [facility] [address] [place] [address] Luh Hodge, OT TELEPHONE ENCOUNTER 09/22/2024 Home Care Visit [facility] [address] [place] [address] Dhara Willard, PT TELEPHONE ENCOUNTER 09/22/2024 Plan of Care Documentation [facility] [address] [place] [address] 09/21/2024 6:00 AM EDT Home Care Visit [facility] [address] [place] [address] Livia Baez, JAKOB SN OASIS START OF CARE (SOC) 09/20/2024 Home Care Visit [facility] [address] [place] [address] Yolanda Akers, JAKOB CASE COMMUNICATION 09/15/2024 Orders Only [facility] [address] [place] [address] [facility] Fabian Lira MD from Last 3 Months Social History Tobacco [...] 07/23/2023 3:10 PM EDT Plan of Treatment Health Maintenance Due Date Last Done Comments [...] EDT) SODIUM 140 133 - 146 mmol/L [facility] CHLORIDE 102 96 - 108 mmol/L [facility] POTASSIUM 3.7 3.3 - 5.1 mmol/L [facility] CO2 25 21 - 35 mmol/L [facility] BUN 17 6 - 19 mg/dL [facility] CREATININE 0.50 0.5 - 1.5 mg/dL [facility] GLUCOSE 57(L) 70 - 99 mg/dL [facility] CALCIUM 8.6 8.4 - 10.3 mg/dL [facility] EGFR 103 >59 mL/min/1.7 3m2 [facility] Comment:Estimated glomerular filtration rate calculated using the CKD-EPI refit equation. ANION GAP 17 10 - 20 mmol/L [facility] Blood 07/23/2023 2:03 PM EDT 07/23/2023 2:06 PM EDT us Yulisa Gregg PA-C LAB BLOOD ORDERA BLES Final Result [facility] [address] [place] [address] from Last 3 Months or Most Recently Relevant to Health Maintenance Insurance [facility] MEDICARE PART A & B Member Subscriber Plan / Payer (Ef fective 2004-Present) Name:Lanny Valedrrama Member ID:[id number] Relation to Subscriber:Self Name:Lanny Valderrama Subscriber ID:[id number] Payer ID:[id number] Group ID:Not on file Type:Medicare Address: [employer] [facility]. [address] [place] [address] [facility] B [facility] B [facility] MEDIC[facility]PLACEMENT [facility] MEDICARE PART A & B [facility] MEDIC[facility] REPLACEMENT [facility] MEDICARE PART A & B [facility] MEDIC[facility] REPLACEMENT [facility] MEDIC[facility] PART A & B Member Subscriber Plan / Payer (Ef fective 2004-Present) Name:Lanny Valderrama Member ID:[id number] Relation to Subscriber:Self Name:Lisha Valderramaina Subscriber ID:[id number] Payer ID:[id number] Group ID:Not on file Type:Medicare Address: [employer] [facility] [address] [place] [address] [facility] MEDIC[facility] REPLACEMENT Care Teams Cloth Finishing Range Back Tender Relationship Specialty Start Date End Date Erick Villanueva MD [address] [place] [address] [place] [address] PCP - General Internal Medicine 07/23/23 Additional Source Comments The information contained in this document represents components of the legal health record. It is not the complete legal health record.[facility]
== END 2024-10-19 15:43 | disposition home or self-care (01) ==
LOC: HO.ENCR 15:09
PROVIDERS: PCP Internal Medicine; Visit Provider Internal Medicine
DX: E11.65 Type 2 diabetes mellitus with hyperglycemia (principal); Z79.4 Long term (current) use of insulin

== ENCOUNTER → 2024-10-19 15:08 | Outpatient (BNVA) | payer MEDICARE, MEDICAID, SELFPAY | PROVIDERS: PCP Internal Medicine; Visit Provider Internal Medicine | DX: E11.65 Type 2 diabetes mellitus with hyperglycemia (principal); Z79.4 Long term (current) use of insulin | CPT/HCPCS: 82947; 99212 ==

== ENCOUNTER 2024-11-15 13:20 | Outpatient (AMB) | payer MEDICARE, SELFPAY ==
[2024-11-15 13:42] VITALS: BMI 28.2
--- NOTE | 2024-11-15 13:42 | MHC.OFFVIS ---
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 Patient reports it has been present since May,, does not think she got injured in any way. She states it is painful and it fluctuates in size. She takes Tramadol for other health problems with some relief. Denies numbness, tingling. 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 Patient reports it has been present since May,, does not think she got injured in any way. She states it is painful and it fluctuates in size. She takes Tramadol for other health problems with some relief. Denies numbness, tingling. Cyst is present at the base of the left thumb, patient denies any redness. [facility] Medical History (Updated 11/18/24 @ 09:33 by LISA Samayoa) Bacteremia Primary osteoarthritis, right shoulder CVA (cerebral vascular accident) Bleeding hemorrhoids Carpal tunnel syndrome, bilateral Internal and external hemorrhoids without complication Diverticulosis Rectal bleed Varicose veins of both lower extremities with pain Hx pulmonary embolism Rectal bleeding Obesity (BMI 30-39.9) Overactive bladder Migraine GERD without esophagitis Allergic rhinitis Fibromyalgia Vitamin B12 deficiency Asthma Bilateral primary osteoarthritis of knee Pure hypercholesterolemia Benign essential hypertension Bilateral lower extremity edema Mammogram abnormal Intertrigo Breast nodule Goiter Vitamin D deficiency HLD (hyperlipidemia) T2DM (type 2 diabetes mellitus) Arthritis Breast pain, right Calcific tendinitis of right hip Right lumbar radiculopathy Right hip pain Low back pain Surgical History Hx of breast surgery History of colonoscopy History of mammogram History of incision and drainage Hx of cataract extraction Hx of cholecystectomy Hx of tubal ligation Hx of eye surgery History of tonsillectomy and adenoidectomy Family History Father Hypertension Myocardial infarction Stroke Mother Hypertension Diabetes Social History Household Members: Spouse and Children Housing: Homeless Are you a primary career services director to a significant other at home: No Do you presently have visiting nurse or other home services: No Alcohol intake: never Patient Tobacco Use Status: Never used Tobacco e-Cigarette/Vaping Use: Never Used Second Hand Smoke Exposure: No service: No Current occupational status: disabled Cognitive needs: No Hearing needs: No Vision needs: Yes (Glasses) Review of Systems Const All systems reviewed & are unremarkable except as noted in HPI and below Physical Exam Vital Signs: BMI result Body Mass Index 28.2 Extrem Other: Patient is alert, oriented, and in no acute distress. Neuro: Normal sensation of the tips of all digits of the left hand at this time Vascular: Cap refill brisk Pain: Mild tenderness to palpation about mass of the base of the left thumb No pain with range of motion of the left thumb ROM: Patient is able to make a closed fist and extend all digits of the left hand fully and without difficulty Skin: No lacerations or abrasions. General: There is an approximately 1-2 cm in diameter ganglion cyst at the base of the left thumb No ecchymosis, erythema, or evidence of infection. Psych: Appears grossly normal Affect normal Attitude cooperative Assessment & Plan Assessment & Plan (1) Ganglion cyst of volar aspect of left wrist: Code(s): M67.432 - Ganglion, left wrist Category: Medical Plan 1. Ganglion cyst of the left wrist Patient is educated about this condition Patient is educated about the treatment options available, namely surgical intervention, as the location of this cyst in the volar aspect of the left wrist makes needle aspiration unsafe given proximity to significant anatomic structures, such of the radial artery Patient states that she would not like any acute intervention at this time Patient is educated that she should follow-up with us if she does become interested in surgical intervention for this ganglion cyst, or if it begins to show any signs or symptoms of becoming infected, such as increasing redness, swelling, pain, or discharge Patient understands this is amenable to this plan Follow-up as needed Coding Level of Care Code New Pt Level 3 (58440) Diagnoses Ganglion cyst of volar aspect of left wrist M67.432
--- OUTSIDE RECORDS SUMMARY | 2024-11-15 14:12 | XMS_ITS | Clinical Summary ---
Author Organization [facility] Address [address] [address] Phone Care Team Providers Care Title Department Manager Name Role Phone Erick Villanueva MD Primary Care Provider [phone] Allergies Active Allergy Reactions Criticality Noted Date [...] Active ferrous sulfate 325 mg (65 mg three affiliated iron) tablet Take 325 mg by mouth [...] Care Team Description 10/19/2024 [facility] [address] [place] [address] Consuelo Garcia, PT TELEPHONE ENCOUNTER 10/13/2024 3:00 AM EDT [facility] [address] [place] [address] Livia Baez RN SN NON OASIS DISCHARGE NON VISIT/TELEPHONE 10/11/2024 Home Care Visit [facility] [address] [place] [address] Regine Ramirez, PT CASE COMMUNICATION 10/10/2024 Episode Documentation [facility] [address] [place] [address] Dillan Villalpando 10/06/2024 [facility] [address] [place] [id number] Regine Ramirez, PT CASE COMMUNICATION 10/04/2024 [facility] Care Visit [facility] [address] [place] [address] Luh Hodge, OT TELEPHONE ENCOUNTER 09/30/2024 8:00 AM EDT Home Care Visit [facility] [address] [place] [address] Osiris Goldberg, JAKOB CASE COMMUNICATION 09/29/2024 Home Care Visit [facility] [address] [place] [address] Luh Hodge, OT TELEPHONE ENCOUNTER 09/27/2024 Home Care Visit [facility] [address] [place] [address] Luh Hodge, OT TELEPHONE ENCOUNTER 09/26/2024 Home Care Visit [facility] [address] [place] [address] Luh Hodge, OT TELEPHONE ENCOUNTER 09/22/2024 Home Care Visit [facility] [address] [place] [address] Dhara Willard, PT TELEPHONE ENCOUNTER 09/22/2024 Plan of Care Documentation [facility] [address] [place] [address] 09/21/2024 6:00 AM EDT Home Care Visit [facility] [address] [place] [address] Livia Baez, JAKOB SN OASIS START OF CARE (SOC) 09/20/2024 Home Care Visit [facility] [address] [place] [address] Yolanda Akers, RN CASE COMMUNICATION 09/15/2024 Orders Only [facility] [address] [place] [address] Homehealth, Fabian Lira MD from Last 3 Months [...] EDT) SODIUM 140 133 - 146 mmol/L [facility] CHLORIDE 102 96 - 108 mmol/L [facility] POTASSIUM 3.7 3.3 - 5.1 mmol/L [facility] CO2 25 21 - 35 mmol/L [facility] BUN 17 6 - 19 mg/dL [facility] CREATININE 0.50 0.5 - 1.5 mg/dL [facility] GLUCOSE 57(L) 70 - 99 mg/dL [facility] CALCIUM 8.6 8.4 - 10.3 mg/dL [facility] EGFR 103 >59 mL/min/1.[address] [facility] Comment:Estimated glomerular filtration rate calculated using the CKD-EPI refit equation. ANION GAP 17 10 - 20 mmol/L [facility] Blood 07/23/2023 2:03 PM EDT 07/23/2023 2:06 PM EDT us Yulisa Gregg PA-C LAB BLOOD ORDERA BLES Final Result [facility] [address] [place] [address] from Last 3 Months or Most Recently Relevant to Health Maintenance Insurance [facility] MEDICARE PART A & B [facility] MED[facility]EMENT [place] MED[place]ARE PART A & B [facility] MED[facility] REPL[facility]EMENT [place] MED[place]ARE PART [facility] & [facility] MED[facility]PLACEMENT [facility] MEDICARE PART A & [facility] MED[facility] REPLACEMENT [facility] MEDIC[facility] PART A & B [facility] MED[facility] REPLACEMENT Care Teams Title Department Manager Relationship Specialty Start Date End Date Erick Villanueva MD [address] [place] [address] [place] [address] PCP - General Internal Medicine 07/23/23 Additional Source Comments The information contained in this document represents components of the legal health record. It is not the complete legal health record.[facility]
--- OUTSIDE RECORDS SUMMARY | 2024-11-15 14:12 | XMS_ITS | Encounter Summary ---
Author Organization Loc[facility] Address [address] [facility] [address] [place] [id number] Phone Care Team Providers Care Sample Dye Mixer Name Role Phone Erick Villanueva MD Primary Care Provider [phone] Encounter Details Date Type Department Care Team (Late st Contact Info) Description 07/23/2023 Procedure Pass [facility], Ct Scan - [address] [address] Social History Tobacco Use Types Packs/Day Years Used Date Smoking Tobacco: Never Assessed Education Answer Date Recorded Are you interested [...] Don't know 07/23/2023 2: 04 PM EDT documented as of this encounter Functional Status * Calculated C-SSRS Risk Score (Lifetime/Recent) Answer Date of Assessment Author No Risk Indicated 07/23/2023 1:55 PM EDT Jovi Akins RN * [place] Suicide Severity Rating Scale (Screener/Recent Self-Report) Question Answer Date of Assessment Author 1. Wish to be (Past 1 Month) No 024 1:55 PM EDT Jovi Akins RN 2. Non-Specific Active Suici vanna Thoughts (Past 1 Month) No 07/23/2023 1:55 PM EDT Jori Akins RN 6. Suicidal Behavior (Lifetime) No 1:55 PM EDT Jovi Akins RN documented as of this encounter Plan of Treatment Not on file documented as of this encounter Visit Diagnoses Not on filedocumented in this encounter Care Teams Sample Dye Mixer Relationship Specialty Start Date End Date Erick Villanueva MD [address] [place] [address] [place] [address] PCP - General Internal Medicine 07/23/23 documented as of this encounter Additional Source Comments The information contained in this document represents components of the legal health record. It is not the complete legal health record.[facility]
--- OUTSIDE RECORDS SUMMARY | 2024-11-15 14:12 | XMS_ITS | Encounter Summary ---
Author Organization [facility] Address [address] [facility] [address] [place] [phone] Phone Care Team Providers Care Registration Coordinator Name Role Phone Erick Villanueva MD Primary Care Provider [phone] Encounter Details Date Type Department Care Team (Late st Contact Info) Description 07/23/2023 Procedure Pass [facility], Ct Scan - [address] [address] Social History Tobacco Use Types Packs/Day Years [...] 1:55 PM EDT Jovi Akins RN * [place] Suicide Severity Rating Scale (Screener/Recent Self-Report) Question [...] on filedocumented in this encounter Care Teams Registration Coordinator Relationship Specialty Start Date End Date Erick Villanueva MD [address] [place] [address] [place] [address] PCP - General Internal Medicine 07/23/23 documented as of this encounter Additional Source Comments The information contained in this document represents components of the legal health record. It is not the complete legal health record.[facility]
== END 2024-11-15 14:02 | disposition home or self-care (01) ==
LOC: HO.HOS 13:20
PROVIDERS: PCP Internal Medicine
DX: M67.432 Ganglion, left wrist (principal)
CPT/HCPCS: 99203

== ENCOUNTER → 2024-11-15 13:20 | Outpatient (BNVA) | payer MEDICARE, SELFPAY | PROVIDERS: PCP Internal Medicine | DX: M67.432 Ganglion, left wrist (principal) | CPT/HCPCS: 99202 ==

== ENCOUNTER 2024-11-23 15:02 | Outpatient (AMB) | payer MEDICARE, MEDICAID, SELFPAY ==
--- NOTE | 2024-11-23 15:03 | MHC.OFFVIS ---
Vital Signs 11/23/24 15:14 Height 5 ft 7 in Weight 184 lb 4.903 oz BMI 28.9 BP 156/90 H Blood Pressure Location Lt brachial Position Sitting Pulse 90 Pulse Source Pulse Oximeter Pulse Oximetry (%) 99 Oxygen Delivery Method Room Air Intake Visit Reasons: T2DM needs MD Intake Note: Patient present today to follow up on Type 2 Diabetes Mellitus. Last Diabetic Eye exam: Due, has an appointment February 2025 Last Podiatry Visit: Does not see a Commercial Construction Project Manager Random Glucose: 177 mg/dl HgA1C: 11.7% 09/15/2024 Patient Service Coordinator Required: No Accompanied by: Daughter Allergies Penicillins (PENICILLINS) Allergy (Severe, Verified 11/23/24 15:15) SOB, rash, itching codeine (CODEINE) Allergy (Intermediate, Verified 11/23/24 15:15) RASH SOB oxycodone (From PERCOCET) Allergy (Intermediate, Verified 11/23/24 15:15) RASH SOB kiwi (KIWI) Allergy (Mild, Verified 11/23/24 15:15) ITCHY IF TOUCHES pineapple (PINEAPPLE) Allergy (Mild, Verified 11/23/24 15:15) ITCHY IF TOUCHES metformin Adverse Reaction (Intermediate, Verified 11/23/24 15:15) dizziness, blurred vision Medication List - Last Reconciled 11/23/24 by Taj Velez MD acetaminophen 650 mg PO Q4H PRN albuterol sulfate 2.5 mg (3 mL) continuous nebulization Q4-6H PRN amlodipine 10 mg PO DAILY ascorbate calcium (vitamin C) 500 mg PO DAILY 90 days aspirin (Adult Aspirin Regimen) 81 mg PO DAILY 90 days atorvastatin 80 mg PO DAILY blood pressure monitor As directed blood sugar diagnostic (OneTouch Ultra Test strips) 5 times per day blood sugar diagnostic (FreeStyle Lite Strips) As directed to test blood sugar three times a day blood-glucose meter (FreeStyle Franklin Lite kit) As directed blood-glucose meter (OneTouch Ultra2 Meter kit) As directed 3x/day blood-glucose sensor (FreeStyle Carol 3 Plus Sensor device) As directed every 15 days carvedilol (Coreg) 25 mg PO BID 90 days chlorpromazine 50 mg PO TID cholecalciferol (vitamin D3) 5,000 units PO DAILY 90 days clopidogrel 75 mg PO DAILY 90 days [compression stockings Use daily as directed as needed, strength - medium; length - knee high ] cyanocobalamin (vitamin B-12) 1,000 mcg PO DAILY 90 days ferrous sulfate 325 mg PO BID folic acid 1 mg PO DAILY 90 days gabapentin 400 mg PO TID 30 days glucagon 3 mg/actuation (Baqsimi) 3 mg intranasal ONCE glucose 4 grams PO Q15M PRN insulin glargine (Lantus Solostar U-100 Insulin) 32 units (0.32 mL) subcut QPM insulin lispro (Humalog U-100 Insulin) 10 sliding scale doses See Protocol subcut TIDAC lancets 5 times per day lancets (FreeStyle Lancets) As directed test blood sugar three times a day [LIGHTWEIGHT STANDARD WHEELCHAIR As directed] [LIGHTWEIGHT WHEELCHAIR As directed] losartan 100 mg PO DAILY 90 days Mounjaro (tirzepatide) 2.5 mg (0.5 mL) subcut QWEEK NS pen needle, diabetic (BD Nella 2nd Gen Pen Needle) test 5 times per day pen needle, diabetic (BD Ultra-Fine Micro Pen Needle) 5 times a day as directed - Lantus QD and Humalog QID pioglitazone 15 mg PO DAILY 30 days potassium chloride ER 10 mEq PO DAILY [ROLLATOR As directed] tramadol 50 mg PO TID PRN 30 days [Transport wheel chair As directed] Ventolin HFA 90 mcg/actuation (albuterol sulfate) 2 puffs inhalation Q4-6H PRN NS [WALKER LEG RUBBER TIPS As directed] HPI Comments Details: 69 YO F with PMHx T2DM who is seen in F/U for T2DM. The patient last saw Erika Das NP on 08/03/24 Initially diagnosed with T2DM in 2001. Previous medications: Metformin and Jardiance which were both stopped secondary to side effects Current meds: Lantus 36 units Novolog 10 units tid before meals Mounjaro 2.5 mg Qwkly Carol download over 14 days shows avg glucose of 161 . GMI over last 30 days =8.1 TIR=77% 23 % hyperglycemia Occasional hypoglycemia Treats lows with juice. Checks sugar after to ensure it is rising. Treats according to rule of 15's. Family history of T2DM in her Mother and Sister. Has retinopathy Last eye exam seeing 2024 Has neuropathy. Symptoms reported: Numbness, tingling, no pain or cramping does not see podiatry Has nephropathy, on Losartan 100 mg PO daily. 10/29/2023 microalbumin 16.0 11/13/2023 eGFR>60 Has HLD, on Atorvastatin 40 mg PO daily and Zetia 10 mg PO daily. Denies CAD. [facility] Medical History (Updated 11/18/24 @ 09:33 by LISA Samayoa) Bacteremia Primary osteoarthritis, right shoulder CVA (cerebral vascular accident) Bleeding hemorrhoids Carpal tunnel syndrome, bilateral Internal and external hemorrhoids without complication Diverticulosis Rectal bleed Varicose veins of both lower extremities with pain Hx pulmonary embolism Rectal bleeding Obesity (BMI 30-39.9) Overactive bladder Migraine GERD without esophagitis Allergic rhinitis Fibromyalgia Vitamin B12 deficiency Asthma Bilateral primary osteoarthritis of knee Pure hypercholesterolemia Benign essential hypertension Bilateral lower extremity edema Mammogram abnormal Intertrigo Breast nodule Goiter Vitamin D deficiency HLD (hyperlipidemia) T2DM (type 2 diabetes mellitus) Arthritis Breast pain, right Calcific tendinitis of right hip Right lumbar radiculopathy Right hip pain Low back pain Surgical History Hx of breast surgery History of colonoscopy History of mammogram History of incision and drainage Hx of cataract extraction Hx of cholecystectomy Hx of tubal ligation Hx of eye surgery History of tonsillectomy and adenoidectomy Family History Father Hypertension Myocardial infarction Stroke Mother Hypertension Diabetes Social History Household Members: Spouse and Children Housing: Homeless Are you a primary manager progressive care to a significant other at home: No Do you presently have visiting nurse or other home services: No Alcohol intake: never Patient Tobacco Use Status: Never used Tobacco e-Cigarette/Vaping Use: Never Used Second Hand Smoke Exposure: No service: No Current occupational status: disabled Cognitive needs: No Hearing needs: No Vision needs: Yes (Glasses) Physical Exam Vital Signs: Last Vital Signs Pulse 90 11/23/24 15:14 BP 156/90 H 11/23/24 15:14 Pulse Ox 99 11/23/24 15:14 Oxygen Delivery Method Room Air 09/03/25 15:14 Absence of Cushingoid features. Absence of acromegalic features. Neck exam reveals nl size thyroid about 15 gms. No thyroid nodules palpable. No carotid bruits present. Lungs CTA. Heart S1 S2, Reg R/R. No M/R/ G. Skin exam reveals absence of vitiligo or acanthosis nigricans. Abdominal exam reveals Soft NT/ND with NA BS. No organomegaly present. Neck Other: . Extrem Other: Visual exam of foot performed. No ulcerations or open lesions. No onchomycosis, no callouses.Pulses 2 + distally Sensation intact to monofilament exam. Vibratory sensation sensed is decreased with 128 Hz tuning fork Assessment & Plan Assessment & Plan (1) T2DM (type 2 diabetes mellitus): Code(s): E11.9 - Type 2 diabetes mellitus without complications Category: Medical Qualifiers: 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 fci insulin use: with long haul truck driver use 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 complication status: with hyperglycemia Qualified Code(s): E11.65 - Type 2 diabetes mellitus with hyperglycemia; Z79.4 - correction (current) use of insulin Plan: This is a 69-year-old female with a history of type 2 diabetes being treated with Mounjaro and basal-bolus insulin with improving good glycemic control and known microvascular and macrovascular complications namely neuropathy, CKD and CVA. Plan is to increase the Mounjaro to 5 mg Q weekly . Told the patient and daughter to report any hypoglycemia for adjustment of insulin regimen. We will have patient follow up with primary care diabetes team Dr. Rios in 3 months (2) Pure hypercholesterolemia: Code(s): E78.00 - Pure hypercholesterolemia, unspecified Category: Medical Plan: LDL now at goal considering history of CVAs. Medications: New tirzepatide (Mounjaro) 5 mg (0.5 mL) subcut QWEEK 2 mL 4RF insulin glargine (Lantus U-100 Insulin) 32 units (0.32 mL) subcut DAILY 30 mL 4RF Discontinued Mounjaro (tirzepatide) for 4 weeks Discontinued Reason: Doctor's Order 2.5 mg (0.5 mL) subcut QWEEK 2 mL 7RF NS insulin glargine (Lantus Solostar U-100 Insulin) Discontinued Reason: Doctor's Order 32 units (0.32 mL) subcut QPM 15 mL 1RF Coding Level of Care Code Est Pt Level 4 (71263) Complex EM visit Add On G2211 Diagnoses Type 2 diabetes mellitus with hyperglycemia, with long-term current use of insulin E11.65; Z79.4 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 long haul truck driver insulin use: with long haul truck driver use 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 complication status: with hyperglycemia Pure hypercholesterolemia E78.00
[2024-11-23 15:14] VITALS: BP 156/90; PULSE 90; O2SAT 99; BMI 28.9
[2024-11-23 15:26] LABS: Glucose, Whole Blood 177 mg/dL (60-115)
--- OUTSIDE RECORDS SUMMARY | 2024-11-23 17:12 | XMS_ITS | Clinical Summary ---
Author Organization [facility] Address [address] [address] Phone Care Team Providers Care Commodity Director Name Role Phone Erick Villanueva MD Primary Care Provider [phone] [phone] Allergies Active Allergy Reactions Criticality Noted Date [...] Active ferrous sulfate 325 mg (65 mg tonawanda iron) tablet Take 325 mg by mouth [...] Care Team Description 10/19/2024 [facility] [address] [place] [address] Consuelo Garcia, PT TELEPHONE ENCOUNTER 10/13/2024 3:00 AM EDT [facility] [address] [place] [address] Livia Baez RN SN NON OASIS DISCHARGE NON VISIT/TELEPHONE 10/11/2024 [facility] Visit [facility] [address] [place] [address] Regine Ramirez, PT CASE COMMUNICATION 10/10/2024 Episode Documentation Update [facility] [address] [place] [address] Dillan Villalpando 10/06/2024 [facility] [address] [place] [phone] Regine Ramirez, PT CASE COMMUNICATION 10/04/2024 [facility] Visit [facility] [address] [place] [address] Luh Hodge, OT TELEPHONE ENCOUNTER 09/30/2024 8:00 AM EDT Home [facility] Visit [facility] [address] [place] [address] Osiris Goldberg, JAKOB CASE COMMUNICATION 09/29/2024 Home Care Visit [facility] [address] [place] [address] Luh Hodge, OT TELEPHONE ENCOUNTER 09/27/2024 Home Care Visit [facility] [address] [place] [address] Luh Hodge, OT TELEPHONE ENCOUNTER 09/26/2024 Home Care Visit [facility] [address] [place] [address] Luh Hodge, OT TELEPHONE ENCOUNTER 09/22/2024 Home Care Visit [facility] [address] [place] [address] Dhara Willard, PT TELEPHONE ENCOUNTER 09/22/2024 Plan of Care Documentation [facility] [address] [place] [address] 09/21/2024 6:00 AM EDT Home Care Visit [facility] [address] [place] [address] Livia Baez, JAKOB SN OASIS START OF CARE (SOC) 09/20/2024 Home Care Visit [facility] [address] [place] [address] Yolanda Akers, RN CASE COMMUNICATION 09/15/2024 Orders Only [facility] [address] [place] [address] Homehealth, Fabian Lira MD from Last 3 [...] EDT) SODIUM 140 133 - 146 mmol/L [facility] CHLORIDE 102 96 - 108 mmol/L [facility] POTASSIUM 3.7 3.3 - 5.1 mmol/L [facility] CO2 25 21 - 35 mmol/L [facility] BUN 17 6 - 19 mg/dL [facility] CREATININE 0.50 0.5 - 1.5 mg/dL [facility] GLUCOSE 57(L) 70 - 99 mg/dL [facility] CALCIUM 8.6 8.4 - 10.3 mg/dL [facility] EGFR 103 >59 mL/min/1.7 3m2 [facility] Comment:Estimated glomerular filtration rate calculated using the CKD-EPI refit equation. ANION GAP 17 10 - 20 mmol/L [facility] Blood 07/23/2023 2:03 PM EDT 07/23/2023 2:06 PM EDT us Yulisa Gregg PA-C LAB BLOOD ORDERA BLES Final Result [facility] [address] [place] [address] from Last 3 Months or Most Recently Relevant to Health Maintenance Insurance [facility] MEDICARE PART A & B [facility] [place] A [place] B [facility] [place] MED[place] A [place] B [facility] MEDIC[facility] REPLACEMENT [facility]IC[facility] PART A & B [facility] REPLACEMENT [facility] MEDICARE PART A & B [facility] MEDIC[facility] REPLACEMENT Care Teams Commodity Director Relationship Specialty Start Date End Date Erick Villanueva MD [address] [place] [address] [place] [address] PCP - General Internal Medicine 07/23/23 Additional Source Comments The information contained in this document represents components of the legal health record. It is not the complete legal health record.[facility]
--- OUTSIDE RECORDS SUMMARY | 2024-11-23 17:12 | XMS_ITS | Encounter Summary ---
Author Organization [facility] Address 399 [facility] [address] [place] [address] Phone Care Team Providers Care Information Systems Auditor Name Role Phone Erick Villanueva MD Primary Care Provider [phone] Encounter Details Date Type Department Care Team (Late st Contact Info) Description 07/23/2023 Procedure Pass [facility], Ct Scan - [address] [address] Social History Tobacco Use Types Packs/Day Years [...] 1:55 PM EDT Jovi Akins RN * [place] Suicide Severity Rating Scale (Screener/Recent Self-Report) Question [...] on filedocumented in this encounter Care Teams Information Systems Auditor Relationship Specialty Start Date End Date Erick Villanueva MD [address] [place] [address] [place] [address] PCP - General Internal Medicine 07/23/23 documented as of this encounter Additional Source Comments The information contained in this document represents components of the legal health record. It is not the complete legal health record.[facility]
--- OUTSIDE RECORDS SUMMARY | 2024-11-23 17:12 | XMS_ITS | Encounter Summary ---
Author Organization [facility] Address 399 [facility] [address] [place] [address] Phone Care Team Providers Care Soil Science Professor Name Role Phone Erick Villanueva MD Primary Care Provider [phone] [phone] Encounter Details Date Type Department Care Team (Late st Contact Info) Description 07/23/2023 Procedure Pass [facility], Ct Scan - [address] [address] Social History Tobacco Use Types Packs/Day Years [...] 1:55 PM EDT Jovi Akins RN * [place] Suicide Severity Rating Scale (Screener/Recent Self-Report) Question [...] on filedocumented in this encounter Care Teams Soil Science Professor Relationship Specialty Start Date End Date Erick Villanueva MD [address] [place] [address] [place] [address] PCP - General Internal Medicine 07/23/23 documented as of this encounter Additional Source Comments The information contained in this document represents components of the legal health record. It is not the complete legal health record.[facility]
== END 2024-11-23 15:49 | disposition home or self-care (01) ==
LOC: HO.ENCR 15:03
PROVIDERS: PCP Internal Medicine; Visit Provider Internal Medicine Endocrinology, Diabetes & Metabolism
DX: E11.65 Type 2 diabetes mellitus with hyperglycemia (principal); Z79.4 Long term (current) use of insulin; E78.00 Pure hypercholesterolemia, unspecified
CPT/HCPCS: 99214; G2211

== ENCOUNTER → 2024-11-23 15:02 | Outpatient (BNVA) | payer MEDICARE, MEDICAID, SELFPAY | PROVIDERS: PCP Internal Medicine; Visit Provider Internal Medicine Endocrinology, Diabetes & Metabolism | DX: E11.65 Type 2 diabetes mellitus with hyperglycemia (principal); E78.00 Pure hypercholesterolemia, unspecified; Z79.4 Long term (current) use of insulin | CPT/HCPCS: 82947; 99212 ==

== ENCOUNTER 2025-01-18 15:22 | Outpatient (AMB) | payer MEDICARE, MEDICAID, SELFPAY ==
--- NOTE | 2025-01-18 15:59 | A.OFFVIS_ITS ---
Intake Intake Visit Reasons: DM Typewriter Mechanic Required: No Accompanied by: Daughter Allergies Penicillins (PENICILLINS) Allergy (Severe, Verified 11/23/24 15:15) SOB, rash, itching codeine (CODEINE) Allergy (Intermediate, Verified 11/23/24 15:15) RASH SOB oxycodone (From PERCOCET) Allergy (Intermediate, Verified 11/23/24 15:15) RASH SOB kiwi (KIWI) Allergy (Mild, Verified 11/23/24 15:15) ITCHY IF TOUCHES pineapple (PINEAPPLE) Allergy (Mild, Verified 11/23/24 15:15) ITCHY IF TOUCHES metformin Adverse Reaction (Intermediate, Verified 11/23/24 15:15) dizziness, blurred vision [facility] Medical History (Updated 11/18/24 @ 09:33 by LISA Samayoa) Bacteremia Primary osteoarthritis, right shoulder CVA (cerebral vascular accident) Bleeding hemorrhoids Carpal tunnel syndrome, bilateral Internal and external hemorrhoids without complication Diverticulosis Rectal bleed Varicose veins of both lower extremities with pain Hx pulmonary embolism Rectal bleeding Obesity (BMI 30-39.9) Overactive bladder Migraine GERD without esophagitis Allergic rhinitis Fibromyalgia Vitamin B12 deficiency Asthma Bilateral primary osteoarthritis of knee Pure hypercholesterolemia Benign essential hypertension Bilateral lower extremity edema Mammogram abnormal Intertrigo Breast nodule Goiter Vitamin D deficiency HLD (hyperlipidemia) T2DM (type 2 diabetes mellitus) Arthritis Breast pain, right Calcific tendinitis of right hip Right lumbar radiculopathy Right hip pain Low back pain Surgical History Hx of breast surgery History of colonoscopy History of mammogram History of incision and drainage Hx of cataract extraction Hx of cholecystectomy Hx of tubal ligation Hx of eye surgery History of tonsillectomy and adenoidectomy Family History Father Hypertension Myocardial infarction Stroke Mother Hypertension Diabetes Social History Household Members: Spouse and Children Housing: Homeless Are you a primary student career development specialist to a significant other at home: No Do you presently have visiting nurse or other home services: No Alcohol intake: never Patient Tobacco Use Status: Never used Tobacco e-Cigarette/Vaping Use: Never Used Second Hand Smoke Exposure: No service: No Current occupational status: disabled Cognitive needs: No Hearing needs: No Vision needs: Yes (Glasses) Assessment & Plan Assessment & Plan (1) T2DM (type 2 diabetes mellitus): Code(s): E11.9 - Type 2 diabetes mellitus without complications Qualifiers: 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 assisted insulin use: with assisted use 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 complication status: with hyperglycemia Qualified Code(s): E11.65 - Type 2 diabetes mellitus with hyperglycemia; Z79.4 - care home (current) use of insulin Plan: Learning objectives: The patient was provided with verbal and written education on the following topics as outlined below. Assess patient education level/literacy/barriers, patient at visit with daughter. Patient reports she has been out of sensors for approximately a month. Has current prescription at pharmacy recommended family contact pharmacy [facility] prescriptions for sensors,baqsimi and glucose tabs. Patient questions/concerns, patient given Carol 3 sensor sample The patient met all learning objectives and was able to verbalize understanding and provide teach back of education topics discussed . The patient was provided with the opportunity to ask questions and all questions were answered. Topics covered in today?s session included: Medications (If applicable) * Name of medication? * Dosing/administration instructions? * Mechanism of action? * Potential side effects? Baqsimi is a nasal spray that contains the hormone glucagon. Glucagon is the hormone that increases blood sugar by working on the liver to release glucose into the blood. Baqsimi should only be given if you are unable to treat hypoglycemia by taking oral intervention Giving the dose Baqsimi * Hold Device between fingers and thumb. Do not push Plunger yet. * Insert Tip gently in one nostril until finger(s) touch the outside of the nose. * Push Plunger firmly all the way in * Once dose has been administered, call EMS or provider * If after 15 minutes patient is still unable to treat hypoglycemia orally give 2nd dose if available The most common side effects of BAQSIMI include: ? nausea ? vomiting ? headache ? runny nose ? discomfort in your nose ? stuffy nose ? redness in your eyes ? itchy nose, throat, and eyes ? watery eyes If patient is having frequent low blood sugars or has hypoglycemic event that requires assistance they should report it to their provider Target Goals: * Monitoring and knowing your A1C. * What can make blood glucose go up and down and preventing high and low blood glucose. * Review of blood sugar targets in expected goal range and outside of expected goal range. * Problem solving and preventing hyper/hypoglycemia. Portions of this note were created using voice recognition software, please excuse any words or phrases that may have been misinterpreted. Patient Instructions: Follow-up in 15 days for review of CGM data Coding Level of Care Code Est Pt Level 1 (68021) Diagnoses Type 2 diabetes mellitus with hyperglycemia, with long-term current use of insulin E11.65; Z79.4 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 assisted insulin use: with intermediate card tender use 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 complication status: with hyperglycemia
--- OUTSIDE RECORDS SUMMARY | 2025-01-18 19:44 | XMS_ITS | Encounter Summary ---
Author Organization [facility] Address 399 [facility] [address] [place] [address] Phone Care Team Providers Care High School Football Coach Name Role Phone Erick Villanueva MD Primary Care Provider [phone] Encounter Details Date Type Department Care Team (Late st Contact Info) Description 07/23/2023 Procedure Pass [facility], Ct Scan - [address] [address] Social History Tobacco Use Types Packs/Day Years [...] 1:55 PM EDT Jovi Akins RN * [place] Suicide Severity Rating Scale (Screener/Recent Self-Report) Question [...] on filedocumented in this encounter Care Teams High School Football Coach Relationship Specialty Start Date End Date Erick Villanueva MD [address] [place] [address] [place] [address] PCP - General Internal Medicine 07/23/23 documented as of this encounter Additional Source Comments The information contained in this document represents components of the legal health record. It is not the complete legal health record.[facility]
--- OUTSIDE RECORDS SUMMARY | 2025-01-18 19:44 | XMS_ITS | Clinical Summary ---
Author Organization [facility] Address [address] [address] Phone Care Team Providers Care Senior Ui Web Developer Name Role Phone Erick Villanueva MD Primary Care Provider [phone] [phone] Allergies Active Allergy Reactions Criticality Noted Date [...] Active ferrous sulfate 325 mg (65 mg [place] iron) tablet Take 325 mg by mouth [...] Care Team Description 10/19/2024 Home Care Visit [facility] [address] [place] [address] Consuelo Garcia, PT TELEPHONE ENCOUNTER from Last 3 Months Social History Tobacco [...] 11/18/2005 OSTEOPOROSIS SCREENING INITI AL (ONE-TIME) 11/18/2020 POTASSIUM LEVEL 07/22/2024 07/23/2023 INFLUENZA VACCINE (#1) 2024 COVID-19 VACCINE ( - 2024-2 6 season) 2024 SCREENING FOR DIABETES 07/22/2026 07/23/2023 RSV VACCINE [...] EDT) SODIUM 140 133 - 146 mmol/L [facility] CHLORIDE 102 96 - 108 mmol/L [facility] POTASSIUM 3.7 3.3 - 5.1 mmol/L [facility] CO2 25 21 - 35 mmol/L [facility] BUN 17 6 - 19 mg/dL [facility] CREATININE 0.50 0.5 - 1.5 mg/dL [facility] GLUCOSE 57(L) 70 - 99 mg/dL [facility] CALCIUM 8.6 8.4 - 10.3 mg/dL [facility] EGFR 103 >59 mL/min/1.7 3m2 [facility] Comment:Estimated glomerular filtration rate calculated using the CKD-EPI refit equation. ANION GAP 17 10 - 20 mmol/L [facility] Blood 07/23/2023 2:03 PM EDT 07/23/2023 2:06 PM EDT Yulisa Gregg PA-C LAB BLOOD ORDERA BLES Final Result [facility] [address] [address] from Last 3 Months or Most Recently Relevant to Health Maintenance [facility] B [facility] MEDICARE REPLAC[facility] [place] A & B [facility] B [facility] RE[facility] & B [facility] MEDIC[facility]PL[facility] A & B [facility] MEDICARE REPL[facility] MED[place] PART A & B Member Subscriber Plan / Payer (Ef fective 2004-Present) Name:Lanny Valderrama Member ID:[id number] Relation to Subscriber:Self Name:Lanny Valderrama Subscriber ID:[id number] Payer ID:[id number] Group ID:Not on file Type:Medicare Address: [facility] [employer] [facility] [address] [place] [address] [facility] MEDICARE REPLACEMENT Care Teams Senior Ui Web Developer Relationship Specialty Start Date End Date Erick Villanueva MD [address] [place] [address] [place] [address] PCP - General Internal Medicine 07/23/23 Additional Source Comments The information contained in this document represents components of the legal health record. It is not the complete legal health record.[facility]
--- OUTSIDE RECORDS SUMMARY | 2025-01-18 19:44 | XMS_ITS | Encounter Summary ---
Author Organization [facility] Address 399 [facility] [address] [place] [address] Phone Care Team Providers Care Rehabilitation Therapy Aide Name Role Phone Erick Villanueva MD Primary Care Provider [phone] Encounter Details Date Type Department Care Team (Late st Contact Info) Description 07/23/2023 Procedure Pass [facility], Ct Scan - [address] [address] Social History Tobacco Use Types Packs/Day Years [...] 1:55 PM EDT Jovi Akins RN * [place] Suicide Severity Rating Scale (Screener/Recent Self-Report) Question [...] on filedocumented in this encounter Care Teams Rehabilitation Therapy Aide Relationship Specialty Start Date End Date Erick Villanueva MD [address] [place] [address] [place] [address] PCP - General Internal Medicine 07/23/23 documented as of this encounter Additional Source Comments The information contained in this document represents components of the legal health record. It is not the complete legal health record.[facility]
== END 2025-01-18 16:01 | disposition home or self-care (01) ==
LOC: HO.ENCR 15:23
PROVIDERS: PCP Internal Medicine; Visit Provider Registered Nurse Diabetes Educator
DX: E11.65 Type 2 diabetes mellitus with hyperglycemia (principal); Z79.4 Long term (current) use of insulin

== ENCOUNTER → 2025-01-18 15:22 | Outpatient (BNVA) | payer MEDICARE, SELFPAY | PROVIDERS: PCP Internal Medicine; Visit Provider Registered Nurse Diabetes Educator | DX: E11.65 Type 2 diabetes mellitus with hyperglycemia (principal); Z79.4 Long term (current) use of insulin | CPT/HCPCS: 99211 ==

== ENCOUNTER 2025-01-19 14:08 | Outpatient (AMB) | payer MEDICARE, MEDICAID, SELFPAY ==
--- NOTE | 2025-01-19 14:13 | A.OFFVIS_ITS ---
Vital Signs 01/19/25 14:20 Height 5 ft 7 in Weight 185 lb 4 oz BMI 29.0 Intake Visit Reasons: epidermal cyst Intake Note: This patient presents for an assessment for epidermal cyst. Pt c/o; no complaints. Inspector Production Plastic Parts Required: No Accompanied by: Daughter Allergies Penicillins (PENICILLINS) Allergy (Severe, Verified 01/19/25 14:21) SOB, rash, itching codeine (CODEINE) Allergy (Intermediate, Verified 01/19/25 14:21) RASH SOB oxycodone (From PERCOCET) Allergy (Intermediate, Verified 01/19/25 14:21) RASH SOB kiwi (KIWI) Allergy (Mild, Verified 01/19/25 14:21) ITCHY IF TOUCHES pineapple (PINEAPPLE) Allergy (Mild, Verified 01/19/25 14:21) ITCHY IF TOUCHES metformin Adverse Reaction (Intermediate, Verified 01/19/25 14:21) dizziness, blurred vision Medication List - Last Reconciled 01/19/25 by Ck Yeung MD acetaminophen 650 mg PO Q4H PRN albuterol sulfate 2.5 mg (3 mL) continuous nebulization Q4-6H PRN amlodipine 10 mg PO DAILY ascorbate calcium (vitamin C) 500 mg PO DAILY 90 days aspirin (Adult Aspirin Regimen) 81 mg PO DAILY 90 days atorvastatin 80 mg PO DAILY blood pressure monitor As directed blood sugar diagnostic (OneTouch Ultra Test strips) 5 times per day blood sugar diagnostic (FreeStyle Lite Strips) As directed to test blood sugar three times a day blood-glucose meter (FreeStyle Jasper Lite kit) As directed blood-glucose meter (OneTouch Ultra2 Meter kit) As directed 3x/day blood-glucose sensor (FreeStyle Carol 3 Plus Sensor device) As directed every 15 days carvedilol (Coreg) 25 mg PO BID 90 days chlorpromazine 50 mg PO TID cholecalciferol (vitamin D3) 5,000 units PO DAILY 90 days clopidogrel 75 mg PO DAILY 90 days [compression stockings Use daily as directed as needed, strength - medium; length - knee high ] cyanocobalamin (vitamin B-12) 1,000 mcg PO DAILY 90 days ferrous sulfate 325 mg PO BID folic acid 1 mg PO DAILY 90 days gabapentin 400 mg PO TID 30 days glucagon 3 mg/actuation (Baqsimi) 3 mg intranasal ONCE glucose 4 grams PO Q15M PRN insulin glargine (Lantus U-100 Insulin) 32 units (0.32 mL) subcut DAILY insulin lispro (Humalog U-100 Insulin) 10 sliding scale doses See Protocol s ubcut TIDAC lancets 5 times per day lancets (FreeStyle Lancets) As directed test blood sugar three times a day [LIGHTWEIGHT STANDARD WHEELCHAIR As directed] [LIGHTWEIGHT WHEELCHAIR As directed] losartan 100 mg PO DAILY 90 days pen needle, diabetic (BD Nella 2nd Gen Pen Needle) test 5 times per day pen needle, diabetic (BD Ultra-Fine Micro Pen Needle) 5 times a day as directed - Lantus QD and Humalog QID pioglitazone 15 mg PO DAILY 30 days potassium chloride ER 10 mEq PO DAILY [ROLLATOR As directed] tirzepatide (Mounjaro) 5 mg (0.5 mL) subcut QWEEK tramadol 50 mg PO TID PRN 30 days [Transport wheel chair As directed] Ventolin HFA 90 mcg/actuation (albuterol sulfate) 2 puffs inhalation Q4-6H PRN NS [WALKER LEG RUBBER TIPS As directed] HPI HPI epidermal cyst: Details: [age] year old female referred for a cyst on the right shoulder. She says she has noticed this small lump on the right shoulder for about 3 years now. This has been increasing in size. This has been causing her discomfort so she wants this removed. She has a history of a CVA. She has a right-sided weakness and walks around with a walker. She also had blood clots before and had been on blood thinners until years ago. [facility] Medical History (Updated 01/19/25 @ 14:30 by Ck Yeung MD) Epidermal cyst Bacteremia Primary osteoarthritis, right shoulder CVA (cerebral vascular accident) Bleeding hemorrhoids Carpal tunnel syndrome, bilateral Internal and external hemorrhoids without complication Diverticulosis Rectal bleed Varicose veins of both lower extremities with pain Hx pulmonary embolism Rectal bleeding Obesity (BMI 30-39.9) Overactive bladder Migraine GERD without esophagitis Allergic rhinitis Fibromyalgia Vitamin B12 deficiency Asthma Bilateral primary osteoarthritis of knee Pure hypercholesterolemia Benign essential hypertension Bilateral lower extremity edema Mammogram abnormal Intertrigo Breast nodule Goiter Vitamin D deficiency HLD (hyperlipidemia) T2DM (type 2 diabetes mellitus) Arthritis Breast pain, right Calcific tendinitis of right hip Right lumbar radiculopathy Right hip pain Low back pain Surgical History Hx of breast surgery History of colonoscopy History of mammogram History of incision and drainage Hx of cataract extraction Hx of cholecystectomy Hx of tubal ligation Hx of eye surgery History of tonsillectomy and adenoidectomy Family History Father Hypertension Myocardial infarction Stroke Mother Hypertension Diabetes Social History Household Members: Spouse and Children Housing: Homeless Are you a primary home care nurse to a significant other at home: No Do you presently have visiting nurse or other home services: No Alcohol intake: never Patient Tobacco Use Status: Never used Tobacco e-Cigarette/Vaping Use: Never Used Second Hand Smoke Exposure: No service: No Current occupational status: disabled Cognitive needs: No Hearing needs: No Vision needs: Yes (Glasses) Review of Systems Const Denies chills and Denies fever(s) Card Denies chest pain, Denies dyspnea and Denies dyspnea on exertion Resp Denies cough, Denies dyspnea and Denies dyspnea on exertion GI Denies hematochezia and Denies change in bowel habits Denies hematuria Musc Denies back pain and Denies limited range of motion Neuro Details: Right-sided weakness Reports focal weakness and Denies convulsions Psych Denies depression and Denies mood swings Physical Exam Vital Signs: BMI result Body Mass Index 29.0 Const Other: Uses a walker General: comfortable and no acute distress Orientation/consciousness: patient oriented x3 Neck Neck: Yes no lymphadenopathy Resp Auscultation: clear to auscultation bilaterally Cardio Rhythm: regular rhythm GI Palpation (GI): Soft to palpation, nontender and no guarding Back/Spine/Pelvis Other: On the right shoulder is note of a cystic induration about 1.5 cm in size consistent with an epidermal cyst Neuro General: patient oriented x3 Assessment & Plan Assessment & Plan (1) Epidermal cyst: Code(s): L72.0 - Epidermal cyst Category: Medical Plan: She wants this epidermal cysts removed. I explained the technique of excision under local anesthesia. I discussed the risks including but not limited to bleeding and infections, as well as the benefits and alternatives and she had given consent This will be done in the office on her next visit under local anesthesia. Coding Level of Care Code New Pt Level 3 (53342) Diagnoses Epidermal cyst L72.0
[2025-01-19 14:20] VITALS: BMI 29.0
--- OUTSIDE RECORDS SUMMARY | 2025-01-19 17:13 | XMS_ITS | Encounter Summary ---
Author Organization [facility] Address [address] [facility] [address] [place] [address] Phone Care Team Providers Care Sheet Metal Smith Name Role Phone Erick Villanueva MD Primary Care Provider [phone] [phone] Encounter Details Date Type Department Care Team (Late st Contact Info) Description 07/23/2023 Procedure Pass [facility], Ct Scan - [address] [address] Social History Tobacco Use Types Packs/Day Years [...] 1:55 PM EDT Jovi Akins RN * [place] Suicide Severity Rating Scale (Screener/Recent Self-Report) Question [...] on filedocumented in this encounter Care Teams Sheet Metal Smith Relationship Specialty Start Date End Date Erick Villanueva MD [address] [place] [address] [place] [address] PCP - General Internal Medicine 07/23/23 documented as of this encounter Additional Source Comments The information contained in this document represents components of the legal health record. It is not the complete legal health record.[facility]
--- OUTSIDE RECORDS SUMMARY | 2025-01-19 17:13 | XMS_ITS | Encounter Summary ---
Author Organization [facility] Address [address] [facility] [address] [place] [address] Phone Care Team Providers Care Terrazzo Worker Apprentice Name Role Phone Erick Villanueva MD Primary Care Provider [phone] [phone] Encounter Details Date Type Department Care Team (Late st Contact Info) Description 07/23/2023 Procedure Pass [facility], Ct Scan - [address] [address] Social History Tobacco Use Types Packs/Day Years [...] 1:55 PM EDT Jovi Akins RN * [place] Suicide Severity Rating Scale (Screener/Recent Self-Report) Question [...] on filedocumented in this encounter Care Teams Terrazzo Worker Apprentice Relationship Specialty Start Date End Date Erick Villanueva MD [address] [place] [address] [place] [address] PCP - General Internal Medicine 07/23/23 documented as of this encounter Additional Source Comments The information contained in this document represents components of the legal health record. It is not the complete legal health record.[facility]
--- OUTSIDE RECORDS SUMMARY | 2025-01-19 17:13 | XMS_ITS | Clinical Summary ---
Author Organization [facility] Address [address] [address] Phone Care Team Providers Care Hourly Sales Staff Name Role Phone Erick Villanueva MD Primary Care Provider [phone] [phone] Allergies Active Allergy Reactions Criticality Noted Date [...] Active ferrous sulfate 325 mg (65 mg [place] iron) tablet Take 325 mg by mouth [...] Care Team Description 10/19/2024 Home Care Visit [facility] [address] [place] [address] Consuelo Garcia, PT TELEPHONE ENCOUNTER [...] EDT) SODIUM 140 133 - 146 mmol/L [facility] CHLORIDE 102 96 - 108 mmol/L [facility] POTASSIUM 3.7 3.3 - 5.1 mmol/L [facility] CO2 25 21 - 35 mmol/L [facility] BUN 17 6 - 19 mg/dL [facility] CREATININE 0.50 0.5 - 1.5 mg/dL [facility] GLUCOSE 57(L) 70 - 99 mg/dL [facility] CALCIUM 8.6 8.4 - 10.3 mg/dL [facility] EGFR 103 >59 mL/min/1.7 3m2 [facility] Comment:Estimated glomerular filtration rate calculated using the CKD-EPI refit equation. ANION GAP 17 10 - 20 mmol/L [facility] Blood 07/23/2023 2:03 PM EDT 07/23/2023 2:06 PM EDT Yulisa Gregg PA-C LAB BLOOD ORDERA BLES Final Result [facility] [address] [address] from Last 3 Months or Most Recently Relevant to Health Maintenance [facility] & B [facility] MEDICARE REPLACEMENT [place] A & B [facility] MEDICARE REPLACEMENT [facility] MEDIC[facility] PART A & B [facility] MEDICARE [facility]PLACEMENT [facility]IC[facility] PART A & B [facility] MEDICARE REPLACEMENT [place] MED[place]ARE PART A & B [facility] MEDICARE REPLACEMENT [place] MED[place]ARE PART A & B [facility] MEDICARE REPLACEMENT Care Teams Hourly Sales Staff Relationship Specialty Start Date End Date Erick Villanueva MD [address] [place] [address] [place] [address] PCP - General Internal Medicine 07/23/23 Additional Source Comments The information contained in this document represents components of the legal health record. It is not the complete legal health record.[facility]
== END 2025-01-19 14:35 | disposition home or self-care (01) ==
LOC: HO.HGS 14:09
PROVIDERS: PCP Internal Medicine; Visit Provider Surgery
DX: L72.0 Epidermal cyst (principal)
CPT/HCPCS: 99213

== ENCOUNTER → 2025-01-19 14:08 | Outpatient (BNVA) | payer MEDICARE, SELFPAY | PROVIDERS: PCP Internal Medicine; Visit Provider Surgery | DX: R22.31 Localized swelling, mass and lump, right upper limb (principal); L72.0 Epidermal cyst | CPT/HCPCS: 99212 ==

== ENCOUNTER 2025-02-01 13:03 | Outpatient (AMB) | payer MEDICARE, MEDICAID, SELFPAY ==
--- NOTE | 2025-02-01 13:12 | A.OFFVIS_ITS ---
VS Expanded 02/01/25 13:42 Height 5 ft 7 in Weight 179 lb 10.828 oz BMI 28.1 Intake Visit Reasons: Type 2 diabetes mellitus with hyperglycemia Allergies Penicillins (PENICILLINS) Allergy (Severe, Verified 01/19/25 14:21) SOB, rash, itching codeine (CODEINE) Allergy (Intermediate, Verified 01/19/25 14:21) RASH SOB oxycodone (From PERCOCET) Allergy (Intermediate, Verified 01/19/25 14:21) RASH SOB kiwi (KIWI) Allergy (Mild, Verified 01/19/25 14:21) ITCHY IF TOUCHES pineapple (PINEAPPLE) Allergy (Mild, Verified 01/19/25 14:21) ITCHY IF TOUCHES metformin Adverse Reaction (Intermediate, Verified 01/19/25 14:21) dizziness, blurred vision Nutrition Presentation Details: Pt presents for MNT follow-up for type 2 diabetes Patient presents with daughter during this appointment Patient at needs to increase snacks crackers or fruits Noted per BG record patient at 50% within target, highest blood glucose after lunch B: 2 toast wth scrambled eggs, coffee Lcoffee /snack fruits, reports not have not having a lunch meal but snacking on fruits throughout the day D: Rice and beans and chicken meal and water or diet beverages PFSH Medical History (Updated 01/19/25 @ 14:30 by Ck Yeung MD) Epidermal cyst Bacteremia Primary osteoarthritis, right shoulder CVA (cerebral vascular accident) Bleeding hemorrhoids Carpal tunnel syndrome, bilateral Internal and external hemorrhoids without complication Diverticulosis Rectal bleed Varicose veins of both lower extremities with pain Hx pulmonary embolism Rectal bleeding Obesity (BMI 30-39.9) Overactive bladder Migraine GERD without esophagitis Allergic rhinitis Fibromyalgia Vitamin B12 deficiency Asthma Bilateral primary osteoarthritis of knee Pure hypercholesterolemia Benign essential hypertension Bilateral lower extremity edema Mammogram abnormal Intertrigo Breast nodule Goiter Vitamin D deficiency HLD (hyperlipidemia) T2DM (type 2 diabetes mellitus) Arthritis Breast pain, right Calcific tendinitis of right hip Right lumbar radiculopathy Right hip pain Low back pain Surgical History Hx of breast surgery History of colonoscopy History of mammogram History of incision and drainage Hx of cataract extraction Hx of cholecystectomy Hx of tubal ligation Hx of eye surgery History of tonsillectomy and adenoidectomy Family History Father Hypertension Myocardial infarction Stroke Mother Hypertension Diabetes Social History Household Members: Spouse and Children Housing: Homeless Are you a primary director day care center to a significant other at home: No Do you presently have visiting nurse or other home services: No Alcohol intake: never Patient Tobacco Use Status: Never used Tobacco e-Cigarette/Vaping Use: Never Used Second Hand Smoke Exposure: No service: No Current occupational status: disabled Cognitive needs: No Hearing needs: No Vision needs: Yes (Glasses) Assessment & Plan Assessment & Plan (1) 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: Code(s): E11.9 - Type 2 diabetes mellitus without complications Category: Medical Qualifiers: 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 type: type 2 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 fdc insulin use: without termite control technician use 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 complication status: with hyperglycemia Qualified Code(s): E11.65 - Type 2 diabetes mellitus with hyperglycemia Plan: Wt: 96 Kg ( 08/2023 ), 09/2023, 81kg(02/14) Est kcal needs as per MSJ: 1800 (40% carb, 30% protein/fat) Est fluid needs as per 25ml/d: 2400 Est prot per day as per 1 g/kg bw: 96 Recommend fiber intake : 8-10 g per day and gradually increase to 25-28 g per day for women and 35-38 g for men or as tolerated Recommend sodium intake per day : less than 2000 mg Educated patient on: ( R = reviewed V = verbalizes understanding N/R = needs review N/A = not applicable * Food sources of carbohydrate, adequate serving sizes and its role in various health conditions: R * Differences between complex carbohydrates a simple carbohydrates, role of fiber in diet: R * Lean protein sources of foods: R V NR * Differences between types of fats and role in diet (mono on saturated fat fatty acids, saturated fatty acids, trans fats): R V N/R * Food sources of sodium in salt and healthy modifications for heart health in kidney health: R V R/V * Vitamins and minerals: R V N/R * Healthy plate method concept: R * Physical activity: Benefits a precaution: R V N/R * Hypoglycemia protocol (rule of 15): R , V * Dietary prevention of Hyperglycemia: R Patient Instructions: Have a tuna salad sandwich at lunch Reduce on a snack to 1 between lunch and dinner consisting of 15 g of carbs or less see list options Follow healthy plate method at dinner, reducing on amounts of carbohydrates to improve blood sugar levels Coding Level of Care Code Nutr Indiv Subseq (84718) Diagnoses Type 2 diabetes mellitus with hyperglycemia, without long-term current use of insulin E11.65 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 type: type 2 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 fdc insulin use: without fdc use 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 complication status: with hyperglycemia Time Spent (min) 30
[2025-02-01 13:42] VITALS: BMI 28.1
--- OUTSIDE RECORDS SUMMARY | 2025-02-01 15:48 | XMS_ITS | Encounter Summary ---
Author Organization [facility] Address [address] [facility] [address] [place] [address] Phone Care Team Providers Care Kier Pleater Name Role Phone Erick Villanueva MD Primary Care Provider [phone] [phone] Encounter Details Date Type Department Care Team (Late st Contact Info) Description 07/23/2023 Procedure Pass [facility], Ct Scan - [address] [address] Social History Tobacco Use Types Packs/Day Years [...] 1:55 PM EDT Jovi Akins RN * [place] Suicide Severity Rating Scale (Screener/Recent Self-Report) Question Answer Date of Assessment Author 1. Wish to be (Past 1 Month) No 07/23/2023 1:55 PM EDT Jovi Akins RN 2. Non-Specific Active Suicidal Thoughts (Past 1 Month) No 07/23/2023 1:55 PM EDT Jovi Akins RN 6. Suicidal Behavior (Lifetime) No 07/23/2023 1:55 PM EDT Jovi Akins RN documented as of this encounter Plan of Treatment Not on file documented as of this encounter Visit Diagnoses Not on filedocumented in this encounter Care Teams Kier Pleater Relationship Specialty Start Date End Date Erick Villanueva MD [address] [place] [address] [place] [address] PCP - General Internal Medicine 07/23/23 documented as of this encounter Additional Source Comments The information contained in this document represents components of the legal health record. It is not the complete legal health record.[facility]
--- OUTSIDE RECORDS SUMMARY | 2025-02-01 15:48 | XMS_ITS | Clinical Summary ---
Author Organization [facility] Address [address] [address] Phone Care Team Providers Care Gem Expert Name Role Phone Erick Villanueva MD Primary Care Provider [phone] [phone] Allergies Active Allergy Reactions Criticality Noted Date [...] needed for pain (specific location in comments). 5 Active ferrous sulfate 325 mg (65 mg [place] iron) tablet Take 325 mg by mouth daily with breakfast. Active dulaglutide (TRULICITY) 1.5 mg/0.5 mL subcutaneous injection Inject 1.5 mg under the skin once a week. 5 Active insulin lispro (ADMELOG, HUMALOG) 100 unit/mL [...] or pain (specific location in comments). Active Social History Tobacco Use Types Packs/Day Years [...] 07/23/2023 INFLUENZA VACCINE (#1) 2024 COVID-19 VACCINE (1 - 2024-2 6 season) 2024 SCREENING FOR DIABETES 07/22/2026 07/23/2023 RSV VACCINE (1 - 1-dose 75+ series) 11/18/2030 HEPATITIS A VACCINES Aged Out No long er eligible based on patient's age to complete this topic HIB VACCINES Aged Out No longer eligi ble based on patient's age to complete this topic IPV VACCINES Aged Out No longer eligi ble [...] Date/Time Associated Diagnosis Comments BASIC METABOLIC PANEL (BMP) STAT 07/23/2023 2:03 PM EDT from Last 3 Months or Most Recently Relevant to Health Maintenance Results * (ABNORMAL) Basic metabolic panel (07/23/2023 2:03 PM EDT) SODIUM 140 133 - 146 mmol/L [facility] CHLORIDE 102 96 - 108 mmol/L [facility] POTASSIUM 3.7 3.3 - 5.1 mmol/L [facility] CO2 25 21 - 35 mmol/L [facility] BUN 17 6 - 19 mg/dL [facility] CREATININE 0.50 0.5 - 1.5 mg/dL [facility] GLUCOSE 57(L) 70 - 99 mg/dL [facility] CALCIUM 8.6 8.4 - 10.3 mg/dL [facility] EGFR 103 >59 mL/min/1.7 3m2 [facility] Comment:Estimated glomerular filtration rate calculated using the CKD-EPI refit equation. ANION GAP 17 10 - 20 mmol/L [facility] Blood 07/23/2023 2:03 PM EDT 07/23/2023 2:06 PM EDT us Yulisa Gregg PA-C LAB BLOOD BKR OR DERABLES Final Result [facility] [address] [place] [address] from Last 3 Months or Most Recently Relevant to Health Maintenance Insurance [place] A & B [facility] MEDICARE REPLACEMENT [place] PART A & B MEDICARE REPLACEMENT [facility] MEDICARE PART A & B [facility] MEDICARE REPLACEMENT [facility] MEDICARE PART A & B [facility] MEDICARE REPLACEMENT [place] MED[place] A & B [facility] MEDICARE REPLACEMENT [place] MEDICARE PART A & B [facility] MEDICARE REPLACEMENT Care Teams Gem Expert Relationship Specialty Start Date End Date Erick Villanueva MD [address] [place] [address] [place] [address] PCP - General Internal Medicine 07/23/23 Additional Source Comments The information contained in this document represents components of the legal health record. It is not the complete legal health record.[facility]
--- OUTSIDE RECORDS SUMMARY | 2025-02-01 15:48 | XMS_ITS | Encounter Summary ---
Author Organization [facility] Address [address] [facility] [address] [place] [address] Phone Care Team Providers Care Scientific Glass Blower Name Role Phone Erick Villanueva MD Primary Care Provider [phone] [phone] Encounter Details Date Type Department Care Team (Late st Contact Info) Description 07/23/2023 Procedure Pass [facility], Ct Scan - [address] [address] Social History Tobacco Use Types Packs/Day Years [...] 1:55 PM EDT Jovi Akins RN * [place] Suicide Severity Rating Scale (Screener/Recent Self-Report) Question [...] on filedocumented in this encounter Care Teams Scientific Glass Blower Relationship Specialty Start Date End Date Erick Villanueva MD [address] [place] [address] [place] [address] PCP - General Internal Medicine 07/23/23 documented as of this encounter Additional Source Comments The information contained in this document represents components of the legal health record. It is not the complete legal health record.[facility]
== END 2025-02-01 13:49 | disposition home or self-care (01) ==
LOC: HO.ENCR 13:04
PROVIDERS: PCP Internal Medicine; Visit Provider Dietitian, Registered
DX: E11.65 Type 2 diabetes mellitus with hyperglycemia (principal)

== ENCOUNTER → 2025-02-01 13:03 | Outpatient (BNVA) | payer MEDICARE, MEDICAID, SELFPAY | PROVIDERS: PCP Internal Medicine; Visit Provider Dietitian, Registered | DX: E11.65 Type 2 diabetes mellitus with hyperglycemia (principal); Z71.3 Dietary counseling and surveillance | CPT/HCPCS: 97803 ==

== ENCOUNTER 2025-02-06 15:16 | Outpatient (AMB) | payer MEDICARE, MEDICAID, SELFPAY ==
--- NOTE | 2025-02-06 15:30 | A.OFFVIS_ITS ---
Intake Intake Visit Reasons: 60 mins Defense Travel Administrator Required: Yes Defense Travel Administrator Language: Equipment Services Associate Services: Defense Travel Administrator Offered & Declined Defense Travel Administrator Name: Martha Bryan's daughter Accompanied by: Daughter Allergies Penicillins (PENICILLINS) Allergy (Severe, Verified 01/19/25 14:21) SOB, rash, itching codeine (CODEINE) Allergy (Intermediate, Verified 01/19/25 14:21) RASH SOB oxycodone (From PERCOCET) Allergy (Intermediate, Verified 01/19/25 14:21) RASH SOB kiwi (KIWI) Allergy (Mild, Verified 01/19/25 14:21) ITCHY IF TOUCHES pineapple (PINEAPPLE) Allergy (Mild, Verified 01/19/25 14:21) ITCHY IF TOUCHES metformin Adverse Reaction (Intermediate, Verified 01/19/25 14:21) dizziness, blurred vision HPI Comprehensive Diabetes Asmnt Most Recent Diabetes Results: 2 Microalb/Creat Ratio, (<30) 35.7 ug/mg cr H 06/14/24 Cholesterol, (<200) 173 mg/dL 06/14/24 HDL Cholesterol, (>40) 63 mg/dL 06/14/24 Triglycerides, (<150) 82 mg/dL 06/14/24 Creatinine, (0.5-1.4) 1.00 mg/dL 09/17/24 BUN, (9-16) 12 mg/dL 09/17/24 Sodium, (135-145) 141 mmol/L 09/17/24 Potassium, (3.3-5.1) 3.3 mmol/L 09/17/24 Chloride, (96-108) 107 mmol/L 09/17/24 Carbon Dioxide, (22-29) 24 mmol/L 09/17/24 Calcium, (8.4-10.2) 8.8 mg/dL Δ 09/17/24 AST, (5-31) 21 U/L 09/15/24 ALT, (0-31) 13 U/L 09/15/24 Total Protein, (6.5-8.0) 5.6 g/dL L 09/15/24 Albumin, (3.5-5.0) 3.1 g/dL L 09/15/24 [facility] Medical History (Updated 01/19/25 @ 14:30 by Ck Yeung MD) Epidermal cyst Bacteremia Primary osteoarthritis, right shoulder CVA (cerebral vascular accident) Bleeding hemorrhoids Carpal tunnel syndrome, bilateral Internal and external hemorrhoids without complication Diverticulosis Rectal bleed Varicose veins of both lower extremities with pain Hx pulmonary embolism Rectal bleeding Obesity (BMI 30-39.9) Overactive bladder Migraine GERD without esophagitis Allergic rhinitis Fibromyalgia Vitamin B12 deficiency Asthma Bilateral primary osteoarthritis of knee Pure hypercholesterolemia Benign essential hypertension Bilateral lower extremity edema Mammogram abnormal Intertrigo Breast nodule Goiter Vitamin D deficiency HLD (hyperlipidemia) T2DM (type 2 diabetes mellitus) Arthritis Breast pain, right Calcific tendinitis of right hip Right lumbar radiculopathy Right hip pain Low back pain Surgical History Hx of breast surgery History of colonoscopy History of mammogram History of incision and drainage Hx of cataract extraction Hx of cholecystectomy Hx of tubal ligation Hx of eye surgery History of tonsillectomy and adenoidectomy Family History Father Hypertension Myocardial infarction Stroke Mother Hypertension Diabetes Social History Household Members: Spouse and Children Housing: Homeless Are you a primary care process manager to a significant other at home: No Do you presently have visiting nurse or other home services: No Alcohol intake: never Patient Tobacco Use Status: Never used Tobacco e-Cigarette/Vaping Use: Never Used Second Hand Smoke Exposure: No service: No Current occupational status: disabled Cognitive needs: No Hearing needs: No Vision needs: Yes (Glasses) Assessment & Plan Assessment & Plan (1) T2DM (type 2 diabetes mellitus): Code(s): E11.9 - Type 2 diabetes mellitus without complications Qualifiers: 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 nursing home insulin use: with dedicated intermodal truck driver use 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 complication status: with hyperglycemia Qualified Code(s): E11.65 - Type 2 diabetes mellitus with hyperglycemia; Z79.4 - intermediate (current) use of insulin Plan: Personal Continuous Glucose Monitor: Patients CGM information reviewed, Pt uses [employer] with phone vicente Patient is experiencing some overnight hypoglycemia, patient is currently taking Lantus 36 units daily recommended to patient to reduce Lantus to 32 units daily Overnight patient's glucose remains mostly within target, however after patient's starts eat in with 10 units of NovoLog patient's postprandial glucose is high. Patient did report that she does sometimes forget to take pre meal NovoLog, and frequently use drinking fruit juice with meals. Reviewed the following information with patient and her daughter: Blood glucose monitoring When/how often to test Target blood sugar ranges Introduction to Nutrition Importance of healthy diet in managing DM Diet is personalized to individual preference Review patient?s regular diet/food preferences Who prepares meals/does food shopping/ Dining out?/ Barriers? How diet effects glucose Carbohydrates: What is a carbohydrate/Which food/food groups are considered carbohydrates Effect of carbohydrates on blood glucose Portion sizes Basic carb counting (if applicable per nursing assessment) Plate method Meal planning Recommendations: Follow plate method, consistent carbs and read nutritional labels. Recommended to patient she find alternative for beverages at mealtimes that are not high in carbohydrates Patient able to insert sensor independently at home without issue.? Portions of this note were created using voice recognition software, please excuse any words or phrases that may have been misinterpreted. Patient Instructions: Reduce Lantus from 36 units to 32 units Reduce fruit juice intake Follow up with visual educator in 3 months Coding Level of Care Code Est Pt Level 1 (02052) Diagnoses Type 2 diabetes mellitus with hyperglycemia, with long-term current use of insulin E11.65; Z79.4 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 nursing home insulin use: with dedicated intermodal truck driver use 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 complication status: with hyperglycemia
== END 2025-02-06 15:42 | disposition home or self-care (01) ==
LOC: HO.ENCR 15:16
PROVIDERS: PCP Internal Medicine; Visit Provider Registered Nurse Diabetes Educator
DX: E11.65 Type 2 diabetes mellitus with hyperglycemia (principal); Z79.4 Long term (current) use of insulin

== ENCOUNTER → 2025-02-06 15:16 | Outpatient (BNVA) | payer MEDICARE, MEDICAID, SELFPAY | PROVIDERS: PCP Internal Medicine; Visit Provider Registered Nurse Diabetes Educator | DX: E11.65 Type 2 diabetes mellitus with hyperglycemia (principal); Z79.4 Long term (current) use of insulin | CPT/HCPCS: 99211 ==

== ENCOUNTER 2025-02-14 12:46 | Outpatient (AMB) | payer MEDICARE, SELFPAY ==
--- NOTE | 2025-02-14 12:57 | MHC.PC.OV ---
Vital Signs 02/14/25 12:58 Height 5 ft 7 in Weight 184 lb 4.903 oz BMI 28.9 BP 166/100 H Blood Pressure Location Lt brachial Position Sitting Pulse 78 Pulse Source Pulse Oximeter Pulse Oximetry (%) 97 Oxygen Delivery Method Room Air Intake Visit Reasons: annual exam - see comments Boxing Inspector Required: No Accompanied by: Self / Same As Patient Allergies Penicillins (PENICILLINS) Allergy (Severe, Verified 02/14/25 13:34) SOB, rash, itching codeine (CODEINE) Allergy (Intermediate, Verified 02/14/25 13:34) RASH SOB oxycodone (From PERCOCET) Allergy (Intermediate, Verified 02/14/25 13:34) RASH SOB kiwi (KIWI) Allergy (Mild, Verified 02/14/25 13:34) ITCHY IF TOUCHES pineapple (PINEAPPLE) Allergy (Mild, Verified 02/14/25 13:34) ITCHY IF TOUCHES metformin Adverse Reaction (Intermediate, Verified 02/14/25 13:34) dizziness, blurred vision Medication List - Last Reconciled 02/14/25 by Erick Villanueva MD acetaminophen 650 mg PO Q4H PRN albuterol sulfate 2.5 mg (3 mL) continuous nebulization Q4-6H PRN amlodipine 10 mg PO DAILY ascorbate calcium (vitamin C) 500 mg PO DAILY 90 days aspirin (Adult Aspirin Regimen) 81 mg PO DAILY 90 days atorvastatin 80 mg PO DAILY blood pressure monitor As directed blood sugar diagnostic (OneTouch Ultra Test strips) 5 times per day blood sugar diagnostic (FreeStyle Lite Strips) As directed to test blood sugar three times a day blood-glucose meter (FreeStyle Valencia Lite kit) As directed blood-glucose meter (OneTouch Ultra2 Meter kit) As directed 3x/day blood-glucose sensor (FreeStyle Carol 3 Plus Sensor device) As directed every 15 days carvedilol (Coreg) 25 mg PO BID 90 days chlorpromazine 50 mg PO TID 90 days cholecalciferol (vitamin D3) 5,000 units PO DAILY 90 days clopidogrel 75 mg PO DAILY 90 days [compression stockings Use daily as directed as needed, strength - medium; length - knee high ] cyanocobalamin (vitamin B-12) 1,000 mcg PO DAILY 90 days ferrous sulfate 325 mg PO BID folic acid 1 mg PO DAILY 90 days gabapentin 400 mg PO TID 30 days glucagon 3 mg/actuation (Baqsimi) 3 mg intranasal ONCE glucose 4 grams PO Q15M PRN insulin glargine (Lantus U-100 Insulin) 32 units (0.32 mL) subcut DAILY insulin lispro (Humalog U-100 Insulin) 10 sliding scale doses See Protocol subcut TIDAC lancets 5 times per day lancets (FreeStyle Lancets) As directed test blood sugar three times a day [LIGHTWEIGHT STANDARD WHEELCHAIR As directed] [LIGHTWEIGHT WHEELCHAIR As directed] losartan 100 mg PO DAILY 90 days pen needle, diabetic (BD Nella 2nd Gen Pen Needle) test 5 times per day pen needle, diabetic (BD Ultra-Fine Micro Pen Needle) 5 times a day as directed - Lantus QD and Humalog QID pioglitazone 15 mg PO DAILY 30 days potassium chloride ER 10 mEq PO DAILY [ROLLATOR As directed] tirzepatide (Mounjaro) 5 mg (0.5 mL) subcut QWEEK tramadol 50 mg PO TID PRN 30 days [Transport wheel chair As directed] Ventolin HFA 90 mcg/actuation (albuterol sulfate) 2 puffs inhalation Q4-6H PRN NS [WALKER LEG RUBBER TIPS As directed] Tobacco use date assessed: 02/14/25 Fall risk assessment: No Falls in past year Last assessed Fall Risk: 02/14/25 Dental Screening Dental Screen Date: 02/14/25 Did you have a dental visit in the last 12 months?: Yes Did you have a dental problem in the last 6 months where you did not have access to dental care?: No Was dental information given to patient?: Patient has dentist [facility] Medical History (Updated 01/19/25 @ 14:30 by Ck Yeung MD) Epidermal cyst Bacteremia Primary osteoarthritis, right shoulder CVA (cerebral vascular accident) Bleeding hemorrhoids Carpal tunnel syndrome, bilateral Internal and external hemorrhoids without complication Diverticulosis Rectal bleed Varicose veins of both lower extremities with pain Hx pulmonary embolism Rectal bleeding Obesity (BMI 30-39.9) Overactive bladder Migraine GERD without esophagitis Allergic rhinitis Fibromyalgia Vitamin B12 deficiency Asthma Bilateral primary osteoarthritis of knee Pure hypercholesterolemia Benign essential hypertension Bilateral lower extremity edema Mammogram abnormal Intertrigo Breast nodule Goiter Vitamin D deficiency HLD (hyperlipidemia) T2DM (type 2 diabetes mellitus) Arthritis Breast pain, right Calcific tendinitis of right hip Right lumbar radiculopathy Right hip pain Low back pain Surgical History Hx of breast surgery History of colonoscopy History of mammogram History of incision and drainage Hx of cataract extraction Hx of cholecystectomy Hx of tubal ligation Hx of eye surgery History of tonsillectomy and adenoidectomy Family History Father Hypertension Myocardial infarction Stroke Mother Hypertension Diabetes Social History Household Members: Spouse and Children Housing: Homeless Are you a primary floor care specialist to a significant other at home: No Do you presently have visiting nurse or other home services: No Alcohol intake: never Patient Tobacco Use Status: Never used Tobacco e-Cigarette/Vaping Use: Never Used Second Hand Smoke Exposure: No service: No Current occupational status: disabled Cognitive needs: No Hearing needs: No Vision needs: Yes (Glasses) Questionnaire PHQ-9 Over the last 2 weeks, how often have you been bothered by any of the following problems? 1. Little interest or pleasure in doing things: not at all 2. Feeling down, depressed, or hopeless: not at all 3. Trouble falling or staying asleep, or sleeping too much: not at all 4. Feeling tired or having little energy: not at all 5. Poor appetite or overeating: not at all 6. Feeling bad about yourself - or that you are a failure or have let yourself or your family down: not at all 7. Trouble concentrating on things, such as reading the newspaper or watching television: not at all 8. Moving or speaking so slowly that other people could have noticed. Or the opposite - being so fidgety or restless that you have been moving around a lot more than usual: not at all 9. Thoughts that you would be better off or of hurting yourself in some way: not at all Total score: 0 Source: Developed by Drs. Taj Willson, Elaine Tsai, Dyllan Singh and colleagues, with an educational cory from [employer] Thrive Questionnaire Date Thrive assessed: 02/14/25 I am a: Patient What is your living situation today?: I have a steady place to live Within the past 12 months, did the food you bought not last and you didn't have the money to get more?: Never true Within the past 12 months, did you worry whether your food would run out before you got money to buy more?: Never true Do you have trouble paying for medicines?: No Do you have trouble getting transportation to medical appointments?: No Do you have trouble paying your heating and electricity bill?: No Do you have trouble taking care of your child, family member or friend?: No Do you have trouble with day-to-day activities such as bathing, preparing meals, shopping, managing finances, etc.?: No Are you currently unemployed and looking for a job?: No Are you interested in more education?: No Please select the resources that you would like help with: None Currently or been in a relationship where the following occur: No concerns reported THRIVE Score: 0 AUDIT C Alcohol Use Questionnaire (AUDIT-C) 1. How often do you have a drink containing alcohol?: Never 3. How often do you have six or more drinks on one occasion?: Never Total Score: 0 Score Reviewed/Action Taken: Yes LELE-7 AMB Questionnaire LELE-7 Date LELE - 7 assessed: 02/14/25 Feeling nervous, anxious, or on edge: 0 = Not at all Not being able to stop or control worryin = Not at all Worrying too much about different things: 0 = Not at all Trouble relaxin = Not at all Being so restless that it is hard to sit still: 0 = Not at all Becoming easily annoyed or irritable: 0 = Not at all Feeling afraid as if something awful might happen: 0 = Not at all Total LELE-7 score (0-4 normal; 5-9 mild; 10-14 moderate; 15-21 severe): 0 Source: Developed by Drs. Taj Willson, Elaine Tsai, Dyllan Singh and colleagues, with an educational cory from [employer] LELE-7 Assessment Billing LELE-7 Assessment Tool: LELE-7 Assessment 76965 Physical exam (Primary Care) Vital Signs: Last Vital Signs Pulse 78 02/14/25 12:58 BP 166/100 H 02/14/25 12:58 Pulse Ox 97 02/14/25 12:58 Oxygen Delivery Method Room Air 02/14/25 12:58 BMI result Body Mass Index 28.9 Tobacco/Smoking Status: Tobacco use Status Tobacco use date assessed 02/14/25 02/14/25 13:04 Patient Tobacco Use Status Never used Tobacco 02/14/25 13:04 e-Cigarette/Vaping Use Never Used 02/14/25 13:04 PHQ-9: PHQ-9 Score PHQ-9: Total score 0 02/14/25 13:53 Thrive Assessment: Date of Thrive Assessment Date Thrive assessed 02/14/25 02/14/25 13:04 Currently or been in a relationship where the following occur: No concerns reported Results AMB Hemoglobin A1c AMB Hemoglobin A1c 7.7 % Last Edit by ADRIENNE Peña on 02/14/25 13:46 Results Reviewed Results Reviewed: Laboratory Last Values Hgb A1c (Clinic) 7.7 % (4.0-6.0) H 02/14/25 13:39 Coding Additional Codes LELE-7 Assessment Billing - LELE-7 Assessment Tool: LELE-7 Assessment 04076 ([id number]) Assessment & Plan Assessment & Plan Orders: Orders AMB Hemoglobin A1c Today Z13.9 - Encounter for screening, unspecified Medications: New hydralazine 10 mg PO TID 270 tabs 1RF 90 days
[2025-02-14 12:58] VITALS: BP 166/100; PULSE 78; O2SAT 97; BMI 28.9
--- OUTSIDE RECORDS SUMMARY | 2025-02-14 16:25 | XMS_ITS | Encounter Summary ---
Author Organization [facility] Address [address] [facility] [address] [place] [address] Phone Care Team Providers Care Assistant Manager/Embalmer Name Role Phone Erick Villanueva MD Primary Care Provider [phone] Encounter Details Date Type Department Care Team (Late st Contact Info) Description 07/23/2023 Procedure Pass [facility], Ct Scan - [address] [address] Social History Tobacco Use Types Packs/Day Years [...] 1:55 PM EDT Jovi Akins RN * [place] Suicide Severity Rating Scale (Screener/Recent Self-Report) Question [...] on filedocumented in this encounter Care Teams Assistant Manager/Embalmer Relationship Specialty Start Date End Date Erick Villanueva MD [address] [place] [address] [place] [address] PCP - General Internal Medicine 07/23/23 documented as of this encounter Additional Source Comments The information contained in this document represents components of the legal health record. It is not the complete legal health record.[facility]
--- OUTSIDE RECORDS SUMMARY | 2025-02-14 16:25 | XMS_ITS | Encounter Summary ---
Author Organization [facility] Address [address] [facility] [address] [place] [address] Phone Care Team Providers Care Dairy Bar Manager Name Role Phone Erick Villanueva MD Primary Care Provider [phone] Encounter Details Date Type Department Care Team (Late st Contact Info) Description 07/23/2023 Procedure Pass [facility], Ct Scan - [address] [address] Social History Tobacco Use Types Packs/Day Years [...] 1:55 PM EDT Jovi Akins RN * [place] Suicide Severity Rating Scale (Screener/Recent Self-Report) Question [...] on filedocumented in this encounter Care Teams Dairy Bar Manager Relationship Specialty Start Date End Date Erick Villanueva MD [address] [place] [address] [place] [address] PCP - General Internal Medicine 07/23/23 documented as of this encounter Additional Source Comments The information contained in this document represents components of the legal health record. It is not the complete legal health record.[facility]
--- OUTSIDE RECORDS SUMMARY | 2025-02-14 16:25 | XMS_ITS | Clinical Summary ---
Author Organization [facility] Address [address] [facility] [address] [place] [address] Phone Care Team Providers Care Gymnastics Coach Or Instructor Name Role Phone Erick Villanueva MD Primary Care Provider [phone] Allergies Active Allergy Reactions Criticality Noted Date [...] Active ferrous sulfate 325 mg (65 mg [place] iron) tablet Take 325 mg by mouth [...] EDT) SODIUM 140 133 - 146 mmol/L [facility] CHLORIDE 102 96 - 108 mmol/L [facility] POTASSIUM 3.7 3.3 - 5.1 mmol/L [facility] CO2 25 21 - 35 mmol/L [facility] BUN 17 6 - 19 mg/dL [facility] CREATININE 0.50 0.5 - 1.5 mg/dL [facility] GLUCOSE 57(L) 70 - 99 mg/dL [facility] CALCIUM 8.6 8.4 - 10.3 mg/dL [facility] EGFR 103 >59 mL/min/1.7 3m2 [facility] Comment:Estimated glomerular filtration rate calculated using the CKD-EPI refit equation. ANION GAP 17 10 - 20 mmol/L [facility] Blood 07/23/2023 2:03 PM EDT 07/23/2023 2:06 PM EDT us Yulisa Gregg PA-C LAB BLOOD BKR OR DERABLES Final Result [facility] [address] [place] [address] from Last 3 Months or Most Recently Relevant to Health Maintenance Insurance [place] B [facility] MEDICARE REPLACEMENT [place] Member Subscriber Plan / Payer (Ef fective 2004-) Name:Lisha Valderramaina Member ID:[id number] Relation to Subscriber:Self Name:Lisha Valderramaina Subscriber ID:[id number] Payer ID:[id number] Group ID:Not on file Type:Medicare Address: [facility] [email or web address] [facility] [address] [place] [phone] [place] [address] MEDICARE REPLACEMENT [facility] MEDICARE PART A & B [facility] MEDICARE REPLACEMENT [facility] [place] [phone] MEDICARE PART A & B [facility] MEDICARE REPLACEMENT [place] B [facility] MEDICARE REPLACEMENT [facility] MEDICARE PART A & B [facility] MEDICARE REPLACEMENT Care Teams Gymnastics Coach Or Instructor Relationship Specialty Start Date End Date Erick Villanueva MD [address] [place] [address] [facility] [place] [address] PCP - General Internal Medicine 07/23/23 Additional Source Comments The information contained in this document represents components of the legal health record. It is not the complete legal health record.[facility]
== END 2025-02-14 13:58 | disposition home or self-care (01) ==
LOC: HO.HMCH 12:47
PROVIDERS: PCP Internal Medicine; Visit Provider Internal Medicine
DX: Z13.9 Encounter for screening, unspecified (principal)

== ENCOUNTER → 2025-02-14 12:46 | Outpatient (BNVA) | payer MEDICARE, SELFPAY | PROVIDERS: PCP Internal Medicine; Visit Provider Internal Medicine | DX: Z00.00 Encounter for general adult medical examination without abnormal findings (principal); I63.9 Cerebral infarction, unspecified; I69.351 Hemiplegia and hemiparesis following cerebral infarction affecting right dominant side; E78.00 Pure hypercholesterolemia, unspecified; G24.9 Dystonia, unspecified; E11.65 Type 2 diabetes mellitus with hyperglycemia; I10 Essential (primary) hypertension; M79.7 Fibromyalgia; M17.0 Bilateral primary osteoarthritis of knee; M19.011 Primary osteoarthritis, right shoulder; M81.0 Age-related osteoporosis without current pathological fracture; J45.40 Moderate persistent asthma, uncomplicated; K21.9 Gastro-esophageal reflux disease without esophagitis; E53.8 Deficiency of other specified B group vitamins; Z87.11 Personal history of peptic ulcer disease; E66.9 Obesity, unspecified; Z13.31 Encounter for screening for depression; Z13.39 Encounter for screening examination for other mental health and behavioral disorders | CPT/HCPCS: 83036; 96127; 99397 ==

== ENCOUNTER 2025-03-08 13:59 | Outpatient (AMB) | payer MEDICARE, SELFPAY ==
--- NOTE | 2025-03-08 14:01 | A.OFFVIS_ITS ---
Vital Signs 03/08/25 14:16 Height 5 ft 7 in Weight 184 lb 4.903 oz BMI 28.9 Intake Visit Reasons: excison (R) shoulder Intake Note: Office procedure: Excision of cyst right shoulder Nylon Operator Required: No Accompanied by: Daughter Allergies Penicillins (PENICILLINS) Allergy (Severe, Verified 03/08/25 14:07) SOB, rash, itching codeine (CODEINE) Allergy (Intermediate, Verified 03/08/25 14:07) RASH SOB oxycodone (From PERCOCET) Allergy (Intermediate, Verified 03/08/25 14:07) RASH SOB kiwi (KIWI) Allergy (Mild, Verified 03/08/25 14:07) ITCHY IF TOUCHES pineapple (PINEAPPLE) Allergy (Mild, Verified 03/08/25 14:07) ITCHY IF TOUCHES metformin Adverse Reaction (Intermediate, Verified 03/08/25 14:07) dizziness, blurred vision HPI HPI excison (R) shoulder: Details: She is here for excision of a cyst from the right shoulder. ON LICENSE OF [facility] Medical History Osteoporosis Epidermal cyst Bacteremia Primary osteoarthritis, right shoulder CVA (cerebral vascular accident) Bleeding hemorrhoids Carpal tunnel syndrome, bilateral Internal and external hemorrhoids without complication Diverticulosis Rectal bleed Varicose veins of both lower extremities with pain Hx pulmonary embolism Rectal bleeding Obesity (BMI 30-39.9) Overactive bladder Migraine GERD without esophagitis Allergic rhinitis Fibromyalgia Vitamin B12 deficiency Asthma Bilateral primary osteoarthritis of knee Pure hypercholesterolemia Benign essential hypertension Bilateral lower extremity edema Mammogram abnormal Intertrigo Breast nodule Goiter Vitamin D deficiency HLD (hyperlipidemia) T2DM (type 2 diabetes mellitus) Arthritis Breast pain, right Calcific tendinitis of right hip Right lumbar radiculopathy Right hip pain Low back pain Surgical History Hx of breast surgery History of colonoscopy History of mammogram History of incision and drainage Hx of cataract extraction Hx of cholecystectomy Hx of tubal ligation Hx of eye surgery History of tonsillectomy and adenoidectomy Family History Father Hypertension Myocardial infarction Stroke Mother Hypertension Diabetes Social History Household Members: Spouse and Children Housing: Homeless Are you a primary career guidance technician to a significant other at home: No Do you presently have visiting nurse or other home services: No Alcohol intake: never Patient Tobacco Use Status: Never used Tobacco e-Cigarette/Vaping Use: Never Used Second Hand Smoke Exposure: No service: No Current occupational status: disabled Cognitive needs: No Hearing needs: No Vision needs: Yes (Glasses) Physical Exam Vital Signs: BMI result Body Mass Index 28.9 Office Procedures Excision Details: She was in reclining position and turned to the right . The area of the cyst on the right shoulder was prepped and draped. Lidocaine 1% was used for local anesthesia. I made an elliptical incision in the skin surrounding the cyst with a blade 15. This carried down through the full-thickness of the skin and subc utaneous fat to excise this entire cystic induration. This cystic induration was about 1.8 cm in widest dimension. The incision was closed with full- thickness nylon 3-0 simple interrupted sutures. Dressings were applied. The procedure was completed. She tolerated the procedure well. There were no immediate complications. Minimal blood loss. [address]-qived/arms/legs 1.1-2cm Procedure code (CPT) selection complete Assessment & Plan Assessment & Plan (1) Epidermal cyst: Code(s): L72.0 - Epidermal cyst Category: Medical Plan: Excision of the cyst from the right shoulder was done in the office under local anesthesia. She tolerated the procedure well. She was instructed on good wound care. I will see her in the office for removal of sutures. She can take Tylenol and ibuprofen for pain. Orders: Orders AMB Excision 03/08/25 L72.0 - Epidermal cyst Surgical 03/08/25 L72.0 - Epidermal cyst Medications: New lidocaine-epinephrine 1 %-1:100,000 8 mL Infiltration ONCE 10 mL 0RF L72.0 - Epidermal cyst Coding Level of Care Code Procedure Only Diagnoses Epidermal cyst L72.0 CPT Codes Trunk/Arms/Legs - CPT: 36499-wzcdx/arms/legs 1.1-2cm ([id number])
[2025-03-08 14:16] VITALS: BMI 28.9
--- OUTSIDE RECORDS SUMMARY | 2025-03-08 18:37 | XMS_ITS | Encounter Summary ---
Author Organization [facility] Address [address] [facility] [address] [place] [address] Phone Care Team Providers Care Appellate Court Clerk Name Role Phone Erick Villanueva MD Primary Care Provider [phone] Encounter Details Date Type Department Care Team (Late st Contact Info) Description 07/23/[address] [facility], Ct Scan - [address] [address] Social History Tobacco Use Types Packs/Day Years [...] 1:55 PM EDT Jovi Akins RN * [place] Suicide Severity Rating Scale (Screener/Recent Self-Report) Question Answer Date of Assessment Author 1. Wish to be (Past 1 Month) No 07/23/2023 1:55 PM EDT Jovi Akins RN 2. Non-Specific Active Suicidal Thoughts (Past 1 Month) No 07/23/2023 1:55 PM EDT Jovi Akins RN 6. Suicidal Behavior (Lifetime) No 07/23/2023 1:55 PM EDT Jovi Aikns RN documented as of this encounter Plan of Treatment Not on file documented as of this encounter Visit Diagnoses Not on filedocumented in this encounter Care Teams Appellate Court Clerk Relationship Specialty Start Date End Date Erick Villanueva MD [address] [place] [address] [place] [address] PCP - General Internal Medicine 07/23/23 documented as of this encounter Additional Source Comments The information contained in this document represents components of the legal health record. It is not the complete legal health record.[facility]
--- OUTSIDE RECORDS SUMMARY | 2025-03-08 18:37 | XMS_ITS | Encounter Summary ---
Author Organization [facility] Address [address] [facility] [address] [place] [address] Phone Care Team Providers Care Family Court Justice Name Role Phone Erick Villanueva MD Primary Care Provider [phone] [phone] Encounter Details Date Type Department Care Team (Late st Contact Info) Description 07/23/2023 Procedure Pass [facility], Ct Scan - [address] [address] Social History Tobacco Use Types Packs/Day Years [...] 1:55 PM EDT Jovi Akins RN * [place] Suicide Severity Rating Scale (Screener/Recent Self-Report) Question [...] on filedocumented in this encounter Care Teams Family Court Justice Relationship Specialty Start Date End Date Erick Villanueva MD [address] [place] [address] [place] [address] PCP - General Internal Medicine 07/23/23 documented as of this encounter Additional Source Comments The information contained in this document represents components of the legal health record. It is not the complete legal health record.[facility]
--- OUTSIDE RECORDS SUMMARY | 2025-03-08 18:37 | XMS_ITS | Clinical Summary ---
Author Organization [facility] Address [address] [facility] [address] [place] [address] Phone Care Team Providers Care Reel Hooker Name Role Phone Erick Villanueva MD Primary Care Provider [phone] [phone] Allergies Active Allergy Reactions Criticality Noted Date [...] EDT) SODIUM 140 133 - 146 mmol/L [facility] CHLORIDE 102 96 - 108 mmol/L [facility] POTASSIUM 3.7 3.3 - 5.1 mmol/L [facility] CO2 25 21 - 35 mmol/L [facility] BUN 17 6 - 19 mg/dL [facility] CREATININE 0.50 0.5 - 1.5 mg/dL [facility] GLUCOSE 57(L) 70 - 99 mg/dL [facility] CALCIUM 8.6 8.4 - 10.3 mg/dL [facility] EGFR 103 >59 mL/min/1.7 3m2 [facility] Comment:Estimated glomerular filtration rate calculated using the CKD-EPI refit equation. ANION GAP 17 10 - 20 mmol/L [facility] Blood 07/23/2023 2:03 PM EDT 07/23/2023 2:06 PM EDT us Yulisa Gregg PA-C LAB BLOOD BKR OR DERABLES Final Result [facility] [address] [place] [address] from Last 3 Months or Most Recently Relevant to Health Maintenance Insurance [place] B [facility] MEDICARE REPLACEMENT [place] B Member Subscriber Plan / Payer (Ef fective 2004-) Name:Lisha Valderramaina Member ID:[id number] Relation to Subscriber:Self Name:Lisha Valderramaina Subscriber ID:[id number] Payer ID:[id number] Group ID:Not on file Type:Medicare Address: [facility] [employer] [facility] [address] [place] [phone] [place] [address] MEDICARE REPLACEMENT [facility] MEDICARE PART A & B [facility] MEDIC[facility] RE[facility] [place] [phone] MEDICARE PART A & B [facility] MEDICARE REPLAC[place] B [facility] MEDICARE REPLACEMENT [facility] MEDICARE PART A & B [facility] MEDICARE REPLACEMENT Care Teams Reel Hooker Relationship Specialty Start Date End Date Erick Villanueva MD [address] [place] [address] [facility] [place] [address] PCP - General Internal Medicine 07/23/23 Additional Source Comments The information contained in this document represents components of the legal health record. It is not the complete legal health record.[facility]
== END 2025-03-08 14:34 | disposition home or self-care (01) ==
LOC: HO.HGS 14:00
PROVIDERS: PCP Internal Medicine; Visit Provider Surgery
DX: L72.0 Epidermal cyst (principal)
CPT/HCPCS: 11402

== ENCOUNTER 2025-03-08 13:59 | Outpatient (REF) | payer MEDICARE, SELFPAY ==
--- OUTSIDE RECORDS SUMMARY | 2025-03-08 20:12 | XMS_ITS | Data Portability ---
Author Organization LISA Lal [facility], [address] Address [address] [place] [address] Assessment No assessment recorded. Plan of Treatment Reminders Order Date Submit Date Provider Last Modified By Organization Details Last Modified Time Details Appointments None recorded. Lab None recorded. Referral None recorded. Procedures None recorded. Surgeries None recorded. Imaging None recorded. Medication Orders nystatin 100,000 unit/gram topical cream 2022 023 [id number], [address] [facility] [address] [facility] [place], [id number], 11:04:44 Patient TargetsNo targets recorded. Patient Instructions Encounter Date Encounter Id Patient Instructions Last Modified By Organization Details Last Modified Time 10/18/2022 [id number] yeast skin infection: care instructions Not available 10/18/2022 11:05:09 Use the ointment as prescribed. See printed instructions. Your blood pressure was elevated today and should be re-checked by your doctor. Follow-up with your doctor this week. Seek Emergency Medical evaluation for any worsening symptoms, particularly for increased pain, redness or for fever, chills, purulent drainage. [email or web address] Not available 10/18/2022 11:06:42 Reason for Referral None Reported. Problems Name Problem SNOMED Code Status Onset Date Resolution Date Notes Provider Name and Address Organization Details Recorded Time 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 73645126 Active 2022 LISA Mota 10:41:50 Hypertensive disorder 59141463 Active 2022 LISA Mota [facility] 10:41:56 Anxiety 45793789 Active 2022 Vicki Aliza null, PA - [facility] 3 10:42:07 Arthritis 3652544 Active 2022 Vicki Bassett null, PA - [facility] 10:42:24 Asthma 829651652 Active 2022 Vicki Aliza null, PA - [facility] 3 10:42:37 Problem Notes None recorded. Procedures Surgical History Date Name Laterality Status Provider Name and Address Organization Details Recorded Time ligation of fallopian tube completed Vicki Bassett PA - [facility] 10/18/2022 10:42:58 tonsillectomy completed Vicki Aliza PA - [facility] 10/18/2022 10:43:07 Imaging Results None recorded. Procedure Notes None recorded. Medical Equipment None Reported. Allergies Allergen ID Allergen Name Allergen Category Reaction Reaction Severity Criticality Documentation Date Start Date Code Code System Note Provider Name and Address Organization Details Recorded Time 536257 Product containin g penicilli n (product) medicatio n Not available Not available Not available 10/18/2022 23317 8001 SNOMED Vicki Bassett null, PA - [facility] 10:41:28 [id number] codeine medicatio n Not available Not available Not available 10/18/2022 2670 RxNorm Vicki Bassett null, PA - [facility] 10:41:33 Medications Name Sig Start Date Stop Date Status Note LastModified by Organization Details LastModified Time albuterol sulfate 2.5 mg/3 mL (0.083 %) solution for nebulizatio n INHALE 3ML VIA NEBULIZER EVERY 4-6 HOURS NEEDED FOR BRONCHOSP ASM active Not Available Not Available No t Available ibuprofen 800 mg tablet TAKE 1 TABLET BY MOUTH EVERY 8 HOURS FOR 5 DAYS active Not Available Not Available No t Available tizanidine 4 mg tablet TAKE 1 TABLET BY MOUTH EVERY 8 HOURS NEEDED FOR MUSCLE SPASMS active Not Available Not Available No t Available FreeStyle Lancets 28 gauge USE TO TEST BLOOD SUGAR THREE TIMES DAILY DIRECTED active Not Available Not Available No t Available prednisone 20 mg tablet TAKE 3 TABLETS BY MOUTH DAILY WITH FOOD active Not Available Not Available No t Available gabapentin 400 mg capsule TAKE 1 CAPSULE BY MOUTH THREE TIMES DAILY active Not Available Not Available No t Available clindamycin HCl 150 mg capsule TAKE 1 CAPSULE BY MOUTH EVERY 6 HOURS FOR 7 DAYS 10/18 completed Not Available Not Available Not Available aspirin 81 mg tablet,joya yed release TAKE 1 TABLET BY MOUTH DAILY active Not Available Not Available No t Available tramadol 50 mg tablet TAKE 1 TABLET BY MOUTH THREE TIMES DAILY NEEDED FOR PAIN active Not Available Not Available No t Available ondansetron 8 mg disintegrat ing tablet DISSOLVE 1 TABLET ON THE TONGUE EVERY 8 HOURS NEEDED FOR NAUSEA OR VOMITING active Not Available Not Available No t Available prednisolon e acetate 1 % eye drops,suspe nsion INSTILL 1 DROP IN RIGHT EYE TWICE DAILY NEEDED active Not Available Not Available No t Available nystatin 100,000 unit/gram topical cream APPLY TOPICALLY TO THE AFFECTED AREA TWICE DAILY active Not Available Not Available No t Available lorazepam 1 mg tablet TAKE 1 TABLET BY MOUTH DAILY NEEDED FOR ANXIETY active Not Available Not Available No t Available celecoxib 100 mg capsule TAKE 1 CAPSULE BY MOUTH TWICE DAILY NEEDED FOR PAIN active Not Available Not Available No t Available atropine 1 % eye drops INSTILL 1 DROP IN RIGHT EYE TWICE DAILY active Not Available Not Available No t Available losartan 100 mg tablet TAKE 1 TABLET BY MOUTH DAILY active Not Available Not Available No t Available fluticasone propionate 50 mcg/actuati on nasal spray,suspe nsion SHAKE LIQUID AND USE 2 SPRAYS IN EACH NOSTRIL DAILY active Not Available Not Available No t Available risperidone 0.5 mg tablet TAKE 1 TABLET BY MOUTH TWICE DAILY active Not Available Not Available No t Available insulin lispro (U-100) 100 unit/mL subcutaneou s pen INJECT 2-10 UNITS PER SLIDING SCALE THREE TIMES DAILY WITH MEALS AND AT BEDTIME active Not Available Not Available No t Available Novolog FlexPen U-100 Insulin aspart 100 unit/mL (3 mL) subcutaneou s INJECT 2 UNITS TO 10 UNITS FOUR TIMES DAILY WITH MEALS AND AT BEDTIME active Not Available Not Available No t Available rosuvastati n 40 mg tablet TAKE 1 TABLET BY MOUTH DAILY active Not Available Not Available No t Available nitrofurant oin monohydrate /macrocryst als 100 mg capsule TAKE 1 CAPSULE BY MOUTH EVERY 12 HOURS FOR 7 DAYS. MUST TAKE WITH A MEAL/FOOD active Not Available Not Available No t Available Lantus Solostar U-100 Insulin 100 unit/mL (3 mL) subcutaneou s pen ADMINISTE R 20 UNITS UNDER THE SKIN EVERY EVENING active Not Available Not Available No t Available diclofenac 1 % topical gel APPLY TOPICALLY TO THE AFFECTED AREA FOUR TIMES DAILY active Not Available Not Available No t Available Calmoseptin e 0.44 %-20.6 % topical ointment APPLY FOUR TIMES DAILY NEEDED FOR PERIANAL SKIN IRRITATIO N active Not Available Not Available No t Available Trulicity 0.75 mg/0.5 mL subcutaneou s pen injector ADMINISTE R 0.75 MG UNDER THE SKIN EVERY WEEK active Not Available Not Available No t Available BD Ultra-Fine Micro Pen Needle 32 gauge x 1/4 USE TO INJECT LANTUS EVERY DAY AND HUMALOG FOUR TIMES DAILY DIRECTED active Not Available Not Available No t Available BD Nella 2nd Gen Pen Needle 32 gauge x USE 5 TIMES A DAY DIRECTED active Not Available Not Available No t Available OneTouch Delica Plus Lancet 33 gauge USE TO CHECK BLOOD SUGAR 5 TIMES DAILY active Not Available Not Available No t Available Vitals Date Recorded Body height Body mass index (BMI) Body weight Respiratory rate Pain severity - 0-10 verbal numeric rating [Score] - Reported Oxygen saturation Heart rate Body temperature Systolic And Diastolic Provider Name and Address Organization Details Last Updated DateTime 3 170.18 cm 43.9 kg/m2 835656. 86 g 18 /min 6 94 % 86 /min 97.9 [degF] 189/80 mm[Hg] Vicki Abrams PA - [facility] 10:45:15 Social History Question Answer Notes LastModified by nWay Details LastModified Time Tobacco Smoking Status Never Smoker Vicki gil PA - [facility] 10/18/2022 10:42:51 Have You Had Direct Contact, Or Contact During Intimacy, With Monkeypox Rash, Scabs, Or Body Fluids From A Person With Monkeypox? No Information not available 10/18/2022 Have You Recently Traveled Abroad? No Information not available 10/18/2022 Sex: Unknown Functional Status Question Answer Note LastModified by nWay Details LastModified Time Do you use any illicit or recreational drugs? No Information not available 10/18/2022 Do you or have you ever used any other forms of tobacco or nicotine? No Information not available 10/18/2022 What is your level of alcohol consumption? None Information not available 10/18/2022 Mental Status None recorded. Family History Relationship Description Onset Age of this Age Resolved Age Notes LastModified by Organization Details LastModified Time Father No current problems or disability Not available 10/18 10:42:45 Mother No current problems or disability Not available 10/18 10:42:45 Medical History No medical history recorded. Gynecological History Statement/Question Response Is there any chance of ? No LMP N/A Obstetrics History GPAL:G 0 P 0 0 0 0 Immunizations Vaccine Type Date Status Note Provider Nam e and Address Organization Details Recorded Time Influenza, split virus, quadrivalent, preservative 6 completed Vicki Bassett null, PA - [facility] 10/18/2022 10:41:37 Influenza, split virus, quadrivalent, preservative 7 completed Vicki Aliza null, PA - [facility] 10/18/2022 10:41:37 COVID-19, mRNA, LNP-S, PF, 100 mcg/0.5mL dose or 50 mcg/0.25mL dose 1 completed Vicki Bassett null, PA - [facility] 10/18/2022 10:41:37 COVID-19, mRNA, LNP-S, PF, 100 mcg/0.5mL dose or 50 mcg/0.25mL dose 1 completed Vicki Bassett null, PA - [facility] 10/18/2022 10:41:37 pneumococcal polysaccharide PPV23 2 completed Vicki Bassett null, PA - [facility] 10/18/2022 10:41:37 Tdap 6 completed Vicki Bassett null, PA - [facility] 10/18/2022 10:41:37 Influenza, split virus, trivalent, preservative 5 completed Vicki Bassett null, PA - [facility] 10/18/2022 10:41:37 Td (adult), 5 Lf tetanus toxoid, preservative free, adsorbed 4 completed LISA Mota - [facility] 10/18/2022 10:41:37 Past Encounters Encounter ID Performer Location Encounter Start Date Encounter Closed Date Diagnosis/Indication Diagnosis SNOMED-CT Code Diagnosis ICD10 Code Diagnosis IMO Codes Diagnosis Note [id number] Tricia Orellana MD [address] [facility] [address] [place] [address] 10/18/2022 09:55:26 10/18/2022 11:08:07 Candidal intertrigo 990742794 B37.2 Health Concerns Section Related Observation LastModified by Organization Detai ls LastModified Time None Recorded Concern Status LastModified by Organization Details LastModified Time None Recorded Advance Directives Directive None Recorded Payers Insurance Date Sequence Insurance Name Policy Number Policy Carrizales Covered Member ID Carrizales Member ID Guarantor Name 10/18/2022 3 [place] [employer] Lanny Valderrama [id number] Lanny Valderrama 10/18/2022 1 [employer] (MEDICARE REPLACEMENT/ ADVANTAGE - HMO) Lanny Valderrama [id number] Lanny Valderrama 10/18/2022 2 [place] [facility] Lanny Valderrama [id number] Lanny Valderrama Notes Date Note Type Note Provider Name and Address Organization Details Recorded Time 10/18/2022 text/html UC Rash/Skin LesionReported by PatientHPIFor quality, patient reportschristi maldonado andred. For source of patient information, patient reportsinformation obtained from patientandpatient arrived at urgent care ambulatory. For location, patient reportsgroinandthighs([place].). For severity, patient reportsmoderate. For duration, patient reports1 months. For context, patient reportsno new detergent or skin product,no recent change in medication,no expsoure to new clothes/jewelry,no recent travel, andno recent illness. For alleviating factors, patient reportsnothing gives relief. For associated symptoms, patient reportsno feverandno fatigue. 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 She used OTC monistat cream vaginally and topically to her labia with no improvement. No fever, chills, vaginal discharge, urinary symptoms. Her blood sugar was 198 this morning. She checks her blood sugar frequently and doses her insulin as instructed by her doctor. Tricia [facility]rellana [facility] [address] [facility] [place] [address], [place] - [facility] 10/18/2022 11:17:22 OBGyn Episode No OBEpisode recorded.
== END 2025-03-08 14:00 | disposition home or self-care (01) ==
LOC: HO.LNP 13:59
PROVIDERS: PCP Internal Medicine; Visit Provider Surgery
DX: L72.0 Epidermal cyst (principal)
CPT/HCPCS: 11402; 88304

== ENCOUNTER → 2025-03-20 14:18 | Outpatient (BNVA) | payer MEDICARE, SELFPAY | PROVIDERS: PCP Internal Medicine; Visit Provider Surgery | DX: Z48.02 Encounter for removal of sutures (principal); Z98.890 Other specified postprocedural states | CPT/HCPCS: 99211 ==